=== PATIENT | female | born 1955 | race Caucasian/White ===

== ENCOUNTER 2017-04-20 06:55 | Observation (INO) | payer MEDICARE, OTHER, SELFPAY ==
[2017-04-20] VITALS (13 sets, daily range): BP systolic 121–162; BP diastolic 48–84; PULSE 67–99; RESP 14–22; TEMP 36.1–37.5; O2SAT 93–98; BMI 47.2; BMI 45.9; BMI 46.0
--- NOTE | 2017-04-20 07:13 | ED.VISSUMM ---
- ER Visit Summary Date of Service: 04/20/17 Chief Complaint: Dizzy meaning off balance History of Present Illness: The patient is a 61 F is a history of prior A. fib, DVT and PE, njb-qpntaqb-xfovifclc diabetes, hypertension and COPD. She is on Coumadin. This morning she felt off balance. She did fall 2 days ago and hit her head but denies any headache. His any room spinning. She denies any numbness, tingling or weakness to any of her extremities. She denies problems using her arms or legs. She denies any speech or acute visual changes. Physical Examination: Appearing female. Vital signs are stable and she is afebrile. Pulse ox 90% room air no signs of hypoxia. HEENT exam is unremarkable except she does have a small contusion by her right eyebrow that occurred when she fell 2 days ago. It is nontender. There is no facial droop. Normal speech. Neck nontender. Lungs clear to auscultation bilaterally. Heart regular rate and rhythm no murmur. Chest wall nontender. Abdomen is soft and nontender. No peritoneal signs. She is moving all 4 extremities. They appear to be neurovascularly intact. 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 Dorsi plantar flexion is intact. Back exam nontender. Neurologically she is awake and alert. Has normal speech. No facial droop. Fingertip to nose is within normal limits. Her NIH score lying in bed is normal and 0. Test Results: CT of her brain without contrast is read by the radiologist reviewed by me shows no acute bleed. Chronic changes and atrophy. No acute stroke. CBC normal except for platelet count of 145,000. She has had low platelet counts before. BMP normal. She is on Coumadin her INR is subtherapeutic at 1.3. Her EKG is a sinus rhythm a rate of 86. Emergency Department Course and Treatment: She is complaining of feeling off balance with a recent fall and on Coumadin. A CT of her head and labs will be obtained. Treatment Plan: On repeat exam she is doing well at 08 40. She was able to stand and able to walk but just felt off balance. She has no signs of vertigo. In the light that the patient is off balance she may have had a stroke that is not showing up on CAT scan or this may be secondary to her recent head injury. She is comfortable being admitted and I spoke to her and her family about that. I spoke to the hospitalist and she will be admitted. Disposition: Admit Impression: Acute dizziness and a sensation of being off balance of uncertain etiology Recent fall and head injury Subtherapeutic anticoagulation on Coumadin with an INR of 1.3. Prior history of A. fib, prior history of DVT and PEs and history of dmg-cgcynjc-hszbkwztr diabetes This note was generated with Qranio dictation software. It may contain incorrect words, spelling, and punctuation that were not noted in review of the chart prior to signing ED Disposition - Plan for ED Patient: Chief Complaint: Dizziness Referrals: Ruddy Corral Chi, MD [Primary Care Provider] -
--- NOTE | 2017-04-20 07:17 | ED.DCSUM_ITS ---
- ER Visit Summary Date of Service: 04/20/17 Chief Complaint: Dizzy meaning off balance History of Present Illness: The patient is a 61 F is a history of prior A. fib, DVT and PE, frh-fnpmdxq-lnaadxwik diabetes, hypertension and COPD. She is on Coumadin. This morning she felt off balance. She did fall 2 days ago and hit her head but denies any headache. His any room spinning. She denies any numbness, tingling or weakness to any of her extremities. She denies problems using her arms or legs. She denies any speech or acute visual changes. Physical Examination: Appearing female. Vital signs are stable and she is afebrile. Pulse ox 90% room air no signs of hypoxia. HEENT exam is unremarkable except she does have a small contusion by her right eyebrow that occurred when she fell 2 days ago. It is nontender. There is no facial droop. Normal speech. Neck nontender. Lungs clear to auscultation bilaterally. Heart regular rate and rhythm no murmur. Chest wall nontender. Abdomen is soft and nontender. No peritoneal signs. She is moving all 4 extremities. They appear to be neurovascularly intact. 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 Dorsi plantar flexion is intact. Back exam nontender. Neurologically she is awake and alert. Has normal speech. No facial droop. Fingertip to nose is within normal limits. Her NIH score lying in bed is normal and 0. Test Results: CT of her brain without contrast is read by the radiologist reviewed by me shows no acute bleed. Chronic changes and atrophy. No acute stroke. CBC normal except for platelet count of 145,000. She has had low platelet counts before. BMP normal. She is on Coumadin her INR is subtherapeutic at 1.3. Her EKG is a sinus rhythm a rate of 86. Emergency Department Course and Treatment: She is complaining of feeling off balance with a recent fall and on Coumadin. A CT of her head and labs will be obtained. Treatment Plan: On repeat exam she is doing well at 08 40. She was able to stand and able to walk but just felt off balance. She has no signs of vertigo. In the light that the patient is off balance she may have had a stroke that is not showing up on CAT scan or this may be secondary to her recent head injury. She is comfortable being admitted and I spoke to her and her family about that. I spoke to the hospitalist and she will be admitted. Disposition: Admit Impression: Acute dizziness and a sensation of being off balance of uncertain etiology Recent fall and head injury Subtherapeutic anticoagulation on Coumadin with an INR of 1.3. Prior history of A. fib, prior history of DVT and PEs and history of non-insulin -dependent diabetes This note was generated with Gigzolo dictation software. It may contain incorrect words, spelling, and punctuation that were not noted in review of the chart prior to signing ED Disposition - Plan for ED Patient: Chief Complaint: Dizziness Referrals: Ruddy Corral Chi, MD [Primary Care Provider] -
--- NOTE | 2017-04-20 07:17 | EKG12_ITS ---
Test Reason : DIZZINESS Blood Pressure : / mmHG Vent. Rate : 086 BPM Atrial Rate : 086 BPM P-R Int : 218 ms QRS Dur : 092 ms QT Int : 384 ms P-R-T Axes : 101 037 021 degrees QTc Int : 459 ms Sinus rhythm with 1st degree A-V block Otherwise normal ECG Confirmed by ADEEL ALBERTO ([id number]), greeting card editor UGO HENLEY ([id number]) on 04/24/2017 1:10:00 PM Referred By: JOEL Confirmed By:ADEEL ALBERTO
--- NOTE | 2017-04-20 07:17 | CT_ITS ---
STUDY: CT BRAIN WITHOUT CONTRAST REASON FOR EXAM: Female, 61 years old. Off balance. Head injury. Patient is on Coumadin. RADIATION DOSAGE (If Supplied By Facility): CTDIvol = ( 44.99 ) mGy, DLP = ( 779.24 ) mGycm TECHNIQUE: Transaxial CT imaging of the brain was performed without administration of intravenous contrast material. Individualized dose optimization techniques were used for this CT. COMPARISON: Comparison is made with prior study December 02, 2014. FINDINGS: Normal soft tissue structures. Normal calvarium. There is mild cerebral atrophy with widening of the extra-axial spaces and ventricular dilatation. Normal white matter tracts of the cerebral hemispheres. Normal basal ganglia and thalami. Normal brainstem. Normal cerebellum. There is no intracranial hemorrhage. There are no findings of an acute ischemic infarction. Minimal mucosal thickening of the ethmoid sinuses. CT/Brain/Head without Contrast IMPRESSION: Chronic involutional changes of the brain. Electronically Signed: Tariq Kapoor MD at 8:22 EST Tel [phone], Service support ,
[2017-04-20 07:40] LABS: Absolute Lymphocyte Count 1.85 X10^3/ul (0.83-4.51); Absolute Neutrophil Count 3.3 X10^3/uL (2.0-7.7); Basophil# 0.03 X10^3/uL; Basophil% 0.5 % (0-1); Eosinophil# 0.09 X10^3/uL; Eosinophils% 1.5 % (0-5); Hematocrit 38.7 % (37-47); Hemoglobin 13.1 g/dl (12.0-15.0); Lymphocyte # 1.85 X10^3/ul (4.0); Lymphocyte % 31.1 % (19-41); Mean Corp Hgb Conc 33.9 g/gl (32-36); Mean Corpuscular Hgb 33.5 pg (27.0-32.0); Mean Platelet Vol. 9.4 fl (6.2-12.0); Monocyte% 11.8 % (0-10); Neutrophil # 3.26 X10^3/uL (2.7-7.7); Neutrophil % 54.9 % (47-70); Platelet Count 145 K/mm3 (150-450); RBC Distribution Width CV 13.9 % (11.6-14.6); RBC Distribution Width SD 48.9 fl (35.1-43.9); Red Blood Count 3.91 M/mm3 (4.2-5.4); White Blood Count 5.9 K/mm3 (4.4-11.0)
[2017-04-20 07:41] LABS: POSITIVE DIFFERENTIAL NO
[2017-04-20 07:42] LABS: POSITIVE COUNT NO; POSITIVE MORPHOLOGY NO
[2017-04-20 07:44] LABS: Anion Gap 9 (5-15); BUN 15 mg/dL (7-18); Calcium,Total 8.4 mg/dL (8.5-10.1); Chloride 109 mmol/L (98-107); Creatinine, Serum 0.75 mg/dL (0.55-1.02); EST Glomerular Filtration Rate 83 mL/min (>60); Est Glom Filt Rate - Afr Amer 100 mL/min (>60); Estimated Creatinine Clearance 63.51 ml/min; Glucose 137 mg/dL (74-106); Potassium 4.5 mmol/L (3.5-5.1); Sodium Level 142 mmol/L (136-145)
[2017-04-20 08:02] LABS: International Normalized Ratio 1.3; Prothrombin Time (Protime)PT. 15.5 SECONDS (11.7-14.9)
[2017-04-20] MEDS: Ondansetron 4 MG/2 ML Vial IV (08:11)
--- NOTE | 2017-04-20 14:06 | ECHOD_ITS ---
Reason For Study: TIA/STROKE Procedure This was a 2D Doppler, Color Flow transthoracic echocardiogram. The study was technically difficult. Exam performed portable in patient room. Left Ventricle Normal size and thickness. The estimated ejection fraction is 65 %. Normal diastology for age. No regional wall motion abnormalities noted. Right Ventricle Normal size and thickness. Normal systolic function. Atria The left atrium is mildly enlarged. Normal right atrium. Normal atrial septum. Mitral Valve The mitral valve is structurally normal. No prolapse or stenosis seen. Tricuspid Valve Normal tricuspid valve. Trivial tricuspid valve insufficiency. Right ventricular systolic pressure estimated to be 24 mmHg. Aortic Valve Trisinus/trileaflet aortic valve. Mild diffuse aortic valve thickening. Mild focal aortic valve calcification. Mild aortic stenosis. Pulmonic Valve Normal pulmonic valve. Great Vessels Normal aortic root. Normal arch. Normal inferior vena cava. Inferior vena cava collapse with sniff. Pericardium/Pleural No pericardial effusion. MMode/2D Measurements & Calculations LVIDd: 4.6 cm IVSd: 0.86 cm LVOT diam: 1.9 cm LVIDs: 3.0 cm LVPWd: 1.0 cm LVOT area: 2.8 cm2 RVDd: 2.8 cm FS: 34.2 % Ao root diam: 3.0 cm LAV(MOD-bp): 58.0 ml EDV(MOD-sp4): 95.7 ml LA dimension: 3.9 cm LAV(MOD-bp) Indexed: 27.0 ml/m2 ESV(MOD-sp4): 41.0 ml LAV(MOD-sp2): 59.3 ml EF(MOD-sp4): 57.2 % LAV(MOD-sp4): 55.2 ml EDV(MOD-sp2): 108.9 ml SV(MOD-sp4): 54.7 ml SV(MOD-sp2): 58.7 ml EF(MOD-sp2): 53.9 % LA A4 area: 19.8 cm2 RA A4 area: 13.3 cm2 Doppler Measurements & Calculations MV E max saroj: 106.2 cm/sec Ao V2 max: 221.9 cm/sec LV V1 max: 127.0 cm/sec MV A max saroj: 66.9 cm/sec Ao max P.7 mmHg LV V1 max P.4 mmHg MV E/A: 1.6 Ao V2 mean: 149.9 cm/sec LV V1 mean P.2 mmHg Ao mean P.5 mmHg LV V1 mean: 80.5 cm/sec Ao V2 VTI: 45.2 cm LV V1 VTI: 29.8 cm KRISHNA(I,D): 1.8 cm2 KRISHNA(V,D): 1.6 cm2 SV(LVOT): 82.9 ml PA V2 max: 132.7 cm/sec TR max saroj: 217.5 cm/sec TR max P.9 mmHg Interpretation Summary The estimated ejection fraction is 65 %. Normal diastology for age. The left atrium is mildly enlarged. Trivial tricuspid valve insufficiency. Right ventricular systolic pressure estimated to be 24 mmHg. Mild aortic stenosis. Compared to echo report dated 03/08/2016, no appreciable changes noted. The study was technically difficult. Ordering Physician: Ubaldo Kilpatrick Referring Physician: Ruddy Croral Chi Performed By: Emily Pederson RDCS, RVT
--- NOTE | 2017-04-20 14:06 | MRI_ITS ---
MR Brain WO/W Contrast INDICATION: vertigo SINCE THIS A.M. COMPARISON: None TECHNIQUE: Multiplanar multisequence MRI examination of the brain without and with IV contrast. 10 mL of gadolinium was given intravenously. FINDINGS: There is no evidence of restricted diffusion to suggest acute infarction. The ventricular system is normal in size and symmetric. Cortical sulci and basal cisterns are well seen. The supra and infratentorial brain parenchyma demonstrates normal signal, appearance is stable compared to the prior study from November 2012. There is no evidence of parenchymal hemorrhage, mass effect, midline shift, or abnormal extra-axial collection. Cerebellopontine angles are normal and symmetric. The mastoid air cells are clear. The paranasal sinuses are clear. After contrast administration, there is no abnormal enhancement identified. MRI/Brain W/WO Contrast IMPRESSION: Unremarkable, age-appropriate MRI examination of the brain. at 2116 Reported and signed by: Corazon Holm MD Electronically Signed: Corazon Holm MD at 20:14 EST Tel , Service support ,
--- NOTE | 2017-04-20 14:06 | MRI_ITS ---
MRA Neck WO/W Contrast INDICATION: vertigo SINCE THIS A.M. COMPARISON: None TECHNIQUE: MR angiogram of the neck without and with IV contrast and 2-D yopi-aq-snvvya technique with 3-D reformatted images. FINDINGS: Study is slightly limited by motion and patient body habitus. Origin of the great vessels from the aortic arch appears within normal limits. Detailed evaluation of the origins of the common carotid arteries is not possible. There is positive flow related signal in the common carotid arteries bilaterally. There is no convincing evidence of significant luminal narrowing at the origins of the internal carotid arteries. Internal carotid arteries are normal and symmetric to the level of the skull base. Posterior circulation demonstrates positive flow related signal in the vertebral arteries, vertebral arteries appear codominant. MRI/MRA Neck WITH and W/O Contrast IMPRESSION: Slightly Limited study. No abnormality identified. at 1711 Reported and signed by: Corazon Holm MD Electronically Signed: Corazon Holm MD at 16:09 EST Tel , Service support ,
--- NOTE | 2017-04-20 14:06 | MRI_ITS ---
MRA Head W/O Contrast INDICATION: vertigo SINCE THIS A.M. COMPARISON: None TECHNIQUE: MR angiogram of the [place] of [place] and 3-D gqke-dz-uzyaxy technique with 3-D reformatted images. FINDINGS: There is symmetric flow related signal in the intracranial portions of the internal carotid arteries and symmetric supply to the anterior middle cerebral arteries. Significant motion artifact is present with doubling artifact. There is normal flow related signal in the basilar artery, the basilar artery gives rise to both posterior cerebral arteries. MRI/MRA Head ONLY without Contrast IMPRESSION: Limited study due to motion. Evaluation for small aneurysm is not possible. No evidence of large vessel occlusion. at 7054 Reported and signed by: Corazon Holm MD Electronically Signed: Corazon Holm MD at 16:13 EST Tel , Service support ,
--- NOTE | 2017-04-20 14:44 | PCM.HP.STD ---
Problem List (1) Dizziness Status: Acute (2) Atrial fibrillation Status: Chronic (3) Benign essential hypertension Status: Chronic (4) Dyslipidemia Status: Chronic (5) Morbid obesity Status: Chronic (6) Obstructive sleep apnea Status: Chronic (7) Hx of pulmonary embolus Status: Chronic History of Present Illness Date of Admission: 04/20/17 Chief Complaint: dizziness The patient is a 61 year old F awoke with dizziness. Pt attempted to ambulate in the halls and was unsteady. Symptoms improved when sitting, but worse when standing up. Never had this before. Sought attention in the ED. CT negative for any acute process. Also, complained of some transient numbness of her right cheek. [] Past Medical History Past Medical History (Chronic Problems): Chronic Problems Atrial fibrillation (Chronic) Benign essential hypertension (Chronic) Dyslipidemia (Chronic) Morbid obesity (Chronic) Status post radiofrequency ablation operation for arrhythmia (Chronic) Obstructive sleep apnea (Chronic) Hx of pulmonary embolus (Chronic) Allergies flecainide [Flecainide] Allergy (Verified 04/20/17 06:57) Rash Home Medications: Ambulatory Orders Medication Instructions Recorded Albuterol Inhaler [Ventolin Hfa 2 puff INHALATION Q4H PRN PRN 04/20/17 (SP)] Atorvastatin Calcium [Lipitor] 40 mg PO QHS 04/20/17 Budesonide/Formoterol 160/4.5 2 puff INHALATION BID 04/20/17 [Symbicort 160/4.5 Mcg Inhaler (SP)] Calcium Carbonate [Calcium] 2 tab PO DAILY 04/20/17 Celecoxib [Celebrex] 200 mg PO DAILY 04/20/17 Ergocalciferol [Vitamin D] 50,000 unit PO QMONTH 04/20/17 Metformin HCl [Glucophage] 1,000 mg PO BIDCM 04/20/17 Multivitamins,Therapeutic 1 tablet PO DAILY 04/20/17 [Multivitamin] Olmesartan/Hydrochlorothiazide 1 tab PO DAILY 04/20/17 [Benicar Hct 40-12.5 MG Tab] Pramipexole Di-HCl [Mirapex] 0.5 mg PO BID 04/20/17 Solifenacin Succinate [Vesicare] 5 mg PO DAILY 04/20/17 Vit A/Vit C/Vit E/Zinc/Copper 1 each PO DAILY 04/20/17 [Preservision Areds Softgel] Vortioxetine Hydrobromide 20 mg PO DAILY 04/20/17 [Brintellix] Warfarin Sodium [Coumadin] 11 mg PO DAILY 04/20/17 Surgical History: rotator cuff repair, - Smoking Status: Never smoker - *Family History Paternal History Items: Diabetes, Heart Disease Maternal History Items: No pertinent history Review of Systems Constitutional: Denies: Chills, Fever, Weight Change Eyes: Denies: Blurred vision, Double vision HEENT: Denies: Head Aches, Sinus Congestion, Sinus Drainage Cardiovascular: Denies: Chest Pain, Palpitations Respiratory: Denies: Cough, Shortness of breath at rest, Sputum production Gastrointestinal: Denies: Abdominal Pain, Nausea, Vomiting Genitourinary: Denies: Dysuria Musculoskeletal: Denies: Joint Pain, Joint Tenderness Skin: Denies: Rash, Wounds Neurological: Reports: Balance problems, Numbness - right cheek. Denies: Blurred vision, Double vision, Change in Speech, Slurred speech, Confusion, Focal weakness, Incoordination Psychiatric: Reports: Depression Hematologic/ Lymphatic: Reports: Hx of blood clot. Denies: Easy Bruising, Easy Bleeding VTE Information - Inpt Only VTE Present on Admission: Yes Patient Problems: Active and Suspected Problems Dizziness (Acute) - Physical Exam General: Alert, Cooperative, No apparent distress HEENT: Atraumatic, Normocephalic Neck: No Nodes, Thyroid Normal Size and Texture Lungs: Clear to auscultation, Normal air movement, No rhonchi, No wheeze Cardiovascular: Regular rate, Regular Rhythm, Normal S1, Normal S2, No murmurs Abdomen: Bowel Sounds Present, Soft, Non Tender, Non-Distended, No Hepato-splenomegaly Extremities: No edema, No Calf Tenderness Skin: No rashes, No breakdown Musculoskeletal: No Tenderness to Palpation of Joints or Extremities, No Muscle Wasting Neurological: Cranial nerves II-XII grossly intact, Neuro grossly intact, Motor Exam 5/5 strength throughout, Muscle tone normal, Sensory exam intact to light touch and pain, Coordination normal Psych/Mental Status: Normal Affect, Appropriate Vital Signs Temp Pulse Resp BP Pulse Ox 36.5 C L 86 18 139/69 H 97 04/20/17 13:50 04/20/17 13:50 04/20/17 13:50 04/20/17 13:50 04/20/17 13:50 Oxygen Delivery Method Room Air Weight: 117.7 kg Body Mass Index (BMI) 45.9 Clinical Impression(s) from Imaging Studies Brain CT 04/20/17 07:17 IMPRESSION: Chronic involutional changes of the brain. Electronically Signed: Tariq Kapoor MD at 8:22 EST Tel [phone], Service support , Laboratory Results - last 24 hr 04/20/17 04/20/17 04/20/17 07:10 07:10 07:35 WBC 5.9 RBC 3.91 L Hgb 13.1 Hct 38.7 MCV 99.0 MCH 33.5 H MCHC 33.9 RDW 13.9 RDW Differential 48.9 H Plt Count 145 L MPV 9.4 Immature Gran % (Auto) 0.200 Neut % (Auto) 54.9 Lymph % (Auto) 31.1 [place] % (Auto) 11.8 H Eos % (Auto) 1.5 Baso % (Auto) 0.5 Absolute Neuts (auto) 3.3 Absolute Lymphs (auto) 1.85 Total Counted Not Reportable PT 15.5 H INR 1.3 Sodium 142 Potassium 4.5 Chloride 109 H Carbon Dioxide 24.0 Anion Gap 9 BUN 15 Creatinine 0.75 Estim Creat Clear Calc 63.51 Est GFR (MDRD) Af Amer 100 Est GFR (MDRD) Non-Af 83 BUN/Creatinine Ratio 20.0 Glucose 137 H Calcium 8.4 L Assessment/Plan Active and Suspected Problems Dizziness (Acute) 1. dizziness suspect peripheral, though cannot rule out central process check MRI brain, MRA head and neck, 2d echo if + CVA, consult neurology 2. VTE INR subtherapuetic add lovenox 3. h/o afib on telemetry, monitor 4. DVT proph: anticoagulation Code Visit OBSV E&M: 05619 Initial observation care L3
--- NOTE | 2017-04-20 14:52 | HP.PCM_ITS ---
Problem List (1) Dizziness Status: Acute (2) Atrial fibrillation Status: Chronic (3) Benign essential hypertension Status: Chronic (4) Dyslipidemia Status: Chronic (5) Morbid obesity Status: Chronic (6) Obstructive sleep apnea Status: Chronic (7) Hx of pulmonary embolus Status: Chronic History of Present Illness Date of Admission: 04/20/17 Chief Complaint: dizziness The patient is a 61 year old F awoke with dizziness. Pt attempted to ambulate in the halls and was unsteady. Symptoms improved when sitting, but worse when standing up. Never had this before. Sought attention in the ED. CT negative for any acute process. Also, complained of some transient numbness of her right cheek. [] Past Medical History Past Medical History (Chronic Problems): Chronic Problems Atrial fibrillation (Chronic) Benign essential hypertension (Chronic) Dyslipidemia (Chronic) Morbid obesity (Chronic) Status post radiofrequency ablation operation for arrhythmia (Chronic) Obstructive sleep apnea (Chronic) Hx of pulmonary embolus (Chronic) Allergies flecainide [Flecainide] Allergy (Verified 04/20/17 06:57) Rash Home Medications: Ambulatory Orders Medication Instructions Recorded Albuterol Inhaler [Ventolin Hfa 2 puff INHALATION Q4H PRN PRN 04/20/17 (SP)] Atorvastatin Calcium [Lipitor] 40 mg PO QHS 04/20/17 Budesonide/Formoterol 160/4.5 2 puff INHALATION BID 04/20/17 [Symbicort 160/4.5 Mcg Inhaler (SP)] Calcium Carbonate [Calcium] 2 tab PO DAILY 04/20/17 Celecoxib [Celebrex] 200 mg PO DAILY 04/20/17 Ergocalciferol [Vitamin D] 50,000 unit PO QMONTH 04/20/17 Metformin HCl [Glucophage] 1,000 mg PO BIDCM 04/20/17 Multivitamins,Therapeutic 1 tablet PO DAILY 04/20/17 [Multivitamin] Olmesartan/Hydrochlorothiazide 1 tab PO DAILY 04/20/17 [Benicar Hct 40-12.5 MG Tab] Pramipexole Di-HCl [Mirapex] 0.5 mg PO BID 04/20/17 Solifenacin Succinate [Vesicare] 5 mg PO DAILY 04/20/17 Vit A/Vit C/Vit E/Zinc/Copper 1 each PO DAILY 04/20/17 [Preservision Areds Softgel] Vortioxetine Hydrobromide 20 mg PO DAILY 04/20/17 [Brintellix] Warfarin Sodium [Coumadin] 11 mg PO DAILY 04/20/17 Surgical History: rotator cuff repair, - Smoking Status: Never smoker - *Family History Paternal History Items: Diabetes, Heart Disease Maternal History Items: No pertinent history Review of Systems Constitutional: Denies: Chills, Fever, Weight Change Eyes: Denies: Blurred vision, Double vision HEENT: Denies: Head Aches, Sinus Congestion, Sinus Drainage Cardiovascular: Denies: Chest Pain, Palpitations Respiratory: Denies: Cough, Shortness of breath at rest, Sputum production Gastrointestinal: Denies: Abdominal Pain, Nausea, Vomiting Genitourinary: Denies: Dysuria Musculoskeletal: Denies: Joint Pain, Joint Tenderness Skin: Denies: Rash, Wounds Neurological: Reports: Balance problems, Numbness - right cheek. Denies: Blurred vision, Double vision, Change in Speech, Slurred speech, Confusion, Focal weakness, Incoordination Psychiatric: Reports: Depression Hematologic/ Lymphatic: Reports: Hx of blood clot. Denies: Easy Bruising, Easy Bleeding VTE Information - Inpt Only VTE Present on Admission: Yes Patient Problems: Active and Suspected Problems Dizziness (Acute) - Physical Exam General: Alert, Cooperative, No apparent distress HEENT: Atraumatic, Normocephalic Neck: No Nodes, Thyroid Normal Size and Texture Lungs: Clear to auscultation, Normal air movement, No rhonchi, No wheeze Cardiovascular: Regular rate, Regular Rhythm, Normal S1, Normal S2, No murmurs Abdomen: Bowel Sounds Present, Soft, Non Tender, Non-Distended, No Hepato- splenomegaly Extremities: No edema, No Calf Tenderness Skin: No rashes, No breakdown Musculoskeletal: No Tenderness to Palpation of Joints or Extremities, No Muscle Wasting Neurological: Cranial nerves II-XII grossly intact, Neuro grossly intact, Motor Exam 5/5 strength throughout, Muscle tone normal, Sensory exam intact to light touch and pain, Coordination normal Psych/Mental Status: Normal Affect, Appropriate Vital Signs Temp Pulse Resp BP Pulse Ox 36.5 C L 86 18 139/69 H 97 04/20/17 13:50 04/20/17 13:50 04/20/17 13:50 04/20/17 13:50 04/20/17 13:50 Oxygen Delivery Method Room Air Weight: 117.7 kg Body Mass Index (BMI) 45.9 Clinical Impression(s) from Imaging Studies Brain CT 04/20/17 07:17 IMPRESSION: Chronic involutional changes of the brain. Electronically Signed: Tariq Kapoor MD at 8:22 EST Tel [phone], Service support , Laboratory Results - last 24 hr 04/20/17 04/20/17 04/20/17 07:10 07:10 07:35 WBC 5.9 RBC 3.91 L Hgb 13.1 Hct 38.7 MCV 99.0 MCH 33.5 H MCHC 33.9 RDW 13.9 RDW Differential 48.9 H Plt Count 145 L MPV 9.4 Immature Gran % (Auto) 0.200 Neut % (Auto) 54.9 Lymph % (Auto) 31.1 [place] % (Auto) 11.8 H Eos % (Auto) 1.5 Baso % (Auto) 0.5 Absolute Neuts (auto) 3.3 Absolute Lymphs (auto) 1.85 Total Counted Not Reportable PT 15.5 H INR 1.3 Sodium 142 Potassium 4.5 Chloride 109 H Carbon Dioxide 24.0 Anion Gap 9 BUN 15 Creatinine 0.75 Estim Creat Clear Calc 63.51 Est GFR (MDRD) Af Amer 100 Est GFR (MDRD) Non-Af 83 BUN/Creatinine Ratio 20.0 Glucose 137 H Calcium 8.4 L Assessment/Plan Active and Suspected Problems Dizziness (Acute) 1. dizziness * suspect peripheral, though cannot rule out central process * check MRI brain, MRA head and neck, 2d echo * if + CVA, consult neurology 2. VTE * INR subtherapuetic * add lovenox 3. h/o afib * on telemetry, monitor 4. DVT proph: anticoagulation Code Visit OBSV E&M: 97907 Initial observation care L3
--- NOTE | 2017-04-20 16:21 | NURSING ---
REPORT GIVEN TO KOFI House RN
[2017-04-20] MEDS: metFORMIN HCl 1,000 MG Tablet 1000 MG PO (16:36)
[2017-04-20] MEDS: Enoxaparin 40 MG/0.4 ML Syringe SC (16:36)
[2017-04-20 16:41] LABS: Bedside Glucose 127 mg/dL (70-110)
[2017-04-20] MEDS: Albuterol 2.5 MG/3 ML VIAL.NEB. INHALATION (19:25)
[2017-04-20] MEDS: Budesonide Respules 0.5 MG/2 ML AMPUL.NEB. INHALATION (19:26)
[2017-04-20] MEDS: Atorvastatin Calcium 40 MG Tablet PO (21:02)
[2017-04-20 22:06] LABS: Bedside Glucose 135 mg/dL (70-110)
[2017-04-21 02:57] VITALS: PULSE 78
[2017-04-21 03:10] VITALS: BP 117/44; PULSE 73; RESP 18; TEMP 36.7; O2SAT 95
[2017-04-21 06:14] LABS: Absolute Neutrophil Count 3.3 X10^3/uL (2.0-7.7); Basophil# 0.02 X10^3/uL; Basophil% 0.3 % (0-1); Eosinophil# 0.07 X10^3/uL; Eosinophils% 1.1 % (0-5); Hematocrit 37.3 % (37-47); Hemoglobin 12.4 g/dl (12.0-15.0); Lymphocyte % 34.4 % (19-41); Mean Corp Hgb Conc 33.2 g/gl (32-36); Mean Corpuscular Hgb 32.8 pg (27.0-32.0); Mean Corpuscular Volume 98.7 fL (81-99); Mean Platelet Vol. 9.4 fl (6.2-12.0); Monocyte% 9.8 % (0-10); Neutrophil % 54.2 % (47-70); Platelet Count 153 K/mm3 (150-450); RBC Distribution Width SD 50.2 fl (35.1-43.9); Red Blood Count 3.78 M/mm3 (4.2-5.4); White Blood Count 6.1 K/mm3 (4.4-11.0)
[2017-04-21 06:15] LABS: POSITIVE COUNT NO; POSITIVE DIFFERENTIAL NO; POSITIVE MORPHOLOGY NO
[2017-04-21 06:28] LABS: International Normalized Ratio 1.7; Prothrombin Time (Protime)PT. 19.3 SECONDS (11.7-14.9)
[2017-04-21 06:56] LABS: Bedside Glucose 136 mg/dL (70-110)
[2017-04-21 07:00] VITALS: PULSE 70
[2017-04-21 07:00] LABS: Anion Gap 8 (5-15); BUN 13 mg/dL (7-18); BUN/Creat Ratio 17.9 RATIO (10-20); Calcium,Total 8.6 mg/dL (8.5-10.1); Chloride 105 mmol/L (98-107); Cholesterol 156 mg/dL (200); Creatinine, Serum 0.73 mg/dL (0.55-1.02); EST Glomerular Filtration Rate 86 mL/min (>60); Est Glom Filt Rate - Afr Amer 104 mL/min (>60); Estimated Creatinine Clearance 65.25 ml/min; Glucose 117 mg/dL (74-106); High Density Lipoprotein 52 mg/dL; Potassium 3.9 mmol/L (3.5-5.1); Sodium Level 142 mmol/L (136-145); Triglycerides 149 mg/dL; Very Low Density Lipoprotein 30 mg/dL (5-40)
[2017-04-21 07:24] VITALS: PULSE 74; RESP 16
[2017-04-21] MEDS: Budesonide Respules 0.5 MG/2 ML AMPUL.NEB. INHALATION (07:24)
[2017-04-21] MEDS: Albuterol 2.5 MG/3 ML VIAL.NEB. INHALATION (07:24)
--- NOTE | 2017-04-21 08:26 | PCM.PN.HOSP ---
Patient Problems: Active and Suspected Problems Dizziness (Acute) Subjective: no further dizziness. has been up w/o dizziness. feeling back to normal. never had this dizziness before. Vitals/I&O's: Vital Signs Temp Pulse Resp BP Pulse Ox 36.7 C 74 16 117/44 L 95 04/21/17 03:10 04/21/17 07:24 04/21/17 07:24 04/21/17 03:10 04/21/17 03:10 Oxygen Delivery Method Room Air Weight: 117.7 kg Body Mass Index (BMI) 45.9 Intake and Output for Last 24 Hours 04/19/17 04/20/17 04/21/17 23:59 23:59 23:59 Intake Total 720 / 720 240 / 240 Balance 720 / 720 240 / 240 General: Alert, Cooperative, No apparent distress HEENT: Atraumatic, Normocephalic Laboratory Results 04/20/17 16:34: POC Glucose 127 H 04/20/17 20:53: POC Glucose 135 H 04/21/17 05:40: WBC 6.1, RBC 3.78 L, Hgb 12.4, Hct 37.3, MCV 98.7, MCH 32.8 H, MCHC 33.2, RDW 14.0, RDW Differential 50.2 H, Plt Count 153, MPV 9.4, Immature Gran % (Auto) 0.200, Neut % (Auto) 54.2, Lymph % (Auto) 34.4, [place] % (Auto) 9.8, Eos % (Auto) 1.1, Baso % (Auto) 0.3, Absolute Neuts (auto) 3.3, Absolute Lymphs (auto) 2.10, Total Counted Not Reportable 04/21/17 05:40: PT 19.3 H, INR 1.7 04/21/17 05:40: Sodium 142, Potassium 3.9, Chloride 105, Carbon Dioxide 29.0, Anion Gap 8, BUN 13, Creatinine 0.73, Estim Creat Clear Calc 65.25, Est GFR (MDRD) Af Amer 104, Est GFR (MDRD) Non-Af 86, BUN/Creatinine Ratio 17.9, Glucose 117 H, Calcium 8.6, Triglycerides 149, Cholesterol 156, LDL Cholesterol 74, VLDL Cholesterol 30, HDL Cholesterol 52 04/21/17 06:50: POC Glucose 136 H Current Medications Acetaminophen (Tylenol) 650 mg PO Q6H PRN PRN PRN Reason: Mild Pain (1-3)/Temp > 100.7 F Albuterol Sulfate (Ventolin Aerosols) 2.5 mg INHALATION Q4H PRN PRN Reason: COUGH/WHEEZE Albuterol Sulfate (Ventolin Aerosols) 2.5 mg INHALATION Q6HWA.RT [facility] Last Admin: 04/21/17 07:24 Dose: 2.5 mg Aspirin (Aspirin, Baby) 81 mg PO DAILY@0800 [facility] Atorvastatin Calcium (Lipitor) 40 mg PO QHS [facility] Last Admin: 04/20/17 21:02 Dose: 40 mg Budesonide (Pulmicort Aerosol) 0.5 mg INHALATION Q12H.[facility] Last Admin: 04/21/17 07:24 Dose: 0.5 mg Calcium Carbonate (Tums) [facility] Enoxaparin Sodium (Lovenox) 40 mg SC DAILY@1000 [facility] Last Admin: 04/20/17 16:36 Dose: 40 mg Ergocalciferol (Vitamin D) 50,000 unit PO QMONTH [facility] Hydrochlorothiazide (Hydrochlorothiazide) 12.5 mg PO DAILY [facility] Last Admin: 04/20/17 16:27 Dose: Not Given Insulin Aspart (Novolog Flexpen (Bkc)) 0 units SC TIDAC [facility] PRN Reason: Protocol Last Admin: 04/21/17 07:28 Dose: Not Given Losartan Potassium (Cozaar) 100 mg PO DAILY [facility] Last Admin: 04/20/17 16:26 Dose: Not Given Magnesium Hydroxide (Milk Of Magnesia) 30 ml PO DAILY PRN PRN Reason: Constipation Metformin HCl (Glucophage) 1,000 mg [facility]ID[facility] Last Admin: 04/20/17 16:36 Dose: 1,000 mg Multivitamins (Multivitamin) 1 tablet [facility] Last Admin: 04/20/17 16:26 Dose: Not Given Ondansetron HCl (Zofran) 4 mg IV Q8H PRN PRN PRN Reason: NAUSEA Warfarin Sodium 6 mg/ Warfarin (Sodium 5 mg) 11 mg PO DAILY@1700 [facility] Last Admin: 04/20/17 16:53 Dose: 11 mg Assessment/Plan Active and Suspected Problems Dizziness (Acute) 1. dizziness suspect peripheral, though cannot rule out central process MRI/MRA negative PRN meclizine no need for vestibular rehab at this time as pt is asymptomatic and 1x occurrence. 2. VTE INR subtherapuetic add lovenox 3. h/o afib on telemetry, monitor 4. DVT proph: anticoagulation
--- NOTE | 2017-04-21 08:30 | PCM.DC ---
- Discharge Diagnoses Current Active Problems: Current Active and Chronic Problems Dizziness (Acute) You will use the following diet at home:: Calorie/Carbohydrate Controlled (specify 1200, 1400, etc) - 2000 kcal/day Your food should be the consistency of: Regular Your liquids should be the consistency of: Regular/Thin Discharge Activity: Return to Normal Activity Call your doctor if you observe: - - worsening dizziness Allergies/Adverse Reactions: Allergies flecainide [Flecainide] Allergy (Verified 04/20/17 06:57) Rash Medications to take at Discharge Albuterol Inhaler [Ventolin Hfa] 2 puff INHALATION Q4H PRN PRN 04/20/17 Atorvastatin Calcium [Lipitor] 40 mg PO QHS 04/20/17 Budesonide/Formoterol 160/4.5 [Symbicort 160/4.5 Mcg Inhaler (SP)] 2 puff INHALATION BID 04/20/17 Calcium Carbonate [Calcium] 2 tab PO DAILY 04/20/17 Celecoxib [Celebrex] 200 mg PO DAILY 04/20/17 Ergocalciferol [Vitamin D] 50,000 unit PO QMONTH 04/20/17 Metformin HCl [Glucophage] 1,000 mg PO BIDCM 04/20/17 Multivitamins,Therapeutic [Multivitamin] 1 tablet PO DAILY 04/20/17 Olmesartan/Hydrochlorothiazide [Benicar Hct 40-12.5 MG Tab] 1 tab PO DAILY 04/20/17 Pramipexole Di-HCl [Mirapex] 0.5 mg PO BID 04/20/17 Solifenacin Succinate [Vesicare] 5 mg PO DAILY 04/20/17 Vit A/Vit C/Vit E/Zinc/Copper [Preservision Areds Softgel] 1 each PO DAILY 04/20/17 Vortioxetine Hydrobromide [Trintellix] 20 mg PO DAILY 04/20/17 Warfarin Sodium [Coumadin] 11 mg PO DAILY 04/20/17 Meclizine HCl 25 mg PO TID PRN #15 tab.chew 04/21/17 The following prescriptions were given: Meclizine HCl 25 mg PO TID PRN #15 tab.chew PRN Reason: Dizziness Primary Care Physician: Ruddy Corral Chi, MD [Primary Care Provider] - Within 2 Weeks Proposed Discharge Date: 04/21/17
--- NOTE | 2017-04-21 08:33 | DCINST_ITS ---
- Discharge Diagnoses Current Active Problems: Current Active and Chronic Problems Dizziness (Acute) You will use the following diet at home:: Calorie/Carbohydrate Controlled ( specify 1200, 1400, etc) - 2000 kcal/day Your food should be the consistency of: Regular Your liquids should be the consistency of: Regular/Thin Discharge Activity: Return to Normal Activity Call your doctor if you observe: - - worsening dizziness Allergies/Adverse Reactions: Allergies flecainide [Flecainide] Allergy (Verified 04/20/17 06:57) Rash Medications to take at Discharge Albuterol Inhaler [Ventolin Hfa] 2 puff INHALATION Q4H PRN PRN 04/20/17 Atorvastatin Calcium [Lipitor] 40 mg PO QHS 04/20/17 Budesonide/Formoterol 160/4.5 [Symbicort 160/4.5 Mcg Inhaler (SP)] 2 puff INHALATION BID 04/20/17 Calcium Carbonate [Calcium] 2 tab PO DAILY 04/20/17 Celecoxib [Celebrex] 200 mg PO DAILY 04/20/17 Ergocalciferol [Vitamin D] 50,000 unit PO QMONTH 04/20/17 Metformin HCl [Glucophage] 1,000 mg PO BIDCM 04/20/17 Multivitamins,Therapeutic [Multivitamin] 1 tablet PO DAILY 04/20/17 Olmesartan/Hydrochlorothiazide [Benicar Hct 40-12.5 MG Tab] 1 tab PO DAILY 04/20 Pramipexole Di-HCl [Mirapex] 0.5 mg PO BID 04/20/17 Solifenacin Succinate [Vesicare] 5 mg PO DAILY 04/20/17 Vit A/Vit C/Vit E/Zinc/Copper [Preservision Areds Softgel] 1 each PO DAILY 04/20 Vortioxetine Hydrobromide [Trintellix] 20 mg PO DAILY 04/20/17 Warfarin Sodium [Coumadin] 11 mg PO DAILY 04/20/17 Meclizine HCl 25 mg PO TID PRN #15 tab.chew 04/21/17 The following prescriptions were given: Meclizine HCl 25 mg PO TID PRN #15 tab.chew PRN Reason: Dizziness Primary Care Physician: Ruddy Corral Chi, MD [Primary Care Provider] - Within 2 Weeks Proposed Discharge Date: 04/21/17
--- NOTE | 2017-04-21 08:33 | PCM.DC.SUM ---
Discharge Date and Diagnosis - Problem List Patient Problems: Active and Suspected Problems Dizziness (Acute) Date of Admission: 04/20/17 Date of Discharge: 04/21/17 - Primary Discharge Diagnosis Active and Suspected Problems Dizziness (Acute) - Secondary Discharge Diagnosis Chronic Problems Atrial fibrillation (Chronic) Benign essential hypertension (Chronic) Dyslipidemia (Chronic) Morbid obesity (Chronic) Status post radiofrequency ablation operation for arrhythmia (Chronic) Obstructive sleep apnea (Chronic) Hx of pulmonary embolus (Chronic) Hospital Course and Treatment Imaging Results: Clinical Impression(s) from Imaging Studies Brain CT 04/20/17 07:17 IMPRESSION: Chronic involutional changes of the brain. Electronically Signed: Tariq Kapoor MD at 8:22 EST Tel [phone], Service support , Brain MRI 04/20/17 14:06 IMPRESSION: Unremarkable, age-appropriate MRI examination of the brain. at 2116 Reported and signed by: Corazon Holm MD Electronically Signed: Corazon Holm MD at 20:14 EST Tel , Service support , Head MRA 04/20/17 14:06 IMPRESSION: Limited study due to motion. Evaluation for small aneurysm is not possible. No evidence of large vessel occlusion. at 8934 Reported and signed by: Corazon Holm MD Electronically Signed: Corazon Holm MD at 16:13 EST Tel , Service support , Neck MRA 04/20/17 14:06 IMPRESSION: Slightly Limited study. No abnormality identified. at 1201 Reported and signed by: Corazon Holm MD Electronically Signed: Corazon Holm MD at 16:09 EST Tel , Service support , Operations: None Procedures: None Summary of Care Provided: The patient is a 61 year old F presents with acute onset of dizziness upon awakening. Dizziness was positional. Patient never had events like this before. Patient was admitted and underwent a stroke workup with MRI and MRA. Those were negative. It is felt that the dizziness was peripheral such as benign paroxysmal positional vertigo. Patient will be provided his prescription for meclizine to be used as needed. Given that she has no symptoms at this time is been an isolated event that lasted less than 24 hours do not feel that vestibular rehab is necessary at this time though it could be considered at a later point if patient does have recurrent symptoms. [] Discharge Diet: 2000 Calorie Control Diet Discharge Activity: Return to Normal Activity Call your doctor if you observe: - - worsening dizziness Home Medications: Medications to take at Discharge Albuterol Inhaler [Ventolin Hfa] 2 puff INHALATION Q4H PRN PRN 04/20/17 Atorvastatin Calcium [Lipitor] 40 mg PO QHS 04/20/17 Budesonide/Formoterol 160/4.5 [Symbicort 160/4.5 Mcg Inhaler (SP)] 2 puff INHALATION BID 04/20/17 Calcium Carbonate [Calcium] 2 tab PO DAILY 04/20/17 Celecoxib [Celebrex] 200 mg PO DAILY 04/20/17 Ergocalciferol [Vitamin D] 50,000 unit PO QMONTH 04/20/17 Metformin HCl [Glucophage] 1,000 mg PO BIDCM 04/20/17 Multivitamins,Therapeutic [Multivitamin] 1 tablet PO DAILY 04/20/17 Olmesartan/Hydrochlorothiazide [Benicar Hct 40-12.5 MG Tab] 1 tab PO DAILY 04/20/17 Pramipexole Di-HCl [Mirapex] 0.5 mg PO BID 04/20/17 Solifenacin Succinate [Vesicare] 5 mg PO DAILY 04/20/17 Vit A/Vit C/Vit E/Zinc/Copper [Preservision Areds Softgel] 1 each PO DAILY 04/20/17 Vortioxetine Hydrobromide [Trintellix] 20 mg PO DAILY 04/20/17 Warfarin Sodium [Coumadin] 11 mg PO DAILY 04/20/17 Meclizine HCl 25 mg PO TID PRN #15 tab.chew 04/21/17 Following Prescrptions Were Given to Patient: Meclizine HCl 25 mg PO TID PRN #15 tab.chew PRN Reason: Dizziness Primary Care Physician: Ruddy Corral Chi, MD [Primary Care Provider] - Within 2 Weeks Disposition: Home Minutes spent on discharge:: 25 Patient Condition:: Good Meaningful Use Info Meaningful Use Diagnoses (Choose all that apply): None applicable Code Visit OBSV E&M: 90269 Observation care discharge
[2017-04-21 08:42] VITALS: BP 132/66; BP 135/68; BP 138/67; PULSE 84; PULSE 88; PULSE 93
[2017-04-21 08:51] VITALS: BP 135/68; PULSE 94; RESP 12; TEMP 36.7; O2SAT 94
[2017-04-21 08:56] VITALS: BMI 45.9
== END 2017-04-21 08:33 | disposition home or self-care (01) ==
LOC: ED 07:34 → PCU 12:19
PROVIDERS: Emergency Provider Emergency Medicine; Family Provider Family Medicine Geriatric Medicine; PCP Family Medicine Geriatric Medicine
DX: R42 Dizziness and giddiness (principal); I48.2 Chronic atrial fibrillation; J44.9 Chronic obstructive pulmonary disease, unspecified; I10 Essential (primary) hypertension; E66.01 Morbid (severe) obesity due to excess calories; E11.9 Type 2 diabetes mellitus without complications; E78.5 Hyperlipidemia, unspecified; G47.33 Obstructive sleep apnea (adult) (pediatric); Z68.42 Body mass index [BMI] 45.0-49.9, adult; Z71.3 Dietary counseling and surveillance; Z86.711 Personal history of pulmonary embolism; Z86.718 Personal history of other venous thrombosis and embolism; Z79.01 Long term (current) use of anticoagulants; Z79.899 Other long term (current) drug therapy; Z79.84 Long term (current) use of oral hypoglycemic drugs; Z79.51 Long term (current) use of inhaled steroids
CPT/HCPCS: 36415; 70450; 70544; 70549; 70553; 80048; 80061; 82962; 85025; 85610; 93005; 93306; 94640; 96372; 96374; 99218; 99285; A9585; Q9957; A4216; G0378; J2405

== ENCOUNTER → 2017-05-16 13:44 | Outpatient (CLI) | payer MEDICARE, OTHER, SELFPAY ==
--- NOTE | 2017-05-16 13:47 | RAD_ITS ---
STUDY: X-RAY - LUMBAR SPINE REASON FOR EXAM: Female, 61 years old. New onset pain after fall TECHNIQUE: 3 view(s) of the lumbar spine were obtained. COMPARISON: None FINDINGS: Normal lumbar lordosis. There is no substantial scoliosis. There is a normal alignment of the vertebrae. There is multilevel endplate spondylosis of the lumbar vertebrae. There is multi-level degenerative disc disease with multi-level disc space narrowing. There is no demonstrated fracture. The soft tissue structures are unremarkable. RAD/Lumbar Spine 2 or 3 Views IMPRESSION: Degenerative changes of the spine, as detailed above. Electronically Signed: Jesus Alberto Newton DO at 8:44 EDT Tel , Service support ,
== END ==
PROVIDERS: Family Provider Family Medicine Geriatric Medicine; PCP Family Medicine Geriatric Medicine; Visit Provider Anesthesiology Pain Medicine
DX: M47.816 Spondylosis without myelopathy or radiculopathy, lumbar region (principal)
CPT/HCPCS: 72100

== ENCOUNTER → 2017-07-11 15:36 | Outpatient (CLI) | payer MEDICARE, OTHER, SELFPAY ==
[2017-07-11 18:25] LABS: Amphetamine Urine VISTA NEGATIVE (<1000 ng/mL); Barbiturate Urine VISTA NEGATIVE (< 200 ng/mL); Benzodiazepine Urine VISTA NEGATIVE (< 200 ng/mL); Cocaine Urine VISTA NEGATIVE (< 300 ng/mL); Ecstacy Urine VISTA POSITIVE (< 500 ng/mL); Methadone Urine VISTA NEGATIVE (< 300 ng/mL); PCP Urine VISTA NEGATIVE (< 25 ng/mL); THC Urine VISTA NEGATIVE (< 50 ng/mL); Vista UDS pH Range 5
== END ==
PROVIDERS: Family Provider Family Medicine Geriatric Medicine; PCP Family Medicine Geriatric Medicine; Visit Provider Anesthesiology Pain Medicine
DX: F11.20 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, 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 (principal)
CPT/HCPCS: 80307

== ENCOUNTER → 2017-08-16 08:47 | Outpatient (CLI) | payer MEDICARE, OTHER, SELFPAY ==
--- NOTE | 2017-08-16 08:50 | RAD_ITS ---
STUDY: X-RAY - RIGHT SHOULDER REASON FOR EXAM: Female, 61 years old. Pain. Prior surgery. TECHNIQUE: 3 view(s) of the shoulder. COMPARISON: None. FINDINGS: There is a right total shoulder arthroplasty. The prosthetic components are intact. There is evidence of a posterior dislocation of the humeral component. No loosening from the underlying bone. Normal acromioclavicular joint. Normal acromion. The soft tissue structures are unremarkable. Normal visualized pulmonary apex. RAD/Shoulder min 2 Views IMPRESSION: Posterior dislocation of the right are filled Electronically Signed: Adria Louis DO at 17:07 EDT Tel [phone], Service support ,
== END ==
PROVIDERS: Family Provider Family Medicine Geriatric Medicine; PCP Family Medicine Geriatric Medicine; Visit Provider Orthopaedic Surgery
DX: M25.511 Pain in right shoulder (principal)
CPT/HCPCS: 73030

== ENCOUNTER 2017-09-09 17:03 | Emergency (ER) | payer MEDICARE, OTHER, SELFPAY ==
[2017-09-09 17:04] VITALS: BP 160/69; PULSE 85; RESP 16; TEMP 36.6; O2SAT 95; BMI 43.9
--- NOTE | 2017-09-09 17:28 | RAD_ITS ---
STUDY: X-RAY - LEFT KNEE REASON FOR EXAM: Female, 61 years old. Fall. Pain. TECHNIQUE: 3 view(s) of the knee. COMPARISON: May 25, 2016 FINDINGS: There is generalized osteopenia. There is a 3 component total knee arthroplasty in anatomic alignment without complications. The soft tissue structures are unremarkable. RAD/Knee 3 Views IMPRESSION: Osteopenia with 3 component total knee arthroplasty without complications. No acute pathology. Electronically Signed: Fox Ordaz MD at 18:18 EDT , Service support ,
--- NOTE | 2017-09-09 17:28 | RAD_ITS ---
STUDY: X-RAY - LEFT FEMUR REASON FOR STUDY: Female, 61 years old. Fall. Pain. TECHNIQUE: Radiological exam, femur, minimum 2 views COMPARISON: None. FINDINGS: There is generalized osteopenia. There is mild arthrosis of the left hip. There is a 3 component total knee arthroplasty without complications. Normal visualized soft tissue structure. RAD/Femur Min 2 Views IMPRESSION: Osteopenia with arthrosis of the left hip. Three component total knee arthroplasty without complications. No acute osseous abnormality. Electronically Signed: Fox Ordaz MD at 18:25 EDT , Service support ,
--- NOTE | 2017-09-09 17:28 | RAD_ITS ---
STUDY: X-RAY - PELVIS REASON FOR EXAM: Female, 61 years old. Fall with left femur pain radiating into knee. TECHNIQUE: One view of the pelvis was obtained. COMPARISON: None. FINDINGS: There is a non-specific bowel gas pattern. Normal visualized soft tissue structures. There is mild generalized osteopenia. There is mild arthrosis of both sacroiliac Normal visualized bilateral superior and inferior pubic rami. Normal pubic symphysis. Normal ischial tuberosities. Normal visualized right femoral head. Normal right acetabulum. Normal right hip joint. Normal visualized left femoral head. Normal left acetabulum. Normal left hip joint. RAD/Pelvis 1 or 2 Views IMPRESSION: Osteopenia with sacroiliac arthrosis bilaterally. No acute pathology. Electronically Signed: Fox Ordaz MD at 18:22 EDT , Service support ,
--- NOTE | 2017-09-09 17:34 | ED.DCSUM_ITS ---
- ER Visit Summary Date of Service: 09/09/17 Chief Complaint: Tripped and fell complaining of left hip and knee pain. History of Present Illness: The patient is a 61 F history of noncemented diabetes, hypertension, CHF, COPD. Chronically in pain management. Prior history of A. fib. Today tripped and fell over her brother's foot who was walking in front of her. She felt a hard floor and is now complaining of pain in her left hip and left knee. But is able to walk. She is on Coumadin due to blood clots but denies striking her head at all. She denies any headache. Physical Examination: Well-appearing older female. Vital signs are stable and afebrile. Pulse is 95% room air no signs of hypoxia. H EENT exam atraumatic nontender. C-spine nontender. Trachea midline. Lungs clear to auscultation bilaterally. Heart regular rhythm no murmur chest wall nontender. Abdomen soft nontender. She has mild p.o. pedal left hip and anterior lateral left knee but there is no gross bony deformities. She has full range of motion with flexion-extension of the left hip and knee. There is no shortening. No external rotation. No significant pain with range of motion. Left foot and ankle are nontender neurovascular intact with normal dorsalis pedis pulse dorsi and plantar flexion. Right lower and upper extremities are unremarkable. Back exam nontender. Neurologically she is awake alert without focal motor deficits. Test Results: Left hip and pelvis x-ray shows no acute fracture. 3 views. Left knee x-ray no acute fracture prosthesis. Both show osteopenia. Pelvis x- ray no acute fracture. All read both by myself and radiologist. Emergency Department Course and Treatment: Patient did not want anything for pain at this time. X-rays are being obtained. Treatment Plan: Repeat exam patient doing well at 1848 we will be discharged home. Ice to all sore areas. She is on chronic pain meds for chronic back pain. Disposition: Discharge Impression: Acute trip and fall Acute left hip contusion Acute left knee contusion This note was generated with [employer] dictation software. It may contain incorrect words, spelling, and punctuation that were not noted in review of the chart prior to signing ED Disposition - Plan for ED Patient: Chief Complaint: Lower Extremity Injury Referrals: Ruddy Corral Chi, MD [Primary Care Provider] -
[2017-09-09 18:49] VITALS: BP 150/70; PULSE 88; RESP 16; O2SAT 98
--- NOTE | 2017-09-09 18:50 | ED.DEP ---
ED Disposition - Plan for ED Patient: Disposition: Home or Assisted Living Chief Complaint: Lower Extremity Injury Instructions: ED Contusion Lower Ext Referrals: Ruddy Corral Chi, MD [Primary Care Provider] - 1 Week if not improving Additional Instructions: Ice to all sore areas. Tylenol and Motrin for pain. Or may use her home pain medication.
== END 2017-09-09 19:04 | disposition home or self-care (01) ==
PROVIDERS: Emergency Provider Emergency Medicine; Family Provider Family Medicine Geriatric Medicine; PCP Family Medicine Geriatric Medicine
DX: S70.02XA Contusion of left hip, initial encounter (principal); S80.02XA Contusion of left knee, initial encounter; W03.XXXA Other fall on same level due to collision with another person, initial encounter; Y93.9 Activity, unspecified; Y92.89 Other specified places as the place of occurrence of the external cause; Y99.9 Unspecified external cause status; I48.91 Unspecified atrial fibrillation; I10 Essential (primary) hypertension; J44.9 Chronic obstructive pulmonary disease, unspecified; E11.9 Type 2 diabetes mellitus without complications; Z79.01 Long term (current) use of anticoagulants; I50.9 Heart failure, unspecified; G89.29 Other chronic pain; M54.9 Dorsalgia, unspecified
CPT/HCPCS: 72170; 73552; 73562; 99282

== ENCOUNTER → 2017-09-20 11:51 | Outpatient (CLI) | payer MEDICARE, OTHER, SELFPAY ==
[2017-09-20 12:36] LABS: Absolute Lymphocyte Count 1.24 X10^3/ul (0.83-4.51); Absolute Neutrophil Count 2.8 X10^3/uL (2.0-7.7); Basophil# 0.01 X10^3/uL; Basophil% 0.2 % (0-1); Eosinophil# 0.11 X10^3/uL; Eosinophils% 2.3 % (0-5); Hematocrit 37.4 % (37-47); Hemoglobin 12.8 g/dl (12.0-15.0); Lymphocyte # 1.24 X10^3/ul (4.0); Lymphocyte % 25.8 % (19-41); Mean Corp Hgb Conc 34.2 g/gl (32-36); Mean Corpuscular Hgb 32.7 pg (27.0-32.0); Mean Corpuscular Volume 95.4 fL (81-99); Mean Platelet Vol. 10.4 fl (6.2-12.0); Monocyte# 0.62 X10^3/uL; Monocyte% 12.9 % (0-10); Neutrophil # 2.82 X10^3/uL (2.7-7.7); Neutrophil % 58.6 % (47-70); POSITIVE COUNT NO; POSITIVE DIFFERENTIAL NO; POSITIVE MORPHOLOGY NO; Platelet Count 157 K/mm3 (150-450); Red Blood Count 3.92 M/mm3 (4.2-5.4); White Blood Count 4.8 K/mm3 (4.4-11.0)
[2017-09-20 12:56] LABS: ALB/GLOB Ratio 0.9 RATIO (0.9-2.4); AST(SGOT) 23 U/L (15-37); Alanine Aminotransfer ALT/SGPT 33 U/L (13-56); Albumin, Serum 3.2 g/dL (3.2-5.0); Alkaline Phosphatase 109 U/L (45-117); Anion Gap 7 (5-15); BUN 12 mg/dL (7-18); BUN/Creat Ratio 15.1 RATIO (10-20); Calcium,Total 8.5 mg/dL (8.5-10.1); Chloride 108 mmol/L (98-107); Creatinine, Serum 0.79 mg/dL (0.55-1.02); EST Glomerular Filtration Rate 78 mL/min (>60); Est Glom Filt Rate - Afr Amer 94 mL/min (>60); Globulin 3.5 g/dL (2.2-4.2); Glucose 125 mg/dL (74-106); Potassium 3.6 mmol/L (3.5-5.1); Protein, Total 6.7 g/dL (6.4-8.2); Sodium Level 142 mmol/L (136-145); Thyroid Stim Hormone (TSH) 0.96 uIU/mL (0.358-3.74)
[2017-09-21 11:13] LABS: Hep C Antibodies 0.1 s/co ratio (0.0-0.9)
== END ==
PROVIDERS: Family Provider Family Medicine Geriatric Medicine; PCP Family Medicine Geriatric Medicine; Visit Provider Family Medicine Geriatric Medicine
DX: I10 Essential (primary) hypertension (principal); Z13.89 Encounter for screening for other disorder
CPT/HCPCS: 36415; 80053; 84443; 85025; 86803

== ENCOUNTER → 2017-10-30 09:23 | Outpatient (CLI) | payer MEDICARE, OTHER, SELFPAY | PROVIDERS: Family Provider Family Medicine Geriatric Medicine; PCP Family Medicine Geriatric Medicine; Visit Provider Orthopaedic Surgery | DX: M79.641 Pain in right hand (principal) | CPT/HCPCS: 73130 ==

== ENCOUNTER → 2017-12-29 07:45 | Outpatient (CLI) | payer MEDICARE, OTHER, SELFPAY ==
--- NOTE | 2017-12-29 07:48 | BI_ITS ---
MAMMOGRAPHY - BILATERAL SCREENING REASON FOR EXAM: Female, 62 years old. Routine annual screening examination. PERTINENT HISTORY: Non-contributory. TECHNIQUE: Digital bilateral breast elizabeth (3D mammographic acquisition) in the CC and MLO projections. 2-D mediolateral oblique (MLO) and craniocaudad (CC) views of both breasts were obtained. CAD: Full Field Digital Mammography with Computer Added Detection was performed. COMPARISON: Comparison is made with prior examination dated September 25 and September 15, 2013. FINDINGS: Breast Composition: There are scattered areas of fibroglandular density. There are no dominant masses or suspicious calcifications. Stable benign-appearing bilateral axillary lymph nodes. No other significant abnormalities are identified. There has been no significant change since the prior study. BI/SCREENING MAMM (CAD), BILAT IMPRESSION: Stable bilateral screening mammogram. Yearly follow-up mammogram recommended. (A) ASSESSMENT CATEGORY: BIRADS Category 2: Benign. A letter regarding these results will be sent to the patient by the facility within 30 days. Approximately 10% of breast cancers are not detected by mammography. A normal mammogram should not delay biopsy of a clinically suspicious abnormality. [id number] Electronically Signed: Tariq Kapoor MD at 9:34 EST Tel [phone], Service support ,
== END ==
PROVIDERS: Family Provider Family Medicine Geriatric Medicine; PCP Family Medicine Geriatric Medicine; Visit Provider Family Medicine Geriatric Medicine
DX: Z12.31 Encounter for screening mammogram for malignant neoplasm of breast (principal)
CPT/HCPCS: 77063; 77067

== ENCOUNTER → 2018-01-30 13:16 | Outpatient (CLI) | payer MEDICARE, OTHER, SELFPAY ==
--- NOTE | 2018-01-30 14:16 | NEURO ---
NCS and/or EMG Patient Report Ordering Doctor: Amanda Hammond DATE OF SERVICE: 01/30/18 Susana Gilliam is a 62-year-old female presents for electrodiagnostic testing of the right upper limb. She reports numbness in the right hand, primarily the first through fourth digits. Electrodiagnostic findings: Right median motor nerve demonstrates normal distal latency, amplitude and conduction velocity. Normal right ulnar motor response, including conduction across the elbow. Normal median and ulnar F-wave. Prolonged right median sensory latency is noted. Normal right ulnar and radial sensory responses. Needle EMG testing shows no evidence of denervation with normal motor unit action potentials. Letter diagnostic assessment: This is an abnormal study in the right upper limb 1. Electrodiagnostic findings demonstrate right-sided median mononeuropathy, consistent with a mild right carpal tunnel syndrome. 2. No electrodiagnostic evidence for ulnar neuropathy, including cubital tunnel syndrome. 3. No electrodiagnostic evidence for cervical radiculopathy. If there are any further questions, please not hesitate to contact me
== END ==
PROVIDERS: Family Provider Family Medicine Geriatric Medicine; PCP Family Medicine Geriatric Medicine; Referring Provider Physician Assistant; Visit Provider Physician Assistant
DX: G56.21 Lesion of ulnar nerve, right upper limb (principal)
CPT/HCPCS: 95886; 95909

== ENCOUNTER 2018-02-11 10:24 | Emergency (ER) | payer MEDICARE, OTHER, SELFPAY ==
[2018-02-11 10:25] VITALS: BP 183/63; PULSE 57; RESP 16; TEMP 36.9; O2SAT 98; BMI 38.7
--- NOTE | 2018-02-11 11:25 | CT_ITS ---
STUDY: CT ABDOMEN AND PELVIS WITHOUT CONTRAST REASON FOR EXAM: Female, 62 years old. Left flank pain, history of left kidney stone x 2 years. RADIATION DOSAGE (If Supplied By Facility): CTDIvol = ( 32.55 ) mGy, DLP = ( 1845.91 ) mGycm TECHNIQUE: Transaxial images were obtained from the dome of the diaphragm to the symphysis pubis without oral contrast, and without intravenous contrast. Sagittal and coronal images were reconstructed. Individualized dose optimization techniques were used for this CT. COMPARISON: CT abdomen and pelvis May 29, 2016. FINDINGS: The visualized lung bases are unremarkable. The heart size is normal. There are calcifications at the root of the aorta. Normal liver. The portal vein diameter is 16 mm. Normal gallbladder and extrahepatic biliary system. Normal spleen. Normal pancreas. Normal bilateral adrenal glands. There is bilateral nephrolithiasis. There is mild to moderate left pelvocaliectasis down to a 6.5 mm stone at the mid left ureter. There is congestive or inflammatory stranding in the left perinephric tissues. Normal visualized stomach. There is a 3.65 x 2.95 x 3.2 cm diverticulum projecting superiorly at the juncture of the third and fourth portions of the duodenum. Normal small intestine. There are multiple colonic diverticula consistent with diverticulosis. The appendix is visualized and appears normal. There is mild to moderate atherosclerotic calcification of the abdominal aorta, without a demonstrated aneurysm. Normal inferior vena cava. Normal retroperitoneum. Normal urinary bladder. Normal visualized uterus and adnexa. Normal abdominal wall. There are diffuse degenerative changes of the visualized thoracic spine and multilevel degenerative changes of the lumbar spine and there is a slight thoracolumbar S-shaped scoliosis. Degenerative arthrosis seen at the inferior aspect of the left sacroiliac joint. CT/Abdomen/Pelvis without Cont IMPRESSION: 1. Bilateral nephrolithiasis. Mild to moderate left hydroureteronephrosis due to 6.5 mm stone in the mid left ureter. 2. Mild increased size of duodenal diverticulum since May 2016. Sigmoid diverticulosis again noted without sign of acute diverticulitis. No signs of bowel obstruction. The appendix is normal. 3. Zlry-lv-vfzrrvwl abdominal atherosclerotic calcific plaquing. There is no demonstrated aneurysm, but this portends some risk for future cardiovascular event, Abdominal Aortic Calcific Deposits Are an Important Predictor of Vascular Morbidity and Mortality; Richard Grier, et al. Circulation, Apr 2000;[id number]. 4. Degenerative changes of the spine and left sacroiliac joint. Electronically Signed: Kyle Faulkner MD at 12:39 EST , Service support ,
--- NOTE | 2018-02-11 11:27 | ED.VISSUMM ---
- ER Visit Summary Date of Service: 02/11/18 Chief Complaint: Flank pain History of Present Illness: The patient is a 62 F history of prior kidney stones. States the last 2 years she is had intermittent pain from a kidney stone on the left. History of COPD. History of A. fib, DVT and PEs for which she is on Coumadin and umq-krxdcji-ccuydcmpb diabetes. Patient states that 6 AM this morning she started getting intermittent left flank pain. Associated nausea. No vomiting. No diarrhea. No dysuria. She did have mild diarrhea yesterday. No melena. She denies any fever. Physical Examination: Well-appearing older female. Vital signs are stable afebrile. She does not look septic or toxic. She is in no acute distress. H EENT exam unremarkable. Neck nontender. Lungs clear to auscultation bilaterally. Heart regular rhythm rate about 60. Abdomen morbidly obese but soft. Nontender. Nondistended. Normal bowel sounds. No peritoneal signs. No pulsatile mass. Patient moving all 4 extremities. They are neurovascular intact. Neurologically she is awake alert with no focal motor deficits. Back exam she has mild left CVA tenderness. There is no ecchymosis or bruising no redness or warmth. Test Results: CT flank study without contrast shows mid left ureteral 6.5 mm stone with hydroureter and hydronephrosis. There was bilateral nephrolithiasis seen. Reviewed by me and read by the radiologist. CBC normal. White count of 9. Hemoglobin 12. Chemistries normal. Gap 7. Normal creatinine. Patient is on Coumadin INR 2.0. UA negative. No signs of infection. Emergency Department Course and Treatment: Patient was treated with IV morphine and Zofran. On repeat exam she is doing better still having some pain will get a second dose of morphine 4 mg. She is comfortable being discharged home on Percocet. Will follow up with Dr. Weathers the urologist this week. I have him on page. Treatment Plan: Percocet for pain. Follow-up with urologist this week. Disposition: Discharge Impression: Acute left flank pain secondary to acute left ureteral 6.5 mm stone with hydronephrosis History of kidney stones Anticoagulated on Coumadin This note was generated with [employer] software. It may contain incorrect words, spelling, and punctuation that were not noted in review of the chart prior to signing ED Disposition - Plan for ED Patient: Chief Complaint: Flank Pain Referrals: Ruddy Corral Chi, MD [Primary Care Provider] -
[2018-02-11 11:36] LABS: Absolute Lymphocyte Count 1.63 X10^3/ul (0.83-4.51); Absolute Neutrophil Count 7.1 X10^3/uL (2.0-7.7); Basophil# 0.03 X10^3/uL; Basophil% 0.3 % (0-1); Eosinophil# 0.14 X10^3/uL; Eosinophils% 1.5 % (0-5); Hematocrit 39.3 % (37-47); Hemoglobin 12.9 g/dl (12.0-15.0); Lymphocyte # 1.63 X10^3/ul (4.0); Lymphocyte % 16.9 % (19-41); Mean Corp Hgb Conc 32.8 g/gl (32-36); Mean Corpuscular Hgb 32.1 pg (27.0-32.0); Mean Corpuscular Volume 97.8 fL (81-99); Mean Platelet Vol. 10.1 fl (6.2-12.0); Monocyte# 0.67 X10^3/uL; Neutrophil # 7.14 X10^3/uL (2.7-7.7); Neutrophil % 74.1 % (47-70); Platelet Count 173 K/mm3 (150-450); RBC Distribution Width CV 13.9 % (11.6-14.6); RBC Distribution Width SD 48.5 fl (35.1-43.9); Red Blood Count 4.02 M/mm3 (4.2-5.4); White Blood Count 9.6 K/mm3 (4.4-11.0)
[2018-02-11 11:37] LABS: POSITIVE COUNT NO; POSITIVE DIFFERENTIAL NO; POSITIVE MORPHOLOGY NO
[2018-02-11] MEDS: Morphine 4 MG/ML Syringe 6 MG IV (11:37)
[2018-02-11] MEDS: Ondansetron 4 MG/2 ML Vial IV (11:37)
[2018-02-11 11:43] LABS: Prothrombin Time (Protime)PT. 22.9 SECONDS (11.7-14.9)
[2018-02-11 11:45] LABS: Anion Gap 7 (5-15); BUN 16 mg/dL (7-18); BUN/Creat Ratio 18.2 RATIO (10-20); Calcium,Total 8.5 mg/dL (8.5-10.1); Chloride 108 mmol/L (98-107); Creatinine, Serum 0.88 mg/dL (0.55-1.02); EST Glomerular Filtration Rate 69 mL/min (>60); Est Glom Filt Rate - Afr Amer 83 mL/min (>60); Estimated Creatinine Clearance 60.46 ml/min; Glucose 144 mg/dL (74-106); Potassium 3.9 mmol/L (3.5-5.1); Sodium Level 142 mmol/L (136-145)
[2018-02-11 12:16] LABS: Color, Urine Yellow (Yellow); Glucose, Dipstick Normal (Normal); Ketone-Dipstick Negative (Negative); Leukocyte Esterase-Dipstick 25 /ul (Negative); Nitrite-Dipstick Negative (Negative); Occult Blood-Urine 10 /ul (Negative); Protein-Dipstick Negative (Negative); Specific Gravity, Urine 1.025 (1.002-1.030); Urine Bilirubin Dipstick Negative (Negative); Urine Clarity Sl. Cloudy (Clear); Urine Urobilinogen Normal (Normal)
[2018-02-11 12:23] LABS: Bacteria 1+ /hpf (None Seen); Mucous, Urine 1+ /hpf (<or=2+); Red Blood Cells-Urine 0-5 SEEN /hpf (0-5); Squamous Epithelial Cells - UA 0-5 SEEN /hpf (5-10); White Blood Cells 0-5 SEEN /hpf (0-5)
[2018-02-11 13:11] VITALS: BP 182/60; PULSE 90; RESP 18; O2SAT 99
--- NOTE | 2018-02-11 13:57 | ED.DEP ---
ED Disposition - Plan for ED Patient: Disposition: Home or Assisted Living Chief Complaint: Flank Pain Instructions: ED Stone Renal W Colic Prescriptions: Oxycodone HCl/Acetaminophen [Percocet 7.5-325 mg Tablet] 0 ea PO Q6H PRN PRN 4 Days #14 tab PRN Reason: Pain Referrals: Ruddy Corral Chi, MD [Primary Care Provider] - Additional Instructions: Call and follow-up with Dr. Weathers tomorrow. Percocet for pain.
[2018-02-11] MEDS: Morphine 4 MG/ML Syringe IV (14:06)
[2018-02-11 14:07] VITALS: BP 148/50; PULSE 85; RESP 16; O2SAT 99
--- OUTSIDE RECORDS SUMMARY | 2018-05-16 01:24 | XMS RPT_ITS ---
:1955 Author Organization OHIP Support Name Relationship Address Phone CAYETANO WISEMAN Unavailable [address] + [address] [place] [address] CURRAN, SHAD Unavailable Unavailable + [place] [address] D Unavailable Unavailable Unavailable CAYETANO WISEMAN Unavailable [address] + [address] [place] [address] CURRAN, SHAD Unavailable Unavailable + [place] [address] D Unavailable Unavailable Unavailable CAYETANO WISEMAN Unavailable [address] + [address] [place] [address] CURRAN, SHAD Unavailable Unavailable + [place] [address] D Unavailable Unavailable Unavailable CAYETANO WISEMAN Unavailable [address] + [address] [place] [address] CURRAN, SHAD Unavailable Unavailable + [place] [address] D Unavailable Unavailable Unavailable CAYETANO WISEMAN Unavailable [address] + [address] [place] [address] CURRAN, SHAD Unavailable Unavailable + D Unavailable Unavailable Unavailable CAYETANO WISEMAN Unavailable [address] + [address] [place] [address] CURRAN, SHAD Unavailable [address] + [address] [place] [address] D Unavailable Unavailable Unavailable CAYETANO WISEMAN Unavailable [address] + [address] [place] [address] CURRAN, SHAD Unavailable [address] + [address] [place] [address] D Unavailable Unavailable Unavailable CAYETANO WISEMAN Unavailable [address] + [address] [place] [address] CURRAN, SHAD Unavailable [address] + [address] [place] [address] D Unavailable Unavailable Unavailable CAYETANO WISEMAN Unavailable [address] + [address] [place] [address] CURRAN, SHAD Unavailable [address] + [address] [place] [address] D Unavailable Unavailable Unavailable CAYETANO WISEMAN Unavailable [address] + [address] [place] [address] CURRAN, SHAD Unavailable [address] + [address] [place] [address] D Unavailable Unavailable Unavailable CAYETANO WISEMAN Unavailable [address] + [address] [place] [address] CURRAN, SHAD Unavailable [address] + [address] [place] [address] D Unavailable Unavailable Unavailable CAYETANO WISEMAN Unavailable [address] + [address] [place] [address] CURRAN, SHAD Unavailable [address] + [address] [place] [address] D Unavailable Unavailable Unavailable CAYETANO WISEMAN Unavailable [address] + [address] [place] [address] CURRAN, SHAD Unavailable [address] + [address] [place] [address] D Unavailable Unavailable Unavailable CAYETANO WISEMAN Unavailable [address] + [address] [place] [address] CURRAN, SHAD Unavailable [address] + [address] [place] [address] D Unavailable Unavailable Unavailable CAYETANO WISEMAN Unavailable [address] + [address] [place] [address] CURRAN, SHAD Unavailable [address] + [address] [place] [address] D Unavailable Unavailable Unavailable CAYETANO WISEMAN Unavailable [address] + [address] [place] [address] LUCAS LIUE Unavailable [address] + [address] [place] [address] D Unavailable Unavailable Unavailable CAYETANO WISEMAN Unavailable [address] + [address] [place] [address] ZARINA LIUARIE Unavailable [address] + [address] [place] [address] D Unavailable Unavailable Unavailable CAYETANO WISEMAN Unavailable [address] + [address] [place] [address] ZARINA LIUARIE Unavailable [address] + [address] [place] [address] D Unavailable Unavailable Unavailable Care Team Providers Name Role Phone Ellis, Ruddy Chi Primary Care Unavailable Fabián Rodas Attending Unavailable JasielTrue Attending Unavailable Ellis, Ruddy Chi Primary Care Unavailable True Weathers Referring Unavailable Ellis, Ruddy Chi Primary Care Unavailable Jopperi, Ubaldo Admitting Unavailable Jopperi, Ubaldo Attending Unavailable Jopperi, Ubaldo Admitting Unavailable Jopperi, Ubaldo Attending Unavailable Ellis, Ruddy Chi Primary Care Unavailable Jopperi, Ubaldo Consulting Unavailable Jopperi, Ubaldo Admitting Unavailable Jopperi, Bualdo Attending Unavailable Ellis, Ruddy Chi Primary Care Unavailable Jopperi, Ubaldo Consulting Unavailable True Weathers Attending Unavailable JasielTrue Referring Unavailable Lelis, Ruddy Chi Primary Care Unavailable Montserrat Elias Attending Unavailable Ellis, Ruddy Chi Primary Care Unavailable Tulio Licea Attending Unavailable Ellis, Ruddy Chi Referring Unavailable Jopperi, Ubaldo Attending Unavailable BasaliMontserrat Attending Unavailable Basali Ayman Referring Unavailable Ellis, Ruddy Chi Primary Care Unavailable Jesse Lemus Attending Unavailable Ellis, Ruddy Chi Referring Unavailable Ellis, Ruddy Chi Primary Care Unavailable Jesse Lemus Attending Unavailable Jesse Lemus Referring Unavailable Ellis, Ruddy Chi Primary Care Unavailable Ellis, Ruddy Chi Primary Care Unavailable Fabián Rodas Attending Unavailable Ellis, Ruddy Chi Attending Unavailable Ellis, Ruddy Chi Primary Care Unavailable Amanda Hammond Attending Unavailable Ellis, Ruddy Chi Referring Unavailable Ellis, Ruddy Chi Primary Care Unavailable Amanda Hammond Attending Unavailable Amanda Hammond Referring Unavailable Ellis, Ruddy Chi Primary Care Unavailable Ellis, Ruddy Chi Attending Unavailable Ellis, Ruddy Chi Primary Care Unavailable Lucien Hazel Attending Unavailable Lucien Hazel Referring Unavailable Ellis, Ruddy Chi Primary Care Unavailable PROBLEMS PROBLEMS DATE TYPE CONDITION / CODE ATTENDING STATUS SOURCE 02/11/2018 Unknown N20.0 - Calculus of Fabián Rodas Active [facility] N20.0(ICD-10) Hospital Repository 02/06/2018 Unknown Z12.31 - Encounter Ellis, Ruddy Chi Active [place] for screening [facility] mammogram for Hospital malignant neoplasm Repository of breast / Z12.31(ICD-10) 10/30/2017 Unknown M79.641 - Pain in Manish Active [facility] right hand / [facility] M79.641(ICD-10) Hospital Repository 10/30/2017 Unknown 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, right [facility] upper limb / Hospital G56.21(ICD-10) Repository 08/16/2017 Unknown M25.511 - Pain in Jesse Lemus Active [facility] right shoulder / [facility] M25.511(ICD-10) Hospital Repository 07/11/2017 Unknown F11.20 - Opioid BasalMontserrat nunez Active [place] dependence, Community 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 / Hospital F11.20(ICD-10) Repository 05/17/2017 Unknown I48.2 - Chronic JoppUbaldo mosqueda Active [place] atrial fibrillation [facility] / I48.2(ICD-10) Hospital Repository PROCEDURES PROCEDURES No Procedure Records FoundRESULTS RESULTS BEDSIDE GLUCOSE Collected: 02/13/2018 Status: F Source: [place] 3:27 PM [facility] REPOSITORY TYPE CODE TESTS RESULT OUT OF REFERENCE UNITS RANGE LAB L501.080 70-110 mg/dL High BEDSIDE GLU 126 Result Comment: MANAGEMENT OF PATIENT CARE PER NURSING PROTOCOL Performed By: #### L501.080 #### [facility] Laboratory Point of Care [address] [place] [address] OPERATIVE REPORT Observed: 02/13/2018 Status: F Source: [place] 3:03 PM [facility] REPOSITORY [facility] Medical Records Department [address] [place] [address] Operative Report 02/13/18 1501 MR#: [id number] Acct: [id number] Name: SUSANA WISEMAN Rep #: [id number] : 1955 62 From: True Weathers MD PCP: Ruddy Corral MD, Chi Status: REG [facility] Location: [place] [address] Report of Operation Date of Procedure: 02/13/18 Pre-Operative Diagnosis: Left ureteral calculi Post-Operative Diagnosis: Same Surgery/Procedure Performed:: Cystoscopy, balloon dilation of the left ureter, left ureteroscopy laser lithotripsy of stone, Description of Surgical Findings:: 62-year-old female has obstructing stone in the mid left ureter presented today to the hospital for outpatient ureteroscopy surgery and laser lithotripsy. 62-year-old female taken back to the operating room after smooth induction of general anesthesia she was placed in dorsolithotomy position, went into the bladder with a 21 Arabic rigid cystoscopy urethroscope the pablo cystoscopy 3070 degree lens main finding was a cystocele she also has a rectocele no tumors or stones within the bladder I then identified the left ureteral orifice cannulated with a wire and advanced the balloon dilator balloon dilated the distal left ureter ureteral orifice, I then went in with a SlimLine rigid ureteroscope went up the ureter and then encountered the stone in the mid ureter I used a 200 m laser fiber laser the stone little tiny pieces once the stone was lasered on the tiny pieces that should pass on their own I worked my way down the ureter by the fragments passes working way down the ureter to leave a stent in drain the bladder patient's anesthetic was reversed and she is taken back to PACU good condition. Plan to see her back for checkup and then will plan for shockwave lithotripsy of the remaining stones in the kidneys when she is off her Coumadin. Type of Anesthesia:: General Drains: none - Admit VTE Documentation VTE Present on Admission: No VTE Mechan Device Prophylaxis: SCD's 02/13/18 1502 <Electronically signed by True Weathers MD> Date True Weathers MD CC: True Weathers MD; Ruddy Corral MD Signed DISCHARGE INSTRUCTION Observed: 02/13/2018 Status: F Source: [place] 2:59 PM [facility] REPOSITORY [facility] Medical Records Department [address] [place] [address] Instructions for Home/Discharge Instructions 02/13/18 1459 MR#: [id number] Acct: [id number] Name: SUSANA WISEMAN Rep #: [id number] : 1955 62 From: True Weathers MD PCP: Ruddy Corral MD, Chi Status: REG SDC Discharge Diet: Light diet - advance as tolerated Discharge Activity: Return to Normal Activity Call your doctor if your incision/area has: Sudden Increased Bleeding Call your doctor if you observe: Fever of 101 or Higher Allergies/Adverse Reactions: Allergies flecainide [Flecainide] Allergy (Verified 02/13/18 08:12) Rash Medications to take at Discharge Albuterol Inhaler [Ventolin Hfa] 2 puff INHALATION Q4H PRN PRN 04/20/17 Atorvastatin Calcium [Lipitor] 40 mg PO QHS 04/20/17 Budesonide/Formoterol 160/4.5 [Symbicort 160/4.5 Mcg Inhaler (SP)] 2 puff INHALATION BID 04/20/17 Calcium Carbonate [Calcium] 2 tab PO DAILY 04/20/17 Celecoxib [Celebrex] 200 mg PO DAILY 04/20/17 Metformin HCl [Glucophage] 1,000 mg PO BIDCM 04/20/17 Pramipexole Di-HCl [Mirapex] 0.5 mg PO BID 04/20/17 Vit A/Vit C/Vit E/Zinc/Copper [Preservision Areds Softgel] 1 ea PO DAILY 04/20/17 Vortioxetine Hydrobromide [Trintellix] 20 mg PO DAILY 04/20/17 warfarin 10 mg tablet 4 mg PO DAILY 05/16/17 Olmesartan/Hydrochlorothiazide [Benicar Hct 40-12.5 MG Tab] 1 tab PO DAILY 02/11/18 Solifenacin Succinate [Vesicare] 5 mg PO DAILY 02/11/18 traZODone [Desyrel] 50 mg PO QHS 02/11/18 Acetaminophen [Tylenol Extra Strength] 500 mg PO Q4H PRN PRN #20 tablet 02/13/18 Ibuprofen 600 mg PO Q6H PRN PRN #20 tablet 02/13/18 Oxycodone HCl/Acetaminophen [Percocet 7.5-325 mg Tablet] 1 each PO Q6H PRN PRN 02/13/18 The following prescriptions were given: Acetaminophen [Tylenol Extra Strength] 500 mg PO Q4H PRN PRN #20 tablet PRN Reason: Pain Ibuprofen 600 mg PO Q6H PRN PRN #20 tablet PRN Reason: Pain Primary Care Physician: Ruddy Corral Chi, MD [Primary Care Provider] - Test Results: Test results from this visit will be discussed in further detail at your follow-up appointment, if applicable. Please Follow Up With: True Weathers MD When: in 2 weeks, please call to make an appointment. 02/13/18 1459 <Electronically signed by True Weathers MD> Date True Weathers MD CC: Ruddy Corral MD BEDSIDE GLUCOSE Collected: 02/13/2018 Status: F Source: [place] 12:33 PM [facility] REPOSITORY TYPE CODE TESTS RESULT OUT OF REFERENCE UNITS RANGE LAB L501.080 70-110 mg/dL High BEDSIDE GLU 128 Result Comment: MANAGEMENT OF PATIENT CARE PER NURSING PROTOCOL Performed By: #### L501.080 #### [facility] Laboratory Point of Care [address] [address] PROTIME W/INR Collected: 02/13/2018 Status: F Source: [place] 12:03 PM [facility] REPOSITORY TYPE CODE TESTS RESULT OUT OF REFERENCE UNITS RANGE LAB L9200.1001 11.9-14.4 SEC High PROTIME ISTAT 22.9 Result Comment: Reference Range 11.9 - 14.4 LAB L9200.2000 Normal INR ISTAT 2.00 Result Comment: Critical Value > 3.5 Performed By: #### L9200.0000 #### [facility] Laboratory Point of Care [address] [place] [address] ABDOMEN SINGLE VIEW Observed: 02/12/2018 Status: F Source: [place] 12:40 PM [facility] REPOSITORY [facility] Imaging Services [address] [place] [address] Abdomen Single View MR#: [id number] Acct: [id number] Name: SUSANA WISEMAN Rep #: [id number] : 1955 F 62 From: Jesus Alberto Newton DO PCP: Ruddy Corral MD, Chi Status: REG CLI Study: Abdomen Single View Date of Exam: 02/12/18 Exam# [id number] Ordering Dr: True Weathers MD STUDY: X-RAY - ABDOMEN/PELVIS REASON FOR EXAM: Female, 62 years old. Left-sided kidney stone TECHNIQUE: Two AP supine views of the abdomen and pelvis. COMPARISON: 09/09/2017 FINDINGS: There is a moderate amount of colonic fecal material. There is no demonstrated free abdominal air. Again noted is left lower pole renal stone measuring 9.5 mm. Normal soft tissue structures. There are diffuse degenerative changes of the visualized lumbar spine. RAD/Abdomen Single View IMPRESSION: No evidence of obstruction. Stable left lower pole nephrolith Electronically Signed: Jesus Alberto Newton DO at 13:40 EST Tel , Service support , CC: True Weathers MD; Ruddy Corral MD Privacy Director: Signed DISCHARGE INSTRUCTION Observed: 02/11/2018 Status: F Source: [place] 4:29 PM [facility] REPOSITORY [facility] Medical Records Department [address] [place] [address] Discharge Instruction 02/11/18 1357 MR#: [id number] Acct: [id number] Name: SUSANA WISEMAN Rep #: [id number] : 1955 62 From: Fabián Rodas MD PCP: Ruddy Corral MD, Chi Status: DEP ER ED Disposition - Plan for ED Patient: Disposition: Home or Assisted Living Chief Complaint: Flank Pain Instructions: ED Stone Renal W Colic Prescriptions: Oxycodone HCl/Acetaminophen [Percocet 7.5-325 mg Tablet] 0 ea PO Q6H PRN PRN 4 Days #14 tab PRN Reason: Pain Referrals: Ruddy Corral Chi, MD [Primary Care Provider] - Additional Instructions: Call and follow-up with Dr. Weathers tomorrow. Percocet for pain. What to do if you have Problems For any increased pain, shortness of breath, bleeding, nausea or vomiting, chest pain, or any unexpected problems, contact your Primary Care Provider. Call [facility] ([phone]) or report to the closest Emergency Room. Call 911 if necessary. 02/11/18 1628 <Electronically signed by Fabián Rodas MD> Date Fabián Rodas MD Cosigner Signature (If Indicated): Date CC: Ruddy Corral MD EMERGENCY DEPARTMENT Observed: 02/11/2018 Status: F Source: [place] SUMMARY 4:29 PM [facility] Medical Records Department [address] [place] [address] Emergency Department Summary 02/11/18 1127 MR#: [id number] Acct: [id number] Name: SUSANA WISEMAN Rep #: [id number] : 1955 62 From: Fabián Rodas MD PCP: Ruddy Corral MD, Chi Status: DEP ER - ER Visit Summary Date of Service: 02/11/18 Chief Complaint: Flank pain History of Present Illness: The patient is a 62 F history of prior kidney stones. States the last 2 years she is had intermittent pain from a kidney stone on the left. History of COPD. History of A. fib, DVT and PEs for which she is on Coumadin and cnt-hgmsdsa-bjsfnrqzc diabetes. Patient states that 6 AM this morning she started getting intermittent left flank pain. Associated nausea. No vomiting. No diarrhea. No dysuria. She did have mild diarrhea yesterday. No melena. She denies any fever. Physical Examination: Well-appearing older female. Vital signs are stable afebrile. She does not look septic or toxic. She is in no acute distress. H EENT exam unremarkable. Neck nontender. Lungs clear to auscultation bilaterally. Heart regular rhythm rate about 60. Abdomen morbidly obese but soft. Nontender. Nondistended. Normal bowel sounds. No peritoneal signs. No pulsatile mass. Patient moving all 4 extremities. They are neurovascular intact. Neurologically she is awake alert with no focal motor deficits. Back exam she has mild left CVA tenderness. There is no ecchymosis or bruising no redness or warmth. Test Results: CT flank study without contrast shows mid left ureteral 6.5 mm stone with hydroureter and hydronephrosis. There was bilateral nephrolithiasis seen. Reviewed by me and read by the radiologist. CBC normal. White count of 9. Hemoglobin 12. Chemistries normal. Gap 7. Normal creatinine. Patient is on Coumadin INR 2.0. UA negative. No signs of infection. Emergency Department Course and Treatment: Patient was treated with IV morphine and Zofran. On repeat exam she is doing better still having some pain will get a second dose of morphine 4 mg. She is comfortable being discharged home on Percocet. Will follow up with Dr. Weathers the urologist this week. I have him on page. Treatment Plan: Percocet for pain. Follow-up with urologist this week. Disposition: Discharge Impression: Acute left flank pain secondary to acute left ureteral 6.5 mm stone with hydronephrosis History of kidney stones Anticoagulated on Coumadin This note was generated with [employer] dictation software. It may contain incorrect words, spelling, and punctuation that were not noted in review of the chart prior to signing ED Disposition - Plan for ED Patient: Chief Complaint: Flank Pain Referrals: Ruddy Corral Chi, MD [Primary Care Provider] - What to do if you have Problems For any increased pain, shortness of breath, bleeding, nausea or vomiting, chest pain, or any unexpected problems, contact your Primary Care Provider. Call [facility] ([phone]) or report to the closest Emergency Room. Call 911 if necessary. 02/11/18 4943 <Electronically signed by Fabián Rodas MD> Date Fabián Rodas MD Cosigner Signature (If Indicated): Date CC: Ruddy Corral MD URINALYSIS, COMPLETE Collected: 02/11/2018 Status: F Source: [place] 12:00 PM [facility] REPOSITORY Order Comment: How was Urine Obtained? CLEAN CATCH TYPE CODE TESTS RESULT OUT OF RANGE REFERENCE UNITS LAB L400.3000 Yellow COLOR Normal Yellow LAB L400.3050 Clear Normal CLARITY Sl. Cloudy LAB L400.3200 Normal mg/dl Normal GLUCOSE, UR Normal LAB L400.3300 Negative mg/dL Normal BILIRUBIN URINE Negative LAB L400.3400 Negative mg/dl Normal KETONE UR Negative LAB L400.3465 1.002-1.030 Normal SP.GR. DIPSTX 1.025 LAB L400.3550 5.0 - 8.0 pH UR Normal 6.0 LAB L400.3600 Negative mg/dl PROT Normal DIPSTX Negative LAB L400.3700 Normal mg/dl Normal UROBILI Normal LAB L400.3750 Negative Normal NITRITE UR Negative LAB L400.3780 Negative /ul High 10 OCCULT BLOOD-UR LAB L400.3800 Negative /ul High LEUK 25 ESTERASE LAB L400.4050 0-5 /hpf WBC Normal 0-5 SEEN LAB L400.4100 0-5 /hpf Normal RBC-UA 0-5 SEEN LAB L400.4150 5-10 /hpf SQUAM Normal EPI 0-5 SEEN LAB L400.4300 None Seen /hpf 1+ Normal BACTERIA LAB L400.4350 <or=2+ /hpf 1+ Normal MUCUS, URINE Performed By: #### L400.0001 #### [facility] [address] [place], [address] ABDOMEN/PELVIS WITHOUT Observed: 02/11/2018 Status: F Source: [place] CONT 11:27 AM [facility] REPOSITORY [facility] Imaging Services [address] [place] [address] Abdomen/Pelvis without Cont MR#: [id number] Acct: [id number] Name: SUSANA WISEMAN Rep #: [id number] : 1955 F 62 From: Kevan Faulkner MD PCP: Ellis KRUEGER,Ruddy Mclain Status: REG ER Study: Abdomen/Pelvis without Cont Date of Exam: 02/11/18 Exam# [id number] Ordering Dr: Fabián Rodas MD STUDY: CT ABDOMEN AND PELVIS WITHOUT CONTRAST REASON FOR EXAM: Female, 62 years old. Left flank pain, history of left kidney stone x 2 years. RADIATION DOSAGE (If Supplied By Facility): CTDIvol = ( 32.55 ) mGy, DLP = ( 1845.91 ) mGycm TECHNIQUE: Transaxial images were obtained from the dome of the diaphragm to the symphysis pubis without oral contrast, and without intravenous contrast. Sagittal and coronal images were reconstructed. Individualized dose optimization techniques were used for this CT. COMPARISON: CT abdomen and pelvis May 29, 2016. FINDINGS: The visualized lung bases are unremarkable. The heart size is normal. There are calcifications at the root of the aorta. Normal liver. The portal vein diameter is 16 mm. Normal gallbladder and extrahepatic biliary system. Normal spleen. Normal pancreas. Normal bilateral adrenal glands. There is bilateral nephrolithiasis. There is mild to moderate left pelvocaliectasis down to a 6.5 mm stone at the mid left ureter. There is congestive or inflammatory stranding in the left perinephric tissues. Normal visualized stomach. There is a 3.65 x 2.95 x 3.2 cm diverticulum projecting superiorly at the juncture of the third and fourth portions of the duodenum. Normal small intestine. There are multiple colonic diverticula consistent with diverticulosis. The appendix is visualized and appears normal. There is mild to moderate atherosclerotic calcification of the abdominal aorta, without a demonstrated aneurysm. Normal inferior vena cava. Normal retroperitoneum. Normal urinary bladder. Normal visualized uterus and adnexa. Normal abdominal wall. There are diffuse degenerative changes of the visualized thoracic spine and multilevel degenerative changes of the lumbar spine and there is a slight thoracolumbar S-shaped scoliosis. Degenerative arthrosis seen at the inferior aspect of the left sacroiliac joint. CT/Abdomen/Pelvis without Cont IMPRESSION: 1. Bilateral nephrolithiasis. Mild to moderate left hydroureteronephrosis due to 6.5 mm stone in the mid left ureter. 2. Mild increased size of duodenal diverticulum since May 2016. Sigmoid diverticulosis again noted without sign of acute diverticulitis. No signs of bowel obstruction. The appendix is normal. 3. Jtbb-xg-sreskxcd abdominal atherosclerotic calcific plaquing. There is no demonstrated aneurysm, but this portends some risk for future cardiovascular event, Abdominal Aortic Calcific Deposits Are an Important Predictor of Vascular Morbidity and Mortality; Richard Grier et al. Circulation, Apr 2000;103:5216-3425. 4. Degenerative changes of the spine and left sacroiliac joint. Electronically Signed: Kyle Faulkner MD at 12:39 EST , Service support , CC: Fabián Rodas MD; Ruddy Corral MD Privacy Director: Signed CBC W/DIFF, AUTOMATED Collected: 02/11/2018 Status: F Source: [place] 10:40 AM [facility] REPOSITORY TYPE CODE TESTS RESULT OUT OF RANGE REFERENCE UNITS LAB L100.1000 4.4-11.0 K/mm3 Normal WBC 9.6 LAB L100.1200 4.2-5.4 M/mm3 Low RBC 4.02 LAB L100.1300 12.0-15.0 g/dl Normal HGB 12.9 LAB L100.1400 37-47 % Normal HCT 39.3 LAB L100.1500 81-99 fL Normal MCV 97.8 LAB L100.1600 27.0-32.0 pg High MCH 32.1 LAB L100.1700 32-36 g/gl Normal MCHC 32.8 LAB L100.1810 11.6-14.6 % Normal RDW CV 13.9 LAB L100.1820 35.1-43.9 fl High RDW SD 48.5 LAB L100.1900 150-450 K/mm3 Normal PLT 173 LAB L100.2000 6.2-12.0 fl Normal MPV 10.1 LAB L100.2100 47-70 % High NEUT% 74.1 LAB L100.2200 19-41 % Low LY% 16.9 LAB L100.2300 0-10 % Normal MONO% 7.0 LAB L100.2400 0-5 % Normal EO% 1.5 LAB L100.2500 0-1 % Normal BASO% 0.3 LAB L100.2550 0.0-0.9 % Normal IM GRAN % 0.200 Result Comment: IG% - Immature Granulocytes (promyelocytes, myelocytes and metamyelocytes) > 1% indicates that a LEFT SHIFT is Present. LAB L100.2620 2.0-7.7 X10 3/uL Normal Absolute Neut 7.1 LAB L100.2720 0.83-4.51 X10 3/ul Normal Absolute Lymph 1.63 Performed By: #### L100.0100 #### [facility] [address] [place], [address] BASIC METABOLIC Collected: 02/11/2018 Status: F Source: [place] PROFILE (BMP) 10:40 AM [facility] REPOSITORY TYPE CODE TESTS RESULT OUT OF RANGE REFERENCE UNITS LAB L501.0100 74-106 mg/dL High GLU 144 Result Comment: Fasting Glucose result greater than or equal to 126 mg/dL suggests DIABETES MELLITUS per A.D.A. criteria. Please note revised GLUCOSE reference range effective 2017. LAB L501.1000 7-18 mg/dL Normal BUN 16 LAB L501.1100 0.55-1.02 mg/dL Normal CREAT,SERUM 0.88 Result Comment: The validity of the calculated GFR AND GFRAA in patients over 70 years has not been determined. Clinical correlation is essential. LAB L501.1110 >60 mL/min Normal EST GFR 69 Result Comment: Non- GFR Calc LAB L501.1115 >60 mL/min Normal EST GFR - AA 83 Result Comment: GFR Calc LAB L501.1255 ml/min Normal Estimated CRCL 60.46 LAB L501.1300 10-20 RATIO Normal BUN/CRE 18.2 LAB L501.2200 8.5-10 mg/dL Normal .1 CA 8.5 LAB L501.5300 136-14 mmol/L Normal 5 NA 142 LAB L501.5600 3.5-5. mmol/L Normal 1 K 3.9 Result Comment: Slight Hemolysis, Result may be falsely increased. LAB L501.5900 98-107 mmol/L High CL 108 LAB L501.6100 21.0-32.0 mmol/L Normal CO2 27.0 LAB L501.6200 5-15 Normal 7 GAP Performed By: #### L500.2500 #### [facility] [address] [place], [address] PROTHROMBIN TIME W/INR Collected: 02/11/2018 Status: F Source: DERRY 10:40 AM [facility] REPOSITORY TYPE CODE TESTS RESULT OUT OF RANGE REFERENCE UNITS LAB L300.4150 11.7-14.9 SECONDS High PROTIME 22.9 LAB L300.4200 Normal INR 2.0 Performed By: #### L300.3900 #### [facility] [address] [place], [address] NCS AND/OR EMG Observed: 01/30/2018 Status: F Source: DERRY PATIENT 3:18 PM [facility] REPOSITORY [facility] Pulmonary Services/Neurology [address] [place] [address] MR#: [id number] Acct: [id number] Name: SUSANA WISEMAN Rep #: [id number] : 1955 62 From: Jatin Espinoza MD Referring Dr: MERRITT Roman Status: REG CLI Ordering Dr: Date: Location: N Sex: F C NCS and/or EMG Patient Report Ordering Doctor: Amanda Hammond DATE OF SERVICE: 01/30/18 Susana Wiseman is a 62-year-old female presents for electrodiagnostic testing of the right upper limb. She reports numbness in the right hand, primarily the first through fourth digits. Electrodiagnostic findings: Right median motor nerve demonstrates normal distal latency, amplitude and conduction velocity. Normal right ulnar motor response, including conduction across the elbow. Normal median and ulnar F-wave. Prolonged right median sensory latency is noted. Normal right ulnar and radial sensory responses. Needle EMG testing shows no evidence of denervation with normal motor unit action potentials. Letter diagnostic assessment: This is an abnormal study in the right upper limb 1. Electrodiagnostic findings demonstrate right-sided median mononeuropathy, consistent with a mild right carpal tunnel syndrome. 2. No electrodiagnostic evidence for ulnar neuropathy, including cubital tunnel syndrome. 3. No electrodiagnostic evidence for cervical radiculopathy. If there are any further questions, please not hesitate to contact me 01/30/18 1518 <Electronically signed by Jatin Espinoza MD> Date Jatin Espinoza MD CC: MERRITT Hazel; Jatin Espinoza; Ruddy Corral MD Date Dictated: 01/30/181415 Date Transcribed: 01/30/181415 Privacy Director: AA Signed SCREENING MAMM (CAD), Observed: 12/29/2017 Status: F Source: [facility] 7:48 AM [facility] REPOSITORY [facility] Imaging Services [address] [place] [address] SCREENING MAMM (CAD), BILAT MR#: [id number] Acct: [id number] Name: SUSANA WISEMAN Rep #: [id number] : 1955 F 62 From: Tariq Kapoor MD PCP: Ruddy Corral MD, Chi Status: REG CLI Study: SCREENING MAMM (CAD), BILAT Date of Exam: 12/29/17 Exam# [id number] Ordering Dr: Ruddy Corral MD MAMMOGRAPHY - BILATERAL SCREENING REASON FOR EXAM: Female, 62 years old. Routine annual screening examination. PERTINENT HISTORY: Non-contributory. TECHNIQUE: Digital bilateral breast elizabeth (3D mammographic acquisition) in the CC and MLO projections. 2-D mediolateral oblique (MLO) and craniocaudad (CC) views of both breasts were obtained. CAD: Full Field Digital Mammography with Computer Added Detection was performed. COMPARISON: Comparison is made with prior examination dated September 25 and September 15, 2013. FINDINGS: Breast Composition: There are scattered areas of fibroglandular density. There are no dominant masses or suspicious calcifications. Stable benign-appearing bilateral axillary lymph nodes. No other significant abnormalities are identified. There has been no significant change since the prior study. BI/SCREENING MAMM (CAD), BILAT IMPRESSION: Stable bilateral screening mammogram. Yearly follow-up mammogram recommended. (A) ASSESSMENT CATEGORY: BIRADS Category 2: Benign. A letter regarding these results will be sent to the patient by the facility within 30 days. Approximately 10% of breast cancers are not detected by mammography. A normal mammogram should not delay biopsy of a clinically suspicious abnormality. [id number] Electronically Signed: Tariq Kapoor MD at 9:34 EST Tel [phone], Service support , CC: Ruddy Corral MD Privacy Director: Signed ORTHOPEDIC VISIT Observed: 10/30/2017 Status: F Source: RIYA REPORT 10:31 AM [facility] REPOSITORY [facility] Orthopaedics AND Sports Medicine [address] [place] [address] OFFICE VISIT Date of Service: 10/30/17 MR#: [id number] Acct: [id number] Name: WISEMANJALEN CALDERAFaye De Leon Rep #: [id number] : 1955 Provider: Amanda Hammond DO Age/Sex: 61/F Location: [facility] Status: Signed Intake Intake Visit Reasons: right hand Is patient in pain?: No Allergies flecainide [Flecainide] Allergy (Verified 10/30/17 09:10) Rash Medications Albuterol Inhaler [Ventolin Hfa] 2 puff INHALATION Q4H PRN PRN 04/20/17 [History Confirmed 09/09/17] Atorvastatin Calcium [Lipitor] 40 mg PO QHS 04/20/17 [History Confirmed 09/09/17] Budesonide/Formoterol 160/4.5 [Symbicort 160/4.5 Mcg Inhaler (SP)] 2 puff INHALATION BID 04/20/17 [History Confirmed 09/09/17] Calcium Carbonate [Calcium] 2 tab PO DAILY 04/20/17 [History Confirmed 09/09/17] Celecoxib [Celebrex] 200 mg PO DAILY 04/20/17 [History Confirmed 09/09/17] Ergocalciferol [Vitamin D] 50,000 unit PO QMONTH 04/20/17 [History Confirmed 09/09/17] Metformin HCl [Glucophage] 1,000 mg PO BIDCM 04/20/17 [History Confirmed 09/09/17] Multivitamins,Therapeutic [Multivitamin] 1 tab PO DAILY 04/20/17 [History Confirmed 09/09/17] Olmesartan/Hydrochlorothiazide [Benicar Hct 40-12.5 MG Tab] 1 tab PO DAILY 04/20/17 [History Confirmed 09/09/17] Pramipexole Di-HCl [Mirapex] 0.5 mg PO BID 04/20/17 [History Confirmed 09/09/17] Solifenacin Succinate [Vesicare] 5 mg PO DAILY 04/20/17 [History Confirmed 09/09/17] Vit A/Vit C/Vit E/Zinc/Copper [Preservision Areds Softgel] 1 ea PO DAILY 04/20/17 [History Confirmed 09/09/17] Vortioxetine Hydrobromide [Trintellix] 20 mg PO DAILY 04/20/17 [History Confirmed 09/09/17] Meclizine HCl 25 mg PO TID PRN #15 tab.chew 04/21/17 [Rx Confirmed 09/09/17] duloxetine 30 mg capsule,delayed release 30 mg PO BID 05/16/17 [History Confirmed 09/09/17] oxycodone-acetaminophen 5 mg-325 mg tablet 1 tab PO .COMPLEX PRN tab 05/16/17 [History Confirmed 09/09/17] pregabalin 75 mg capsule 75 mg PO BID 05/16/17 [History Confirmed 09/09/17] warfarin 10 mg tablet 11 mg PO .COMPLEX 05/16/17 [History Confirmed 09/09/17] [facility] Medical History Hyperlipidemia (Chronic) Atrial fibrillation (Chronic) Benign essential hypertension (Chronic) Morbid obesity (Chronic) Obstructive sleep apnea (Chronic) Hx of pulmonary embolus (Chronic) Surgical History Status post radiofrequency ablation operation for arrhythmia (Chronic) History of repair of left rotator cuff (Chronic) History of repair of right rotator cuff (Chronic) 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 She denies any pain. She notes she has had the numbness for about 6 months. Patient has numbness of her palm and all five fingers. Patient denies any weakness or dropping items. Her numbness increases while playing on her phone with her hand flexed. She also has numbness while sewing. Patient denies any injections, bracing or xrays. Patient denies an EMG. ROS Const Reports system reviewed and no additional complaints, except as docu Eyes Reports system reviewed and no additional complaints, except as docu ENT Reports system reviewed and no additional complaints, except as docu Card Reports system reviewed and no additional complaints, except as docu Resp Reports system reviewed and no additional complaints, except as docu GI Reports system reviewed and no additional complaints, except as docu Reports system reviewed and no additional complaints, except as docu Musc Reports numbness Skin/Breast Reports system reviewed and no additional complaints, except as docu Neuro Yes system reviewed and no additional complaints, except as docu, Yes numbness Psych Reports system reviewed and no additional complaints, except as docu Endo Reports system reviewed and no additional complaints, except as docu Ortho Exam Right Wrist/Hand Skin/Wound: Yes CDI Contralateral Normal: Yes A1 ray trigger: No Right Wrist: Yes ROM-Extension 0-60, ROM-Supination 0-90, ROM-Flexion 0-80 and ROM-Pronation 0-80; no Durken's Test WRIST: ulnar nerve subluxation Assessment AND Plan 1. Neuritis of right ulnar nerve G56.21 Plan X-rays were reviewed. There is no obvious fracture, dislocation, or lucency noted. Educated on the anatomy of the hand and etiology of her pain. She has symptoms of ulnar neuritis with some first dorsal interosseous atrophy her treatment options are do nothing, injections, B complex supplement or splints, instructed today to work on better ergonomics with her embroidery and crocheting. We will order an EMG today, she has good strength today however. She can try a night otc splint with a towel as well. She has a palpable small subcu movable cyst on the anterior of the left knee, instructed to monitor for size change. If it gets bigger or bothersome return to discuss aspiration. Follow up after EMG or sooner if pain, swelling, numbness or associated symptoms, or concerns develop. All questions answered. Patient in agreement of plan. Orders Orders: Plan Detail Other Orders Orders: Coding Level of Care Code Off vis,est,level 4 Diagnoses Neuritis of right ulnar nerve G56.21 10/30/17 1031 <Electronically signed by Amanda Hammond DO> Date Amanda Hammond DO Cosigner Signature: Date (if applicable) CC: HAND MIN 3 VIEWS Observed: 10/30/2017 Status: F Source: RIYA 9:25 AM [facility] REPOSITORY [facility] Imaging Services [address] [place] [address] Hand Min 3 Views MR#: [id number] Acct: [id number] Name: SUSANA WISEMAN Rep #: [id number] : 1955 F 61 From: Rafael Cameron MD PCP: Ruddy Corral MD, Chi Status: REG CLI Study: Hand Min 3 Views Date of Exam: 10/30/17 Exam# [id number] Ordering Dr: Amanda Hammond DO STUDY: X-RAY - RIGHT HAND REASON FOR EXAM: Numbness around thumb/palm, no specific injury. TECHNIQUE: 3 view(s) of the hand. COMPARISON: Radiographs 12/28/2015. FINDINGS: There is osteopenia. Normal radiocarpal articulation. Normal distal radioulnar joint. Normal visualized carpal bones. Normal carpal articulations Normal carpometacarpal articulation of the thumb. Normal second through fifth carpometacarpal joints. Normal metacarpi. Normal metacarpophalangeal joint of the thumb. Normal interphalangeal joint of the thumb. Normal proximal and distal phalanges of the thumb. Normal metacarpophalangeal joints of the second through fifth fingers. There are small marginal osteophytes and joint space narrowing of the second and fourth proximal interphalangeal joints, and second distal interphalangeal joint. Normal phalanges of the second through fifth fingers. There is vascular calcification. 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 Osteopenia. Electronically Signed: Rafael Cameron MD at 12:49 EDT Tel , Service support , CC: Amanda Hammond DO; Ruddy Corral MD Privacy Director: Signed CBC W/DIFF, AUTOMATED Collected: 09/20/2017 Status: F Source: RIYA 11:53 AM [facility] REPOSITORY TYPE CODE TESTS RESULT OUT OF RANGE REFERENCE UNITS LAB L100.1000 4.4-11.0 K/mm3 Normal WBC 4.8 LAB L100.1200 4.2-5.4 M/mm3 Low RBC 3.92 LAB L100.1300 12.0-15.0 g/dl Normal HGB 12.8 LAB L100.1400 37-47 % Normal HCT 37.4 LAB L100.1500 81-99 fL Normal MCV 95.4 LAB L100.1600 27.0-32.0 pg High MCH 32.7 LAB L100.1700 32-36 g/gl Normal MCHC 34.2 LAB L100.1810 11.6-14.6 % Normal RDW CV 14.0 LAB L100.1820 35.1-43.9 fl High RDW SD 47.0 LAB L100.1900 150-450 K/mm3 Normal PLT 157 LAB L100.2000 6.2-12.0 fl Normal MPV 10.4 LAB L100.2100 47-70 % Normal NEUT% 58.6 LAB L100.2200 19-41 % Normal LY% 25.8 LAB L100.2300 0-10 % High MONO% 12.9 LAB L100.2400 0-5 % Normal EO% 2.3 LAB L100.2500 0-1 % Normal BASO% 0.2 LAB L100.2550 0.0-0.9 % Normal IM GRAN % 0.200 Result Comment: IG% - Immature Granulocytes (promyelocytes, myelocytes and metamyelocytes) > 1% indicates that a LEFT SHIFT is Present. LAB L100.2620 2.0-7.7 X10 3/uL Normal Absolute Neut 2.8 LAB L100.2720 0.83-4.51 X10 3/ul Normal Absolute Lymph 1.24 Performed By: #### L100.0100 #### [facility] [address] [place], [address] COMPREHENSIVE METABOLIC Collected: 09/20/2017 Status: F Source: [facility] 11:53 AM [facility] REPOSITORY TYPE CODE TESTS RESULT OUT OF RANGE REFERENCE UNITS LAB L501.0100 74-106 mg/dL High GLU 125 Result Comment: Fasting Glucose result from 100 to 125 mg/dL suggests IMPAIRED HOMEOSTASIS per A.D.A. criteria. Please note revised GLUCOSE reference range effective 2017. LAB L501.1000 7-18 mg/dL Normal BUN 12 LAB L501.1100 0.55-1.02 mg/dL Normal CREAT,SERUM 0.79 Result Comment: The validity of the calculated GFR AND GFRAA in patients over 70 years has not been determined. Clinical correlation is essential. LAB L501.1110 >60 mL/min Normal EST GFR 78 Result Comment: Non- GFR Calc LAB L501.1115 >60 mL/min Normal EST GFR - AA 94 Result Comment: GFR Calc LAB L501.1300 10-20 RATIO Normal BUN/CRE 15.1 LAB L501.1500 6.4-8.2 g/dL T Normal PROT 6.7 LAB L501.1800 3.2-5.0 g/dL Normal ALB 3.2 LAB L501.1950 2.2-4.2 g/dL Normal GLOB 3.5 LAB L501.2000 0.9-2.4 RATIO Normal A/G 0.9 LAB L501.2200 8.5-10.1 mg/dL CA Normal 8.5 LAB L501.4100 15-37 U/L Normal AST 23 LAB L501.4305 45-117 U/L Normal ALK P 109 LAB L501.4405 13-56 U/L Normal ALT 33 LAB L501.4600 0.20-1.00 mg/dL T Normal BILI 0.70 LAB L501.5300 136-145 mmol/L NA Normal 142 LAB L501.5600 3.5-5.1 mmol/L K Normal 3.6 LAB L501.5900 98-107 mmol/L High CL 108 LAB L501.6100 21.0-32.0 mmol/L Normal CO2 27.0 LAB L501.6200 5-15 Normal GAP 7 Performed By: #### L500.4050, L501.9520 #### [facility] [address] [place], [place], [address] THYROID STIM HORMONE Collected: 09/20/2017 Status: F Source: DERRY (TSH) 11:53 AM [facility] REPOSITORY TYPE CODE TESTS RESULT OUT OF RANGE REFERENCE UNITS LAB L501.9520 0.358-3.74 uIU/mL Normal TSH 0.96 Performed By: #### L500.4050, L501.9520 #### [facility] [address] [place], [address] HEPATITIS C ANTIBODIES Collected: 09/20/2017 Status: F Source: DERRY 11:53 AM [facility] REPOSITORY TYPE CODE TESTS RESULT OUT OF RANGE REFERENCE UNITS LAB L3100.0650 0.0-0.9 s/co ratio Normal HEP C AB 0.1 Result Comment: Negative: < 0.8 Indeterminate: 0.8 - 0.9 Positive: > 0.9 The CDC recommends that a positive HCV antibody result be followed up with a HCV Nucleic Acid Amplification test (182520). Performed at: [facility] [address] [id number] [employer]: Darrell Pavon PhD, Phone: [phone] Performed By: #### L3100.0625 #### [facility] (refer to report for specific site) refer to report for address and phone number EMERGENCY DEPARTMENT Observed: 09/09/2017 Status: F Source: DERRY SUMMARY 11:47 PM [facility] REPOSITORY [facility] Medical Records Department [address] [place] [address] Emergency Department Summary 09/09/17 1731 MR#: [id number] Acct: [id number] Name: SUSANA WISEMAN Rep #: [id number] : 1955 61 From: Fabián Rodas MD PCP: Ruddy Corral MD, Chi Status: DEP ER - ER Visit Summary Date of Service: 09/09/17 Chief Complaint: Tripped and fell complaining of left hip and knee pain. History of Present Illness: The patient is a 61 F history of noncemented diabetes, hypertension, CHF, COPD. Chronically in pain management. Prior history of A. fib. Today tripped and fell over her brother's foot who was walking in front of her. She felt a hard floor and is now complaining of pain in her left hip and left knee. But is able to walk. She is on Coumadin due to blood clots but denies striking her head at all. She denies any headache. Physical Examination: Well-appearing older female. Vital signs are stable and afebrile. Pulse is 95% room air no signs of hypoxia. H EENT exam atraumatic nontender. C-spine nontender. Trachea midline. Lungs clear to auscultation bilaterally. Heart regular rhythm no murmur chest wall nontender. Abdomen soft nontender. She has mild p.o. pedal left hip and anterior lateral left knee but there is no gross bony deformities. She has full range of motion with flexion-extension of the left hip and knee. There is no shortening. No external rotation. No significant pain with range of motion. Left foot and ankle are nontender neurovascular intact with normal dorsalis pedis pulse dorsi and plantar flexion. Right lower and upper extremities are unremarkable. Back exam nontender. Neurologically she is awake alert without focal motor deficits. Test Results: Left hip and pelvis x-ray shows no acute fracture. 3 views. Left knee x-ray no acute fracture prosthesis. Both show osteopenia. Pelvis x-ray no acute fracture. All read both by myself and radiologist. Emergency Department Course and Treatment: Patient did not want anything for pain at this time. X-rays are being obtained. Treatment Plan: Repeat exam patient doing well at 1848 we will be discharged home. Ice to all sore areas. She is on chronic pain meds for chronic back pain. Disposition: Discharge Impression: Acute trip and fall Acute left hip contusion Acute left knee contusion This note was generated with [employer] dictation software. It may contain incorrect words, spelling, and punctuation that were not noted in review of the chart prior to signing ED Disposition - Plan for ED Patient: Chief Complaint: Lower Extremity Injury Referrals: Ruddy Corral Chi, MD [Primary Care Provider] - What to do if you have Problems For any increased pain, shortness of breath, bleeding, nausea or vomiting, chest pain, or any unexpected problems, contact your Primary Care Provider. Call [facility] ([phone]) or report to the closest Emergency Room. Call 911 if necessary. 09/09/17 3334 <Electronically signed by Fabián Rodas MD> Date Fabián Rodas MD Cosigner Signature (If Indicated): Date CC: Ruddy Corral MD DISCHARGE INSTRUCTION Observed: 09/09/2017 Status: F Source: RIYA 11:47 PM [facility] REPOSITORY [facility] Medical Records Department [address] [place] [address] Discharge Instruction 09/09/17 1850 MR#: [id number] Acct: [id number] Name: SUSANA WISEMAN Rep #: [id number] : 1955 61 From: Fabián Rodas MD PCP: Ruddy Corral MD, Chi Status: DEP ER ED Disposition - Plan for ED Patient: Disposition: Home or Assisted Living Chief Complaint: Lower Extremity Injury Instructions: ED Contusion Lower Ext Referrals: Ruddy Corral Chi, MD [Primary Care Provider] - 1 Week if not improving Additional Instructions: Ice to all sore areas. Tylenol and Motrin for pain. Or may use her home pain medication. What to do if you have Problems For any increased pain, shortness of breath, bleeding, nausea or vomiting, chest pain, or any unexpected problems, contact your Primary Care Provider. Call [facility] ([phone]) or report to the closest Emergency Room. Call 911 if necessary. 09/09/17 2347 <Electronically signed by Fabián Rodas MD> Date Fabián Rodas MD Cosigner Signature (If Indicated): Date CC: Ruddy Corral MD KNEE 3 VIEWS Observed: 09/09/2017 Status: F Source: RIYA 5:29 PM [facility] REPOSITORY [facility] Imaging Services [address] [place] [address] Knee 3 Views MR#: [id number] Acct: [id number] Name: JALEN WISEMANA Moises Rep #: [id number] : 1955 F 61 From: Fox Ordaz MD PCP: Ruddy Corral MD, Chi Status: REG ER Study: Knee 3 Views Date of Exam: 09/09/17 Exam# [id number] Ordering Dr: Fabián Rodas MD STUDY: X-RAY - LEFT KNEE REASON FOR EXAM: Female, 61 years old. Fall. Pain. TECHNIQUE: 3 view(s) of the knee. COMPARISON: May 25, 2016 FINDINGS: There is generalized osteopenia. There is a 3 component total knee arthroplasty in anatomic alignment without complications. The soft tissue structures are unremarkable. RAD/Knee 3 Views IMPRESSION: Osteopenia with 3 component total knee arthroplasty without complications. No acute pathology. Electronically Signed: Fox Ordaz MD at 18:18 EDT , Service support , CC: Fabián Rodas MD; Ruddy Corral MD Privacy Director: Signed PELVIS 1 OR 2 VIEWS Observed: 09/09/2017 Status: F Source: DERRY 5:29 PM [facility] REPOSITORY [facility] Imaging Services [address] [place] [address] Pelvis 1 or 2 Views MR#: [id number] Acct: [id number] Name: SUSANA WISEMAN Rep #: [id number] : 1955 F 61 From: Fox Ordaz MD PCP: Ruddy Corral MD, Chi Status: REG ER Study: Pelvis 1 or 2 Views Date of Exam: 09/09/17 Exam# [id number] Ordering Dr: Fabián Rodas MD STUDY: X-RAY - PELVIS REASON FOR EXAM: Female, 61 years old. Fall with left femur pain radiating into knee. TECHNIQUE: One view of the pelvis was obtained. COMPARISON: None. FINDINGS: There is a non-specific bowel gas pattern. Normal visualized soft tissue structures. There is mild generalized osteopenia. There is mild arthrosis of both sacroiliac Normal visualized bilateral superior and inferior pubic rami. Normal pubic symphysis. Normal ischial tuberosities. Normal visualized right femoral head. Normal right acetabulum. Normal right hip joint. Normal visualized left femoral head. Normal left acetabulum. Normal left hip joint. RAD/Pelvis 1 or 2 Views IMPRESSION: Osteopenia with sacroiliac arthrosis bilaterally. No acute pathology. Electronically Signed: Fox Ordaz MD at 18:22 EDT , Service support , CC: Fabián Rodas MD; Ruddy Corral MD Privacy Director: Signed FEMUR MIN 2 VIEWS Observed: 09/09/2017 Status: F Source: DERRY 5:29 PM [facility] REPOSITORY [facility] Imaging Services [address] [place] [address] Femur Min 2 Views MR#: [id number] Acct: [id number] Name: SUSANA WISEMAN Rep #: [id number] : 1955 F 61 From: Fox Ordaz MD PCP: Ruddy Corral MD, Chi Status: REG ER Study: Femur Min 2 Views Date of Exam: 09/09/17 Exam# [id number] Ordering Dr: Fabián Rodas MD STUDY: X-RAY - LEFT FEMUR REASON FOR STUDY: Female, 61 years old. Fall. Pain. TECHNIQUE: Radiological exam, femur, minimum 2 views COMPARISON: None. FINDINGS: There is generalized osteopenia. There is mild arthrosis of the left hip. There is a 3 component total knee arthroplasty without complications. Normal visualized soft tissue structure. RAD/Femur Min 2 Views IMPRESSION: Osteopenia with arthrosis of the left hip. Three component total knee arthroplasty without complications. No acute osseous abnormality. Electronically Signed: Fox Ordaz MD at 18:25 EDT , Service support , CC: Fabián Rodas MD; Ruddy Corral MD Privacy Director: Signed ORTHOPEDIC VISIT Observed: 08/23/2017 Status: F Source: [place] REPORT 9:12 AM [facility] [address] [place] [address] OFFICE VISIT Date of Service: 08/16/17 MR#: [id number] Acct: [id number] Name: SUSANA WISEMAN Rep #: [id number] : 1955 Provider: Jesse Lemus DO Age/Sex: 61/F [place] [facility] [place] [place]: Signed Intake Intake Visit Reasons: bilateral shoulder Is patient in pain?: Yes Pain scale (1-10): 1 Allergies flecainide [Flecainide] Allergy (Verified 08/16/17 10:32) Rash Medications Albuterol Inhaler [Ventolin Hfa] 2 puff INHALATION Q4H PRN PRN 04/20/17 [History Confirmed 05/16/17] Atorvastatin Calcium [Lipitor] 40 mg PO QHS 04/20/17 [History Confirmed 05/16/17] Budesonide/Formoterol 160/4.5 [Symbicort 160/4.5 Mcg Inhaler (SP)] 2 puff INHALATION BID 04/20/17 [History Confirmed 04/20/17] Calcium Carbonate [Calcium] 2 tab PO DAILY 04/20/17 [History Confirmed 05/16/17] Celecoxib [Celebrex] 200 mg PO DAILY 04/20/17 [History Confirmed 05/16/17] Ergocalciferol [Vitamin D] 50,000 unit PO QMONTH 04/20/17 [History Confirmed 05/16/17] Metformin HCl [Glucophage] 1,000 mg PO BIDCM 04/20/17 [History Confirmed 05/16/17] Multivitamins,Therapeutic [Multivitamin] 1 tab PO DAILY 04/20/17 [History Confirmed 05/16/17] Olmesartan/Hydrochlorothiazide [Benicar Hct 40-12.5 MG Tab] 1 tab PO DAILY 04/20/17 [History Confirmed 05/16/17] Pramipexole Di-HCl [Mirapex] 0.5 mg PO BID 04/20/17 [History Confirmed 05/16/17] Solifenacin Succinate [Vesicare] 5 mg PO DAILY 04/20/17 [History Confirmed 05/16/17] Vit A/Vit C/Vit E/Zinc/Copper [Preservision Areds Softgel] 1 ea PO DAILY 04/20/17 [History Confirmed 05/16/17] Vortioxetine Hydrobromide [Trintellix] 20 mg PO DAILY 04/20/17 [History Confirmed 04/20/17] Meclizine HCl 25 mg PO TID PRN #15 tab.chew 04/21/17 [Rx] duloxetine 30 mg capsule,delayed release 30 mg PO BID 05/16/17 [History Confirmed 05/16/17] oxycodone-acetaminophen 5 mg-325 mg tablet 1 tab PO .COMPLEX PRN tab 05/16/17 [History Confirmed 05/16/17] pregabalin 75 mg capsule 75 mg PO BID 05/16/17 [History Confirmed 05/16/17] warfarin 10 mg tablet 11 mg PO .COMPLEX 05/16/17 [History Confirmed 05/16/17] zolpidem ER 12.5 mg tablet,extended release,multiphase 12.5 mg PO HS PRN 05/16/17 [History Confirmed 05/16/17] PFSH Medical History Hyperlipidemia (Chronic) Atrial fibrillation (Chronic) Benign essential hypertension (Chronic) Morbid obesity (Chronic) Obstructive sleep apnea (Chronic) Hx of pulmonary embolus (Chronic) Surgical History Status post radiofrequency ablation operation for arrhythmia (Chronic) History of repair of left rotator cuff (Chronic) History of repair of right rotator cuff (Chronic) 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 Patient notes that her shoulders are improving. She has good bilateral shoulder range of motion and her strength is improving. She states that she is back to her ADLs. Patient has soreness over her anterior shoulder with palpation. Denies numbness, tingling or other associated symptoms. ROS Const Reports system reviewed and no additional complaints, except as docu Eyes Reports system reviewed and no additional complaints, except as docu ENT Reports system reviewed and no additional complaints, except as docu Card Reports system reviewed and no additional complaints, except as docu Resp Reports system reviewed and no additional complaints, except as docu GI Reports system reviewed and no additional complaints, except as docu Reports system reviewed and no additional complaints, except as docu Skin/Breast Reports system reviewed and no additional complaints, except as docu Neuro Yes system reviewed and no additional complaints, except as docu Psych Reports system reviewed and no additional complaints, except as docu Endo Reports system reviewed and no additional complaints, except as docu Ortho Exam Right Shoulder SHOULDER: Patient is alert oriented 3 in no acute distress. Appropriate eye contact affect. Otherwise intact from C5 the T2 distributions. She has +2 pulses. She has no extra adenopathy bilaterally. Right shoulder: Patient shows excellent range of motion to the right upper extremity. Incision is otherwise clean dry and intact. Patient will demonstrate for me active forward elevation about 160 270 . External rotation is to be limited by the prosthesis roughly 30 . However the patient is able to abduct external rotate to about 85 without difficulty. Internal rotation is also limited again by the prosthesis as well. X-rays: Evaluated by myself with the patient of the right shoulder.-Right reverse total shoulder arthroplasty is otherwise well-seated well-placed with no signs of any loosening. No impingement. Left shoulder: Patient is a history of left shoulder rotator cuff repair with revision. Patient currently shows excellent range of motion essentially full range of motion in all planes. She does have a very mild Bernard and Neer's maneuver. But otherwise she states that her gross motor strength is roughly 4+/5. No lag with belly press. External rotation at side and strength is 5 out of 5. Internal rotation is only limited to roughly the T12 level. Assessment AND Plan Problems 1. Nontraumatic complete tear of right rotator cuff M75.121 2. Complete tear of left rotator cuff M75.122 3. History of reverse total replacement of right shoulder joint Z98.890 Plan Assessment: Left shoulder rotator cuff tear status post revision rotator cuff repair doing well, history of irreparable right shoulder rotator cuff tear status post right reverse total shoulder arthroplasty-doing well. Plan: At this point time patient is doing very well with her reverse and her revision rotator cuff repair on the left. For now we will just continue with conservative care working on good range of motion. This was her one-year follow-up for essentially a right reverse shoulder. Very pleased thus far as she is without really with both outcomes. Patient will follow-up with my partner for any remaining orthopedic issues that she is aware that I am leaving the practice. I told the patient continue work on cuff exercises really as a part of her normal activities of daily living for the past continued outcomes to include the reverse. There is any issues patient can follow back up with my partner for evaluation of a reverse total shoulder arthroplasty however for revision was needed to be performed we will refer to the [facility] or another outside orthopedic group. Orders Orders: Coding Level of Care Code Off vis,est,level 4 Diagnoses Nontraumatic complete tear of right rotator cuff M75.121 Complete tear of left rotator cuff M75.122 Rotator cuff tear extent: complete History of reverse total replacement of right shoulder joint Z98.890 08/23/17 0912 <Electronically signed by Jesse Lemus DO> Date Jesse Lemus DO Cosigner Signature: Date (if applicable) CC: SHOULDER MIN 2 VIEWS Observed: 08/16/2017 Status: F Source: [place] 8:50 AM [facility] Imaging Services [address] [place] [address] Shoulder min 2 Views MR#: [id number] Acct: [id number] Name: SUSANA WISEMAN Rep #: [id number] : 1955 F 61 From: Adria Louis DO PCP: Ruddy Corral MD, Chi Status: REG CLI Study: Shoulder min 2 Views Date of Exam: 08/16/17 Exam# [id number] Ordering Dr: Jesse Lemus DO STUDY: X-RAY - RIGHT SHOULDER REASON FOR EXAM: Female, 61 years old. Pain. Prior surgery. TECHNIQUE: 3 view(s) of the shoulder. COMPARISON: None. FINDINGS: There is a right total shoulder arthroplasty. The prosthetic components are intact. There is evidence of a posterior dislocation of the humeral component. No loosening from the underlying bone. Normal acromioclavicular joint. Normal acromion. The soft tissue structures are unremarkable. Normal visualized pulmonary apex. RAD/Shoulder min 2 Views IMPRESSION: Posterior dislocation of the right are filled Electronically Signed: Adria Louis DO at 17:07 EDT Tel [phone], Service support , CC: Jesse Lemus DO; Ruddy Corral MD Privacy Director: Signed URINE DRUG SCREEN Collected: 07/11/2017 Status: F Source: RIYA (VISTA) 3:40 PM [facility] REPOSITORY Order Comment: Comments: [id number] URINE DRUG SCREEN RUN LOWEST TEST List of Drugs Taken or Suspected? UNK TYPE CODE TESTS RESULT OUT OF RANGE REFERENCE UNITS LAB L505.0075 TO BE Normal CONFIRMED Result Comment: CONFIRMATORY TESTING FOR ALL POSITIVE URINE DRUG SCREEN RESULTS WILL ONLY BE SENT OUT UPON PHYSICIAN ORDER. VISTA Urine Drug Screen methods provide only preliminary analytical test results. A more specific alternate chemical method must be used in order to obtain a confirmed analytical result. Gas chromatography/mass spectrometery (GC/MS) is the preferred confirmatory method. Clinical consideration and professional judgement should be applied to any drug of abuse test result, particularly when preliminary positive results are used. URINE TCA TESTING MUST BE ORDERED SEPARATELY. USE TEST MNEMONIC: [facility] LAB L505.5005 VISTA UDS PH 5 Normal LAB L505.5015 <1000 ng/mL AMPHETAMINES Normal NEGATIVE LAB L505.5025 < 200 ng/mL BARBITIURATES Normal NEGATIVE LAB L505.5035 < 200 ng/mL BENZODIAZIPINE Normal NEGATIVE LAB L505.5045 < 300 ng/mL COCAINE Normal NEGATIVE LAB L505.5055 < 500 High ng/mL ECSTACY POSITIVE LAB L505.5065 < 300 ng/mL METHADONE Normal NEGATIVE LAB L505.5075 < 300 High ng/mL OPIATES POSITIVE LAB L505.5085 < 25 ng/mL PCP Normal NEGATIVE LAB L505.5095 < 50 ng/mL THC Normal NEGATIVE Performed By: #### L505.5000 #### [facility] [address] [place], [address] MISCELLANEOUS LAB Collected: 07/11/2017 Status: F Source: RIYA PROCEDURE 3:40 PM [facility] REPOSITORY Order Comment: Comments: [id number] URINE DRUG SCREEN RUN LOWEST TEST Test(s) Ordered: [id number] URINE DRUG SCREEN RUN LOWEST TEST TYPE CODE TESTS RESULT OUT OF RANGE REFERENCE UNITS LAB L801.1541 Normal [facility] Result Comment: TEST RESULT UNITS REF INTERVAL [id number] 6+Oxycodone-Bund Amphetamines, Urine Negative ng/mL Danqnh=5755 Amphetamine test includes Amphetamine and Methamphetamine. Barbiturate Negative ng/mL Hgjkzq=071 Benzodiazepines Negative ng/mL Nhdlzl=119 Cannabinoids Negative ng/mL Cutoff=20 Cocaine (Metabolite) Negative ng/mL Wshycl=182 Opiates Positive ng/mL Olbaxn=621 Opiate test includes Codeine, Morphine, Hydromorphone, Hydrocodone. Please Note: Confirmation performed by Mass Spectrometry Codeine Negative Mourpz=418 Morphine Negative Viufjo=393 Hydromorphone Negative Ctipmw=454 Hydrocodone Positive Hydrocodone Confirm 838 ng/mL Hhqosc=376 Oxycodone/Oxymorphone, Urine Negative ng/mL Qowyqv=369 Test includes Oxycodone and Oxymorphone TESTING PERFORMED AT [facility]. ORIGINAL REPORT ON FILE IN LAB CONTAINS ADDITIONAL TEST SITE INFORMATION. Performed By: #### L801.1541 #### [facility] [address] [place], [address] LUMBAR SPINE 2 OR 3 Observed: 05/16/2017 Status: F Source: [place] VIEWS 1:47 PM [facility] Imaging Services [address] [place] [address] Lumbar Spine 2 or 3 Views MR#: [id number] Acct: [id number] Name: SUSANA WISEMAN Rep #: [id number] : 1955 F 61 From: Jesus Alberto Newton DO PCP: Ellis KRUEGER,Ruddy Chi Status: REG CLI Study: Lumbar Spine 2 or 3 Views Date of Exam: 05/16/17 Exam# [id number] Ordering Dr: Montserrat Elias MD STUDY: X-RAY - LUMBAR SPINE REASON FOR EXAM: Female, 61 years old. New onset pain after fall TECHNIQUE: 3 view(s) of the lumbar spine were obtained. COMPARISON: None FINDINGS: Normal lumbar lordosis. There is no substantial scoliosis. There is a normal alignment of the vertebrae. There is multilevel endplate spondylosis of the lumbar vertebrae. There is multi-level degenerative disc disease with multi-level disc space narrowing. There is no demonstrated fracture. The soft tissue structures are unremarkable. RAD/Lumbar Spine 2 or 3 Views IMPRESSION: Degenerative changes of the spine, as detailed above. Electronically Signed: Jesus Alberto Newton DO at 8:44 EDT Tel , Service support , CC: Montserrat Elias MD; Ruddy Corral MD Privacy Director: Signed 12 LEAD ELECTROCARDIOGRAM Observed: 04/24/2017 Status: F Source: RIYA 1:10 PM [facility] Cardiovascular Services [address] [place] [address] 12 Lead EKG 04/20/17 0712 MR#: [id number] Acct: [id number] Name: SUSANA WISEMAN Rep #: [id number] : 1955 61 From: Stuart Alberto MD Attending Dr: Ubaldo Kilpatrick DO Status: DIS TRISTON Ordering Dr: Fabián Rodas MD Date: 04/20/17 Location: [facility] Sex: F C Admitted: 04/20/17 Test Reason : DIZZINESS Blood Pressure : / mmHG Vent. Rate : 086 BPM Atrial Rate : 086 BPM P-R Int : 218 ms QRS Dur : 092 ms QT Int : 384 ms P-R-T Axes : 101 037 021 degrees QTc Int : 459 ms Sinus rhythm with 1st degree A-V block Otherwise normal ECG Confirmed by STUART ALBERTO ([id number]), scientific editor CORAZON HENLEY ([id number]) on 04/24/2017 1:10:00 PM Referred By: JOEL Confirmed By:STUART ALBERTO 04/24/17 1310 Date Stuart Alberto MD CC: Fabián Rodas MD; Ruddy Corral MD Signed ECHOCARDIOGRAM COMPLETE Observed: 04/21/2017 Status: F Source: RIYA 11:42 AM [facility] Cardiovascular Services [address] [place] [address] Echo Complete 04/21/17 0809 MR#: [id number] Acct: [id number] Name: SUSANA WISEMAN Rep #: [id number] : 1955 61 From: Stuart Alberto MD Attending Dr: Ubaldo Kilpatrick DO Status: DIS TRISTON Ordering Dr: Ubaldo Kilpatrick DO Date: 04/20/17 Location: [facility] Sex: F C Admitted: 04/20/17 Reason For Study: TIA/STROKE Procedure This was a 2D Doppler, Color Flow transthoracic echocardiogram. The study was technically difficult. Exam performed portable in patient room. Left Ventricle Normal size and thickness. The estimated ejection fraction is 65 %. Normal diastology for age. No regional wall motion abnormalities noted. Right Ventricle Normal size and thickness. Normal systolic function. Atria The left atrium is mildly enlarged. Normal right atrium. Normal atrial septum. Mitral Valve The mitral valve is structurally normal. No prolapse or stenosis seen. Tricuspid Valve Normal tricuspid valve. Trivial tricuspid valve insufficiency. Right ventricular systolic pressure estimated to be 24 mmHg. Aortic Valve Trisinus/trileaflet aortic valve. Mild diffuse aortic valve thickening. Mild focal aortic valve calcification. Mild aortic stenosis. Pulmonic Valve Normal pulmonic valve. Great Vessels Normal aortic root. Normal arch. Normal inferior vena cava. Inferior vena cava collapse with sniff. Pericardium/Pleural No pericardial effusion. MMode/2D Measurements AND Calculations LVIDd: 4.6 cm IVSd: 0.86 cm LVOT diam: 1.9 cm LVIDs: 3.0 cm LVPWd: 1.0 cm LVOT area: 2.8 cm2 RVDd: 2.8 cm FS: 34.2 % Ao root diam: 3.0 cm LAV(MOD-bp): 58.0 ml EDV(MOD-sp4): 95.7 ml LA dimension: 3.9 cm LAV(MOD-bp) Indexed: 27.0 ml/m2 ESV(MOD-sp4): 41.0 ml LAV(MOD-sp2): 59.3 ml EF(MOD-sp4): 57.2 % LAV(MOD-sp4): 55.2 ml EDV(MOD-sp2): 108.9 ml SV(MOD-sp4): 54.7 ml SV(MOD-sp2): 58.7 ml EF(MOD-sp2): 53.9 % LA A4 area: 19.8 cm2 RA A4 area: 13.3 cm2 Doppler Measurements AND Calculations MV E max saroj: 106.2 cm/sec Ao V2 max: 221.9 cm/sec LV V1 max: 127.0 cm/sec MV A max saroj: 66.9 cm/sec Ao max P.7 mmHg LV V1 max P.4 mmHg MV E/A: 1.6 Ao V2 mean: 149.9 cm/sec LV V1 mean P.2 mmHg Ao mean P.5 mmHg LV V1 mean: 80.5 cm/sec Ao V2 VTI: 45.2 cm LV V1 VTI: 29.8 cm KRISHNA(I,D): 1.8 cm2 KRISHNA(V,D): 1.6 cm2 SV(LVOT): 82.9 ml PA V2 max: 132.7 cm/sec TR max saroj: 217.5 cm/sec TR max P.9 mmHg Interpretation Summary The estimated ejection fraction is 65 %. Normal diastology for age. The left atrium is mildly enlarged. Trivial tricuspid valve insufficiency. Right ventricular systolic pressure estimated to be 24 mmHg. Mild aortic stenosis. Compared to echo report dated 03/08/2016, no appreciable changes noted. The study was technically difficult. Ordering Physician: Ubaldo Kilpatrick Referring Physician: Ruddy Corral Chi Performed By: Emily Pederson, RDCS, RVT 04/21/17 1142 Date Stuart Alberto MD CC: Ubalod Kilpatrick DO; Ruddy Corral MD Date Dictated: 04/21/17 0809 Date Transcribed: 04/21/17 114 Privacy Director: Signed DISCHARGE SUMMARY Observed: 04/21/2017 Status: F Source: [place] 8:35 AM [facility] Medical Records Department [address] [place] [address] Discharge Summary 04/21/17832 MR#: [id number] Acct: [id number] Name: SUSANA WISEMAN Rep #: [id number] : 1955 61 From: Ubaldo Kilpatrick DO PCP: Ruddy Corral MD, Chi Status: ADM TRISTON Y Location: [place] [address] Discharge Date and Diagnosis - Problem List Patient Problems: Active and Suspected Problems Dizziness (Acute) Date of Admission: 04/20/17 Date of Discharge: 04/21/17 - Primary Discharge Diagnosis Active and Suspected Problems Dizziness (Acute) - Secondary Discharge Diagnosis Chronic Problems Atrial fibrillation (Chronic) Benign essential hypertension (Chronic) Dyslipidemia (Chronic) Morbid obesity (Chronic) Status post radiofrequency ablation operation for arrhythmia (Chronic) Obstructive sleep apnea (Chronic) Hx of pulmonary embolus (Chronic) Hospital Course and Treatment Imaging Results: Clinical Impression(s) from Imaging Studies Brain CT 04/20/17 07:17 IMPRESSION: Chronic involutional changes of the brain. Electronically Signed: Tariq Kapoor MD at 8:22 EST Tel [phone], Service support , Brain MRI 04/20/17 14:06 IMPRESSION: Unremarkable, age-appropriate MRI examination of the brain. at 2116 Reported and signed by: Corazon Holm MD Electronically Signed: Corazon Holm MD at 20:14 EST Tel , Service support , Head MRA 04/20/17 14:06 IMPRESSION: Limited study due to motion. Evaluation for small aneurysm is not possible. No evidence of large vessel occlusion. at 1714 Reported and signed by: Corazon Holm MD Electronically Signed: Corazon Holm MD at 16:13 EST Tel , Service support , Neck MRA 04/20/17 14:06 IMPRESSION: Slightly Limited study. No abnormality identified. at 1711 Reported and signed by: Corazon Holm MD Electronically Signed: Corazon Holm MD at 16:09 EST Tel , Service support , Operations: None Procedures: None Summary of Care Provided: The patient is a 61 year old F presents with acute onset of dizziness upon awakening. Dizziness was positional. Patient never had events like this before. Patient was admitted and underwent a stroke workup with MRI and MRA. Those were negative. It is felt that the dizziness was peripheral such as benign paroxysmal positional vertigo. Patient will be provided his prescription for meclizine to be used as needed. Given that she has no symptoms at this time is been an isolated event that lasted less than 24 hours do not feel that vestibular rehab is necessary at this time though it could be considered at a later point if patient does have recurrent symptoms. [] Discharge Diet: 2000 Calorie Control Diet Discharge Activity: Return to Normal Activity Call your doctor if you observe: - - worsening dizziness Home Medications: Medications to take at Discharge Albuterol Inhaler [Ventolin Hfa] 2 puff INHALATION Q4H PRN PRN 04/20/17 Atorvastatin Calcium [Lipitor] 40 mg PO QHS 04/20/17 Budesonide/Formoterol 160/4.5 [Symbicort 160/4.5 Mcg Inhaler (SP)] 2 puff INHALATION BID 04/20/17 Calcium Carbonate [Calcium] 2 tab PO DAILY 04/20/17 Celecoxib [Celebrex] 200 mg PO DAILY 04/20/17 Ergocalciferol [Vitamin D] 50,000 unit PO QMONTH 04/20/17 Metformin HCl [Glucophage] 1,000 mg PO BIDCM 04/20/17 Multivitamins,Therapeutic [Multivitamin] 1 tablet PO DAILY 04/20/17 Olmesartan/Hydrochlorothiazide [Benicar Hct 40-12.5 MG Tab] 1 tab PO DAILY 04/20/17 Pramipexole Di-HCl [Mirapex] 0.5 mg PO BID 04/20/17 Solifenacin Succinate [Vesicare] 5 mg PO DAILY 04/20/17 Vit A/Vit C/Vit E/Zinc/Copper [Preservision Areds Softgel] 1 each PO DAILY 04/20/17 Vortioxetine Hydrobromide [Trintellix] 20 mg PO DAILY 04/20/17 Warfarin Sodium [Coumadin] 11 mg PO DAILY 04/20/17 Meclizine HCl 25 mg PO TID PRN #15 tab.chew 04/21/17 Following Prescrptions Were Given to Patient: Meclizine HCl 25 mg PO TID PRN #15 tab.chew PRN Reason: Dizziness Primary Care Physician: Ruddy Corral Chi, MD [Primary Care Provider] - Within 2 Weeks Disposition: Home Minutes spent on discharge:: 25 Patient Condition:: Good Meaningful Use Info Meaningful Use Diagnoses (Choose all that apply): None applicable Code Visit OBSV Bean AND M: 21641 Observation care discharge 04/21/17834 <Electronically signed by Ubaldo Kilpatrick DO> Date Ubaldo Kilpatrick DO Cosigner Signature (if applicable): Date CC: Ubaldo Kilpatrick DO; Ruddy Corral MD Signed DISCHARGE INSTRUCTION Observed: 04/21/2017 Status: F Source: [place] 8:33 AM [facility] Medical Records Department [address] [place] [address] Instructions for Home/Discharge Instructions 04/21/17829 MR#: [id number] Acct: [id number] Name: SUSANA WISEMAN Rep #: [id number] : 1955 61 From: Ubaldo Kilpatrick DO PCP: Ruddy Corral MD, Chi Status: ADM TRISTON - Discharge Diagnoses Current Active Problems: Current Active and Chronic Problems Dizziness (Acute) You will use the following diet at home:: Calorie/Carbohydrate Controlled (specify 1200, 1400, etc) - 2000 kcal/day Your food should be the consistency of: Regular Your liquids should be the consistency of: Regular/Thin Discharge Activity: Return to Normal Activity Call your doctor if you observe: - - worsening dizziness Allergies/Adverse Reactions: Allergies flecainide [Flecainide] Allergy (Verified 04/20/17 06:57) Rash Medications to take at Discharge Albuterol Inhaler [Ventolin Hfa] 2 puff INHALATION Q4H PRN PRN 04/20/17 Atorvastatin Calcium [Lipitor] 40 mg PO QHS 04/20/17 Budesonide/Formoterol 160/4.5 [Symbicort 160/4.5 Mcg Inhaler (SP)] 2 puff INHALATION BID 04/20/17 Calcium Carbonate [Calcium] 2 tab PO DAILY 04/20/17 Celecoxib [Celebrex] 200 mg PO DAILY 04/20/17 Ergocalciferol [Vitamin D] 50,000 unit PO QMONTH 04/20/17 Metformin HCl [Glucophage] 1,000 mg PO BIDCM 04/20/17 Multivitamins,Therapeutic [Multivitamin] 1 tablet PO DAILY 04/20/17 Olmesartan/Hydrochlorothiazide [Benicar Hct 40-12.5 MG Tab] 1 tab PO DAILY 04/20/17 Pramipexole Di-HCl [Mirapex] 0.5 mg PO BID 04/20/17 Solifenacin Succinate [Vesicare] 5 mg PO DAILY 04/20/17 Vit A/Vit C/Vit E/Zinc/Copper [Preservision Areds Softgel] 1 each PO DAILY 04/20/17 Vortioxetine Hydrobromide [Trintellix] 20 mg PO DAILY 04/20/17 Warfarin Sodium [Coumadin] 11 mg PO DAILY 04/20/17 Meclizine HCl 25 mg PO TID PRN #15 tab.chew 04/21/17 The following prescriptions were given: Meclizine HCl 25 mg PO TID PRN #15 tab.chew PRN Reason: Dizziness Primary Care Physician: Ruddy Corral Chi, MD [Primary Care Provider] - Within 2 Weeks Proposed Discharge Date: 04/21/17 04/21/17 0833 <Electronically signed by Ubaldo Kilpatrick DO> Date Ubaldo Kilpatrick DO CC: Ruddy Corral MD BEDSIDE GLUCOSE Collected: 04/21/2017 Status: F Source: RIYA 6:50 AM [facility] REPOSITORY TYPE CODE TESTS RESULT OUT OF REFERENCE UNITS RANGE LAB L501.080 70-110 mg/dL High BEDSIDE GLU 136 Result Comment: MANAGEMENT OF PATIENT CARE PER NURSING PROTOCOL Performed By: #### L501.080 #### [facility] Point of Care [address] [place] [address] CBC W/DIFF, AUTOMATED Collected: 04/21/2017 Status: F Source: RIYA 5:40 AM [facility] REPOSITORY TYPE CODE TESTS RESULT OUT OF RANGE REFERENCE UNITS LAB L100.1000 4.4-11.0 K/mm3 Normal WBC 6.1 LAB L100.1200 4.2-5.4 M/mm3 Low RBC 3.78 LAB L100.1300 12.0-15.0 g/dl Normal HGB 12.4 LAB L100.1400 37-47 % Normal HCT 37.3 LAB L100.1500 81-99 fL Normal MCV 98.7 LAB L100.1600 27.0-32.0 pg High MCH 32.8 LAB L100.1700 32-36 g/gl Normal MCHC 33.2 LAB L100.1810 11.6-14.6 % Normal RDW CV 14.0 LAB L100.1820 35.1-43.9 fl High RDW SD 50.2 LAB L100.1900 150-450 K/mm3 Normal PLT 153 LAB L100.2000 6.2-12.0 fl Normal MPV 9.4 LAB L100.2100 47-70 % Normal NEUT% 54.2 LAB L100.2200 19-41 % Normal LY% 34.4 LAB L100.2300 0-10 % Normal MONO% 9.8 LAB L100.2400 0-5 % Normal EO% 1.1 LAB L100.2500 0-1 % Normal BASO% 0.3 LAB L100.2550 0.0-0.9 % Normal IM GRAN % 0.200 Result Comment: IG% - Immature Granulocytes (promyelocytes, myelocytes and metamyelocytes) > 1% indicates that a LEFT SHIFT is Present. LAB L100.2620 2.0-7.7 X10 3/uL Normal Absolute Neut 3.3 LAB L100.2720 0.83-4.51 X10 3/ul Normal Absolute Lymph 2.10 Performed By: #### L100.0100 #### [facility] [place], [address] PROTHROMBIN TIME W/INR Collected: 04/21/2017 Status: F Source: DERRY 5:40 AM [facility] REPOSITORY TYPE CODE TESTS RESULT OUT OF RANGE REFERENCE UNITS LAB L300.4150 11.7-14.9 SECONDS High PROTIME 19.3 LAB L300.4200 Normal INR 1.7 Performed By: #### L300.3900 #### [facility] [address] [facility] [place], [place], [address] BASIC METABOLIC Collected: 04/21/2017 Status: F Source: DERRY PROFILE (BMP) 5:40 AM [facility] REPOSITORY TYPE CODE TESTS RESULT OUT OF RANGE REFERENCE UNITS LAB L501.0100 74-106 mg/dL High GLU 117 Result Comment: Fasting Glucose result from 100 to 125 mg/dL suggests IMPAIRED HOMEOSTASIS per A.D.A. criteria. Please note revised GLUCOSE reference range effective 2017. LAB L501.1000 7-18 mg/dL Normal BUN 13 LAB L501.1100 0.55-1.02 mg/dL Normal CREAT,SERUM 0.73 Result Comment: The validity of the calculated GFR AND GFRAA in patients over 70 years has not been determined. Clinical correlation is essential. LAB L501.1110 >60 mL/min Normal EST GFR 86 Result Comment: Non- GFR Calc LAB L501.1115 >60 mL/min Normal EST GFR - AA 104 Result Comment: GFR Calc LAB L501.1255 ml/min Normal Estimated CRCL 65.25 LAB L501.1300 10-20 RATIO Normal BUN/CRE 17.9 LAB L501.2200 8.5-10 mg/dL Normal .1 CA 8.6 LAB L501.5300 136-14 mmol/L Normal 5 NA 142 LAB L501.5600 3.5-5. mmol/L Normal 1 K 3.9 LAB L501.5900 98-107 mmol/L Normal CL 105 LAB L501.6100 21.0-3 mmol/L Normal 2.0 CO2 29.0 LAB L501.6200 5-15 Normal GAP 8 Performed By: #### L500.2500, L500.4100 #### [facility] [address] [place], [place], [address] LIPID PROFILE Collected: 04/21/2017 Status: F Source: DERRY 5:40 AM [facility] REPOSITORY TYPE CODE TESTS RESULT OUT OF RANGE REFERENCE UNITS LAB L501.4900 200 mg/dL Normal CHOL 156 Result Comment: <200 mg/dL Desirable 200-240 mg/dL Borderline >240 mg/dL High Risk LAB L501.5000 mg/dL Normal TRIG 149 Result Comment: The drugs N-Acetylcysteine and Metamizole may falsely depress this assay. Serum Triglycerides Reference Interval Normal <150 mg/dL Borderline high 150 - 199 mg/dL High 200 - 499 mg/dL Very High > or = 500 mg/dL LAB L501.6400 mg/dL Normal HDL 52 Result Comment: The drugs N-Acetylcysteine and Metamizole may falsely depress this assay. Reference Range HDL <40 mg/dL Low HDL Cholesterol HDL >or= 60 mg/dL High HDL Cholesterol LAB L501.6500 0-130 mg/dL Normal LDL 74 LAB L501.6600 5-40 mg/dL Normal VLDL 30 Performed By: #### L500.2500, L500.4100 #### [facility] [address] [facility] [place] [facility] [address] BEDSIDE GLUCOSE Collected: 04/20/2017 Status: F Source: DERRY 8:53 PM [facility] REPOSITORY TYPE CODE TESTS RESULT OUT OF REFERENCE UNITS RANGE LAB L501.080 70-110 mg/dL High BEDSIDE GLU 135 Result Comment: MANAGEMENT OF PATIENT CARE PER NURSING PROTOCOL Performed By: #### L501.080 #### [facility] Point of Care [address] [facility] [place] [address] BEDSIDE GLUCOSE Collected: 04/20/2017 Status: F Source: DERRY 4:34 PM [facility] REPOSITORY TYPE CODE TESTS RESULT OUT OF REFERENCE UNITS RANGE LAB L501.080 70-110 mg/dL High BEDSIDE GLU 127 Result Comment: MANAGEMENT OF PATIENT CARE PER NURSING PROTOCOL Performed By: #### L501.080 #### [facility] Point of Care [address] [facility] [place] [address] EMERGENCY DEPARTMENT Observed: 04/20/2017 Status: F Source: DERRY SUMMARY 4:23 PM [facility] REPOSITORY [facility] Medical Records Department [address] [facility] [place] [address] Emergency Department Summary 04/20/17 0713 MR#: [id number] Acct: [id number] Name: SUSANA WISEMAN Rep #: [id number] : 1955 61 From: Fabián Rodas MD PCP: Ellis KRUEGER,Ruddy Mclain Status: ADM [facility] - ER Visit Summary Date of Service: 04/20/17 Chief Complaint: Dizzy meaning off balance History of Present Illness: The patient is a 61 F is a history of prior A. fib, DVT and PE, hkp-yjebukf-metojtwtj diabetes, hypertension and COPD. She is on Coumadin. This morning she felt off balance. She did fall 2 days ago and hit her head but denies any headache. His any room spinning. She denies any numbness, tingling or weakness to any of her extremities. She denies problems using her arms or legs. She denies any speech or acute visual changes. Physical Examination: Appearing female. Vital signs are stable and she is afebrile. Pulse ox 90% room air no signs of hypoxia. HEENT exam is unremarkable except she does have a small contusion by her right eyebrow that occurred when she fell 2 days ago. It is nontender. There is no facial droop. Normal speech. Neck nontender. Lungs clear to auscultation bilaterally. Heart regular rate and rhythm no murmur. Chest wall nontender. Abdomen is soft and nontender. No peritoneal signs. She is moving all 4 extremities. They appear to be neurovascularly intact. She has 5 out of 5 cook helper fruit strength bilaterally. Dorsi plantar flexion is intact. Back exam nontender. Neurologically she is awake and alert. Has normal speech. No facial droop. Fingertip to nose is within normal limits. Her NIH score lying in bed is normal and 0. Test Results: CT of her brain without contrast is read by the radiologist reviewed by me shows no acute bleed. Chronic changes and atrophy. No acute stroke. CBC normal except for platelet count of 145,000. She has had low platelet counts before. BMP normal. She is on Coumadin her INR is subtherapeutic at 1.3. Her EKG is a sinus rhythm a rate of 86. Emergency Department Course and Treatment: She is complaining of feeling off balance with a recent fall and on Coumadin. A CT of her head and labs will be obtained. Treatment Plan: On repeat exam she is doing well at 08 40. She was able to stand and able to walk but just felt off balance. She has no signs of vertigo. In the light that the patient is off balance she may have had a stroke that is not showing up on CAT scan or this may be secondary to her recent head injury. She is comfortable being admitted and I spoke to her and her family about that. I spoke to the hospitalist and she will be admitted. Disposition: Admit Impression: Acute dizziness and a sensation of being off balance of uncertain etiology Recent fall and head injury Subtherapeutic anticoagulation on Coumadin with an INR of 1.3. Prior history of A. fib, prior history of DVT and PEs and history of atq-nkodocq-grjoywnxb diabetes This note was generated with [employer] software. It may contain incorrect words, spelling, and punctuation that were not noted in review of the chart prior to signing ED Disposition - Plan for ED Patient: Chief Complaint: Dizziness Referrals: Ruddy Corral Chi, MD [Primary Care Provider] - What to do if you have Problems For any increased pain, shortness of breath, bleeding, nausea or vomiting, chest pain, or any unexpected problems, contact your Primary Care Provider. Call [facility] ([phone]) or report to the closest Emergency Room. Call 911 if necessary. 04/20/17 1623 <Electronically signed by Fabián Rodas MD> Date Fabián Rodas MD Cosigner Signature (If Indicated): Date CC: Ruddy Corral MD HISTORY AND PHYSICAL Observed: 04/20/2017 Status: F Source: DERRY EXAM 2:52 PM [facility] REPOSITORY [facility] Medical Records Department [address] [place] [address] History and Physical 04/20/17 1444 MR#: [id number] Acct: [id number] Name: SUSANA WISEMAN Rep #: [id number] : 1955 61 From: Ubaldo Kilpatrick DO PCP: Ellis MD,Ruddy Chi Status: ADM [place] Y Location: [facility] [id number] Problem List (1) Dizziness Status: Acute (2) Atrial fibrillation Status: Chronic (3) Benign essential hypertension Status: Chronic (4) Dyslipidemia Status: Chronic (5) Morbid obesity Status: Chronic (6) Obstructive sleep apnea Status: Chronic (7) Hx of pulmonary embolus Status: Chronic History of Present Illness Date of Admission: 04/20/17 Chief Complaint: dizziness The patient is a 61 year old F awoke with dizziness. Pt attempted to ambulate in the halls and was unsteady. Symptoms improved when sitting, but worse when standing up. Never had this before. Sought attention in the ED. CT negative for any acute process. Also, complained of some transient numbness of her right cheek. [] Past Medical History Past Medical History (Chronic Problems): Chronic Problems Atrial fibrillation (Chronic) Benign essential hypertension (Chronic) Dyslipidemia (Chronic) Morbid obesity (Chronic) Status post radiofrequency ablation operation for arrhythmia (Chronic) Obstructive sleep apnea (Chronic) Hx of pulmonary embolus (Chronic) Allergies flecainide [Flecainide] Allergy (Verified 04/20/17 06:57) Rash Home Medications: Ambulatory Orders Medication Instructions Recorded Albuterol Inhaler [Ventolin Hfa 2 puff INHALATION Q4H PRN PRN 04/20/17 (SP)] Atorvastatin Calcium [Lipitor] 40 mg PO QHS 04/20/17 Budesonide/Formoterol 160/4.5 2 puff INHALATION BID 04/20/17 Surgical History: rotator cuff repair, - Smoking Status: Never smoker - *Family History Paternal History Items: Diabetes, Heart Disease Maternal History Items: No pertinent history Review of Systems Constitutional: Denies: Chills, Fever, Weight Change Eyes: Denies: Blurred vision, Double vision HEENT: Denies: Head Aches, Sinus Congestion, Sinus Drainage Cardiovascular: Denies: Chest Pain, Palpitations Respiratory: Denies: Cough, Shortness of breath at rest, Sputum production Gastrointestinal: Denies: Abdominal Pain, Nausea, Vomiting Genitourinary: Denies: Dysuria Musculoskeletal: Denies: Joint Pain, Joint Tenderness Skin: Denies: Rash, Wounds Neurological: Reports: Balance problems, Numbness - right cheek. Denies: Blurred vision, Double vision, Change in Speech, Slurred speech, Confusion, Focal weakness, Incoordination Psychiatric: Reports: Depression Hematologic/ Lymphatic: Reports: Hx of blood clot. Denies: Easy Bruising, Easy Bleeding VTE Information - Inpt Only VTE Present on Admission: Yes Patient Problems: Active and Suspected Problems Dizziness (Acute) - Physical Exam General: Alert, Cooperative, No apparent distress HEENT: Atraumatic, Normocephalic Neck: No Nodes, Thyroid Normal Size and Texture Lungs: Clear to auscultation, Normal air movement, No rhonchi, No wheeze Cardiovascular: Regular rate, Regular Rhythm, Normal S1, Normal S2, No murmurs Abdomen: Bowel Sounds Present, Soft, Non Tender, Non-Distended, No Hepato-splenomegaly Extremities: No edema, No Calf Tenderness Skin: No rashes, No breakdown Musculoskeletal: No Tenderness to Palpation of Joints or Extremities, No Muscle Wasting Neurological: Cranial nerves II-XII grossly intact, Neuro grossly intact, Motor Exam 5/5 strength throughout, Muscle tone normal, Sensory exam intact to light touch and pain, Coordination normal Psych/Mental Status: Normal Affect, Appropriate Vital Signs Temp Pulse Resp BP Pulse Ox 36.5 C L 86 18 139/69 H 97 04/20/17 13:50 04/20/17 13:50 04/20/17 13:50 04/20/17 13:50 04/20/17 13:50 Oxygen Delivery Method Room Air Weight: 117.7 kg Body Mass Index (BMI) 45.9 Clinical Impression(s) from Imaging Studies Brain CT 04/20/17 07:17 IMPRESSION: Chronic involutional changes of the brain. Electronically Signed: Tariq Kapoor MD at 8:22 EST Tel [phone], Service support , Laboratory Results - last 24 hr Assessment/Plan Active and Suspected Problems Dizziness (Acute) 1. dizziness * suspect peripheral, though cannot rule out central process * check MRI brain, MRA head and neck, 2d echo * if + CVA, consult neurology 2. VTE * INR subtherapuetic * add lovenox 3. h/o afib * on telemetry, monitor 4. DVT proph: anticoagulation Code Visit OBSV E AND M: [id number] Initial observation care L3 04/20/17 4312 <Electronically signed by Ubaldo Jopperi DO> Date Ubaldo Kilpatrick DO Cosigner Signature: Date (if applicable) CC: Ubaldo Kilpatrick DO; Ruddy Corral MD Signed MRA NECK WITH AND W/O Observed: 04/20/2017 Status: F Source: DERRY CONTRAST 2:07 PM [facility] REPOSITORY [facility] Imaging Services [address] [place] [address] MRA Neck WITH and W/O Contrast MR#: [id number] Acct: [id number] Name: SUSANA WISEMAN Rep #: [id number] : 1955 F 61 From: Corazon Holm MD PCP: Ellis KRUEGER,Ruddy Mclain Status: ADM [facility] Study: MRA Neck WITH and W/O Contrast Date of Exam: 04/20/17 Exam# [id number] Ordering Dr: Ubaldo Kilpatrick DO MRA Neck WO/W Contrast INDICATION: vertigo SINCE THIS A.M. COMPARISON: None TECHNIQUE: MR angiogram of the neck without and with IV contrast and 2-D vpdc-nn-vpnnip technique with 3-D reformatted images. FINDINGS: Study is slightly limited by motion and patient body habitus. Origin of the great vessels from the aortic arch appears within normal limits. Detailed evaluation of the origins of the common carotid arteries is not possible. There is positive flow related signal in the common carotid arteries bilaterally. There is no convincing evidence of significant luminal narrowing at the origins of the internal carotid arteries. Internal carotid arteries are normal and symmetric to the level of the skull base. Posterior circulation demonstrates positive flow related signal in the vertebral arteries, vertebral arteries appear codominant. MRI/MRA Neck WITH and W/O Contrast IMPRESSION: Slightly Limited study. No abnormality identified. at 1711 Reported and signed by: Corazon Holm MD Electronically Signed: Corazon Holm MD at 16:09 EST Tel , Service support , CC: Ubaldo Kilpatrick DO; Ruddy Corral MD Privacy Director: Signed MRA HEAD ONLY WITHOUT Observed: 04/20/2017 Status: F Source: DERRY CONTRAST 2:07 PM [facility] REPOSITORY [facility] Imaging Services [address] [place] [address] MRA Head ONLY without Contrast MR#: [id number] Acct: [id number] Name: SUSANA WISEMAN Rep #: [id number] : 1955 F 61 From: Corazon Holm MD PCP: Ellis KRUEGER,Ruddy Mclain Status: ADM [place] Study: MRA Head ONLY without Contrast Date of Exam: 04/20/17 Exam# [id number] Ordering Dr: Ubaldo Kilpatrick DO MRA Head W/O Contrast INDICATION: vertigo SINCE THIS A.M. COMPARISON: None TECHNIQUE: MR angiogram of the [place] and 3-D iung-zf-origql technique with 3-D reformatted images. FINDINGS: There is symmetric flow related signal in the intracranial portions of the internal carotid arteries and symmetric supply to the anterior middle cerebral arteries. Significant motion artifact is present with doubling artifact. There is normal flow related signal in the basilar artery, the basilar artery gives rise to both posterior cerebral arteries. MRI/MRA Head ONLY without Contrast IMPRESSION: Limited study due to motion. Evaluation for small aneurysm is not possible. No evidence of large vessel occlusion. at 1714 Reported and signed by: Corazon Holm MD Electronically Signed: Corazon Holm MD at 16:13 EST Tel , Service support , CC: Ubaldo Kilpatrick DO; Ruddy Corral MD Privacy Director: Signed BRAIN W/WO CONTRAST Observed: 04/20/2017 Status: F Source: RIYA 2:07 PM [facility] REPOSITORY [facility] Imaging Services [address] [place] [address] Brain W/WO Contrast MR#: [id number] Acct: [id number] Name: SUSANA WISEMAN Rep #: [id number] : 1955 F 61 From: Corazon Holm MD PCP: Ruddy Corral MD, Chi Status: ADM [place] Study: Brain W/WO Contrast Date of Exam: 04/20/17 Exam# [id number] Ordering Dr: Ubaldo Kilpatrick DO MR Brain WO/W Contrast INDICATION: vertigo SINCE THIS A.M. COMPARISON: None TECHNIQUE: Multiplanar multisequence MRI examination of the brain without and with IV contrast. 10 mL of gadolinium was given intravenously. FINDINGS: There is no evidence of restricted diffusion to suggest acute infarction. The ventricular system is normal in size and symmetric. Cortical sulci and basal cisterns are well seen. The supra and infratentorial brain parenchyma demonstrates normal signal, appearance is stable compared to the prior study from November 2012. There is no evidence of parenchymal hemorrhage, mass effect, midline shift, or abnormal extra-axial collection. Cerebellopontine angles are normal and symmetric. The mastoid air cells are clear. The paranasal sinuses are clear. After contrast administration, there is no abnormal enhancement identified. MRI/Brain W/WO Contrast IMPRESSION: Unremarkable, age-appropriate MRI examination of the brain. at 2116 Reported and signed by: Corazon Holm MD Electronically Signed: Corazon Holm MD at 20:14 EST Tel , Service support , CC: Ubaldo Kilpatrick DO; Ruddy Corral MD Privacy Director: Signed PROTHROMBIN TIME W/INR Collected: 04/20/2017 Status: F Source: RIYA 7:35 AM [facility] REPOSITORY TYPE CODE TESTS RESULT OUT OF RANGE REFERENCE UNITS LAB L300.4150 11.7-14.9 SECONDS High PROTIME 15.5 LAB L300.4200 Normal INR 1.3 Performed By: #### L300.3900 #### [facility] [address] [place], [address] BRAIN/HEAD WITHOUT Observed: 04/20/2017 Status: F Source: DERRY CONTRAST 7:21 AM [facility] REPOSITORY [facility] Imaging Services [address] [place] [address] Brain/Head without Contrast MR#: [id number] Acct: [id number] Name: SUSANA WISEMAN Rep #: [id number] : 1955 F 61 From: Tariq Kapoor MD PCP: Ellis KRUEGER,Ruddy Mclain Status: REG ER Study: Brain/Head without Contrast Date of Exam: 04/20/17 Exam# [id number] Ordering Dr: Fabián Rodas MD STUDY: CT BRAIN WITHOUT CONTRAST REASON FOR EXAM: Female, 61 years old. Off balance. Head injury. Patient is on Coumadin. RADIATION DOSAGE (If Supplied By Facility): CTDIvol = ( 44.99 ) mGy, DLP = ( 779.24 ) mGycm TECHNIQUE: Transaxial CT imaging of the brain was performed without administration of intravenous contrast material. Individualized dose optimization techniques were used for this CT. COMPARISON: Comparison is made with prior study December 02, 2014. FINDINGS: Normal soft tissue structures. Normal calvarium. There is mild cerebral atrophy with widening of the extra- axial spaces and ventricular dilatation. Normal white matter tracts of the cerebral hemispheres. Normal basal ganglia and thalami. Normal brainstem. Normal cerebellum. There is no intracranial hemorrhage. There are no findings of an acute ischemic infarction. Minimal mucosal thickening of the ethmoid sinuses. CT/Brain/Head without Contrast IMPRESSION: Chronic involutional changes of the brain. Electronically Signed: Tariq Kapoor MD at 8:22 EST Tel [phone], Service support , CC: Fabián Rodas MD; Ruddy Corral MD Privacy Director: Signed CBC W/DIFF, AUTOMATED Collected: 04/20/2017 Status: F Source: RIYA 7:10 AM [facility] REPOSITORY TYPE CODE TESTS RESULT OUT OF RANGE REFERENCE UNITS LAB L100.1000 4.4-11.0 K/mm3 Normal WBC 5.9 LAB L100.1200 4.2-5.4 M/mm3 Low RBC 3.91 LAB L100.1300 12.0-15.0 g/dl Normal HGB 13.1 LAB L100.1400 37-47 % Normal HCT 38.7 LAB L100.1500 81-99 fL Normal MCV 99.0 LAB L100.1600 27.0-32.0 pg High MCH 33.5 LAB L100.1700 32-36 g/gl Normal MCHC 33.9 LAB L100.1810 11.6-14.6 % Normal RDW CV 13.9 LAB L100.1820 35.1-43.9 fl High RDW SD 48.9 LAB L100.1900 150-450 K/mm3 Low PLT 145 LAB L100.2000 6.2-12.0 fl Normal MPV 9.4 LAB L100.2100 47-70 % Normal NEUT% 54.9 LAB L100.2200 19-41 % Normal LY% 31.1 LAB L100.2300 0-10 % High MONO% 11.8 LAB L100.2400 0-5 % Normal EO% 1.5 LAB L100.2500 0-1 % Normal BASO% 0.5 LAB L100.2550 0.0-0.9 % Normal IM GRAN % 0.200 Result Comment: IG% - Immature Granulocytes (promyelocytes, myelocytes and metamyelocytes) > 1% indicates that a LEFT SHIFT is Present. LAB L100.2620 2.0-7.7 X10 3/uL Normal Absolute Neut 3.3 LAB L100.2720 0.83-4.51 X10 3/ul Normal Absolute Lymph 1.85 Performed By: #### L100.0100 #### [facility] [address] [place], [address] BASIC METABOLIC Collected: 04/20/2017 Status: F Source: RIYA PROFILE (BMP) 7:10 AM [facility] REPOSITORY TYPE CODE TESTS RESULT OUT OF RANGE REFERENCE UNITS LAB L501.0100 74-106 mg/dL High GLU 137 Result Comment: Fasting Glucose result greater than or equal to 126 mg/dL suggests DIABETES MELLITUS per A.D.A. criteria. Please note revised GLUCOSE reference range effective 2017. LAB L501.1000 7-18 mg/dL Normal BUN 15 LAB L501.1100 0.55-1.02 mg/dL Normal CREAT,SERUM 0.75 Result Comment: The validity of the calculated GFR AND GFRAA in patients over 70 years has not been determined. Clinical correlation is essential. LAB L501.1110 >60 mL/min Normal EST GFR 83 Result Comment: Non- GFR Calc LAB L501.1115 >60 mL/min Normal EST GFR - AA 100 Result Comment: GFR Calc LAB L501.1255 ml/min Normal Estimated CRCL 63.51 LAB L501.1300 10-20 RATIO Normal BUN/CRE 20.0 LAB L501.2200 8.5-10 mg/dL Low .1 CA 8.4 LAB L501.5300 136-14 mmol/L Normal 5 NA 142 LAB L501.5600 3.5-5. mmol/L Normal 1 K 4.5 Result Comment: Moderate Hemolysis, Result may be falsely increased. LAB L501.5900 98-107 mmol/L High CL 109 LAB L501.6100 21.0-32.0 mmol/L Normal CO2 24.0 LAB L501.6200 5-15 Normal 9 GAP Performed By: #### L500.2500 #### [facility] [address] [place], [address] ALLERGIES ALLERGIES DATE TYPE / CODE NAME / CODE REACTION SEVERITY SOURCE 02/13/2018 Drug flecainide/F Rash Unknown [facility] Allergy/4160 [id number]( Hospital 27875(SNOMED NORM) Repository CT) ENCOUNTERS ENCOUNTERS ADMIT/DISCHARGE ACCOUNT ADMITTING ENCOUNTER LOCATION SOURCE NUMBER CLASS 02/13/2018/ [id number] Ambulatory [place] 8 8 [facility] Hospital ing:SDCRoom: Repository AC16 02/12/2018 [id number] Ambulatory [place] [facility] 6 [facility] Hospital ing:RAD Repository 02/11/2018/ [id number] Emergency [place] 8 5 [facility] Hospital ing:ED Repository 01/30/2018 [id number] Ambulatory [place] 5 [facility] Hospital ing:PSN Repository 12/29/2017 [id number] Ambulatory [place] 4 [facility] Hospital ing:OPBI Repository 10/30/2017 [id number] Ambulatory [place] 1 [facility] Hospital ing:HPRAD Repository 10/30/2017/ [id number] Ambulatory BMSBuilding:B [place] 8 3 [facility] Hospital Repository 09/20/2017 [id number] Ambulatory [place] 6 [facility] Hospital ing:POLAB3 Repository 09/09/2017/ [id number] Emergency [place] 8 6 [facility] Hospital ing:ED Repository 08/16/2017 [id number] Ambulatory [place] 7 [facility] Hospital ing:HPRAD Repository 08/16/2017/ [id number] Ambulatory BMSBuilding:B Riya 8 0 [facility] Repository 07/11/2017 [id number] Ambulatory [place] 3 [facility] Hospital ing:LAB Repository 05/18/2017 [id number] Ambulatory BMSBuilding:B [place] 5 [facility] Repository 05/16/2017 [id number] Ambulatory Riya Riya 7 [facility] Hospital ing:RAD Repository 04/20/2017/ [id number] Ubaldo Kilpatrick Ambulatory [place] 8 6 [facility] Hospital ing:PCURoom: Repository [id number]: 1 04/20/2017 [id number] Ubaldo Kilpatrick Ambulatory BMSBuilding:B [place] 8 [facility] Repository 04/20/2017 [id number] Jopperi, Ubaldo Ambulatory BMSBuilding:B [place] 9 [place].[facility] Repository 04/20/2017/ [id number] Ambulatory BMSBuilding:W [place] 8 1 Man [facility] Repository PAYERS PAYERS ENCOUNTER GUARANTOR PAYER SUBSCRIBER SOURCE 02/13/2018 SUSANA K Primary SUSANA K [place] [id number] NATHANIEL Insurance:MEDICARE BYRDDOB: [facility] [address] PART A [facility] [id number] [address]6638Hns: Number: Repository [id number] (HP) Date:2018-02-12 02/13/2018 Secondary SUSANA K [place] [facility] cy Number: [id number] Hospital [id number] Repository Date:5888-82-86[address], [place] [address]SN: 02/13/2018 Tertiary NOT GIVENUNK [place] Insurance:SELF PAY [facility] Number: Effective Repository Date:2018-02-12 02/12/2018 SUSANA K Primary SUSANA K [place] [id number] NATHANIEL Insurance:MEDICARE BYRDDOB: [facility] [address] [place] PART A [facility] [id number][facility] [address]Arc: Number: Repository [id number] (HP) Date:2018-02-12 02/12/2018 Secondary SUSANA K [place] Insurance[facility] BY[facility]: [facility] cy Number: [id number] Hospital [id number] Repository Date:9009-60-31[address], [place] [address]AM: 02/12/2018 Tertiary NOT GIVENUNK [place] Insurance:SELF PAY [facility] Number: Effective Repository Date:2018-02-12 02/11/2018 SUSANA K Primary SUSANA K [place] [id number] NATHANIEL Insurance:MEDICARE BYRDDOB: [facility] [address] [place], PART A [facility] [id number]-Na[facility] [address]Zoq: Number: Repository [id number] (HP) Date:2018-02-11 02/11/2018 Secondary SUSANA K [place] Insurance:[place] BYRDDOB: Community cy Number: [id number] Hospital [id number] Repository Date:3240-87-28[address]FC, [place] [address]PS: 02/11/2018 Tertiary NOT GIVENUNK [place] Insurance:SELF PAY [facility] Number: Effective Repository Date:2018-02-11 01/30/2018 SUSANA K Primary SUSANA K [place] [id number] NATHANIEL Insurance:MEDICARE BYRDDOB: Community [address] PART A [facility] [id number]-Na[facility] 87251Bcl: Number: Repository [id number] (HP) Date:2017-10-31 01/30/2018 Secondary SUSANA K [place] Insurance:[place] BYRDDOB: Community cy Number: [id number] Hospital [id number] Repository Date:4590-13-28[address], [place] [address]RD: 01/30/2018 Tertiary NOT GIVENUNK [place] Insurance:SELF PAY [facility] Number: Effective Repository Date:2017-10-31 12/29/2017 SUSANA K Primary SUSANA K [place] [id number] NATHANIEL Insurance:MEDICARE BYRDDOB: Community [address] PART A [facility] [id number]-[facility] [address]Hka: Number: Repository [id number] (HP) Date:2017-11-16 12/29/2017 Secondary SUSANA K [place] Insurance:[place] BYRDDOB: Community cy Number: [id number] Hospital [id number] Repository Date:5188-73-05[address]DQSNVP, [place] [address]CD: 12/29/2017 Tertiary NOT GIVENUNK [place] Insurance:SELF PAY [facility] Number: Effective Repository Date:2017-11-16 10/30/2017 SUSANA K Primary SUSANA K [place] [id number] NATHANIEL Insurance:MEDICARE BYRDDOB: Community [address] PART A [facility] [id number]-[facility] [address]Czw: Number: Repository [id number] (HP) Date:2017-10-30 10/30/2017 Secondary SUSANA K [place] Insurance:[place] BYRDDOB: Community cy Number: [id number] Hospital [id number] Repository Date:5749-28-32[address], [place] [address]CI: 10/30/2017 Tertiary NOT GIVENUNK Ri[place] Insurance:SELF PAY [facility] Number: Effective Repository Date:2017-10-30 10/30/2017 SUSANA K Primary SUSANA K [place] [id number] NATHANIEL Insurance:MEDICARE BYRDDOB: Community [address] PART A [facility] [id number]-Na[facility] [address]Ywx: Number: Repository [id number] (HP) Date:2017-10-15 10/30/2017 Secondary SUSANA K [place] Insurance:[place] BYRDDOB: Community cy Number: [id number] Hospital [id number] Repository Date:8932-72-07[address], [place] [address]AG: 10/30/2017 Tertiary NOT GIVENUNK [place] Insurance:SELF PAY [facility] Number: Effective Repository Date:2017-10-30 09/20/2017 SUSANA K Primary SUSANA K [place] [id number] NATHANIEL Insurance:MEDICARE BYRDDOB: Community [address] PART A [facility] [id number]-Na-O-Dith-[facility] 69913Qjq: Number: Repository [id number] (HP) Date:2017-09-20 09/20/2017 Secondary SUSANA K [place] Insurance:[place] BYRDDOB: Community cy Number: [id number] Hospital [id number] Repository Date:5359-35-63[address]Z [address], [place] [address]DJ: 09/20/2017 Tertiary NOT GIVENUNK [place] Insurance:SELF PAY [facility] Number: Effective Repository Date:2017-09-20 09/09/2017 SUSANA K Primary SUSANA K [place] [id number] NATHANIEL Insurance:MEDICARE BYRDDOB: Community [address] [facility] [id number]-Na-O-Dith-[facility] 18154Gpg: Number: Repository [id number] (HP) Date:2017-09-09 09/09/2017 Secondary SUSANA K [place] Insurance:MELISSAVAPoli BYRDDOB: Community cy Number: [id number] Hospital [id number] Repository Date:4359-44-85[address], [place] [address]RE: 09/09/2017 Tertiary NOT GIVENUNK [place] Insurance:SELF PAY [facility] Number: Effective Repository Date:2017-09-09 08/16/2017 SUSANA K Primary SUSANA K [place] [id number] NATHANIEL Insurance:MEDICARE BYRDDOB: Community [address] PART [address] [facility] [id number]-Na-O-Dith-[facility] 00585Huh: Number: Repository [id number] (HP) Date:2017-08-16 08/16/2017 Secondary SUSANA K [place] Insurance:[place] BYRDDOB: Community cy Number: [id number] Hospital [id number] Repository Date:7868-58-93[address], [place] [address]SG: 08/16/2017 Tertiary NOT GIVENUNK [place] Insurance:SELF PAY [facility] Number: Effective Repository Date:2017-08-16 08/16/2017 SUSANA K Primary SUSANA K [place] [id number] NATHANIEL Insurance:MEDICARE BYRDDOB: Community [address] PART A [facility] [id number]-Na-[facility] 688[address]Lyf: Number: Repository [id number] (HP) Date:2017-07-17 08/16/2017 Secondary SUSANA K [place] Insurance:[place] BYRDDOB: Community cy Number: [id number] Hospital [id number] Repository Date:0432-42-12[address], [place] [address]RM: 08/16/2017 Tertiary NOT GIVENUNK [place] Insurance:SELF PAY [facility] Number: Effective Repository Date:2017-08-16 07/11/2017 SUSANA K Primary SUSANA K [place] [id number] NATHANIEL Insurance:MEDICARE BYRDDOB: [facility] [id number]-Na-O-Dith-[facility] [address]Xea: Number: Repository [id number] (HP) Date:2017-07-11 07/11/2017 Secondary SUSANA K [place] Insurance:[place] BYRDDOB: Community cy Number: [id number] Hospital [id number] Repository Date:0691-82-91[address], [place] [address]KW: 07/11/2017 Tertiary NOT GIVENUNK [place] Insurance:SELF PAY [facility] Number: Effective Repository Date:2017-07-11 05/18/2017 SUSANA K Primary SUSANA K [place] [id number] NATHANIEL Insurance:[place] BYRDDOB: Community [address], cy Number: [id number]-Na-O-D[facility] [address]Oqu: [id number] Repository Date:0768-08-77[address], [place] [address]IM: 05/18/2017 Secondary SUSANA K [place] Insurance:MEDICARE BYRDDOB: Community PART A [facility] [id number] Hospital Number: Repository [id number] Date:2017-01-31 05/18/2017 Tertiary NOT GIVENUNK [place] Insurance:SELF PAY [facility]: Effective Repository Date:2017-01-31 05/16/2017 SUSANA K Primary SUSANA K [place] [id number] NATHANIEL Insurance:MEDICARE BYRDDOB: Community [address] PART A [facility] [id number]-Na-O-Dith-[facility] 51717Jrt: Number: Repository [id number] () Date:2017-05-16 05/16/2017 Secondary SUSANA K [place] Insurance:[place] BYRDDOB: Community cy Number: [id number] Hospital [id number] Repository Date:2672-57-15[address], [place] [address]PL: 05/16/2017 Tertiary NOT GIVENUNK [place] Insurance:SELF PAY [facility] Number: Effective Repository Date:2017-05-16 04/20/2017 SUSANA K Primary SUSANA K [place] [id number] NATHANIEL Insurance:MEDICARE BYRDDOB: Community [address] [facility] [id number]-Na-O-Dith-[facility] 807[address]Acl: Number: Repository [id number] (HP) Date:2017-04-20 04/20/2017 Secondary SUSANA K [place] Insurance:[place] BYRDDOB: Community cy Number: [id number] Hospital [id number] Repository Date:8479-75-65[address], [place] [address]ZL: 04/20/2017 Tertiary NOT GIVENUNK Riya Insurance:SELF PAY [facility] Number: Effective Repository Date:2017-04-20 04/20/2017 SUSANA K Primary SUSANA K [place] [id number] NATHANIEL Insurance:MEDICARE BYRDDOB: Community [address] [facility] [id number]-Na-[facility]-Dith-[facility] 82294Hvv: Number: Repository [id number] (HP) Date:2017-04-20 04/20/2017 Secondary SUSANA K [place] Insurance:[place] BYRDDOB: Community cy Number: [id number] Hospital [id number] Repository Date:3823-92-01[address]X[place]D, [place] [address]VW: 04/20/2017 Tertiary NOT GIVENUNK Riya Insurance:SELF PAY [facility] Number: Effective Repository Date:2017-04-20 04/20/2017 SUSANA K Primary SUSANA K [place] [id number] NATHANIEL Insurance:MEDICARE BYRDDOB: Community [address] [facility] [id number]-Na-[facility] 03[address]Rmo: Number: Repository [id number] (HP) Date:2017-04-20 04/20/2017 Secondary SUSANA K [place] Insurance:[place] BYRDDOB: Community cy Number: [id number] Hospital [id number] Repository Date:9175-42-81[address], [place] [address]QG: 04/20/2017 Tertiary NOT GIVENUNK [place] Insurance:SELF PAY [facility] Number: Effective Repository Date:2017-04-20 04/20/2017 SUSANA K Primary SUSANA K [place] [id number] NATHANIEL Insurance:MEDICARE BYRDDOB: Community [address] [facility] [id number]-Na-[facility]-D[facility] 92845Gck: Number: Repository [id number] (HP) Date:2017-04-20 04/20/2017 Secondary SUSANA K [place] Insurance:[place] BYRDDOB: Community cy Number: [id number] Hospital [id number] Repository Date:3615-48-47[address]H, [place] [address]TN: 04/20/2017 Tertiary NOT GIVENJENNIFER Ritter Insurance:SELF PAY [facility] Number: Effective Repository Date:2017-04-20
== END 2018-02-11 14:11 | disposition home or self-care (01) ==
PROVIDERS: Emergency Provider Emergency Medicine; Family Provider Family Medicine Geriatric Medicine; PCP Family Medicine Geriatric Medicine
DX: N13.2 Hydronephrosis with renal and ureteral calculous obstruction (principal); E11.9 Type 2 diabetes mellitus without complications; J44.9 Chronic obstructive pulmonary disease, unspecified; I48.91 Unspecified atrial fibrillation; Z86.718 Personal history of other venous thrombosis and embolism; Z79.01 Long term (current) use of anticoagulants; Z87.442 Personal history of urinary calculi; Z86.711 Personal history of pulmonary embolism
CPT/HCPCS: 74176; 80048; 81001; 85025; 85610; 96374; 96375; 96376; 99285; A4216; J2405

== ENCOUNTER → 2018-02-12 12:37 | Outpatient (CLI) | payer MEDICARE, OTHER, SELFPAY ==
[2018-02-11 10:25] VITALS: BMI 38.7
--- NOTE | 2018-02-12 12:40 | RAD_ITS ---
STUDY: X-RAY - ABDOMEN/PELVIS REASON FOR EXAM: Female, 62 years old. Left-sided kidney stone TECHNIQUE: Two AP supine views of the abdomen and pelvis. COMPARISON: 09/09/2017 FINDINGS: There is a moderate amount of colonic fecal material. There is no demonstrated free abdominal air. Again noted is left lower pole renal stone measuring 9.5 mm. Normal soft tissue structures. There are diffuse degenerative changes of the visualized lumbar spine. RAD/Abdomen Single View IMPRESSION: No evidence of obstruction. Stable left lower pole nephrolith Electronically Signed: Jesus Alberto Newton DO at 13:40 EST Tel , Service support ,
--- OUTSIDE RECORDS SUMMARY | 2018-05-16 22:43 | XMS RPT_ITS ---
:1955 Author Organization OHIP Support Name Relationship Address Phone CAYETANO WISEMAN Unavailable [address] + [address] [place] [address] CURRAN, SHAD Unavailable Unavailable + [place] [address] D Unavailable Unavailable Unavailable CAYETANO WISEMAN Unavailable [address] + [address] [place] [address] CURRAN, SHAD Unavailable Unavailable + [place] [address] D Unavailable Unavailable Unavailable CAYETANO WISEMAN Unavailable [address] + [address] [place] [address] CURRAN, SHAD Unavailable Unavailable + [place] [address] D Unavailable Unavailable Unavailable CAYETANO WISEMAN Unavailable [address] + [address] [place] [address] CURRAN, SHAD Unavailable Unavailable + [place] [address] D Unavailable Unavailable Unavailable CAYETANO WISEMAN Unavailable [address] + [address] [place] [address] CURRAN, SHAD Unavailable Unavailable + D Unavailable Unavailable Unavailable CAYETANO WISEMAN Unavailable [address] + [address] [place] [address] CURRAN, SHAD Unavailable [address] + [address] [place] [address] D Unavailable Unavailable Unavailable CAYETANO WISEMAN Unavailable [address] + [address] [place] [address] CURRAN, SHAD Unavailable [address] + [address] [place] [address] D Unavailable Unavailable Unavailable CAYETANO WISEMAN Unavailable [address] + [address] [place] [address] CURRAN, SHAD Unavailable [address] + [address] [place] [address] D Unavailable Unavailable Unavailable CAYETANO WISEMAN Unavailable [address] + [address] [place] [address] CURRAN, SHAD Unavailable [address] + [address] [place] [address] D Unavailable Unavailable Unavailable CAYETANO WISEMAN Unavailable [address] + [address] [place] [address] CURRAN, SHAD Unavailable [address] + [address] [place] [address] D Unavailable Unavailable Unavailable CAYETANO WISEMAN Unavailable [address] + [address] [place] [address] CURRAN, SHAD Unavailable [address] + [address] [place] [address] D Unavailable Unavailable Unavailable CAYETANO WISEMAN Unavailable [address] + [address] [place] [address] CURRAN, SHAD Unavailable [address] + [address] [place] [address] D Unavailable Unavailable Unavailable CAYETANO WISEMAN Unavailable [address] + [address] [place] [address] CURRAN, SHAD Unavailable [address] [place] [address] D Unavailable Unavailable Unavailable CAYETANO WISEMAN Unavailable [address] + [address] [place] [address] CURRAN, SHAD Unavailable [address] [place] [address] D Unavailable Unavailable Unavailable CAYETANO WISMEAN Unavailable [address] + [address] [place] [address] CURRAN, SHAD Unavailable [address] + [address] [place] [address] D Unavailable Unavailable Unavailable CAYETANO WISEMAN Unavailable [address] + [address] [place] [address] LUCAS LIUE Unavailable [address] + [address] [place] [address] D Unavailable Unavailable Unavailable CAYETANO WISEMAN Unavailable [address] + [address] [place] [address] LUCAS LIUE Unavailable [address] + [address] [place] [address] D Unavailable Unavailable Unavailable CAYETANO WISEMAN Unavailable [address] + [address] [place] [address] LUCAS LIUE Unavailable [address] + [address] [place] [address] D Unavailable Unavailable Unavailable Care Team Providers Name Role Phone Ellis, Ruddy Chi Primary Care Unavailable Fabián Rodas Attending Unavailable JasielTreu Attending Unavailable Ellis, Ruddy Chi Primary Care Unavailable JasielTrue Referring Unavailable JasielTrue Attending Unavailable Jasiel Homero Referring Unavailable Ellis, Ruddy Chi Primary Care Unavailable Ellis, Ruddy Chi Primary Care Unavailable Jopperi, Ubaldo Admitting Unavailable Jopperi, Ubaldo Attending Unavailable Jopperi, Ubaldo Admitting Unavailable Jopperi, Ubaldo Attending Unavailable Ellis, Ruddy Chi Primary Care Unavailable Jopperi, Ubaldo Consulting Unavailable Jopperi, Ubaldo Admitting Unavailable Jopperi, Ubaldo Attending Unavailable Ellis, Ruddy Chi Primary Care Unavailable Jopperi, Ubaldo Consulting Unavailable BasaliTienman Attending Unavailable Ellis, Ruddy Chi Primary Care Unavailable Tulio Licea Attending Unavailable Ellis, Ruddy Chi Referring Unavailable Jopperi, Ubaldo Attending Unavailable BasaliTienman Attending Unavailable Basali, Ayman Referring Unavailable Ellis, Ruddy Chi Primary [...] N20.0 - Calculus of Fabián Rodas Active [facility] N20.0(ICD-10) Hospital Repository 02/06/2018 Unknown Z12.31 - Encounter Ellis, Ruddy Chi Active [place] for screening [facility] mammogram for Hospital malignant neoplasm Repository of breast / Z12.31(ICD-10) 10/30/2017 Unknown M79.641 - Pain in Manish Active [facility] right hand / [facility] M79.641(ICD-10) Hospital Repository 10/30/2017 Unknown 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, right [facility] upper limb / Hospital G56.21(ICD-10) Repository 08/16/2017 Unknown M25.511 - Pain in Jesse Lemus Active [facility] right shoulder / [facility] M25.511(ICD-10) Hospital Repository 07/11/2017 Unknown F11.20 - Opioid BasalMontserrat nunez Active [place] dependence, Community 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 / Hospital F11.20(ICD-10) Repository 05/17/2017 Unknown I48.2 - Chronic JoppUbaldo mosqueda Active [facility] atrial fibrillation [facility] / I48.2(ICD-10) Hospital Repository PROCEDURES PROCEDURES No Procedure Records FoundRESULTS RESULTS BEDSIDE GLUCOSE Collected: 02/13/2018 Status: F Source: [place] 3:27 PM [facility] HOSPITAL REPOSITORY TYPE CODE TESTS RESULT OUT OF REFERENCE UNITS RANGE LAB L501.080 70-110 mg/dL High BEDSIDE GLU 126 Result Comment: MANAGEMENT OF PATIENT CARE PER NURSING PROTOCOL Performed By: #### L501.080 #### [facility] Point of Care [address] [place] [address] OPERATIVE REPORT Observed: 02/13/2018 Status: F Source: [place] 3:03 PM [facility] REPOSITORY [facility] Medical Records Department [address] [place] [address] Operative Report 02/13/18 1501 MR#: [id number] Acct: [id number] Name: SUSANA WISEMAN Rep #: [id number] : 1955 62 From: True Weathers MD PCP: Ruddy Corral MD, Chi Status: REG [facility] Location: [place] [address] Report of Operation Date of Procedure: 02/13/18 [...] went into the bladder with a 21 Mohawk rigid cystoscopy urethroscope the pablo cystoscopy 3070 [...] No VTE Mechan Device Prophylaxis: SCD's 02/13/18 1500 <Electronically signed by True Weathers MD> Date True Weathers MD CC: True Weathers MD; Ruddy Corral MD Signed DISCHARGE INSTRUCTION Observed: 02/13/2018 Status: F Source: [place] 2:59 PM [facility] REPOSITORY [facility] Medical Records Department [address] [place] [address] Instructions for Home/Discharge Instructions 02/13/18 1459 MR#: [id number] Acct: [id number] Name: SUSANA WISEMAN Rep #: [id number] : 1955 62 From: True Weathers MD [...] 02/13/2018 Status: F Source: [place] 12:33 PM [facility] REPOSITORY TYPE CODE TESTS RESULT OUT OF REFERENCE UNITS RANGE LAB L501.080 70-110 mg/dL High BEDSIDE GLU 128 Result Comment: MANAGEMENT OF PATIENT CARE PER NURSING PROTOCOL Performed By: #### L501.080 #### [facility] Point of Care [address] [place] [address] PROTIME W/INR Collected: 02/13/2018 Status: F Source: [place] FINGER[place]ICK 12:03 PM [facility] REPOSITORY TYPE CODE TESTS RESULT OUT OF REFERENCE UNITS RANGE LAB L9200.1001 11.9-14.4 SEC High PROTIME ISTAT 22.9 Result Comment: Reference Range 11.9 - 14.4 LAB L9200.2000 Normal INR ISTAT 2.00 Result Comment: Critical Value > 3.5 Performed By: #### L9200.0000 #### [facility] Point of Care [address] [place] [address] ABDOMEN SINGLE VIEW Observed: 02/12/2018 Status: F Source: [place] 12:40 PM [facility] HOSPITAL REPOSITORY [facility] Imaging Services [address] [place] [address] Abdomen Single View MR#: [id number] Acct: [id number] Name: SUSANA WISEMAN Rep #: [id number] : 1955 F 62 From: Jesus Alberto Newton DO PCP: Ruddy Corral MD, Chi Status: REG CLI Study: Abdomen Single View Date of Exam: 02/12/18 Exam# [id number] Ordering Dr: True Weathers MD STUDY: X-RAY [...] CC: True Weathers MD; Ruddy Corral MD Cotton Ginner: Signed DISCHARGE INSTRUCTION Observed: 02/11/2018 Status: F Source: [place] 4:29 PM [facility] HOSPITAL REPOSITORY [facility] Medical Records Department [address] [place] [address] Discharge Instruction 02/11/18 1357 MR#: [id number] Acct: [id number] Name: SUSANA WISEMAN Rep #: [id number] : 1955 62 From: Fabián Rodas MD [...] problems, contact your Primary Care Provider. Call [employer] Registry ([phone]) or report to the closest Emergency Room. Call 911 if necessary. 02/11/18 1628 <Electronically signed by Fabián Rodas MD> Date Fabián Rodas MD Cosigner Signature (If Indicated): Date CC: Ruddy Corral MD EMERGENCY DEPARTMENT Observed: 02/11/2018 Status: F Source: [place] SUMMARY 4:29 PM [facility] Medical Records Department [address] [place] [address] Emergency Department Summary 02/11/18 1127 MR#: [id number] Acct: [id number] Name: SUSANA WISEMAN Rep #: [id number] : 1955 62 From: Fabián Rodas MD [...] for which she is on Coumadin and qpo-afpfoxe-kivleremr diabetes. Patient states that 6 AM this [...] on Coumadin This note was generated with [employer] dictation software. It may contain incorrect words, [...] your Primary Care Provider. Call [facility] ([phone]) or report to the closest Emergency Room. Call 911 if necessary. 02/11/18 3624 <Electronically signed by Fabián Rodas MD> Date Fabián Rodas MD Cosigner Signature (If Indicated): Date CC: Ruddy Corral MD URINALYSIS, COMPLETE Collected: 02/11/2018 Status: F Source: [place] 12:00 PM [facility] REPOSITORY Order Comment: How was Urine Obtained? [...] MUCUS, URINE Performed By: #### L400.0001 #### [facility] [address] [place], [address] ABDOMEN/PELVIS WITHOUT Observed: 02/11/2018 Status: F Source: [place] CONT 11:27 AM [facility] REPOSITORY [facility] Imaging Services [address] [place] [address] Abdomen/Pelvis without Cont MR#: [id number] Acct: [id number] Name: SUSANA WISEMAN Rep #: [id number] : 1955 F 62 From: Kevan Faulkner MD PCP: Ellis KRUEGER,Ruddy Mclain Status: REG ER Study: Abdomen/Pelvis without Cont Date of Exam: 02/11/18 Exam# [id number] Ordering Dr: Fabián Rodas MD STUDY: CT [...] bowel obstruction. The appendix is normal. 3. Tvks-bh-ngeupbuj abdominal atherosclerotic calcific plaquing. There is no demonstrated aneurysm, but this portends some risk for future cardiovascular event, Abdominal Aortic Calcific Deposits Are an Important Predictor of Vascular Morbidity and Mortality; Richard Grier et al. Circulation, Apr 2000;103:4715-1410. 4. Degenerative changes of the spine and left sacroiliac joint. Electronically Signed: Kyle Faulkner MD at 12:39 EST , Service support , CC: Fabián Rodas MD; Ruddy Corral MD Cotton Ginner: Signed CBC W/DIFF, AUTOMATED Collected: 02/11/2018 Status: F Source: [place] 10:40 AM [facility] REPOSITORY TYPE CODE TESTS RESULT OUT [...] Lymph 1.63 Performed By: #### L100.0100 #### [facility] [address] [place], [address] BASIC METABOLIC Collected: 02/11/2018 Status: F Source: [place] PROFILE (BMP) 10:40 AM [facility] REPOSITORY TYPE CODE TESTS RESULT OUT [...] 7 GAP Performed By: #### L500.2500 #### [facility] [address] [place], [address] PROTHROMBIN TIME W/INR Collected: 02/11/2018 Status: F Source: [place] 10:40 AM [facility] REPOSITORY TYPE CODE TESTS RESULT OUT OF RANGE REFERENCE UNITS LAB L300.4150 11.7-14.9 SECONDS High PROTIME 22.9 LAB L300.4200 Normal INR 2.0 Performed By: #### L300.3900 #### [facility] [address] [place], [address] NCS AND/OR EMG Observed: 01/30/2018 Status: F Source: [place] PATIENT 3:18 PM [facility] REPOSITORY [facility] Pulmonary Services/Neurology [address] [place] [address] MR#: [id number] Acct: [id number] Name: SUSANA WISEMAN Rep #: [id number] : 1955 62 From: Jatin Espinoza MD [...] MD Date Dictated: 01/30/181415 Date Transcribed: 01/30/181415 Cotton Ginner: AA Signed SCREENING MAMM (CAD), Observed: 12/29/2017 Status: F Source: [facility] 7:48 AM [facility] REPOSITORY [facility] Imaging Services [address] [place] [address] SCREENING MAMM (CAD), BILAT MR#: [id number] Acct: [id number] Name: SUSANA WISEMAN Rep #: [id number] : 1955 F 62 From: Tariq Kapoor MD PCP: Ruddy Corral MD, Chi Status: REG CLI Study: SCREENING MAMM (CAD), BILAT Date of Exam: 12/29/17 Exam# [id number] Ordering Dr: Ruddy Corral MD MAMMOGRAPHY - [...] delay biopsy of a clinically suspicious abnormality. [id number] Electronically Signed: Tariq Kapoor MD at 9:34 EST Tel [phone], Service support , CC: Ruddy Corral MD Cotton Ginner: Signed ORTHOPEDIC VISIT Observed: 10/30/2017 Status: F Source: [place] REPORT 10:31 AM [facility] REPOSITORY [facility] Orthopa[facility]ics [facility] Sports Medicine [address] [place] [address] OFFICE VISIT Date of Service: 10/30/17 MR#: [id number] Acct: [id number] Name: WISEMANJALEN CALDERAFaye De Leon Rep #: [id number] : 1955 Provider: Amanda Hammond DO Age/Sex: 61/F Location: [facility] Status: Signed Intake Intake Visit Reasons: right [...] mg PO .COMPLEX 05/16/17 [History Confirmed 09/09/17] [facility] Medical History Hyperlipidemia (Chronic) Atrial fibrillation (Chronic) [...] 10/30/2017 Status: F Source: [place] 9:25 AM [facility] REPOSITORY [facility] Imaging Services [address] [place] [address] Hand Min 3 Views MR#: [id number] Acct: [id number] Name: SUSANA WISEMAN Rep #: [id number] : 1955 F 61 From: Rafael Camerno MD PCP: Ruddy Corral MD, Chi Status: REG CLI Study: Hand Min 3 Views Date of Exam: 10/30/17 Exam# [id number] Ordering Dr: Amanda Hammond DO STUDY: X-RAY [...] CC: Amanda Hammond DO; Ruddy Corral MD Cotton Ginner: Signed CBC W/DIFF, AUTOMATED Collected: 09/20/2017 Status: F Source: [place] 11:53 AM [facility] REPOSITORY TYPE CODE TESTS RESULT OUT [...] Lymph 1.24 Performed By: #### L100.0100 #### [facility] [address] [place], [address] COMPREHENSIVE METABOLIC Collected: 09/20/2017 Status: F Source: [facility] 11:53 AM [facility] REPOSITORY TYPE CODE TESTS RESULT OUT [...] 7 Performed By: #### L500.4050, L501.9520 #### [facility] [address] [place], [place], [address] THYROID STIM HORMONE Collected: 09/20/2017 Status: F Source: [place] (T[facility]) 11:53 AM [facility] REPOSITORY TYPE CODE TESTS RESULT OUT OF RANGE REFERENCE UNITS LAB L501.9520 0.358-3.74 uIU/mL Normal TSH 0.96 Performed By: #### L500.4050, L501.9520 #### [facility] [address] [place], [address] HEPATITIS C ANTIBODIES Collected: 09/20/2017 Status: F Source: [place] 11:53 AM [facility] REPOSITORY TYPE CODE TESTS RESULT OUT OF RANGE REFERENCE UNITS LAB L3100.0650 0.0-0.9 s/co ratio Normal HEP C AB 0.1 Result Comment: Negative: < 0.8 Indeterminate: 0.8 - 0.9 Positive: > 0.9 The CDC recommends that a positive HCV antibody result be followed up with a HCV Nucleic Acid Amplification test (409675). Performed at: [facility] [address] [id number] Sheet Tailer: Darrell Pavon PhD, Phone: [phone] Performed By: #### L3100.0625 #### [facility] (refer to report for specific site) refer to report for address and phone number EMERGENCY DEPARTMENT Observed: 09/09/2017 Status: F Source: [place] SUMMARY 11:47 PM [facility] REPOSITORY [facility] Medical Records Department [address] [place] [address] Emergency Department Summary 09/09/17 1731 MR#: [id number] Acct: [id number] Name: SUSANA WISEMAN Rep #: [id number] : 1955 61 From: Fabián Rodas MD [...] knee contusion This note was generated with [employer] dictation software. It may contain incorrect words, [...] problems, contact your Primary Care Provider. Call [employer] Registry ([phone]) or report to the closest Emergency Room. Call 911 if necessary. 09/09/17 5162 <Electronically signed by Fabián Rodas MD> Date Fabián Rodas MD Cosigner Signature (If Indicated): Date CC: Ruddy Corral MD DISCHARGE INSTRUCTION Observed: 09/09/2017 Status: F Source: [place] 11:47 PM [facility] REPOSITORY [facility] Medical Records Department [address] [place] [address] Discharge Instruction 09/09/17 1850 MR#: [id number] Acct: [id number] Name: SUSANA WISEMAN Rep #: [id number] : 1955 61 From: Fabián Rodas MD [...] problems, contact your Primary Care Provider. Call [employer] Registry ([phone]) or report to the closest Emergency Room. Call 911 if necessary. 09/09/17 2347 <Electronically signed by Fabián Rodas MD> Date Fabián Rodas MD Cosigner Signature (If Indicated): Date CC: Ruddy Corral MD KNEE 3 VIEWS Observed: 09/09/2017 Status: F Source: [place] 5:29 PM [facility] REPOSITORY [facility] Imaging Services [address] [place] [address] Knee 3 Views MR#: [id number] Acct: [id number] Name: JALEN WISEMANA Moises Rep #: [id number] : 1955 F 61 From: Fox Ordaz MD PCP: Ruddy Corral MD, Chi Status: REG ER Study: Knee 3 Views Date of Exam: 09/09/17 Exam# [id number] Ordering Dr: Fabián Rodas MD STUDY: X-RAY [...] CC: Fabián Rodas MD; Ruddy Corral MD Cotton Ginner: Signed PELVIS 1 OR 2 VIEWS Observed: 09/09/2017 Status: F Source: [place] 5:29 PM [facility] REPOSITORY [facility] Imaging Services [address] [place] [address] Pelvis 1 or 2 Views MR#: [id number] Acct: [id number] Name: SUSANA WISEMAN Rep #: [id number] : 1955 F 61 From: Fox Ordaz MD PCP: Ruddy Corral MD, Chi Status: REG ER Study: Pelvis 1 or 2 Views Date of Exam: 09/09/17 Exam# [id number] Ordering Dr: Fabián Rodas MD STUDY: X-RAY [...] CC: Fabián Rodas MD; Ruddy Corral MD Cotton Ginner: Signed FEMUR MIN 2 VIEWS Observed: 09/09/2017 Status: F Source: [place] 5:29 PM [facility] REPOSITORY [facility] Imaging Services [address] [place] [address] Femur Min 2 Views MR#: [id number] Acct: [id number] Name: SUSANA WISEMNA Rep #: [id number] : 1955 F 61 From: Fox Ordaz MD PCP: Ruddy Corral MD, Chi Status: REG ER Study: Femur Min 2 Views Date of Exam: 09/09/17 Exam# [id number] Ordering Dr: Fabián Rodas MD STUDY: X-RAY [...] CC: Fabián Rodas MD; Ruddy Corral MD Cotton Ginner: Signed ORTHOPEDIC VISIT Observed: 08/23/2017 Status: F Source: [place] REPORT 9:12 AM [facility] Orthopa[facility]ics [facility] Medicine [address] [place] [address] OFFICE VISIT Date of Service: 08/16/17 MR#: [id number] Acct: [id number] Name: SUSANA WISEMAN Rep #: [id number] : 1955 Provider: Jesse Lemus DO Age/Sex: 61/F Location[place] [facility] Status: Signed Intake Intake Visit Reasons: bilateral [...] Never smoker HPI bilateral shoulder: Details: SUSANA IWSEMAN is a 61 year old F here [...] be performed we will refer to the [facility] or another outside orthopedic group. [...] 08/16/2017 Status: F Source: [place] 8:50 AM [facility] REPOSITORY [facility] Imaging Services [address] [place] [address] Shoulder min 2 Views MR#: [id number] Acct: [id number] Name: SUSANA WISEMAN Rep #: [id number] : 1955 F 61 From: Adria Louis DO PCP: Ruddy Corral MD, Chi Status: REG CLI Study: Shoulder min 2 Views Date of Exam: 08/16/17 Exam# [id number] Ordering Dr: Jesse Lemus DO STUDY: X-RAY [...] Adria Louis DO at 17:07 EDT Tel [phone], Service support , CC: Jesse Lemus DO; Ruddy Corral MD Cotton Ginner: Signed URINE DRUG SCREEN Collected: 07/11/2017 Status: F Source: [place] (VISTA) 3:40 PM [facility] REPOSITORY Order Comment: Comments: [id number] URINE DRUG SCREEN RUN LOWEST TEST List [...] Normal NEGATIVE Performed By: #### L505.5000 #### [facility] [address] [place], [address] MISCELLANEOUS LAB Collected: 07/11/2017 Status: F Source: [place] PROCEDURE 3:40 PM [facility] REPOSITORY Order Comment: Comments: [id number] URINE DRUG SCREEN RUN LOWEST TEST Test(s) Ordered: [id number] URINE DRUG SCREEN RUN LOWEST TEST TYPE CODE TESTS RESULT OUT OF RANGE REFERENCE UNITS LAB L801.1541 Normal [facility] [place] Result Comment: TEST RESULT UNITS REF INTERVAL [id number] 6+Oxycodone-Bund Amphetamines, Urine Negative ng/mL Uvsnzl=6888 Amphetamine test includes Amphetamine and Methamphetamine. Barbiturate Negative ng/mL Abafui=912 Benzodiazepines Negative ng/mL Qskfqu=380 Cannabinoids Negative ng/mL Cutoff=20 Cocaine (Metabolite) Negative ng/mL Truhqi=422 Opiates Positive ng/mL Aokhiq=873 Opiate test includes Codeine, Morphine, Hydromorphone, Hydrocodone. Please Note: Confirmation performed by Mass Spectrometry Codeine Negative Pxolzd=306 Morphine Negative Aqfdgb=541 Hydromorphone Negative Crzlgr=978 Hydrocodone Positive Hydrocodone Confirm 838 ng/mL Hycfoy=831 Oxycodone/Oxymorphone, Urine Negative ng/mL Edtvul=212 Test includes Oxycodone and Oxymorphone TESTING PERFORMED AT [facility]. ORIGINAL REPORT ON FILE IN LAB CONTAINS ADDITIONAL TEST SITE INFORMATION. Performed By: #### L801.1541 #### [facility] [address] [place], [address] LUMBAR SPINE 2 OR 3 Observed: 05/16/2017 Status: F Source: [place] VIEWS 1:47 PM [facility] REPOSITORY [facility] Imaging Services [address] [place] [address] Lumbar Spine 2 or 3 Views MR#: [id number] Acct: [id number] Name: SUSANA WISEMAN Rep #: [id number] : 1955 F 61 From: Jesus Alberto Newton DO PCP: Ellis KRUEGER,Ruddy Chi Status: REG CLI Study: Lumbar Spine 2 or 3 Views Date of Exam: 05/16/17 Exam# [id number] Ordering Dr: Montserrat Elias MD STUDY: X-RAY [...] CC: Montserrat Elias MD; Ruddy Corral MD Cotton Ginner: Signed 12 LEAD ELECTROCARDIOGRAM Observed: 04/24/2017 Status: F Source: [place] 1:10 PM [facility] REPOSITORY [facility] Cardiovascular Services [address] [place] [address] 12 Lead EKG 04/20/17 0712 MR#: [id number] Acct: [id number] Name: SUSNAA WISEMAN Rep #: [id number] : 1955 61 From: Stuart Alberto MD Attending Dr: Ubaldo Kilpatrick DO Status: DIS TRISTON Ordering Dr: Fabián Rodas MD Date: 04/20/17 Location: [facility] Sex: F C Admitted: 04/20/17 Test Reason [...] normal ECG Confirmed by STUART ALBERTO ([id number]), slot editor CORAZON HENLEY ([id number]) on 04/24/2017 1:10:00 PM Referred By: JOEL Confirmed By:STUART ALBERTO 04/24/17 1310 Date Stuart Alberto MD CC: Fabián Rodas MD; Ruddy Corral MD Signed ECHOCARDIOGRAM COMPLETE Observed: 04/21/2017 Status: F Source: [place] 11:42 AM [facility] REPOSITORY [facility] Cardiovascular Services [address] [place] [address] Echo Complete 04/21/17 0809 MR#: [id number] Acct: [id number] Name: SUSANA WISEMAN Rep #: [id number] : 1955 61 From: Stuart Alberto MD Attending Dr: Ubaldo Kilpatrick DO Status: DIS TRISTON Ordering Dr: Ubaldo Kilpatrick DO Date: 04/20/17 Location: [facility] Sex: F C Admitted: 04/20/17 Reason For [...] 04/21/17 1142 Date Stuart Alberto MD CC: Ubaldo Kilpatrick DO; Ruddy Corral MD Date Dictated: 04/21/17 0809 Date Transcribed: 04/21/17 114 Cotton Ginner: Signed DISCHARGE SUMMARY Observed: 04/21/2017 Status: F Source: PENUELAS 8:35 AM [facility] REPOSITORY [facility] Medical Records Department [address] [place] [address] Discharge Summary 04/21/17832 MR#: [id number] Acct: [id number] Name: SUSANA WISEMAN Rep #: [id number] : 1955 61 From: Ubaldo Kilpatrick DO PCP: Ruddy Corral MD, Chi Status: ADM TRISTON Y Location: [place] [address] Discharge Date and Diagnosis - Problem List [...] Tariq Kapoor MD at 8:22 EST Tel [phone], Service support , Brain MRI 04/20/17 14:06 [...] applicable Code Visit OBSV Bean AND M: 20943 Observation care discharge 04/21/17834 <Electronically signed by Ubaldo Kilpatrick DO> Date Ubaldo Kilpatrick DO Cosigner Signature (if applicable): Date CC: Ubaldo Kilpatrick DO; Ruddy Corral MD Signed DISCHARGE INSTRUCTION Observed: 04/21/2017 Status: F Source: PENUELAS 8:33 AM [facility] REPOSITORY [facility] Medical Records Department [address] [place] [address] Instructions for Home/Discharge Instructions 04/21/17829 MR#: [id number] Acct: [id number] Name: SUSANA WISEMAN Rep #: [id number] : 1955 61 From: Ubaldo Kilpatrick DO [...] 04/21/2017 Status: F Source: RIYA 6:50 AM [facility] REPOSITORY TYPE CODE TESTS RESULT OUT OF REFERENCE UNITS RANGE LAB L501.080 70-110 mg/dL High BEDSIDE GLU 136 Result Comment: MANAGEMENT OF PATIENT CARE PER NURSING PROTOCOL Performed By: #### L501.080 #### [facility] Point of Care [address] [place] [address] CBC W/DIFF, AUTOMATED Collected: 04/21/2017 Status: F Source: RIYA 5:40 AM [facility] REPOSITORY TYPE CODE TESTS RESULT OUT [...] Lymph 2.10 Performed By: #### L100.0100 #### [facility] [place], [address] PROTHROMBIN TIME W/INR Collected: 04/21/2017 Status: F Source: PENUELAS 5:40 AM [facility] REPOSITORY TYPE CODE TESTS RESULT OUT OF RANGE REFERENCE UNITS LAB L300.4150 11.7-14.9 SECONDS High PROTIME 19.3 LAB L300.4200 Normal INR 1.7 Performed By: #### L300.3900 #### [facility] [address] [facility] [place], [place], [address] BASIC METABOLIC Collected: 04/21/2017 Status: F Source: PENUELAS PROFILE (BMP) 5:40 AM [facility] REPOSITORY TYPE CODE TESTS RESULT OUT [...] 8 Performed By: #### L500.2500, L500.4100 #### [facility] [address] [place], [place], [address] LIPID PROFILE Collected: 04/21/2017 Status: F Source: PENUELAS 5:40 AM [facility] REPOSITORY TYPE CODE TESTS RESULT OUT [...] 30 Performed By: #### L500.2500, L500.4100 #### [facility] [address] [facility] [place] [address] BEDSIDE GLUCOSE Collected: 04/20/2017 Status: F Source: PENUELAS 8:53 PM [facility] REPOSITORY TYPE CODE TESTS RESULT OUT OF REFERENCE UNITS RANGE LAB L501.080 70-110 mg/dL High BEDSIDE GLU 135 Result Comment: MANAGEMENT OF PATIENT CARE PER NURSING PROTOCOL Performed By: #### L501.080 #### [facility] Point of Care [address] [facility] [place] [address] BEDSIDE GLUCOSE Collected: 04/20/2017 Status: F Source: PENUELAS 4:34 PM [facility] REPOSITORY TYPE CODE TESTS RESULT OUT OF REFERENCE UNITS RANGE LAB L501.080 70-110 mg/dL High BEDSIDE GLU 127 Result Comment: MANAGEMENT OF PATIENT CARE PER NURSING PROTOCOL Performed By: #### L501.080 #### [facility] Point of Care [address] [facility] [place] [address] EMERGENCY DEPARTMENT Observed: 04/20/2017 Status: F Source: PENUELAS SUMMARY 4:23 PM [facility] REPOSITORY [facility] Medical Records Department [address] [facility] [place] [address] Emergency Department Summary 04/20/17 0713 MR#: [id number] Acct: [id number] Name: SUSANA WISEMAN Rep #: [id number] : 1955 61 From: Fabián Rodas MD PCP: Ellis KRUEGER,Ruddy Mclain Status: ADM TRISTON - ER Visit Summary Date of Service: 04/20/17 Chief Complaint: Dizzy meaning off balance History of Present Illness: The patient is a 61 F is a history of prior A. fib, DVT and PE, gyn-bqbzfdj-uajqhntit diabetes, hypertension and COPD. She is on [...] intact. 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 Dorsi plantar flexion is intact. [...] of DVT and PEs and history of cwv-snjjlub-wwzxugpdi diabetes This note was generated with [employer] software. It may contain incorrect words, spelling, [...] problems, contact your Primary Care Provider. Call [employer] Registry ([phone]) or report to the closest Emergency Room. Call 911 if necessary. 04/20/17 1623 <Electronically signed by Fabián Rodas MD> Date Fabián Rodas MD Cosigner Signature (If Indicated): Date CC: Ruddy Corral MD HISTORY AND PHYSICAL Observed: 04/20/2017 Status: F Source: PENUELAS EXAM 2:52 PM [facility] REPOSITORY [facility] Medical Records Department [address] [place] [address] History and Physical 04/20/17 1444 MR#: [id number] Acct: [id number] Name: SUSANA WISEMAN Rep #: [id number] : 1955 61 From: Ubaldo Kilpatrick DO PCP: Ellis MD,Ruddy Chi Status: ADM TRISTON Y Location: [facility] [id number] Problem List (1) Dizziness Status: Acute (2) [...] Tariq Kapoor MD at 8:22 EST Tel [phone], Service support , Laboratory Results - last [...] anticoagulation Code Visit OBSV E AND M: 59511 Initial observation care L3 04/20/17 1322 <Electronically signed by Ubaldo Jopperi DO> Date Ubaldo Kilpatrick DO Cosigner Signature: Date (if applicable) CC: Ubaldo Kilpatrick DO; Ruddy Corral MD Signed MRA NECK WITH AND W/O Observed: 04/20/2017 Status: F Source: PENUELAS CONTRAST 2:07 PM [facility] REPOSITORY [facility] Imaging Services [address] [place] [address] MRA Neck WITH and W/O Contrast MR#: [id number] Acct: [id number] Name: SUSANA WISEMAN Rep #: [id number] : 1955 F 61 From: Croazon Holm MD PCP: Ellis KRUEGER,Ruddy Mclain Status: ADM TRISTON Study: MRA Neck WITH and W/O Contrast Date of Exam: 04/20/17 Exam# [id number] Ordering Dr: Ubaldo Kilpatrick DO MRA Neck WO/W Contrast INDICATION: vertigo SINCE THIS A.M. COMPARISON: None TECHNIQUE: MR angiogram of the neck without and with IV contrast and 2-D hyyg-qx-tsckaf technique with 3-D reformatted images. FINDINGS: Study [...] CC: Ubaldo Kilpatrick DO; Ruddy Corral MD Cotton Ginner: Signed MRA HEAD ONLY WITHOUT Observed: 04/20/2017 Status: F Source: PENUELAS CONTRAST 2:07 PM [facility] REPOSITORY [facility] Imaging Services [address] [place] [address] MRA Head ONLY without Contrast MR#: [id number] Acct: [id number] Name: SUSANA WISEMAN Rep #: [id number] : 1955 F 61 From: Corazon Holm MD PCP: Ellis KRUEGER,Ruddy Mclain Status: ADM TRISTON Study: MRA Head ONLY without Contrast Date of Exam: 04/20/17 Exam# [id number] Ordering Dr: Ubaldo Kilpatrick DO MRA Head W/O Contrast INDICATION: vertigo SINCE THIS A.M. COMPARISON: None TECHNIQUE: MR angiogram of the three affiliated of Green and 3-D jvrh-ic-wrjuel technique with 3-D reformatted images. FINDINGS: There [...] CC: Ubaldo Kilpatrick DO; Ruddy Corral MD Cotton Ginner: Signed BRAIN W/WO CONTRAST Observed: 04/20/2017 Status: F Source: RIYA 2:07 PM [facility] REPOSITORY [facility] Imaging Services [address] [place] [address] Brain W/WO Contrast MR#: [id number] Acct: [id number] Name: SUSANA WISEMAN Rep #: [id number] : 1955 F 61 From: Corazon Holm MD PCP: Ruddy Corral MD, Chi Status: ADM TRISTON Study: Brain W/WO Contrast Date of Exam: 04/20/17 Exam# [id number] Ordering Dr: Ubaldo Kilpatrick DO MR Brain [...] CC: Ubaldo Kilpatrick DO; Ruddy Corral MD Cotton Ginner: Signed PROTHROMBIN TIME W/INR Collected: 04/20/2017 Status: F Source: RIYA 7:35 AM [facility] REPOSITORY TYPE CODE TESTS RESULT OUT OF RANGE REFERENCE UNITS LAB L300.4150 11.7-14.9 SECONDS High PROTIME 15.5 LAB L300.4200 Normal INR 1.3 Performed By: #### L300.3900 #### [facility] [address] [place], [address] BRAIN/HEAD WITHOUT Observed: 04/20/2017 Status: F Source: PENUELAS CONTRAST 7:21 AM [facility] REPOSITORY [facility] Imaging Services [address] [place] [address] Brain/Head without Contrast MR#: [id number] Acct: [id number] Name: SUSANA WISEMAN Rep #: [id number] : 1955 F 61 From: Tariq Kapoor MD PCP: Ellis KRUEGER,Ruddy Mclain Status: REG ER Study: Brain/Head without Contrast Date of Exam: 04/20/17 Exam# [id number] Ordering Dr: Fabián Rodas MD STUDY: CT [...] Tariq Kapoor MD at 8:22 EST Tel [phone], Service support , CC: Fabián Rodas MD; Ruddy Corral MD Cotton Ginner: Signed CBC W/DIFF, AUTOMATED Collected: 04/20/2017 Status: F Source: RIYA 7:10 AM [facility] REPOSITORY TYPE CODE TESTS RESULT OUT [...] Lymph 1.85 Performed By: #### L100.0100 #### [facility] [address] [place], [address] BASIC METABOLIC Collected: 04/20/2017 Status: F Source: RIYA PROFILE (BMP) 7:10 AM [facility] REPOSITORY TYPE CODE TESTS RESULT OUT [...] 9 GAP Performed By: #### L500.2500 #### [facility] [address] [place], [address] ALLERGIES ALLERGIES DATE TYPE / CODE NAME / CODE REACTION SEVERITY SOURCE 02/13/2018 Drug flecainide/F Rash Unknown [facility] Allergy/4160 [id number]( Hospital 53491(SNOMED NORM) Repository CT) ENCOUNTERS ENCOUNTERS ADMIT/DISCHARGE ACCOUNT ADMITTING ENCOUNTER LOCATION SOURCE NUMBER CLASS 02/13/2018/ [id number] Ambulatory [place] [facility] 8 [facility] Hospital ing:SDCRoom: Repository AC16 02/12/2018 [id number] Ambulatory [place] [facility] 6 [facility] Hospital ing:RAD Repository 02/11/2018/ [id number] Emergency [place] [facility] 5 [facility] Hospital ing:ED Repository 01/30/2018 [id number] Ambulatory [place] [facility] Hospital ing:PSN Repository 12/29/2017 [id number] Ambulatory [place] [facility] Hospital ing:OPBI Repository 10/30/2017 [id number] Ambulatory [place] 1 [facility] Hospital ing:HPRAD Repository 10/30/2017/ [id number] Ambulatory BMSBuilding:B [place] [facility] 3 [facility] Hospital Repository 09/20/2017 [id number] Ambulatory [place] [facility] Hospital ing:POLAB3 Repository 09/09/2017/ [id number] Emergency [place] [facility] 6 [facility] Hospital ing:ED Repository 08/16/2017 [id number] Ambulatory [place] [facility] Hospital ing:HPRAD Repository 08/16/2017/ [id number] Ambulatory BMSBuilding:B [facility] [facility] 0 [facility] Repository 07/11/2017 [id number] Ambulatory [place] [facility] Hospital ing:LAB Repository 05/18/2017 [id number] Ambulatory BMSBuilding:B [place] [facility] Repository 05/16/2017 [id number] Ambulatory [place] [facility] 7 [facility] Hospital ing:RAD Repository 04/20/2017/ [id number] Ubaldo Kilpatrick Ambulatory [place] [facility] 6 [facility] Hospital ing:PCURoom: Repository [id number]: 1 04/20/2017 [id number] Ubaldo Kilpatrick Ambulatory BMSBuilding:B [facility] 8 [facility] Repository 04/20/2017 [id number] Jopperi, Ubaldo Ambulatory BMSBuilding:B [place] [facility] Repository 04/20/2017/ [id number] Ambulatory BMSBuilding:W [facility] [address] [facility] Repository PAYERS PAYERS ENCOUNTER GUARANTOR PAYER SUBSCRIBER SOURCE 02/13/2018 SUSANA K Primary SUSANA K [place] [id number] [place] Insurance:MEDICARE BYRDDOB: [facility] [address] [facility] [id number] [address]Dai: Number: Repository [id number] (HP) Date:2018-02-12 02/13/2018 Secondary SUSANA K [place] [facility] BYRDDOB: [facility] cy Number: [id number] Hospital [id number] Repository Date:5244-52-74[address], [place] [address]VD: 02/13/2018 Tertiary NOT GIVENUNK [place] Insurance:SELF PAY [facility] Number: Effective Repository Date:2018-02-12 02/12/2018 SUSANA K Primary SUSANA K [place] [id number] [place] Insurance:MEDICARE BYRDDOB: [facility] [address] [place] PART A [facility] [id number] General Hospital [address]Cbw: Number: Repository [id number] (HP) Date:2018-02-12 02/12/2018 Secondary SUSANA K [place] [facility] BYRDDOB: [facility] cy Number: [id number] Hospital [id number] Repository Date:8679-79-15[address], [place] [address]OU: 02/12/2018 Tertiary NOT GIVENUNK [place] Insurance:SELF PAY [facility] Number: Effective Repository Date:2018-02-12 02/11/2018 SUSANA K Primary SUSANA K [place] [id number] NATHANIEL Insurance:MEDICARE BYRDDOB: [facility] [address] [place], PART A [facility] [id number] General Hospital [address]Kql: Number: Repository [id number] (HP) Date:2018-02-11 02/11/2018 Secondary SUSANA K [place] Insurance:CHAMPVAPoli BYRDDOB: Community cy Number: [id number] Hospital [id number] Repository Date:5832-01-42[address], [place] [address]NP: 02/11/2018 Tertiary NOT GIVENUNK [place] Insurance:SELF PAY [facility] Number: Effective Repository Date:2018-02-11 01/30/2018 SUSANA K Primary SUSANA K [place] [id number] NATHANIEL Insurance:MEDICARE BYRDDOB: Community [address] A [facility] [id number] General Hospital [address]Nmn: Number: Repository [id number] (HP) Date:2017-10-31 01/30/2018 Secondary SUSANA K [place] Insurance:CHAMPVAPoli BYRDDOB: Community cy Number: [id number] Hospital [id number] Repository Date:6128-12-48SF [address], [place] [address]TW: 01/30/2018 Tertiary NOT GIVENUNK [place] Insurance:SELF PAY [facility] Number: Effective Repository Date:2017-10-31 12/29/2017 SUSANA K Primary SUSANA K [place] [id number] NATHANIEL Insurance:MEDICARE BYRDDOB: Community [address] A [facility] [id number] General Hospital [address]Whi: Number: Repository [id number] (HP) Date:2017-11-16 12/29/2017 Secondary SUSANA K [place] Insurance:CHAMPVAPoli BYRDDOB: Community cy Number: [id number] Hospital [id number] Repository Date:7796-65-77QU [address], [place] [address]MT: 12/29/2017 Tertiary NOT GIVENUNK [place] Insurance:SELF PAY [facility] Number: Effective Repository Date:2017-11-16 10/30/2017 SUSANA K Primary SUSANA K [place] [id number] NATHANIEL Insurance:MEDICARE BYRDDOB: Community [address] A [facility] [id number] General Hospital [address]Bre: Number: Repository [id number] (HP) Date:2017-10-30 10/30/2017 Secondary SUSANA K [place] Insurance:CHAMPVAPoli BYRDDOB: Community cy Number: [id number] Hospital [id number] Repository Date:2941-41-09GF [address], [place] [address]IS: 10/30/2017 Tertiary NOT GIVENUNK [place] Insurance:SELF PAY [facility] Number: Effective Repository Date:2017-10-30 10/30/2017 SUSANA K Primary SUSANA K [place] [id number] NATHANIEL Insurance:MEDICARE BYRDDOB: Community [address] [facility] [id number] General Hospital [address]Otc: Number: Repository [id number] (HP) Date:2017-10-15 10/30/2017 Secondary SUSANA K [place] Insurance:CHAMPVAPoli BYRDDOB: Community cy Number: [id number] Hospital [id number] Repository Date:3706-41-28CB [address]WTA[place], [place] [address]PE: 10/30/2017 Tertiary NOT GIVENUNK [place] Insurance:SELF PAY [facility] Number: Effective Repository Date:2017-10-30 09/20/2017 SUSANA K Primary SUSANA K [place] [id number] NATHANIEL Insurance:MEDICARE BYRDDOB: Community [address] A [facility] [id number] General Hospital [address]Uvb: Number: Repository [id number] (HP) Date:2017-09-20 09/20/2017 Secondary SUSANA K [place] Insurance:CHAMPVAPoli BYRDDOB: Community cy Number: [id number] Hospital [id number] Repository Date:2792-61-78NS [address], [place] [address]SC: 09/20/2017 Tertiary NOT GIVENUNK [place] Insurance:SELF PAY [facility] Number: Effective Repository Date:2017-09-20 09/09/2017 SUSANA K Primary SUSANA K [place] [id number] NATHANIEL Insurance:MEDICARE BYRDDOB: Community [address] [facility] [id number] General Hospital [address]Kbe: Number: Repository [id number] (HP) Date:2017-09-09 09/09/2017 Secondary SUSANA K [place] Insurance:MELISSAVAPoli BYRDDOB: Community cy Number: [id number] Hospital [id number] Repository Date:4169-06-39HF [address]WF, [place] [address]HM: 09/09/2017 Tertiary NOT GIVENUNK [place] Insurance:SELF PAY [facility] Number: Effective Repository Date:2017-09-09 08/16/2017 SUSANA K Primary SUSANA K [place] [id number] NATHANIEL Insurance:MEDICARE BYRDDOB: Community [address] A [facility] [id number] General Hospital [address]Srf: Number: Repository [id number] (HP) Date:2017-08-16 08/16/2017 Secondary SUSANA K [place] Insurance:CHAMPVAPoli BYRDDOB: Community cy Number: [id number] Hospital [id number] Repository Date:4975-18-39[address], [place] [address]PK: 08/16/2017 Tertiary NOT GIVENUNK [place] Insurance:SELF PAY [facility] Number: Effective Repository Date:2017-08-16 08/16/2017 SUSANA K Primary SUSANA K [place] [id number] NATHANIEL Insurance:MEDICARE BYRDDOB: Community [address] A [facility] [id number] General Hospital [address]Owi: Number: Repository [id number] (HP) Date:2017-07-17 08/16/2017 Secondary SUSANA K [place] Insurance:CHAMPVAPoli BYRDDOB: Community cy Number: [id number] Hospital [id number] Repository Date:9443-01-87DM [address], [place] [address]TH: 08/16/2017 Tertiary NOT GIVENUNK [place] Insurance:SELF PAY [facility] Number: Effective Repository Date:2017-08-16 07/11/2017 SUSANA K Primary SUSANA K [place] [id number] NATHANIEL Insurance:MEDICARE BYRDDOB: [facility] [id number] General Hospital [address]Gsa: Number: Repository [id number] (HP) Date:2017-07-11 07/11/2017 Secondary SUSANA K [place] Insurance:CHAMPVAPoli BYRDDOB: Community cy Number: [id number] Hospital [id number] Repository Date:6665-66-00HR [address], [place] [address]GW: 07/11/2017 Tertiary NOT GIVENUNK [place] Insurance:SELF PAY [facility] Number: Effective Repository Date:2017-07-11 05/18/2017 SUSANA K Primary SUSANA K [place] [id number] NATHANIEL Insurance:CHAMPVAPoli BYRDDOB: Community [address] [place] cy Number: [id number] General Hospital [address]Cty: [id number] Repository Date:8315-78-97GK [address]) [address], [place] [address]ON: 05/18/2017 Secondary SUSANA K [place] Insurance:MEDICARE BYRDDOB: Community PART A [facility] [id number] Hospital Number: Repository [id number] Date:2017-01-31 05/18/2017 Tertiary NOT GIVENUNK [place] Insurance:SELF PAY [facility] Number: Effective Repository Date:2017-01-31 05/16/2017 SUSANA K Primary SUSANA K [place] [id number] NATHANIEL Insurance:MEDICARE BYRDDOB: Community [address] [facility] [id number] General Hospital [address]Ycv: Number: Repository [id number] () Date:2017-05-16 05/16/2017 Secondary SUSANA K [place] Insurance:CHAMPVAPoli BYRDDOB: Community cy Number: [id number] Hospital [id number] Repository Date:9470-40-12[address], [place] [address]ZM: 05/16/2017 Tertiary NOT GIVENUNK [place] Insurance:SELF PAY [facility] Number: Effective Repository Date:2017-05-16 04/20/2017 SUSANA K Primary SUSANA K [place] [id number] NATHANIEL Insurance:MEDICARE BYRDDOB: Community [address] [facility] [id number] General Hospital [address]Wpo: Number: Repository [id number] (HP) Date:2017-04-20 04/20/2017 Secondary SUSANA K [place] Insurance:CHAMPVAPoli BYRDDOB: Community cy Number: [id number] Hospital [id number] Repository Date:9569-60-83[address], [place] [address]RD: 04/20/2017 Tertiary NOT GIVENUNK [place] Insurance:SELF PAY [facility] Number: Effective Repository Date:2017-04-20 04/20/2017 SUSANA K Primary SUSANA K [place] [id number] NATHANIEL Insurance:MEDICARE BYRDDOB: Community [address] [facility] [id number] General Hospital [address]Eff: Number: Repository [id number] (HP) Date:2017-04-20 04/20/2017 Secondary SUSANA K [place] Insurance:CHAMPVAPoli BYRDDOB: Community cy Number: [id number] Hospital [id number] Repository Date:8203-09-43[address], [place] [address]SZ: 04/20/2017 Tertiary NOT GIVENUNK [place] Insurance:SELF PAY [facility] Number: Effective Repository Date:2017-04-20 04/20/2017 SUSANA K Primary SUSANA K [place] [id number] NATHANIEL Insurance:MEDICARE BYRDDOB: Community [address] A [facility] [id number] General Hospital [address]Bvc: Number: Repository [id number] (HP) Date:2017-04-20 04/20/2017 Secondary SUSANA K [place] Insurance:CHAMPVAPoli BYRDDOB: Community cy Number: [id number] Hospital [id number] Repository Date:0175-84-45[address], [place] [address]JE: 04/20/2017 Tertiary NOT GIVENUNK [place] Insurance:SELF PAY [facility] Number: Effective Repository Date:2017-04-20 04/20/2017 SUSANA K Primary SUSANA K [place] [id number] NATHANIEL Insurance:MEDICARE BYRDDOB: Community [address] [facility] [id number] General Hospital [address]Tys: Number: Repository [id number] (HP) Date:2017-04-20 04/20/2017 Secondary SUSANA K [place] Insurance:CHAMPVAPoli BYRDDOB: Community cy Number: [id number] Hospital [id number] Repository Date:1466-34-93[address], [place] [address]GV: 04/20/2017 Tertiary NOT GIVENJENNIFER Ritter Insurance:SELF PAY [facility]: Effective Repository Date:2017-04-20
== END ==
PROVIDERS: Family Provider Family Medicine Geriatric Medicine; PCP Family Medicine Geriatric Medicine; Referring Provider Urology; Visit Provider Urology
DX: N20.0 Calculus of kidney (principal)
CPT/HCPCS: 74018

== ENCOUNTER 2018-02-13 11:41 | Day surgery (SDC) | payer MEDICARE, OTHER, SELFPAY ==
[2018-02-13 12:15] LABS: Prothrombin Time Fingerstick 22.9 SEC (11.9-14.4)
[2018-02-13 12:21] VITALS: BP 123/63; PULSE 72; RESP 16; TEMP 36.8; O2SAT 93; BMI 40.7
[2018-02-13 12:50] LABS: Bedside Glucose 128 mg/dL (70-110)
[2018-02-13] MEDS: Cefazolin 2 GM in 0.9% Normal Saline 100 ML IV (14:24)
--- NOTE | 2018-02-13 14:59 | DCINST_ITS ---
Discharge Diet: Light diet - advance as tolerated Discharge Activity: Return to Normal Activity Call your doctor if your incision/area has: Sudden Increased Bleeding Call your doctor if you observe: Fever of 101 or Higher Allergies/Adverse Reactions: Allergies flecainide [Flecainide] Allergy (Verified 02/13/18 08:12) Rash Medications to take at Discharge Albuterol Inhaler [Ventolin Hfa] 2 puff INHALATION Q4H PRN PRN 04/20/17 Atorvastatin Calcium [Lipitor] 40 mg PO QHS 04/20/17 Budesonide/Formoterol 160/4.5 [Symbicort 160/4.5 Mcg Inhaler (SP)] 2 puff INHALATION BID 04/20/17 Calcium Carbonate [Calcium] 2 tab PO DAILY 04/20/17 Celecoxib [Celebrex] 200 mg PO DAILY 04/20/17 Metformin HCl [Glucophage] 1,000 mg PO BIDCM 04/20/17 Pramipexole Di-HCl [Mirapex] 0.5 mg PO BID 04/20/17 Vit A/Vit C/Vit E/Zinc/Copper [Preservision Areds Softgel] 1 ea PO DAILY 04/20/17 Vortioxetine Hydrobromide [Trintellix] 20 mg PO DAILY 04/20/17 warfarin 10 mg tablet 4 mg PO DAILY 05/16/17 Olmesartan/Hydrochlorothiazide [Benicar Hct 40-12.5 MG Tab] 1 tab PO DAILY 02/11/18 Solifenacin Succinate [Vesicare] 5 mg PO DAILY 02/11/18 traZODone [Desyrel] 50 mg PO QHS 02/11/18 Acetaminophen [Tylenol Extra Strength] 500 mg PO Q4H PRN PRN #20 tablet 02/13/18 Ibuprofen 600 mg PO Q6H PRN PRN #20 tablet 02/13/18 Oxycodone HCl/Acetaminophen [Percocet 7.5-325 mg Tablet] 1 each PO Q6H PRN PRN 02/13/18 The following prescriptions were given: Acetaminophen [Tylenol Extra Strength] 500 mg PO Q4H PRN PRN #20 tablet PRN Reason: Pain Ibuprofen 600 mg PO Q6H PRN PRN #20 tablet PRN Reason: Pain Primary Care Physician: Ruddy Corral Chi, MD [Primary Care Provider] - Test Results: Test results from this visit will be discussed in further detail at your follow- up appointment, if applicable. Please Follow Up With: True Weathers MD When: in 2 weeks, please call to make an appointment.
--- NOTE | 2018-02-13 15:01 | PCM.OPRPT ---
Report of Operation Date of Procedure: 02/13/18 Pre-Operative Diagnosis: Left ureteral calculi Post-Operative Diagnosis: Same Surgery/Procedure Performed:: Cystoscopy, balloon dilation of the left ureter, left ureteroscopy laser lithotripsy of stone, Description of Surgical Findings:: 62-year-old female has obstructing stone in the mid left ureter presented today to the hospital for outpatient ureteroscopy surgery and laser lithotripsy. 62-year-old female taken back to the operating room after smooth induction of general anesthesia she was placed in dorsolithotomy position, went into the bladder with a 21 [place] rigid cystoscopy urethroscope the pablo cystoscopy 3070 degree lens main finding was a cystocele she also has a rectocele no tumors or stones within the bladder I then identified the left ureteral orifice cannulated with a wire and advanced the balloon dilator balloon dilated the distal left ureter ureteral orifice, I then went in with a SlimLine rigid ureteroscope went up the ureter and then encountered the stone in the mid ureter I used a 200 ?m laser fiber laser the stone little tiny pieces once the stone was lasered on the tiny pieces that should pass on their own I worked my way down the ureter by the fragments passes working way down the ureter to leave a stent in drain the bladder patient's anesthetic was reversed and she is taken back to PACU good condition. Plan to see her back for checkup and then will plan for shockwave lithotripsy of the remaining stones in the kidneys when she is off her Coumadin. Type of Anesthesia:: General Drains: none - Admit VTE Documentation VTE Present on Admission: No VTE Mechan Device Prophylaxis: SCD's
[2018-02-13 15:10] VITALS: BP 123/63; BP 168/77; PULSE 79; RESP 14; TEMP 36.4; O2SAT 100
[2018-02-13 15:15] VITALS: BP 123/63; BP 149/82; PULSE 77; RESP 16; O2SAT 100
[2018-02-13] MEDS: Ketorolac 15 MG/ML Vial IV (15:15)
[2018-02-13 15:30] VITALS: BP 123/63; BP 143/50; PULSE 85; RESP 16; TEMP 36.4; O2SAT 97
[2018-02-13 15:31] LABS: Bedside Glucose 126 mg/dL (70-110)
[2018-02-13 16:06] VITALS: BP 123/63
--- OUTSIDE RECORDS SUMMARY | 2018-05-17 15:52 | XMS RPT_ITS ---
:1955 Author Organization OHIP Support Name Relationship Address Phone CAYETANO WISEMAN Unavailable [address] + [address] [place] [address] CURRAN, SHAD Unavailable Unavailable + [place] [address] D Unavailable Unavailable Unavailable CAYETANO WISEMAN Unavailable [address] + [address] [place] [address] CURRAN, SHAD Unavailable Unavailable + [place] [address] D Unavailable Unavailable Unavailable CAYETANO WISEMAN Unavailable [address] + [address] [place] [address] CURRAN, SHAD Unavailable Unavailable + [place] [address] D Unavailable Unavailable Unavailable CAYETANO WISEMAN Unavailable [address] + [address] [place] [address] CURRAN, SHAD Unavailable Unavailable + [place] [address] D Unavailable Unavailable Unavailable CAYETANO WISEMAN Unavailable [address] + [address] [place] [address] CURRAN, SHAD Unavailable Unavailable + [place] [address] D Unavailable Unavailable Unavailable CAYETANO WISEMAN Unavailable [address] + [address] [place] [address] CURRAN, SHAD Unavailable Unavailable + D Unavailable Unavailable Unavailable CAYETANO WISEMAN Unavailable [address] + [address] [place] [address] CURRAN, SHAD Unavailable [address] + [address] [place] [address] D Unavailable Unavailable Unavailable CAYETANO WISEMAN Unavailable [address] + [address] [place] [address] CURRAN, SHAD Unavailable [address] + [address] [place] [address] D Unavailable Unavailable Unavailable CAYETANO WISEMAN Unavailable [address] + [address] [place] [address] CURRAN, SHAD Unavailable [address] + [address] [place] [address] D Unavailable Unavailable Unavailable CAYETANO WISEMAN Unavailable [address] + [address] [place] [address] CURRAN, SHAD Unavailable [address] + [address] [place] [address] D Unavailable Unavailable Unavailable CAYETANO WISEMAN Unavailable [address] + [address] [place] [address] CURRAN, SHAD Unavailable [address] + [address] [place] [address] D Unavailable Unavailable Unavailable CAYETANO WISEMAN Unavailable [address] + [address] [place] [address] CURRAN, SHAD Unavailable [address] + [address] [place] [address] D Unavailable Unavailable Unavailable CAYETANO WISEMAN Unavailable [address] + [address] [place] [address] CURRAN, SHAD Unavailable [address] + [address] [place] [address] D Unavailable Unavailable Unavailable CAYETANO WISEMAN Unavailable [address] + [address] [place] [address] CURRAN, SHAD Unavailable [address] + [address] [place] [address] D Unavailable Unavailable Unavailable CAYETANO WISEMAN Unavailable [address] + [address] [place] [address] CURRAN, SHAD Unavailable [address] + [address] [place] [address] D Unavailable Unavailable Unavailable CAYETANO WISEMAN Unavailable [address] + [address] [place] [address] CURRJOANN SHAD Unavailable [address] + [address] [place] [address] D Unavailable Unavailable Unavailable CAYETANO WISEMAN Unavailable [address] + [address] [place] [address] ZARINA LIUARIE Unavailable [address] + [address] [place] [address] D Unavailable Unavailable Unavailable CAYETANO WISEMAN Unavailable [address] + [address] [place] [address] ZARINA LIUARIE Unavailable [address] + [address] [place] [address] D Unavailable Unavailable Unavailable CAYETANO WISEMAN Unavailable [address] + [address] [place] [address] CURRZARINA DAVIDARIE Unavailable [address] + [address] [place] [address] D Unavailable Unavailable Unavailable Care Team Providers Name Role Phone Ellis, Ruddy Chi Primary Care Unavailable Fabián Rodas Attending Unavailable JasielTrue Attending Unavailable Ellis, Ruddy Chi Primary Care Unavailable JasielMonseHomero Referring Unavailable JasielTrue Attending Unavailable JasielTrue Referring Unavailable Ellis, Ruddy Chi Primary Care Unavailable JasielTrue Attending Unavailable Jasiel, Homero Referring Unavailable Ellis, Ruddy Chi Primary Care Unavailable Ellis, Ruddy Chi Primary Care Unavailable Jopperi, Ubaldo Admitting Unavailable Jopperi, Ubaldo Attending Unavailable Jopperi, Ubaldo Admitting Unavailable Jopperi, Ubaldo Attending Unavailable Ellis, Ruddy Chi Primary Care Unavailable Jopperi, Ubaldo Consulting Unavailable Jopperi, Ubaldo Admitting Unavailable Jopperi, Ubaldo Attending Unavailable Ellis, Ruddy Chi Primary Care Unavailable Jopperi, Ubaldo Consulting Unavailable ErikaiMontserrat Attending Unavailable Ellis, Ruddy Chi Primary Care Unavailable Tulio Licea Attending Unavailable Ellis, Ruddy Chi Referring Unavailable Jayjayeri, Ubaldo Attending Unavailable Montserrat Elias Attending Unavailable Montserrat Elias Referring Unavailable Ellis, Ruddy Chi Primary Care Unavailable Jesse Lemus Attending Unavailable Ellis, Ruddy Chi Referring Unavailable Ellis, Ruddy Chi Primary Care Unavailable Jesse Lemus Attending Unavailable Jesse Lemus Referring Unavailable Ellis, Ruddy Chi Primary Care Unavailable Ellis, Ruddy Chi Primary Care Unavailable Fabián Rodas Attending Unavailable Ellis, Ruddy Chi Attending Unavailable Ellis, Ruddy Chi Primary Care Unavailable ChicorelAmanda salazar Attending Unavailable Ellis, Ruddy Chi Referring Unavailable Ellis, Ruddy Chi Primary Care Unavailable Chicorelli, Amanda Attending Unavailable Chicorelli, Amanda Referring Unavailable Ellis, Ruddy Chi Primary Care Unavailable Ellis, Ruddy Chi Attending Unavailable Ellis, Ruddy Chi Primary Care Unavailable Lucien Hazel Attending Unavailable Wayt, Lucien Referring Unavailable Ellis, Ruddy Chi Primary Care Unavailable PROBLEMS PROBLEMS DATE TYPE CONDITION / CODE ATTENDING STATUS SOURCE 02/11/2018 Unknown N20.0 - Calculus of Jaime Rodasrey Active [place] [facility] / [facility] N20.0(ICD-10) Hospital Repository 02/06/2018 Unknown Z12.31 - Encounter Ellis, Ruddy Chi Active [place] for screening [facility] mammogram for Hospital malignant neoplasm Repository of breast / Z12.31(ICD-10) 10/30/2017 Unknown M79.641 - Pain in Manish, Active [place] right hand / [facility] M79.641(ICD-10) Hospital Repository 10/30/2017 Unknown 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, 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, right [facility] upper limb / Hospital G56.21(ICD-10) Repository 08/16/2017 Unknown M25.511 - Pain in Jesse Lemus Active [place] right shoulder / [facility] M25.511(ICD-10) Hospital Repository 07/11/2017 Unknown F11.20 - Opioid BasalMontserrat nunez Active [place] dependence, Community 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 / Hospital F11.20(ICD-10) Repository 05/17/2017 Unknown I48.2 - Chronic JoppUbaldo mosqueda Active [place] atrial fibrillation Community / I48.2(ICD-10) Hospital Repository PROCEDURES PROCEDURES No Procedure Records FoundRESULTS RESULTS BEDSIDE GLUCOSE Collected: 03/22/2018 Status: F Source: [place] 4:02 PM [facility] REPOSITORY TYPE CODE TESTS RESULT OUT OF RANGE REFERENCE UNITS LAB L501.080 70-110 mg/dL Normal BEDSIDE GLU 107 Result Comment: MANAGEMENT OF PATIENT CARE PER NURSING PROTOCOL Performed By: #### L501.080 #### [facility] Laboratory Point of Care [address] [place] [address] OPERATIVE REPORT Observed: 03/22/2018 Status: F Source: [place] 3:35 PM [facility] REPOSITORY [facility] Medical Records Department [address] [place] [address] Operative Report 03/22/18 1533 MR#: [id number] Acct: [id number] Name: SUSANA WISEMAN Rep #: [id number] : 1955 62 From: True Weathers MD PCP: Ellis KRUEGER,Ruddy Mlcain Status: REG SDC Y Location: [place] [address] Report of Operation Date of Procedure: 03/22/18 Pre-Operative Diagnosis: Left kidney stone Post-Operative Diagnosis: Same Surgery/Procedure Performed:: Left extracorporeal shockwave lithotripsy Description of Surgical Findings:: 62-year-old female who has a stone about 8 mm in size in the lower pole the left kidney today she presents to the hospital for shockwave lithotripsy to treat and break the stone. She understands that we will not place a stent and hopefully the stone will break up successfully enough that she can passing fragments. 62-year-old female taken back to the operating room at the smooth induction of general anesthesia she was placed supine on the table we then localize the stone in the F2 focal point of the lithotripter machine and then we started commencing treatment with the shockwave machine at a rate of 90 went from kilovolts of 5-7 and we delivered a total of 3000 shockwaves to the stone which broke up successfully into the small little pieces at the end of the treatment cycle under fluoroscopy we could not see any more significant stones in the left kidney patient's anesthetic was reversed she is taken back to the PACU in good condition and she will follow-up in a few weeks with a KUB Type of Anesthesia:: General Drains: none - Admit VTE Documentation VTE Present on Admission: No VTE Mechan Device Prophylaxis: SCD's 03/22/18 1535 <Electronically signed by True Weathers MD> Date True Weathers MD CC: True Weathers MD; Ruddy Corral MD Signed DISCHARGE INSTRUCTION Observed: 03/22/2018 Status: F Source: [place] 3:31 PM [facility] REPOSITORY [facility] Medical Records Department [address] [place] [address] Instructions for Home/Discharge Instructions 03/22/18 1530 MR#: [id number] Acct: [id number] Name: SUSANA WISEMAN Rep #: [id number] : 1955 62 From: True Weathers MD PCP: Ellis KRUEGER,Ruddy Mclain Status: REG SDC Discharge Diet: Light diet - advance as tolerated Discharge Activity: Return to Normal Activity Instructions: Shock Wave Lithotripsy Allergies/Adverse Reactions: Allergies flecainide [Flecainide] Allergy (Verified 03/06/18 10:36) Rash Medications to take at Discharge Albuterol Inhaler [Ventolin Hfa] 2 puff INHALATION Q4H PRN PRN 04/20/17 Budesonide/Formoterol 160/4.5 [Symbicort 160/4.5 Mcg Inhaler [...] PO DAILY 04/20/17 warfarin 10 mg tablet 8 mg PO DAILY 05/16/17 Olmesartan/Hydrochlorothiazide [Benicar Hct 40-12.5 MG Tab] 1 tab PO DAILY 02/11/18 Solifenacin Succinate [Vesicare] 5 mg PO DAILY 02/11/18 traZODone [Desyrel] 50 mg PO QHS 02/11/18 Acetaminophen [Tylenol Extra Strength] 500 mg PO Q4H PRN PRN #20 tablet 02/13/18 Ibuprofen 600 mg PO Q6H PRN PRN #20 tablet 02/13/18 Atorvastatin Calcium [Lipitor] 40 mg PO QHS 03/06/18 Acetaminophen [Tylenol Extra Strength] 500 mg PO Q4H PRN PRN 5 Days #20 tablet 03/22/18 Ibuprofen 600 mg PO Q6H PRN PRN #20 tablet 03/22/18 The following prescriptions were given: Acetaminophen [Tylenol Extra Strength] 500 mg PO Q4H PRN PRN 5 Days #20 tablet PRN Reason: Pain Ibuprofen 600 [...] weeks, please call to make an appointment. 03/22/18 1531 <Electronically signed by True Weathers MD> Date True Weathers MD CC: Ruddy Corral MD Signed BEDSIDE GLUCOSE Collected: 03/22/2018 Status: F Source: [place] 1:04 PM [facility] REPOSITORY TYPE CODE TESTS RESULT OUT OF REFERENCE UNITS RANGE LAB L501.080 70-110 mg/dL High BEDSIDE GLU 124 Result Comment: MANAGEMENT OF PATIENT CARE PER NURSING PROTOCOL Performed By: #### L501.080 #### [facility] Laboratory Point of Care [address] [place] [address] PROTIME W/INR Collected: 03/22/2018 Status: F Source: [place] 1:01 PM [facility] REPOSITORY TYPE CODE TESTS RESULT OUT OF REFERENCE UNITS RANGE LAB L9200.1001 11.9-14.4 SEC High PROTIME ISTAT 14.6 Result Comment: Reference Range 11.9 - 14.4 LAB L9200.2000 Normal INR ISTAT 1.20 Result Comment: Critical Value > 3.5 Performed By: #### L9200.0000 #### [facility] [address] [place] [address] ABDOMEN SINGLE VIEW Observed: 03/22/2018 Status: F Source: [place] 12:00 AM [facility] REPOSITORY [facility] Imaging Services [address] [address] Abdomen Single View MR#: [id number] Acct: [id number] Name: SUSANA WISEMAN Rep #: [id number] : 1955 F 62 From: Kevan Friend MD PCP: Ruddy Corral MD, Chi Status: [place] [facility] [place]: Abdomen Single View Date of Exam: 03/22/18 Exam# [id number] Ordering Dr: True Weathers MD STUDY: X-RAY - ABDOMEN/PELVIS REASON FOR EXAM: Female, 62 years old. Preop for kidney stones TECHNIQUE: 3 AP views COMPARISON: 02/12/2018 FINDINGS: There is a 0.8 cm calcification overlying the lower pole of the right kidney and punctate calcifications overlying the lower pole the right kidney There is an unremarkable bowel gas pattern. There is no demonstrated free abdominal air. The visualized liver, spleen and kidneys are grossly normal in size and morphology. Normal soft tissue structures. There are diffuse degenerative changes of the visualized lumbar spine. RAD/Abdomen Single View IMPRESSION: Stable bilateral nephrolithiasis No acute findings Degenerative bony changes Electronically Signed: Kyle Friend MD at 12:49 EST , Service support , CC: True Weathers MD; Ruddy Corral MD Project Admin: Signed BEDSIDE GLUCOSE Collected: 02/13/2018 Status: F Source: [place] 3:27 PM [facility] REPOSITORY TYPE CODE TESTS RESULT OUT OF REFERENCE UNITS RANGE LAB L501.080 70-110 mg/dL High BEDSIDE GLU 126 Result Comment: MANAGEMENT OF PATIENT CARE PER NURSING PROTOCOL Performed By: #### L501.080 #### [facility] Laboratory Point of Care [address] [place] [address] OPERATIVE REPORT Observed: 02/13/2018 Status: F Source: [place] 3:03 PM [facility] REPOSITORY [facility] Medical Records Department [address] [place] [address] Operative Report 02/13/18 1501 MR#: [id number] Acct: [id number] Name: SUSANA WISEMAN Rep #: [id number] : 1955 62 From: True Weathers MD PCP: Ellis KRUEGER,Ruddy Mclain Status: REG SD Y Location: [place] [address] Report of Operation Date of Procedure: 02/13/18 [...] went into the bladder with a 21 Tongan rigid cystoscopy urethroscope the pablo cystoscopy 3070 [...] No VTE Mechan Device Prophylaxis: SCD's 02/13/18 1503 <Electronically signed by True Weathers MD> Date True Weathers MD CC: True Weathers MD; Ruddy Corral MD Signed DISCHARGE INSTRUCTION Observed: 02/13/2018 Status: F Source: [place] 2:59 PM [facility] REPOSITORY [facility] Medical Records Department [address] [place] [address] Instructions for Home/Discharge Instructions 02/13/18 1459 MR#: [id number] Acct: [id number] Name: SUSANA WISEMAN Rep #: [id number] : 1955 62 From: True Weathers MD [...] please call to make an appointment. 02/13/18 7646 <Electronically signed by True Weathers MD> Date True Weathers MD CC: Ruddy Corral MD BEDSIDE GLUCOSE Collected: 02/13/2018 Status: F Source: [place] 12:33 PM [facility] REPOSITORY TYPE CODE TESTS RESULT OUT OF REFERENCE UNITS RANGE LAB L501.080 70-110 mg/dL High BEDSIDE GLU 128 Result Comment: MANAGEMENT OF PATIENT CARE PER NURSING PROTOCOL Performed By: #### L501.080 #### [facility] Laboratory Point of Care [address] [place] [address] PROTIME W/INR Collected: 02/13/2018 Status: F Source: [place] 12:03 PM [facility] REPOSITORY TYPE CODE TESTS RESULT OUT OF REFERENCE UNITS RANGE LAB L9200.1001 11.9-14.4 SEC High PROTIME ISTAT 22.9 Result Comment: Reference Range 11.9 - 14.4 LAB L9200.2000 Normal INR ISTAT 2.00 Result Comment: Critical Value > 3.5 Performed By: #### L9200.0000 #### [facility] Laboratory Point of Care [address] [place] [address] ABDOMEN SINGLE VIEW Observed: 02/12/2018 Status: F Source: [place] 12:40 PM [facility] REPOSITORY [facility] Imaging Services [address] [place] [address] Abdomen Single View MR#: [id number] Acct: [id number] Name: SUSANA WISEMAN Rep #: [id number] : 1955 F 62 From: Jesus Alberto Newton DO PCP: Ellis KRUEGER,Ruddy Mclain Status: REG CLI Study: Abdomen Single View Date of Exam: 02/12/18 Exam# [id number] Ordering Dr: True Weathers MD STUDY: X-RAY [...] CC: True Weathers MD; Ruddy Corral MD Project Admin: Signed DISCHARGE INSTRUCTION Observed: 02/11/2018 Status: F Source: [place] 4:29 PM [facility] REPOSITORY [facility] Medical Records Department [address] [place] [address] Discharge Instruction 02/11/18 1357 MR#: [id number] Acct: [id number] Name: SUSANA WISEMAN Rep #: [id number] : 1955 62 From: Fabián Rodas MD [...] your Primary Care Provider. Call [facility] ([phone]) or report to the closest Emergency Room. Call 911 if necessary. 02/11/18 1628 <Electronically signed by Fabián Rodas MD> Date Fabián Rodas MD Cosigner Signature (If Indicated): Date CC: Ruddy Corral MD EMERGENCY DEPARTMENT Observed: 02/11/2018 Status: F Source: [place] SUMMARY 4:29 PM [facility] REPOSITORY [facility] Medical Records Department [address] [place] [address] Emergency Department Summary 02/11/18 1127 MR#: [id number] Acct: [id number] Name: SUSANA WISEMAN Rep #: [id number] : 1955 62 From: Fabián Rodas MD PCP: Ellis KRUEGER,Ruddy Mclain Status: DEP ER - ER Visit Summary [...] for which she is on Coumadin and qeq-zfkzwcy-fnfifkhxe diabetes. Patient states that 6 AM this [...] on Coumadin This note was generated with Dragon dictation software. It may contain incorrect words, [...] your Primary Care Provider. Call [facility] ([phone]) or report to the closest Emergency Room. Call 911 if necessary. 02/11/18 1629 <Electronically signed by Fabián Rodas MD> Date Fabián Rodas MD Cosigner Signature (If Indicated): Date CC: Ruddy Corral MD URINALYSIS, COMPLETE Collected: 02/11/2018 Status: F Source: [place] 12:00 PM [facility] [...] MUCUS, URINE Performed By: #### L400.0001 #### [facility] [address] [place], [address] ABDOMEN/PELVIS WITHOUT Observed: 02/11/2018 Status: F Source: [place] CONT 11:27 AM [facility] REPOSITORY [facility] Imaging Services [address] [place] [address] Abdomen/Pelvis without Cont MR#: [id number] Acct: [id number] Name: SUSANA WISEMAN Rep #: [id number] : 1955 F 62 From: Kevan Faulkner MD PCP: Ellis KRUEGER,Ruddy Mclain Status: REG ER Study: Abdomen/Pelvis without Cont Date of Exam: 02/11/18 Exam# [id number] Ordering Dr: Fabián Rodas MD STUDY: CT [...] bowel obstruction. The appendix is normal. 3. Zake-dm-fnqrfoyf abdominal atherosclerotic calcific plaquing. There is no demonstrated aneurysm, but this portends some risk for future cardiovascular event, Abdominal Aortic Calcific Deposits Are an Important Predictor of Vascular Morbidity and Mortality; Richard Grier, et al. Circulation, Apr 2000;103:2123-6570. 4. Degenerative changes of the spine and left sacroiliac joint. Electronically Signed: Kyle Faulkner MD at 12:39 EST , Service support , CC: Fabián Rodas MD; Ruddy Corral MD Project Admin: Signed CBC W/DIFF, AUTOMATED Collected: 02/11/2018 Status: [...] Lymph 1.63 Performed By: #### L100.0100 #### [facility] [address] [place], [address] BASIC METABOLIC Collected: 02/11/2018 Status: F Source: [place] PROFILE ([facility]) 10:40 AM [facility] [...] 7 GAP Performed By: #### L500.2500 #### [facility] [address] [place], [address] PROTHROMBIN TIME W/INR Collected: 02/11/2018 Status: F Source: [place] 10:40 AM [facility] REPOSITORY TYPE CODE TESTS RESULT OUT OF RANGE REFERENCE UNITS LAB L300.4150 11.7-14.9 SECONDS High PROTIME 22.9 LAB L300.4200 Normal INR 2.0 Performed By: #### L300.3900 #### [facility] [address] [place], [address] NCS AND/OR EMG Observed: 01/30/2018 Status: F Source: [place] PATIENT 3:18 PM [facility] REPOSITORY [facility] Pulmonary Services/Neurology [address] [place] [address] MR#: [id number] Acct: [id number] Name: SUSANA WISEMAN Rep #: [id number] : 1955 62 From: Jatin Espinoza MD Referring Dr: MERRITT Roman Status: REG CLI Ordering Dr: Date: Location: [facility] Sex: F C NCS and/or EMG Patient [...] please not hesitate to contact me 01/30/18 1338 <Electronically signed by Jatin Espinoza MD> Date Jatin Espinoza MD CC: MERRITT Hazel; Jatin Espinoza; Ruddy Corral MD Date Dictated: 01/30/18 141 Date Transcribed: 01/30/181415 Project Admin: MALLORY Signed SCREENING MAMM (CAD), Observed: 12/29/2017 Status: F Source: [place] BILAT 7:48 AM [facility] REPOSITORY [facility] Imaging Services [address] [place] [address] SCREENING MAMM (CAD), BILAT MR#: [id number] Acct: [id number] Name: SUSANA WISEMAN Rep #: [id number] : 1955 F 62 From: Tariq Kapoor MD PCP: Ellis KRUEGER,Ruddy Mclain Status: REG CLI Study: SCREENING MAMM (CAD), BILAT Date of Exam: 12/29/17 Exam# [id number] Ordering Dr: Ruddy Corral MD MAMMOGRAPHY - [...] delay biopsy of a clinically suspicious abnormality. [id number] Electronically Signed: Tariq Kapoor MD at 9:34 EST Tel [phone], Service support , CC: Ruddy Corral MD Project Admin: Signed ORTHOPEDIC VISIT Observed: 10/30/2017 Status: F Source: [place] REPORT 10:31 AM [facility] REPOSITORY [facility] Orthopaedics AND Sports Medicine [address] [place] [address] OFFICE VISIT Date of Service: 10/30/17 MR#: [id number] Acct: [id number] Name: SUSANA WISEMAN Rep #: [id number] : 1955 Provider: Amanda Hammond DO Age/Sex: 61/F Location: [facility] Status: Signed Intake Intake Visit Reasons: right [...] mg PO .COMPLEX 05/16/17 [History Confirmed 09/09/17] PFSH Medical History Hyperlipidemia (Chronic) Atrial fibrillation [...] AM [facility] REPOSITORY [facility] Imaging Services [address] [place] [address] Hand Min 3 Views MR#: [id number] Acct: [id number] Name: SUSANA WISEMAN Rep #: [id number] : 1955 F 61 From: Rafael Cameron MD PCP: Ellis KRUEGER,Ruddy [facility] Status: REG CLI Study: Hand Min 3 Views Date of Exam: 10/30/17 Exam# [id number] Ordering Dr: Amanda Hammond DO STUDY: X-RAY [...] CC: Amanda Hammond DO; Ruddy Corral MD Project Admin: Signed CBC W/DIFF, AUTOMATED Collected: 09/20/2017 Status: [...] Lymph 1.24 Performed By: #### L100.0100 #### [facility] [place], [address] COMPREHENSIVE METABOLIC Collected: 09/20/2017 Status: F Source: [place] 11:53 AM [facility] [...] 7 Performed By: #### L500.4050, L501.9520 #### [place] [facility] [address] [place], [address] THYROID STIM HORMONE Collected: 09/20/2017 Status: F Source: [place] (TSH) 11:53 AM [facility] REPOSITORY TYPE CODE TESTS RESULT OUT OF RANGE REFERENCE UNITS LAB L501.9520 0.358-3.74 uIU/mL Normal TSH 0.96 Performed By: #### L500.4050, L501.9520 #### [facility] [address] [place], [place], [address] HEPATITIS C ANTIBODIES Collected: 09/20/2017 Status: F Source: [place] 11:53 AM [facility] REPOSITORY TYPE CODE TESTS RESULT OUT OF RANGE REFERENCE UNITS LAB L3100.0650 0.0-0.9 s/co ratio Normal HEP C AB 0.1 Result Comment: Negative: < 0.8 Indeterminate: 0.8 - 0.9 Positive: > 0.9 The CDC recommends that a positive HCV antibody result be followed up with a HCV Nucleic Acid Amplification test (014403). Performed at: [facility] [id number] [place] Encaser: Darrell Pavon PhD, Phone: [phone] Performed By: #### L3100.0625 #### [facility] (refer to report for specific site) refer to report for address and phone number EMERGENCY DEPARTMENT Observed: 09/09/2017 Status: F Source: [place] SUMMARY 11:47 PM [facility] REPOSITORY [facility] Medical Records Department [address] [place] [address] Emergency Department Summary 09/09/17 1731 MR#: [id number] Acct: [id number] Name: SUSANA WISEMAN Rep #: [id number] : 1955 61 From: Fabián Rodas MD PCP: Ellis KRUEGER,Ruddy Mclain Status: DEP ER - ER Visit Summary [...] knee contusion This note was generated with DevHD dictation software. It may contain incorrect words, [...] problems, contact your Primary Care Provider. Call [facility] ([phone]) or report to the closest Emergency Room. Call 911 if necessary. 09/09/17 9844 <Electronically signed by Fabián Rodas MD> Date Fabián Jordan Signature (If Indicated): Date CC: Ruddy Corral MD DISCHARGE INSTRUCTION Observed: 09/09/2017 Status: F Source: [place] 11:47 PM [facility] REPOSITORY [facility] Medical Records Department [address] [place] [address] Discharge Instruction 09/09/17 1850 MR#: [id number] Acct: [id number] Name: SUSANA WISEMAN Rep #: [id number] : 1955 61 From: Fabián Rodas MD [...] your Primary Care Provider. Call [facility] ([phone]) or report to the closest Emergency Room. Call 911 if necessary. 09/09/17 4367 <Electronically signed by Fabián Rodas MD> Date Fabián Jordan Signature (If Indicated): Date CC: Ruddy Corral MD KNEE 3 VIEWS Observed: 09/09/2017 Status: F Source: RIYA 5:29 PM [facility] REPOSITORY [facility] Imaging Services [address] [place] [address] Knee 3 Views MR#: [id number] Acct: [id number] Name: SUSANA WISEMAN Rep #: [id number] : 1955 F 61 From: Fox Ordaz MD PCP: Ruddy Corral MD, Chi Status: REG ER Study: Knee 3 Views Date of Exam: 09/09/17 Exam# [id number] Ordering Dr: Fabián Rodas MD STUDY: X-RAY [...] CC: Fabián Rodas MD; Ruddy Corral MD Project Admin: Signed PELVIS 1 OR 2 VIEWS Observed: 09/09/2017 Status: F Source: RIYA 5:29 PM [facility] REPOSITORY [facility] Imaging Services [address] [place] [address] Pelvis 1 or 2 Views MR#: [id number] Acct: [id number] Name: SUSANA WISEMAN Rep #: [id number] : 1955 F 61 From: Fox Ordaz MD PCP: Ruddy Corral MD, Chi Status: REG ER Study: Pelvis 1 or 2 Views Date of Exam: 09/09/17 Exam# [id number] Ordering Dr: Fabián Rodas MD STUDY: X-RAY [...] CC: Fabián Rodas MD; Ruddy Corral MD Project Admin: Signed FEMUR MIN 2 VIEWS Observed: 09/09/2017 Status: F Source: [place] 5:29 PM [facility] REPOSITORY [facility] Imaging Services [address] [place] [address] Femur Min 2 Views MR#: [id number] Acct: [id number] Name: SUSANA WISEMAN Rep #: [id number] : 1955 F 61 From: Fox Ordaz MD PCP: Ellis KRUEGER,Ruddy Mclain Status: REG ER Study: Femur Min 2 Views Date of Exam: 09/09/17 Exam# [id number] Ordering Dr: Fabián Rodas MD STUDY: X-RAY [...] CC: Fabián Rodas MD; Ruddy Corral MD Project Admin: Signed ORTHOPEDIC VISIT Observed: 08/23/2017 Status: F Source: [place] REPORT 9:12 AM [facility] Orthopa[facility]ics AND Sports Medicine [address] [place] [address] OFFICE VISIT Date of Service: 08/16/17 MR#: [id number] Acct: [id number] Name: SUSANA WISEMAN Rep #: [id number] : 1955 Provider: Jesse Lemus DO Age/Sex: 61/F Location: [facility] Status: Signed Intake Intake Visit Reasons: bilateral [...] be performed we will refer to the [place] [facility] or another outside orthopedic group. [...] AM [facility] REPOSITORY [facility] Imaging Services [address] [place] [address] Shoulder min 2 Views MR#: [id number] Acct: [id number] Name: SUSANA WISEMAN Rep #: [id number] : 1955 F 61 From: Adria Louis DO PCP: Ruddy Corral MD, Chi Status: REG CLI Study: Shoulder min 2 Views Date of Exam: 08/16/17 Exam# [id number] Ordering Dr: Jesse Lemus DO STUDY: X-RAY [...] Adria Louis DO at 17:07 EDT Tel [phone], Service support , CC: Jesse Lemus DO; Ruddy Corral MD Project Admin: Signed URINE DRUG SCREEN Collected: 07/11/2017 Status: F Source: RIYA (VISTA) 3:40 PM [facility] REPOSITORY Order Comment: Comments: [id number] URINE DRUG SCREEN RUN LOWEST TEST List [...] Normal NEGATIVE Performed By: #### L505.5000 #### [facility] [address] [place], [address] MISCELLANEOUS LAB Collected: 07/11/2017 Status: F Source: [place] PROCEDURE 3:40 PM [facility] REPOSITORY Order Comment: Comments: [id number] URINE DRUG SCREEN RUN LOWEST TEST Test(s) Ordered: [id number] URINE DRUG SCREEN RUN LOWEST TEST TYPE CODE TESTS RESULT OUT OF RANGE REFERENCE UNITS LAB L801.1541 Normal [facility] TEST Result Comment: TEST RESULT UNITS REF INTERVAL [id number] 6+Oxycodone-Bund Amphetamines, Urine Negative ng/mL Mefjjc=3200 Amphetamine test includes Amphetamine and Methamphetamine. Barbiturate Negative ng/mL Aazrou=163 Benzodiazepines Negative ng/mL Bedtdq=205 Cannabinoids Negative ng/mL Cutoff=20 Cocaine (Metabolite) Negative ng/mL Fyfnmv=947 Opiates Positive ng/mL Tbhxaz=167 Opiate test includes Codeine, Morphine, Hydromorphone, Hydrocodone. Please Note: Confirmation performed by Mass Spectrometry Codeine Negative Ewnuyk=174 Morphine Negative Lvvsbn=798 Hydromorphone Negative Thhmnf=296 Hydrocodone Positive Hydrocodone Confirm 838 ng/mL Aoyvso=780 Oxycodone/Oxymorphone, Urine Negative ng/mL Ntxbaf=594 Test includes Oxycodone and Oxymorphone TESTING PERFORMED AT [facility]. ORIGINAL REPORT ON FILE IN LAB CONTAINS ADDITIONAL TEST SITE INFORMATION. Performed By: #### L801.1541 #### [facility] [address] [place], [address] LUMBAR SPINE 2 OR 3 Observed: 05/16/2017 Status: F Source: [place] VIEWS 1:47 PM [facility] REPOSITORY [facility] Imaging Services [address] [place] [address] Lumbar Spine 2 or 3 Views MR#: [id number] Acct: [id number] Name: SUSANA WISEMAN Rep #: [id number] : 1955 F 61 From: Jesus Alberto Newton DO PCP: Ellis KRUEGER,Control4 Status: REG CLI Study: Lumbar Spine 2 or 3 Views Date of Exam: 05/16/17 Exam# [id number] Ordering Dr: Montserrat Elias MD STUDY: X-RAY [...] CC: Montserrat Elias MD; Ruddy Corral MD Project Admin: Signed 12 LEAD ELECTROCARDIOGRAM Observed: 04/24/2017 Status: F Source: [place] 1:10 PM [facility] REPOSITORY [facility] Cardiovascular Services [address] [place] [address] 12 Lead EKG 04/20/17711 MR#: [id number] Acct: [id number] Name: SUSANA WISEMAN Rep #: [id number] : 1955 61 From: Stuart Alberto MD Attending Dr: Ubaldo Kilpatrick DO Status: DIS TRISTON Ordering Dr: Fabián Rodas MD Date: 04/20/17 Location: [facility] Sex: F C Admitted: 04/20/17 Test Reason [...] normal ECG Confirmed by STUART ALBERTO ([id number]), telegraph editor CORAZON HENLEY ([id number]) on 04/24/2017 1:10:00 PM Referred By: JOEL Confirmed By:STUART ALBERTO 04/24/17 1310 Date Stuart Alberto MD CC: Fabián Rodas MD; Ruddy Corral MD Signed ECHOCARDIOGRAM COMPLETE Observed: 04/21/2017 Status: F Source: [place] 11:42 AM [facility] REPOSITORY [facility] Cardiovascular Services [address] [place] [address] Echo Complete 04/21/1709 MR#: [id number] Acct: [id number] Name: SUSANA WISEMAN Rep #: [id number] : 1955 61 From: Stuart Alberto MD Attending Dr: Ubaldo Kilpatrick DO Status: DIS TRISTON Ordering Dr: Ubaldo Kilpatrick DO Date: 04/20/17 Location: [facility] Sex: F C Admitted: 04/20/17 Reason For [...] Ruddy Corral Chi Performed By: Emily Pederson, CARLOS, RVT 04/21/17 1142 Date Stuart Alberto MD CC: Ubaldo Kilpatrick DO; Ruddy Corral MD Date Dictated: 04/21/17 0809 Date Transcribed: 04/21/17 114 Project Admin: Signed DISCHARGE SUMMARY Observed: 04/21/2017 Status: F Source: [place] 8:35 AM [facility] REPOSITORY [facility] Medical Records Department [address] [facility] [place] [address] Discharge Summary 04/21/17 0833 MR#: [id number] Acct: [id number] Name: SUSANA WISEMAN Rep #: [id number] : 1955 61 From: Ubaldo Kilpatrick DO PCP: Ruddy Corral MD, Chi Status: ADM TRISTON Y Location: [place] [address] Discharge Date and Diagnosis - Problem List [...] Tariq Kapoor MD at 8:22 EST Tel [phone], Service support , Brain MRI 04/20/17 14:06 [...] does have recurrent symptoms. [] Discharge Diet: 1999 Calorie Control Diet Discharge Activity: Return to [...] that apply): None applicable Code Visit OBSV E AND M: 44646 Observation care discharge 04/21/17 0835 <Electronically signed by Ubaldo Kilpatrick DO> Date Ubaldo Kilpatrick DO Cosigner Signature (if applicable): Date CC: Ubaldo Kilpatrick DO; Ruddy Corral MD Signed DISCHARGE INSTRUCTION Observed: 04/21/2017 Status: F Source: [place] 8:33 AM [facility] REPOSITORY [facility] Medical Records Department [address] [place] [address] Instructions for Home/Discharge Instructions 04/21/17 0830 MR#: [id number] Acct: [id number] Name: SUSANA WISEMAN Rep #: [id number] : 1955 61 From: Ubaldo Kilpatrick DO [...] PROTOCOL Performed By: #### L501.080 #### [place] [facility] Laboratory Point of Care [address] [place] [address] CBC W/DIFF, AUTOMATED Collected: 04/21/2017 Status: F [...] Lymph 2.10 Performed By: #### L100.0100 #### [facility] [address] [place], [place], [address] PROTHROMBIN TIME W/INR Collected: 04/21/2017 Status: F Source: [place] 5:40 AM [facility] REPOSITORY TYPE CODE TESTS RESULT OUT OF RANGE REFERENCE UNITS LAB L300.4150 11.7-14.9 SECONDS High PROTIME 19.3 LAB L300.4200 Normal INR 1.7 Performed By: #### L300.3900 #### [facility] [address] [place], [address] BASIC METABOLIC Collected: 04/21/2017 Status: F Source: [place] PROFILE (BMP) 5:40 AM [facility] [...] 8 Performed By: #### L500.2500, L500.4100 #### [facility] [address] [place], [place], [address] LIPID PROFILE Collected: 04/21/2017 Status: F Source: [place] 5:40 [...] 30 Performed By: #### L500.2500, L500.4100 #### [facility] [address] [place], [address] BEDSIDE GLUCOSE Collected: 04/20/2017 Status: F Source: [place] 8:53 PM [facility] REPOSITORY TYPE CODE TESTS RESULT OUT OF REFERENCE UNITS RANGE LAB L501.080 70-110 mg/dL High BEDSIDE GLU 135 Result Comment: MANAGEMENT OF PATIENT CARE PER NURSING PROTOCOL Performed By: #### L501.080 #### [facility] Point of Care [address] [place], [place] [address] BEDSIDE GLUCOSE Collected: 04/20/2017 Status: F Source: [place] 4:34 PM [facility] REPOSITORY TYPE CODE TESTS RESULT OUT OF REFERENCE UNITS RANGE LAB L501.080 70-110 mg/dL High BEDSIDE GLU 127 Result Comment: MANAGEMENT OF PATIENT CARE PER NURSING PROTOCOL Performed By: #### L501.080 #### [facility] Point of Care [address] [place] [address] EMERGENCY DEPARTMENT Observed: 04/20/2017 Status: F Source: [place] SUMMARY 4:23 PM [facility] REPOSITORY [facility] Medical Records Department [address] [place] [address] Emergency Department Summary 04/20/17 0713 MR#: [id number] Acct: [id number] Name: SUSANA WISEMAN Rep #: [id number] : 1955 61 From: Fabián Rodas MD PCP: Ruddy Corral MD, Chi Status: ADM TRISTON - ER Visit Summary Date of Service: 04/20/17 Chief Complaint: Dizzy meaning off balance History of Present Illness: The patient is a 61 F is a history of prior A. fib, DVT and PE, zjf-ccfahga-jwiprpajy diabetes, hypertension and COPD. She is on [...] intact. She has 5 out of 5 tanner rotary drum continuous process strength bilaterally. Dorsi plantar flexion is intact. [...] of DVT and PEs and history of ddc-vkngnge-jvikmtrxv diabetes This note was generated with DevHD dictation software. It may contain incorrect words, [...] your Primary Care Provider. Call [facility] ([phone]) or report to the closest Emergency Room. Call 911 if necessary. 04/20/17 3943 <Electronically signed by Fabián Rodas MD> Date Fabián Rodas MD Cosigner Signature (If Indicated): Date CC: Ruddy Corral MD HISTORY AND PHYSICAL Observed: 04/20/2017 Status: F Source: [place] EXAM 2:52 PM [facility] REPOSITORY [facility] Medical Records Department [address] [place] [address] History and Physical 04/20/17 1444 MR#: [id number] Acct: [id number] Name: SUSANA WISEMAN Rep #: [id number] : 1955 61 From: Ubaldo Kilpatrick DO PCP: Ellis KRUEGER,Ruddy Mclain Status: ADM TRISTON Y Location: [place] [address] Problem List (1) Dizziness Status: Acute (2) [...] Tariq Kapoor MD at 8:22 EST Tel [phone], Service support , Laboratory Results - last [...] anticoagulation Code Visit OBSV E AND M: 61110 Initial observation care L3 04/20/17 1452 <Electronically signed by Ubaldo Kilpatrick DO> Date Ubaldo Kilpatrick DO Cosigner Signature: Date (if applicable) CC: Ubaldo Kilpatrick DO; Ruddy Corral MD Signed MRA NECK WITH AND W/O Observed: 04/20/2017 Status: F Source: [place] CONTRAST 2:07 PM [facility] REPOSITORY [facility] Imaging Services [address] [place] [address] MRA Neck WITH and W/O Contrast MR#: [id number] Acct: [id number] Name: SUSANA WISEMAN Rep #: [id number] : 1955 F 61 From: Corazon Holm MD PCP: Ruddy Corral MD, Chi Status: ADM TRISTON Study: MRA Neck WITH and W/O Contrast Date of Exam: 04/20/17 Exam# [id number] Ordering Dr: Ubaldo Kilpatrick DO MRA Neck WO/W Contrast INDICATION: vertigo SINCE THIS A.M. COMPARISON: None TECHNIQUE: MR angiogram of the neck without and with IV contrast and 2-D ljfy-bz-jvhaoz technique with 3-D reformatted images. FINDINGS: Study [...] CC: Ubaldo Kilpatrick DO; Ruddy Corral MD Project Admin: Signed MRA HEAD ONLY WITHOUT Observed: 04/20/2017 Status: F Source: [place] CONTRAST 2:07 PM [facility] REPOSITORY [facility] Imaging Services [address] [place] [address] MRA Head ONLY without Contrast MR#: [id number] Acct: [id number] Name: SUSANA WISEMAN Rep #: [id number] : 1955 F 61 From: Corazon Holm MD PCP: Ruddy Corral MD, Chi Status: ADM TRISTON Study: MRA Head ONLY without Contrast Date of Exam: 04/20/17 Exam# [id number] Ordering Dr: Ubaldo Kilpatrick DO MRA Head W/O Contrast INDICATION: vertigo SINCE THIS A.M. COMPARISON: None TECHNIQUE: MR angiogram of the [place] and 3-D piun-ku-kwmxej technique with 3-D reformatted images. FINDINGS: There [...] signed by: Corazon Holm MD Electronically Signed: oCrazon Holm MD at 16:13 EST Tel , Service support , CC: Ubaldo Kilpatrick DO; Ruddy Corral MD Project Admin: Signed BRAIN W/WO CONTRAST Observed: 04/20/2017 Status: F Source: [place] 2:07 PM [facility] REPOSITORY [facility] Imaging Services [address] [place] [address] Brain W/WO Contrast MR#: [id number] Acct: [id number] Name: SUSANA WISEMAN Rep #: [id number] : 1955 F 61 From: Corazon Holm MD PCP: Ellis KRUEGER,Ruddy Mclain Status: ADM TRISTON Study: Brain W/WO Contrast Date of Exam: 04/20/17 Exam# [id number] Ordering Dr: Ubaldo Kilpatrick DO MR Brain [...] age-appropriate MRI examination of the brain. at 5256 Reported and signed by: Corazon Holm MD Electronically Signed: Corazon Holm MD at 20:14 EST Tel , Service support , CC: Ubaldo Kilpatrick DO; Ruddy Corral MD Project Admin: Signed PROTHROMBIN TIME W/INR Collected: 04/20/2017 Status: F Source: [place] 7:35 AM [facility] REPOSITORY TYPE CODE TESTS RESULT OUT OF RANGE REFERENCE UNITS LAB L300.4150 11.7-14.9 SECONDS High PROTIME 15.5 LAB L300.4200 Normal INR 1.3 Performed By: #### L300.3900 #### [facility] [address] [place], [address] BRAIN/HEAD WITHOUT Observed: 04/20/2017 Status: F Source: [place] CONTRAST 7:21 AM [facility] REPOSITORY [facility] Imaging Services [address] [place] [address] Brain/Head without Contrast MR#: [id number] Acct: [id number] Name: SUSANA WISEMAN Rep #: [id number] : 1955 F 61 From: Tariq Kapoor MD PCP: Ruddy Corral MD, Chi Status: REG ER Study: Brain/Head without Contrast Date of Exam: 04/20/17 Exam# [id number] Ordering Dr: Fabián Rodas MD STUDY: CT [...] Tariq Kapoor MD at 8:22 EST Tel [phone], Service support , CC: Fabián Rodas MD; Ruddy Corral MD Project Admin: Signed CBC W/DIFF, AUTOMATED Collected: 04/20/2017 Status: [...] Lymph 1.85 Performed By: #### L100.0100 #### [facility] [address] [facility] [place], [address] BASIC METABOLIC Collected: 04/20/2017 Status: F Source: [place] PROFILE (BMP) 7:10 AM [facility] [...] 9 GAP Performed By: #### L500.2500 #### [facility] [address] [facility] [address] [place], [address] ALLERGIES ALLERGIES DATE TYPE / CODE NAME / CODE REACTION SEVERITY SOURCE 03/06/2018 Drug flecainide/F Rash Unknown [place] [facility] Allergy/4160 [id number]( Hospital [address]63(SNOMED NORM) Repository CT) ENCOUNTERS ENCOUNTERS ADMIT/DISCHARGE ACCOUNT ADMITTING ENCOUNTER LOCATION SOURCE NUMBER CLASS 03/22/2018/ [id number] Ambulatory [place] 9 0 [facility] ing:SDCRoom: Repository AC04 02/13/2018/ [id number] Ambulatory [place] 8 8 [facility] ing:SDCRoom: Repository AC16 02/12/2018 [id number] Ambulatory [place] 6 [facility] ing:RAD Repository 02/11/2018/ [id number] Emergency [place] 8 5 [facility] ing:ED Repository 01/30/2018 [id number] Ambulatory Riya [place] 5 [facility] ing:PSN Repository 12/29/2017 [id number] Ambulatory [place]ya [place] 4 [facility] ing:OPBI Repository 10/30/2017 [id number] Ambulatory [place] 1 [facility] ing:HPRAD Repository 10/30/2017/ [id number] Ambulatory BMSBuilding:B [place] 8 3 [place] Repository 09/20/2017 [id number] Ambulatory [place] 6 [facility] ing:POLAB3 Repository 09/09/2017/ [id number] Emergency Riya [place] 8 6 [facility] ing:ED Repository 08/16/2017 [id number] Ambulatory [place] 7 [facility] ing:HPRAD Repository 08/16/2017/ [id number] Ambulatory BMSBuilding:B [place] 8 0 [place] Repository 07/11/2017 [id number] Ambulatory [place] 3 [facility] ing:LAB Repository 05/18/2017 [id number] Ambulatory BMSBuilding:B [place] 5 [facility] Repository 05/16/2017 [id number] Ambulatory [place] 7 [facility] ing:RAD Repository 04/20/2017/ [id number] Ubaldo Kilpatrick Ambulatory Riya [place] 8 6 [facility] ing:PCURoom: Repository [id number]: 1 04/20/2017 [id number] Joppjaylin, Ubaldo Ambulatory BMSBuilding:B [place] 8 [place] Repository 04/20/2017 [id number] Jocedric Ubaldo Ambulatory BMSBuilding:B [place] 9 [place] Repository 04/20/2017/ [id number] Ambulatory BMSBuilding:W [place] 8 1 [facility] Repository PAYERS PAYERS ENCOUNTER GUARANTOR PAYER SUBSCRIBER SOURCE 03/22/2018 SUSANA K Primary SUSANA K [place] [id number] [place] Insurance:MEDICARE BYRDDOB: [facility] [id number] Cross [facility] [address]Vkh: Number: Repository [id number] (HP) Date:2018-02-14 03/22/2018 Secondary SUSANA K [place] [facility] BYRDDOB: [facility] Number: [id number] Hospital [id number] Repository Date:5869-03-42[address], [place] [address]BE: 03/22/2018 Tertiary NOT GIVENUNK [place] Insurance:SELF PAY [facility] Number: Effective Repository Date:2018-02-14 02/13/2018 SUSANA K Primary SUSANA K [place] [id number] NATHANIEL Insurance:MEDICARE BYRDDOB: [place] [address] [place] [facility] [id number] Cross Hospital [address]Wlc: Number: Repository [id number] (HP) Date:2018-02-12 02/13/2018 Secondary SUSANA K [place] [facility] BYRDDOB: Community cy Number: [id number] Hospital [id number] Repository Date:9454-25-52[address], [place] [address]VS: 02/13/2018 Tertiary NOT GIVENUNK [place] Insurance:SELF PAY [facility] Number: Effective Repository Date:2018-02-12 02/12/2018 SUSANA K Primary SUSANA K [place] [id number] NATHANIEL Insurance:MEDICARE BYRDDOB: Community [facility]PT [facility] [id number] Cross Hospital [address]Ovu: Number: Repository [id number] (HP) Date:2018-02-12 02/12/2018 Secondary SUSANA K [place] Insurance:CHAMPVAPoli BYRDDOB: Community cy Number: [id number] Hospital [id number] Repository Date:7184-94-31GY [address], [place] [address]BJ: 02/12/2018 Tertiary NOT GIVENUNK [place] Insurance:SELF PAY [facility] Number: Effective Repository Date:2018-02-12 02/11/2018 SUSANA K Primary SUSANA K [place] [id number] NATHANIEL Insurance:MEDICARE BYRDDOB: Community [facility]PT [facility] [id number] Cross Hospital [address]Dah: Number: Repository [id number] (HP) Date:2018-02-11 02/11/2018 Secondary SUSANA K [place] Insurance:CHAMPVAPoli BYRDDOB: Community cy Number: [id number] Hospital [id number] Repository Date:8829-38-77[address], [place] [address]SX: 02/11/2018 Tertiary NOT GIVENUNK [place] Insurance:SELF PAY [facility] Number: Effective Repository Date:2018-02-11 01/30/2018 SUSANA K Primary SUSANA K [place] [id number] NATHANIEL Insurance:MEDICARE BYRDDOB: Community [place] [address] [place] [facility] [id number] Cross Hospital [address]Bkc: Number: Repository [id number] (HP) Date:2017-10-31 01/30/2018 Secondary SUSANA K [place] Insurance:CHAMPVAPoli BYRDDOB: Community cy Number: [id number] Hospital [id number] Repository Date:1778-63-46[address], [place] [address]JC: 01/30/2018 Tertiary NOT GIVENUNK [place] Insurance:SELF PAY [facility] Number: Effective Repository Date:2017-10-31 12/29/2017 SUSANA K Primary SUSANA K [place] [id number] NATHANIEL Insurance:MEDICARE BYRDDOB: [address] [id number] Cross Hospital [address]Qcr: Number: Repository [id number] (HP) Date:2017-11-16 12/29/2017 Secondary SUSANA K [place] Insurance:[facility] BYRDDOB: Community cy Number: [id number] Hospital [id number] Repository Date:1462-85-62[address], [place] [address]UK: 12/29/2017 Tertiary NOT GIVENUNK [place] Insurance:SELF PAY [facility] Number: Effective Repository Date:2017-11-16 10/30/2017 SUSANA K Primary SUSANA K [place] [id number] NATHANIEL Insurance:MEDICARE BYRDDOB: Community LNA [address] [facility] [id number] Cross Hospital [address]Bww: Number: Repository [id number] (HP) Date:2017-10-30 10/30/2017 Secondary SUSANA K [place] Insurance:[facility] BYRDDOB: Community cy Number: [id number] Hospital [id number] Repository Date:7234-47-97ZF [address]LFQGKD, [place] [address]ZF: 10/30/2017 Tertiary NOT GIVENUNK [place] Insurance:SELF PAY [facility] Number: Effective Repository Date:2017-10-30 10/30/2017 SUSANA K Primary SUSANA K [place] [id number] NATHANIEL Insurance:MEDICARE BYRDDOB: Community LNAPT [address] olicy [id number] Cross Hospital [address]Ijy: Number: Repository [id number] (HP) Date:2017-10-15 10/30/2017 Secondary SUSANA K [place] Insurance:CHAMPVAPoli BYRDDOB: Community cy Number: [id number] Hospital [id number] Repository Date:[id number] [address], [place] [address]IS: 10/30/2017 Tertiary NOT GIVENUNK Riya Insurance:SELF PAY [facility] Effective Rep[facility] Date:2017-10-30 09/20/2017 SUSANA K Primary SUSANA K Riya [id number] NATHANIEL Insurance:MEDICARE BYRDDOB: Community [address] olicy [id number] Cross Hospital [address]Mgy: Number: Repository [id number] (HP) Date:2017-09-20 09/20/2017 Secondary SUSANA K [place] Insurance:CHAMPVAPoli BYRDDOB: Community cy Number: [id number] Hospital [id number] Repository Date:8127-54-02GF [address], [place] [address]QG: 09/20/2017 Tertiary NOT GIVENUNK [place] Insurance:SELF PAY [facility] Number: Effective Repository Date:2017-09-20 09/09/2017 SUSANA K Primary SUSANA K [place] [id number] NATHANIEL Insurance:MEDICARE BYRDDOB: Community [address] PART A [facility] [id number] Cross Hospital [address]Pzf: Number: Repository [id number] (HP) Date:2017-09-09 09/09/2017 Secondary SUSANA K [place] Insurance:CHAMPVAPoli BYRDDOB: Community cy Number: [id number] Hospital [id number] Repository Date:4725-56-23YD [address], [place] [address]DF: 09/09/2017 Tertiary NOT GIVENUNK Riya Insurance:SELF PAY [facility] Number: Effective Repository Date:2017-09-09 08/16/2017 SUSANA K Primary SUSANA K [place] [id number] NATHANIEL Insurance:MEDICARE BYRDDOB: Community L[place] PART A [facility] [id number] Cross Hospital [address]Wcy: Number: Repository [id number] (HP) Date:2017-08-16 08/16/2017 Secondary SUSANA K [place] Insurance:CHAMPVAPoli BYRDDOB: Community cy Number: [id number] Hospital [id number] Repository Date:2595-80-99TZ [address], [place] [address]UL: 08/16/2017 Tertiary NOT GIVENUNK [place] Insurance:SELF PAY [facility] Number: Effective Repository Date:2017-08-16 08/16/2017 SUSANA K Primary SUSANA K [place] [id number] NATHANIEL Insurance:MEDICARE BYRDDOB: [facility] [id number] Cross Hospital [address]Cfl: Number: Repository [id number] (HP) Date:2017-07-17 08/16/2017 Secondary SUSANA K [place] Insurance:CHAMPVAPoli BYRDDOB: Community cy Number: [id number] Hospital [id number] Repository Date:2366-74-41CL [address], [place] [address]CS: 08/16/2017 Tertiary NOT GIVENUNK [place] Insurance:SELF PAY [facility]: Effective Repository Date:2017-08-16 07/11/2017 SUSANA K Primary SUSANA K [place] [id number] NATHANILE Insurance:MEDICARE BYRDDOB: Community [address] PART A [facility] [id number] Cross Hospital [address]Wqb: Number: Repository [id number] () Date:2017-07-11 07/11/2017 Secondary SUSANA K [place] Insurance:CHAMPVAPoli BYRDDOB: Community cy Number: [id number] Hospital [id number] Repository Date:8661-77-02LS [address], [place] [address]GK: 07/11/2017 Tertiary NOT GIVENUNK [place] Insurance:SELF PAY [facility] Number: Effective Repository Date:2017-07-11 05/18/2017 SUSANA K Primary SUSANA K [place] [id number] NATHANIEL Insurance:CHAMPVAPoli BYRDDOB: Community L[place] [place], [place] Number: [id number] Cross Hospital [address]Uba: [id number] Repository Date:8778-44-02AP [address]) [address], [place] [address]OS: 05/18/2017 Secondary SUSANA K [place] Insurance:MEDICARE BYRDDOB: Community PART A [facility] [id number] Hospital Number: Repository [id number] Date:2017-01-31 05/18/2017 Tertiary NOT GIVENUNK [place] Insurance:SELF PAY [facility] Number: Effective Repository Date:2017-01-31 05/16/2017 SUSANA K Primary SUSANA K [place] [id number] NATHANIEL Insurance:MEDICARE BYRDDOB: Community [address] [facility] [id number] Cross Hospital [address]Lee: Number: Repository [id number] (HP) Date:2017-05-16 05/16/2017 Secondary SUSANA K [place] Insurance:CHAMPVAPoli BYRDDOB: Community cy Number: [id number] Hospital [id number] Repository Date:3184-10-13JA [address], [place] [address]CN: 05/16/2017 Tertiary NOT GIVENUNK [place] Insurance:SELF PAY [facility] Number: Effective Repository Date:2017-05-16 04/20/2017 SUSANA K Primary SUSANA K [place] [id number] [place]ANI[place] Insurance:MEDICARE BYRDDOB: Community [address] [facility] [id number] Cross Hospital [address]Evw: Number: Repository [id number] () Date:2017-04-20 04/20/2017 Secondary SUSANA K [place] Insurance:MELISSAVAPoli BYRDDOB: Community cy Number: [id number] Hospital [id number] Repository Date:0395-47-01CW [address], [place] [address]XP: 04/20/2017 Tertiary NOT GIVENUNK [place] Insurance:SELF PAY [facility] Number: Effective Repository Date:2017-04-20 04/20/2017 SUSANA K Primary SUSANA K [place] [id number] NATHANIEL Insurance:MEDICARE BYRDDOB: Community [address] PART A [facility] [id number] Cross Hospital [address]Ufh: Number: Repository [id number] (HP) Date:2017-04-20 04/20/2017 Secondary SUSANA K [place] [facility] Community cy Number: [id number] Hospital [id number] Repository Date:5783-96-56XQ [address], [place] [address]SR: 04/20/2017 Tertiary NOT GIVENUNK [place] Insurance:SELF PAY [facility] Number: Effective Repository Date:2017-04-20 04/20/2017 SUSANA K Primary SUSANA K [place] [id number] NATHANIEL Insurance:MEDICARE BYRDDOB: [facility] [id number] Cross Hospital [address]Uhd: Number: Repository [id number] (HP) Date:2017-04-20 04/20/2017 Secondary SUSANA K [place] Insurance:CHAMPVAPoli BYRDDOB: Community cy Number: [id number] Hospital [id number] Repository Date:4288-61-15RU [address], [place] [address]EJ: 04/20/2017 Tertiary NOT GIVENUNK [place] Insurance:SELF PAY [facility] Number: Effective Repository Date:2017-04-20 04/20/2017 SUSANA K Primary SUSANA K [place] [id number] [place] Insurance:MEDICARE BYRDDOB: [address], PART [address] [facility] [id number] Cross Hospital [address]Kef: Number: Repository [id number] (HP) Date:2017-04-20 04/20/2017 Secondary SUSANA K [place] Insurance:CHAMPVAP[place] BYRDDOB: Community cy Number: [id number] Hospital [id number] Repository Date:8962-01-34CY [address], [place] [address]XY: 04/20/2017 Tertiary NOT GIVENUNK [place] Insurance:SELF PAY [facility] Number: Effective Repository Date:2017-04-20
== END 2018-02-13 16:08 | disposition home or self-care (01) ==
LOC: SDC 11:42 → AC 11:43
PROVIDERS: Family Provider Family Medicine Geriatric Medicine; PCP Family Medicine Geriatric Medicine; Referring Provider Urology; Visit Provider Urology
PROC: 0TJ98ZZ Inspection of Ureter, Via Natural or Artificial Opening Endoscopic (ICD-10-PCS; CPT 52352; principal; 2018-02-13 14:35)
DX: N20.1 Calculus of ureter (principal); E66.9 Obesity, unspecified; N81.10 Cystocele, unspecified; N81.6 Rectocele; I10 Essential (primary) hypertension; E11.9 Type 2 diabetes mellitus without complications; Z87.442 Personal history of urinary calculi; G25.81 Restless legs syndrome; Z79.01 Long term (current) use of anticoagulants; E78.00 Pure hypercholesterolemia, unspecified; Z86.718 Personal history of other venous thrombosis and embolism; F32.9 Major depressive disorder, single episode, unspecified; I48.91 Unspecified atrial fibrillation; G47.30 Sleep apnea, unspecified; Z68.41 Body mass index [BMI] 40.0-44.9, adult
CPT/HCPCS: 52356; 36416; 82962; 85610; J7120; C1769; J2405

== ENCOUNTER 2018-03-22 12:24 | Day surgery (SDC) | payer MEDICARE, OTHER, SELFPAY ==
--- NOTE | 2018-03-22 12:30 | RAD_ITS ---
STUDY: X-RAY - ABDOMEN/PELVIS REASON FOR EXAM: Female, 62 years old. Preop for kidney stones TECHNIQUE: 3 AP views COMPARISON: 02/12/2018 FINDINGS: There is a 0.8 cm calcification overlying the lower pole of the right kidney and punctate calcifications overlying the lower pole the right kidney There is an unremarkable bowel gas pattern. There is no demonstrated free abdominal air. The visualized liver, spleen and kidneys are grossly normal in size and morphology. Normal soft tissue structures. There are diffuse degenerative changes of the visualized lumbar spine. RAD/Abdomen Single View IMPRESSION: Stable bilateral nephrolithiasis No acute findings Degenerative bony changes Electronically Signed: Kyle Friend MD at 12:49 EST , Service support ,
[2018-03-22 13:00] VITALS: BP 131/62; PULSE 76; RESP 18; TEMP 36.6; O2SAT 97; BMI 39.8
[2018-03-22 13:10] LABS: Prothrombin Time Fingerstick 14.6 SEC (11.9-14.4)
[2018-03-22 13:31] LABS: Bedside Glucose 124 mg/dL (70-110)
[2018-03-22] MEDS: Cefazolin 2 GM in 0.9% Normal Saline 100 ML IV (14:40)
[2018-03-22] MEDS: Ketorolac 15 MG/ML Vial IV (15:31)
--- NOTE | 2018-03-22 15:31 | DCINST_ITS ---
Discharge Diet: Light diet - advance as tolerated Discharge Activity: Return to Normal Activity Instructions: Shock Wave Lithotripsy Allergies/Adverse Reactions: Allergies flecainide [Flecainide] Allergy (Verified 03/06/18 10:36) Rash Medications to take at Discharge Albuterol Inhaler [Ventolin Hfa] 2 puff INHALATION Q4H PRN PRN 04/20/17 Budesonide/Formoterol 160/4.5 [Symbicort 160/4.5 Mcg Inhaler (SP)] 2 puff INHALATION BID 04/20/17 Calcium Carbonate [Calcium] 2 tab PO DAILY 04/20/17 Celecoxib [Celebrex] 200 mg PO DAILY 04/20/17 Metformin HCl [Glucophage] 1,000 mg PO BIDCM 04/20/17 Pramipexole Di-HCl [Mirapex] 0.5 mg PO BID 04/20/17 Vit A/Vit C/Vit E/Zinc/Copper [Preservision Areds Softgel] 1 ea PO DAILY 04/20/17 Vortioxetine Hydrobromide [Trintellix] 20 mg PO DAILY 04/20/17 warfarin 10 mg tablet 8 mg PO DAILY 05/16/17 Olmesartan/Hydrochlorothiazide [Benicar Hct 40-12.5 MG Tab] 1 tab PO DAILY 02/11/18 Solifenacin Succinate [Vesicare] 5 mg PO DAILY 02/11/18 traZODone [Desyrel] 50 mg PO QHS 02/11/18 Acetaminophen [Tylenol Extra Strength] 500 mg PO Q4H PRN PRN #20 tablet 02/13/18 Ibuprofen 600 mg PO Q6H PRN PRN #20 tablet 02/13/18 Atorvastatin Calcium [Lipitor] 40 mg PO QHS 03/06/18 Acetaminophen [Tylenol Extra Strength] 500 mg PO Q4H PRN PRN 5 Days #20 tablet 03/22/18 Ibuprofen 600 mg PO Q6H PRN PRN #20 tablet 03/22/18 The following prescriptions were given: Acetaminophen [Tylenol Extra Strength] 500 mg PO Q4H PRN PRN 5 Days #20 tablet PRN Reason: Pain Ibuprofen 600 mg PO Q6H PRN PRN #20 tablet PRN Reason: Pain Primary Care Physician: Ruddy Corral Chi, MD [Primary Care Provider] - Test Results: Test results from this visit will be discussed in further detail at your follow- up appointment, if applicable. Please Follow Up With: True Weathers MD When: in 2 weeks, please call to make an appointment.
--- NOTE | 2018-03-22 15:33 | PCM.OPRPT ---
Report of Operation Date of Procedure: 03/22/18 Pre-Operative Diagnosis: Left kidney stone Post-Operative Diagnosis: Same Surgery/Procedure Performed:: Left extracorporeal shockwave lithotripsy Description of Surgical Findings:: 62-year-old female who has a stone about 8 mm in size in the lower pole the left kidney today she presents to the hospital for shockwave lithotripsy to treat and break the stone. She understands that we will not place a stent and hopefully the stone will break up successfully enough that she can passing fragments. 62-year-old female taken back to the operating room at the smooth induction of general anesthesia she was placed supine on the table we then localize the stone in the F2 focal point of the lithotripter machine and then we started commencing treatment with the shockwave machine at a rate of 90 went from kilovolts of 5-7 and we delivered a total of 3000 shockwaves to the stone which broke up successfully into the small little pieces at the end of the treatment cycle under fluoroscopy we could not see any more significant stones in the left kidney patient's anesthetic was reversed she is taken back to the PACU in good condition and she will follow-up in a few weeks with a KUB Type of Anesthesia:: General Drains: none - Admit VTE Documentation VTE Present on Admission: No VTE Mechan Device Prophylaxis: SCD's
[2018-03-22 15:34] VITALS: BP 131/62; BP 149/73; PULSE 67; RESP 16; TEMP 36.8; O2SAT 92
[2018-03-22 15:45] VITALS: BP 131/62; BP 150/74; PULSE 60; RESP 16; O2SAT 98
[2018-03-22 16:00] VITALS: BP 131/62; BP 163/75; PULSE 56; RESP 16; TEMP 37; O2SAT 97
[2018-03-22 16:15] LABS: Bedside Glucose 107 mg/dL (70-110)
[2018-03-22 16:29] VITALS: BP 128/78; BP 131/62; PULSE 78; RESP 18; TEMP 37.1; O2SAT 99
[2018-03-22 16:49] VITALS: BP 131/62; BP 152/54; PULSE 61; RESP 17; TEMP 36.2; O2SAT 99
--- NOTE | 2018-04-02 07:33 | PCM.HP.STD ---
History of Present Illness Date of Admission: 03/22/18 Chief Complaint: Left kidney stone The patient is a 62 year old female who presents to the hospital today for elective left extracorporeal shockwave let us lithotripsy this is a makeup H&P for surgery. Past Medical History Past Medical History (Chronic Problems): Chronic Problems (Last Reviewed 04/02/18 @ 07:33 by True Weathers MD) Hyperlipidemia (Chronic) Atrial fibrillation (Chronic) Benign essential hypertension (Chronic) Morbid obesity (Chronic) Status post radiofrequency ablation operation for arrhythmia (Chronic) May 2010 EPS with RFA, PVI for symptomatic atrial fib per Dr. Vanessa [facility] Obstructive sleep apnea (Chronic) Hx of pulmonary embolus (Chronic) Medical History: Medical History (Last Reviewed 04/02/18 @ 07:33 by True Weathers MD) Hyperlipidemia (Chronic) E78.5 Atrial fibrillation (Chronic) I48.91 Benign essential hypertension (Chronic) I10 Morbid obesity (Chronic) E66.01 Obstructive sleep apnea (Chronic) G47.33 Hx of pulmonary embolus (Chronic) Z86.711 Allergies flecainide [Flecainide] Allergy (Verified 03/06/18 10:36) Rash Home Medications: Ambulatory Orders Medication Instructions Recorded Albuterol Inhaler [Ventolin Hfa] 2 puff INHALATION Q4H PRN PRN 04/20/17 Budesonide/Formoterol 160/4.5 2 puff INHALATION BID 04/20/17 [Symbicort 160/4.5 Mcg Inhaler (SP)] Calcium Carbonate [Calcium] 2 tab PO DAILY 04/20/17 Celecoxib [Celebrex] 200 mg PO DAILY 04/20/17 Metformin HCl [Glucophage] 1,000 mg PO BIDCM 04/20/17 Pramipexole Di-HCl [Mirapex] 0.5 mg PO BID 04/20/17 Vit A/Vit C/Vit E/Zinc/Copper 1 ea PO DAILY 04/20/17 [Preservision Areds Softgel] Vortioxetine Hydrobromide 20 mg PO DAILY 04/20/17 [Trintellix] warfarin 10 mg tablet 8 mg PO DAILY 05/16/17 Olmesartan/Hydrochlorothiazide 1 tab PO DAILY 02/11/18 [Benicar Hct 40-12.5 MG Tab] Solifenacin Succinate [Vesicare] 5 mg PO DAILY 02/11/18 traZODone [Desyrel] 50 mg PO QHS 02/11/18 Acetaminophen [Tylenol Extra 500 mg PO Q4H PRN PRN #20 tablet 02/13/18 Strength] Ibuprofen 600 mg PO Q6H PRN PRN #20 tablet 02/13/18 Atorvastatin Calcium [Lipitor] 40 mg PO QHS 03/06/18 Ibuprofen 600 mg PO Q6H PRN PRN #20 tablet 03/22/18 Surgical History: Surgical History (Last Reviewed 04/02/18 @ 07:33 by True Weathers MD) Status post radiofrequency ablation operation for arrhythmia (Chronic) Z98.890, Z86.May EPS with RFA, PVI for symptomatic atrial fib per Dr. Vanessa 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/31/2015 History of tonsillectomy Z90.89 History of tubal ligation Z98.51 History of tonsillectomy Z98.890, Z90.89 S/P left rotator cuff repair Z98.890 03/28/16 S/P rotator cuff repair Z98.890 05/11/15 Status post total left knee replacement Z96.652 left 01/20/14 Surgical History: rotator cuff repair, - Smoking Status: Never smoker - *Family History Paternal Family History: Family History (Last Reviewed 04/02/18 @ 07:33 by True Weathers MD) Father CAD (coronary artery disease) Myocardial infarction Other Diabetes History Items: Diabetes, Heart Disease Maternal Family History: Family History (Last Reviewed 04/02/18 @ 07:33 by True Weathers MD) Father CAD (coronary artery disease) Myocardial infarction Other Diabetes History Items: No pertinent history Review of Systems Constitutional: Denies: Chills, Fever, Weight Change HEENT: Denies: Head Aches, Sinus Congestion, Sinus Drainage Cardiovascular: Denies: Chest Pain, Palpitations Respiratory: Denies: Cough, Shortness of breath at rest, Sputum production Gastrointestinal: Denies: Abdominal Pain, Nausea, Vomiting Genitourinary: Denies: Dysuria Musculoskeletal: Denies: Joint Pain, Joint Tenderness Skin: Denies: Rash, Wounds Neurological: Denies: Numbness, Tingling, Focal weakness Psychiatric: Denies: Anxiety, Depression, Homicidal Ideations, Suicidal Ideations Hematologic/ Lymphatic: Denies: Easy Bruising, Easy Bleeding VTE Information - Inpt Only VTE Present on Admission: No - Physical Exam General: Alert, Oriented x3, Cooperative HEENT: Atraumatic, PERRLA, EOMI, Normocephalic Neck: Supple, No JVD, Negative Carotid Bruits Lungs: Clear to auscultation, Normal air movement Cardiovascular: Regular rate, No murmurs Abdomen: Bowel Sounds Present, Soft, Non Tender Extremities: No edema, Capillary Refill Less than 3 Seconds Skin: No rashes, No breakdown Musculoskeletal: No Tenderness to Palpation of Joints or Extremities Neurological: Cranial nerves II-XII grossly intact Psych/Mental Status: Normal Affect, Appropriate Vital Signs Temp Pulse Resp BP Pulse Ox 97.1 F L 61 17 152/54 H 99 03/22/18 16:49 03/22/18 16:49 03/22/18 16:49 03/22/18 16:49 03/22/18 16:49 Oxygen Delivery Method Room Air Weight: 108.5 kg Body Mass Index (BMI) 39.8 Finger Stick Blood Glucose 107 Assessment/Plan 62-year-old female with left kidney stone plan to proceed with left extracorporeal shockwave lithotripsy. This is a makeup H&P for surgery.
== END 2018-03-22 16:50 | disposition home or self-care (01) ==
LOC: SDC 12:25 → AC 12:29
PROVIDERS: Family Provider Family Medicine Geriatric Medicine; PCP Family Medicine Geriatric Medicine; Referring Provider Urology; Visit Provider Urology
PROC: (CPT 50590; principal; 2018-03-22 15:40)
DX: N20.0 Calculus of kidney (principal); G25.81 Restless legs syndrome; I48.91 Unspecified atrial fibrillation; I10 Essential (primary) hypertension; J44.9 Chronic obstructive pulmonary disease, unspecified; I35.0 Nonrheumatic aortic (valve) stenosis; E78.5 Hyperlipidemia, unspecified; G47.33 Obstructive sleep apnea (adult) (pediatric); E66.01 Morbid (severe) obesity due to excess calories; Z86.718 Personal history of other venous thrombosis and embolism; Z86.711 Personal history of pulmonary embolism; Z68.39 Body mass index [BMI] 39.0-39.9, adult
CPT/HCPCS: 00873; 50590; 36416; 74018; 82962; 85610; J7120; J2405

== ENCOUNTER → 2018-03-26 13:45 | Outpatient (CLI) | payer MEDICARE, OTHER, SELFPAY ==
[2018-03-22 13:00] VITALS: BMI 39.8
[2018-03-26 14:37] LABS: Absolute Lymphocyte Count 1.63 X10^3/ul (0.83-4.51); Absolute Neutrophil Count 3.5 X10^3/uL (2.0-7.7); Basophil# 0.02 X10^3/uL; Basophil% 0.4 % (0-1); Eosinophil# 0.15 X10^3/uL; Eosinophils% 2.6 % (0-5); Hematocrit 40.1 % (37-47); Lymphocyte # 1.63 X10^3/ul (4.0); Lymphocyte % 28.6 % (19-41); Mean Corp Hgb Conc 32.4 g/gl (32-36); Mean Corpuscular Hgb 31.9 pg (27.0-32.0); Mean Corpuscular Volume 98.5 fL (81-99); Mean Platelet Vol. 10.3 fl (6.2-12.0); Monocyte# 0.41 X10^3/uL; Monocyte% 7.2 % (0-10); Neutrophil # 3.47 X10^3/uL (2.7-7.7); Platelet Count 169 K/mm3 (150-450); RBC Distribution Width CV 13.9 % (11.6-14.6); RBC Distribution Width SD 49.7 fl (35.1-43.9); Red Blood Count 4.07 M/mm3 (4.2-5.4); White Blood Count 5.7 K/mm3 (4.4-11.0)
[2018-03-26 14:38] LABS: POSITIVE COUNT NO; POSITIVE DIFFERENTIAL NO; POSITIVE MORPHOLOGY NO
[2018-03-26 14:57] LABS: Vitamin D,25 Hydroxy 33.4 ng/mL (29.95-100.01)
[2018-03-26 14:59] LABS: AST(SGOT) 20 U/L (15-37); Alanine Aminotransfer ALT/SGPT 28 U/L (13-56); Albumin, Serum 3.7 g/dL (3.2-5.0); Alkaline Phosphatase 123 U/L (45-117); Anion Gap 8 (5-15); BUN 14 mg/dL (7-18); BUN/Creat Ratio 17.2 RATIO (10-20); Calcium,Total 8.8 mg/dL (8.5-10.1); Chloride 103 mmol/L (98-107); Creatinine, Serum 0.81 mg/dL (0.55-1.02); EST Glomerular Filtration Rate 75 mL/min (>60); Est Glom Filt Rate - Afr Amer 91 mL/min (>60); Globulin 3.6 g/dL (2.2-4.2); Glucose 133 mg/dL (74-106); Potassium 3.9 mmol/L (3.5-5.1); Protein, Total 7.3 g/dL (6.4-8.2); Sodium Level 140 mmol/L (136-145); Thyroid Stim Hormone (TSH) 0.98 uIU/mL (0.358-3.74)
== END ==
PROVIDERS: Family Provider Family Medicine Geriatric Medicine; PCP Family Medicine Geriatric Medicine; Visit Provider Family Medicine Geriatric Medicine
DX: E11.9 Type 2 diabetes mellitus without complications (principal); I10 Essential (primary) hypertension; E55.9 Vitamin D deficiency, unspecified
CPT/HCPCS: 36415; 80053; 82306; 84443; 85025

== ENCOUNTER → 2018-04-09 09:49 | Outpatient (CLI) | payer MEDICARE, OTHER, SELFPAY ==
[2018-03-22 13:00] VITALS: BMI 39.8
--- NOTE | 2018-04-09 09:53 | RAD_ITS ---
STUDY: X-RAY - ABDOMEN/PELVIS REASON FOR EXAM: Female, 62 years old. Follow-up kidney stones. TECHNIQUE: Two AP supine views of the abdomen and pelvis. COMPARISON: March 22, 2018. FINDINGS: Normal visualized lung bases. Air and feces is seen throughout the colon. There is no demonstrated free abdominal air. The visualized liver, spleen and kidneys are grossly normal in size and morphology. The right renal calcifications are poorly visualized due to overlying colon. There is visualization of a 4 mm nodule projecting calculus lower pole which was previously noted. The calcification in the lower pole of the left kidney is not clearly visualized again secondary to overlying colon. Normal soft tissue structures. There are diffuse degenerative changes of the visualized lumbar spine. RAD/Abdomen Single View IMPRESSION: Large amount of feces throughout the colon. This obscures visualization of the kidneys. A small calcification lower pole of the right kidney is again noted. Electronically Signed: Adria Louis DO at 23:39 EST Tel [phone], Service support ,
== END ==
PROVIDERS: Family Provider Family Medicine Geriatric Medicine; PCP Family Medicine Geriatric Medicine; Referring Provider Nurse Practitioner Adult Health; Visit Provider Nurse Practitioner Adult Health
DX: N20.0 Calculus of kidney (principal)
CPT/HCPCS: 74018

== ENCOUNTER → 2018-04-16 10:22 | Outpatient (CLI) | payer MEDICARE, OTHER, SELFPAY ==
[2018-03-22 13:00] VITALS: BMI 39.8
[2018-04-16 11:30] LABS: Amphetamine Urine VISTA NEGATIVE (<1000 ng/mL); Barbiturate Urine VISTA NEGATIVE (< 200 ng/mL); Benzodiazepine Urine VISTA NEGATIVE (< 200 ng/mL); Cocaine Urine VISTA NEGATIVE (< 300 ng/mL); Ecstacy Urine VISTA NEGATIVE (< 500 ng/mL); Methadone Urine VISTA NEGATIVE (< 300 ng/mL); PCP Urine VISTA NEGATIVE (< 25 ng/mL); THC Urine VISTA NEGATIVE (< 50 ng/mL); Vista UDS pH Range 5
== END ==
PROVIDERS: Family Provider Family Medicine Geriatric Medicine; PCP Family Medicine Geriatric Medicine; Referring Provider Anesthesiology Pain Medicine; Visit Provider Anesthesiology Pain Medicine
DX: F11.20 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, 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 (principal)
CPT/HCPCS: 80307

== ENCOUNTER 2018-06-26 21:50 | Emergency (ER) | payer MEDICARE, OTHER, SELFPAY ==
[2018-06-26 21:51] VITALS: BP 159/57; PULSE 73; RESP 19; TEMP 36.9; O2SAT 97; BMI 41.5
--- NOTE | 2018-06-26 22:02 | RAD_ITS ---
STUDY: X-RAY CHEST REASON FOR EXAM: Female, 62 years old. Chest pain TECHNIQUE: Single frontal view COMPARISON: July 19, 2016 FINDINGS: The lungs are clear and expanded. There is no demonstrated pleural abnormality. Normal size heart. Normal mediastinum and chan. Normal visualized pulmonary arteries. Normal visualized aortic arch and descending thoracic aorta. Mild degenerative changes of the thoracic spine. Right shoulder prosthesis is again noted. There is no demonstrated abnormality of the visualized soft tissue structures of the upper abdomen. RAD/Chest 1 View (Portable) IMPRESSION: Normal x-ray examination of the chest. Electronically Signed: Shaq Oakley DO at 22:55 EDT Tel [phone], Service support ,
--- NOTE | 2018-06-26 22:02 | EKG12_ITS ---
Test Reason : CP Blood Pressure : / mmHG Vent. Rate : 071 BPM Atrial Rate : 071 BPM P-R Int : 174 ms QRS Dur : 092 ms QT Int : 400 ms P-R-T Axes : 052 034 023 degrees QTc Int : 434 ms Normal sinus rhythm Normal ECG Confirmed by ELIZABETH LOPEZ ([id number]), editor at large UGO HENLEY ([id number]) on 07/01/2018 2:06:37 PM Referred By: MARGE Confirmed By:ROMANA LOPEZ
[2018-06-26 22:08] VITALS: O2SAT 95
[2018-06-26 22:22] LABS: Absolute Lymphocyte Count 1.68 X10^3/ul (0.83-4.51); Absolute Neutrophil Count 4.3 X10^3/uL (2.0-7.7); Basophil# 0.02 X10^3/uL; Basophil% 0.3 % (0-1); Eosinophil# 0.07 X10^3/uL; Eosinophils% 1.1 % (0-5); Hematocrit 36.1 % (37-47); Hemoglobin 12.4 g/dl (12.0-15.0); Lymphocyte # 1.68 X10^3/ul (4.0); Lymphocyte % 25.8 % (19-41); Mean Corp Hgb Conc 34.3 g/gl (32-36); Mean Corpuscular Hgb 31.9 pg (27.0-32.0); Mean Corpuscular Volume 92.8 fL (81-99); Mean Platelet Vol. 9.4 fl (6.2-12.0); Monocyte# 0.43 X10^3/uL; Monocyte% 6.6 % (0-10); Neutrophil # 4.31 X10^3/uL (2.7-7.7); POSITIVE COUNT NO; POSITIVE DIFFERENTIAL NO; POSITIVE MORPHOLOGY NO; Platelet Count 156 K/mm3 (150-450); RBC Distribution Width CV 13.9 % (11.6-14.6); RBC Distribution Width SD 46.7 fl (35.1-43.9); Red Blood Count 3.89 M/mm3 (4.2-5.4); White Blood Count 6.5 K/mm3 (4.4-11.0)
[2018-06-26 22:26] LABS: International Normalized Ratio 2.2; Prothrombin Time (Protime)PT. 24.1 SECONDS (11.7-14.9)
[2018-06-26 22:32] VITALS: BP 140/67; PULSE 70; RESP 14; O2SAT 95
[2018-06-26 22:38] LABS: Anion Gap 7 (5-15); BUN 13 mg/dL (7-18); BUN/Creat Ratio 16.9 RATIO (10-20); Calcium,Total 8.4 mg/dL (8.5-10.1); Chloride 109 mmol/L (98-107); Creatinine, Serum 0.77 mg/dL (0.55-1.02); EST Glomerular Filtration Rate 80 mL/min (>60); Est Glom Filt Rate - Afr Amer 97 mL/min (>60); Estimated Creatinine Clearance 66.42 ml/min; Glucose 115 mg/dL (74-106); Potassium 3.4 mmol/L (3.5-5.1); Sodium Level 143 mmol/L (136-145)
--- NOTE | 2018-06-26 23:30 | ED.DCSUM_ITS ---
- ER Visit Summary Date of Service: 06/26/18 Chief Complaint: Chest pain History of Present Illness: The patient is a 62 F who presents with chief complaint of chest pain. Patient states around 5 PM she developed chest heaviness. She denies shortness of breath or diaphoresis. Symptoms lasted approximately 3 hours and then resolved. Patient thinks it was stress related from an interaction with her [id number]-kg-ocf earlier in the day. Past history is significant for CHF, hypertension, A. fib, PE, sleep apnea, prior cardiac ablation. She is on Coumadin. Patient is unsure of her last stress test or heart cath. Physical Examination: Vital signs unremarkable. Patient sitting upright in bed no acute distress. Head and neck examination unremarkable. Heart is regular rate and rhythm. Lung sounds are clear. Abdomen is soft and nontender. Lower external examination was no calf tenderness or edema. Test Results: EKG is sinus at 71 with no sign of acute ischemia. Portable chest x-ray unremarkable. CBC is normal. Chemistry studies significant only for potassium 3.4. INR is therapeutic at 2.2. Troponin is less than 0.015. Emergency Department Course and Treatment: At the time of my examination patient denied chest pain. Labs were obtained via nursing protocol and were discussed with her at the time of my initial exam. Labs were drawn less than 6 hours after onset of symptoms. I suggested delta troponin and EKG to rule out cardiac etiology. Patient declines this stating that she really believes it is stress related and return if her symptoms worsen. Treatment Plan: [] Disposition: Discharge Impression: Chest pain, resolved This note was generated with Advise Only dictation software. It may contain incorrect words, spelling, and punctuation that were not noted in review of the chart prior to signing ED Disposition - Plan for ED Patient: Disposition: Home or Assisted Living Instructions: ED Chest Pain Atypical Unkn Cause Referrals: Ruddy Corral Chi, MD [Primary Care Provider] - 1 Week
[2018-06-26 23:44] VITALS: BP 145/63; PULSE 70; RESP 13; O2SAT 95
== END 2018-06-26 23:44 | disposition home or self-care (01) ==
PROVIDERS: Emergency Provider Emergency Medicine; Family Provider Family Medicine Geriatric Medicine; PCP Family Medicine Geriatric Medicine
DX: R07.9 Chest pain, unspecified (principal); I10 Essential (primary) hypertension; I48.91 Unspecified atrial fibrillation; G47.33 Obstructive sleep apnea (adult) (pediatric); Z79.01 Long term (current) use of anticoagulants; Z86.711 Personal history of pulmonary embolism
CPT/HCPCS: 71045; 80048; 84484; 85025; 85610; 93005; 99285; J7030

== ENCOUNTER → 2018-07-23 09:17 | Outpatient (CLI) | payer MEDICARE, OTHER, SELFPAY ==
[2018-07-23 09:12] VITALS: BMI 41.5
--- NOTE | 2018-07-23 09:21 | RAD_ITS ---
STUDY: X-RAY - LEFT HAND, ATTENTION FIRST FINGER REASON FOR EXAM: Female, 62 years old. Pain at base of thumb. Repetitive motion from knitting. TECHNIQUE: 3 view(s) of the finger were obtained. COMPARISON: None. FINDINGS: There is moderate arthrosis of the first carpometacarpal joint. There is mild arthrosis of the MCP and IP joints. The soft tissues are unremarkable. RAD/Finger(s) Min 2 Views IMPRESSION: Osteoarthritic changes, most marked at the first CMC joint. Electronically Signed: Fox Ordaz MD at 10:49 EDT , Service support ,
== END ==
PROVIDERS: Family Provider Family Medicine Geriatric Medicine; PCP Family Medicine Geriatric Medicine; Referring Provider Orthopaedic Surgery; Visit Provider Orthopaedic Surgery
DX: M79.645 Pain in left finger(s) (principal)
CPT/HCPCS: 73140

== ENCOUNTER → 2018-07-29 | Outpatient (CLI) | payer MEDICARE, OTHER, SELFPAY ==
[2018-07-23 09:12] VITALS: BMI 41.5
--- NOTE | 2018-07-29 07:09 | US_ITS ---
STUDY: SUPERFICIAL ULTRASOUND - LEFT HAND/THUMB REASON FOR EXAM: Female, 62 years old. Pain TECHNIQUE: A superficial ultrasound was performed with real-time and static rosales-scale imaging. COMPARISON: None. FINDINGS: Multiple ultrasound images of the hand and base of thumb regions were obtained at area of clinical interest and pain. No masses, cysts or fluid collections are identified in the region of interest. US/Ext Non Vasc Limited/Soft Tiss IMPRESSION: No masses, cysts or fluid collections are identified by ultrasound in the region of interest. Electronically Signed: Juan Leonardo MD at 8:42 EDT Tel , Service support ,
== END | disposition home or self-care (01) ==
LOC: US 07:08
PROVIDERS: Family Provider Family Medicine Geriatric Medicine; PCP Family Medicine Geriatric Medicine; Referring Provider Orthopaedic Surgery; Visit Provider Orthopaedic Surgery
DX: M67.40 Ganglion, unspecified site (principal)
CPT/HCPCS: 76882

== ENCOUNTER → 2018-08-19 06:24 | Outpatient (CLI) | payer MEDICARE, OTHER, SELFPAY ==
[2018-08-01 12:25] VITALS: BMI 41.5
--- NOTE | 2018-08-19 06:26 | MRI_ITS ---
STUDY: MRI LEFT HAND (ATTENTION THUMB) REASON FOR EXAM: Pain at first metacarpal, no specific injury, question lump. TECHNIQUE: Standardized fat and water weighted pulse sequences were obtained in all 3 orthogonal planes. COMPARISON: Radiographs 07/15/2018 and ultrasound images 07/29/2018. FINDINGS: There is no bone edema of the first metacarpal or first proximal and distal phalanges. Normal flexor pollicis longus and extensor pollicis longus tendons. There is arthrosis of the first carpometacarpal joint with chondral thinning (T2 sagittal image 13), mild bone edema of the trapezium and mild subchondral cystic change. There is mild arthrosis of the first metacarpophalangeal joint with mild chondral thinning (T2 sagittal image 13) and small subchondral cyst of the first metacarpal head. Normal radial and ulnar collateral ligaments of the first metacarpophalangeal joint. Normal interphalangeal joint of the first digit. Normal thenar musculature. There are no demonstrated solid, cystic or lipomatous masses. MRI/Upper Ext/No Jt/ wo IMPRESSION: Arthrosis of the first carpometacarpal joint. Mild arthrosis of the first metacarpophalangeal joint. No demonstrated soft tissue mass. Electronically Signed: Rafael Cameron MD at 8:21 EDT Tel , Service support ,
== END ==
PROVIDERS: Family Provider Family Medicine Geriatric Medicine; PCP Family Medicine Geriatric Medicine; Referring Provider Orthopaedic Surgery; Visit Provider Orthopaedic Surgery
DX: R22.32 Localized swelling, mass and lump, left upper limb (principal)
CPT/HCPCS: 73218

== ENCOUNTER 2018-08-20 10:30 | Outpatient (RCR) | payer MEDICARE, OTHER, SELFPAY ==
--- NOTE | 2018-07-17 10:47 | HP.PTEVAL ---
Patient's Visit Information IVON WISEMAN is a 62 year old F referred to Physical Therapy by Montserrat Elias MD with a diagnosis of LBP/neck pain. Date of Evaluation: 07/17/18 Physical Therapist: Ubaldo Mujica, ISABELLA, OCS, CSCS - Visit Plan Frequency: 2x /Week Duration: 4-6 Weeks Plan: 2x/week for 4 weeks in the pool for aquatic therapy focussing on stretching hip flexores, LB ROM and NS strengthening of core and increase activty level. Progress to I in pool of her choice or 2-4 more weeks of land therapy as exit strategy. - Subjective Findings: Neck not bad. LBP for years and has DDD adn fibromyalgia. Insidious worsening. 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 Walking too much can bother her and she uses cane due to fear of falling. Used it for years. R foot can feel tingly if she stands too long trasniently but has DM also. Comfortable mostly sitting. Sitting too long makes her painful and needs to get back. Sleeps OK. Disability SSI form FM and pain since 2007. Activities include walking dog 4x/day 15 minutes in yard and sometimes worse. Pain pills help. Does dishes and housework and needs to limit time doing these. Carrying clothes from dryer hurts. Dressing and cooking not a problem. Hobbies include angelika and embroidery and not a problem with LB. - Pain LBP Pain Intensity (Out of 10): 3 Pain Intensity Range: 0, 8 Comment: walking at [place] was 8/10 - Objective R foot collapsed into pronation, pt will have foot doctor check this out as it effects frontal plane with R side lower. Knees degenerated adn slightly valgus. LB AROM extension max limited and painful, flexion mod limited adn without pain, B SB mod limtied and painful. reflexes patella and achilles 2/3 bi tri 2/3. LE AROM WFL except R ankle inversion to neutral only. UE aROM elevation to 100 only activelya dn stiff. Neck aROM 50 ext adn 55 rotation without pain today. LE strength 4-/5 except R ankle inversion 3-. Also hip ext adn abduction 3+. UE strength 3+/5 without myotomal abnormalities. Hard for patient to find neutral spine needing multiple VC and very little pelvic movement and weak in abdominals. Lying flat on back hurts LB and better with knees bent. Sensation UE and LE WNL to gross light touch. Tender to palpation through LB paraspinals and into thoracic spine and into neck musculature. Walks safely and I with cane R UE, and fair balance without cane but shorter steps. - Goals Goal 1:: Pt feel pain 0-2/10 at most in LB and manageable Goal Time Frame: 4-6 Weeks Goal 2:: Pt feel pain 75% improved in LB and tolerate walkign dog without increased pain regualrly. Goal Time Frame: 4-6 Weeks Goal 3:: I appropr HEP to manage LBP Goal Time Frame: 4-6 Weeks - Rehabilitation Potential Physical Therapy Diagnosis: LBP degenerative in nature. Rehabilitation Potential: Fair - Anticipated Interventions Patient/Client Instruction: Educate patient on: Condition, Plan of Care For the Purpose of:: To decrease pain, To improve muscle performance and motor function, To improve performance and independence with ADL's Therapeutic Exercise to Include: Strength training, Flexibilty training, In an aquatic setting, Passive ROM, Active ROM, Dynamic Lumbar Stabilization For the Purpose of:: To decrease pain, To improve nutrient delivery to tissue, To improve muscle performance and motor function, To improve performance and independence with ADL's, To improve ability of physical actions for home/community/work/leisure Thank you for the opportunity to evaluate your patient. For Medicare and Medicare HMO plans, please review the plan of care and approve it. It will need to be FAXED BACK to us at [phone] for Medicare purposes. For Medicare only, by signing this I certify the plan of care. Please let me know if there are questions or concerns regarding this plan of care. Physician Signature: Date:
--- NOTE | 2018-08-20 10:47 | HP.PTDCSUM ---
HP - PT D/C Summary It has been my pleasure to treat IVON WISEMAN under orders from Montserrat Welsh MD, for the diagnosis of LBP/neck pain for a total of 4 visit(s). Discharge Date: 08/20/18 Please see the following information for a summary of their discharge status. - Subjective Subjective: Walks a lot at camp. Will get golf cart this week. Been doing OK. Pool helped while she was in it. Been busy camping and not feeling good overall. Sharp pain in L LB and may be kidney infection, will have that checked out. Feels better 10%, able to stand more at home to do stuff. Will see Jada on 09/02. Will be out of town at [place] for the next 2 weeks. Doing HEP 1x/day. They tire her out. Using cane to ambulate. Will see foot doctor for R arch on the also. - Pain LBP Pain Intensity (Out of 10): 8 - Overall Improvement % Improvement: 10 - Objective Objective/Function: Strength LE 4-/5. ROM L/S mod to max deficits LB with L LB Pain. SB and min limties, flexion is min limits and no pain. Walks with cane I. R foot has collapsed adn will appropriately see foot doctor in August as this may be throwing off her frontal plane and contributing to LBP. OVERALL, VERY FEW CHANGES PATIENT WAS NOT CONSISTENT WITH THERAPY ONLY HAVING 2 IN WATER VISITS. SHE IS OUT OF TOWN FOR A COUPLE WEEKS AND THEN WISHES TO SEE DR. WELSH INSTEAD OF TRYING MORE THERAPY. - Goals Goal 1:: Pt feel pain 0-2/10 at most in LB and manageable Goal Progress: Not Progressing Goal 2:: Pt feel pain 75% improved in LB and tolerate walkign dog without increased pain regualrly. Goal Progress: Progressing Goal 3:: I appropr HEP to manage LBP Goal Progress: PT, HERNANDEZ Mcfarlane - Plan Plan: d/c AT PT REQUEST. - D/C Information Discharge Comments: Pt not doing much better but really did not give the therapy much of a chance. She wishes to f/u with doctor in two weeks as she will be out of town for the next couple weeks rather than schedule more therapy. If there are questions or concerns regarding this patient's physical therapy, please feel free to call me at [phone]. Thank you for the referral of this patient. Sincerely, Ubaldo Mujica, DPT, OCS, CSCS
== END 2018-08-20 19:00 | disposition home or self-care (01) ==
LOC: PT 10:30
PROVIDERS: Family Provider Family Medicine Geriatric Medicine; PCP Family Medicine Geriatric Medicine; Referring Provider Anesthesiology Pain Medicine; Visit Provider Anesthesiology Pain Medicine
DX: M54.9 Dorsalgia, unspecified (principal); M54.2 Cervicalgia
CPT/HCPCS: 97113; 97162; 97530

== ENCOUNTER → 2018-09-23 11:06 | Outpatient (CLI) | payer MEDICARE, OTHER, SELFPAY ==
[2018-09-12 09:14] VITALS: BMI 41.5
[2018-09-23 11:52] LABS: Absolute Lymphocyte Count 1.93 X10^3/uL (0.83-4.51); Basophil# 0.04 X10^3/uL; Basophil% 0.5 % (0-1); Eosinophil# 0.08 X10^3/uL; Eosinophils% 1.1 % (0-5); Hematocrit 40.7 % (37-47); Hemoglobin 13.6 g/dL (12.0-15.0); Lymphocyte # 1.93 X10^3/ul (4.0); Lymphocyte % 25.5 % (19-41); Mean Corp Hgb Conc 33.4 g/dL (32-36); Mean Corpuscular Hgb 31.6 pg (27.0-32.0); Mean Corpuscular Volume 94.7 fL (81-99); Mean Platelet Vol. 9.9 fl (6.2-12.0); Monocyte# 0.54 X10^3/uL; Monocyte% 7.1 % (0-10); NRBC Flagged by Analyzer 0 % (0-5); Neutrophil # 4.96 X10^3/uL (2.7-7.7); Neutrophil % 65.7 % (47-70); Platelet Count 194 K/mm3 (150-450); RBC Distribution Width CV 13.3 % (11.6-14.6); RBC Distribution Width SD 45.9 fl (35.1-43.9); White Blood Count 7.6 K/mm3 (4.4-11.0)
[2018-09-23 12:14] LABS: AST(SGOT) 15 U/L (15-37); Alanine Aminotransfer ALT/SGPT 24 U/L (13-56); Albumin, Serum 3.5 g/dL (3.2-5.0); Alkaline Phosphatase 128 U/L (45-117); Anion Gap 5 (5-15); BUN 16 mg/dL (7-18); BUN/Creat Ratio 18.3 RATIO (10-20); Chloride 108 mmol/L (98-107); Creatinine, Serum 0.87 mg/dL (0.55-1.02); EST Glomerular Filtration Rate 69 mL/min (>60); Est Glom Filt Rate - Afr Amer 84 mL/min (>60); Globulin 3.5 g/dL (2.2-4.2); Glucose 132 mg/dL (74-106); Potassium 3.7 mmol/L (3.5-5.1); Sodium Level 140 mmol/L (136-145); Thyroid Stim Hormone (TSH) 0.78 uIU/mL (0.358-3.74)
== END ==
PROVIDERS: Family Provider Family Medicine Geriatric Medicine; PCP Family Medicine Geriatric Medicine; Visit Provider Family Medicine Geriatric Medicine
DX: E11.9 Type 2 diabetes mellitus without complications (principal); I10 Essential (primary) hypertension
CPT/HCPCS: 36415; 80053; 84443; 85025

== ENCOUNTER → 2018-10-21 08:14 | Outpatient (CLI) | payer MEDICARE, OTHER, SELFPAY ==
[2018-10-16 12:43] VITALS: BMI 38.1
== END ==
PROVIDERS: Family Provider Family Medicine Geriatric Medicine; PCP Family Medicine Geriatric Medicine; Referring Provider Internal Medicine Cardiovascular Disease; Visit Provider Internal Medicine Cardiovascular Disease
DX: I48.0 Paroxysmal atrial fibrillation (principal)
CPT/HCPCS: 93225; 93226

== ENCOUNTER → 2019-01-04 07:23 | Outpatient (CLI) | payer MEDICARE, OTHER, SELFPAY ==
[2018-10-16 12:43] VITALS: BMI 38.1
--- NOTE | 2019-01-04 07:26 | BI_ITS ---
MAMMOGRAPHY - BILATERAL SCREENING REASON FOR EXAM: Female, 63 years old. Routine annual screening examination. PERTINENT HISTORY: Non-contributory. TECHNIQUE: Digital bilateral breast valeri (3D mammographic acquisition) in the CC and MLO projections. 2-D mediolateral oblique (MLO) and craniocaudad (CC) views of both breasts were obtained. CAD: Full Field Digital Mammography with Computer Added Detection was performed. COMPARISON: Comparison is made with prior study dated December 29, 2017 and September 25, 2014. FINDINGS: Breast Composition: There are scattered areas of fibroglandular density. There are no dominant masses or suspicious calcifications. Stable small benign-appearing bilateral axillary lymph nodes. No other significant abnormalities are identified. There has been no significant change since the prior study. BI/SCREEN MAMM (CAD) W/VALERI BILAT IMPRESSION: Stable bilateral screening mammogram. Yearly follow-up mammogram recommended. (A) ASSESSMENT CATEGORY: BIRADS Category 2: Benign. A letter regarding these results will be sent to the patient by the facility within 30 days. Approximately 10% of breast cancers are not detected by mammography. A normal mammogram should not delay biopsy of a clinically suspicious abnormality. [id number] Electronically Signed: Tariq Kapoor, at 8:31 EST , Service support ,
== END ==
PROVIDERS: Family Provider Family Medicine Geriatric Medicine; PCP Family Medicine Geriatric Medicine; Referring Provider Family Medicine Geriatric Medicine; Visit Provider Family Medicine Geriatric Medicine
DX: Z12.31 Encounter for screening mammogram for malignant neoplasm of breast (principal); Z78.0 Asymptomatic menopausal state
CPT/HCPCS: 77063; 77067

== ENCOUNTER → 2019-02-20 16:33 | Outpatient (CLI) | payer MEDICARE, OTHER, SELFPAY ==
[2019-01-28 13:42] VITALS: BMI 38.1
--- NOTE | 2019-02-20 16:40 | RAD_ITS ---
STUDY: X-RAY - RIGHT KNEE REASON FOR EXAM: Female, 63 years old. RIGHT KNEE PAIN AFTER FALLING ON THE Jan TECHNIQUE: 3 view(s) of the knee. COMPARISON: May 25, 2016 FINDINGS: Normal visualized distal femur. Normal visualized proximal tibia and fibula. Normal proximal tibiofibular articulation. There is moderate degenerative arthrosis of the medial femorotibial compartment with moderate joint space narrowing. There is severe degenerative arthrosis of the lateral femorotibial compartment with severe joint space narrowing. There is moderate degenerative arthrosis of the patellofemoral articulation. There are atherosclerotic calcifications. RAD/Knee 3 Views IMPRESSION: Degenerative arthrosis. Atherosclerosis. Electronically Signed: Juliet Yee MD at 21:34 EST Tel , Service support ,
== END ==
PROVIDERS: Family Provider Family Medicine Geriatric Medicine; PCP Family Medicine Geriatric Medicine; Referring Provider Family Medicine Geriatric Medicine; Visit Provider Family Medicine Geriatric Medicine
DX: M25.569 Pain in unspecified knee (principal)
CPT/HCPCS: 73562

== ENCOUNTER 2019-03-01 09:27 | Inpatient (IN) | payer MEDICARE, OTHER, SELFPAY ==
[2019-02-27 10:07] VITALS: BMI 38.1
[2019-03-01] VITALS (11 sets, daily range): BP systolic 131–157; BP diastolic 63–89; PULSE 71–126; RESP 15–26; TEMP 37.1–39.3; O2SAT 93–99; BMI 40.8; BMI 39.6
--- NOTE | 2019-03-01 09:40 | EKG12_ITS ---
Test Reason : GEN ILLNESS Blood Pressure : / mmHG Vent. Rate : 120 BPM Atrial Rate : 104 BPM P-R Int : 000 ms QRS Dur : 088 ms QT Int : 318 ms P-R-T Axes : 000 055 082 degrees QTc Int : 449 ms Atrial fibrillation with rapid ventricular response with premature ventricular or aberrantly conducte d complexes Nonspecific ST and T wave abnormality Abnormal ECG Confirmed by DHARMESH KRUEGER, DEX ([id number]), makeup editor PALOMO SEAMAN ([id number]) on 03/03/2019 12:50:05 PM Referred By: BETO Confirmed By:DEX BARROSO MD
--- NOTE | 2019-03-01 09:40 | RAD_ITS ---
STUDY: X-RAY CHEST REASON FOR EXAM: Female, 63 years old. Cough, congestion x several days TECHNIQUE: Single AP portable view of the chest. COMPARISON: None. FINDINGS: There is mild right lower lung increased opacity. There is no demonstrated pleural abnormality. Normal size heart. Normal mediastinum and chan. Normal visualized pulmonary arteries. Normal visualized aortic arch and descending thoracic aorta. There is a levoscoliosis of the thoracic spine. There are degenerative changes of the spine. There is right shoulder replacement. There is no demonstrated abnormality of the visualized soft tissue structures of the upper abdomen. RAD/Chest 1 View (Portable) IMPRESSION: Right lower lung infiltrate. Electronically Signed: Imer Treadwell MD at 9:59 EST , Service support ,
[2019-03-01] MEDS: 0.9% Normal Saline 1,000 ML 150 ML IV ×3 (09:54→22:46)
[2019-03-01] MEDS: Acetaminophen 325 MG Tablet 650 MG PO ×2 (09:54→22:36)
[2019-03-01 09:56] LABS: Absolute Lymphocyte Count 1.17 X10^3/uL (0.83-4.51); Absolute Neutrophil Count 5.2 X10^3/uL (2.0-7.7); Basophil# 0.02 X10^3/uL; Basophil% 0.3 % (0-1); Eosinophil# 0.01 X10^3/uL; Eosinophils% 0.1 % (0-5); Hematocrit 41.6 % (37-47); Hemoglobin 13.7 g/dL (12.0-15.0); Lymphocyte # 1.17 X10^3/ul (4.0); Lymphocyte % 16.8 % (19-41); Mean Corp Hgb Conc 32.9 g/dL (32-36); Mean Corpuscular Hgb 31.9 pg (27.0-32.0); Mean Corpuscular Volume 96.7 fL (81-99); Mean Platelet Vol. 10.1 fl (6.2-12.0); Monocyte# 0.56 X10^3/uL; NRBC Flagged by Analyzer 0 % (0-5); Neutrophil # 5.18 X10^3/uL (2.7-7.7); Neutrophil % 74.4 % (47-70); Platelet Count 157 K/mm3 (150-450); RBC Distribution Width CV 13.6 % (11.6-14.6); RBC Distribution Width SD 48.6 fl (35.1-43.9)
[2019-03-01 10:02] LABS: International Normalized Ratio 1.9; Prothrombin Time (Protime)PT. 21.6 SECONDS (11.7-14.9)
[2019-03-01 10:03] LABS: Partial Thromboplast Time 34.2 Seconds (24.1-36.2)
[2019-03-01 10:13] LABS: ALB/GLOB Ratio 0.9 RATIO (0.9-2.4); AST(SGOT) 32 U/L (15-37); Alanine Aminotransfer ALT/SGPT 51 U/L (13-56); Albumin, Serum 3.6 g/dL (3.2-5.0); Alkaline Phosphatase 138 U/L (45-117); Anion Gap 5 (5-15); BUN 11 mg/dL (7-18); BUN/Creat Ratio 12.3 RATIO (10-20); Calcium,Total 8.6 mg/dL (8.5-10.1); Chloride 104 mmol/L (98-107); EST Glomerular Filtration Rate 67 mL/min (>60); Est Glom Filt Rate - Afr Amer 81 mL/min (>60); Estimated Creatinine Clearance 56.08 ml/min; Globulin 3.8 g/dL (2.2-4.2); Glucose 125 mg/dL (74-106); Potassium 3.9 mmol/L (3.5-5.1); Protein, Total 7.4 g/dL (6.4-8.2); Sodium Level 138 mmol/L (136-145)
--- NOTE | 2019-03-01 10:43 | ED.RN ---
call from lab. RSV positive. Dr. Arthur aware
[2019-03-01 10:52] LABS: Bacteria 0 SEEN /hpf (None Seen); Mucous, Urine 0 SEEN /hpf (<or=2+); White Blood Cells 0 SEEN /hpf (0-5)
[2019-03-01 10:58] LABS: Color, Urine Yellow (Yellow); Glucose, Dipstick Normal (Normal); Ketone-Dipstick Negative (Negative); Leukocyte Esterase-Dipstick 25 /ul (Negative); Nitrite-Dipstick Negative (Negative); Occult Blood-Urine 50 /ul (Negative); Protein-Dipstick Negative (Negative); Urine Bilirubin Dipstick Negative (Negative); Urine Clarity Clear (Clear); Urine Urobilinogen Normal (Normal)
[2019-03-01 10:59] LABS: Lactic Acid 2.5 mmol/L (0.4-1.9)
[2019-03-01 11:05] LABS: Red Blood Cells-Urine 0-5 SEEN /hpf (0-5)
[2019-03-01 11:06] LABS: Squamous Epithelial Cells - UA 0-5 SEEN /hpf (5-10)
[2019-03-01] MEDS: levoFLOXacin IV 750 MG/150 ML BAG 100 MG IV (11:33)
[2019-03-01] MEDS: 0.9% Normal Saline 1,000 ML 999 ML IV (11:34)
--- NOTE | 2019-03-01 11:37 | ED.DCSUM_ITS ---
- ER Visit Summary Date of Service: 03/01/19 Chief Complaint: Cough, shortness of breath History of Present Illness: The patient is a 63 F who is had cough and shortness of breath for 5 days. She admits to nasal congestion as well as a nonproductive cough. She does feel short of breath at times. She has had fevers at home. No dysuria. She is not a smoker. She does have a history of COPD. [id number] medications such as Mucinex are not working. Physical Examination: Vital signs reviewed. Temp is 102.4. Heart rate 120. Well-developed female in no distress. HEENT exam is unremarkable. Heart is tachycardic and regular with no murmurs. Lungs have mild inspiratory r honchorous breath sounds, worse on the right lower. Abdomen soft nontender. Extremities have no edema. Skin exam reveals no rashes. Her neurologic exam is normal. Test Results: Chest x-ray is a right lower lobe infiltrate. EKG was A. fib with a rate of 120. White count normal. Glucose 125. INR 1.9. Her lactate is 2.5. RSV is positive. Influenza negative. Emergency Department Course and Treatment: The patient was given IV fluids. Her blood pressure was normal. I did start her on Levaquin due to the infiltrate. It could be due to the viral RSV but I will still cover her for any bacterial causes. I discussed with hospitalist and we will admit the patient to the hospital. Treatment Plan: [] Disposition: Admit Impression: Severe sepsis, community-acquired pneumonia This note was generated with [employer] dictation software. It may contain incorrect words, spelling, and punctuation that were not noted in review of the chart prior to signing ED Disposition - Plan for ED Patient: Referrals: Ruddy Corral Chi, MD [Primary Care Provider] -
--- NOTE | 2019-03-01 11:41 | HP.PCM_ITS ---
Problem List (1) History of pulmonary embolism Status: Chronic (2) Deep vein thrombosis, lower left extremity Status: Chronic (3) Essential (primary) hypertension Status: Chronic (4) Paroxysmal atrial fibrillation Status: Chronic (5) Hyperlipidemia Status: Chronic (6) Severe sepsis Status: Acute (7) Pneumonia Status: Acute History of Present Illness Date of Admission: 03/01/19 Chief Complaint: Shortness of breath The patient is a 63 year old F multiple comorbidities including diabetes mellitus type 2, COPD who presented with shortness of breath. Patient symptoms started 4 days prior to her admission. Patient reports shortness of breath which is worsened with activity. Patient in addition did experience cough productive of yellowish sputum. She also did experience episodic fever and chills. In view of worsening symptoms patient presented to the emergency department. Imaging studies obtained demonstrated right lower lung infiltrate consistent with pneumonia patient lactic acid level was also elevated. An assessment of severe sepsis secondary to community-acquired pneumonia made patient admitted to nursing floor for further management. Past Medical History Past Medical History (Chronic Problems): Chronic Problems (Last Reviewed 10/16/18 @ 15:24 by Tulio Licea MD) History of pulmonary embolism (Chronic) Deep vein thrombosis, lower left extremity (Chronic) Essential (primary) hypertension (Chronic) Paroxysmal atrial fibrillation (Chronic) Hyperlipidemia (Chronic) Medical History: Medical History (Last Reviewed 03/01/19 @ 12:38 by Stanley Cooper MD) History of pulmonary embolism (Chronic) Z86.711 Deep vein thrombosis, lower left extremity (Chronic) I82.402 Essential (primary) hypertension (Chronic) I10 Paroxysmal atrial fibrillation (Chronic) I48.0 Hyperlipidemia (Chronic) E78.5 Kidney stones N20.0 Morbid obesity E66.01 Obstructive sleep apnea G47.33 Type 2 diabetes mellitus E11.9 TIA (transient ischemic attack) G45.9 Allergies flecainide [Flecainide] Allergy (Verified 03/01/19 09:28) Rash Home Medications: Ambulatory Orders Medication Instructions Recorded Albuterol Inhaler [Ventolin Hfa] 2 puff INHALATION Q4H PRN PRN 04/20/17 Budesonide/Formoterol 160/4.5 2 puff INHALATION BID 04/20/17 [Symbicort 160/4.5 Mcg Inhaler (SP)] Calcium Carbonate [Calcium] 2 tab PO DAILY 04/20/17 Celecoxib [Celebrex] 200 mg PO DAILY 04/20/17 Pramipexole Di-HCl [Mirapex] 0.5 mg PO BID 04/20/17 Vit A/Vit C/Vit E/Zinc/Copper 1 ea PO DAILY 04/20/17 [Preservision Areds Softgel] Vortioxetine Hydrobromide 20 mg PO DAILY 04/20/17 [Trintellix] warfarin 10 mg tablet 9 mg PO MOWETHSA 05/16/17 Olmesartan/Hydrochlorothiazide 1 tab PO DAILY 02/11/18 [Benicar Hct 40-12.5 MG Tab] Solifenacin Succinate [Vesicare] 5 mg PO DAILY 02/11/18 traZODone [Desyrel] 50 mg PO QHS 02/11/18 Acetaminophen [Tylenol Extra 500 mg PO Q4H PRN PRN #20 tab 02/13/18 Strength] atorvastatin 40 mg tablet 40 mg PO QHS tab 10/16/18 metformin 500 mg tablet 500 mg PO BID 10/16/18 metoprolol tartrate 25 mg tablet 25 mg PO BID #60 tab 10/29/18 Warfarin Sodium [Coumadin] 8.5 mg PO SUTUTHSA 03/01/19 Surgical History: Surgical History (Last Reviewed 03/01/19 @ 12:38 by Stanley Cooper MD) History of cardioversion Onset Date: 02/2010 Z98.890 History of lithotripsy Z98.890 History of radiofrequency ablation procedure for cardiac arrhythmia Onset Date: 05/2010 Z98.890 RFA, PVI for symptomatic atrial fib per Dr. Van[facility] History of repair of left rotator cuff Z98.890 03/28/16 History of repair of right rotator cuff Z98.890 History of reverse total replacement of right shoulder joint Z98.890 08/31/2015 History of tonsillectomy Z90.89 History of total left knee replacement Z96.652 History of tubal ligation Z98.51 Surgical History: rotator cuff repair, - Smoking Status: Never smoker Tobacco Use: Non-smoker - *Family History Paternal Family History: Family History (Last Reviewed 03/01/19 @ 12:38 by Stanley Cooper MD) Father CAD (coronary artery disease) Myocardial infarction Other Diabetes History Items: Diabetes, Heart Disease Maternal Family History: Family History (Last Reviewed 03/01/19 @ 12:38 by Stanley Cooper MD) Father CAD (coronary artery disease) Myocardial infarction Other Diabetes History Items: No pertinent history Review of Systems Constitutional: Reports: Chills, Fever, Night Sweats, Weakness. Denies: Anorex ia, Malaise HEENT: Denies: Head Aches, Sinus Congestion, Sinus Drainage Cardiovascular: Denies: Chest Pain, Orthopnea, Palpitations, Paroxysmal Noc. D yspnea Respiratory: Reports: Cough, Shortness of breath at rest, Sputum production Gastrointestinal: Denies: Abdominal Pain, Hematemesis, Hematochezia, Nausea, Melena Genitourinary: Denies: Dysuria, Frequency, Hematuria, Urgency Musculoskeletal: Denies: Joint Pain, Joint Tenderness Skin: Denies: Rash Neurological: Denies: Focal weakness, Numbness, Tingling Psychiatric: Denies: Homicidal Ideations, Suicidal Ideations Hematologic/ Lymphatic: Denies: Easy Bruising, Easy Bleeding VTE Information - Inpt Only VTE Present on Admission: No VTE Mechan Device Prophylaxis: None VTE Pharm Prophylaxis ordered?: Yes Patient Problems: Active and Suspected Problems (Last Reviewed 10/16/18 @ 15:24 by Tulio Licea MD) Severe sepsis (Acute) Pneumonia (Acute) Objective: GENERAL: cooperative but appears ill looking HEENT: Atraumatic; EYES; Anicteric, Normal Conjunctiva NECK; supple, normal thyroid, RESPIRATORY: Diminished to auscultation CARDIOVASCULAR: Regular S1 S2, GI: soft, normoactive bowel sounds, : No Renal angle tenderness; EXTREMITIES: No edema, no clubbing, MUSCULOSKELETAL: no muscle waisting NEURO: Awake; no lateralizing signs. SKIN: No Rash PSYCH; Flat affect - Physical Exam Vitals/I&O's: Vital Signs Temp Pulse Resp BP Pulse Ox 98.8 F 106 H 24 H 149/77 H 99 03/01/19 11:12 03/01/19 11:11 03/01/19 11:11 03/01/19 11:11 03/01/19 11:11 Oxygen Flow Rate (L/min) 2 Oxygen Delivery Method Nasal Cannula Weight: 111.4 kg Body Mass Index (BMI) 40.8 Finger Stick Blood Glucose 107 Intake and Output for Last 24 Hours 02/27/19 02/28/19 03/01/19 23:59 23:59 23:59 Intake Total 247.5 / 247.5 Balance 247.5 / 247.5 Microbiology Past 72 Hours 03/01/19 09:55 Mucosa - Nose Rapid RSV (DFA) - Final RSV Antigen 03/01/19 09:55 Mucosa - Nose Influenza Types A,B Direct FA (UHY) - Final Laboratory Results 03/01/19 09:40: WBC 7.0, RBC 4.30, Hgb 13.7, Hct 41.6, MCV 96.7, MCH 31.9, MCHC 32.9, RDW Std Deviation 48.6 H, RDW Coeff of Cara 13.6, Plt Count 157, MPV 10.1, Immature Gran % (Auto) 0.400, Neut % (Auto) 74.4 H, Lymph % (Auto) 16.8 L, [place] % (Auto) 8.0, Eos % (Auto) 0.1, Baso % (Auto) 0.3, Absolute Neuts (auto) 5.2, Absolute Lymphs (auto) 1.17, Nucleated RBC % 0 03/01/19 09:40: PT 21.6 H, INR 1.9, APTT 34.2 03/01/19 09:40: Sodium 138, Potassium 3.9, Chloride 104, Carbon Dioxide 29.0, Anion Gap 5, BUN 11, Creatinine 0.90, Estim Creat Clear Calc 56.08, Est GFR (MDRD) Af Amer 81, Est GFR (MDRD) Non-Af 67, BUN/Creatinine Ratio 12.3, Glucose 125 H, Calcium 8.6, Total Bilirubin 1.30 H, AST 32, ALT 51, Alkaline Phosphatase 138 H, Total Protein 7.4, Albumin 3.6, Globulin 3.8, Albumin/Globulin Ratio 0.9 03/01/19 09:40: Lactic Acid 2.5 H* 03/01/19 10:40: Urine Color Yellow, Urine Clarity Clear, Urine pH 7.0, Ur Specific [place] 1.010, Urine Protein Negative, Urine Glucose (UA) Normal, Urine Ketones Negative, Urine Occult Blood 50 H, Urine Nitrite Negative, Urine Bilirubin Negative, Urine Urobilinogen Normal, Ur Leukocyte Esterase 25 H, Urine RBC 0-5 SEEN, Urine WBC 0 SEEN, Ur Squamous Epith Cells 0-5 SEEN, Urine Bacteria 0 SEEN, Urine Mucus 0 SEEN Current Medications Atorvastatin Calcium (Lipitor) 40 mg PO QHS [facility] Celecoxib (Celebrex) 200 mg PO DAILY MATT Sodium Chloride () 1,000 mls @ 150 mls/hr IV .Q6H40M [facility] Last Infusion: 03/01/19 11:33 Dose: Infused Documented by: Sodium Chloride () 1,000 mls @ 999 mls/hr IV .Q1H1M ONE Stop: 03/01/19 11:52 Last Admin: 03/01/19 11:34 Dose: 999 mls/hr Documented by: Levofloxacin (Levaquin Iv) 750 mg in 150 mls @ 100 mls/hr IV X1 ONE Stop: 03/01/19 12:38 Last Admin: 03/01/19 11:33 Dose: 100 mls/hr Documented by: Metoprolol Tartrate (Lopressor (Beta Julio Cesar)) 25 mg PO BID [facility] Non-Formulary Medication (Vit A/Vit C/Vit E/Zinc/Copper) 1 ea PO DAILY [facility] Non-Formulary Medication (Calcium Carbonate [Calcium]) 2 tab PO DAILY [facility] Non-Formulary Medication (Olmesartan/Hydrochlorothiazide [Benicar Hct 40-12.5 Mg Tab]) 1 tab PO DAILY [facility] Non-Formulary Medication (Vortioxetine Hydrobromide [Trintellix]) 20 mg PO DAILY [facility] Non-Formulary Medication (Warfarin Sodium [Coumadin]) 8.5 mg PO SUTUTHSA [facility] Non-Formulary Medication (Warfarin Sodium [Coumadin]) 9 mg PO MOWETHSA [facility] Non-Formulary Medication (Budesonide/Formoterol 160/4.5) 2 puff inhalation BID [facility] Pramipexole Dihydrochloride (Mirapex) 0.5 mg PO BID [facility] Trazodone HCl (Desyrel) 50 mg PO QHS [facility] Assessment/Plan All Active Problems (Last Reviewed 10/16/18 @ 15:24 by Tulio Licea MD) Severe sepsis (Acute) Pneumonia (Acute) 1. Severe sepsis ?Secondary to community-acquired pneumonia. Chest x-ray demonstrated right lower lobe pneumonia admitted to regular nursing floor where patient is currently being managed with a sepsis protocol consisting of cultures obtained prior to initiation of antibiotics, IV fluid resuscitation, broad-spectrum antibiotic therapy and serial monitoring of response via lactic acid levels 2. Pneumonia ~ Suspected to be secondary to streptococci pneumonia, Blood and sputum cultures sent. Patient placed on Rocephin and Levaquin (to cover for both possible strep as well as atypical) and placed on oxygen titrated to keep also is greater than 90 3. Chronic A. fib atrial fibrillation ?EKG obtained on admission demonstrated patient to be in A. fib rate is however controlled and is on systemic anticoagulation with INR of 1.9 4. Diabetes mellitus type II ~Controlled, patient's oral hypoglycemics held. Placed on long acting insulin, Accu-Cheks a.c. and at bedtime and covered with sliding scale insulin 5. Obstructive sleep apnea ~patient is on CPAP at night 6. Hypertension-blood ~pressure controlled, home medications continued with dose adjustment as needed 7. History of pulmonary embolism currently on Coumadin 8. Dyslipidemia ~patient is on statin therapy, continued at home dose 9. Obesity with BMI of 44.9 ?Weight loss advised 10. DVT prophylaxis ?On Coumadin no need for additional measures Code Visit Inpatient E&M: 48064 Init Hosp L3
[2019-03-01 13:47] LABS: Reflex Lactate? Y
[2019-03-01 14:27] LABS: Lactic Acid 1.3 mmol/L (0.4-1.9)
[2019-03-01 15:42] LABS: Lactic Acid 1.1 mmol/L (0.4-1.9)
[2019-03-01] MEDS: Budesonide Respules 0.5 MG/2 ML AMPUL.NEB. INHALATION (15:45)
[2019-03-01] MEDS: Albuterol 2.5 MG/3 ML VIAL.NEB. INHALATION (15:45)
[2019-03-01] MEDS: Ceftriaxone 2 GM in 0.9% NS 50 ML Minibag x1 IV (16:48)
[2019-03-01 17:00] LABS: Bedside Glucose 83 mg/dL (70-110)
--- NOTE | 2019-03-01 17:25 | NURSING ---
pt has cpap at home- states she does not have here but does not want one. States that due to sickness has been unable to wear anyway. oxygen placed at side of bed and pt notified that can be used qhs.
[2019-03-01] MEDS: Glucerna Shake 120 ML LIQUID PO (18:52)
[2019-03-01] MEDS: Atorvastatin Calcium 40 MG Tablet PO (22:32)
[2019-03-01] MEDS: Metoprolol Tartrate 25 MG Tablet PO (22:32)
[2019-03-01] MEDS: Pramipexole Di-HCl 0.5 MG Tablet PO (22:32)
[2019-03-01] MEDS: traZODone 50 MG Tablet PO (22:32)
[2019-03-01 23:50] LABS: Bedside Glucose 116 mg/dL (70-110)
[2019-03-02] VITALS (13 sets, daily range): BP systolic 111–129; BP diastolic 58–78; PULSE 58–90; RESP 16–21; TEMP 36.3–37.8; O2SAT 95–99
[2019-03-02 05:00] LABS: Absolute Lymphocyte Count 1.47 X10^3/uL (0.83-4.51); Absolute Neutrophil Count 4.2 X10^3/uL (2.0-7.7); Basophil# 0.02 X10^3/uL; Basophil% 0.3 % (0-1); Eosinophil# 0.02 X10^3/uL; Eosinophils% 0.3 % (0-5); Hematocrit 36.9 % (37-47); Hemoglobin 11.9 g/dL (12.0-15.0); Lymphocyte # 1.47 X10^3/ul (4.0); Lymphocyte % 23.3 % (19-41); Mean Corp Hgb Conc 32.2 g/dL (32-36); Mean Corpuscular Hgb 31.5 pg (27.0-32.0); Mean Corpuscular Volume 97.6 fL (81-99); Mean Platelet Vol. 10.1 fl (6.2-12.0); Monocyte% 9.5 % (0-10); NRBC Flagged by Analyzer 0 % (0-5); Neutrophil # 4.18 X10^3/uL (2.7-7.7); Neutrophil % 66.3 % (47-70); Platelet Count 119 K/mm3 (150-450); RBC Distribution Width CV 14.1 % (11.6-14.6); RBC Distribution Width SD 50.4 fl (35.1-43.9); Red Blood Count 3.78 M/mm3 (4.2-5.4); White Blood Count 6.3 K/mm3 (4.4-11.0)
[2019-03-02 05:03] LABS: International Normalized Ratio 1.8; Prothrombin Time (Protime)PT. 20.5 SECONDS (11.7-14.9)
[2019-03-02 05:17] LABS: Anion Gap 5 (5-15); BUN 10 mg/dL (7-18); BUN/Creat Ratio 15.1 RATIO (10-20); Calcium,Total 7.7 mg/dL (8.5-10.1); Chloride 109 mmol/L (98-107); Creatinine, Serum 0.66 mg/dL (0.55-1.02); EST Glomerular Filtration Rate 95 mL/min (>60); Est Glom Filt Rate - Afr Amer 115 mL/min (>60); Estimated Creatinine Clearance 76.47 ml/min; Glucose 106 mg/dL (74-106); Magnesium 1.8 mg/dL (1.6-2.6); Potassium 4.1 mmol/L (3.5-5.1); Sodium Level 141 mmol/L (136-145)
[2019-03-02] MEDS: 0.9% Normal Saline 1,000 ML 150 ML IV ×3 (05:41→21:41)
[2019-03-02 06:25] LABS: Bedside Glucose 93 mg/dL (70-110)
[2019-03-02] MEDS: Albuterol 2.5 MG/3 ML VIAL.NEB. INHALATION ×3 (07:07→19:03)
[2019-03-02] MEDS: Budesonide Respules 0.5 MG/2 ML AMPUL.NEB. INHALATION ×2 (07:07→19:03)
--- NOTE | 2019-03-02 07:13 | PN_ITS ---
Patient Problems: Active and Suspected Problems (Last Reviewed 03/01/19 @ 12:38 by Stanley Cooper MD) Severe sepsis (Acute) Pneumonia (Acute) Reason for Visit: Follow-up sepsis secondary to pneumonia Subjective: Patient is a 63-year-old lady admitted with progressive shortness of breath with associated fever and chills x-ray demonstrated right lower lobe pneumonia. Patient was also found to have severe sepsis on admission admitted to regular nursing floor where she is currently being managed. Subsequent respiratory assay came back positive for RSV patient was placed in droplet precautions. She also did develop diarrhea experiencing to loose bowel movement placed on enteric precautions stool for C. difficile sent. Objective: GENERAL: cooperative but appears ill looking HEENT: Atraumatic; EYES; Anicteric, Normal Conjunctiva NECK; supple, normal thyroid, RESPIRATORY: Diminished to auscultation CARDIOVASCULAR: Regular S1 S2, GI: soft, normoactive bowel sounds, : No Renal angle tenderness; EXTREMITIES: No edema, no clubbing, MUSCULOSKELETAL: no muscle waisting NEURO: Awake; no lateralizing signs. SKIN: No Rash PSYCH; Flat affect Vitals/I&O's: Vital Signs Temp Pulse Resp BP Pulse Ox 98.7 F 62 16 129/67 H 98 03/02/19 04:08 03/02/19 04:08 03/02/19 04:15 03/02/19 04:08 03/02/19 04:15 Oxygen Flow Rate (L/min) 2 Oxygen Delivery Method Nasal Cannula Weight: 108 kg Body Mass Index (BMI) 39.6 Finger Stick Blood Glucose 107 Intake and Output for Last 24 Hours 02/28/19 03/01/19 03/02/19 23:59 23:59 23:59 Intake Total 2987.5 / 3187.5 1300 / 1300 Output Total 350 / 450 900 / 900 Balance 2637.5 / 2737.5 400 / 400 Microbiology Past 72 Hours 03/01/19 10:40 Urine, Clean Catch Streptococcus pneumoniae Antigen (M - Final 03/01/19 10:40 Urine, Clean Catch Legionella Antigen - Final 03/01/19 09:55 Mucosa - Nose Rapid RSV (DFA) - Final RSV Antigen 03/01/19 09:55 Mucosa - Nose Influenza Types A,B Direct FA (HUY) - Final Laboratory Results 03/01/19 09:40: WBC 7.0, RBC 4.30, Hgb 13.7, Hct 41.6, MCV 96.7, MCH 31.9, MCHC 32.9, RDW Std Deviation 48.6 H, RDW Coeff of Cara 13.6, Plt Count 157, MPV 10.1, Immature Gran % (Auto) 0.400, Neut % (Auto) 74.4 H, Lymph % (Auto) 16.8 L, [place] % (Auto) 8.0, Eos % (Auto) 0.1, Baso % (Auto) 0.3, Absolute Neuts (auto) 5.2, Absolute Lymphs (auto) 1.17, Nucleated RBC % 0 03/01/19 09:40: PT 21.6 H, INR 1.9, APTT 34.2 03/01/19 09:40: Sodium 138, Potassium 3.9, Chloride 104, Carbon Dioxide 29.0, Anion Gap 5, BUN 11, Creatinine 0.90, Estim Creat Clear Calc 56.08, Est GFR ( RD) Af Amer 81, Est GFR (MDRD) Non-Af 67, BUN/Creatinine Ratio 12.3, Glucose 125 H, Calcium 8.6, Total Bilirubin 1.30 H, AST 32, ALT 51, Alkaline Phosphatase 138 H, Total Protein 7.4, Albumin 3.6, Globulin 3.8, Albumin/Globulin Ratio 0.9 03/01/19 09:40: Lactic Acid 2.5 H* 03/01/19 10:40: Urine Color Yellow, Urine Clarity Clear, Urine pH 7.0, Ur Specific [place] 1.010, Urine Protein Negative, Urine Glucose (UA) Normal, Urine Ketones Negative, Urine Occult Blood 50 H, Urine Nitrite Negative, Urine Bilirubin Negative, Urine Urobilinogen Normal, Ur Leukocyte Esterase 25 H, Urine RBC 0-5 SEEN, Urine WBC 0 SEEN, Ur Squamous Epith Cells 0-5 SEEN, Urine Bacteria 0 SEEN, Urine Mucus 0 SEEN 03/01/19 13:50: Lactic Acid 1.3 03/01/19 15:04: Lactic Acid 1.1 03/01/19 16:52: POC Glucose 83 03/01/19 22:38: POC Glucose 116 H 03/02/19 04:35: WBC 6.3, RBC 3.78 L, Hgb 11.9 L, Hct 36.9 L, MCV 97.6, MCH 31.5, MCHC 32.2, RDW Std Deviation 50.4 H, RDW Coeff of Cara 14.1, Plt Count 119 L, MPV 10.1, Immature Gran % (Auto) 0.300, Neut % (Auto) 66.3, Lymph % (Auto) 23.3, [place] % (Auto) 9.5, Eos % (Auto) 0.3, Baso % (Auto) 0.3, Absolute Neuts (auto) 4.2, Absolute Lymphs (auto) 1.47, Nucleated RBC % 0 03/02/19 04:35: PT 20.5 H, INR 1.8 03/02/19 04:35: Sodium 141, Potassium 4.1, Chloride 109 H, Carbon Dioxide 27.0, Anion Gap 5, BUN 10, Creatinine 0.66, Estim Creat Clear Calc 76.47, Est GFR (MDRD) Af Amer 115, Est GFR (MDRD) Non-Af 95, BUN/Creatinine Ratio 15.1, Glucose 106, Calcium 7.7 L, Magnesium 1.8 03/02/19 06:22: POC Glucose 93 Current Medications Acetaminophen (Tylenol) 650 mg PO Q6H PRN PRN PRN Reason: Pain Score 1-3/Temp > 100.7 F Last Admin: 03/01/19 22:36 Dose: 650 mg Documented by: Al Hydroxide/Mg Hydroxide (Mylanta Ii) 30 ml PO Q6H PRN PRN PRN Reason: Gastric Burning Albuterol Sulfate (Ventolin Aerosols) 2.5 mg INHALATION Q6HWA.RT COUNT INCLUDES [facility] Last Admin: 03/02/19 07:07 Dose: 2.5 mg Documented by: Albuterol Sulfate (Ventolin Aerosols) 2.5 mg INHALATION Q2H PRN PRN PRN Reason: Shortness of Breath/Wheezing Atorvastatin Calcium (Lipitor) 40 mg PO QHS [facility]CLUD[facility] Last Admin: 03/01/19 22:32 Dose: 40 mg Documented by: Budesonide (Pulmicort Aerosol) 0.5 mg INHALATION Q12H.RT COUNT INCLUDES THE [facility] Last Admin: 03/02/19 07:07 Dose: 0.5 mg Documented by: Calcium Carbonate (Tums) 1,000 mg PO DAILYCM MATT Celecoxib (Celebrex) 200 mg PO DAILY [facility] Glucagon () 1 mg IM .X1 PRN PRN Reason: Hypoglycemia Guaifenesin (Robitussin) 20 ml PO Q4H PRN PRN PRN Reason: COUGH Hydrochlorothiazide () 12.5 mg PO DAILY COUNT [facility]CLUDES [facility] Sodium Chloride () 1,000 mls @ 150 mls/hr IV .Q6H40M [facility]CLUD[facility] Last Admin: 03/02/19 05:41 Dose: 150 mls/hr Documented by: Ceftriaxone Sodium 2 gm/ (Sodium Chloride) 50 mls @ 100 mls/hr IV Q24 COUNT [facility]CLUD[facility] Stop: 03/08/19 10:01 Levofloxacin (Levaquin Iv) 750 mg in 150 mls @ 100 mls/hr IV Q24 COUNT [facility]CLUD[facility] Stop: 03/09/19 10:01 Dextrose (Dextrose 10%-Water) 250 mls @ 999 mls/hr IV .Q16M PRN; Protocol PRN Reason: HYPOGLYCEMIA Sodium Chloride () 250 mls @ 15 mls/hr IV .[id number] PRN PRN Reason: Saline Flush Insulin Human Lispro (Humalog Kwikpen (Bkc)) 0 unit SC ACHS COUNT INCLUDES THE [facility]; Protocol Last Admin: 03/02/19 06:24 Dose: Not Given Documented by: Losartan Potassium (Cozaar) 100 mg PO DAILY COUNT [facility]CLUD[facility] Magnesium Hydroxide (Milk Of Magnesia) 30 ml PO DAILY PRN PRN PRN Reason: Constipation Melatonin (Melatonin) 3 mg PO QHS PRN PRN PRN Reason: INSOMNIA Metoprolol Tartrate (Lopressor (Beta Julio Cesar)) 25 mg PO BID [facility] Last Admin: 03/01/19 22:32 Dose: 25 mg Documented by: Nitroglycerin (Nitrostat) 0.4 mg SUBLINGUAL Q5M PRN PRN Reason: CARDIAC/CHEST PAIN Non-Formulary Medication (Vortioxetine Hydrobromide [Trintellix]) 20 mg PO DAILY [facility] Non-Formulary Medication (Warfarin Sodium [Coumadin]) 8.5 mg PO SUTUTHSA COUNT [facility]CLUDES [facility] Nutritional Formula (Lactose Free) (Glucerna Shake) 120 ml PO TIDCM COUNT INCLUDES [facility] Last Admin: 03/01/19 18:52 Dose: 120 ml Documented by: Nystatin (Mycostatin Powder) 1 applic TOPICAL BID COUNT INCLUDES [facility]; Protocol Ondansetron HCl (Zofran) 4 mg IV Q8H PRN PRN PRN Reason: NAUSEA/VOMITING Oxycodone HCl (Oxyir) 5 mg PO Q4H PRN PRN PRN Reason: Pain Score 4-5/10 Oxycodone HCl (Oxyir) 10 mg PO Q4H PRN PRN PRN Reason: Pain Score 6-10/10 Pramipexole Dihydrochloride (Mirapex) 0.5 mg PO BID [facility]CLUD[facility] Last Admin: 03/01/19 22:32 Dose: 0.5 mg Documented by: Promethazine HCl (Phenergan) 25 mg IM Q6H PRN PRN PRN Reason: Breakthrough nausea/vomiting Sodium Chloride () 10 - 40 ml IV UD PRN PRN Reason: SALINE FLUSH Trazodone HCl (Desyrel) 50 mg PO QHS [facility]CLUD[facility] Last Admin: 03/01/19 22:32 Dose: 50 mg Documented by: Warfarin Sodium (Coumadin (Pbkc)) 9 mg PO [id number] COUNT INCLUDES THE [facility] STROKE Vital Signs/Narrative: Vital Signs Temp Pulse Resp BP Pulse Ox 03/02/19 04:15 16 98 03/02/19 04:08 98.7 F 62 16 129/67 H 98 Medical Necessity - Tobacco Use Smoking Status: Never smoker Tobacco Use: Secondhand Assessment/Plan All Active Problems (Last Reviewed 03/01/19 @ 12:38 by Stanley Cooper MD) Severe sepsis (Acute) Pneumonia (Acute) Patient is a 63-year-old lady admitted with progressive shortness of breath with associated fever and chills x-ray demonstrated right lower lobe pneumonia. Patient was also found to have severe sepsis on admission admitted to regular nursing floor where she is currently being managed. 1. Severe sepsis ?Secondary to community-acquired pneumonia. Chest x-ray demonstrated right lower lobe pneumonia admitted to regular nursing floor where patient is currently being managed with a sepsis protocol consisting of cultures obtained prior to initiation of antibiotics, IV fluid resuscitation, broad-spectrum antibiotic therapy and serial monitoring of response via lactic acid levels 2. Pneumonia secondary to RSV pneumonia with superimposed bacterial pneumonia thought to be from streptococcal pneumonia ~ Blood and sputum cultures sent. Patient placed on Rocephin and Levaquin (to cover for both possible strep as well as atypical) and placed on oxygen titrated to keep also is greater than 90 ?03/02/2019: Patient was placed under droplet isolation while she tested positive for RSV. 3. Chronic A. fib atrial fibrillation ?EKG obtained on admission demonstrated patient to be in A. fib rate is however controlled and is on systemic anticoagulation with INR of 1.9 4. Diabetes mellitus type II ~Controlled, patient's oral hypoglycemics held. Placed on long acting insulin, Accu-Cheks a.c. and at bedtime and covered with sliding scale insulin 5. Obstructive sleep apnea ~patient is on CPAP at night 6. Hypertension-blood ~pressure controlled, home medications continued with dose adjustment as needed 7. History of pulmonary embolism currently on Coumadin 8. Dyslipidemia ~patient is on statin therapy, continued at home dose 9. Obesity with BMI of 44.9 ?Weight loss advised 10. DVT prophylaxis ?On Coumadin no need for additional measures 11. Diarrhea Do suspect antibiotic induced diarrhea patient was placed on enteric precautions as well as ruling out C. difficile colitis Code Visit Inpatient E&M: 95611 Subs Hosp L3
[2019-03-02] MEDS: Celecoxib 200 MG Capsule PO (09:11)
[2019-03-02] MEDS: hydroCHLOROthiazide 12.5mg 12.5 MG PO (09:11)
[2019-03-02] MEDS: Nystatin Powder 15gm Bottle 1 APPLIC TOPICAL ×2 (09:11→21:53)
[2019-03-02] MEDS: Metoprolol Tartrate 25 MG Tablet PO (09:11)
[2019-03-02] MEDS: Pramipexole Di-HCl 0.5 MG Tablet PO ×2 (09:11→21:51)
[2019-03-02] MEDS: Losartan Potassium 100 MG Tablet PO (09:11)
[2019-03-02] MEDS: Glucerna Shake 120 ML LIQUID PO ×3 (09:18→17:33)
[2019-03-02] MEDS: levoFLOXacin IV 750 MG/150 ML BAG 100 MG IV (10:02)
[2019-03-02] MEDS: Insulin Lispro 100 UNIT/ML INSULN.PEN SC (11:38)
[2019-03-02 11:46] LABS: Bedside Glucose 153 mg/dL (70-110)
[2019-03-02] MEDS: 0.9% Saline Lock 10 ML Syringe IV (15:05)
[2019-03-02 17:40] LABS: Bedside Glucose 104 mg/dL (70-110)
[2019-03-02] MEDS: Atorvastatin Calcium 40 MG Tablet PO (21:51)
[2019-03-02] MEDS: traZODone 50 MG Tablet PO (21:52)
[2019-03-02 22:05] LABS: Bedside Glucose 118 mg/dL (70-110)
[2019-03-03 02:56] VITALS: BP 132/60; PULSE 70; RESP 18; TEMP 36; O2SAT 97
[2019-03-03] MEDS: 0.9% Normal Saline 1,000 ML 150 ML IV (04:24)
[2019-03-03 05:34] LABS: Absolute Lymphocyte Count 1.55 X10^3/uL (0.83-4.51); Absolute Neutrophil Count 2.8 X10^3/uL (2.0-7.7); Basophil# 0.01 X10^3/uL; Basophil% 0.2 % (0-1); Eosinophil# 0.13 X10^3/uL; Eosinophils% 2.6 % (0-5); Hematocrit 36.4 % (37-47); Hemoglobin 11.8 g/dL (12.0-15.0); Lymphocyte # 1.55 X10^3/ul (4.0); Lymphocyte % 31.1 % (19-41); Mean Corp Hgb Conc 32.4 g/dL (32-36); Mean Corpuscular Hgb 31.4 pg (27.0-32.0); Mean Corpuscular Volume 96.8 fL (81-99); Mean Platelet Vol. 9.9 fl (6.2-12.0); Monocyte# 0.49 X10^3/uL; Monocyte% 9.8 % (0-10); NRBC Flagged by Analyzer 0 % (0-5); Neutrophil # 2.79 X10^3/uL (2.7-7.7); Neutrophil % 56.1 % (47-70); Platelet Count 121 K/mm3 (150-450); RBC Distribution Width CV 13.9 % (11.6-14.6); RBC Distribution Width SD 49.7 fl (35.1-43.9); Red Blood Count 3.76 M/mm3 (4.2-5.4)
[2019-03-03 05:38] LABS: International Normalized Ratio 1.5; Prothrombin Time (Protime)PT. 18.2 SECONDS (11.7-14.9)
[2019-03-03 05:41] LABS: Anion Gap 3 (5-15); BUN 13 mg/dL (7-18); BUN/Creat Ratio 21.7 RATIO (10-20); Calcium,Total 7.8 mg/dL (8.5-10.1); Chloride 112 mmol/L (98-107); EST Glomerular Filtration Rate 107 mL/min (>60); Est Glom Filt Rate - Afr Amer 129 mL/min (>60); Estimated Creatinine Clearance 84.11 ml/min; Glucose 106 mg/dL (74-106); Potassium 4.1 mmol/L (3.5-5.1); Sodium Level 143 mmol/L (136-145)
[2019-03-03 06:45] LABS: Bedside Glucose 106 mg/dL (70-110)
[2019-03-03 07:26] VITALS: PULSE 59; RESP 16; O2SAT 95
[2019-03-03] MEDS: Budesonide Respules 0.5 MG/2 ML AMPUL.NEB. INHALATION (07:26)
[2019-03-03] MEDS: Albuterol 2.5 MG/3 ML VIAL.NEB. INHALATION ×2 (07:26→14:03)
[2019-03-03 08:35] VITALS: BP 150/66; PULSE 51; RESP 18; TEMP 36.6; O2SAT 95
[2019-03-03 10:47] VITALS: BP 150/66; PULSE 51
[2019-03-03] MEDS: Metoprolol Tartrate 25 MG Tablet PO (10:47)
[2019-03-03] MEDS: Glucerna Shake 120 ML LIQUID PO (10:47)
[2019-03-03] MEDS: Calcium Carbonate 500 MG Tablet 1000 MG PO (10:47)
[2019-03-03] MEDS: hydroCHLOROthiazide 12.5mg 12.5 MG PO (10:48)
[2019-03-03] MEDS: Celecoxib 200 MG Capsule PO (10:48)
[2019-03-03] MEDS: Pramipexole Di-HCl 0.5 MG Tablet PO (10:48)
[2019-03-03] MEDS: Losartan Potassium 100 MG Tablet PO (10:48)
[2019-03-03] MEDS: Nystatin Powder 15gm Bottle 1 APPLIC TOPICAL (10:49)
--- NOTE | 2019-03-03 11:15 | DCINST_ITS ---
- Discharge Diagnoses Current Active Problems: Current Active and Chronic Problems (Last Reviewed 03/01/19 @ 12:38 by Stanley Cooper MD) Severe sepsis (Acute) Pneumonia (Acute) You will use the following diet at home:: Cardiac Your food should be the consistency of: Regular Your liquids should be the consistency of: Regular/Thin Discharge Activity: Return to Normal Activity Call your doctor if you observe: Fever of 101 or Higher, Shortness of breath, Chest pain Instructions: What Is Pneumonia?, Treating Pneumonia, RSV (Respiratory Syncytial Virus), Preventing Common Respiratory Infections Allergies/Adverse Reactions: Allergies flecainide [Flecainide] Allergy (Verified 03/01/19 09:28) Rash Medications to take at Discharge Albuterol Inhaler [Ventolin Hfa] 2 puff INHALATION Q4H PRN PRN 04/20/17 Budesonide/Formoterol 160/4.5 [Symbicort 160/4.5 Mcg Inhaler (SP)] 2 puff INHALATION BID 04/20/17 Celecoxib [Celebrex] 200 mg PO DAILY 04/20/17 Pramipexole Di-HCl [Mirapex] 0.5 mg PO BID 04/20/17 Vit A/Vit C/Vit E/Zinc/Copper [Preservision Areds Softgel] 1 ea PO DAILY 04/20/17 Vortioxetine Hydrobromide [Trintellix] 20 mg PO DAILY 04/20/17 Olmesartan/Hydrochlorothiazide [Benicar Hct 40-12.5 MG Tab] 1 tab PO DAILY 02/11/18 Solifenacin Succinate [Vesicare] 5 mg PO DAILY 02/11/18 traZODone [Desyrel] 50 mg PO QHS 02/11/18 atorvastatin 40 mg tablet 40 mg PO QHS tab 10/16/18 metformin 500 mg tablet 500 mg PO BID 10/16/18 metoprolol tartrate 25 mg tablet 25 mg PO BID #60 tab 10/29/18 Calcium Carbonate [Tums] 200 mg PO Q4H PRN PRN 03/01/19 Calcium Citrate/Vitamin D3 [Calcium Citrate-Vit D3 Caplet] 1 ea PO BID 03/01/19 Hydrocodone/Acetaminophen [[place] 5-325 Tablet] 1 ea PO BID 03/01/19 Warfarin Sodium [Coumadin] 4 mg PO MOWEFR 03/01/19 Warfarin [Coumadin] 1 mg PO SUTUTHSA 03/01/19 Warfarin [Coumadin] 5 mg PO MOWEFR 03/01/19 Warfarin [Coumadin] 7.5 mg PO SUTUTHSA 03/01/19 Levofloxacin 750 mg PO DAILY #5 tab 03/03/19 The following prescriptions were given: Levofloxacin 750 mg PO DAILY #5 tab Transmission Status: Pending to [facility] Primary Care Physician: Ruddy Corral Chi, MD [Primary Care Provider] - Please follow up with your Primary Care Physician in: one week Test Results: Test results from this visit will be discussed in further detail at your follow- up appointment, if applicable. Proposed Discharge Date: 03/03/19
--- NOTE | 2019-03-03 11:18 | PCM.DC.SUM ---
Discharge Date and Diagnosis Date of Admission: 03/01/19 Date of Discharge: 03/03/19 - Primary Discharge Diagnosis Active and Suspected Problems (Last Reviewed 03/01/19 @ 12:38 by Stanley Cooper MD) Severe sepsis (Acute) Pneumonia (Acute) - Secondary Discharge Diagnosis Chronic Problems (Last Reviewed 03/01/19 @ 12:38 by Stanley Cooper MD) History of pulmonary embolism (Chronic) Deep vein thrombosis, lower left extremity (Chronic) Essential (primary) hypertension (Chronic) Paroxysmal atrial fibrillation (Chronic) Hyperlipidemia (Chronic) Hospital Course and Treatment Imaging Results: Diagnostic Data Chest X-Ray 03/01/19 09:40 IMPRESSION: Right lower lung infiltrate. Electronically Signed: Imer Treadwell MD at 9:59 EST , Service support , Operations: None Procedures: None Summary of Care Provided: The patient is a 63 year old F with an extensive past medical history as listed which includes a history of PE, DVT and hypertension as well as A. fib and hyperlipidemia. She was admitted through the ED on 03/01/2019 with a complaint of shortness of breath which started 4 days prior to admission. She had assisted cough productive of yellowish sputum and also had episodic fever and chills. In the ED, chest x-ray done showed right lower lung infiltrate consistent with pneumonia and he also had elevated lactic acid. She was admitted and managed for sepsis due to community-acquired pneumonia. Blood cultures were obtained and she was resuscitated with IV fluids. She was started on IV antibiotics and started on IV ceftriaxone and Levaquin. She was also put on oxygen to maintain saturation above 90%. Respiratory panel done was positive for RSV. Patient also started having diarrhea was subsequently improved. C. difficile done was negative. Patient shortness of breath resolved and she felt much better. Patient expressed interest in going home on 03/03/2019. Patient remained stable and was discharged on 03/03/2019 with a prescription for p.o. Levaquin 750 mg daily for 5 days. She is to follow-up with her primary care doctor within 1 week. Patient seen and examined prior to discharge. She had no complaints and felt well. Diarrhea had improved. Review of systems otherwise negative. Labs and vitals reviewed. Home medication reviewed and reconciled. o/e: Vital Signs Height 5 ft 5 in Weight: 238 lb 1.588 oz Weight in Pounds 238.1 lbs Pulse Ox 97 Temperature 98.3 F Pulse Rate 51 Respiratory Rate 18 Blood Pressure 127/88 Blood Pressure Position Sitting [] - Physical Exam Vitals/I&O's: Vital Signs Temp Pulse Resp BP Pulse Ox 97.9 F 51 L 18 150/66 H 95 03/03/19 08:35 03/03/19 08:35 03/03/19 08:35 03/03/19 08:35 03/03/19 08:35 Oxygen Flow Rate (L/min) 2 Oxygen Delivery Method Room Air Weight: 238 lb 1.588 oz Body Mass Index (BMI) 39.6 Finger Stick Blood Glucose 107 Intake and Output for Last 24 Hours 03/01/19 03/02/19 03/03/19 23:59 23:59 23:59 Intake Total 2987.5 / 3187.5 4200.0 / 4200.0 1200 / 1200 Output Total 350 / 450 1100 / 1100 Balance 2637.5 / 2737.5 3100.0 / 3100.0 1200 / 1200 General: Alert, Oriented x3, Cooperative, No apparent distress HEENT: Atraumatic, PERRLA, EOMI, Normocephalic Oral: Moist Mucosa Neck: Supple, No JVD, Negative Carotid Bruits Lungs: Clear to auscultation, Normal air movement, No rhonchi, No wheeze, No rales Cardiovascular: Regular rate, Regular Rhythm, Normal S1, Normal S2, No murmurs Abdomen: Bowel Sounds Present, Soft, Non Tender, Non-Distended, No Hepato-splenomegaly Extremities: No clubbing, No cyanosis, No edema, Capillary Refill Less than 3 Seconds Skin: No rashes, No breakdown Musculoskeletal: No Tenderness to Palpation of Joints or Extremities Lymphatic: No Cervical, Supraclavicular, or Inguinal Adenopathy Neurological: Cranial nerves II-XII grossly intact, Neuro grossly intact, Motor Exam 5/5 strength throughout Psych/Mental Status: Normal Affect, Appropriate, Alert and oriented to time, place, person, mood and affect Microbiology Past 72 Hours 03/03/19 08:30 Stool C. difficile DNA Amplification - Final 03/01/19 10:40 Urine, Clean Catch Urine Culture - Final Culture exhibits no growth. 03/01/19 10:40 Urine, Clean Catch Streptococcus pneumoniae Antigen (M - Final 03/01/19 10:40 Urine, Clean Catch Legionella Antigen - Final 03/01/19 09:55 Mucosa - Nose Rapid RSV (DFA) - Final RSV Antigen 03/01/19 09:55 Mucosa - Nose Influenza Types A,B Direct FA (HUY) - Final Laboratory Results 03/02/19 11:35: POC Glucose 153 H 03/02/19 17:31: POC Glucose 104 03/02/19 21:48: POC Glucose 118 H 03/03/19 05:10: WBC 5.0, RBC 3.76 L, Hgb 11.8 L, Hct 36.4 L, MCV 96.8, MCH 31.4, MCHC 32.4, RDW Std Deviation 49.7 H, RDW Coeff of Cara 13.9, Plt Count 121 L, MPV 9.9, Immature Gran % (Auto) 0.200, Neut % (Auto) 56.1, Lymph % (Auto) 31.1, [place] % (Auto) 9.8, Eos % (Auto) 2.6, Baso % (Auto) 0.2, Absolute Neuts (auto) 2.8, Absolute Lymphs (auto) 1.55, Nucleated RBC % 0 03/03/19 05:10: PT 18.2 H, INR 1.5 03/03/19 05:10: Sodium 143, Potassium 4.1, Chloride 112 H, Carbon Dioxide 28.0, Anion Gap 3 L, BUN 13, Creatinine 0.60, Estim Creat Clear Calc 84.11, Est GFR (MDRD) Af Amer 129, Est GFR (MDRD) Non-Af 107, BUN/Creatinine Ratio 21.7 H, Glucose 106, Calcium 7.8 L 03/03/19 06:35: POC Glucose 106 Current Medications Acetaminophen (Tylenol) 650 mg PO Q6H PRN PRN PRN Reason: Pain Score 1-3/Temp > 100.7 F Last Admin: 03/01/19 22:36 Dose: 650 mg Documented by: Al Hydroxide/Mg Hydroxide (Mylanta Ii) 30 ml PO Q6H PRN PRN PRN Reason: Gastric Burning Albuterol Sulfate (Ventolin Aerosols) 2.5 mg INHALATION Q6HWA.RT MATT Last Admin: 03/03/19 07:26 Dose: 2.5 mg Documented by: Albuterol Sulfate (Ventolin Aerosols) 2.5 mg INHALATION Q2H PRN PRN PRN Reason: Shortness of Breath/Wheezing Atorvastatin Calcium (Lipitor) 40 mg PO QHS [facility] Last Admin: 03/02/19 21:51 Dose: 40 mg Documented by: Budesonide (Pulmicort Aerosol) 0.5 mg INHALATION Q12H.RT [facility] Last Admin: 03/03/19 07:26 Dose: 0.5 mg Documented by: Calcium Carbonate (Tums) 1,000 mg PO DAILYCM [facility] Last Admin: 03/03/19 10:47 Dose: 1,000 mg Documented by: Celecoxib (Celebrex) 200 mg PO DAILY [facility] Last Admin: 03/03/19 10:48 Dose: 200 mg Documented by: Glucagon () 1 mg IM .X1 PRN PRN Reason: Hypoglycemia Guaifenesin (Robitussin) 20 ml PO Q4H PRN PRN PRN Reason: COUGH Hydrochlorothiazide () 12.5 mg PO DAILY [facility] Last Admin: 03/03/19 10:48 Dose: 12.5 mg Documented by: Sodium Chloride () 1,000 mls @ 150 mls/hr IV .Q6H40M [facility] Last Admin: 03/03/19 04:24 Dose: 150 mls/hr Documented by: Ceftriaxone Sodium 2 gm/ (Sodium Chloride) 50 mls @ 100 mls/hr IV Q24 [facility] Stop: 03/08/19 10:01 Last Admin: 03/03/19 10:45 Dose: 100 mls/hr Documented by: Levofloxacin (Levaquin Iv) 750 mg in 150 mls @ 100 mls/hr IV Q24 [facility] Stop: 03/09/19 10:01 Last Infusion: 03/02/19 11:36 Dose: Infused Documented by: Dextrose (Dextrose 10%-Water) 250 mls @ 999 mls/hr IV .Q16M PRN; Protocol PRN Reason: HYPOGLYCEMIA Sodium Chloride () 250 mls @ 15 mls/hr IV .[id number] PRN PRN Reason: Saline Flush Insulin Human Lispro (Humalog Kwikpen (Bkc)) 0 unit SC ACHS [facility]; Protocol Last Admin: 03/03/19 06:38 Dose: Not Given Documented by: Losartan Potassium (Cozaar) 100 mg PO DAILY [facility] Last Admin: 03/03/19 10:48 Dose: 100 mg Documented by: Magnesium Hydroxide (Milk Of Magnesia) 30 ml PO DAILY PRN PRN PRN Reason: Constipation Melatonin (Melatonin) 3 mg PO QHS PRN PRN PRN Reason: INSOMNIA Metoprolol Tartrate (Lopressor (Beta Julio Cesar)) 25 mg PO BID [facility] Last Admin: 03/02/19 21:52 Dose: Not Given Documented by: Nitroglycerin (Nitrostat) 0.4 mg SUBLINGUAL Q5M PRN PRN Reason: CARDIAC/CHEST PAIN Nutritional Formula (Lactose Free) (Glucerna Shake) 120 ml PO TIDCM [facility] Last Admin: 03/03/19 10:47 Dose: 120 ml Documented by: Nystatin (Mycostatin Powder) 1 applic TOPICAL BID [facility]; Protocol Last Admin: 03/03/19 10:49 Dose: 1 applicatio Documented by: Ondansetron HCl (Zofran) 4 mg IV Q8H PRN PRN PRN Reason: NAUSEA/VOMITING Oxycodone HCl (Oxyir) 5 mg PO Q4H PRN PRN PRN Reason: Pain Score 4-5/10 Oxycodone HCl (Oxyir) 10 mg PO Q4H PRN PRN PRN Reason: Pain Score 6-10/10 Pramipexole Dihydrochloride (Mirapex) 0.5 mg PO BID [facility] Last Admin: 03/03/19 10:48 Dose: 0.5 mg Documented by: Promethazine HCl (Phenergan) 25 mg IM Q6H PRN PRN PRN Reason: Breakthrough nausea/vomiting Sodium Chloride () 10 - 40 ml IV UD PRN PRN Reason: SALINE FLUSH Last Admin: 03/02/19 15:05 Dose: 10 ml Documented by: Trazodone HCl (Desyrel) 50 mg PO QHS [facility] Last Admin: 03/02/19 21:52 Dose: 50 mg Documented by: Warfarin Sodium (Coumadin (Pbkc)) 7.5 mg PO SuTuThSa@1700 [facility] Last Admin: 03/02/19 17:33 Dose: 7.5 mg Documented by: Warfarin Sodium (Coumadin (Pbkc)) 1 mg PO SuTuThSa@1700 [facility] Last Admin: 03/02/19 17:33 Dose: 1 mg Documented by: Warfarin Sodium (Coumadin (Pbkc)) 9 mg PO MoWeFr@1700 [facility] Discharge Diet: Low fat/ Low Cholesterol Discharge Activity: Return to Normal Activity Weight Bearing Status: Weight bearing as tolerated Call your doctor if you observe: Fever of 101 or Higher, Shortness of breath, Chest pain Home Medications: Medications to take at Discharge RX: Albuterol Inhaler [Ventolin Hfa] 2 puff INHALATION Q4H PRN PRN 04/20/17 RX: Budesonide/Formoterol 160/4.5 [Symbicort 160/4.5 Mcg Inhaler (SP)] 2 puff INHALATION BID 04/20/17 RX: Celecoxib [Celebrex] 200 mg PO DAILY 04/20/17 RX: Pramipexole Di-HCl [Mirapex] 0.5 mg PO BID 04/20/17 RX: Vit A/Vit C/Vit E/Zinc/Copper [Preservision Areds Softgel] 1 ea PO DAILY 04/20/17 RX: Vortioxetine Hydrobromide [Trintellix] 20 mg PO DAILY 04/20/17 Olmesartan/Hydrochlorothiazide [Benicar Hct 40-12.5 MG Tab] 1 tab PO DAILY 02/11/18 RX: traZODone [Desyrel] 50 mg PO QHS 02/11/18 Solifenacin Succinate [Vesicare] 5 mg PO DAILY 02/11/18 atorvastatin 40 mg tablet 40 mg PO QHS tab 10/16/18 metformin 500 mg tablet 500 mg PO BID 10/16/18 metoprolol tartrate 25 mg tablet 25 mg PO BID #60 tab 10/29/18 RX: Calcium Carbonate [Tums] 200 mg PO Q4H PRN PRN 03/01/19 RX: Calcium Citrate/Vitamin D3 [Calcium Citrate-Vit D3 Caplet] 1 ea PO BID 03/01/19 RX: Hydrocodone/Acetaminophen [[place] 5-325 Tablet] 1 ea PO BID 03/01/19 RX: Warfarin Sodium [Coumadin] 4 mg PO MOWEFR 03/01/19 RX: Warfarin [Coumadin] 1 mg PO SUTUTHSA 03/01/19 RX: Warfarin [Coumadin] 5 mg PO MOWEFR 03/01/19 RX: Warfarin [Coumadin] 7.5 mg PO SUTUTHSA 03/01/19 RX: levoFLOXacin tablet [Levaquin tablet] 750 mg PO DAILY #5 tab 03/03/19 Following Prescrptions Were Given to Patient: RX: levoFLOXacin tablet [Levaquin tablet] 750 mg PO DAILY #5 tab Transmission Status: Pending to [facility] Primary Care Physician: Ruddy Corral Chi, MD [Primary Care Provider] - Please follow up with your Primary Care Physician in: one week Patient Instructions: What Is Pneumonia?, Treating Pneumonia, RSV (Respiratory Syncytial Virus), Preventing Common Respiratory Infections Disposition: Home Minutes spent on discharge:: 40 Patient Condition:: Stable Medical Necessity - Tobacco Use Smoking Status: Never smoker Tobacco Use: Secondhand Meaningful Use Info Meaningful Use Diagnoses (Choose all that apply): None applicable Code Visit Inpatient E&M: 25914 Disch Hosp
[2019-03-03] MEDS: levoFLOXacin IV 750 MG/150 ML BAG 100 MG IV (11:21)
--- NOTE | 2019-03-03 11:47 | CASEMGMT ---
RN CM Assessment Presentation: pneumonia, sepsis Intro role of CM and purpose of RN CM assessment to patient. Pt is awake, alert and able to particiapte in assessment. Demographics, PCP and Pharmacy verified. Pt discharged today and denies any needs on dc. PCP: Dr. Corral Specialists: Dr. Licea Preferred Pharmacy: pt would like medications sent to mail order pharmacy. Insurance: [facility] Prescription Benefit: none LNOK: Jeff Gilliam, son Living Arrangements: pt lives independently, denies any care needs. Transportation: drives, denies any needs DME: cpap, cane HHC/SNF: none SW Referral: none Patient DC goals: Home DC PLAN: Home, no needs identified. Deborah GÓMEZN RN ACM
[2019-03-03 12:06] LABS: Bedside Glucose 119 mg/dL (70-110)
[2019-03-03 14:03] VITALS: PULSE 70; RESP 16; O2SAT 96
[2019-03-03 15:43] VITALS: BP 127/88; PULSE 51; RESP 18; TEMP 36.8; O2SAT 97
--- NOTE | 2019-03-04 16:35 | CASEMGMT ---
Case Management DC F/u Call: DC Date: 03/03/2019 DC Diagnosis: Severe sepsis (Acute), Pneumonia (Acute) DC Disposition: Home Lace/Strata: 11/28 Called patient cell phone on listed demographic, patient answered, this adjusto writer operator introduced self and role. Patient states that she is doing better. States did not get her antibiotic Levaquin filled because she thought it was going to be around $10 and it is $35 with Riya Moscoso. Patient gives this adjusto writer operator permission to contact [facility] and try to provide medication coupon card to lower cost and return call to her. Called Riya Moscoso- s/w [facility] and provided a Good Rx Coupon Card over the phone. Per [facility] Med benefits with medication copay for Levaquin is $33.10. With Good Rx coupon lowered to $19.56. Return call to patient and made aware, patient states has about $13 on her- this adjusto writer operator inquired if other family or friends can assist with remainder of cost and stressed importance of taking medication. Patient states sthat she will have to see and that her son gets paid once/month.Patient states gets other medications through the [facility] through the mail for free. This adjusto writer operator states alternative to call [facility] pharmacy and inquire if they will fill medication for her immediately at no cost and [facility] for a transfer in prescription. Alternatively, if either of the two suggestions do not work, advised her to call her PCP Dr Corral and ask for a cheaper alternative antibiotic. F/u with Dr Corral on 03/10/2019 at 0900. Denies any further issues, concerns, or questions with [facility]CI, medications, or f/u. Thanked patient for choosing care with [facility] and ended conversation. Robbin Diaz, RNCM
--- NOTE | 2019-03-05 13:43 | CASEMGMT ---
Phone call placed to patient in follow-up to pt's inabilty to afford antibiotic prescription. Pt states her children were able to contribute to the cost and she was able to corn picker the prescription last night. Pt states she took a dose last evening and will continue to finish taking the medication as prescribed. Donovan Gu RN
== END 2019-03-03 16:15 | disposition home or self-care (01) | DRG 871 ==
LOC: ED 10:24 → MS3 13:08
PROVIDERS: Admitting Provider Internal Medicine; Emergency Provider Emergency Medicine; Family Provider Family Medicine Geriatric Medicine; PCP Family Medicine Geriatric Medicine; Visit Provider Student in an Organized Health Care Education/Training Program
DX: A41.9 Sepsis, unspecified organism (principal); J12.1 Respiratory syncytial virus pneumonia; J44.0 Chronic obstructive pulmonary disease with (acute) lower respiratory infection; Z68.41 Body mass index [BMI] 40.0-44.9, adult; I48.20 Chronic atrial fibrillation, unspecified; R65.20 Severe sepsis without septic shock; B97.4 Respiratory syncytial virus as the cause of diseases classified elsewhere; R19.7 Diarrhea, unspecified; E11.9 Type 2 diabetes mellitus without complications; I10 Essential (primary) hypertension; E78.5 Hyperlipidemia, unspecified; E66.01 Morbid (severe) obesity due to excess calories; G47.33 Obstructive sleep apnea (adult) (pediatric); Z79.1 Long term (current) use of non-steroidal anti-inflammatories (NSAID); Z86.73 Personal history of transient ischemic attack (TIA), and cerebral infarction without residual deficits; Z86.711 Personal history of pulmonary embolism; Z79.01 Long term (current) use of anticoagulants; Z79.51 Long term (current) use of inhaled steroids; Z82.49 Family history of ischemic heart disease and other diseases of the circulatory system; Z87.442 Personal history of urinary calculi; Z96.652 Presence of left artificial knee joint; Z83.3 Family history of diabetes mellitus; Z98.51 Tubal ligation status; Z86.718 Personal history of other venous thrombosis and embolism
CPT/HCPCS: 36415; 71045; 80048; 80053; 81001; 82962; 83605; 83735; 85025; 85610; 85730; 87040; 87077; 87086; 87088; 87449; 87493; 87633; 87804; 87807; 93005; 94640; 97802; 99251; 99285; J7030; J7040; A4216; G0463; J0696

== ENCOUNTER → 2019-03-24 09:49 | Outpatient (CLI) | payer MEDICARE, OTHER, SELFPAY ==
[2019-03-01 14:28] VITALS: BMI 39.6
[2019-03-24 12:15] LABS: Absolute Lymphocyte Count 1.97 X10^3/uL (0.83-4.51); Absolute Neutrophil Count 3.8 X10^3/uL (2.0-7.7); Basophil# 0.02 X10^3/uL; Basophil% 0.3 % (0-1); Eosinophil# 0.07 X10^3/uL; Eosinophils% 1.1 % (0-5); Hematocrit 42.4 % (37-47); Hemoglobin 14.3 g/dL (12.0-15.0); Lymphocyte # 1.97 X10^3/ul (4.0); Lymphocyte % 30.6 % (19-41); Mean Corp Hgb Conc 33.7 g/dL (32-36); Mean Corpuscular Hgb 31.7 pg (27.0-32.0); Mean Platelet Vol. 10.4 fl (6.2-12.0); Monocyte# 0.53 X10^3/uL; Monocyte% 8.2 % (0-10); NRBC Flagged by Analyzer 0 % (0-5); Neutrophil # 3.84 X10^3/uL (2.7-7.7); Neutrophil % 59.6 % (47-70); Platelet Count 168 K/mm3 (150-450); RBC Distribution Width CV 13.2 % (11.6-14.6); RBC Distribution Width SD 45.4 fl (35.1-43.9); Red Blood Count 4.51 M/mm3 (4.2-5.4); White Blood Count 6.4 K/mm3 (4.4-11.0)
[2019-03-24 12:54] LABS: Vitamin D,25 Hydroxy 38.6 ng/mL (29.95-100.01)
[2019-03-24 13:11] LABS: ALB/GLOB Ratio 1.1 RATIO (0.9-2.4); AST(SGOT) 14 U/L (15-37); Alanine Aminotransfer ALT/SGPT 29 U/L (13-56); Albumin, Serum 3.7 g/dL (3.2-5.0); Alkaline Phosphatase 95 U/L (45-117); Anion Gap 7 (5-15); BUN 23 mg/dL (7-18); BUN/Creat Ratio 28.8 RATIO (10-20); Calcium,Total 9.5 mg/dL (8.5-10.1); Chloride 106 mmol/L (98-107); EST Glomerular Filtration Rate 77 mL/min (>60); Est Glom Filt Rate - Afr Amer 93 mL/min (>60); Globulin 3.4 g/dL (2.2-4.2); Glucose 104 mg/dL (74-106); Protein, Total 7.1 g/dL (6.4-8.2); Sodium Level 139 mmol/L (136-145)
== END ==
LOC: POLAB3 09:50
PROVIDERS: PCP Family Medicine Geriatric Medicine; Visit Provider Family Medicine Geriatric Medicine
DX: E11.9 Type 2 diabetes mellitus without complications (principal); I10 Essential (primary) hypertension; E55.9 Vitamin D deficiency, unspecified
CPT/HCPCS: 36415; 80053; 82306; 84443; 85025

== ENCOUNTER 2019-07-22 14:11 | Outpatient (RCR) | payer MEDICARE, OTHER, SELFPAY ==
[2019-04-23 08:21] VITALS: BMI 38.6
[2019-07-14 14:44] LABS: International Normalized Ratio 2.1; Prothrombin Time (Protime)PT. 23.3 SECONDS (11.7-14.9)
[2019-07-22 15:18] LABS: International Normalized Ratio 1.8; Prothrombin Time (Protime)PT. 20.5 SECONDS (11.7-14.9)
== END 2019-07-22 18:00 | disposition home or self-care (01) ==
LOC: LAB 14:11
PROVIDERS: PCP Family Medicine Geriatric Medicine; Referring Provider Physician Assistant Medical; Visit Provider Physician Assistant Medical
DX: I48.20 Chronic atrial fibrillation, unspecified (principal)
CPT/HCPCS: 36415; 85610

== ENCOUNTER 2019-08-19 08:23 | Outpatient (RCR) | payer MEDICARE, OTHER, SELFPAY ==
[2019-04-23 08:21] VITALS: BMI 38.6
[2019-07-29 16:55] LABS: International Normalized Ratio 2.2; Prothrombin Time (Protime)PT. 23.9 SECONDS (11.7-14.9)
[2019-08-05 10:37] LABS: International Normalized Ratio 2.1; Prothrombin Time (Protime)PT. 22.9 SECONDS (11.7-14.9)
[2019-08-12 11:28] LABS: International Normalized Ratio 2.4; Prothrombin Time (Protime)PT. 25.9 SECONDS (11.7-14.9)
[2019-08-19 08:57] LABS: Anion Gap 8 (5-15); BUN 13 mg/dL (7-18); BUN/Creat Ratio 15.7 RATIO (10-20); Calcium,Total 8.8 mg/dL (8.5-10.1); Chloride 109 mmol/L (98-107); Creatinine, Serum 0.83 mg/dL (0.55-1.02); EST Glomerular Filtration Rate 74 mL/min (>60); Est Glom Filt Rate - Afr Amer 89 mL/min (>60); Glucose 121 mg/dL (74-106); Potassium 3.8 mmol/L (3.5-5.1); Sodium Level 143 mmol/L (136-145)
[2019-08-19 09:00] LABS: International Normalized Ratio 2.3; Prothrombin Time (Protime)PT. 24.8 SECONDS (11.7-14.9)
== END 2019-08-19 18:00 | disposition home or self-care (01) ==
LOC: LAB 08:23
PROVIDERS: Internal Medicine Cardiovascular Disease; PCP Family Medicine Geriatric Medicine; Referring Provider Physician Assistant Medical; Visit Provider Physician Assistant Medical
DX: I48.20 Chronic atrial fibrillation, unspecified (principal)
CPT/HCPCS: 36415; 80048; 85610

== ENCOUNTER → 2019-09-25 10:27 | Outpatient (CLI) | payer MEDICARE, OTHER, SELFPAY ==
[2019-08-19 09:08] VITALS: BMI 39.9
[2019-09-25 12:41] LABS: Absolute Lymphocyte Count 1.65 X10^3/uL (0.83-4.51); Absolute Neutrophil Count 3.5 X10^3/uL (2.0-7.7); Basophil# 0.02 X10^3/uL; Basophil% 0.3 % (0-1); Eosinophil# 0.11 X10^3/uL; Eosinophils% 1.9 % (0-5); Hematocrit 42.5 % (37-47); Lymphocyte # 1.65 X10^3/ul (4.0); Lymphocyte % 28.7 % (19-41); Mean Corp Hgb Conc 32.9 g/dL (32-36); Mean Corpuscular Hgb 31.9 pg (27.0-32.0); Mean Corpuscular Volume 96.8 fL (81-99); Mean Platelet Vol. 10.5 fl (6.2-12.0); Monocyte# 0.45 X10^3/uL; Monocyte% 7.8 % (0-10); NRBC Flagged by Analyzer 0 % (0-5); Neutrophil % 61.1 % (47-70); Platelet Count 162 K/mm3 (150-450); RBC Distribution Width CV 12.9 % (11.6-14.6); RBC Distribution Width SD 45.9 fl (35.1-43.9); Red Blood Count 4.39 M/mm3 (4.2-5.4); White Blood Count 5.7 K/mm3 (4.4-11.0)
[2019-09-25 13:05] LABS: ALB/GLOB Ratio 1.1 RATIO (0.9-2.4); AST(SGOT) 14 U/L (15-37); Alanine Aminotransfer ALT/SGPT 26 U/L (13-56); Albumin, Serum 3.5 g/dL (3.2-5.0); Alkaline Phosphatase 104 U/L (45-117); Anion Gap 4 (5-15); BUN 14 mg/dL (7-18); BUN/Creat Ratio 16.6 RATIO (10-20); Calcium,Total 8.7 mg/dL (8.5-10.1); Chloride 110 mmol/L (98-107); Creatinine, Serum 0.84 mg/dL (0.55-1.02); EST Glomerular Filtration Rate 72 mL/min (>60); Est Glom Filt Rate - Afr Amer 87 mL/min (>60); Globulin 3.3 g/dL (2.2-4.2); Glucose 142 mg/dL (74-106); Potassium 3.9 mmol/L (3.5-5.1); Protein, Total 6.8 g/dL (6.4-8.2); Sodium Level 141 mmol/L (136-145); Thyroid Stim Hormone (TSH) 0.93 uIU/mL (0.358-3.74)
[2019-09-25 13:08] LABS: Vitamin D,25 Hydroxy 37.7 ng/mL
== END ==
PROVIDERS: PCP Family Medicine Geriatric Medicine; Visit Provider Family Medicine Geriatric Medicine
DX: I10 Essential (primary) hypertension (principal); E55.9 Vitamin D deficiency, unspecified
CPT/HCPCS: 36415; 80053; 82306; 84443; 85025

== ENCOUNTER → 2020-01-02 10:36 | Outpatient (CLI) | payer MEDICARE, OTHER, SELFPAY ==
[2019-08-19 09:08] VITALS: BMI 39.9
--- NOTE | 2020-01-02 10:39 | RAD_ITS ---
STUDY: X-RAY CHEST REASON FOR EXAM: Female, 64 years old. SHORT OF BREATH, TIGHTNESS IN CHEST TECHNIQUE: Frontal and lateral views of the chest COMPARISON: 01 March 2019 FINDINGS: The lungs are clear and expanded. There is no demonstrated pleural abnormality. Normal size heart. Normal mediastinum and chan. Normal visualized pulmonary arteries. Normal visualized aortic arch and descending thoracic aorta. Right shoulder is surgically replaced. Otherwise osseous structures are intact. There is no demonstrated abnormality of the visualized soft tissue structures of the upper abdomen. Body habitus is severely elevated. RAD/Chest PA and Lateral IMPRESSION: Normal x-ray examination of the chest. Electronically Signed: Jerrod Jane, at 19:51 EST Tel , Service support ,
== END ==
PROVIDERS: PCP Family Medicine Geriatric Medicine; Referring Provider Family Medicine Geriatric Medicine; Visit Provider Family Medicine Geriatric Medicine
DX: R06.02 Shortness of breath (principal)
CPT/HCPCS: 71046

== ENCOUNTER → 2020-01-06 10:30 | Outpatient (CLI) | payer MEDICARE, OTHER, SELFPAY ==
[2019-08-19 09:08] VITALS: BMI 39.9
--- NOTE | 2020-01-06 10:31 | BI_ITS ---
MAMMOGRAPHY - BILATERAL SCREENING REASON FOR EXAM: Female, 64 years old. Routine annual screening examination. PERTINENT HISTORY: Non-contributory. TECHNIQUE: Digital bilateral breast valeri (3D mammographic acquisition) in the CC and MLO projections. 2-D mediolateral oblique (MLO) and craniocaudad (CC) views of both breasts were obtained. CAD: Full Field Digital Mammography with Computer Added Detection was performed. COMPARISON: Comparison is made with prior study dated 01/04/2019 and 12/29/2017. FINDINGS: Breast Composition: There are scattered areas of fibroglandular density. There are no dominant masses or suspicious calcifications. Stable small benign-appearing bilateral axillary lymph nodes. No other significant abnormalities are identified. There has been no significant change since the prior study. BI/SCREEN MAMM (CAD) W/VALERI BILAT IMPRESSION: Stable bilateral screening mammogram. Yearly follow-up mammogram recommended. (A) ASSESSMENT CATEGORY: BIRADS Category 2: Benign. A letter regarding these results will be sent to the patient by the facility within 30 days. Approximately 10% of breast cancers are not detected by mammography. A normal mammogram should not delay biopsy of a clinically suspicious abnormality. [id number] Electronically Signed: Tariq Kapoor, at 12:05 EST , Service support ,
== END ==
PROVIDERS: PCP Family Medicine Geriatric Medicine; Referring Provider Family Medicine Geriatric Medicine; Visit Provider Family Medicine Geriatric Medicine
DX: Z12.31 Encounter for screening mammogram for malignant neoplasm of breast (principal)
CPT/HCPCS: 77063; 77067

== ENCOUNTER → 2020-01-15 07:35 | Outpatient (CLI) | payer MEDICARE, OTHER, SELFPAY ==
[2019-08-19 09:08] VITALS: BMI 39.9
--- NOTE | 2020-01-15 07:37 | ECHOCS_ITS ---
Reason For Study: SOB Procedure This was a 2D Doppler, Color Flow transthoracic echocardiogram. The study was technically difficult. Contrast injection was performed. Exam performed in department. Left Ventricle Normal LV size. The estimated ejection fraction is 65 %. No evidence for diastolic dysfunction. No regional wall motion abnormalities noted. Right Ventricle Normal RV size. Normal systolic function. Atria Normal left atrium. Normal right atrium. No doppler evidence for ASD. Mitral Valve There is no mitral valve stenosis. No mitral valve insufficiency. Tricuspid Valve There is no tricuspid stenosis. No tricuspid valve insufficiency. Unable to estimate RV systolic pressure due to inadequate jet, pulmonary artery pressure probably normal. Aortic Valve Trisinus/trileaflet aortic valve. Aortic sclerosis, no stenosis. There is no aortic stenosis. Trivial aortic valve insufficiency. Pulmonic Valve There is no pulmonic valvular stenosis. No pulmonic valve insufficiency. Great Vessels Normal aortic root. Pericardium/Pleural No pericardial effusion. Medication 22 gauge I.V. with prn adaptor inserted into right arm. Diluted definity 3.5ml given slow IV push to enhance endocardial definition. MMode/2D Measurements & Calculations LVIDd: 4.8 cm IVSd: 0.82 cm LVOT diam: 2.0 cm LVIDs: 3.0 cm LVPWd: 0.88 cm RVDd: 3.6 cm FS: 37.0 % LVOT area: 3.1 cm2 Ao root diam: 2.6 cm LAV(MOD-bp): 73.1 ml LVAd ap4: 33.3 cm2 LAV(MOD-bp) Indexed: 35.0 ml/m2 EDV(MOD-sp4): 109.3 ml LAV(MOD-sp2): 62.4 ml EDV(sp4-el): 113.6 ml LAV(MOD-sp4): 73.8 ml LVAs ap4: 20.4 cm2 ESV(MOD-sp4): 50.8 ml ESV(sp4-el): 49.2 ml EF(MOD-sp4): 53.5 % EF(sp4-el): 56.7 % SV(MOD-sp4): 58.5 ml SV(sp4-el): 64.4 ml LA A4 area: 23.5 cm2 LA dimension(2D): 4.3 cm RA A4 area: 17.7 cm2 Time Measurements MV dec time: 0.23 sec Doppler Measurements & Calculations MV E max saroj: 94.1 cm/sec Ao V2 max: 184.0 cm/sec AI max saroj: 297.9 cm/sec Ao max P.5 mmHg AI max P.5 mmHg KRISHNA(V,D): 1.5 cm2 AI dec slope: 106.9 cm/sec2 AI P1/2t: 816.5 msec LV V1 max: 86.1 cm/sec PA V2 max: 108.6 cm/sec TR max saroj: 251.5 cm/sec LV V1 max P.0 mmHg TR max P.3 mmHg Interpretation Summary The estimated ejection fraction is 65 %. No evidence for diastolic dysfunction. Trivial aortic valve insufficiency. Ordering Physician: Ruddy Corral Referring Physician: Ruddy Corral Chi Performed By: Emily Pederson, CARLOS, RVT
--- NOTE | 2020-01-15 07:37 | CDU_ITS ---
Reason For Study: bruit Rt. Velocities/BP Lt. Velocities/BP Prox CCA 112.0/17.0 cm/sec. Prox CCA 90.0/17.6 cm/sec. Mid CCA 93.7/18.8 cm/sec. Mid CCA 96.1/20.0 cm/sec. Dist CCA 63.0/21.2 cm/sec. Dist CCA 66.7/20.0 cm/sec. Prox ICA 85.1/20.0 cm/sec. Prox ICA 49.5/20.0 cm/sec. Mid ICA 83.9/18.8 cm/sec. Mid ICA 96.1/20.0 cm/sec. Dist ICA 82.7/17.6 cm/sec. Dist ICA 92.5/23.7 cm/sec. Rt. ICA/CCA = .9. Lt. ICA/CCA = 1.0. Prox ECA 106.0/10.2 cm/sec. Prox ECA 87.5/16.3 cm/sec. Rt. Vert. 48.3/13.9 cm/sec. Lt. Vert. 33.5/11.4 cm/sec. Right Extracranial There is intimal thickening but no significant atherosclerotic plaque noted in the right common carotid artery. There is heterogeneous, irregular atherosclerotic plaque noted in the right internal carotid artery. There is heterogeneous, irregular atherosclerotic plaque noted in the right external carotid artery. Antegrade flow is noted in the right vertebral artery. Left Extracranial There is intimal thickening but no significant atherosclerotic plaque noted in the left common carotid artery. There is heterogeneous, irregular atherosclerotic plaque noted in the left internal carotid artery. There is intimal thickening but no significant atherosclerotic plaque noted in the left external carotid artery. Antegrade flow is noted in the left vertebral artery. Procedure Carotid Duplex [id number]. This is a Carotid Duplex examination using B-mode, color flow and specral Doppler. The exam was diagnostic. Exam performed in department. Interpretation Summary Irregular calcific plague at the proximal right internal carotid with <50% stenosis <50% stenosis right external carotid Irregular calcific plague proximal left internal carotid with <50% stenosis. <50% stenosis left external carotid Patent, antegrade vertebrals bilaterally Ordering Physician: Ruddy Corral Performed By: Justin Castellon RVT
== END ==
PROVIDERS: PCP Family Medicine Geriatric Medicine; Referring Provider Family Medicine Geriatric Medicine; Visit Provider Family Medicine Geriatric Medicine
DX: R09.89 Other specified symptoms and signs involving the circulatory and respiratory systems (principal); R06.02 Shortness of breath
CPT/HCPCS: 93306; 93880; Q9957; A4216; C8929

== ENCOUNTER 2020-02-09 10:15 | Outpatient (RCR) | payer MEDICARE, OTHER, SELFPAY ==
[2019-08-19 09:08] VITALS: BMI 39.9
--- NOTE | 2020-02-09 11:19 | HP.PTEVAL_ITS ---
Patient's Visit Information IVON WISEMAN is a 64 year old F referred to Physical Therapy by Dr. Montserrat Elias MD with a diagnosis of BACK AND LEG PAIN. Date of Evaluation: 02/09/20 Physical Therapist: Betsy Harper PT, Cert MDT - Visit Plan Frequency: 2-3x /Week Duration: 4-6 Weeks Plan: AQUATIC THERAPY FOR PAIN RELIEF, POSTURE CORRECTION/STRENGTHENING, INSTRUCTION IN APPROPRIATE BODY MECHANICS AND ACTIVITY MODIFICATIONS. DLS STARTING WITH A NEUTRAL SPINE PROGRESSING ROM TOLERATED. JULISSA LE ROM, STRETCHING AND STRENGTHENING. HEP INSTRUCTION. - Subjective Work/Leisure: RETIRED. Disability: ON DISABILITY SINCE 2007 FOR FIBROMYALGIA, DDD, COPD, ARTHRITIS AND CHF. Present symptoms: PATIENT REPORTS SHE IS HERE FOR LOW BACK PAIN. PATIENT DENIES JULISSA LE RADIATING SX'S. Present since: YEARS. Pain Scale: WORST 9/10, LEAST 1/10. Currently: 05/05. Commenced as a result of: DDD. Symptoms at onset: LOW BACK. Worse: STANDING, LOADING AND UNLOADING THE [employer] RANGER, WALKING. Better: SITTING, LYING DOWN, PILLS. Disturbed sleep: YES. Previous history/Previous treatment: NO BACK SURGERY. NO BACK PT. NO CHIROPRACTOR. HAS HAD AT LEAST 4 STEVEN'S WITH THE MOST RECENT BEING ABOUT 3 MONTHS AGO. REPORTS THE INJECTIONS DO HELP FOR AWHILE. NORCO. Coughing/sneezing/straining: NEGATIVE. Gait: USES A CANE. I AM UNSTABLE AND I TEND TO WOBBLE. DISTANCE AND TIME LIMITED DUE TO BACK PAIN. Difficulty initiating urinatin: NO. Accidents: NO. Unexplained weight loss: NO. Imaging: NONE RECENT. PMH: CHF, DOPD, DDD, ARTHRITIS, FIBROMYALGIA, HTN, HIGH CHOLESTEROL, B TKR'S. - Objective Sitting/Standing Posture: POOR. INCREASED KYPHOSIS. INCREASED TRUNK FLEXION. Lordosis: REDUCED. Lateral shift: NO. Relevant shift: N/A. Active Correction of posture: WORSE. Other Observations: INDEP SLOW ANTALGIC GAIT INTO PT USING A STRAIGHT CANE AND NO LOB. RIGHT LE TOEING OUT. PATIENT IS UNABLE TO TRANSFER FROM SIT TO STAND WITHOUT UE ASSIST. Motor deficit: JULISSA LE'S GROSSLY 4-5/5 WITH MMT'ING. Sensory deficit: JULISSA LE LIGHT TOUCH SENSATION APPEARS INTACT AND SYMMTRICAL - FEET NT. ROM deficit: TIGHT JULISSA LE HIP FLEXORS, HS'S AND GASTROC SOLEUS COMPLEX'S. Reflexes: NT. Dural Signs: NEGATIVE. Lumbar mvmt loss: flex - MOD. ext - STEVEN. R SG - STEVEN. L SG - STEVEN. PATIENT C/O INCREASED LBP WITH LUMBAR ROM TESTING ALL PLANES. Core strength: POOR. Palpation: TENDERNESS WITH LIGHT PALPATION OF JULISSA LUMBAR REGIONS. TREATMENT: NEUROMUSCULAR REEDUCATION - RETRAINING OF MVMT AND POSTURE FOR SITTING, LYING AND STANDING ACTIVITIES. - Goals Goal 1:: DECREASE C/O BACK AND LEG PAIN Goal Time Frame: 4-6 Weeks Goal 2:: IMPROVE PERSONAL CARE, LIFTING, WALKING, SITTING, STANDING, SLEEP, SOCIAL LIFE, TRAVEL AND HOMEMAKING FUNCTION Goal Time Frame: 4-6 Weeks Goal 3:: INSTRUCT IN PROPHYLAXIS Goal Time Frame: 4-6 Weeks - Anticipated Interventions Patient/Client Instruction: Educate patient on: Condition, Plan of Care, Risk Factors, Benefits of Fitness Program For the Purpose of:: To improve self management Therapeutic Exercise to Include: Strength training, Body mechanics, Postural training, Flexibilty training, Gait and locomotor training, Neuromotor development, In an aquatic setting, Dynamic Lumbar Stabilization For the Purpose of:: To decrease pain, To increase ROM, To improve muscle perfo rmance and motor function, To increase tolerance to activity/condition/position, To improve ability of physical actions for home/community/work/leisure, To improve gait and locomotor functions Thank you for the opportunity to evaluate your patient. For Medicare and Medicare HMO plans, please review the plan of care and approve it. It will need to be FAXED BACK to us at [phone] for Medicare purposes. For Medicare only, by signing this I certify the plan of care. Please let me know if there are questions or concerns regarding this plan of care. Physician Sig nature: Date:
--- NOTE | 2020-04-19 14:56 | HP.PT.NRP ---
IVON WISEMAN was seen in my office for initial evaluation on 02/09/20. The following Plan of Care was established for this patient: Initial Frequency: 2-3x /Week Initial Duration: 4-6 Weeks Patient/Client Instruction: Educate patient on: Condition, Plan of Care, Risk Factors, Benefits of Fitness Program For the Purpose of:: To improve self management Therapeutic Exercise to Include: Strength training, Body mechanics, Postural training, Flexibilty training, Gait and locomotor training, Neuromotor development, In an aquatic setting, Dynamic Lumbar Stabilization For the Purpose of:: To decrease pain, To increase ROM, To improve muscle performance and motor function, To increase tolerance to activity/condition/position, To improve ability of physical actions for home/community/work/leisure, To improve gait and locomotor functions This patient was last seen in our office 02/09/20. Pertinent comments regarding their Physical therapy will appear below: This patient has not returned to Physical Therapy and is appropriate to return to MD for further follow-up as needed. At this point I will be discontinuing this patient from physical therapy. I would be happy to see this patient again in the future if found appropriate by the physician. Thank you! Betsy Harper, PT, Cert MDT
== END 2020-02-09 19:00 | disposition home or self-care (01) ==
LOC: PT 10:15
PROVIDERS: PCP Family Medicine Geriatric Medicine; Referring Provider Anesthesiology Pain Medicine; Visit Provider Anesthesiology Pain Medicine
DX: M54.9 Dorsalgia, unspecified (principal); M79.609 Pain in unspecified limb
CPT/HCPCS: 97112; 97162

== ENCOUNTER → 2020-02-18 10:10 | Outpatient (CLI) | payer MEDICARE, OTHER, SELFPAY ==
[2019-08-19 09:08] VITALS: BMI 39.9
[2020-02-18 11:40] LABS: Amphetamine Urine VISTA NEGATIVE (<1000 ng/mL); Barbiturate Urine VISTA NEGATIVE (< 200 ng/mL); Benzodiazepine Urine VISTA NEGATIVE (< 200 ng/mL); Cocaine Urine VISTA NEGATIVE (< 300 ng/mL); Ecstacy Urine VISTA POSITIVE (< 500 ng/mL); Methadone Urine VISTA NEGATIVE (< 300 ng/mL); PCP Urine VISTA NEGATIVE (< 25 ng/mL); THC Urine VISTA NEGATIVE (< 50 ng/mL); Vista UDS pH Range 5
== END ==
PROVIDERS: PCP Family Medicine Geriatric Medicine; Referring Provider Anesthesiology Pain Medicine; Visit Provider Anesthesiology Pain Medicine
DX: F11.20 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, 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 (principal)
CPT/HCPCS: 80307

== ENCOUNTER → 2020-03-25 11:18 | Outpatient (CLI) | payer MEDICARE, OTHER, SELFPAY ==
--- NOTE | 2020-03-25 11:21 | RAD_ITS ---
STUDY: X-RAY - LEFT HAND, ATTENTION THUMB. REASON FOR EXAM: Female, 64 years old. STOVED THUMB 5 DAYS AGO -- ATTN MCP JOINT TECHNIQUE: 3 view(s) of the finger were obtained. COMPARISON: None. FINDINGS: Normal metacarpal head. Normal metacarpophalangeal joint. Normal proximal phalanx. Normal middle phalanx. Normal distal phalanx. Normal proximal interphalangeal joint. Normal distal interphalangeal joint. RAD/Finger(s) Min 2 Views IMPRESSION: Normal x-ray examination of the finger. Electronically Signed: Tariq Kapoor MD at 15:04 EST , Service support ,
[2020-03-25 12:31] LABS: Absolute Lymphocyte Count 1.49 X10^3/uL (0.83-4.51); Absolute Neutrophil Count 4.1 X10^3/uL (2.0-7.7); Basophil# 0.03 X10^3/uL; Basophil% 0.5 % (0-1); Eosinophil# 0.07 X10^3/uL; Eosinophils% 1.1 % (0-5); Hematocrit 39.7 % (37-47); Hemoglobin 13.2 g/dL (12.0-15.0); Lymphocyte # 1.49 X10^3/ul (4.0); Lymphocyte % 23.6 % (19-41); Mean Corp Hgb Conc 33.2 g/dL (32-36); Mean Corpuscular Volume 96.4 fL (81-99); Mean Platelet Vol. 10.5 fl (6.2-12.0); Monocyte# 0.56 X10^3/uL; Monocyte% 8.9 % (0-10); NRBC Flagged by Analyzer 0 % (0-5); Neutrophil # 4.13 X10^3/uL (2.7-7.7); Neutrophil % 65.4 % (47-70); Platelet Count 181 K/mm3 (150-450); RBC Distribution Width CV 13.2 % (11.6-14.6); RBC Distribution Width SD 46.5 fl (35.1-43.9); Red Blood Count 4.12 M/mm3 (4.2-5.4); White Blood Count 6.3 K/mm3 (4.4-11.0)
[2020-03-25 13:16] LABS: Vitamin D,25 Hydroxy 32.5 ng/mL
[2020-03-25 13:25] LABS: ALB/GLOB Ratio 1.1 RATIO (0.9-2.4); AST(SGOT) 14 U/L (15-37); Alanine Aminotransfer ALT/SGPT 29 U/L (13-56); Albumin, Serum 3.5 g/dL (3.2-5.0); Alkaline Phosphatase 96 U/L (45-117); Anion Gap 6 (5-15); BUN 22 mg/dL (7-18); BUN/Creat Ratio 24.1 RATIO (10-20); Calcium,Total 8.7 mg/dL (8.5-10.1); Chloride 107 mmol/L (98-107); Creatinine, Serum 0.91 mg/dL (0.55-1.02); EST Glomerular Filtration Rate 66 mL/min (>60); Est Glom Filt Rate - Afr Amer 79 mL/min (>60); Globulin 3.3 g/dL (2.2-4.2); Glucose 125 mg/dL (74-106); Potassium 4.4 mmol/L (3.5-5.1); Protein, Total 6.8 g/dL (6.4-8.2); Sodium Level 140 mmol/L (136-145); Thyroid Stim Hormone (TSH) 0.84 uIU/mL (0.358-3.74)
== END ==
PROVIDERS: PCP Family Medicine Geriatric Medicine; Referring Provider Family Medicine Geriatric Medicine; Visit Provider Family Medicine Geriatric Medicine
DX: M79.609 Pain in unspecified limb (principal); E55.9 Vitamin D deficiency, unspecified; I10 Essential (primary) hypertension
CPT/HCPCS: 36415; 73140; 80053; 82306; 84443; 85025

== ENCOUNTER → 2020-06-24 09:46 | Outpatient (CLI) | payer MEDICARE, OTHER, SELFPAY ==
[2020-05-20 09:59] VITALS: BMI 42.7
[2020-06-24 12:32] LABS: Absolute Lymphocyte Count 1.81 X10^3/uL (0.83-4.51); Absolute Neutrophil Count 4.1 X10^3/uL (2.0-7.7); Basophil# 0.03 X10^3/uL; Basophil% 0.5 % (0-1); Eosinophil# 0.09 X10^3/uL; Eosinophils% 1.4 % (0-5); Hematocrit 41.8 % (37-47); Hemoglobin 13.2 g/dL (12.0-15.0); Lymphocyte # 1.81 X10^3/ul (0.83-4.51); Lymphocyte % 27.3 % (19-41); Mean Corp Hgb Conc 31.6 g/dL (32-36); Mean Corpuscular Hgb 31.3 pg (27.0-32.0); Mean Corpuscular Volume 99.1 fL (81-99); Mean Platelet Vol. 10.5 fl (6.2-12.0); Monocyte# 0.56 X10^3/uL; Monocyte% 8.5 % (0-10); NRBC Flagged by Analyzer 0 % (0-5); Neutrophil # 4.12 X10^3/uL (2.7-7.7); Neutrophil % 62.1 % (47-70); Platelet Count 184 K/mm3 (150-450); RBC Distribution Width CV 13.5 % (11.6-14.6); Red Blood Count 4.22 M/mm3 (4.2-5.4); White Blood Count 6.6 K/mm3 (4.4-11.0)
[2020-06-24 12:58] LABS: ALB/GLOB Ratio 1.1 RATIO (0.9-2.4); AST(SGOT) 15 U/L (15-37); Alanine Aminotransfer ALT/SGPT 31 U/L (13-56); Albumin, Serum 3.5 g/dL (3.2-5.0); Alkaline Phosphatase 93 U/L (45-117); Anion Gap 5 (5-15); BUN 19 mg/dL (7-18); BUN/Creat Ratio 20.7 RATIO (10-20); Chloride 109 mmol/L (98-107); Creatinine, Serum 0.92 mg/dL (0.55-1.02); EST Glomerular Filtration Rate 65 mL/min (>60); Est Glom Filt Rate - Afr Amer 79 mL/min (>60); Globulin 3.3 g/dL (2.2-4.2); Glucose 113 mg/dL (74-106); Protein, Total 6.8 g/dL (6.4-8.2); Sodium Level 141 mmol/L (136-145); Thyroid Stim Hormone (TSH) 1.16 uIU/mL (0.358-3.74)
[2020-06-24 13:02] LABS: BNP,B-Type NATRIURETIC PEPTIDE 104.8 pg/mL (0-100)
== END ==
PROVIDERS: PCP Family Medicine Geriatric Medicine; Visit Provider Family Medicine Geriatric Medicine
DX: R06.02 Shortness of breath (principal); R06.89 Other abnormalities of breathing; R53.83 Other fatigue
CPT/HCPCS: 36415; 80053; 83880; 84443; 85025; 86769; 87077; 87086; 87088; 87186

== ENCOUNTER → 2020-07-07 13:46 | Outpatient (CLI) | payer MEDICARE, OTHER, SELFPAY ==
[2020-05-20 09:59] VITALS: BMI 42.7
[2020-07-07 15:02] LABS: Amphetamine Urine VISTA NEGATIVE (<1000 ng/mL); Barbiturate Urine VISTA NEGATIVE (< 200 ng/mL); Benzodiazepine Urine VISTA NEGATIVE (< 200 ng/mL); Cocaine Urine VISTA NEGATIVE (< 300 ng/mL); Ecstacy Urine VISTA NEGATIVE (< 500 ng/mL); Methadone Urine VISTA NEGATIVE (< 300 ng/mL); PCP Urine VISTA NEGATIVE (< 25 ng/mL); THC Urine VISTA NEGATIVE (< 50 ng/mL); Vista UDS pH Range 5
== END ==
PROVIDERS: PCP Family Medicine Geriatric Medicine; Referring Provider Anesthesiology Pain Medicine; Visit Provider Anesthesiology Pain Medicine
DX: F11.20 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, 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 (principal)
CPT/HCPCS: 80307

== ENCOUNTER → 2020-07-29 14:56 | Outpatient (CLI) | payer MEDICARE, OTHER, SELFPAY ==
[2020-05-20 09:59] VITALS: BMI 42.7
[2020-07-29 20:15] LABS: M R Staph aureus DNA By PCR Negative (Negative); Probe Check PASS; Specimen Processing Control PASS; Staph aureus DNA By PCR NEGATIVE (Negative)
== END ==
PROVIDERS: PCP Family Medicine Geriatric Medicine; Visit Provider Family Medicine Geriatric Medicine
DX: T07.XXXA Unspecified multiple injuries, initial encounter (principal); B95.62 Methicillin resistant Staphylococcus aureus infection as the cause of diseases classified elsewhere
CPT/HCPCS: 36415; 87070; 87086; 87205; 87640

== ENCOUNTER → 2020-09-27 10:23 | Outpatient (CLI) | payer MEDICARE, OTHER, SELFPAY ==
[2020-05-20 09:59] VITALS: BMI 42.7
[2020-09-27 11:05] LABS: Absolute Lymphocyte Count 1.58 X10^3/uL (0.83-4.51); Absolute Neutrophil Count 4.1 X10^3/uL (2.0-7.7); Basophil# 0.03 X10^3/uL; Basophil% 0.5 % (0-1); Eosinophil# 0.19 X10^3/uL; Eosinophils% 2.9 % (0-5); Hematocrit 40.4 % (37-47); Hemoglobin 13.1 g/dL (12.0-15.0); Lymphocyte # 1.58 X10^3/ul (0.83-4.51); Lymphocyte % 24.3 % (19-41); Mean Corp Hgb Conc 32.4 g/dL (32-36); Mean Corpuscular Hgb 30.8 pg (27.0-32.0); Mean Corpuscular Volume 95.1 fL (81-99); Mean Platelet Vol. 10.5 fl (6.2-12.0); Monocyte# 0.57 X10^3/uL; Monocyte% 8.8 % (0-10); NRBC Flagged by Analyzer 0 % (0-5); Neutrophil # 4.12 X10^3/uL (2.7-7.7); Neutrophil % 63.3 % (47-70); Platelet Count 169 K/mm3 (150-450); RBC Distribution Width CV 13.2 % (11.6-14.6); RBC Distribution Width SD 46.2 fl (35.1-43.9); Red Blood Count 4.25 M/mm3 (4.2-5.4); White Blood Count 6.5 K/mm3 (4.4-11.0)
[2020-09-27 11:44] LABS: AST(SGOT) 20 U/L (15-37); Alanine Aminotransfer ALT/SGPT 26 U/L (13-56); Albumin, Serum 3.6 g/dL (3.2-5.0); Alkaline Phosphatase 118 U/L (45-117); Anion Gap 5 (5-15); BUN 13 mg/dL (7-18); BUN/Creat Ratio 16.1 RATIO (10-20); Calcium,Total 9.1 mg/dL (8.5-10.1); Chloride 108 mmol/L (98-107); Creatinine, Serum 0.81 mg/dL (0.55-1.02); EST Glomerular Filtration Rate 75 mL/min (>60); Est Glom Filt Rate - Afr Amer 91 mL/min (>60); Globulin 3.5 g/dL (2.2-4.2); Glucose 123 mg/dL (74-106); Potassium 4.1 mmol/L (3.5-5.1); Protein, Total 7.1 g/dL (6.4-8.2); Sodium Level 139 mmol/L (136-145); Thyroid Stim Hormone (TSH) 1.13 uIU/mL (0.358-3.74)
== END ==
PROVIDERS: PCP Family Medicine Geriatric Medicine; Visit Provider Family Medicine Geriatric Medicine
DX: E55.9 Vitamin D deficiency, unspecified (principal); I10 Essential (primary) hypertension
CPT/HCPCS: 36415; 80053; 82306; 84443; 85025

== ENCOUNTER → 2020-12-20 10:21 | Outpatient (CLI) | payer MEDICARE, OTHER, SELFPAY ==
[2020-05-20 09:59] VITALS: BMI 42.7
== END ==
PROVIDERS: PCP Family Medicine Geriatric Medicine; Referring Provider Family Medicine Geriatric Medicine; Visit Provider Family Medicine Geriatric Medicine
DX: R06.02 Shortness of breath (principal); R68.83 Chills (without fever)
CPT/HCPCS: 87635; 87804; 87807; C9803; U0005; U0003

== ENCOUNTER 2021-03-28 09:32 | Outpatient (CLI) | payer MEDICARE, OTHER, SELFPAY ==
[2021-03-28 10:20] LABS: Absolute Lymphocyte Count 1.97 X10^3/uL (0.83-4.51); Absolute Neutrophil Count 2.7 X10^3/uL (2.0-7.7); Basophil# 0.04 X10^3/uL; Basophil% 0.7 % (0-1); Eosinophil# 0.12 X10^3/uL; Eosinophils% 2.2 % (0-5); Hematocrit 38.6 % (37-47); Hemoglobin 12.9 g/dL (12.0-15.0); Lymphocyte # 1.97 X10^3/ul (0.83-4.51); Lymphocyte % 36.4 % (19-41); Mean Corp Hgb Conc 33.4 g/dL (32-36); Mean Corpuscular Hgb 32.3 pg (27.0-32.0); Mean Corpuscular Volume 96.7 fL (81-99); Mean Platelet Vol. 9.9 fl (6.2-12.0); Monocyte# 0.51 X10^3/uL; Monocyte% 9.4 % (0-10); NRBC Flagged by Analyzer 0 % (0-5); Neutrophil # 2.74 X10^3/uL (2.7-7.7); Neutrophil % 50.7 % (47-70); Platelet Count 201 K/mm3 (150-450); RBC Distribution Width CV 12.9 % (11.6-14.6); Red Blood Count 3.99 M/mm3 (4.2-5.4); White Blood Count 5.4 K/mm3 (4.4-11.0)
[2021-03-28 10:58] LABS: ALB/GLOB Ratio 0.9 RATIO (0.9-2.4); AST(SGOT) 18 U/L (15-37); Alanine Aminotransfer ALT/SGPT 27 U/L (13-56); Albumin, Serum 3.3 g/dL (3.2-5.0); Alkaline Phosphatase 95 U/L (45-117); Anion Gap 6 (5-15); BUN 21 mg/dL (7-18); BUN/Creat Ratio 21.4 RATIO (10-20); Calcium,Total 8.6 mg/dL (8.5-10.1); Chloride 111 mmol/L (98-107); Creatinine, Serum 0.98 mg/dL (0.55-1.02); EST Glomerular Filtration Rate 60 mL/min (>60); Est Glom Filt Rate - Afr Amer 73 mL/min (>60); Globulin 3.6 g/dL (2.2-4.2); Glucose 124 mg/dL (74-106); Protein, Total 6.9 g/dL (6.4-8.2); Sodium Level 141 mmol/L (136-145); Thyroid Stim Hormone (TSH) 1.07 uIU/mL (0.358-3.74)
== END 2021-03-28 23:59 | disposition short-term general hospital (02) ==
LOC: POLAB3 09:39
PROVIDERS: PCP Family Medicine Geriatric Medicine; Visit Provider Family Medicine Geriatric Medicine
DX: E11.9 Type 2 diabetes mellitus without complications (principal); I10 Essential (primary) hypertension
CPT/HCPCS: 36415; 80053; 84443; 85025

== ENCOUNTER 2021-05-02 11:00 | Outpatient (RCR) | payer MEDICARE, OTHER, SELFPAY ==
--- NOTE | 2021-03-09 16:39 | HP.OTEVAL_ITS ---
Patient's Visit Information IVON WISEMAN is a 65 year old F, referred to Occupational Therapy by JULIAN PRITCHARD, with a diagnosis of left unilateral primary osteoarthritis of 1st cmc. Date of Evaluation: 03/09/21 Occupational Therapist: Magui Solorzano, OTR/Chang, CHT - Subjective This 65 year old female was seen for OT eval with dx of left unilateral primary osteoarthritis of 1st carpometacarpal joint. Pt states she struggled with pain since -oct 2020- pain continued to get worse. Pt had left carpometacarpal ligament reconstruction tendon interposition - DeQuervain's tenosynovectomy- thumb adductor release on 02/17/21. pt 2 weeks and 6 days s/p. pt is having increase difficulty with ADls due to restrictions from sx. pt would like to recover and return to her PLOF. - ROM Wrist: right 65/60 left 40/20 CMC: right 20 left MP: right 45 IP: right 45 Radial Abduction: right 30 - Strength Corporate Operations Compliance Manager: right 40# left NT Lateral Pinch: right 8# left NT Tripod Pinch: right 4# left NT - Goals Goal:100% adherence to protocol: Yes Comment: Dr. Ramos's CMC arthroplasty Protocol Goal:Daily scar massage when approriate: Yes Goal:ROM equal to unaffected hand: Yes Goal:Corporate Operations Compliance Manager/Pinch strength at least 75% of unaffected hand: Yes Goal:No pain with affected hand use: Yes Goal:Full use of affected hand in daily activities including: Yes Comment: use of orthosis Other Goal: Pt will demo understanding of using orthosis at all times for 6 weeks- and transition to comfort cool thumb brace following and use orthosis at night- by end of 2nd session. - Rehabilitation General Assessment: Pt arrives 2 weeks and 6 days s/p from a left car pometacarpal ligament reconstruction tendon interposition - DeQuervain's tenosynovectomy- thumb adductor release on 02/17/21. pt limited with use of left hand/UE with ADLs and IADls. pt demo need for skilled OT services 1x week for 6 weeks to recover pt to PLOF. Today therapist adj. orthosis to increase comfort- ed. pt on Dr. Ramos's CMC arthroplasty protocol. ed, pt to initiate scar mtg. and continue with tendon glides for fingers and IP flexion while in orthosis- pt demo understanding and agree to POC. Rehabilitation Potential: Excellent - Anticipated Interventions A/AAROM/PROM, Strengthening, Scar Care, Triggerpoint Release, Desensitization, Modalities, Orthoses, Joint Protection/Energy Conservation, Ergonomic Education, Fine Motor Coord/Yan, Education re assistive Equipment, Education re Diagnosis, Home Program - Visit Plan Frequency: 1-2x /Week Duration: 6 Weeks General Plan: Dr. Ramos CMC arthroplasty. Week 2: exercise- AROM performed for digits and thumb IP joint only- initiate scar mtg. Week 4: Begin AROM exercises for wrist thumb CMC- joint- cont. scar mtg/edema control (modalities as indicated for pain and edema. Week 6: splint D/C and issue comfort cool fitted splint if needed- discontinue splint by 8 weeks post-operative except may wear during heavy activates pm. Exercise: start gentle strengthening(thera- putty), progress as tolerated. Progress to wrist strengthening and heavier prehension tasks at 8 weeks post-operative. Avoid forceful extension of thumb. Expectations: Most patients are treated with a Home Program and checked after each MD visit for program progression 2x weekly for 4-6 weeks for symptomatic patients or those returning to heavier work demands. 2 months to resume normal activities, 3 months for strenuous. 3-6 months to reach optimum results. slight decrease in pinch and test preparer strength. generally, gain 70% of strength and motion of unoperated hand. TEXT: Thank you for the opportunity to evaluate your patient. For Medicare and Medicare HMO plans, please review the plan of care and approve it. It will need to be FAXED BACK to us at [phone] for Medicare purposes. Please let me know if there are questions or concerns regarding this plan of care. Physician Signature: Date:
--- NOTE | 2021-03-09 16:41 | HP.OTEVAL ---
Patient's Visit Information IVON WISEMAN is a 65 year old F, referred to Occupational Therapy by JULIAN PRITCHARD, with a diagnosis of left unilateral primary osteoarthritis of 1st cmc. Date of Evaluation: 03/09/21 Occupational Therapist: Magui Solorzano, YONYR/Chang, CHT - Subjective This 65 year old female was seen for OT eval with dx of left unilateral primary osteoarthritis of 1st carpometacarpal joint. Pt states she struggled with pain since -oct 2020- pain continued to get worse. Pt had left carpometacarpal ligament reconstruction tendon interposition - DeQuervain's tenosynovectomy- thumb adductor release on 02/17/21. pt 2 weeks and 6 days s/p. pt is having increase difficulty with ADls due to restrictions from sx. pt would like to recover and return to her PLOF. - ROM Wrist: right 65/60 left 40/20 CMC: right 20 left MP: right 45 IP: right 45 Radial Abduction: right 30 - Strength Project Reservoir Engineer: right 40# left NT Lateral Pinch: right 8# left NT Tripod Pinch: right 4# left NT - Quick DASH-Disab of Arm,Shoulder& Hand Quick DASH Score: 59.0900 - Goals Goal:100% adherence to protocol: Yes Comment: Dr. Ramos's CMC arthroplasty Protocol Goal:Daily scar massage when approriate: Yes Goal:ROM equal to unaffected hand: Yes Goal:Project Reservoir Engineer/Pinch strength at least 75% of unaffected hand: Yes Goal:No pain with affected hand use: Yes Goal:Full use of affected hand in daily activities including: Yes Comment: use of orthosis Other Goal: Pt will demo understanding of using orthosis at all times for 6 weeks- and transition to comfort cool thumb brace following and use orthosis at night- by end of 2nd session. - Rehabilitation General Assessment: Pt arrives 2 weeks and 6 days s/p from a left carpometacarpal ligament reconstruction tendon interposition - DeQuervain's tenosynovectomy- thumb adductor release on 02/17/21. pt limited with use of left hand/UE with ADLs and IADls. pt demo need for skilled OT services 1x week for 6 weeks to recover pt to PLOF. Today therapist adj. orthosis to increase comfort- ed. pt on Dr. Ramos's CMC arthroplasty protocol. ed, pt to initiate scar mtg. and continue with tendon glides for fingers and IP flexion while in orthosis- pt demo understanding and agree to POC. Rehabilitation Potential: Excellent - Anticipated Interventions A/AAROM/PROM, Strengthening, Scar Care, Triggerpoint Release, Desensitization, Modalities, Orthoses, Joint Protection/Energy Conservation, Ergonomic Education, Fine Motor Coord/Yan, Education re assistive Equipment, Education re Diagnosis, Home Program - Visit Plan Frequency: 1-2x /Week Duration: 6 Weeks General Plan: Dr. Ramos CMC arthroplasty. Week 2: exercise- AROM performed for digits and thumb IP joint only- initiate scar mtg. Week 4: Begin AROM exercises for wrist thumb CMC- joint- cont. scar mtg/edema control (modalities as indicated for pain and edema. Week 6: splint D/C and issue comfort cool fitted splint if needed- discontinue splint by 8 weeks post-operative except may wear during heavy activates pm. Exercise: start gentle strengthening(thera-putty), progress as tolerated. Progress to wrist strengthening and heavier prehension tasks at 8 weeks post-operative. Avoid forceful extension of thumb. Expectations: Most patients are treated with a Home Program and checked after each MD visit for program progression 2x weekly for 4-6 weeks for symptomatic patients or those returning to heavier work demands. 2 months to resume normal activities, 3 months for strenuous. 3-6 months to reach optimum results. slight decrease in pinch and surgical assist strength. generally, gain 70% of strength and motion of unoperated hand. TEXT: Thank you for the opportunity to evaluate your patient. For Medicare and Medicare HMO plans, please review the plan of care and approve it. It will need to be FAXED BACK to us at [phone] for Medicare purposes. Please let me know if there are questions or concerns regarding this plan of care. Physician Signature: Date:
--- NOTE | 2021-05-02 12:07 | HP.OTDCSUM_ITS ---
It has been my pleasure to treat IVON WISEMAN under orders from JULIAN PRITCHARD, for the diagnosis of left unilateral primary osteoarthritis of 1st cmc for a total of 4 visit(s). Please see the following information for a summary of their discharge status. % Improvement: 80 Objective/Function: left wrist 55/50 increase from 40/20. left CMC 20. left MP 30. Left IP 55. left director multiple [facility] strength 35# left is 40#. left lateral pinch 3# right is 8#. left tripod pinch 2# right is 4#. pt state she will continues with her HEP to improve strength and gain thumb stability- pt agrees to D/C Patient Goals: Use Hand/Wrist/Arm Normally Again Goal:100% adherence to protocol: Yes Goal:Daily scar massage when approriate: Yes Goal:ROM equal to unaffected hand: Yes Goal:Weed Science Research Technician/Pinch strength at least 75% of unaffected hand: Yes Goal:No pain with affected hand use: Yes Goal:Full use of affected hand in daily activities including: Yes Other Goal: Pt will demo understanding of using orthosis at all times for 6 weeks- and transition to comfort cool thumb brace following and use orthosis at night- by end of 2nd session. Plan: cont BTE add more tools and resistance Discharge Comments: pt was seen for 4 OT visits due to 6 cancellations- pt has made great gains in her ROM and has returned to using her left non dominant hand for ADLs and IADLS - pt will cont. with her HEP for thumb stabilization and pinch strength If there are questions or concerns regarding this patient's occupational therap y, please fell free to call me at [phone]. Thank you for the referral of this patient. Sincerely, Magui Solorzano, OTR/L, CHT
== END 2021-05-02 19:00 | disposition home or self-care (01) ==
LOC: OT 11:00
PROVIDERS: PCP Family Medicine Geriatric Medicine
DX: M18.12 Unilateral primary osteoarthritis of first carpometacarpal joint, left hand (principal)
CPT/HCPCS: 97110; 97165; 97166; 97530

== ENCOUNTER → 2021-07-12 | Outpatient (CLI) | payer MEDICARE, OTHER, SELFPAY ==
[2021-07-12 13:19] LABS: Amphetamine Urine VISTA NEGATIVE (<1000 ng/mL); Barbiturate Urine VISTA NEGATIVE (< 200 ng/mL); Benzodiazepine Urine VISTA NEGATIVE (< 200 ng/mL); Cocaine Urine VISTA NEGATIVE (< 300 ng/mL); Ecstacy Urine VISTA POSITIVE (< 500 ng/mL); Methadone Urine VISTA NEGATIVE (< 300 ng/mL); PCP Urine VISTA NEGATIVE (< 25 ng/mL); THC Urine VISTA NEGATIVE (< 50 ng/mL); Vista UDS pH Range 5
== END | disposition home or self-care (01) ==
LOC: LAB 11:33
PROVIDERS: PCP Family Medicine Geriatric Medicine; Visit Provider Anesthesiology Pain Medicine
DX: F11.20 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, 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 (principal)
CPT/HCPCS: 80307

== ENCOUNTER → 2021-11-02 | Outpatient (CLI) | payer MEDICARE, OTHER, SELFPAY ==
--- NOTE | 2021-11-02 08:42 | BI_ITS ---
MAMMOGRAPHY - BILATERAL SCREENING REASON FOR EXAM: Female, 65 years old. Routine annual screening examination. PERTINENT HISTORY: Non-contributory. Resolving ecchymosis along the lateral aspect of the right breast. TECHNIQUE: Digital bilateral breast valeri (3D mammographic acquisition) in the CC and MLO projections. 2-D mediolateral oblique (MLO) and craniocaudad (CC) views of both breasts were obtained. CAD: Full Field Digital Mammography with Computer Added Detection was performed. COMPARISON: Comparison is made with prior study dated 01/06/2020 and 01/04/2019. FINDINGS: Breast Composition: There are scattered areas of fibroglandular density. There are no dominant masses or suspicious calcifications. Stable small benign appearing bilateral axillary lymph nodes. No other significant abnormalities are identified. There has been no significant change since the prior study. BI/SCRN MAMM (CAD)W/VALERI BILAT IMPRESSION: Stable bilateral screening mammogram. Yearly follow-up mammogram recommended. (A) ASSESSMENT CATEGORY: BIRADS Category 2: Benign. A letter regarding these results will be sent to the patient by the facility within 30 days. Approximately 10% of breast cancers are not detected by mammography. A normal mammogram should not delay biopsy of a clinically suspicious abnormality. [id number] Electronically Signed: Tariq Kapoor MD at 10:13 EDT ,
== END | disposition home or self-care (01) ==
LOC: OPBI 08:40
PROVIDERS: PCP Family Medicine Geriatric Medicine; Visit Provider Family Medicine Geriatric Medicine
DX: Z12.31 Encounter for screening mammogram for malignant neoplasm of breast (principal)
CPT/HCPCS: 77063; 77067

== ENCOUNTER → 2022-01-21 | Outpatient (CLI) | payer MEDICARE, OTHER, SELFPAY ==
[2022-01-21 10:28] LABS: International Normalized Ratio 1.3; Prothrombin Time (Protime)PT. 15.8 SECONDS (11.7-14.9)
== END | disposition home or self-care (01) ==
LOC: LAB 09:48
PROVIDERS: PCP Family Medicine Geriatric Medicine; Visit Provider Family Medicine Geriatric Medicine
DX: I26.99 Other pulmonary embolism without acute cor pulmonale (principal)
CPT/HCPCS: 36415; 85610

== ENCOUNTER → 2022-03-22 | Outpatient (CLI) | payer MEDICARE, OTHER, SELFPAY ==
[2022-03-22 15:14] LABS: Amphetamine Urine VISTA NEGATIVE (<1000 ng/mL); Barbiturate Urine VISTA NEGATIVE (< 200 ng/mL); Benzodiazepine Urine VISTA NEGATIVE (< 200 ng/mL); Cocaine Urine VISTA NEGATIVE (< 300 ng/mL); Ecstacy Urine VISTA POSITIVE (< 500 ng/mL); Methadone Urine VISTA NEGATIVE (< 300 ng/mL); PCP Urine VISTA NEGATIVE (< 25 ng/mL); THC Urine VISTA NEGATIVE (< 50 ng/mL); Vista UDS pH Range 5
== END | disposition home or self-care (01) ==
LOC: LAB 13:29
PROVIDERS: PCP Family Medicine Geriatric Medicine; Referring Provider Anesthesiology Pain Medicine; Visit Provider Anesthesiology Pain Medicine
DX: F11.20 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, 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 (principal)
CPT/HCPCS: 80307

== ENCOUNTER → 2022-04-05 | Outpatient (CLI) | payer MEDICARE, OTHER, SELFPAY ==
[2022-04-05 12:24] LABS: Absolute Lymphocyte Count 1.89 X10^3/uL (0.83-4.51); Absolute Neutrophil Count 4.1 X10^3/uL (2.0-7.7); Basophil# 0.04 X10^3/uL; Basophil% 0.6 % (0-1); Eosinophil# 0.15 X10^3/uL; Eosinophils% 2.2 % (0-5); Hematocrit 39.3 % (37-47); Hemoglobin 12.9 g/dL (12.0-15.0); Lymphocyte # 1.89 X10^3/ul (0.83-4.51); Mean Corp Hgb Conc 32.8 g/dL (32-36); Mean Corpuscular Hgb 31.2 pg (27.0-32.0); Mean Corpuscular Volume 95.2 fL (81-99); Monocyte# 0.51 X10^3/uL; Monocyte% 7.6 % (0-10); NRBC Flagged by Analyzer 0 % (0-5); Neutrophil # 4.14 X10^3/uL (2.7-7.7); Neutrophil % 61.3 % (47-70); Platelet Count 187 K/mm3 (150-450); RBC Distribution Width CV 14.1 % (11.6-14.6); RBC Distribution Width SD 49.5 fl (35.1-43.9); Red Blood Count 4.13 M/mm3 (4.2-5.4); White Blood Count 6.8 K/mm3 (4.4-11.0)
[2022-04-05 12:48] LABS: Vitamin D,25 Hydroxy 33.2 ng/mL
[2022-04-05 13:09] LABS: ALB/GLOB Ratio 0.9 RATIO (0.9-2.4); AST(SGOT) 16 U/L (15-37); Alanine Aminotransfer ALT/SGPT 18 U/L (13-56); Albumin, Serum 3.4 g/dL (3.2-5.0); Alkaline Phosphatase 85 U/L (45-117); Anion Gap 6 (5-15); BUN 26 mg/dL (7-18); BUN/Creat Ratio 30.9 RATIO (10-20); Calcium,Total 8.8 mg/dL (8.5-10.1); Chloride 109 mmol/L (98-107); Cholesterol 151 mg/dL (200); Creatinine, Serum 0.84 mg/dL (0.55-1.02); EST Glomerular Filtration Rate 71 mL/min (>60); Est Glom Filt Rate - Afr Amer 86 mL/min (>60); Globulin 3.8 g/dL (2.2-4.2); Glucose 133 mg/dL (74-106); High Density Lipoprotein 66 mg/dL; Protein, Total 7.2 g/dL (6.4-8.2); Sodium Level 140 mmol/L (136-145); Thyroid Stim Hormone (TSH) 0.97 uIU/mL (0.358-3.74); Triglycerides 174 mg/dL; Very Low Density Lipoprotein 35 mg/dL (5-40)
== END | disposition home or self-care (01) ==
LOC: POLAB3 10:03
PROVIDERS: PCP Family Medicine Geriatric Medicine; Visit Provider Family Medicine Geriatric Medicine
DX: I10 Essential (primary) hypertension (principal); E55.9 Vitamin D deficiency, unspecified
CPT/HCPCS: 36415; 80053; 80061; 82306; 84443; 85025

== ENCOUNTER → 2022-10-11 | Outpatient (CLI) | payer MEDICARE, OTHER, SELFPAY ==
[2022-10-11 11:18] LABS: Absolute Lymphocyte Count 0.85 X10^3/uL (0.83-4.51); Absolute Neutrophil Count 7.3 X10^3/uL (2.0-7.7); Basophil# 0.02 X10^3/uL; Basophil% 0.2 % (0-1); Hematocrit 39.4 % (37-47); Hemoglobin 13.3 g/dL (12.0-15.0); Lymphocyte # 0.85 X10^3/ul (0.83-4.51); Lymphocyte % 9.9 % (19-41); Mean Corp Hgb Conc 33.8 g/dL (32-36); Mean Corpuscular Volume 94.9 fL (81-99); Mean Platelet Vol. 10.1 fl (6.2-12.0); Monocyte# 0.44 X10^3/uL; Monocyte% 5.1 % (0-10); NRBC Flagged by Analyzer 0 % (0-5); Neutrophil # 7.25 X10^3/uL (2.7-7.7); Neutrophil % 84.5 % (47-70); Platelet Count 182 K/mm3 (150-450); RBC Distribution Width CV 13.2 % (11.6-14.6); RBC Distribution Width SD 45.6 fl (35.1-43.9); Red Blood Count 4.15 M/mm3 (4.2-5.4); White Blood Count 8.6 K/mm3 (4.4-11.0)
[2022-10-11 11:34] LABS: Vitamin D,25 Hydroxy 43.2 ng/mL
[2022-10-11 11:43] LABS: ALB/GLOB Ratio 0.9 RATIO (0.9-2.4); AST(SGOT) 15 U/L (15-37); Alanine Aminotransfer ALT/SGPT 21 U/L (13-56); Albumin, Serum 3.4 g/dL (3.2-5.0); Alkaline Phosphatase 104 U/L (45-117); Anion Gap 5 (5-15); BUN 15 mg/dL (7-18); Calcium,Total 9.5 mg/dL (8.5-10.1); Chloride 110 mmol/L (98-107); Cholesterol 136 mg/dL (200); EST Glomerular Filtration Rate 59 mL/min (>60); Est Glom Filt Rate - Afr Amer 71 mL/min (>60); Globulin 3.6 g/dL (2.2-4.2); Glucose 161 mg/dL (74-106); High Density Lipoprotein 59 mg/dL; Potassium 3.9 mmol/L (3.5-5.1); Sodium Level 143 mmol/L (136-145); Thyroid Stim Hormone (TSH) 0.99 uIU/mL (0.358-3.74); Triglycerides 132 mg/dL; Very Low Density Lipoprotein 26 mg/dL (5-40)
== END | disposition home or self-care (01) ==
LOC: POLAB3 08:59
PROVIDERS: PCP Family Medicine Geriatric Medicine; Visit Provider Family Medicine Geriatric Medicine
DX: I10 Essential (primary) hypertension (principal); E55.9 Vitamin D deficiency, unspecified
CPT/HCPCS: 36415; 80053; 80061; 82306; 84443; 85025

== ENCOUNTER → 2022-11-21 | Outpatient (CLI) | payer MEDICARE, OTHER, SELFPAY ==
--- NOTE | 2022-11-21 09:25 | BD_ITS ---
STUDY: DUAL ENERGY X-RAY ABSORPTIOMETRY / DXA REASON FOR EXAM: Female, 67 years old. Z78.0 TECHNIQUE: Bone Mineral Density (BMD) measurements of lumbar spine and bilateral hips were obtained. COMPARISON: None. FINDINGS: Lumbar Spine (L1-L4): g/cm2 (0.981) / T-score (-0.5) / Z-score (1.5) Findings are suggestive of normal bone density with a low fracture risk. Left Femur Total: g/cm2 (0.714) / T-score (-1.9) / Z-score (-0.4) Left Femoral Neck: g/cm2 (0.561) / T-score (-2.6) / Z-score (-0.9) Right Femur Total: g/cm2 (0.723) / T-score (-1.8) / Z-score (-0.3) Right Femoral Neck: g/cm2 (0.560) / T-score (-2.6) / Z-score (-0.9) BD/Dexa Bone Density Study IMPRESSION: The patient is considered osteoporotic as outlined below according to World Dev Organization (WHO) criteria with a high fracture risk. Reference Information: The T-score is the number of standard deviations above or below the standard which is normal for young adults at their peak bone mineral density. The World Health Organization (WHO) interprets the T-scores as follows: Above -1 Normal bone density Between -1 and -2.5 Osteopenia Equal to / or below -2.5 Osteoporosis As a practical clinical guideline, osteopenia may be graded as follows: Mild -1 through -1.5 Moderate -1.6 through -2.0 Severe -2.1 through -2.4 The Z-score is the number of standard deviations above or below age-matched controls. A Z-score of less than -1.5 would be considered abnormal. References: 1. NIH Osteoporosis and Related Bone Diseases www osteo.org 2. International Society for Clinical Densitometry www iscd.org 3. National Osteoporosis Foundation www nof.org Electronically Signed: Tariq Kapoor MD at 14:07 EDT ,
--- NOTE | 2022-11-21 09:41 | BI_ITS ---
MAMMOGRAPHY - BILATERAL SCREENING REASON FOR EXAM: Female, 67 years old. Routine annual screening examination. PERTINENT HISTORY: Non-contributory. TECHNIQUE: Digital bilateral breast valeri (3D mammographic acquisition) in the CC and MLO projections. 2-D mediolateral oblique (MLO) and craniocaudad (CC) views of both breasts were obtained. CAD: Full Field Digital Mammography with Computer Added Detection was performed. COMPARISON: Comparison is made with prior study November 02, 2021 and January 06, 2020. FINDINGS: Breast Composition: There are scattered areas of fibroglandular density. There are no dominant masses or suspicious calcifications. Stable benign appearing bilateral axillary nodes. No other significant abnormalities are identified. There has been no significant change since the prior study. BI/SCRN MAMM (CAD)W/VALERI BILAT IMPRESSION: Stable bilateral screening mammogram. Yearly follow-up mammogram recommended. (A) ASSESSMENT CATEGORY: BIRADS Category 2: Benign. A letter regarding these results will be sent to the patient by the facility within 30 days. Approximately 10% of breast cancers are not detected by mammography. A normal mammogram should not delay biopsy of a clinically suspicious abnormality. [id number] Electronically Signed: Tariq Kapoor MD at 10:47 EDT ,
== END | disposition home or self-care (01) ==
LOC: OPBD 09:18
PROVIDERS: PCP Family Medicine Geriatric Medicine; Referring Provider Family Medicine Geriatric Medicine; Visit Provider Family Medicine Geriatric Medicine
DX: Z12.31 Encounter for screening mammogram for malignant neoplasm of breast (principal); Z78.0 Asymptomatic menopausal state
CPT/HCPCS: 77063; 77067; 77080

== ENCOUNTER → 2022-12-08 | Outpatient (CLI) | payer MEDICARE, OTHER, SELFPAY ==
--- NOTE | 2022-12-08 10:15 | RAD_ITS ---
INDICATION: Primary osteoarthritis, left shoulder EXAMINATION/TECHNIQUE: X-RAY - LEFT XR Shoulder Min 2 Views 4 VIEWS COMPARISON: No relevant prior comparison study available FINDINGS: SOFT TISSUES: No soft tissue swelling or gas. No radiopaque foreign body. BONES/JOINTS: No acute fracture or subluxation.. Normal alignment. Preservation of the joint space.. Mild sclerosis and subchondral cystic changes of the greater tuberosity. RAD/Shoulder min 2 Views IMPRESSION: Degenerative changes. Electronically Signed: Mathew Amaya MD at 11:27 EDT ,
== END | disposition home or self-care (01) ==
LOC: RAD 10:09
PROVIDERS: PCP Family Medicine Geriatric Medicine; Referring Provider Family Medicine Geriatric Medicine; Visit Provider Family Medicine Geriatric Medicine
DX: M19.012 Primary osteoarthritis, left shoulder (principal)
CPT/HCPCS: 73030

== ENCOUNTER → 2023-04-12 | Outpatient (CLI) | payer MEDICARE, OTHER, SELFPAY ==
[2023-04-12 10:47] LABS: Absolute Lymphocyte Count 1.46 X10^3/uL (0.83-4.51); Basophil# 0.03 X10^3/uL; Basophil% 0.6 % (0-1); Eosinophil# 0.08 X10^3/uL; Eosinophils% 1.6 % (0-5); Hematocrit 40.1 % (37-47); Hemoglobin 13.3 g/dL (12.0-15.0); Lymphocyte # 1.46 X10^3/ul (0.83-4.51); Lymphocyte % 29.4 % (19-41); Mean Corp Hgb Conc 33.2 g/dL (32-36); Mean Corpuscular Volume 96.4 fL (81-99); Mean Platelet Vol. 10.2 fl (6.2-12.0); Monocyte# 0.43 X10^3/uL; Monocyte% 8.7 % (0-10); NRBC Flagged by Analyzer 0 % (0-5); Neutrophil # 2.95 X10^3/uL (2.7-7.7); Neutrophil % 59.3 % (47-70); Platelet Count 184 K/mm3 (150-450); RBC Distribution Width CV 13.5 % (11.6-14.6); RBC Distribution Width SD 47.9 fl (35.1-43.9); Red Blood Count 4.16 M/mm3 (4.2-5.4)
[2023-04-12 11:14] LABS: AST(SGOT) 15 U/L (15-37); Alanine Aminotransfer ALT/SGPT 18 U/L (13-56); Albumin, Serum 3.4 g/dL (3.2-5.0); Alkaline Phosphatase 89 U/L (45-117); Anion Gap 7 (5-15); BUN 18 mg/dL (7-18); BUN/Creat Ratio 19.7 RATIO (10-20); Calcium,Total 9.1 mg/dL (8.5-10.1); Chloride 110 mmol/L (98-107); Creatinine, Serum 0.92 mg/dL (0.55-1.02); EST Glomerular Filtration Rate 65 mL/min (>60); Est Glom Filt Rate - Afr Amer 78 mL/min (>60); Globulin 3.5 g/dL (2.2-4.2); Glucose 147 mg/dL (74-106); Protein, Total 6.9 g/dL (6.4-8.2); Sodium Level 143 mmol/L (136-145); Thyroid Stim Hormone (TSH) 0.63 uIU/mL (0.358-3.74)
[2023-04-12 11:48] LABS: Vitamin D,25 Hydroxy 55.5 ng/mL
== END | disposition home or self-care (01) ==
LOC: POLAB3 09:31
PROVIDERS: PCP Family Medicine Geriatric Medicine; Visit Provider Family Medicine Geriatric Medicine
DX: I10 Essential (primary) hypertension (principal); E55.9 Vitamin D deficiency, unspecified
CPT/HCPCS: 36415; 80053; 82306; 84443; 85025

== ENCOUNTER → 2023-05-17 | Outpatient (CLI) | payer MEDICARE, OTHER, SELFPAY | END | disposition home or self-care (01) | LOC: PSN 10:32 | PROVIDERS: PCP Family Medicine Geriatric Medicine; Referring Provider Family Medicine Geriatric Medicine; Visit Provider Family Medicine Geriatric Medicine | DX: R68.83 Chills (without fever) (principal) | CPT/HCPCS: 87631 ==

== ENCOUNTER → 2023-06-13 | Outpatient (CLI) | payer MEDICARE, OTHER, SELFPAY ==
[2023-06-13 14:10] LABS: Absolute Lymphocyte Count 1.52 X10^3/uL (0.83-4.51); Basophil# 0.04 X10^3/uL; Basophil% 0.5 % (0-1); Eosinophil# 0.05 X10^3/uL; Eosinophils% 0.6 % (0-5); Hematocrit 41.5 % (37-47); Hemoglobin 13.9 g/dL (12.0-15.0); Lymphocyte # 1.52 X10^3/ul (0.83-4.51); Lymphocyte % 18.5 % (19-41); Mean Corp Hgb Conc 33.5 g/dL (32-36); Mean Corpuscular Hgb 32.1 pg (27.0-32.0); Mean Corpuscular Volume 95.8 fL (81-99); Monocyte# 0.62 X10^3/uL; Monocyte% 7.5 % (0-10); NRBC Flagged by Analyzer 0 % (0-5); Neutrophil # 5.96 X10^3/uL (2.7-7.7); Neutrophil % 72.5 % (47-70); Platelet Count 185 K/mm3 (150-450); RBC Distribution Width CV 13.2 % (11.6-14.6); RBC Distribution Width SD 46.8 fl (35.1-43.9); Red Blood Count 4.33 M/mm3 (4.2-5.4); White Blood Count 8.2 K/mm3 (4.4-11.0)
[2023-06-13 15:34] LABS: ALB/GLOB Ratio 1.1 RATIO (0.9-2.4); AST(SGOT) 14 U/L (15-37); Alanine Aminotransfer ALT/SGPT 29 U/L (13-56); Albumin, Serum 3.7 g/dL (3.2-5.0); Alkaline Phosphatase 90 U/L (45-117); Anion Gap 5 (5-15); BUN 22 mg/dL (7-18); Calcium,Total 9.3 mg/dL (8.5-10.1); Chloride 108 mmol/L (98-107); EST Glomerular Filtration Rate 52 mL/min (>60); Est Glom Filt Rate - Afr Amer 63 mL/min (>60); Globulin 3.4 g/dL (2.2-4.2); Glucose 134 mg/dL (74-106); Potassium 4.1 mmol/L (3.5-5.1); Protein, Total 7.1 g/dL (6.4-8.2); Sodium Level 139 mmol/L (136-145); Thyroid Stim Hormone (TSH) 0.41 uIU/mL (0.358-3.74)
== END | disposition home or self-care (01) ==
LOC: POLAB3 13:49
PROVIDERS: PCP Family Medicine Geriatric Medicine; Visit Provider Family Medicine Geriatric Medicine
DX: N39.0 Urinary tract infection, site not specified (principal); I10 Essential (primary) hypertension; R42 Dizziness and giddiness
CPT/HCPCS: 36415; 80053; 84443; 85025; 87086; 87088

== ENCOUNTER → 2023-06-26 | Outpatient (CLI) | payer MEDICARE, OTHER, SELFPAY ==
--- NOTE | 2023-06-26 13:13 | MRI_ITS ---
HISTORY: DIZZINESS. TECHNIQUE: Multiplanar and multisequence MR images of the brain were obtained without contrast. 282 images. COMPARISON: None. FINDINGS: BRAIN PARENCHYMA: Very mild foci of increased T2 FLAIR signal in the bilateral white matter. No abnormal focus of restricted diffusion. No acute intracranial hemorrhage identified. CSF SPACES: Mild volume loss with a partially empty sella configuration. No significant midline shift or other mass effect.No extra-axial fluid collection. VASCULAR SYSTEM: Major intracranial flow voids are maintained. PARANASAL SINUSES AND MASTOID AIR CELLS: No significant air fluid levels. ORBITS: Bilateral lens resections. MRI/Brain without Contrast IMPRESSION: No evidence for acute infarct. Mild chronic involutional and white matter changes. Electronically Signed: Radha Guido MD at 14:32 EDT ,
== END | disposition home or self-care (01) ==
PROVIDERS: PCP Family Medicine Geriatric Medicine; Referring Provider Family Medicine Geriatric Medicine; Visit Provider Family Medicine Geriatric Medicine
DX: R42 Dizziness and giddiness (principal)
CPT/HCPCS: 70551

== ENCOUNTER 2023-07-03 14:33 | Emergency (ER) | payer MEDICARE, OTHER, SELFPAY ==
[2023-07-03 14:36] VITALS: BP 169/67; PULSE 64; RESP 18; TEMP 35.5; O2SAT 96; O2SAT 99; BMI 38.4
--- NOTE | 2023-07-03 15:12 | EX.ED.DYSGE1 ---
HPI History of Present Illness Chief Complaint: Hypertension [facility] Medical History (HFpEF) heart failure with preserved ejection fraction (09/16/21) Arthrosis of first carpometacarpal joint COPD (chronic obstructive pulmonary disease) Deep vein thrombosis, lower left extremity Essential (primary) hypertension History of pulmonary embolism Hyperlipidemia Kidney stones Longstanding persistent atrial fibrillation Morbid obesity Obstructive sleep apnea Paroxysmal atrial fibrillation Pneumonia Pyelonephritis (09/16/21) Septic shock (09/16/21) Severe sepsis TIA (transient ischemic attack) Type 2 diabetes mellitus Home Medications albuterol sulfate 90 mcg/actuation aerosol inhaler 2 puff inhalation Q4H PRN PRN COUGH/WHEEZE 04/20/17 [History Last Taken Unknown] budesonide-formoterol HFA 160 mcg-4.5 mcg/actuation aerosol inhaler 2 puff inhalation BID copd 04/20/17 [History Last Taken 02/28/19] celecoxib 200 mg capsule 200 mg PO DAILY depression 04/20/17 [History Last Taken 02/28/19] vitamins A,C,X-nqrt-cqpqhh 4,296 mcg-226 mg-90 mg capsule 1 ea PO DAILY vision vitamin 04/20/17 [History Last Taken 02/28/19] metoprolol tartrate 25 mg tablet 25 mg PO BID #60 tabs 10/29/18 [Rx Last Taken 02/28/19] calcium carbonate 600 mg PO DAILY 04/23/19 [History Last Taken Unknown] olmesartan 40 mg tablet 40 mg PO DAILY 04/23/19 [History Last Taken Unknown] hydrocodone-acetaminophen 5-325mg 5mg-325mg 1 tab PO BID BACK PAIN 10/27/20 [History Last Taken Unknown] pramipexole 0.5 mg tablet 0.5 mg PO BID RESTLESS LEGS 10/27/20 [History Last Taken Unknown] vortioxetine 20 mg tablet 20 mg PO DAILY depression 10/27/20 [History Last Taken Unknown] multivitamin 1 tab PO DAILY 03/14/22 [History Last Taken Unknown] rosuvastatin 40 mg tablet 40 mg PO DAILY 03/14/22 [History Last Taken Unknown] solifenacin 5 mg tablet 5 mg PO DAILY 03/14/22 [History Last Taken Unknown] trazodone 100 mg tablet 100 mg PO QHS 03/14/22 [History Last Taken Unknown] warfarin 5 mg tablet 5 mg PO DAILY MANAGED BY DR. CORRAL 06/09/22 [History Last Taken Unknown] Allergy/AdvReac Type Severity Reaction Status Date / Time flecainide [Flecainide] Allergy Rash Verified 09/19/22 09:07 Family History (Reviewed 09/19/22 @ 09:04 by Karrie Elam SENIOR PENSIONS ADMINISTRATOR, SENIOR PENSIONS ADMINISTRATOR-C) Father CAD (coronary artery disease) Myocardial infarction Other Diabetes Surgical History (Reviewed 09/19/22 @ 09:04 by aKrrie Elam SENIOR PENSIONS ADMINISTRATOR, SENIOR PENSIONS ADMINISTRATOR-C) History of cardioversion (02/2010) History of lithotripsy History of radiofrequency ablation procedure for cardiac arrhythmia (05/2010) History of repair of left rotator cuff History of repair of right rotator cuff History of reverse total replacement of right shoulder joint History of thumb surgery History of tonsillectomy History of total left knee replacement History of tubal ligation Social History (Reviewed 09/19/22 @ 09:04 by Karrie Elam SENIOR PENSIONS ADMINISTRATOR, SENIOR PENSIONS ADMINISTRATOR-C) Smoking Status: Never smoker alcohol intake: never substance use type: does not use caffeine: Yes Type: carbonated beverages Number of servings: 2 EXAM Physical Exam Const Vital Signs: 07/03/23 14:36 07/03/23 14:36 07/03/23 16:00 Temperature 96 F L Temperature Source Temporal Pulse Rate 64 64 Respiratory Rate 18 18 Blood Pressure 169/67 H 169/67 H Blood Pressure Mean 101 101 Pulse Ox 96 99 Oxygen Delivery Method Room Air Room Air Room Air 07/03/23 16:32 07/03/23 18:00 Temperature Temperature Source Pulse Rate 66 70 Respiratory Rate 14 12 Blood Pressure 152/77 H 165/80 H Blood Pressure Mean 102 108 Pulse Ox 97 96 Oxygen Delivery Method Room Air Room Air MDM MDM MDM Narrative Medical decision making narrative: HISTORY OF PRESENT ILLNESS: 67-year-old female presents with concern for elevated blood pressure. She states She also has chest tightness. She states this occurred after 1 episode of nonbloody nonbilious vomitus. She denies any nausea at this time. States she recently changed her blood pressure medicine from olmesartan 40 mg to olmesartan 20 mg daily. Has baseline exertional shortness of breath. Denies any lower extremity edema. The patient denies recent surgery in the last 4 weeks or immobilization in the last 3 days, denies previous diagnosis of DVT or PE, hemoptysis, unilateral leg swelling or malignancy with treatment the last 6 months or palliative. No estrogen use noted. Patient denies sudden onset of pain, no tearing sensation, no migratory symptoms, no new numbness, weakness or loss of sensation. Patient denies family history or personal history of Connective tissue disorders (Marfan's Syndrome, Flavia Danlos etc) REVIEW OF SYSTEMS: Pertinent positives: Elevated blood pressure, chest tightness Pertinent negatives: Headache, facial drooping, focal weakness, loss of sensation PHYSICAL EXAM: Nursing triage notes reviewed, Vital signs reviewed Constitutional: please see mdm HENT: MMM Eyes: Pupils equal round and reactive to light, Extraocular muscles intact Neck: No stridor, no JVD, full neck ROM Lungs: Clear to auscultation, No wheezing or rales. No increased work of breathing, no conversational dyspnea, no accessory muscle use, no nasal flaring. No respiratory distress noted Heart: Regular rate and rhythm, No murmurs, No rubs and No gallops, 2+ distal pulses (radial, femoral, posterior tibial) in all extremities Abdomen: Soft, there is no tenderness, rigidity, rebound or guarding, no obvious peritoneal signs, no palpable pulsatile abdominal masses, no auscultated abdominal bruit : No CVAT Extremities: No edema Neuro: No focal neurological deficits, cranial nerves II through XII intact, 5/5 strength in all extremities. Intact sensation to light touch in all extremities, 2+ reflexes bilateral patella tendons. Normal gait. No ataxia. Skin: No rash or lesions noted MEDICAL DECISION MAKING: Chief Complaint: Hypertension, chest pressure External records reviewed: Imaging studies reviewed: Echocardiogram from August 2021 shows ejection fraction 65 Factors affecting care: History of hypertension on metoprolol, PE on warfarin, TEETEE, COPD, DVT, heart failure, obesity, atrial fibrillation Social determinants of health: Elderly History obtained from others: Family Consults: none [facility] Narrative: Patient was initially hypertensive otherwise afebrile and nontoxic-appearing. Exam without focal neurologic deficits. No focal cardiopulmonary abnormalities I considered the following differential diagnosis: ACS, arrhythmia, anemia, endorgan damage due to high blood pressure, PE, pneumonia I obtained a broad lab and imaging workup to further elucidate the etiology the patient's complaints. I considered pulm embolism potential etiology of the patient low risk Wells score and as such advanced imaging is not indicated at this time I treated the patient with as needed nitroglycerin ALL IMAGES (IF OBTAINED) HAVE BEEN PERSONALLY REVIEWED AND INTERPRETED BY MYSELF. EKG with rate controlled atrial fibrillation, normal axis, normal intervals, no obvious STEMI High-sensitivity troponin is negative, no evidence of myocardial ischemia x2 CBC without leukocytosis, severe anemia, no thrombocytopenia. No coagulopathy INR subtherapeutic BMP without evidence of significant electrolyte abnormalities, no anion gap, no acute kidney injury. I have personally reviewed the patient's chest x-ray. Chest x-ray is unremarkable for pulmonary edema, pneumothorax, pneumonia or focal cardiopulmonary abnormality. The synthesis of the patient's history, physical exam labs images suggest no acute life-limiting etiology pacifically no signs of ACS, morning, PE, arrhythmia, anemia, endorgan damage. Blood pressure was elevated but not subsequently so it does not require emergent treatment. He is appropriate discharge home with close PCP follow-up for outpatient blood pressure management. The patient and/or family, caregivers express understanding. The patient and/or family, caregivers agrees with the plan. Shared decision making: I will have a discussion with the patient and or visitors regarding risk/benefits of further testing or admission. They will be made aware of of the risk/benefits inherent in this decision they will be given the opportunity to voice understanding. Total critical care time today provided was at least 0 minutes. This excludes separately billable procedures. Critical care time (if documented) is secondary to the patient having high probability of clinically significant/life threatening deterioration in the patient's condition which required my urgent intervention. Impression: 1. Chest pressure 2. Elevated blood pressure 3. History of hypertension Dispo: dc home This note was generated with [email or web address] dictation software. It may contain incorrect words, spelling, and punctuation that were not noted in review of the chart prior to signing. Lab Data Labs: Laboratory Results - last 24 hr 07/03/23 07/03/23 15:45 18:28 WBC 6.9 RBC 4.06 L Hgb 13.1 Hct 39.1 MCV 96.3 MCH 32.3 H MCHC 33.5 RDW Std Deviation 47.7 H RDW Coeff of Cara 13.4 Plt Count 195 MPV 9.6 Immature Gran % (Auto) 0.300 Neut % (Auto) 69.8 Lymph % (Auto) 20.5 [place] % (Auto) 8.1 Eos % (Auto) 0.7 Baso % (Auto) 0.6 Absolute Neuts (auto) 4.8 Absolute Lymphs (auto) 1.41 Nucleated RBC % 0 PT 19.5 H INR 1.7 Sodium 141 Potassium 4.3 Chloride 109 H Carbon Dioxide 27.0 Anion Gap 5 BUN 19 H Creatinine 0.75 Estim Creat Clear Calc 82.52 Est GFR (MDRD) Af Amer 98 Est GFR (MDRD) Non-Af 81 BUN/Creatinine Ratio 25.2 H Glucose 121 H Calcium 9.1 Troponin I High Sens 11 11 Radiography Diagnostic Testing: Clinical Impression(s) from Imaging Studies Chest X-Ray 07/03/23 15:55 IMPRESSION: No radiographic evidence of acute cardiopulmonary disease. Electronically Signed: Shaq Oakley DO at 16:07 EDT Reading Location ID and State: [facility] / [place] Tel [phone], Service support , Discharge Plan Triage Chief Complaint: Hypertension ED Provider: Sawyer Curtis Dx/Rx/DC Orders Prescriptions: No Action olmesartan 40 mg tablet 40 mg PO DAILY calcium carbonate 600 mg calcium (1,500 mg) tablet 600 mg PO DAILY multivitamin Tablet 1 tab PO DAILY solifenacin 5 mg tablet 5 mg PO DAILY trazodone 100 mg tablet 100 mg PO QHS rosuvastatin 40 mg tablet 40 mg PO DAILY celecoxib 200 MG capsule 200 mg PO DAILY albuterol sulfate 1 INHALER inhaler 2 puff INHALATION Q4H PRN PRN (Reason: COUGH/WHEEZE) vitamins A,C,T-jxoe-fdjuhm 1 EACH capsule 1 ea PO DAILY budesonide-formoterol 1 INHALER inhaler 2 puff inhalation BID pramipexole 0.5 mg tablet 0.5 mg PO BID vortioxetine 20 mg tablet 20 mg PO DAILY hydrocodone-acetaminophen 5-325 mg tablet 1 tab PO BID metoprolol tartrate 25 mg tablet 25 mg PO BID Qty: 60 11RF warfarin 5 mg tablet 5 mg PO DAILY Primary Care Provider: Ruddy Corral Chi Referrals: Ruddy Corral Chi, MD [Primary Care Provider] -
--- NOTE | 2023-07-03 15:55 | RAD_ITS ---
INDICATION: chest pain EXAMINATION/TECHNIQUE: X-RAY - XR Chest 1 View COMPARISON: FINDINGS: LINES/DEVICES: None. LUNGS: No consolidation, edema or effusion. No pneumothorax. MEDIASTINUM AND CARDIOVASCULAR STRUCTURES: Cardiac silhouette not enlarged. Central airways and mediastinal contour are unremarkable. BONES AND SOFT TISSUES: Status post right shoulder replacement. RAD/Chest 1 View (Portable) IMPRESSION: No radiographic evidence of acute cardiopulmonary disease. Electronically Signed: Shaq Oakley DO at 16:07 EDT ,
[2023-07-03 15:56] LABS: Absolute Lymphocyte Count 1.41 X10^3/uL (0.83-4.51); Absolute Neutrophil Count 4.8 X10^3/uL (2.0-7.7); Basophil# 0.04 X10^3/uL; Basophil% 0.6 % (0-1); Eosinophil# 0.05 X10^3/uL; Eosinophils% 0.7 % (0-5); Hematocrit 39.1 % (37-47); Hemoglobin 13.1 g/dL (12.0-15.0); Lymphocyte # 1.41 X10^3/ul (0.83-4.51); Lymphocyte % 20.5 % (19-41); Mean Corp Hgb Conc 33.5 g/dL (32-36); Mean Corpuscular Hgb 32.3 pg (27.0-32.0); Mean Corpuscular Volume 96.3 fL (81-99); Mean Platelet Vol. 9.6 fl (6.2-12.0); Monocyte# 0.56 X10^3/uL; Monocyte% 8.1 % (0-10); NRBC Flagged by Analyzer 0 % (0-5); Neutrophil # 4.81 X10^3/uL (2.7-7.7); Neutrophil % 69.8 % (47-70); Platelet Count 195 K/mm3 (150-450); RBC Distribution Width CV 13.4 % (11.6-14.6); RBC Distribution Width SD 47.7 fl (35.1-43.9); Red Blood Count 4.06 M/mm3 (4.2-5.4); White Blood Count 6.9 K/mm3 (4.4-11.0)
[2023-07-03 16:09] LABS: International Normalized Ratio 1.7; Prothrombin Time (Protime)PT. 19.5 SECONDS (11.7-14.9)
[2023-07-03 16:24] LABS: Anion Gap 5 (5-15); BUN 19 mg/dL (7-18); BUN/Creat Ratio 25.2 RATIO (10-20); Calcium,Total 9.1 mg/dL (8.5-10.1); Chloride 109 mmol/L (98-107); Creatinine, Serum 0.75 mg/dL (0.55-1.02); EST Glomerular Filtration Rate 81 mL/min (>60); Est Glom Filt Rate - Afr Amer 98 mL/min (>60); Estimated Creatinine Clearance 82.52 ml/min; Glucose 121 mg/dL (74-106); Potassium 4.3 mmol/L (3.5-5.1); Sodium Level 141 mmol/L (136-145); Troponin-I HS (w/2H Reflex) 11 pg/mL (3.0-54.0)
[2023-07-03 16:32] VITALS: BP 152/77; PULSE 66; RESP 14; O2SAT 97
[2023-07-03 17:49] LABS: Reflex Troponin-HS? (from REC) Y
[2023-07-03 18:00] VITALS: BP 165/80; PULSE 70; RESP 12; O2SAT 96
[2023-07-03 18:59] LABS: Troponin-I HS 11 pg/mL (3.0-54.0)
[2023-07-03 19:43] VITALS: BP 170/60; PULSE 72; RESP 18; TEMP 36.9; O2SAT 97
== END 2023-07-03 19:44 | disposition home or self-care (01) ==
PROVIDERS: Emergency Provider Emergency Medicine; PCP Family Medicine Geriatric Medicine; Visit Provider Emergency Medicine
DX: I11.0 Hypertensive heart disease with heart failure (principal); J44.9 Chronic obstructive pulmonary disease, unspecified; I48.11 Longstanding persistent atrial fibrillation; E11.9 Type 2 diabetes mellitus without complications; R07.89 Other chest pain; E78.5 Hyperlipidemia, unspecified; Z86.73 Personal history of transient ischemic attack (TIA), and cerebral infarction without residual deficits; Z79.51 Long term (current) use of inhaled steroids; Z79.899 Other long term (current) drug therapy; Z96.652 Presence of left artificial knee joint; Z98.51 Tubal ligation status
CPT/HCPCS: 71045; 80048; 84484; 85025; 85610; 93005; 99284; A4216

== ENCOUNTER → 2023-10-19 | Outpatient (CLI) | payer MEDICARE, OTHER, SELFPAY ==
[2023-10-19 10:03] LABS: Absolute Lymphocyte Count 1.33 X10^3/uL (0.83-4.51); Absolute Neutrophil Count 3.6 X10^3/uL (2.0-7.7); Basophil# 0.04 X10^3/uL; Basophil% 0.7 % (0-1); Eosinophil# 0.11 X10^3/uL; Hematocrit 41.3 % (37-47); Hemoglobin 13.6 g/dL (12.0-15.0); Lymphocyte # 1.33 X10^3/ul (0.83-4.51); Lymphocyte % 23.8 % (19-41); Mean Corp Hgb Conc 32.9 g/dL (32-36); Mean Corpuscular Hgb 31.5 pg (27.0-32.0); Mean Corpuscular Volume 95.6 fL (81-99); Mean Platelet Vol. 10.4 fl (6.2-12.0); Monocyte# 0.49 X10^3/uL; Monocyte% 8.8 % (0-10); NRBC Flagged by Analyzer 0 % (0-5); Neutrophil # 3.61 X10^3/uL (2.7-7.7); Neutrophil % 64.3 % (47-70); Platelet Count 143 K/mm3 (150-450); RBC Distribution Width CV 13.2 % (11.6-14.6); RBC Distribution Width SD 46.5 fl (35.1-43.9); Red Blood Count 4.32 M/mm3 (4.2-5.4); White Blood Count 5.6 K/mm3 (4.4-11.0)
[2023-10-19 10:19] LABS: Vitamin D,25 Hydroxy 58.9 ng/mL
[2023-10-19 10:26] LABS: AST(SGOT) 13 U/L (15-37); Alanine Aminotransfer ALT/SGPT 18 U/L (13-56); Albumin, Serum 3.5 g/dL (3.2-5.0); Alkaline Phosphatase 97 U/L (45-117); Anion Gap 7 (5-15); BUN 15 mg/dL (7-18); BUN/Creat Ratio 15.7 RATIO (10-20); Calcium,Total 8.7 mg/dL (8.5-10.1); Chloride 109 mmol/L (98-107); Creatinine, Serum 0.96 mg/dL (0.55-1.02); EST Glomerular Filtration Rate 61 mL/min (>60); Est Glom Filt Rate - Afr Amer 74 mL/min (>60); Globulin 3.6 g/dL (2.2-4.2); Glucose 123 mg/dL (74-106); Potassium 3.9 mmol/L (3.5-5.1); Protein, Total 7.1 g/dL (6.4-8.2); Sodium Level 141 mmol/L (136-145)
== END | disposition home or self-care (01) ==
LOC: POLAB3 09:34
PROVIDERS: PCP Family Medicine Geriatric Medicine; Visit Provider Family Medicine Geriatric Medicine
DX: I10 Essential (primary) hypertension (principal); E55.9 Vitamin D deficiency, unspecified
CPT/HCPCS: 36415; 80053; 82306; 84443; 85025

== ENCOUNTER 2023-10-30 20:40 | Emergency (ER) | payer MEDICARE, OTHER, SELFPAY ==
[2023-10-30 20:41] VITALS: BP 154/72; PULSE 75; RESP 16; TEMP 36.6; O2SAT 98
--- NOTE | 2023-10-30 20:45 | EKG12_ITS ---
Test Reason : CP Blood Pressure : / mmHG Vent. Rate : 073 BPM Atrial Rate : 000 BPM P-R Int : 000 ms QRS Dur : 100 ms QT Int : 414 ms P-R-T Axes : 000 040 006 degrees QTc Int : 456 ms Atrial fibrillation Abnormal ECG Confirmed by DHARMESH KRUEGER, DEX ([id number]), index editor PALOMO SEAMAN ([id number]) on 11/01/2023 1:48:11 PM Referred By: MATTHEW Confirmed By:DEX BARROSO MD
--- NOTE | 2023-10-30 21:00 | RAD_ITS ---
INDICATION: CP EXAMINATION/TECHNIQUE: X-RAY - XR Chest 1 View COMPARISON: 07/03/2023 chest radiograph. Findings: Single frontal view of the chest. LUNG PARENCHYMA: No acute focal airspace disease or mass lesion. PLEURA: No pleural effusion. No pneumothorax. HEART/GREAT VESSELS: Cardiomediastinal silhouette is unremarkable. BONES: Right shoulder arthroplasty, incompletely imaged, although no obvious hardware complication.. RAD/Chest 1 View (Portable) IMPRESSION: Chest with no acute disease. Electronically Signed: Andrei Trujillo MD at 22:35 EDT ,
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
[2023-10-30 21:12] VITALS: O2SAT 97
[2023-10-30 21:19] LABS: Absolute Lymphocyte Count 1.75 X10^3/uL (0.83-4.51); Absolute Neutrophil Count 4.8 X10^3/uL (2.0-7.7); Basophil# 0.04 X10^3/uL; Basophil% 0.5 % (0-1); Eosinophil# 0.09 X10^3/uL; Eosinophils% 1.2 % (0-5); Hematocrit 38.8 % (37-47); Hemoglobin 12.7 g/dL (12.0-15.0); Lymphocyte # 1.75 X10^3/ul (0.83-4.51); Lymphocyte % 23.9 % (19-41); Mean Corp Hgb Conc 32.7 g/dL (32-36); Mean Corpuscular Hgb 31.2 pg (27.0-32.0); Mean Corpuscular Volume 95.3 fL (81-99); Mean Platelet Vol. 10.1 fl (6.2-12.0); Monocyte# 0.58 X10^3/uL; Monocyte% 7.9 % (0-10); NRBC Flagged by Analyzer 0 % (0-5); Neutrophil # 4.84 X10^3/uL (2.7-7.7); Neutrophil % 66.1 % (47-70); Platelet Count 154 K/mm3 (150-450); RBC Distribution Width CV 12.9 % (11.6-14.6); RBC Distribution Width SD 45.1 fl (35.1-43.9); Red Blood Count 4.07 M/mm3 (4.2-5.4); White Blood Count 7.3 K/mm3 (4.4-11.0)
[2023-10-30 21:40] VITALS: BP 165/60; PULSE 64; RESP 15; O2SAT 96
[2023-10-30 21:46] LABS: International Normalized Ratio 1.6
[2023-10-30 22:00] VITALS: BP 163/69; PULSE 68; RESP 17; O2SAT 97
[2023-10-30 22:23] LABS: Anion Gap 5 (5-15); BUN 10 mg/dL (7-18); BUN/Creat Ratio 11.7 RATIO (10-20); Calcium,Total 8.7 mg/dL (8.5-10.1); Chloride 111 mmol/L (98-107); Creatinine, Serum 0.86 mg/dL (0.55-1.02); EST Glomerular Filtration Rate 70 mL/min (>60); Est Glom Filt Rate - Afr Amer 84 mL/min (>60); Glucose 93 mg/dL (74-106); Potassium 3.4 mmol/L (3.5-5.1); Sodium Level 145 mmol/L (136-145); Troponin-I HS (w/2H Reflex) 12 pg/mL (3.0-54.0)
[2023-10-30 23:00] VITALS: BP 158/75; PULSE 60; RESP 18; O2SAT 97
[2023-10-31] VITALS: BP 172/67; PULSE 64; RESP 16; O2SAT 98
[2023-10-31 00:01] LABS: Reflex Troponin-HS? (from REC) Y
[2023-10-31 00:27] LABS: Troponin-I HS 14 pg/mL (3.0-54.0)
[2023-10-31 01:00] VITALS: BP 177/76; PULSE 65; RESP 16; O2SAT 97
[2023-10-31 02:00] VITALS: BP 170/85; PULSE 66; RESP 16; TEMP 37.2; O2SAT 97
== END 2023-10-31 02:00 | disposition home or self-care (01) ==
PROVIDERS: Emergency Provider Emergency Medicine; PCP Family Medicine Geriatric Medicine; Visit Provider Emergency Medicine
DX: R07.9 Chest pain, unspecified (principal); I11.0 Hypertensive heart disease with heart failure; I50.9 Heart failure, unspecified; J44.9 Chronic obstructive pulmonary disease, unspecified; I48.91 Unspecified atrial fibrillation; E11.9 Type 2 diabetes mellitus without complications; I35.9 Nonrheumatic aortic valve disorder, unspecified; E78.5 Hyperlipidemia, unspecified; Z86.73 Personal history of transient ischemic attack (TIA), and cerebral infarction without residual deficits; G47.33 Obstructive sleep apnea (adult) (pediatric); Z86.718 Personal history of other venous thrombosis and embolism; Z86.711 Personal history of pulmonary embolism
CPT/HCPCS: 71045; 80048; 84484; 85025; 85610; 93005; 99284; A4216

== ENCOUNTER → 2023-11-14 | Outpatient (CLI) | payer MEDICARE, OTHER, SELFPAY ==
--- NOTE | 2023-11-14 12:51 | STRESSREP_ITS ---
Stress Test Report Date: 11/14/2023 Procedure: Pharmacologic stress nuclear imaging study Indications: Chest pain Consent: Per the patient Procedure: The patient underwent pharmacologic (Regadenoson 0.4mg ) evaluation with a peak heart rate of 77 beats per minute (50%predicted maximal heart rate) and a peak blood pressure of 140/78 mmHg. The baseline ECG demonstrated atrial fibrillation. The peak pharmacologic ECG demonstrated no diagnostic ischemic changes. Baseline atrial fibrillation. There was no complaint of chest discomfort during pharmacologic infusion or recovery. The patient was injected with 14.7 millicuries of technetium 99m Cardiolite and subsequently rest SPECT Cardiolite nuclear imaging was obtained in the horizontal long, vertical long, and short axis views. The patient underwent pharmacologic (Regadenoson) evaluation. The patient was injected with 44.3 millicuries of technetium 99m Cardiolite and subsequently stress SPECT Cardiolite nuclear imaging was obtained in the horizontal long, vertical long, and short axis views. A gated Cardiolite study at peak stress was obtained. The examination was stopped secondary to completion of protocol. Rest and stress SPECT Cardiolite nuclear imaging status post realignment, normalization, and attenuation correction demonstrate no fixed or reversible perfusion defects. There is end systolic thickening and brightening. The gated Cardiolite study demonstrates myocardial thickening and inward wall motion. The reported LVEF is 61%. Impression: 1. Pharmacologic (Regadenoson) evaluation 2. Peak pharmacologic ECG with no diagnostic ischemic changes. 3. Baseline atrial fibrillation. 5. Rest and stress SPECT Cardiolite nuclear imaging demonstrate relative un iform tracer uptake and myocardial perfusion appearing within normal limits. 6. The gated Cardiolite study reports an LVEF of 61%. This note was generated with [employer] software. It may contain incorrect words, spelling, and punctuation that were not noted in checking the note before signing.
== END | disposition home or self-care (01) ==
LOC: CVS 06:25
PROVIDERS: PCP Family Medicine Geriatric Medicine; Referring Provider Family Medicine Geriatric Medicine; Visit Provider Family Medicine Geriatric Medicine
DX: R07.9 Chest pain, unspecified (principal)
CPT/HCPCS: 78452; 93017; A9500; A4216; J2785

== ENCOUNTER → 2023-12-13 | Outpatient (CLI) | payer MEDICARE, OTHER, SELFPAY ==
--- NOTE | 2023-12-13 13:30 | RAD_ITS ---
STUDY: X-RAY - LUMBAR SPINE REASON FOR EXAM: Female, 68 years old. spondylosis in the lumbar region without myelopathy or radiculopa TECHNIQUE: 2 view(s) of the lumbar spine were obtained. COMPARISON: Lumbar spine radiograph May 16, 2017 FINDINGS: Normal lumbar lordosis. Mild dextroconvex scoliosis. Retrolisthesis at L1-2 and L2-3. There is multilevel endplate spondylosis of the lumbar vertebrae. Displaced narrowing at all levels. The soft tissue structures are unremarkable. RAD/Lumbar Spine 2 or 3 Views IMPRESSION: Degenerative disease and spondylosis Electronically Signed: Will Clark MD at 15:49 EDT ,
[2023-12-13 14:42] LABS: Amphetamine Urine VISTA NEGATIVE (<1000 ng/mL); Barbiturate Urine VISTA NEGATIVE (< 200 ng/mL); Benzodiazepine Urine VISTA NEGATIVE (< 200 ng/mL); Cocaine Urine VISTA NEGATIVE (< 300 ng/mL); Ecstacy Urine VISTA POSITIVE (< 500 ng/mL); Methadone Urine VISTA NEGATIVE (< 300 ng/mL); PCP Urine VISTA NEGATIVE (< 25 ng/mL); THC Urine VISTA NEGATIVE (< 50 ng/mL); Vista UDS pH Range 5
== END | disposition home or self-care (01) ==
LOC: RAD 13:02
PROVIDERS: PCP Family Medicine Geriatric Medicine; Referring Provider Anesthesiology Pain Medicine; Visit Provider Anesthesiology Pain Medicine
DX: M51.369 Other intervertebral disc degeneration, lumbar region without mention of lumbar back pain or lower extremity pain (principal); M47.816 Spondylosis without myelopathy or radiculopathy, lumbar region
CPT/HCPCS: 72100; 80307

== ENCOUNTER → 2024-03-28 | Outpatient (CLI) | payer MEDICARE, OTHER, SELFPAY | END | disposition home or self-care (01) | LOC: POLAB3 11:54 | PROVIDERS: PCP Family Medicine Geriatric Medicine; Visit Provider Family Medicine Geriatric Medicine | DX: R68.83 Chills (without fever) (principal) | CPT/HCPCS: 87631 ==

== ENCOUNTER → 2024-04-10 | Outpatient (CLI) | payer MEDICARE, OTHER, SELFPAY ==
--- NOTE | 2024-04-10 09:17 | RAD_ITS ---
EXAM: XR Right Shoulder Complete, 2 or More Views CLINICAL INDICATION: TECHNIQUE: Two or more views of the right shoulder. COMPARISON: No relevant prior studies available. FINDINGS: BONES/JOINTS: Total shoulder replacement. Intact hardware. No acute fracture. No dislocation. SOFT TISSUES: Soft tissue emphysema and swelling. 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 Reading Location: [facility]
[2024-04-10 10:30] LABS: Absolute Lymphocyte Count 2.05 X10^3/uL (0.83-4.51); Absolute Neutrophil Count 3.9 X10^3/uL (2.0-7.7); Basophil# 0.03 X10^3/uL; Basophil% 0.5 % (0-1); Eosinophil# 0.12 X10^3/uL; Eosinophils% 1.8 % (0-5); Hematocrit 40.8 % (37-47); Hemoglobin 13.6 g/dL (12.0-15.0); Lymphocyte # 2.05 X10^3/ul (0.83-4.51); Lymphocyte % 30.8 % (19-41); Mean Corp Hgb Conc 33.3 g/dL (32-36); Mean Corpuscular Hgb 32.2 pg (27.0-32.0); Mean Corpuscular Volume 96.7 fL (81-99); Mean Platelet Vol. 10.3 fl (6.2-12.0); Monocyte# 0.51 X10^3/uL; Monocyte% 7.7 % (0-10); NRBC Flagged by Analyzer 0 % (0-5); Neutrophil # 3.92 X10^3/uL (2.7-7.7); Neutrophil % 58.9 % (47-70); Platelet Count 212 K/mm3 (150-450); RBC Distribution Width CV 13.3 % (11.6-14.6); RBC Distribution Width SD 47.8 fl (35.1-43.9); Red Blood Count 4.22 M/mm3 (4.2-5.4); White Blood Count 6.7 K/mm3 (4.4-11.0)
[2024-04-10 10:32] LABS: Color, Urine Yellow (Yellow); Glucose, Dipstick Normal (Normal); Ketone-Dipstick Negative (Negative); Leukocyte Esterase-Dipstick 100 /ul (Negative); Nitrite-Dipstick Negative (Negative); Occult Blood-Urine 25 /ul (Negative); Protein-Dipstick 30 mg/dl (Negative); Specific Gravity, Urine 1.025 (1.002-1.030); Urine Bilirubin Dipstick Negative (Negative); Urine Clarity Sl. Cloudy (Clear); Urine Urobilinogen Normal (Normal)
[2024-04-10 10:52] LABS: Microalbumin:Creatinine Ratio 165.2 mg/g CRE (<30 mg/g CRE)
[2024-04-10 11:20] LABS: AST(SGOT) 19 U/L (15-37); Alanine Aminotransfer ALT/SGPT 20 U/L (13-56); Albumin, Serum 3.5 g/dL (3.2-5.0); Alkaline Phosphatase 96 U/L (45-117); Anion Gap 7 (5-15); BUN 17 mg/dL (7-18); BUN/Creat Ratio 18.3 RATIO (10-20); Calcium,Total 9.2 mg/dL (8.5-10.1); Chloride 107 mmol/L (98-107); Creatinine, Serum 0.93 mg/dL (0.55-1.02); EST Glomerular Filtration Rate 63 mL/min (>60); Est Glom Filt Rate - Afr Amer 77 mL/min (>60); Globulin 3.6 g/dL (2.2-4.2); Glucose 101 mg/dL (74-106); Potassium 4.2 mmol/L (3.5-5.1); Protein, Total 7.1 g/dL (6.4-8.2); Sodium Level 138 mmol/L (136-145)
== END | disposition home or self-care (01) ==
LOC: LAB 08:57
PROVIDERS: PCP Family Medicine Geriatric Medicine; Referring Provider Family Medicine Geriatric Medicine; Visit Provider Family Medicine Geriatric Medicine
DX: M25.511 Pain in right shoulder (principal); E11.22 Type 2 diabetes mellitus with diabetic chronic kidney disease; R42 Dizziness and giddiness; N18.9 Chronic kidney disease, unspecified; I12.9 Hypertensive chronic kidney disease with stage 1 through stage 4 chronic kidney disease, or unspecified chronic kidney disease
CPT/HCPCS: 36415; 73030; 80053; 81002; 82043; 82570; 84443; 85025

== ENCOUNTER → 2024-04-21 | Outpatient (CLI) | payer MEDICARE, OTHER, SELFPAY ==
[2024-04-21 11:06] LABS: Absolute Lymphocyte Count 1.67 X10^3/uL (0.83-4.51); Absolute Neutrophil Count 3.5 X10^3/uL (2.0-7.7); Basophil# 0.05 X10^3/uL; Basophil% 0.8 % (0-1); Eosinophil# 0.14 X10^3/uL; Eosinophils% 2.4 % (0-5); Hematocrit 44.9 % (37-47); Hemoglobin 14.9 g/dL (12.0-15.0); Lymphocyte # 1.67 X10^3/ul (0.83-4.51); Lymphocyte % 28.3 % (19-41); Mean Corp Hgb Conc 33.2 g/dL (32-36); Mean Corpuscular Hgb 32.6 pg (27.0-32.0); Mean Corpuscular Volume 98.2 fL (81-99); Mean Platelet Vol. 9.9 fl (6.2-12.0); Monocyte# 0.55 X10^3/uL; Monocyte% 9.3 % (0-10); NRBC Flagged by Analyzer 0 % (0-5); Neutrophil # 3.48 X10^3/uL (2.7-7.7); Neutrophil % 58.9 % (47-70); Platelet Count 192 K/mm3 (150-450); RBC Distribution Width CV 13.4 % (11.6-14.6); RBC Distribution Width SD 48.4 fl (35.1-43.9); Red Blood Count 4.57 M/mm3 (4.2-5.4); White Blood Count 5.9 K/mm3 (4.4-11.0)
[2024-04-21 11:22] LABS: Hemoglobin A1c 5.3 % (3.8-5.6)
[2024-04-21 12:40] LABS: Microalbumin,Random Urine 38.7 mg/L (NO RANGE EST.); Microalbumin:Creatinine Ratio 20.4 mg/g CRE (<30 mg/g CRE)
[2024-04-21 21:33] LABS: ALB/GLOB Ratio 1.1 RATIO (0.9-2.4); AST(SGOT) 19 U/L (15-37); Alanine Aminotransfer ALT/SGPT 20 U/L (13-56); Albumin, Serum 3.8 g/dL (3.2-5.0); Alkaline Phosphatase 105 U/L (45-117); Anion Gap 8 (5-15); BUN 17 mg/dL (7-18); BUN/Creat Ratio 17.5 RATIO (10-20); Calcium,Total 9.3 mg/dL (8.5-10.1); Chloride 108 mmol/L (98-107); Cholesterol 241 mg/dL (200); Creatinine, Serum 0.97 mg/dL (0.55-1.02); EST Glomerular Filtration Rate 60 mL/min (>60); Est Glom Filt Rate - Afr Amer 73 mL/min (>60); Globulin 3.6 g/dL (2.2-4.2); Glucose 98 mg/dL (74-106); High Density Lipoprotein 58 mg/dL; Potassium 3.8 mmol/L (3.5-5.1); Protein, Total 7.4 g/dL (6.4-8.2); Sodium Level 140 mmol/L (136-145); Triglycerides 329 mg/dL; Very Low Density Lipoprotein 66 mg/dL (5-40)
== END | disposition home or self-care (01) ==
LOC: POLAB3 10:46
PROVIDERS: PCP Family Medicine Geriatric Medicine; Visit Provider Family Medicine Geriatric Medicine
DX: E11.22 Type 2 diabetes mellitus with diabetic chronic kidney disease (principal); E11.65 Type 2 diabetes mellitus with hyperglycemia; N18.9 Chronic kidney disease, unspecified; E55.9 Vitamin D deficiency, unspecified; E78.5 Hyperlipidemia, unspecified; I12.9 Hypertensive chronic kidney disease with stage 1 through stage 4 chronic kidney disease, or unspecified chronic kidney disease
CPT/HCPCS: 36415; 80053; 80061; 82043; 82306; 82570; 83036; 84443; 85025

== ENCOUNTER → 2024-05-21 | Outpatient (CLI) | payer MEDICARE, OTHER, SELFPAY | END | disposition home or self-care (01) | PROVIDERS: PCP Family Medicine Geriatric Medicine; Referring Provider Family Medicine Geriatric Medicine; Visit Provider Family Medicine Geriatric Medicine | DX: J98.8 Other specified respiratory disorders (principal); R05.9 Cough, unspecified | CPT/HCPCS: 87631 ==

== ENCOUNTER → 2024-05-21 | Outpatient (CLI) | payer MEDICARE, OTHER, SELFPAY ==
--- NOTE | 2024-05-21 16:12 | RAD_ITS ---
EXAM: Chest PA and lateral CLINICAL HISTORY: Wheezing/shortness of breath COMPARISON: 10/30/2023 TECHNIQUE: PA and lateral views of the chest FINDINGS: Patchy ill-defined airspace opacity throughout the right lung with a lower zone predominance and very small area suggested at the peripheral left midlung. No pleural effusion. The cardiac and mediastinal contours appear within limits. Atherosclerotic change again noted at the aortic arch. Right shoulder replacement again noted. RAD/Chest PA and Lateral IMPRESSION: Infiltrate aynmv-wxrvsma-rtnb-left lung as above may be inflammatory or infecti ous, pneumonia, atypical etiology not excluded, clinically correlate and recommend follow-up to resolution. Reading Location: [id number]
== END | disposition home or self-care (01) ==
LOC: RAD 16:11
PROVIDERS: PCP Family Medicine Geriatric Medicine; Referring Provider Family Medicine Geriatric Medicine; Visit Provider Family Medicine Geriatric Medicine
DX: R06.02 Shortness of breath (principal); R06.2 Wheezing
CPT/HCPCS: 71046

== ENCOUNTER 2024-06-04 15:58 | Emergency (ER) | payer MEDICARE, OTHER, SELFPAY ==
[2024-06-04 15:58] VITALS: BP 151/83; PULSE 99; RESP 17; TEMP 36.8; O2SAT 94; BMI 34.8
[2024-06-04 16:03] VITALS: O2SAT 94
[2024-06-04] MEDS: HYDROcodone Bitartrate/Apap 5/325 Tablet PO (16:50)
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
[2024-06-04 17:48] LABS: Prothrombin Time (Protime)PT. 46.3 SECONDS (11.7-14.9)
[2024-06-04 17:54] LABS: International Normalized Ratio 4.8
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
[2024-06-04 17:58] VITALS: BP 158/62; PULSE 77; RESP 14; O2SAT 98
[2024-06-04 18:27] VITALS: BP 161/79; PULSE 98; RESP 16; TEMP 36.6; O2SAT 100
== END 2024-06-04 18:35 | disposition home or self-care (01) ==
PROVIDERS: Emergency Provider Emergency Medicine; PCP Family Medicine Geriatric Medicine; Visit Provider Emergency Medicine
DX: S40.012A Contusion of left shoulder, initial encounter (principal); I11.0 Hypertensive heart disease with heart failure; I50.32 Chronic diastolic (congestive) heart failure; J44.9 Chronic obstructive pulmonary disease, unspecified; I48.91 Unspecified atrial fibrillation; E11.9 Type 2 diabetes mellitus without complications; R79.1 Abnormal coagulation profile; E78.5 Hyperlipidemia, unspecified; M19.90 Unspecified osteoarthritis, unspecified site; Z79.01 Long term (current) use of anticoagulants; Z98.51 Tubal ligation status; Z86.73 Personal history of transient ischemic attack (TIA), and cerebral infarction without residual deficits; Z86.711 Personal history of pulmonary embolism; Z86.718 Personal history of other venous thrombosis and embolism; V43.52XA Car driver injured in collision with other type car in traffic accident, initial encounter
CPT/HCPCS: 36415; 73030; 85610; 99282

== ENCOUNTER → 2024-06-09 | Outpatient (CLI) | payer MEDICARE, OTHER, SELFPAY ==
[2024-06-09 14:55] LABS: International Normalized Ratio 1.2
== END | disposition home or self-care (01) ==
LOC: LAB 14:01
PROVIDERS: PCP Family Medicine Geriatric Medicine; Referring Provider Family Medicine Geriatric Medicine; Visit Provider Family Medicine Geriatric Medicine
DX: I48.91 Unspecified atrial fibrillation (principal)
CPT/HCPCS: 36415; 85610

== ENCOUNTER → 2024-07-01 | Outpatient (CLI) | payer MEDICARE, OTHER, SELFPAY ==
[2024-07-01 21:58] LABS: Amphetamine Urine NEGATIVE (<1000 ng/mL); Barbiturate Urine NEGATIVE (< 200 ng/mL); Benzodiazepine Urine NEGATIVE (< 200 ng/mL); Buprenorphine Urine NEGATIVE (< 200 ng/mL); Cocaine Urine NEGATIVE (< 300 ng/mL); Fentanyl, Urine NEGATIVE; Methadone Urine PRESUMPTIVE POSITIVE (< 300 ng/mL); Opiates Urine PRESUMPTIVE POSITIVE (< 300 ng/mL); Oxycodone, Urine NEGATIVE (< 100 ng/mL); PCP Urine NEGATIVE (< 25 ng/mL); THC Urine NEGATIVE (< 50 ng/mL)
== END | disposition home or self-care (01) ==
LOC: LAB 15:55
PROVIDERS: PCP Family Medicine Geriatric Medicine; Referring Provider Anesthesiology Pain Medicine; Visit Provider Anesthesiology Pain Medicine
DX: F11.20 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, 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 (principal)
CPT/HCPCS: 80307

== ENCOUNTER → 2024-08-20 | Outpatient (CLI) | payer MEDICARE, OTHER, SELFPAY ==
--- NOTE | 2024-08-20 08:40 | VDUE_ITS ---
Reason For Study Reason For Study: LUE Swelling Left Proximal Left jugular vein is spontaneous, widely patent, phasic, with no intraluminal echogenicity noted. Left subclavian vein is spontaneous, widely patent, phasic, with no intraluminal echogenicity noted. Left Arm Left axillary vein is spontaneous, patent, phasic, competent, compressible and demonstrates augmentation. Left brachial vein is compressible. Left cephalic vein is compressible. Left basilic vein is compressible. Left Lower Arm Left radial vein is compressible. Left ulnar vein is compressible. Procedure This was a unilateral left upper extremity venous doppler examination. Preliminary faxed to Dr. Lazcano office. VL/Venous Duplex US, Unilateral Interpretation Summary Deep veins of the left upper extremity are patent and compressible segmentally. There is no evidence of deep vein thrombosis. The superficial veins of the left upper extremity, the basilic and cephalic veins, are patent and compressible. There is no evidence of left upper extremity superficial thrombop hlebitis involving the veins imaged. Ordering Physician: Ruddy Corral Chi Referring Physician: Ruddy Corral Chi Performed By: Terell Dodd RVT ???
== END | disposition home or self-care (01) ==
LOC: CVS 08:39
PROVIDERS: PCP Family Medicine Geriatric Medicine; Referring Provider Family Medicine Geriatric Medicine; Visit Provider Family Medicine Geriatric Medicine
DX: M79.89 Other specified soft tissue disorders (principal); M79.642 Pain in left hand
CPT/HCPCS: 93971

== ENCOUNTER 2024-09-22 15:30 | Outpatient (RCR) | payer MEDICARE, OTHER, SELFPAY ==
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
== END 2024-09-22 19:00 | disposition home or self-care (01) ==
LOC: PT 15:30
PROVIDERS: PCP Family Medicine Geriatric Medicine; Referring Provider Anesthesiology Pain Medicine; Visit Provider Anesthesiology Pain Medicine
DX: M54.9 Dorsalgia, unspecified (principal); M79.609 Pain in unspecified limb
CPT/HCPCS: 97110; 97162; 97530

== ENCOUNTER → 2024-10-20 | Outpatient (CLI) | payer MEDICARE, OTHER, SELFPAY ==
[2024-10-20 15:07] LABS: Hematocrit 38.7 % (37-47); Hemoglobin 13.0 g/dL (12.0-15.0); Immature Granulocytes Count 0.050 X10^3/uL (0.0-0.0); Mean Corp Hgb Conc 33.6 g/dL (32-36); Mean Corpuscular Volume 96.0 fL (81-99); Mean Platelet Vol. 9.7 fl (6.2-12.0); NRBC Flagged by Analyzer 0 % (0-5); Platelet Count 188 K/mm3 (150-450); RBC Distribution Width CV 13.2 % (11.6-14.6); RBC Distribution Width SD 46.7 fl (35.1-43.9); Red Blood Count 4.03 M/mm3 (4.2-5.4); White Blood Count 5.0 K/mm3 (4.4-11.0)
[2024-10-20 16:47] LABS: AST(SGOT) 22 U/L (<=31); Alanine Aminotransfer ALT/SGPT 15 U/L (<=34); Albumin, Serum 3.8 g/dL (3.4-4.8); Alkaline Phosphatase 108 U/L (35-104); Anion Gap 14 (5-15); BUN 23 mg/dL (4-19); BUN/Creat Ratio 29.9 RATIO (10-20); Calcium,Total 8.9 mg/dL (7.6-11.0); Carbon Dioxide 20.6 mmol/L (21.0-32.0); Chloride 107 mmol/L (98-108); Cholesterol 230 mg/dL (<=200); Globulin 2.8 g/dL (2.2-4.2); Glucose 119 mg/dL (70-99); Low Density Lipoprotein Calc. 113 mg/dL; Potassium 4.0 mmol/L (3.3-5.1); Triglycerides 260 mg/dL; Very Low Density Lipoprotein 52 mg/dL (5-40); Vitamin D,25 Hydroxy 27.2 ng/mL (30-100); cholesterol:hdl ratio screen 3.56
[2024-10-20 18:20] LABS: Creatinine, Urine (random) 160.00 mg/dL (28.00-217.00); Microalbumin,Random Urine 28.7 mg/L (<20 mg/L)
[2024-10-20 22:30] LABS: Xtra Tube Kwok EXTRA TUBE
== END | disposition home or self-care (01) ==
LOC: POLAB3 14:27
PROVIDERS: PCP Family Medicine Geriatric Medicine; Visit Provider Family Medicine Geriatric Medicine
DX: E11.22 Type 2 diabetes mellitus with diabetic chronic kidney disease (principal); I12.9 Hypertensive chronic kidney disease with stage 1 through stage 4 chronic kidney disease, or unspecified chronic kidney disease; N18.9 Chronic kidney disease, unspecified; E78.5 Hyperlipidemia, unspecified; E55.9 Vitamin D deficiency, unspecified
CPT/HCPCS: 36415; 80053; 80061; 82043; 82306; 82570; 83036; 84443; 85025

== ENCOUNTER → 2025-02-16 | Outpatient (CLI) | payer MEDICARE, OTHER, SELFPAY ==
[2025-02-16 14:06] LABS: Prothrombin Time (Protime)PT. 43.4 SECONDS (11.7-14.9)
== END | disposition home or self-care (01) ==
LOC: POLAB3 13:38
PROVIDERS: PCP Family Medicine Geriatric Medicine; Visit Provider Family Medicine Geriatric Medicine
DX: I48.91 Unspecified atrial fibrillation (principal); Z79.01 Long term (current) use of anticoagulants
CPT/HCPCS: 36415; 85610

== ENCOUNTER → 2025-02-19 | Outpatient (CLI) | payer MEDICARE, OTHER, SELFPAY ==
--- OUTSIDE RECORDS SUMMARY | 2025-02-19 09:47 | XMS RPT_ITS | CCD ---
Author Organization [facility] Care Team Providers Care Api Architect Name Role Phone Jesse Lemus Unavailable Vivas, Sanaz N Unavailable Vivas, Sanaz N Unavailable Vivas, Sanaz N Unavailable Vivas, Sanaz N Unavailable Vivas, Sanaz N Unavailable Vivas, Sanaz N Unavailable Tory King Unavailable Jesse Lemus Unavailable Richard KRUEGER, Leena Kilpatrick Unavailable SAKINA CORRAL Primary Care Provider DO BELA ROPER Emergency Provider MD ADRIANE WAYNE Admit Provider MD ADRIANE WAYNE Attending Provider [phone] MD NICKOLAS [facility] Other Provider Pcp, No Primary Care Provider Dr. Ruddy Crandall Chi Primary Care Provider Dr. Ruddy Corral Chi Referring Provider Dr. Tulio Licea Attending Provider Dr. Gavin Britton Attending Provider Unavailable Primary Care Provider UnavailMIRLANDE Frederick Referring Unavailable Lele Sumner Unavailable Dr. Ruddy Corral Chi Primary Care Provider Dr. Ruddy Corral Chi Referring Provider Papa FOREIGN TRADE TEACHER, FOREIGN TRADE TEACHERShaylaC Karrie Attending Provider Ellis, Ruddy Chi Primary Care Provider [phone] ILYA, PHOEBE Attending Unavailable ILYA, PHOEBE Attending Unavailable ILYA, PHOEBE Attending Unavailable ILYA, PHOEBE Attending Unavailable ILYA, PHOEBE Attending Unavailable ILYA, PHOEBE Attending Unavailable ILYA, PHOEBE Attending Unavailable ELLIS, RUDDY CHI Primary Care Unavailable MAMMO, ISHAN A Attending Unavailable SELF Referring Unavailable ELLIS, RUDDY CHI Primary Care Unavailable ILYA, PHOEBE Attending Unavailable ELLIS, RUDDY CHI Primary Care Unavailable ILYA, PHOEBE Attending Unavailable Ellis , Dr. Ruddy Mclain Primary Care Provider [phone] Ellis KRUEGER, Dr. Ruddy Mclain Attending Provider Ellis KRUEGER, Dr. Ruddy Mclain Referring Provider Ellis KRUEGER, Dr. Ruddy Mclain Primary Care Provider [phone] Ellis KRUEGER, Dr. Ruddy Mclain Attending Provider Ellis KRUEGER, Dr. Ruddy Mclain Referring Provider Dr. Warren Dior DO Emergency Provider Dr. Warren Dior DO Attending Provider Jada KRUEGER, Dr. Mariano Attending Provider [phone] Jada KRUEGER, Dr. Mariano Referring Provider Ellis KRUEGER, Dr. Ruddy Mclain Primary Care Provider [phone] Ellis KRUEGER, Dr. Ruddy Mclain Attending Provider Ellis KRUEGER, Dr. Ruddy Mclain Referring Provider Ellis KRUEGER, Dr. Ruddy Mclain Primary Care Provider [phone] Ellis KRUEGER, Dr. Ruddy Mclain Attending Provider Ellis KRUEGER, Dr. Ruddy Mclain Referring Provider Rivka KRUEGER, Dr. Agustin Mckinney Attending Provider Ellis, Ruddy Chi Primary Care Unavailable Montserrat Welsh Attending Unavailable Montserrat Welsh Referring Unavailable Ellis, Ruddy Chi Primary Care Unavailable KirstenSawyer timmons Attending Unavailable Ellis, Ruddy Chi Primary Care Unavailable Karrie Elam NP Attending Unavailable Ellis, Ruddy Chi Consulting Unavailable Ellis, Ruddy Chi Primary Care Unavailable Ellis, Ruddy Chi Referring Unavailable Devorah Suresh Attending Unavailable Ellis, Ruddy Chi Primary Care Unavailable Warren Dior Attending Unavailable Ellis, Ruddy Chi Referring Unavailable Ellis, Ruddy Chi Primary Care Unavailable Ellis, Ruddy Chi Attending Unavailable Ellis, Ruddy Chi Referring Unavailable Ellis, Ruddy Chi Primary Care Unavailable Ellis, Ruddy Chi Attending Unavailable Basali, Ayman Attending Unavailable Ellis, Ruddy Chi Primary Care Unavailable Basali, Ayman Referring Unavailable Ellis, Ruddy Chi Referring Unavailable Ellis, Ruddy Chi Primary Care Unavailable Ellis, Ruddy Chi Attending Unavailable Ellis, Ruddy Chi Primary Care Unavailable Ellis, Ruddy Chi Attending Unavailable Ellis, Ruddy Chi Primary Care Unavailable Ellis, Ruddy Chi Referring Unavailable Ellis, Ruddy Chi Attending Unavailable Ellis, Ruddy Chi Primary Care Unavailable Ellis, Ruddy Chi Attending Unavailable Basali, Ayman Attending Unavailable Ellis, Ruddy Chi Primary Care Unavailable Basali, Ayman Referring Unavailable Ellis, Ruddy Chi Primary Care Unavailable Ellis, Ruddy Chi Referring Unavailable Ellis, Ruddy Chi Attending Unavailable Ellis, Ruddy Chi Primary Care Unavailable Ellis, Ruddy Chi Attending Unavailable Ellis, Ruddy Chi Primary Care Unavailable Ellis, Ruddy Chi Referring Unavailable Ellis, Ruddy Chi Attending Unavailable Allergies Allergy Classification Reported Allergen(s) Allergy Type Date of Onset Reaction(s) Facility (20 sources) flecainide; Translations: [FLECAINIDE] drug allergy 08-17-2010 [facility] Work Phone: (1 source) FLECINIDE drug allergy 01-04-2021 [facility] Work Phone: Medications Current Medications Medication Drug Class(es) Dates Sig (Normalized) Sig (Original) acetaminophen 325 mg / HYDROcodone bitartrate 5 mg oral tablet (20 sources) Opioid Agonist Start: 03-01-2019 End: 10-27-2020 Hydrocodone-Acetam inophen 5-325 mg tablet Active 1 {tbl} PO TWICE A DAY October 27, 2020 10:59am BACK PAIN Start: 03-01-2019 End: 10-27-2020 take 1 tablet by mouth twice daily Hydrocodone-Acetaminophen Active 1 TABLE T PO TWICE A DAY October 27, 2020 10:59am Start: 07-23-2018 End: 10-16-2018 Hydrocodone-Acetaminophen (N orco) 5-325 mg tablet Discontinued 2 {tbl} PO EVERY 6 HOURS 0 July 23, 2018 12:00am October 16, 2018 3:06pm Comment on above: Take 1 tablet by kraig twice daily. [id number] 200 actuat albuterol 0.09 mg/actuat metered dose inhaler (20 sources) beta2-Adrenergic Agonist Start: 09-16-2021 Albuterol Sulfate (Proair Hfa) 8.5 GM Hfa.Aer.Ad Active 2 PUFF IN Q4H September 16, 2021 12:00am Start: 04-20-2017 Albuterol Sulf ate 1 INHALER inhaler Active 2 NMA INHALATION EVERY 4 HOURS NEEDED as needed for COUGH/WHEEZE April 20, 2017 1:00am Start: 04-20-2017 take 1 puff(s) by in halation every four hours as needed Albuterol Sulfate Active 2 PUFF INHALATION EVERY 4 HOURS NEEDED April 20, 2017 1:00am Start: 02-29-2016 VENTOLIN HFA 1 08 (90 Base) MCG/ACT AERS As needed - 90mcg/inh ALBUTEROL SULFATE [id number] Tulio Licea MD Start: 02-29-2016 VENTOLIN HFA 1 08 (90 Base) MCG/ACT AERS As needed - 90mcg/inh ALBUTEROL SULFATE [id number] Tulio Licea MD take 2 puff(s) by in halation every four hours VENTOLIN HFA 108 (90 Base) MCG/ACT AERS 2 puff using inhaler every four hours albuterol sulfate [id number] Opal Orozco LPN ascorbic acid 113 mg / beta carotene 7160 mg / cuprous oxide 0.4 mg / dl-alpha tocopheryl acetate 100 unt / zinc oxide 17.4 mg oral tablet (4 sources) Vitamin C Start: 09-16-2021 Vit A/Vit C/Vi t E/Zinc/Copper (Preservision Areds Tablet) 1 EACH Tablet Active 1 TAB PO Daily September 16, 2021 12:00am 120 actuat budesonide 0.16 mg/actuat / formoterol fumarate 0.0045 mg/actuat metered dose inhaler (20 sources) Corticosteroid, beta2-Adrenergic Agonist Start: 04-20-2017 Budesonide-Formotero l 1 INHALER inhaler Active 2 NMA INHALATION TWICE A DAY April 20, 2017 1:00am copd Start: 04-20-2017 take 1 puff(s) by in halation twice daily Budesonide-Formoterol Active 2 PUFF INHALATION TWICE A DAY April 20, 2017 1:00am Start: 01-06-2013 take 2 puff(s) by in halation twice daily budesonide-formoterol 160-4.5 mcg/actuation inhaler Inhale 2 Puffs as instructed twice daily. 0 01/06/2013 Active take 2 puff(s) by in halation twice daily SYMBICORT 160-4.5 MCG/ACT AERO 2 puff using inhaler twice a day budesonide-formoterol [id number] Opal Orozco LPN Comment on above: Inhale 2 Puffs as in structed twice daily. CPAP/BIPAP/OTHER (20 sources) Start: 07-19-2022 End: 12-03-2049 CPAP/BIPAP/OTHER Indications: Obstructive sleep apnea Type .CPAPSettings into a note to see current settings/supplies/DME information. 1 Each 0 07/19/2022 12/03/2049 Active Start: 04-20-2022 End: 09-04-2049 CPAP/BIPAP/OTHER Indications : Obstructive sleep apnea Type .CPAPSettings into a note to see current settings/supplies/DME information. 1 Each 0 04/20/2022 09/04/2049 Active Start: 12-13-2021 End: 04-29-2049 CPAP/BIPAP/OTHER Indications : Obstructive sleep apnea Type .CPAPSettings into a note to see current settings/supplies/DME information. 1 Each 0 12/13/2021 04/29/2049 Active Comment on above: Type .CPAPSettings i nto a note to see current settings/supplies/DME information. 24 hr metoprolol succinate 25 mg extended release oral tablet (20 sources) beta-Adrenergic Julio Cesar Start: 09-17-19 take 1 tablet by mouth twice daily Metoprolol Succinate (Toprol Xl 25 Mg Tablet) 25 MG Tablet Active 25 MG PO Two Times A Day September 16, 2021 12:00am Start: 10-29-2018 take 1 tablet by kraig th twice daily Metoprolol Tartrate 25 mg tablet Active 25 mg PO TWICE A DAY October 29, 2018 12:00am Start: 10-14-2018 End: 10-16-2018 take 1 tablet by mouth once daily Metoprolol Tartrate 50 mg tablet Discontinued 50 mg PO DAILY October 14, 2018 12:00am October 16, 2018 3:06pm Start: 12-03-2012 End: 01-22-2014 take 1 tablet by mouth once daily Metoprolol Tartrate 25 MG tablet Discontinued 25 mg PO DAILY December 23, 2012 12:00am January 22, 2014 11:12am take 1 tablet by kraig twice daily METOPROLOL SUCCINATE ER 25 MG [id number] 1 tablet by mouth twice a day metoprolol succinate [id number] Opal Orozco LPN Comment on above: Take 1 tablet by kraig once daily. Multivitamin preparation (11 sources) Start: 03-14-2022 take 1 tablet by mouth once daily Multivitamin Active 1 TABLET PO DAILY March 14, 2022 1:00am Start: 03-14-2022 take 1 tablet by kraig th once daily Multivitamin Active 1 TABLET PO DAILY March 14, 2022 12:00am take 1 tablet by kraig once daily MULTI-VITAMINS TABS 1 tablet by mouth once a day multivitamin [id number] Opal Orozco LPN Multivitamin tablet (8 sources) Start: 03-14-2022 Multivitamin t ablet Active 1 {tbl} PO DAILY March 14, 2022 1:00am Start: 03-14-2022 Multivitamin t ablet Active 1 {tbl} PO DAILY March 14, 2022 12:00am olmesartan medoxomil 40 mg oral tablet (20 sources) Angiotensin 2 Receptor Julio Cesar Start: 04-23-2019 take 1 tablet by mouth once daily Olmesartan 40 mg tablet Active 40 mg PO DAILY April 23, 2019 1:00am rosuvastatin calcium 40 mg oral tablet (18 sources) HMG-CoA Reductase Inhibitor Start: 03-14-2022 take 1 tablet by mouth once daily Rosuvastatin 40 mg tablet Active 40 mg PO DAILY March 14, 2022 1:00am saccharomyces boulardii 250 mg oral capsule (4 sources) Start: 09-22-2021 take 1 capsule by mouth twice daily Saccharomyces Boulardii (Florastor 250 Mg Capsule) 250 MG Capsule Active 500 MG PO Two Times A Day 56 14 September 22, 2021 12:00am solifenacin succinate 5 mg oral tablet (20 sources) Cholinergic Muscarinic Antagonist Start: 03-14-2022 take 1 tablet by mouth once daily Solifenacin 5 mg tablet Active 5 mg PO DAILY March 14, 2022 1:00am Start: 09-16-2021 take 1 tablet by kraig th once daily Solifenacin Succinate (Vesicare) 5 MG Tablet Active 5 MG PO Daily September 16, 2021 12:00am Start: 05-20-2020 End: 03-14-2022 take 2 tablets by mouth once daily Solifenacin 10 mg tablet Discontinued 20 mg PO DAILY May 20, 2020 12:00am March 14, 2022 3:00pm Start: 05-20-2020 End: 03-14-2022 take 20 mg by mouth once daily Solifenacin Discontinue d 20 MG PO DAILY May 20, 2020 12:00am March 14, 2022 3:00pm Start: 02-29-2016 End: 05-20-2020 take 1 tablet by mouth once daily Solifenacin 5 MG tablet Discontinued 5 mg PO DAILY February 11, 2018 1:00am May 20, 2020 10:33am overactive bladder Start: 12-03-2012 End: 12-23-2012 take 1 tablet by mouth once daily Solifenacin (Vesicare) 5 MG tablet Discontinued 5 mg PO DAILY December 03, 2012 12:00am December 23, 2012 3:02pm sulfamethoxazole 800 mg / trimethoprim 160 mg oral tablet (4 sources) Dihydrofolate Reductase Inhibitor Antibacterial, Sulfonamide Antimicrobial Start: 09-22-2021 Sulfamethoxazole/Trimethopri m (Sulfamethoxazole-Tmp Ds Tablet) 1 EACH Tablet Active 1 EACH PO Two Times A Day 14 September 22, 2021 12:00am traZODone hydrochloride 100 mg oral tablet (20 sources) Serotonin Reuptake Inhibitor Start: 03-14-2022 take 1 tablet by mouth at bedtime Trazodone 100 mg tablet Active 100 mg PO AT BEDTIME March 14, 2022 1:00am Start: 02-11-2018 End: 03-14-2022 take 1 tablet by mouth at bedtime Trazodone 50 MG tablet Discontinued 50 mg PO AT BEDTIME February 11, 2018 1:00am March 14, 2022 3:02pm depression/ sleep Vitamins A,C,L-Rlaz-Vrpujz (12 sources) Start: 04-20-2017 Vitamins A,C,E -Zinc-Copper Active 1 EACH PO DAILY April 20, 2017 12:00am Start: 04-20-2017 Vitamins A,C,E -Zinc-Copper Active 1 EACH PO DAILY April 20, 2017 1:00am Vitamins A,C,A-Crir-Dhcxpx 1 EACH capsule (8 sources) Start: 04-20-2017 take 1 capsule by mouth once daily Vitamins A,C,Y-Iqcc-Lvbsxa 1 EACH capsule Active 1 NMA PO DAILY April 20, 2017 1:00am vision vitamin Start: 04-20-2017 take 1 capsule by mo ut once daily Vitamins A,C,T-Mxxh-Kufvzl 1 EACH capsule Active 1 NMA PO DAILY April 20, 2017 1:00am Start: 04-20-2017 take 1 capsule by mo uth once daily Vitamins A,C,E-Hrdd-Rroggk 1 EACH capsule Active 1 NMA PO DAILY April 20, 2017 12:00am vortioxetine 20 mg oral tablet (20 sources) Start: 04-20-2017 End: 10-27-2020 take 1 tablet by mouth once daily Vortioxetine 20 mg tablet Active 20 mg PO DAILY October 27, 2020 11:00am depression warfarin sodium 5 mg oral tablet (20 sources) Vitamin K Antagonist Start: 09-16-2021 take 1 tablet by mouth at bedtime Warfarin Sodium (Coumadin 6 Mg Tablet) 6 MG Tablet Active 6 MG PO Bedtime September 16, 2021 12:00am Start: 03-01-2019 End: 06-09-2022 Warfarin 1 MG tablet Discont inued 1 mg PO every Sunday, , , Sat March 01, 2019 1:00am June 09, 2022 10:13am PULMONARY EMBOLISM/DVT GIVE WITH 7.5MG TO =8.5MG SUTUTHSA Please contact the information source for Protocol details. Start: 03-01-2019 End: 06-09-2022 Warfarin 4 MG tablet Discont inued 4 mg PO MOWEFR March 01, 2019 1:00am June 09, 2022 10:13am PULMONARY EMBOLISM/ DVT GIVE WITH 5MG MOWEFR TO = 9MG Please contact the information source for Protocol details. Start: 03-01-2019 End: 06-09-2022 Warfarin 5 MG tablet Discont inued 5 mg PO MOWEFR March 01, 2019 1:00am June 09, 2022 10:13am PULMONARY EMBOLISM/ DVT GIVE WITH 4MG MOWEFR TO = 9MG Please contact the information source for Protocol details. Start: 03-01-2019 End: 04-23-2019 Warfarin 7.5 MG tablet Disco ntinued 7.5 mg PO every Sunday, , , SunMarch 01, 2019 1:00am April 23, 2019 9:32am PULMONARY EMBOLISM/ DVT GIVE WITH 1MG TO =8.5MG SUTUTHSA Start: 04-20-2017 End: 05-16-2017 Warfarin 10 MG tablet Discon tinued 11 mg PO DAILY April 20, 2017 1:00am May 16, 2017 5:44pm Start: 04-20-2017 End: 05-16-2017 take 11 mg by mouth once daily Warfarin Discontinued 1 1 MG PO DAILY April 20, 2017 1:00am May 16, 2017 5:44pm Start: 12-18-2012 take 1 tablet by kraig th once daily Warfarin 5 mg tablet Active 5 mg PO DAILY June 09, 2022 12:00am MANAGED BY DR. CORRAL Start: 12-18-2012 take 1 tablet by kraig th once daily warfarin (COUMADIN) 4 mg tablet Take 1 tablet by mouth once daily. 9 mg daily 0 12/18/2012 Active Start: 08-17-2010 End: 09-20-2011 take 2 tablets by mouth once daily in the evening COUMADIN 4 MG TABS 2 tablets by mouth every evening to = 8mg WARFARIN SODIUM [id number] Ashley Garcia Start: 08-17-2010 End: 09-20-2011 COUMADIN 5 MG TABS managed b aurelio Corral WARFARIN SODIUM [id number] Tulio Licea MD Comment on above: Take 1 tablet by kraig th daily as directed. 9 mg daily Take 1 tablet by kraig th once daily. 9 mg daily Completed/Discontinued Medications Medication Drug Class(es) Dates Sig (Normalized) Sig (Original) acetaminophen 500 mg oral tablet (20 sources) Start: 03-22-2018 End: 03-27-2018 take 1 tablet by mouth every four hours as needed for pain Acetaminophen 500 MG tablet Discontinued 500 mg PO EVERY 4 HOURS NEEDED as needed for Pain 20 5 0 March 22, 2018 1:00am March 26, 2018 1:00am March 27, 2018 1:07am acetaminophen 325 mg / oxyCODONE hydrochloride 7.5 mg oral tablet (20 sources) Opioid Agonist Start: 02-11-2018 End: 02-13-2018 Oxycodone-Acetamino phen 1 EACH tablet Discontinued 0 NMA PO EVERY 6 HOURS NEEDED as needed for Pain 14 4 0 February 11, 2018 2:57pm February 14, 2018 1:00am February 13, 2018 9:16am Calculus of left kidney Calculus of kidney Start: 02-11-2018 End: 02-13-2018 Oxycodone-Acetaminophen Disc ontinued 0 EACH PO EVERY 6 HOURS NEEDED 14 4 February 11, 2018 2:57pm February 13, 2018 9:16am Start: 09-22-2016 take 1-2 tablets by mouth every eight hours as needed OXYCODONE-ACETAMINOPHEN 5-325 MG TABS 1- 2 po q8h prn OXYCODONE-ACETAMINOPHEN [id number] Jesse Lmeus 0.05 ml aflibercept 40 mg/ml injection (2 sources) Vascular Endothelial Growth Factor Inhibitor Start: 04-24-2023 End: 04-24-2023 aflibercept intravitreal injection 2 mg/0.05 mL (EYLEA) Start: 02-06-2023 End: 02-06-2023 aflibercept intravitreal inj ection 2 mg/0.05 mL (EYLEA) ALPRAZolam 0.5 mg oral tablet (20 sources) Benzodiazepine Start: 02-29-2016 End: 08-31-2016 XANAX 0.5 MG TABS as needed ALPRAZOLAM [id number] Tulio Licea MD armodafinil 200 mg oral tablet (20 sources) Start: 06-22-2015 End: 08-31-2016 take 1 tablet by mouth once daily armodafinil (NUVIGIL) 200 mg tab Indications: TEETEE (obstructive sleep apnea) Take 200 mg by mouth once daily. 30 tablet 5 06/22/2015 Active Start: 12-23-2012 End: 12-24-2012 Armodafinil (Nuvigil) 150 MG tablet Discontinued 150 mg PO December 23, 2012 12:00am December 24, 2012 12:59am Comment on above: Take 200 mg by mouth once daily. MULTIPLE VITAMINS-MINERALS (4 sources) Vitamin C Start: 1 take 1 tablet by mouth once daily PRESERVISION/LUTEIN CAPS One tablet by mouth daily MULTIPLE VITAMINS-MINERALS [id number] Tulio Licea MD atorvastatin 40 mg oral tablet (20 sources) HMG-CoA Reductase Inhibitor Start: 9 End: 0 take 1 tablet by mouth at bedtime Atorvastatin 40 mg tablet Discontinued 40 mg PO AT BEDTIME October 16, 2018 3:04pm April 23, 2019 9:30am cholesterol Start: 10-14-2018 End: 10-16-2018 Atorvastatin 40 mg tablet Discontinued 20 mg PO AT BEDTIME October 14, 2018 6:38pm October 16, 2018 3:07pm Start: 10-14-2018 End: 10-16-2018 take 20 mg by mouth at bedtime Atorvastatin Discontinu ed 20 MG PO AT BEDTIME October 14, 2018 6:38pm October 16, 2018 3:07pm Start: 03-06-2018 End: 10-14-2018 take 1 tablet by mouth at bedtime Atorvastatin 40 MG tablet Discontinued 40 mg PO AT BEDTIME March 06, 2018 1:00am October 14, 2018 6:40pm Start: 02-10-2008 End: 03-14-2022 take 1 tablet by mouth at bedtime Atorvastatin 20 MG tablet Discontinued 20 mg PO AT BEDTIME December 03, 2012 12:00am December 23, 2012 3:02pm Comment on above: Take one(1) tablet d aily. benoxinate hydrochloride 4 mg/ml / fluorescein sodium 3 mg/ml ophthalmic solution (3 sources) Diagnostic Dye Start: 06-12-2023 End: 06-13-2023 fluorescein-benoxi veronica 0.3-0.4 % 1 Drop (FLURESS) Start: 04-24-2023 End: 04-25-2023 fluorescein-benoxinate 0.3-0 .4 % 1 Drop (FLURESS) Start: 05-09-2022 End: 05-09-2022 fluorescein-benoxinate 0.25- 0.4 % 1 Drop (FLURESS) bevacizumab intravitreal syr rajendra 2.5 mg/0.1 mL (5 sources) Start: 10-17-2022 End: 10-17-2022 bevacizumab intravitreal syringe 2.5 mg/0.1 mL Start: 09-05-2022 End: 09-05-2022 bevacizumab intravitreal syr rajendra 2.5 mg/0.1 mL Start: 08-01-2022 End: 08-01-2022 bevacizumab intravitreal syr rajendra 2.5 mg/0.1 mL Start: 06-27-2022 End: 06-27-2022 bevacizumab intravitreal syr rajendra 2.5 mg/0.1 mL Start: 05-09-2022 End: 05-09-2022 bevacizumab intravitreal syr rajendra 2.5 mg/0.1 mL buPROPion (5 sources) Aminoketone bupropion HCl (WELLBUTRIN ORAL) Take by mouth. 0 Active Comment on above: Take by mouth. calcium carbonate 500 mg chewable tablet (20 sources) Start: 03-01-2019 End: 04-23-2019 take 1 tablet by mouth every four hours as needed Calcium Carbonate 200 MG tablet,chewable Discontinued 200 mg PO EVERY 4 HOURS NEEDED as needed for Indigestion March 01, 2019 1:00am April 23, 2019 9:31am Start: 02-10-2008 take 1 tablet by mouth once da bambi Calcium Carbonate 600 mg calcium (1,500 mg) tablet Active 600 mg PO DAILY April 23, 2019 1:00am Start: 02-10-2008 take 2 tablets by mo [facility] once daily Calcium Carbonate (Calcium) 600 MG Tablet Active 2 TAB PO Daily September 16, 2021 12:00am Comment on above: Take two(2) tablets daily. calcium carbonate / vitamin D (19 sources) Start: 08-17-2010 take 1 tablet by mouth twice daily CALCIUM CARBONATE-VITAMIN D 600-125 MG-UNIT TABS One tablet by mouth twice daily CALCIUM CARBONATE-VITAMIN D [id number] Ashley Garcia Start: 08-17-2010 take 1 tablet by kraig th twice daily CALCIUM CARBONATE-VITAMIN D 600-125 MG-UNIT TABS One tablet by mouth twice daily CALCIUM CARBONATE-VITAMIN D [id number] Ashley Garcia calcium citrate 1500 mg / cholecalciferol 250 unt oral tablet (20 sources) Vitamin D Start: 03-01-2019 End: 04-23-2019 Calcium Citrate-Vitamin D3 1 EACH tablet Discontinued 1 NMA PO TWICE A DAY March 01, 2019 1:00am April 23, 2019 9:31am SUPPLEMENT Start: 03-01-2019 End: 04-23-2019 Calcium Citrate-Vitamin D3 D iscontinued 1 EACH PO TWICE A DAY March 01, 2019 1:00am April 23, 2019 9:31am celecoxib 200 mg oral capsule (20 sources) Nonsteroidal Anti-inflammatory Drug Start: 08-17-2010 End: 09-22-2021 take 1 capsule by mouth once daily Celecoxib 200 MG capsule Discontinued 200 mg PO DAILY December 03, 2012 12:00am December 23, 2012 3:02pm Comment on above: Take 1 capsule by mouth once daily. CPAP (17 sources) Start: 12-15-2014 CPAP autoPAP 13-20 cmH2O, mask, tubing, filters, heated humidity, lifetime supplies. Please fax 710 compliance download to [phone] ([employer]). Dx: TEETEE 1 Units 0 12/15/2014 Active Comment on above: autoPAP 13-20 cmH2O, mask, tubing, filte rs, heated humidity, lifetime supplies. Please fax 7-10 compliance download to [phone] ([employer]). Dx: TEETEE DULoxetine 30 mg delayed release oral capsule (20 sources) Serotonin and Norepinephrine Reuptake Inhibitor Start: 02-29-2016 take 1 tablet by mouth twice daily CYMBALTA 30 MG CPEP One tablet by mouth twice daily DULOXETINE HCL [id number] Tulio Licea MD Start: 12-24-2012 End: 03-23-2016 take 1 capsule by mouth once daily Duloxetine 30 MG capsule Discontinued 30 mg PO DAILY 30 0 December 24, 2012 12:00am March 23, 2016 10:03am 0.3 ml enoxaparin sodium 100 mg/ml prefilled syringe (20 sources) Low Molecular Weight Heparin Start: 01-21-2014 End: 01-22-2014 Enoxaparin 30 MG/0.3 ML syringe Discontinued 30 mg SC DAILY@0600 10 0 January 21, 2014 1:00am January 22, 2014 11:13am ergocalciferol [id number] unt oral tablet (19 sources) Provitamin D2 Compound Start: 02-29-2016 take 1 tablet by mouth every month VITAMIN D (ERGOCALCIFEROL) 62108 UNIT CAPS One tablet by mouth every month ERGOCALCIFEROL [id number] Tulio Licea MD Start: 02-29-2016 take 1 tablet by kraig th every month VITAMIN D (ERGOCALCIFEROL) 71445 UNIT CAPS One tablet by mouth every month ERGOCALCIFEROL [id number] Tulio Licea MD hydroCHLOROthiazide 12.5 mg / olmesartan medoxomil 40 mg oral tablet (20 sources) Thiazide Diuretic, Angiotensin 2 Receptor Julio Cesar Start: 02-11-2018 End: 04-23-2019 Olmesartan-Hydrochlorothiazi de 1 TAB tablet Discontinued 1 {tbl} PO DAILY February 11, 2018 1:00am April 23, 2019 9:29am high blood pressure 40MG Start: 12-03-2012 End: 12-23-2012 take 1 tablet by mouth once daily Olmesartan/Hydrochlorothiazide (Benicar Hct 40-12.5 Mg Tab) 1 TAB tablet Discontinued 1 {tbl} PO DAILY December 03, 2012 12:00am December 23, 2012 3:02pm Start: 08-17-2010 take 1 tablet by kraig th once daily BENICAR HCT 40-12.5 MG TABS One tablet b y mouth daily OLMESARTAN MEDOXOMIL-HCTZ [id number] Omar Jimenez Start: 08-17-2010 take 1 tablet by kraig th once daily BENICAR HCT 40-12.5 MG TABS One tablet b y mouth daily OLMESARTAN MEDOXOMIL-HCTZ [id number] Ashley Garcia Start: 02-10-2008 End: 04-23-2019 take 1 tablet by mouth once daily Olmesartan/Hydrochlorothiazide (Benicar Hct 40-12.5 Mg Tab) 1 TAB tablet Discontinued 1 {tbl} PO DAILY December 02, 2012 11:00pm December 23, 2012 2:02pm Comment on above: Take one(1) tablet d aily. levoFLOXacin 750 mg oral tablet (20 sources) Quinolone Antimicrobial Start: 03-03-19 End: 04-23-19 take 1 tablet by mouth once daily Levofloxacin 750 MG tablet Discontinued 750 mg PO DAILY 5 0 March 03, 2019 1:00am April 23, 2019 9:32am lutein 6 mg oral capsule (20 sources) Start: 10-15-19 End: 10-17-19 take 1 capsule by mouth twice daily Lutein 6 mg capsule Discontinued 6 mg PO TWICE A DAY October 14, 2018 12:00am October 16, 2018 3:06pm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 determinationOrdered By: Ruddy Corral on 04-21-2024 MCV (RBC) [Entitic vol] 98.2 fL 81-99 [facility] Mean corpuscular hemoglobin (MCH) determinationOrdered By: [facility] on 04-21-2024 MCH (RBC) [Entitic mass] 32.6 pg High 27.0-32.[address] [facility] Mean corpuscular hemoglobin concentration (MCHC) determinationOrdered By: [facility] 04-21-2024 MCHC (RBC) [Mass/Vol] 33.2 g/dL 32-36 [facility] Mean platelet volume determi nationOrdered By: Ruddy Corral on 04-21-2024 Platelet mean volume (Bld) [Entitic vol] 9.9 fL 6.2-12.[address] [facility] Microalb:Creat Ratio,Random URon 04-21-2024 Creatinine [Mass/Vol] 190.00 mg/dL Normal NO RAN GE EST. [facility] Comment on above: Performed By: #### L 500.2500, L501.5425 #### [facility] [address] [place], [place], [id number] MALB:CRE 20.4 mg/g CRE Normal <30 mg/g CRE [facility] Comment on above: Performed By: #### L 500.2500, L501.5425 #### [facility] [address] [place], [place], [id number] MICROALBUMIN,UR 38.7 mg/L Normal NO RANGE EST. [facility] Comment on above: Performed By: #### L 500.2500, L501.5425 #### [facility] [address] [place], [address] Monocyte percentageOrdered B y: Ruddy Corral on 04-21-2024 Monocytes/100 WBC (Bld) 9.3 % 0-10 [facility] Neutrophil percentageOrdered By: Ruddy Corral on 04-21-2024 Neutrophils/100 WBC (Bld) 58.9 % 47-[address] [facility] Nucleated red blood cell per centageOrdered By: Ruddy Corral on 04-21-2024 Nucleated RBC/100 WBC (Bld) [Ratio] 0 % 0-[address] [facility] Platelet countOrdered By: Steven Corral on 04-21-2024 Platelets (Bld) [#/Vol] 192 10*3/uL 150-[address] [facility] Potassium measurementOrdered By: Ruddy Corral on 04-21-2024 Potassium [Moles/Vol] 3.8 mmol/L 3.5-5.1 [facility] RBC Auto (Bld) [#/Vol]Ordere d By: Ruddy Corral on 04-21-2024 RBC (Bld) [#/Vol] 4.57 10*6/uL 4.2-5.[address] [facility] Random urine microalbumin me asurementOrdered By: Ruddy Corral on 04-21-2024 Urine Random Microalbumin 38.7 mg/L NO RANGE EST. [facility] Serum anion gap measurementO rdered By: Ruddy Corral 04-21-2024 Anion gap [Moles/Vol] 8 mmol/L 5-15 [facility] Serum globulin measurementOr dered By: Ruddy Corral 04-21-2024 Globulin (S) [Mass/Vol] 3.6 g/dL 2.2-4.2 [facility] Serum or plasma alanine gomez otransferase (ALT) measurementOrdered By: Ruddy Corral 04-21-2024 ALT [Catalytic activity/Vol] 20 U/L 13-[address] [facility] Serum or plasma albumin nunu urement (mass/volume)Ordered By: Ruddy Corral 04-21-2024 Albumin [Mass/Vol] 3.8 g/dL 3.2-5.0 [facility] Serum or plasma alkaline kathryn sphatase measurementOrdered By: Ruddy Corral 04-21-2024 ALP [Catalytic activity/Vol] 105 U/L 45-[address] [facility] Serum or plasma calcium nunu urement (mass/volume)Ordered By: Ruddy Corral on 04-21-2024 Calcium [Mass/Vol] 9.3 mg/dL 8.5-10.1 [facility] Serum or plasma cholesterol measurement (mass/volume)Ordered By: Ruddy Corral on 04-21-2024 Cholesterol [Mass/Vol] 241 mg/dL High <200 [facility] Comment on above: <200 mg/dL Desirable 200-240 mg/dL Borderline >240 mg/dL High Risk Serum or plasma creatinine m easurement (mass/volume)Ordered By: Ruddy Corral on 04-21-2024 Creatinine [Mass/Vol] 0.97 mg/dL 0.55-1.02 [facility] Comment on above: The validity of the calculated GFR & GFRAA in patients over 70 years has not been determined. Clinical correlation is essential. Serum or plasma thyroid stim ulating hormone (TSH) measurement (units/volume)Ordered By: Ruddy Corral on 04-21-2024 TSH Qn 1.670 uIU/mL 0.358-3.[address] [facility] Serum or plasma urea nitroge n measurement (mass/volume)Ordered By: Ruddy Corral on 04-21-2024 Urea nitrogen [Mass/Vol] 17 mg/dL 7-[address] [facility] Sodium levelOrdered By: Ruddy Corral 04-21-2024 Sodium [Moles/Vol] 140 mmol/L 136-145 [facility] TSH QnOrdered By: Ruddy Corral o n 04-21-2024 Thyroid Stimulating Hormone (TSH) 1.670 uIU/mL 0.358-3.[address] [facility] Thyroid Stim Hormone (TSH)on 04-21-2024 TSH 1.670 uIU/mL Normal 0.358-3.[address] [facility] Comment on above: Performed By: #### L 500.2500, L501.5425 #### [facility] [place], [address] Total proteinOrdered By: Ruddy Corral on 04-21-2024 Protein [Mass/Vol] 7.4 g/dL 6.4-8.2 [facility] Triglycerides measurementOrd ered By: Ruddy Corral on 04-21-2024 Triglyceride [Mass/Vol] 329 mg/dL High <199 [facility] Comment on above: The drugs N-Acetylcy steine and Metamizole may falsely depress this assay.Serum Triglycerides Reference Interval Normal <150 mg/dL Borderline high 150 - 199 mg/dL High 200 - 499 mg/dL Very High > or = 500 mg/dL Urine albumin/creatinine rat io for detection of microalbuminuriaOrdered By: Ruddy Corral on 04-21-2024 Urine Microalbumin/Creatinine Ratio 20.4 mg/g CRE <[address] [facility] Urine creatinine measurement (mass/volume)Ordered By: Ruddy Corral on 04-21-2024 Creatinine (U) [Mass/Vol] 190.00 mg/dL NO RANGE EST. [facility] Very low density lipoprotein (VLDL) cholesterol measurementOrdered By: Ruddy Corral on 04-21-2024 Very low density lipoprotein (VLDL) cholesterol measurement 66 mg/dL High 5-[address] [facility] VLDL Cholesterol 66 mg/dL High 5-[address] [facility] Vitamin D,25 Hydroxyon 04-21 Vitamin D 25-OH 54.0 ng/mL Normal [facility] Comment on above: Result Comment: Lizbet min D 25(OH) Status Range Deficiency <20 ng/mL (50nmol/L) Insufficiency 20 - 30 ng/mL (50 - 75 nmol/L) Sufficiency 30 - 100 ng/mL (75 - 250 nmol/L) Toxicity >100 ng/mL (>250 nmol/L) Performed By: #### L 500.2500, L501.5425 #### [facility] [address] [place], [address] White blood cell (WBC) count Ordered By: Ruddy Corral on 04-21-2024 WBC (Bld) [#/Vol] 5.9 10*3/uL 4.4-11.0 [facility] Absolute lymphocyte countOrd ered By: Ruddy Corral on 04-10-2024 Lymphocytes Auto (Unsp spec) [#/Vol] 2.05 10*3/uL 0.83-4.[address] [facility] Absolute neutrophil countOrd ered By: Ruddy Corral on 04-10-2024 Neutrophils (Bld) [#/Vol] 3.9 10*3/uL 2.0-7.[address] [facility] Albumin to globulin ratioOrd ered By: Ruddy Corral on 04-10-2024 Albumin/Globulin [Mass ratio] 1.0 {ratio} Normal 0.9-2.[address] [facility] Comment on above: Performed By: #### L 400, L501.1200, L500.4050, L501.9520, L100.0100, L502.0250 #### [facility] [address] [place], [place], [id number] Automated blood erythrocyte countOrdered By: Ruddy Corral on 04-10-2024 RBC (Bld) [#/Vol] 4.22 10*6/uL Normal 4.2-5.[address] [facility] Comment on above: Performed By: #### L 400, L501.1200, L500.4050, L501.9520, L100.0100, L502.0250 #### [facility] [address] [place], [place], [id number] Automated blood hematocrit ( percentage)Ordered By: Ruddy Corral on 04-10-2024 Hematocrit (Bld) [Volume fraction] 40.8 % Normal 37-[address] [facility] Comment on above: Performed By: #### L 400, L501.1200, L500.4050, L501.9520, L100.0100, L502.0250 #### [facility] [address] [place], [place], [id number] Automated lymphocyte count a s percentage of total leukocytesOrdered By: Ruddy Corral on 04-10-2024 Lymphocytes/100 WBC (Bld) 30.8 % Normal 19-[address] [facility] Comment on above: Performed By: #### L 400, L501.1200, L500.4050, L501.9520, L100.0100, L502.0250 #### [facility] [address] [place], [address] Lymphocytes/100 WBC Auto (Unsp spec) 30.8 % 19-[address] [facility] Basophil percentageOrdered B y: Ruddy Ellis on 04-10-2024 Basophils/100 WBC (Bld) 0.5 % Normal 0-1 [facility] Comment on above: Performed By: #### L 400.2010, L501.1200, L500.4050, L501.9520, L100.0100, L502.0250 #### [facility] [address] [place], [address] Bilirubin Test strip Ql (U)O rdered By: Ruddy Corral on 04-10-2024 Bilirubin Ql (U) Negative Negative [facility] Bilirubin, totalOrdered By: Ruddy Corral on 04-10-2024 Bilirubin [Mass/Vol] 0.50 mg/dL Normal 0.20-1.00 [facility] Comment on above: For patients on eltr ombopag therapy, use of Dimension [place] TBIL is not recommended. Result Comment: For patients on eltrombopag therapy, use of Dimension [place] TBIL is not recommended. Performed By: #### L 400.2010, L501.1200, L500.4050, L501.9520, L100.0100, L502.0250 #### [facility] [address] [place], [address] Blood urea nitrogen (BUN)/cr eatinine ratioOrdered By: Ruddy Corral on 04-10-2024 Urea nitrogen/Creatinine [Mass ratio] 18.3 mg/mg 10-[address] [facility] CBC W/Diff, Automatedon 03-29 Absolute Lymph 2.05 X10 3/uL Normal 0.83-4.[address] [facility] Comment on above: Performed By: #### L 400.2010, L501.1200, L500.4050, L501.9520, L100.0100, L502.0250 #### [facility] [address] [place], [address] Absolute Neut 3.9 X10 3/uL Normal 2.0-7.[address] [facility] Comment on above: Performed By: #### L 400, L501.1200, L500.4050, L501.9520, L100.0100, L502.0250 #### [facility] [address] [place], [address] IG% 0.300 Normal 0.0-0.[address] [facility] Comment on above: Result Comment: IG% - Immature Granulocytes (promyelocytes, myelocytes and metamyelocytes) > 1% indicates that a LEFT SHIFT is Present. Performed By: #### L 400, L501.1200, L500.4050, L501.9520, L100.0100, L502.0250 #### [facility] [address] [place], [address] Nucleated RBC (Bld) [#/Vol] 0 10*3/uL Normal 0-[address] [facility] Comment on above: Performed By: #### L 400, L501.1200, L500.4050, L501.9520, L100.0100, L502.0250 #### [facility] [address] [place], [address] RDW SD 47.8 fl High 35.1-43.[address] [facility] Comment on above: Performed By: #### L 400, L501.1200, L500.4050, L501.9520, L100.0100, L502.0250 #### [facility] [address] [place], [address] Carbon dioxide measurementOr dered By: Ruddy Corral on 04-10-2024 CO2 [Moles/Vol] 25.0 mmol/L Normal 21.0-32.[address] [facility] Comment on above: Performed By: #### L 400, L501.1200, L500.4050, L501.9520, L100.0100, L502.0250 #### [facility] [address] [place], [address] Chloride measurementOrdered By: Ruddy Corral on 04-10-2024 Chloride [Moles/Vol] 107 mmol/L Normal 98-107 [facility] Comment on above: Performed By: #### L 400.2010, L501.1200, L500.4050, L501.9520, L100.0100, L502.0250 #### [facility] [address] [place], [address] Comprehensive Metabolic Prof dulce 04-10-2024 ALK P 96 U/L Normal 45-[address] [facility] Comment on above: Performed By: #### L 400, L501.1200, L500.4050, L501.9520, L100.0100, L502.0250 #### [facility] [address] [place], [address] BUN/CRE 18.3 RATIO Normal 10-[address] [facility] [address] [facility] [facility] Comment on above: Performed By: #### L 400, L501.1200, L500.4050, L501.9520, L100.0100, L502.0250 #### [facility] [address] [place], [address] CA,Total 9.2 mg/dL Normal 8.5-10.[address] [facility] Comment on above: Performed By: #### L 400.2010, L501.1200, L500.4050, L501.9520, L100.0100, L502.0250 #### [facility] [address] [place], [address] EST GFR - AA 77 mL/min Normal >[address] [facility] Comment on above: Result Comment: Afri can Thai GFR Calc Performed By: #### L 400, L501.1200, L500.4050, L501.9520, L100.0100, L502.0250 #### [facility] [address] [place], [address] GAP 7 Normal 5-[address] [facility] Comment on above: Performed By: #### L 400.2010, L501.1200, L500.4050, L501.9520, L100.0100, L502.0250 #### [facility] [address] [place], [address] T PROT 7.1 g/dL Normal 6.4-8.[address] [facility] Comment on above: Performed By: #### L 400.2010, L501.1200, L500.4050, L501.9520, L100.0100, L502.0250 #### [facility] [address] [place], [address] Comprehensive Metabolic Prof ilOrdered By: Ruddy Corral on 04-10-2024 AST [Catalytic activity/Vol] 19 U/L Normal 15-[address] [facility] Comment on above: Performed By: #### L 400, L501.1200, L500.4050, L501.9520, L100.0100, L502.0250 #### [facility] [address] [place], [address] Creatinine, Urine (random)on 04-10-2024 UR CREAT 141.00 mg/dL Normal NO RANGE EST. [facility] Comment on above: Performed By: #### L 400, L501.1200, L500.4050, L501.9520, L100.0100, L502.0250 #### [facility] [address] [place], [address] Eosinophil percentageOrdered By: Ruddy Corral on 04-10-2024 Eosinophils/100 WBC (Bld) 1.8 % Normal 0-[address] [facility] Comment on above: Performed By: #### L 400, L501.1200, L500.4050, L501.9520, L100.0100, L502.0250 #### [facility] [address] [place], [place], [address] Erythrocyte distribution wid th ratioOrdered By: Ruddy Corral on 04-10-2024 Erythrocyte distribution width (RBC) [Ratio] 13.3 % Normal 11.6-14.[address] [facility] Comment on above: Performed By: #### L 400.2010, L501.1200, L500.4050, L501.9520, L100.0100, L502.0250 #### [facility] [address] [place], [place], [address] Erythrocyte distribution wid th standard deviationOrdered By: Ruddy Corral on 04-10-2024 Erythrocyte distribution width (RBC) [Entitic vol] 47.8 fL High 35.1-43.9 [facility] Erythrocyte distribution width (RBC) [Ratio] 47.8 fl High 35.1-43.[address] [facility] Estimated glomerular filtrat ion rate (GFR) AmericanOrdered By: Ruddy Corral on 04-10-2024 Estimated GFR (MDRD) Amer 77 mL/min >[address] [facility] Comment on above: GFR Calc Glomerular filtration rate ( GFR) estimationOrdered By: Ruddy Corral on 04-10-2024 GFR/1.73 sq M.predicted among non-blacks MDRD (S/P/Bld) [Vol rate/Area] 63 mL/min/{1.73_m2} Normal >60 [facility] Comment on above: Non- GFR Calc Result Comment: Non- GFR Calc Performed By: #### L 400.2010, L501.1200, L500.4050, L501.9520, L100.0100, L502.0250 #### [facility] [address] [place], [place], [address] Estimated GFR (MDRD) Non-Af Amer 63 mL/min >[address] [facility] Comment on above: Non- GFR Calc Glucose Ql (U)Ordered By: Steven Corral on 04-10-2024 Urine Glucose (UA) Normal mg/dl Normal [facility] Glucose measurementOrdered B y: Ruddy Corral on 04-10-2024 Glucose [Mass/Vol] 101 mg/dL Normal 74-106 [facility] Comment on above: Fasting Glucose resu lt from 100 to 125 mg/dL suggests IMPAIRED HOMEOSTASIS per A.D.A. criteria. Result Comment: Fast ing Glucose result from 100 to 125 mg/dL suggests IMPAIRED HOMEOSTASIS per A.D.A. criteria. Performed By: #### L 400.2010, L501.1200, L500.4050, L501.9520, L100.0100, L502.0250 #### [facility] [address] [place], [place], [address] Hemoglobin measurementOrdere d By: Ruddy Corral on 04-10-2024 Hemoglobin (Bld) [Mass/Vol] 13.6 g/dL Normal 12.0-15.[address] [facility] Comment on above: Performed By: #### L 400.2010, L501.1200, L500.4050, L501.9520, L100.0100, L502.0250 #### [facility] [address] [facility] [address] [place], [place], [address] Immature granulocytes/100 WB C Auto (Bld)Ordered By: Ruddy Corral on 04-10-2024 Immature granulocytes/100 WBC (Bld) 0.300 % 0.0-0.[address] [facility] Comment on above: IG% - Immature Granu locytes (promyelocytes, myelocytes and metamyelocytes) > 1% indicates that a LEFT SHIFT is Present. Ketones Test strip Ql (U)Ord ered By: Ruddy Kelloggok on 04-10-2024 Ketones Ql (U) Negative Negative [facility] Lymphocytes Auto (Unsp spec) [#/Vol]Ordered By: Ruddy Corral on 04-10-2024 Lymphocytes (Bld) [#/Vol] 2.05 10*3/uL 0.83-4.[address] [facility] MCV (mean corpuscular volume ) determinationOrdered By: Ruddy Corral on 04-10-2024 MCV (RBC) [Entitic vol] 96.7 fL Normal 81-99 [facility] Comment on above: Performed By: #### L 400.2010, L501.1200, L500.4050, L501.9520, L100.0100, L502.0250 #### [facility] [address] [place], [address] Mean corpuscular hemoglobin (MCH) determinationOrdered By: Ruddy Corral on 04-10-2024 MCH (RBC) [Entitic mass] 32.2 pg High 27.0-32.[address] [facility] Comment on above: Performed By: #### L 400.2010, L501.1200, L500.4050, L501.9520, L100.0100, L502.0250 #### [facility] [address] [place], [place], [address] Mean corpuscular hemoglobin concentration (MCHC) determinationOrdered By: Ruddy Corral on 04-10-2024 MCHC (RBC) [Mass/Vol] 33.3 g/dL Normal 32-36 [facility] Comment on above: Performed By: #### L 400.2010, L501.1200, L500.4050, L501.9520, L100.0100, L502.0250 #### [facility] [address] [place], [address] Mean platelet volume determi nationOrdered By: Ruddy Corral on 04-10-2024 Platelet mean volume (Bld) [Entitic vol] 10.3 fL Normal 6.2-12.[address] [facility] Comment on above: Performed By: #### L 400.2010, L501.1200, L500.4050, L501.9520, L100.0100, L502.0250 #### [facility] [address] [place], [address] Microalb:Creat Ratio,Random URon 04-10-2024 MALB:CRE 165.2 mg/g CRE High <30 mg/g CRE [facility] Comment on above: Performed By: #### L 400.2010, L501.1200, L500.4050, L501.9520, L100.0100, L502.0250 #### [facility] [address] [place], [address] MICROALBUMIN,UR 233.0 mg/L Normal NO RANGE EST. [facility] Comment on above: Performed By: #### L 400.2010, L501.1200, L500.4050, L501.9520, L100.0100, L502.0250 #### [facility] [address] [place], [address] Monocyte percentageOrdered B y: Ruddy Corral on 04-10-2024 Monocytes/100 WBC (Bld) 7.7 % Normal 0-10 [facility] Comment on above: Performed By: #### L 400.2010, L501.1200, L500.4050, L501.9520, L100.0100, L502.0250 #### [facility] [address] [place], [address] Neutrophil percentageOrdered By: Ruddy Corral on 04-10-2024 Neutrophils/100 WBC (Bld) 58.9 % Normal 47-[address] [facility] Comment on above: Performed By: #### L 400.2010, L501.1200, L500.4050, L501.9520, L100.0100, L502.0250 #### [facility] [address] [place], [address] Nucleated red blood cell per centageOrdered By: Ruddy Corral on 04-10-2024 Nucleated RBC/100 WBC (Bld) [Ratio] 0 % 0-[address] [facility] Platelet countOrdered By: Steven Corral on 04-10-2024 Platelets (Bld) [#/Vol] 212 10*3/uL Normal 150-[address] [facility] Comment on above: Performed By: #### L 400.2010, L501.1200, L500.4050, L501.9520, L100.0100, L502.0250 #### [facility] [address] [place], [place], [address] Potassium measurementOrdered By: Ruddy Corral on 04-10-2024 Potassium [Moles/Vol] 4.2 mmol/L Normal 3.5-5.1 [facility] Comment on above: Performed By: #### L 400.2010, L501.1200, L500.4050, L501.9520, L100.0100, L502.0250 #### [facility] [address] [place], [place], [address] Protein Test strip Ql (U)Ord ered By: Ruddy Corral on 04-10-2024 Protein Ql (U) 30 mg/dl High Negative [facility] Random urine microalbumin me asurementOrdered By: Ruddy Corral on 04-10-2024 Urine Random Microalbumin 233.0 mg/L NO RANGE EST. [facility] Serum anion gap measurementO rdered By: Ruddy Corral on 04-10-2024 Anion gap [Moles/Vol] 7 mmol/L 5-15 [facility] Serum globulin measurementOr dered By: Ruddy Corral on 04-10-2024 Globulin (S) [Mass/Vol] 3.6 g/dL Normal 2.2-4.2 [facility] Comment on above: Performed By: #### L 400.2010, L501.1199, L500.4050, L501.9520, L100.0100, L502.0250 #### [facility] [address] [place], [address] Serum or plasma alanine gomez otransferase (ALT) measurementOrdered By: Ruddy Corral on 04-10-2024 ALT [Catalytic activity/Vol] 20 U/L Normal 13-[address] [facility] Comment on above: Performed By: #### L 400, L501.1200, L500.4050, L501.9520, L100.0100, L502.0250 #### [facility] [address] [place], [address] Serum or plasma albumin nunu urement (mass/volume)Ordered By: Ruddy Ellis on 04-10-2024 Albumin [Mass/Vol] 3.5 g/dL Normal 3.2-5.0 [facility] Comment on above: Performed By: #### L 400.2010, L501.1200, L500.4050, L501.9520, L100.0100, L502.0250 #### [facility] [address] [place], [address] Serum or plasma alkaline kathryn sphatase measurementOrdered By: Ruddy Ellis on 04-10-2024 ALP [Catalytic activity/Vol] 96 U/L 45-[address] [facility] Serum or plasma calcium nunu urement (mass/volume)Ordered By: Ruddy Ellis on 04-10-2024 Calcium [Mass/Vol] 9.2 mg/dL 8.5-10.1 [facility] Serum or plasma creatinine m easurement (mass/volume)Ordered By: Ruddy Ellis on 04-10-2024 Creatinine [Mass/Vol] 0.93 mg/dL Normal 0.55-1.02 [facility] Comment on above: The validity of the calculated GFR & GFRAA in patients over 70 years has not been determined. Clinical correlation is essential. Result Comment: The validity of the calculated GFR GFRAA in patients over 70 years has not been determined. Clinical correlation is essential. Performed By: #### L 400, L501.1200, L500.4050, L501.9520, L100.0100, L502.0250 #### [facility] [address] [place], [address] Serum or plasma thyroid stim ulating hormone (TSH) measurement (units/volume)Ordered By: Ruddy Corral on 04-10-2024 TSH Qn 1.310 uIU/mL 0.358-3.[address] [facility] Serum or plasma urea nitroge n measurement (mass/volume)Ordered By: Ruddy Corral on 04-10-2024 Urea nitrogen [Mass/Vol] 17 mg/dL Normal 7-[address] [facility] Comment on above: Performed By: #### L 400.2010, L501.1200, L500.4050, L501.9520, L100.0100, L502.0250 #### [facility] [address] [place], [address] Shoulder min 2 Viewson 04-10 Shoulder min 2 Views [facility] Imaging Services [address] [place] [address] Shoulder min 2 Views MR#: [id number] Acct: [id number] Name: IVON WISEMAN Rep #: [id number] : 1955 F 68 From: Paulo Dior MD PCP: Dr. Ruddy Corral MD Status: REG CLI Study: Shoulder min 2 Views Date of Exam: 04/10/24 Exam# [id number] Ordering Dr: Ruddy Corral MD EXAM: XR Right Shoulder Complete, 2 or More Views CLINICAL INDICATION: TECHNIQUE: Two or more views of the right shoulder. COMPARISON: No relevant prior studies available. FINDINGS: BONES/JOINTS: Total shoulder replacement. Intact hardware. No acute fracture. No dislocation. SOFT TISSUES: Soft tissue emphysema and swelling. 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 Reading [facility] CC: Dr. Ruddy Corral MD Sail Maker: Signed Normal [facility] Sodium levelOrdered By: Ruddy Corral on 04-10-2024 Sodium [Moles/Vol] 138 mmol/L Normal 136-145 [facility] Comment on above: Performed By: #### L 400.2010, L501.1200, L500.4050, L501.9520, L100.0100, L502.0250 #### [facility] [address] [place], [address] TSH QnOrdered By: Ruddy smith 04-10-2024 Thyroid Stimulating Hormone (TSH) 1.310 uIU/mL 0.358-3.[address] [facility] Thyroid Stim Hormone (TSH)on 04-10-2024 TSH 1.310 uIU/mL Normal 0.358-3.[address] [facility] Comment on above: Performed By: #### L 400.2010, L501.1200, L500.4050, L501.9520, L100.0100, L502.0250 #### [facility] [address] [place], [address] Total proteinOrdered By: Ruddy Corral on 04-10-2024 Protein [Mass/Vol] 7.1 g/dL 6.4-8.2 [facility] Urinalysis, Routine (Dipstic k)on 04-10-2024 BILIRUBIN URINE Negative Normal Negative [facility] Comment on above: Order Comment: Urine , Random Performed By: #### L 400.2010, L501.1200, L500.4050, L501.9520, L100.0100, L502.0250 #### [facility] [address] [place], [address] GLUCOSE, UR Normal Normal Normal [facility] Comment on above: Order Comment: Urine , Random Performed By: #### L 400.2010, L501.1200, L500.4050, L501.9520, L100.0100, L502.0250 #### [facility] [address] [place], [address] KETONE UR Negative Normal Negative [facility] Comment on above: Order Comment: Urine , Random Performed By: #### L 400.2010, L501.1200, L500.4050, L501.9520, L100.0100, L502.0250 #### [facility] [address] [place], [address] LEUK ESTERASE 100 /ul Abnormal Negative [facility] Comment on above: Order Comment: Urine , Random Performed By: #### L 400, L501.1200, L500.4050, L501.9520, L100.0100, L502.0250 #### [facility] [address] [place], [address] OCCULT BLOOD-UR 25 /ul Abnormal Negative [facility] Comment on above: Order Comment: Urine , Random Performed By: #### L 400.2010, L501.1200, L500.4050, L501.9520, L100.0100, L502.0250 #### [facility] [address] [place], [address] pH UR 5.0 Normal 5.0 - 8.[address] [facility] Comment on above: Order Comment: Urine , Random Performed By: #### L 400, L501.1200, L500.4050, L501.9520, L100.0100, L502.0250 #### [facility] [address] [place], [address] PROT DIPSTX 30 mg/dl Abnormal Negative [facility] Comment on above: Order Comment: Urine , Random Performed By: #### L 400, L501.1200, L500.4050, L501.9520, L100.0100, L502.0250 #### [facility] [address] [place], [address] SP.GR. DIPSTX 1.025 Normal 1.002-1.[address] [facility] Comment on above: Order Comment: Urine , Random Performed By: #### L 400, L501.1200, L500.4050, L501.9520, L100.0100, L502.0250 #### [facility] [address] [place], [address] UROBILI Normal Normal Normal [facility] Comment on above: Order Comment: Urine , Random Performed By: #### L 400, L501.1200, L500.4050, L501.9520, L100.0100, L502.0250 #### [facility] [address] [place], [address] Urine albumin/creatinine rat io for detection of microalbuminuriaOrdered By: Ruddy Corral on 04-10-2024 Urine Microalbumin/Creatinine Ratio 165.2 mg/g CRE High <[address] [facility] Urine blood detectionOrdered By: Ruddy Corral on 04-10-2024 Urine Occult Blood 25 /ul High Negative [facility] Urine clarityOrdered By: Ruddy Corral on 04-10-2024 Clarity (U) Sl. Cloudy Normal Clear [facility] Comment on above: Order Comment: Urine , Random Performed By: #### L 400.2010, L501.1200, L500.4050, L501.9520, L100.0100, L502.0250 #### [facility] [address] [facility] [address] [place], [place], [id number] Urine color determinationOrd ered By: Ruddy Corral on 04-10-2024 Color (U) Yellow Normal Yellow [facility] Comment on above: Order Comment: Urine , Random Performed By: #### L 400.2010, L501.1200, L500.4050, L501.9520, L100.0100, L502.0250 #### [facility] [address] [place], [place], [address] Urine creatinine measurement (mass/volume)Ordered By: Ruddy Corral on 04-10-2024 Creatinine (U) [Mass/Vol] 141.00 mg/dL NO RANGE EST. [facility] Urine glucose detectionOrder ed By: Ruddy Corral on 04-10-2024 Glucose Ql (U) Normal mg/dl Normal [facility] Urine leukocyte esterase det ection by dipstickOrdered By: Ruddy Corral on 04-10-2024 Leukocyte esterase Test strip Ql (U) 100 /ul High Negative [facility] Urine nitrite test by dipsti ckOrdered By: Ruddy Corral on 04-10-2024 Nitrite Ql (U) Negative Normal Negative [facility] Comment on above: Order Comment: Urine , Random Performed By: #### L 400.2010, L501.1200, L500.4050, L501.9520, L100.0100, L502.0250 #### [facility] [address] [place], [address] Urine pHOrdered By: Ruddy Corral on 04-10-2024 pH (U) 5.0 [pH] 5.0 - 8.[address] [facility] Urine specific gravity measu rementOrdered By: Ruddy Corral on 04-10-2024 Specific gravity (U) [Rel density] 1.025 1.002-1.[address] [facility] Urine urobilinogen measureme ntOrdered By: Ruddy Corral on 04-10-2024 Urobilinogen Ql (U) Normal mg/dl Normal [facility] Urobilinogen Ql (U)Ordered B y: Ruddy Corral on 04-10-2024 Urine Urobilinogen Normal mg/dl Normal [facility] White blood cell (WBC) count Ordered By: Ruddy Corral on 04-10-2024 WBC (Bld) [#/Vol] 6.7 10*3/uL Normal 4.4-11.0 [facility] Comment on above: Performed By: #### L 400.2010, L501.1200, L500.4050, L501.9520, L100.0100, L502.0250 #### [facility] [address] [place], [place], [id number] Influenza virus A and B and SARS-CoV-2 (COVID-19) and Respiratory syncytial virus RNAOrdered By: Ruddy Corral on 03-28-2024 SARS-CoV-2 (COVID-19) RNA DAVON+probe Ql (Unsp spec) [facility] SARS-CoV-2 (COVID-19) RNA DAVON+probe Ql (Unsp spec) [facility] M100.678on 03-28-2024 M100.678 Pending SARS-CoV-2 (COVID 19) Negative INFLUENZA A Negative INFLUENZA B Negative RSV PCR Negative Normal [facility] Comment on above: Performed By: #### L 400.2010, L501.1200, L500.4050, L501.9520, L100.0100, L502.0250 #### [facility] [address] [place], [address] Miscellaneous Lab Procedureo n 12-19-2023 [facility] [place] Normal [facility] Comment on above: Order Comment: URINE TOX [id number] [id number] Result Comment: [id number] 6+OXYCODONE-BUND (ng/mL) DRUG RESULT SCREEN CUTOFF ____ Amphetamines,Urine Negative ng/mL 1000 Amphetamine test includes Amphetamine and Methamphetamine. Barbiturates Negative ng/mL 200 Benzodiazepines Negative ng/mL 200 Cannabinoid Negative ng/mL 20 Cocaine (Metab) Negative ng/mL 300 Opiates POSITIVE ng/mL 300 Opiates test includes Codeine, Morphine, Hydromorphone, Hydrocodone. Please Note: Confirmation performed by Mass Spectrometry Codeine Negative 300 Morphine Negative 300 Hydromorphone Negative 300 Hydrocodone Positive Hydrocodone Conf, MS, UR 1312 ng/mL 300 Oxycodone/Oxymorphone,Urine Negative ng/mL 300 Test includes Oxycodone and Oxymorphone. TESTING PERFORMED AT [facility]. ORIGINAL REPORT ON FILE IN LAB CONTAINS ADDITIONAL TEST SITE INFORMATION. Performed By: #### L 400.2010, L501.1200, L500.4050, L501.9520, L100.0100, L502.0250 #### [facility] [address] [place], [address] Lumbar Spine 2 or 3 Viewson 12-13-2023 Lumbar Spine 2 or 3 Views [facility] Imaging Services [address] [place] [address] Lumbar Spine 2 or 3 Views MR#: [id number] Acct: [id number] Name: IVON WISEMAN Rep #: [id number] : 1955 F 68 From: Will Reyna PCP: Dr. Ruddy Corral MD Status: REG CLI Study: Lumbar Spine 2 or 3 Views Date of Exam: Exam# [id number] Ordering Dr: Montserrat Welsh MD [id number] STUDY: X-RAY - LUMBAR SPINE REASON FOR EXAM: Female, 68 years old. spondylosis in the lumbar region without myelopathy or radiculopa TECHNIQUE: 2 view(s) of the lumbar spine were obtained. COMPARISON: Lumbar spine radiograph May 16, 2017 FINDINGS: Normal lumbar lordosis. Mild dextroconvex scoliosis. Retrolisthesis at L1-2 and L2-3. There is multilevel endplate spondylosis of the lumbar vertebrae. Displaced narrowing at all levels. The soft tissue structures are unremarkable. RAD/Lumbar Spine 2 or 3 Views IMPRESSION: Degenerative disease and spondylosis Electronically Signed: Will Clark MD at 15:49 EDT , CC: Dr. Montserrat Welsh MD; Dr. Ruddy Corral MD Sail Maker: Signed Normal [facility] Urine Drug Screen (VISTA)on 12-13-2023 AMPHETAMINES Negative Normal <1000 ng/mL [facility] Comment on above: Order Comment: UNK Performed By: #### L 400.2011, L501.1200, L500.4050, L501.9520, L100.0100, L502.0250 #### [facility] [address] [place], [place], [facility] BARBITIURATES Negative Normal < 200 ng/mL [facility] Comment on above: Order Comment: UNK Performed By: #### L 400.2010, L501.1200, L500.4050, L501.9520, L100.0100, L502.0250 #### [facility] [address] [place] [address] BENZODIAZIPINE Negative Normal < 200 ng/mL [facility] Comment on above: Order Comment: UNK Performed By: #### L 400.2010, L501.1200, L500.4050, L501.9520, L100.0100, L502.0250 #### [facility] [address] [place] [address] COCAINE Negative Normal < 300 ng/mL [facility] Comment on above: Order Comment: UNK Performed By: #### L 400, L501.1200, L500.4050, L501.9520, L100.0100, L502.0250 #### [facility] [facility] [address] [place] [address] ECSTACY Positive Abnormal < 500 ng/mL [facility] Comment on above: Order Comment: UNK Performed By: #### L 400.2010, L501.1200, L500.4050, L501.9520, L100.0100, L502.0250 #### [facility] [address] [place] [address] METHADONE Negative Normal < 300 ng/mL [facility] Comment on above: Order Comment: UNK Performed By: #### L 400, L501.1200, L500.4050, L501.9520, L100.0100, L502.0250 #### [facility] [address] [place] [id number] OPIATES Positive Abnormal < 300 ng/mL [facility] Comment on above: Order Comment: UNK Performed By: #### L 400.2010, L501.1200, L500.4050, L501.9520, L100.0100, L502.0250 #### [facility] [address] [place], [address] PCP Negative Normal < 25 ng/mL [facility] Comment on above: Order Comment: UNK Performed By: #### L 400.2010, L501.1200, L500.4050, L501.9520, L100.0100, L502.0250 #### [facility] [address] [place], [address] THC Negative Normal < 50 ng/mL [facility] Comment on above: Order Comment: UNK Performed By: #### L 400.2010, L501.1200, L500.4050, L501.9520, L100.0100, L502.0250 #### [facility] [address] [place], [address] VISTA UDS PH [address] [facility] Comment on above: Order Comment: UNK Performed By: #### L 400.2010, L501.1200, L500.4050, L501.9520, L100.0100, L502.0250 #### [facility] [address] [place], [address] Stress Reporton 11-14-2023 Stress Report [facility] [address] [place] [address] MR#: [id number] Acct: [id number] Name: IVON WISEMAN Rep #: [id number] : 1955 67 From: Devorah Suresh MD Primary Care: Dr. Ruddy Corral MD Status: REG CLI Referring Dr: Ruddy Corral MD Sex: F C Stress Test Report Date: 11/14/2023 Procedure: Pharmacologic stress nuclear imaging study Indications: Chest pain Consent: Per the patient Procedure: The patient underwent pharmacologic (Regadenoson 0.4mg ) evaluation with a peak heart rate of 77 beats per minute (50%predicted maximal heart rate) and a peak blood pressure of 140/78 mmHg. The baseline ECG demonstrated atrial fibrillation. The peak pharmacologic ECG demonstrated no diagnostic ischemic changes. Baseline atrial fibrillation. There was no complaint of chest discomfort during pharmacologic infusion or recovery. The patient was injected with 14.7 millicuries of technetium 99m Cardiolite and subsequently rest SPECT Cardiolite nuclear imaging was obtained in the horizontal long, vertical long, and short axis views. The patient underwent pharmacologic (Regadenoson) evaluation. The patient was injected with 44.3 millicuries of technetium 99m Cardiolite and subsequently stress SPECT Cardiolite nuclear imaging was obtained in the horizontal long, vertical long, and short axis views. A gated Cardiolite study at peak stress was obtained. The examination was stopped secondary to completion of protocol. Rest and stress SPECT Cardiolite nuclear imaging status post realignment, normalization, and attenuation correction demonstrate no fixed or reversible perfusion defects. There is end systolic thickening and brightening. The gated Cardiolite study demonstrates myocardial thickening and inward wall motion. The reported LVEF is 61%. Impression: 1. Pharmacologic (Regadenoson) evaluation 2. Peak pharmacologic ECG with no diagnostic ischemic changes. 3. Baseline atrial fibrillation. 5. Rest and stress SPECT Cardiolite nuclear imaging demonstrate relative uniform tracer uptake and myocardial perfusion appearing within normal limits. 6. The gated Cardiolite study reports an LVEF of 61%. This note was generated with Sentr[employer] software. It may contain incorrect words, spelling, and punctuation that were not noted in checking the note before signing. 11/14/23 1253 Date Devorah Suresh MD CC: Dr. Ruddy Corral MD Date Dictated: 11/14/23 1251 Date Transcribed: 11/14/23 1251 Sail Maker: ANSELMO Signed Normal [facility] L501.4020on 10-31-2023 TROPONIN-I HS 14 pg/mL Normal 3.0-54.[address] [facility] Comment on above: Result Comment: Rocio bauman Note: New Test Units and Gender Specific Reference Ranges. For more information see Policy Stat Procedure [place] High Sensitivity Troponin (TNIH) and attachments. Performed By: #### L 501.4020 #### [facility] Laboratory [address] [place], [address] 12 Lead EKGon 10-30-2023 12 Lead EKG [facility] Cardiovascular Services [address] [place] [address] 12 Lead EKG 10/30/232047 MR#: [id number] Acct: [id number] Name: IVON WISEMAN Rep #: [id number] : 1955 67 From: Tulio Licea MD Attending Dr: Status: DEP ER Ordering Dr: Sawyer Curtis DO Date: 10/30/23 Location: ED Sex: F C Admitted: Test Reason : CP Blood Pressure : / mmHG Vent. Rate : 073 BPM Atrial Rate : 000 BPM P-R Int : 000 ms QRS Dur : 100 ms QT Int : 414 ms P-R-T Axes : 000 040 006 degrees QTc Int : 456 ms Atrial fibrillation Abnormal ECG Confirmed by TULIO LICEA MD ([id number]), offline editor PALOMO SEAMAN ([id number]) on 11/01/2023 1:48:11 PM Referred By: KIRSTEN Confirmed By:TULIO LICEA MD 11/01/23 1348 Date Tulio Licea MD CC: Dr. Ruddy Corral MD; Dr. Sawyer Curtis DO Signed Normal [facility] Basic Metabolic Profile (BMP )on 10-30-2023 BUN/CRE 11.7 RATIO Normal 10-[address] [facility] Comment on above: Order Comment: 1 Y Performed By: #### L 500.2500, L501.5425 #### [facility] [address] [place], [address] CA,Total 8.7 mg/dL Normal 8.5-10.[address] [facility] Comment on above: Order Comment: 1 Y Performed By: #### L 500.2500, L501.5425 #### [facility] [address] [place], [address] Chloride [Moles/Vol] 111 mmol/L High 98-107 [facility] Comment on above: Order Comment: 1 Y Performed By: #### L 500.2500, L501.5425 #### [facility] [address] [place], [address] CO2 [Moles/Vol] 29.0 mmol/L Normal 21.0-32.[address] [facility] Comment on above: Order Comment: 1 Y Performed By: #### L 500.2500, L501.5425 #### [facility] [address] [place], [address] Creatinine [Mass/Vol] 0.86 mg/dL Normal 0.55-1.02 [facility] Comment on above: Order Comment: 1 Y Result Comment: The validity of the calculated GFR GFRAA in patients over 70 years has not been determined. Clinical correlation is essential. Performed By: #### L 500.2500, L501.5425 #### [facility] [address] [place], [address] EST GFR - AA 84 mL/min Normal >[address] [facility] Comment on above: Order Comment: 1 Y Result Comment: Afri can Thai GFR Calc Performed By: #### L 500.2500, L501.5425 #### [facility] [address] [place], [address] GAP 5 Normal 5-[address] [facility] Comment on above: Order Comment: 1 Y Performed By: #### L 500.2500, L501.5425 #### [facility] [address] [place], [address] GFR/1.73 sq M.predicted among non-blacks MDRD (S/P/Bld) [Vol rate/Area] 70 mL/min/{1.73_m2} Normal >60 [facility] Comment on above: Order Comment: 1 Y Result Comment: Non- GFR Calc Performed By: #### L 500.2500, L501.5425 #### [facility] [address] [place], [address] Glucose [Mass/Vol] 93 mg/dL Normal 74-106 [facility] Comment on above: Order Comment: 1 Y Performed By: #### L 500.2500, L501.5425 #### [facility] [address] [place], [address] Potassium [Moles/Vol] 3.4 mmol/L Low 3.5-5.1 [facility] Comment on above: Order Comment: 1 Y Performed By: #### L 500.2500, L501.5425 #### [facility] [address] [place], [address] Sodium [Moles/Vol] 145 mmol/L Normal 136-145 [facility] Comment on above: Order Comment: 1 Y Performed By: #### L 500.2500, L501.5425 #### [facility] [address] [place], [address] Urea nitrogen [Mass/Vol] 10 mg/dL Normal 7-[address] [facility] Comment on above: Order Comment: 1 Y Performed By: #### L 500.2500, L501.5425 #### [facility] [address] [place], [address] BUN Normal 7-[address] [facility] Comment on above: Order Comment: 1 Y Result Comment: This specimen has been REJECTED due to Laboratory criteria: Hemolyzed. COOPER KING has been notified of need of recollection. 10/30/232150 Janina H Lucero Performed By: #### L 500.2500, L501.5425 #### [facility] [address] [place], [address] BUN/CRE Normal 10-[address] [facility] Comment on above: Order Comment: 1 Y Result Comment: This specimen has been REJECTED due to Laboratory criteria: Hemolyzed. COOPER KING has been notified of need of recollection. 10/30/232150 Janina H Lucero Performed By: #### L 500.2500, L501.5425 #### [facility] [address] [place], [address] CA,Total Normal 8.5-10.[address] [facility] Comment on above: Order Comment: 1 Y Result Comment: This specimen has been REJECTED due to Laboratory criteria: Hemolyzed. COOPER KING has been notified of need of recollection. 10/30/232150 Janina H Lucero Performed By: #### L 500.2500, L501.5425 #### [facility] [address] [place], [address] CL Normal 98-[address] [facility] Comment on above: Order Comment: 1 Y Result Comment: This specimen has been REJECTED due to Laboratory criteria: Hemolyzed. COOPER KING has been notified of need of recollection. 10/30/232150 Janina H Lucero Performed By: #### L 500.2500, L501.5425 #### [facility] [address] [place], [address] CO2 Normal 21.0-32.[address] [facility] Comment on above: Order Comment: 1 Y Result Comment: This specimen has been REJECTED due to Laboratory criteria: Hemolyzed. COOPER KING has been notified of need of recollection. 10/30/232150 Janina H Lucero Performed By: #### L 500.2500, L501.5425 #### [facility] [address] [place], [address] CREAT,SERUM Normal 0.55-1.[address] [facility] Comment on above: Order Comment: 1 Y Result Comment: This specimen has been REJECTED due to Laboratory criteria: Hemolyzed. COOPER KING has been notified of need of recollection. 10/30/232150 Janina H Lucero Performed By: #### L 500.2500, L501.5425 #### [facility] [address] [place], [address] EST GFR Normal >[address] [facility] Comment on above: Order Comment: 1 Y Result Comment: This specimen has been REJECTED due to Laboratory criteria: Hemolyzed. COOPER KING has been notified of need of recollection. 10/30/232150 Janina H Lucero Performed By: #### L 500.2500, L501.5425 #### [facility] [address] [place], [address] EST GFR - AA Normal >[address] [facility] Comment on above: Order Comment: 1 Y Result Comment: This specimen has been REJECTED due to Laboratory criteria: Hemolyzed. COOPER KING has been notified of need of recollection. 10/30/232150 Janina H Lucero Performed By: #### L 500.2500, L501.5425 #### [facility] [address] [place], [address] GAP Normal 5-[address] [facility] Comment on above: Order Comment: 1 Y Result Comment: This specimen has been REJECTED due to Laboratory criteria: Hemolyzed. COOPER KING has been notified of need of recollection. 10/30/232150 Janina H Lucero Performed By: #### L 500.2500, L501.5425 #### [facility] [address] [place], [address] GLU Normal 74-[address] [facility] Comment on above: Order Comment: 1 Y Result Comment: This specimen has been REJECTED due to Laboratory criteria: Hemolyzed. COOPERNADINE KING has been notified of need of recollection. 10/30/232150 Janina H Lucero Performed By: #### L 500.2500, L501.5425 #### [facility] [address] [place], [address] Potassium Normal 3.5-5.[address] [facility] Comment on above: Order Comment: 1 Y Result Comment: This specimen has been REJECTED due to Laboratory criteria: Hemolyzed. COOPER KING has been notified of need of recollection. 10/30/232150 Janina H Lucero Performed By: #### L 500.2500, L501.5425 #### [facility] [address] [place], [address] Basic Metabolic Profile (BMP) Normal 136-[address] [facility] Comment on above: Order Comment: 1 Y Result Comment: This specimen has been REJECTED due to Laboratory criteria: Hemolyzed. COOPER KING has been notified of need of recollection. 10/30/232150 Janina H Lucero Performed By: #### L 500.2500, L501.5425 #### [facility] [address] [place], [address] CBC W/Diff, Automatedon 09-0 3-2023 Absolute Lymph 1.75 X10 3/uL Normal 0.83-4.[address] [facility] Comment on above: Performed By: #### L 500.2500, L501.5425 #### [facility] [address] [place], [address] Absolute Neut 4.8 X10 3/uL Normal 2.0-7.[address] [facility] Comment on above: Performed By: #### L 500.2500, L501.5425 #### [facility] [address] [place], [address] Basophils/100 WBC (Bld) 0.5 % Normal 0-1 [facility] Comment on above: Performed By: #### L 500.2500, L501.5425 #### [facility] [address] [place], [address] Eosinophils/100 WBC (Bld) 1.2 % Normal 0-[address] [facility] Comment on above: Performed By: #### L 500.2500, L501.5425 #### [facility] [address] [place], [address] Erythrocyte distribution width (RBC) [Ratio] 12.9 % Normal 11.6-14.[address] [facility] Comment on above: Performed By: #### L 500.2500, L501.5425 #### [facility] [address] [place], [address] Hematocrit (Bld) [Volume fraction] 38.8 % Normal 37-[address] [facility] Comment on above: Performed By: #### L 500.2500, L501.5425 #### [facility] [address] [place], [address] Hemoglobin (Bld) [Mass/Vol] 12.7 g/dL Normal 12.0-15.[address] [facility] Comment on above: Performed By: #### L 500.2500, L501.5425 #### [facility] [address] [place], [address] IG% 0.400 Normal 0.0-0.[address] [facility] Comment on above: Result Comment: IG% - Immature Granulocytes (promyelocytes, myelocytes and metamyelocytes) > 1% indicates that a LEFT SHIFT is Present. Performed By: #### L 500.2500, L501.5425 #### [facility] [address] [place], [address] Lymphocytes/100 WBC (Bld) 23.9 % Normal 19-[address] [facility] Comment on above: Performed By: #### L 500.2500, L501.5425 #### [facility] [address] [place], [address] MCH (RBC) [Entitic mass] 31.2 pg Normal 27.0-32.[address] [facility] Comment on above: Performed By: #### L 500.2500, L501.5425 #### [facility] [address] [place], [address] MCHC (RBC) [Mass/Vol] 32.7 g/dL Normal 32-36 [facility] Comment on above: Performed By: #### L 500.2500, L501.5425 #### [facility] [address] [place], [address] MCV (RBC) [Entitic vol] 95.3 fL Normal 81-99 [facility] Comment on above: Performed By: #### L 500.2500, L501.5425 #### [facility] [address] [place], [address] Monocytes/100 WBC (Bld) 7.9 % Normal 0-10 [facility] Comment on above: Performed By: #### L 500.2500, L501.5425 #### [facility] [address] [place], [address] Neutrophils/100 WBC (Bld) 66.1 % Normal 47-[address] [facility] Comment on above: Performed By: #### L 500.2500, L501.5425 #### [facility] [address] [place], [address] Nucleated RBC (Bld) [#/Vol] 0 10*3/uL Normal 0-[address] [facility] Comment on above: Performed By: #### L 500.2500, L501.5425 #### [facility] [address] [place], [address] Platelet mean volume (Bld) [Entitic vol] 10.1 fL Normal 6.2-12.[address] [facility] Comment on above: Performed By: #### L 500.2500, L501.5425 #### [facility] [address] [place], [address] Platelets (Bld) [#/Vol] 154 10*3/uL Normal 150-[address] [facility] Comment on above: Performed By: #### L 500.2500, L501.5425 #### [facility] [address] [place], [address] RBC (Bld) [#/Vol] 4.07 10*6/uL Low 4.2-5.[address] [facility] Comment on above: Performed By: #### L 500.2500, L501.5425 #### [facility] [address] [place], [address] RDW SD 45.1 fl High 35.1-43.[address] [facility] Comment on above: Performed By: #### L 500.2500, L501.5425 #### [facility] [address] [place], [address] WBC (Bld) [#/Vol] 7.3 10*3/uL Normal 4.4-11.0 [facility] Comment on above: Performed By: #### L 500.2500, L501.5425 #### [facility] [address] [place], [address] Chest 1 View (Portable)on Chest 1 View (Portable) [facility] Imaging Services [address] [place] [address] Chest 1 View (Portable) MR#: [id number] Acct: [id number] Name: IVON WISEMAN Rep #: [id number] : 1955 F 67 From: Andrei Trujillo MD PCP: Dr. Ruddy Corral MD Status: [facility] ER Study: Chest 1 View (Portable) Date of Exam: 10/30/23 Exam# [id number] Ordering Dr: Sawyer Curtis DO [id number] INDICATION: CP EXAMINATION/TECHNIQUE: X-RAY - XR Chest 1 View COMPARISON: 07/03/2023 chest radiograph. Findings: Single frontal view of the chest. LUNG PARENCHYMA: No acute focal airspace disease or mass lesion. PLEURA: No pleural effusion. No pneumothorax. HEART/GREAT VESSELS: Cardiomediastinal silhouette is unremarkable. BONES: Right shoulder arthroplasty, incompletely imaged, although no obvious hardware complication.. RAD/Chest 1 View (Portable) IMPRESSION: Chest with no acute disease. Electronically Signed: Andrei Trujillo MD at 22:35 EDT , CC: Dr. Ruddy Corral MD; Dr. Sawyer Curtis DO Sail Maker: Signed Normal [facility] Emergency Department Summary on 10-30-2023 Emergency Department Summary [facility] Medical Records Department [address] [place] [address] Emergency Department Summary 10/30/23 MR#: [id number] Acct: [id number] Name: IVON WISEMAN Rep #: [id number] : 1955 67 From: Sawyer Curtis DO PCP: Dr. Ruddy Corral MD Status:REG ER Location: ED HPI History of Present Illness Chief Complaint: Chest Pain [facility] Medical History (HFpEF) heart failure with preserved ejection fraction (09/16/21) Arthrosis of first carpometacarpal joint COPD (chronic obstructive pulmonary disease) Deep vein thrombosis, lower left extremity Essential (primary) hypertension History of pulmonary embolism Hyperlipidemia Kidney stones Longstanding persistent atrial fibrillation Morbid obesity Obstructive sleep apnea Paroxysmal atrial fibrillation Pneumonia Pyelonephritis (09/16/21) Septic shock (09/16/21) Severe sepsis TIA (transient ischemic attack) Type 2 diabetes mellitus Home Medications ???Medication ???Instructions ???Recorded ???Last Taken ???Type albuterol sulfate 90 mcg/actuation 2 puff inhalation Q4H PRN PRN 02/23/18 Unknown History aerosol inhaler COUGH/WHEEZE budesonide-formoterol HFA 160 2 puff inhalation BID copd 04/20/17 02/28/19 History mcg-4.5 mcg/actuation aerosol inhaler celecoxib 200 mg capsule 200 mg PO DAILY depression 04/20/17 02/28/19 History vitamins A,C,O-yqwy-cfrzeg 4,296 1 ea PO DAILY vision vitamin 04/20/17 02/28/19 History mcg-226 mg-90 mg capsule metoprolol tartrate 25 mg tablet 25 mg PO BID #60 tabs 10/29/18 02/28/19 Rx calcium carbonate 600 mg PO DAILY 04/23/19 Unknown History olmesartan 40 mg tablet 40 mg PO DAILY 04/23/19 Unknown History hydrocodone-acetaminop hen 5-325mg 1 tab PO BID BACK PAIN 10/27/20 Unknown History 5mg-325mg pramipexole 0.5 mg tablet 0.5 mg PO BID RESTLESS LEGS 10/27/20 Unknown History vortioxetine 20 mg tablet 20 mg PO DAILY depression 10/27/20 Unknown History multivitamin 1 tab PO DAILY 03/14/22 Unknown History rosuvastatin 40 mg tablet 40 mg PO DAILY 03/14/22 Unknown History solifenacin 5 mg tablet 5 mg PO DAILY 03/14/22 Unknown History trazodone 100 mg tablet 100 mg PO QHS 03/14/22 Unknown History warfarin 5 mg tablet 5 mg PO DAILY MANAGED BY DR. CORRAL 06/09/22 Unknown History Allergy/AdvReac Type Severity Reaction Status Date / Time flecainide (Flecainide) Allergy Rash Verified 10/30/23 20:45 Family History Father CAD (coronary artery disease) Myocardial infarction Other Diabetes Surgical History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 mg capsule Take 1 capsule by mouth once daily. - budesonide-formoterol 160-4.5 mcg/actuation inhaler Inhale 2 Puffs as instructed twice daily. - Zolpidem (AMBIEN CR) 12.5 mg CR tablet Take 1 tablet by mouth at bedtime as needed. - metoprolol tartrate, short acting, 25 mg tablet Take 1 tablet by mouth once daily. - warfarin (COUMADIN) 5 mg tablet Take 1 tablet by mouth daily as directed. 9 mg daily - warfarin (COUMADIN) 4 mg tablet Take 1 tablet by mouth once daily. 9 mg daily - pregabalin 75 mg capsule Take 1 capsule by mouth twice daily. - pramipexole (MIRAPEX) 0.5 mg tablet Take 0.5 mg by mouth twice daily. - olmesartn/hydrochlorot hiazide(BENICAR HCT 40 MG-12.5 MG TAB) Take one(1) tablet daily. - atorvastatin calcium(LIPITOR 20 MG TAB) Take one(1) tablet daily. - multivitamins(MULTIPLE VITAMIN TAB) Take one(1) tablet daily. - calcium carbonate(CALTRATE 600 600 MG (1,500 MG) TAB) Take two(2) tablets daily. Meds Comments as of 05/09/2022: 05/09/22 The medications are managed by this patient by: PATIENT FRACISCO Bethea Problem List As Of Date 08/23/2022 Noted Resolved TEETEE (obstructive sleep apnea) [G47.33] 12/18/2012 Obesity [E66.9] 12/18/2012 COPD (chronic obstructive pulmonary disease) (H*12/18/2012 RLS (restless legs syndrome) [G25.81] 12/18/2012 DVT (deep venous thrombosis) (HCC) [I82.409] 01/06/2013 Pulmonary embolism (HCC) [I26.99] 01/06/2013 Atrial fibrillation (HCC) [I48.91] 05/06/2010 06/06/2010 Coronary artery disease [I25.10] Urinary tract infection [N39.0] 09/16/2021 Type 2 diabetes mellitus without complications *05/05/2021 Triggering of digit [M65.30] 03/24/2022 Shortness of breath [R06.02] 12/22/2020 Sepsis (HCC) [A41.9] 09/16/2021 08/04/2022 Primary localized osteoarthritis [M19.91] 01/03/2011 Pneumonia [J18.9] 05/09/2022 Pain of hand [M79.643] 03/24/2022 Other specified symptoms and signs involving th*04/27/2021 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, 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 (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) [F11.20] 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 *05/09/2022 Hyperlipidemia [E78.5] 08/31/2016 History of pulmonary embolism [Z86.711] 02/17/2016 Heart failure with preserved ejection fraction *09/16/2021 Orthopedic aftercare [Z47.89] 05/24/2015 Dizziness and giddiness [R42] 08/17/2010 Aortic valve disorder [I35.9] 04/11/2022 Accident due to mechanical fall without injury *05/09/2022 Abrasion of right knee [S80.211A] 05/09/2022 Exudative age-related macular degeneration, lef*05/09/2022 Nonexudative age-related macular degeneration, *05/09/2022 Bilateral pseudophakia [Z96.1] 05/09/2022 Encounter Status:Closed by KRISTOPHER KIRKLAND on 08/23/22 [facility] Sil 07-19-2022 CNPN Telephone ([facility]) IVON WISEMAN ([id number]) 1955 F Date Time Provider Department 07/19/22 MIRLANDE ARIAS [facility] During your visit today, we recorded the following information about you: Shelly Casimiro 07/19/2022 10:14 AM Signed Mirlande Arias MD 07/19/2022 12:36 PM Signed Addended by: MIRLANDE ARIAS on: 07/19/2022 12:36 PM Modules accepted: Orders Jarrett Sheffield 07/20/2022 3:57 PM Signed Received from [facility] stating the office notes sent was to old need new office notes via fax. 1 page indexed to chart. Lizzeth Coleman RN 07/21/2022 10:01 AM Signed [employer] [employer] message sent Allergies As of Date: 07/19/2022 Noted Allergy Reaction FLECAINIDE 12/18/2012 4 - Hives Date Reviewed: 06/27/2022 Reviewed by: Kathe Caraballo MD - Fully Assessed Reason for Visit: PAP Therapy Follow Up [1285] Cmt: CPAP MACHINE OVER 7 YEARS OLD NOT TRANSMITTING ANYMORE. Office Notes [Other] Cmt: Over 6 Months [place] Primary Visit Diagnosis:Obstructive sleep apnea [G47.33] Order(s):PAP THERAPY ORDER [[id number]] Order #: [id number]: 1 CPAP/BIPAP/OTHERType .CPAPSettings into a note to see current settings/supplies/DME information.Disp: 1 EachRfl: 0 Prescriptions as of 07/27/2022 - CPAP/BIPAP/OTHER Type .CPAPSettings into a note to see current settings/supplies/DME information. - CPAP/BIPAP/OTHER Type .CPAPSettings into a note to see current settings/supplies/DME information. - CPAP/BIPAP/OTHER Type .CPAPSettings into a note to see current settings/supplies/DME information. - armodafinil (NUVIGIL) 200 mg tab Take 200 mg by mouth once daily. - CPAP autoPAP 13-20 cmH2O, mask, tubing, filters, heated humidity, lifetime supplies. Please fax 7-10 compliance download to [phone] ([place]). Dx: TEETEE - celecoxib (CELEBREX) 200 mg capsule Take 1 capsule by mouth once daily. - budesonide-formoterol 160-4.5 mcg/actuation inhaler Inhale 2 Puffs as instructed twice daily. - Zolpidem (AMBIEN CR) 12.5 mg CR tablet Take 1 tablet by mouth at bedtime as needed. - metoprolol tartrate, short acting, 25 mg tablet Take 1 tablet by mouth once daily. - warfarin (COUMADIN) 5 mg tablet Take 1 tablet by mouth daily as directed. 9 mg daily - warfarin (COUMADIN) 4 mg tablet Take 1 tablet by mouth once daily. 9 mg daily - pregabalin 75 mg capsule Take 1 capsule by mouth twice daily. - pramipexole (MIRAPEX) 0.5 mg tablet Take 0.5 mg by mouth twice daily. - olmesartn/hydrochlorot hiazide(BENICAR HCT 40 MG-12.5 MG TAB) Take one(1) tablet daily. - atorvastatin calcium(LIPITOR 20 MG TAB) Take one(1) tablet daily. - multivitamins(MULTIPLE VITAMIN TAB) Take one(1) tablet daily. - calcium carbonate(CALTRATE 600 600 MG (1,500 MG) TAB) Take two(2) tablets daily. Meds Comments as of 05/09/2022: 05/09/22 The medications are managed by this patient by: PATIENT Juan Geller, OA Problem List As Of Date 07/19/2022 Noted Resolved TEETEE (obstructive sleep apnea) [G47.33] 12/18/2012 Obesity [E66.9] 12/18/2012 COPD (chronic obstructive pulmonary disease) (H*12/18/2012 RLS (restless legs syndrome) [G25.81] 12/18/2012 DVT (deep venous thrombosis) ([facility]) [I82.409] 01/06/2013 Pulmonary embolism (HCC) [I26.99] 01/06/2013 Atrial fibrillation (HCC) [I48.91] 05/06/2010 06/06/2010 Coronary artery disease [I25.10] Urinary tract infection [N39.0] 09/16/2021 Type 2 diabetes mellitus without complications *05/05/2021 Triggering of digit [M65.30] 03/24/2022 Shortness of breath [R06.02] 12/22/2020 Sepsis (HCC) [A41.9] 09/16/2021 Primary localized osteoarthritis [M19.91] 01/03/2011 Pneumonia [J18.9] 05/09/2022 Pain of hand [M79.643] 03/24/2022 Other specified symptoms and signs involving th*04/27/2021 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, 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 (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) [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.20] 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 *05/09/2022 Hyperlipidemia [E78.5] 08/31/2016 History of pulmonary embolism [Z86.711] 02/17/2016 Heart failure with preserved ejection fraction *09/16/2021 Orthopedic aftercare [Z47.89] 05/24/2015 Dizziness and giddiness [R42] 08/17/2010 Aortic valve disorder [I35.9] 04/11/2022 Accident due to mechanical fall without injury *05/09/2022 Abrasion of right knee [S80.211A] 05/09/2022 Exudative age-related macular degeneration, lef*05/09/2022 Nonexudative age-related macular degeneration, *05/09/2022 Bilateral pseudophakia [Z96.1] 05/09/2022 Prescriptions ordered this encounter Disp Refills Start End CPAP/BIPAP/OTHER 1 Ea* 0 07/19/2022 12/03/2049 Class: In Office Sig: Type .CPAPSettings into a note to see current settings/supplies/DME information. Encounter Status:Closed by SHELLY KIRKPATRICK on 07/19/22 [facility] Telephone ([facility]) IVON WISEMAN ([id number]) 1955 F Date Time Provider Department 07/19/22 MIRLANDE ARIAS [facility] During your visit today, we recorded the following information about you: Shelly Kirkpatrick 07/19/2022 2:58 PM Signed Faxed order, office notes, demographics, and sleep study to: DME name: [facility] DME fax: [phone] DME ph: WITH CONFIRMATION Allergies As of Date: 07/19/2022 Noted Allergy Reaction FLECAINIDE 12/18/2012 4 - Hives Date Reviewed: 06/27/2022 Reviewed by: Kathe Caraballo MD - Fully Assessed Reason for Visit: PAP Rx Faxed [[id number]] Cmt: DME: [facility] Prescriptions as of 07/19/2022 - CPAP/BIPAP/OTHER Type .CPAPSettings into a note to see current settings/supplies/DME information. - CPAP/BIPAP/OTHER Type .CPAPSettings into a note to see current settings/supplies/DME information. - CPAP/BIPAP/OTHER Type .CPAPSettings into a note to see current settings/supplies/DME information. - armodafinil (NUVIGIL) 200 mg tab Take 200 mg by mouth once daily. - CPAP autoPAP 13-20 cmH2O, mask, tubing, filters, heated humidity, lifetime supplies. Please fax 09-04 compliance download to [phone] ([place] [employer]). Dx: TEETEE - celecoxib (CELEBREX) 200 mg capsule Take 1 capsule by mouth once daily. - budesonide-formoterol 160-4.5 mcg/actuation inhaler Inhale 2 Puffs as instructed twice daily. - Zolpidem (AMBIEN CR) 12.5 mg CR tablet Take 1 tablet by mouth at bedtime as needed. - metoprolol tartrate, short acting, 25 mg tablet Take 1 tablet by mouth once daily. - warfarin (COUMADIN) 5 mg tablet Take 1 tablet by mouth daily as directed. 9 mg daily - warfarin (COUMADIN) 4 mg tablet Take 1 tablet by mouth once daily. 9 mg daily - pregabalin 75 mg capsule Take 1 capsule by mouth twice daily. - pramipexole (MIRAPEX) 0.5 mg tablet Take 0.5 mg by mouth twice daily. - olmesartn/hydrochlorot hiazide(BENICAR HCT 40 MG-12.5 MG TAB) Take one(1) tablet daily. - atorvastatin calcium(LIPITOR 20 MG TAB) Take one(1) tablet daily. - multivitamins(MULTIPLE VITAMIN TAB) Take one(1) tablet daily. - calcium carbonate(CALTRATE 600 600 MG (1,500 MG) TAB) Take two(2) tablets daily. Meds Comments as of 05/09/2022: 05/09/22 The medications are managed by this patient by: PATIENT Juan Geller, OA Problem List As Of Date 07/19/2022 Noted Resolved TEETEE (obstructive sleep apnea) [G47.33] 12/18/2012 Obesity [E66.9] 12/18/2012 COPD (chronic obstructive pulmonary disease) (H*12/18/2012 RLS (restless legs syndrome) [G25.81] 12/18/2012 DVT (deep venous thrombosis) (HCC) [I82.409] 01/06/2013 Pulmonary embolism (HCC) [I26.99] 01/06/2013 Atrial fibrillation (HCC) [I48.91] 05/06/2010 06/06/2010 Coronary artery disease [I25.10] Urinary tract infection [N39.0] 09/16/2021 Type 2 diabetes mellitus without complications *05/05/2021 Triggering of digit [M65.30] 03/24/2022 Shortness of breath [R06.02] 12/22/2020 Sepsis (HCC) [A41.9] 09/16/2021 Primary localized osteoarthritis [M19.91] 01/03/2011 Pneumonia [J18.9] 05/09/2022 Pain of hand [M79.643] 03/24/2022 Other specified symptoms and signs involving th*04/27/2021 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, 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 (HCC) [F11.20] 07/16/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 current use of anticoagulant therapy *05/09/2022 Hyperlipidemia [E78.5] 08/31/2016 History of pulmonary embolism [Z86.711] 02/17/2016 Heart failure with preserved ejection fraction *09/16/2021 Orthopedic aftercare [Z47.89] 05/24/2015 Dizziness and giddiness [R42] 08/17/2010 Aortic valve disorder [I35.9] 04/11/2022 Accident due to mechanical fall without injury *05/09/2022 Abrasion of right knee [S80.211A] 05/09/2022 Exudative age-related macular degeneration, lef*05/09/2022 Nonexudative age-related macular degeneration, *05/09/2022 Bilateral pseudophakia [Z96.1] 05/09/2022 Encounter Status:Closed by SHELLY KIRKPATRICK on 07/19/22 [facility] Sil 06-21-2022 [facility] Telephone ([facility]) IVON WISEMAN ([id number]) 1955 F Date Time Provider Department 06/21/22 MIRLANDE ARIAS [facility] During your visit today, we recorded the following information about you: Vikas Mello MA 06/21/2022 11:13 AM Signed Sent demographics, script and office note To:[facility] Fax:[phone] Phone: Allergies As of Date: 06/21/2022 Noted Allergy Reaction FLECAINIDE 12/18/2012 4 - Hives Date Reviewed: 05/09/2022 Reviewed by: Kathe Caraballo MD - Fully Assessed Reason for Visit: PAP Rx Faxed [1132] Prescriptions as of 06/21/2022 - CPAP/BIPAP/OTHER Type .CPAPSettings into a note to see current settings/supplies/DME information. - CPAP/BIPAP/OTHER Type .CPAPSettings into a note to see current settings/supplies/DME information. - armodafinil (NUVIGIL) 200 mg tab Take 200 mg by mouth once daily. - CPAP autoPAP 13-20 cmH2O, mask, tubing, filters, heated humidity, lifetime supplies. Please fax 7-10 compliance download to [phone] ([place]). Dx: TEETEE - celecoxib (CELEBREX) 200 mg capsule Take 1 capsule by mouth once daily. - budesonide-formoterol 160-4.5 mcg/actuation inhaler Inhale 2 Puffs as instructed twice daily. - Zolpidem (AMBIEN CR) 12.5 mg CR tablet Take 1 tablet by mouth at bedtime as needed. - metoprolol tartrate, short acting, 25 mg tablet Take 1 tablet by mouth once daily. - warfarin (COUMADIN) 5 mg tablet Take 1 tablet by mouth daily as directed. 9 mg daily - warfarin (COUMADIN) 4 mg tablet Take 1 tablet by mouth once daily. 9 mg daily - pregabalin 75 mg capsule Take 1 capsule by mouth twice daily. - pramipexole (MIRAPEX) 0.5 mg tablet Take 0.5 mg by mouth twice daily. - olmesartn/hydrochlorot hiazide(BENICAR HCT 40 MG-12.5 MG TAB) Take one(1) tablet daily. - atorvastatin calcium(LIPITOR 20 MG TAB) Take one(1) tablet daily. - multivitamins(MULTIPLE VITAMIN TAB) Take one(1) tablet daily. - calcium carbonate(CALTRATE 600 600 MG (1,500 MG) TAB) Take two(2) tablets daily. Meds Comments as of 05/09/2022: 05/09/22 The medications are managed by this patient by: PATIENT Juan Geller, OA Problem List As Of Date 06/21/2022 Noted Resolved TEETEE (obstructive sleep apnea) [G47.33] 12/18/2012 Obesity [E66.9] 12/18/2012 COPD (chronic obstructive pulmonary disease) (H*12/18/2012 RLS (restless legs syndrome) [G25.81] 12/18/2012 DVT (deep venous thrombosis) ([facility]) [I82.409] 01/06/2013 Pulmonary embolism ([facility]) [I26.99] 01/06/2013 Atrial fibrillation ([facility]) [I48.91] 05/06/2010 06/06/2010 Coronary artery disease [I25.10] Urinary tract infection [N39.0] 09/16/2021 Type 2 diabetes mellitus without complications *05/05/2021 Triggering of digit [M65.30] 03/24/2022 Shortness of breath [R06.02] 12/22/2020 Sepsis (HCC) [A41.9] 09/16/2021 Primary localized osteoarthritis [M19.91] 01/03/2011 Pneumonia [J18.9] 05/09/2022 Pain of hand [M79.643] 03/24/2022 Other specified symptoms and signs involving th*04/27/2021 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, 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 (HCC) [F11.20] 07/16/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 current use of anticoagulant therapy *05/09/2022 Hyperlipidemia [E78.5] 08/31/2016 History of pulmonary embolism [Z86.711] 02/17/2016 Heart failure with preserved ejection fraction *09/16/2021 Orthopedic aftercare [Z47.89] 05/24/2015 Dizziness and giddiness [R42] 08/17/2010 Aortic valve disorder [I35.9] 04/11/2022 Accident due to mechanical fall without injury *05/09/2022 Abrasion of right knee [S80.211A] 05/09/2022 Exudative age-related macular degeneration, lef*05/09/2022 Nonexudative age-related macular degeneration, *05/09/2022 Bilateral pseudophakia [Z96.1] 05/09/2022 Encounter Status:Closed by VIKAS MELLO on 06/21/22 [facility] Absolute lymphocyte countOrd ered By: Dr. Corral on 04-05-2022 Lymphocytes Auto (Unsp spec) [#/Vol] 1.89 10*3/uL 0.83-4.[address] [facility] Basophil percentageOrdered B y: Dr. Corral on 04-05-2022 Basophils/100 WBC (Bld) 0.6 % 0-1 [facility] Bilirubin [Mass/Vol] 0.40 mg/dL 0.20-1.00 [facility] Comment on above: For patients on eltr ombopag therapy, use of Dimension [place] TBIL is not recommended. Chloride [Moles/Vol] 109 mmol/L 98-107 [facility] Cholesterol [Mass/Vol] 151 mg/dL <200 [facility] Comment on above: <200 mg/dL Desirable 200-240 mg/dL Borderline >240 mg/dL High Risk Eosinophils/100 WBC (Bld) 2.2 % 0-[address] [facility] Glucose [Mass/Vol] 133 mg/dL 74-106 [facility] Comment on above: Fasting Glucose resu lt greater than or equal to 126 mg/dL suggests DIABETES MELLITUS per A.D.A. criteria. Neutrophils (Bld) [#/Vol] 4.1 10*3/uL 2.0-7.[address] [facility] Neutrophils/100 WBC (Bld) 61.3 % 47-[address] [facility] Potassium [Moles/Vol] 4.0 mmol/L 3.5-5.1 [facility] Protein [Mass/Vol] 7.2 g/dL 6.4-8.2 [facility] Sodium [Moles/Vol] 140 mmol/L 136-145 [facility] Triglyceride [Mass/Vol] 174 mg/dL <199 [facility] Comment on above: The drugs N-Acetylcy steine and Metamizole may falsely depress this assay.Serum Triglycerides Reference Interval Normal <150 mg/dL Borderline high 150 - 199 mg/dL High 200 - 499 mg/dL Very High > or = 500 mg/dL WBC (Bld) [#/Vol] 6.8 10*3/uL 4.4-11.0 [facility] Blood erythrocytes count (nu mber/volume)Ordered By: Dr. Corral on 04-05-2022 RBC (Bld) [#/Vol] 4.13 10*6/uL 4.2-5.[address] [facility] Blood hemoglobin measurement (mass/volume)Ordered By: Dr. Corral on 04-05-2022 Hemoglobin (Bld) [Mass/Vol] 12.9 g/dL 12.0-15.[address] [facility] Blood lymphocytes/100 leukoc ytesOrdered By: Dr. Corral on 04-05-2022 Lymphocytes/100 WBC (Bld) 28.0 % 19-[address] [facility] Blood monocytes/100 leukocyt esOrdered By: Dr. Corral on 04-05-2022 Monocytes/100 WBC (Bld) 7.6 % 0-10 [facility] Blood platelet mean volumeOr dered By: Dr. Corral on 04-05-2022 Platelet mean volume (Bld) [Entitic vol] 10.0 fL 6.2-12.[address] [facility] Determination of erythrocyte mean corpuscular volume (MCV)Ordered By: Dr. Corral on 04-05-2022 MCV (RBC) [Entitic vol] 95.2 fL 81-99 [facility] Hematocrit Auto (Bld) [Volum e fraction]Ordered By: Dr. Corral on 04-05-2022 Hematocrit (Bld) [Volume fraction] 39.3 % 37-[address] [facility] Laboratory - Chemistry and C hemistry - challengeOrdered By: Dr. Corral on 04-05-2022 ALP [Catalytic activity/Vol] 85 U/L 45-[address] [facility] ALT [Catalytic activity/Vol] 18 U/L 13-[address] [facility] CO2 [Moles/Vol] 25.0 mmol/L 21.0-32.[address] [facility] Globulin (S) [Mass/Vol] 3.8 g/dL 2.2-4.2 [facility] Urea nitrogen/Creatinine [Mass ratio] 30.9 mg/mg 10-[address] [facility] Laboratory - Hematology and Cell countsOrdered By: Dr. Corral on 04-05-2022 Erythrocyte distribution width (RBC) [Entitic vol] 49.5 fL 35.1-43.9 [facility] Erythrocyte distribution width (RBC) [Ratio] 14.1 % 11.6-14.[address] [facility] Immature granulocytes/100 WBC (Bld) 0.300 % 0.0-0.[address] [facility] Comment on above: IG% - Immature Granu locytes (promyelocytes, myelocytes and metamyelocytes) > 1% indicates that a LEFT SHIFT is Present. MCH (RBC) [Entitic mass] 31.2 pg 27.0-32.[address] [facility] Nucleated RBC/100 WBC (Bld) [Ratio] 0 % 0-[address] [facility] MCHC Auto (RBC) [Mass/Vol]Or dered By: Dr. Corral on 04-05-2022 MCHC (RBC) [Mass/Vol] 32.8 g/dL 32-36 [facility] No Panel InformationOrdered By: Dr. Corral on 04-05-2022 Estimated GFR (MDRD) Amer 86 mL/min >[address] [facility] Comment on above: GFR Calc Estimated GFR (MDRD) Non-Af Amer 71 mL/min >[address] [facility] Comment on above: Non- GFR Calc Thyroid Stimulating Hormone (TSH) 0.97 uIU/mL 0.358-3.[address] [facility] Vitamin D 25-Hydroxy 33.2 ng/mL [facility] Comment on above: Vitamin D 25(OH) Sta tus Range Deficiency <20 ng/mL (50nmol/L) Insufficiency 20 - 30 ng/mL (50 - 75 nmol/L) Sufficiency 30 - 100 ng/mL (75 - 250 nmol/L) Toxicity >100 ng/mL (>250 nmol/L) Platelets bldOrdered By: Dr. Corral on 04-05-2022 Platelets (Bld) [#/Vol] 187 10*3/uL 150-[address] [facility] Serum or plasma albumin nunu urement (mass/volume)Ordered By: Dr. Corral on 04-05-2022 Albumin [Mass/Vol] 3.4 g/dL 3.2-5.0 [facility] Serum or plasma albumin/glob ulin mass ratioOrdered By: Dr. Corral on 04-05-2022 Albumin/Globulin [Mass ratio] 0.9 {ratio} 0.9-2.[address] [facility] Serum or plasma calcium nunu urement (mass/volume)Ordered By: Dr. Corral on 04-05-2022 Calcium [Mass/Vol] 8.8 mg/dL 8.5-10.1 [facility] Serum or plasma cholesterol in HDL measurement (mass/volume)Ordered By: Dr. Corral on 04-05-2022 Cholesterol in HDL [Mass/Vol] 66 mg/dL >[address] [facility] Comment on above: The drugs N-Acetylcy steine and Metamizole may falsely depress this assay. Reference Range HDL <40 mg/dL Low HDL Cholesterol HDL >or= 60 mg/dL High HDL Cholesterol Serum or plasma cholesterol in VLDL measurement (mass/volume)Ordered By: Dr. Corral on 04-05-2022 Cholesterol in VLDL [Mass/Vol] 35 mg/dL 5-[address] [facility] Serum or plasma creatinine m easurement (mass/volume)Ordered By: Dr. Corral on 04-05-2022 Creatinine [Mass/Vol] 0.84 mg/dL 0.55-1.02 [facility] Comment on above: The validity of the calculated GFR & GFRAA in patients over 70 years has not been determined. Clinical correlation is essential. Serum or plasma low density lipoprotein (LDL) cholesterol measurement (mass/volume)Ordered By: Dr. Corral on 04-05-2022 Cholesterol in LDL [Mass/Vol] 50 mg/dL 0-[address] [facility] Serum or plasma urea nitroge n measurement (mass/volume)Ordered By: Dr. Corral on 04-05-2022 Urea nitrogen [Mass/Vol] 26 mg/dL 7-[address] [facility] Thin prep Papanicolaou smear with manual screeningOrdered By: Dr. Corral on 04-05-2022 Thin prep Papanicolaou smear with manual screening 16 U/L 15-[address] [facility] Thin prep Papanicolaou smear with manual screening 6 5-[address] [facility] Laboratory - Drug toxicology Ordered By: Dr. Welsh on 03-22-2022 Amphetamines Ql (U) Negative <1000 ng/mL [facility] Benzodiazepines Ql (U) Negative < 200 ng/mL [facility] Cannabinoids Screen Ql (U) Negative < 50 ng/mL [facility] Cocaine Ql (U) Negative < 300 ng/mL [facility] Opiates Ql (U) Positive < 300 ng/mL [facility] No Panel InformationOrdered By: Dr. Welsh on 03-22-2022 MDMA (Ecstasy) Screen Positive < 500 ng/mL [facility] Miscellaneous Test See comment [facility] Comment on above: [id number] 6+OXYCODONE-B UND (ng/mL) DRUG RESULT SCREEN CUTOFF____ Amphetamines,Urine Negative ng/mL 1000 Amphetamine test includes Amphetamine and Methamphetamine.Barbiturates Negative ng/mL 200Benzodiazepines Negative ng/mL 200Cannabinoid Negative ng/mL 20Cocaine (Metab) Negative ng/mL 300Opiates Positive ng/mL 300 Opiates test includes Codeine, Morphine, Hydromorphone, Hydrocodone. Codeine Negative 300 Morphine Negative 300 Hydromorphone Negative 300 Hydrocodone PositiveHydrocodone Conf,MS,UR 846 ng/mL 300Oxycodone/Oxymorphone,Urine Negative ng/mL 300 Test includes Oxydodone and Oxymorphone. TESTING PERFORMED AT [facility]. ORIGINAL REPORT ON FILE IN LAB CONTAINS ADDITIONAL TEST SITE INFORMATION. Urine Barbiturates Screen Negative < 200 ng/mL [facility] Urine Drug Screen Comment [facility] Comment on above: CONFIRMATORY TESTING FOR ALL POSITIVE URINE DRUG SCREENRESULTS WILL ONLY BE SENT OUT UPON PHYSICIAN ORDER. VISTA Urine Drug Screen methods provide only preliminaryanalytical test results. A more specific alternate chemicalmethod must be used in order to obtain a confirmedanalytical result. Gas chromatography/mass spectrometery(GC/MS) is the preferred confirmatory method. Clinicalconsideration and professional judgement should be appliedto any drug of abuse test result, particularly whenpreliminary positive results are used. URINE TCA TESTING MUST BE ORDERED SEPARATELY. USE TESTMNEMONIC: [facility] Urine Methadone Screen Negative < 300 ng/mL [facility] Urine phencyclidine (PCP) de tectionOrdered By: Dr. Welsh on 03-22-2022 Phencyclidine Ql (U) Negative < 25 ng/mL [facility] INR in Blood by Coagulation assayOrdered By: Dr. Corral on 01-21-2022 INR Coag (Bld) [Relative time] 1.3 {INR} [facility] Laboratory - CoagulationOrde red By: Dr. Corral on 01-21-2022 PT Coag (PPP) [Time] 15.8 s 11.7-14.9 [facility] EMERGENCY DEPARTMENTon 09-24 [place] [address] HEALTH INFORMATION MANAGEMENT EMERGENCY DEPARTMENT : [id number] Signed Patient: IVON WISEMAN Acct:[id number] MRUN : [id number] : 1955 Sex: F Loc: ICU ADM Date: Room/Bed: [facility] DISC Date: 09/22/21 History of Present Illness - General Chief Complaint: Syncopal Stated Complaint: NAUSEA LIGHT HEADED FEELS SYNCOPAL Symptom onset: YESTERDAY HPI: PATIENT STATES I GET DIZZY WHEN I STAND UP AND IF I EVEN LOOK AT FOOD I GET NAUSEOUS, AND I JUST HAVE NO ENERGY. ITS BEEN LIKE THIS SINCE YESTERDAY. Source: Patient, RN notes reviewed, Old records Mode of Transport: Wheelchair - History of Present Illness Initial Comments: Patient presents the ED with family member complaint of just not feeling well nauseous anorexic. The nausea began this morning but in general her illness began yesterday. She states she did not feel well last evening she was shivering and was sweating despite having a blanket. She denies any cough or shortness of breath no abdominal pain she does have nausea no associated diarrhea no ill contacts. She has no myalgias arthralgias she has been vaccinated and had 1 COVID booster. She does have chronic A. fib she takes metoprolol and Coumadin regularly. - Related Data Home Medications Medication Instructions Recorded Confirmed Albuterol Sulfate [Proair Hfa] 2 puff IN Q4H PRN 09/16/21 09/16/21 Atorvastatin Calcium [Lipitor 20 20 mg PO QHS 09/16/21 09/16/21 mg Tablet] Calcium Carbonate [Calcium] 2 tab PO DAILY 09/16/21 09/16/21 Celecoxib [Celebrex 200 mg Capsule] 1 cap PO DAILY 09/16/21 09/16/21 Hydrocodone Bit/Acetaminophen 1 tab PO BID 09/16/21 09/16/21 [Palo 5/325 mg Tablet] Metoprolol Succinate [Toprol Xl 25 25 mg PO BID 09/16/21 09/16/21 mg Tablet] Olmesartan Medoxomil [Benicar] 1 tab PO DAILY 09/16/21 09/16/21 Pramipexole Di-HCl [Mirapex] 0.5 mg PO BID 09/16/21 09/16/21 Solifenacin Succinate [Vesicare] 5 mg PO DAILY 09/16/21 09/16/21 Trazodone HCl [Desyrel 50 mg 50 mg PO BID 09/16/21 09/16/21 Tablet] Vit A/Vit C/Vit E/Zinc/Copper 1 tab PO DAILY 09/16/21 09/16/21 [Preservision Areds Tablet] Vortioxetine Hydrobromide 20 mg PO DAILY 09/16/21 09/16/21 [Trintellix] Warfarin Sodium [Coumadin 6 mg 6 mg PO QHS 09/16/21 09/16/21 Tablet] Allergies Allergy/AdvReac Type Severity Reaction Status Date / Time flecainide Allergy Verified 09/16/21 14:32 Review of System - Constitutional Constitutional: Present: see HPI, fever, weakness, Obese - CV Cardiology: Present: see HPI, palpitations - GI Gastrointestinal/Abdom inal: Present: see HPI, nausea. Absent: abdominal pain, constipation, diarrhea - Genitourinary Symptoms: Absent: dysuria - Neuro Neurological: Absent: headache, weakness - Muskuloskeletal Musculoskeletal: Absent: back pain, joint pain, joint swelling - Integumentary Skin: Absent: lesions, rash - All Others/Exceptions All Other Systems: Reviewed and Negative Except Where Noted in Documentation ED PMH/Social HX/Family HX - Respiratory Hx Respiratory Disorders: Yes PMH--Respiratory: COPD - Cardiovascular Hx Cardiac Disorders: Yes PMH--Cardiovascular: Atrial Fib, CHF, HTN, Hypercholesterolemia - Neurological Hx Neurological Disorder: No - Endocrine Hx Endocrine Disorders: No - Gastrointestinal Hx Gastrointestinal Disorders: No - Genitourinary Hx Genitourinary Disorders: No - Musculoskeletal Hx Musculoskeletal Disorders: Yes PMH--Musculoskeletal: Arthritis, Degen. Disk Disease, Fibromyalgia - Reproductive ?: No Hx Reproductive Disorders: No - Psychological Hx Psychosocial Problems: No - HEENT Hx Ear, Nose Throat Disorders: No - Cancer Hx Cancer: No - Social History Able to Read: Yes Able to Write: Yes Smoking Status: Never Smoked Hx Chewing Tobacco Use: No Alcohol Use: Never Any recreational drug use reported?: No Feels Threatened In Home Environment: No Feels Threatened In a Relationship: No - [place]-Suicide Severity Rating Scale 1) Wish to be :: No 2) Suicidal Thoughts:: No 3) Suicidal Thoughts with Method (without specific plan or intent to act):: No 4) Suicidal Intent (WITHOUT Specific Plan):: No 5) Suicidal Intent (WITH Specific Plan):: No 6) Suicidal Behavior Question (A): LIFETIME: No 6) Suicidal Behavior Question (B): PAST 3 MONTHS: No Patient Safety Strategies Initiated?: No General Exam - General Limitations: Complains of: no limitations Constitutional: Present: see HPI, Well developed, Well nourished, well hydrated, Non-toxic, fever - Head Head exam: Present: atraumatic, normocephalic, normal inspection - Eye Eye exa (more content not included)... Normal [facility] Absolute immature granulocyt e countOrdered By: ADRIANE WAYNE on 09-22-2021 Immature granulocytes (Bld) [#/Vol] 0 10*3/uL 0.00-0.10 [facility] Absolute lymphocyte countOrd ered By: ADRIANE WAYNE on 09-22-2021 Lymphocytes Auto (Unsp spec) [#/Vol] 2.60 10*3/uL 1.30-2.90 [facility] Automated blood eosinophils/ 100 leukocytesOrdered By: ADRIANE WAYNE on 09-22-2021 Eosinophils/100 WBC (Bld) 0 % 1-3 [facility] Basic Metabolic Panelon 08-27 Anion gap [Moles/Vol] 10.8 mmol/L Normal 8.0-16.0 [facility] Comment on above: Performed By: #### C BCS #### [facility] [address] [place] [address] Calcium [Mass/Vol] 8.6 mg/dL Normal 8.2-10.0 [facility] Comment on above: Performed By: #### C BCS #### [facility] [address] [place] [address] Chloride [Moles/Vol] 105 mmol/L Normal 94-110 [facility] Comment on above: Performed By: #### C BCS #### [facility] [address] [place] [address] CO2 [Moles/Vol] 30 mmol/L Normal 21-34 [facility] Comment on above: Performed By: #### C BCS #### [facility] [address] [place] [address] Creatinine [Mass/Vol] 1.14 mg/dL High 0.51-0.95 [facility] Comment on above: Performed By: #### C BCS #### [facility] [address] [place] [address] EGFR Other Races 47 Abnormal >60 [facility] Comment on above: Performed By: #### C BCS #### [facility] [address] [place] [address] GFR/1.73 sq M.predicted among blacks MDRD (S/P/Bld) [Vol rate/Area] 57 mL/min/{1.73_m2} Abnormal >60 [facility] Comment on above: Result Comment: [employer] Kidney Disease less than 60 mL/min/1.73 m2 Kidney Failure less than 15 mL/min/1.73 m2 Average estimated GFR by age: 60-69 years 85 mL/min/1.73 m2 Performed By: #### C BCS #### [facility] [address] [place] [address] Glucose [Mass/Vol] 128 mg/dL High 65-100 [facility] Comment on above: Performed By: #### C BCS #### [facility] [address] [place] [address] Potassium [Moles/Vol] 3.8 mmol/L Normal 3.3-5.1 [facility] Comment on above: Performed By: #### C BCS #### [facility] [address] [place] [address] Sodium [Moles/Vol] 142 mmol/L Normal 132-145 [facility] Comment on above: Performed By: #### C BCS #### [facility] [address] [place] [address] Urea nitrogen [Mass/Vol] 23.2 mg/dL Normal 3.2-26.9 [facility] Comment on above: Performed By: #### C BCS #### [facility] [address] [place] [address] Urea nitrogen/Creatinine [Mass ratio] 20 mg/mg Normal 6-20 [facility] Comment on above: Performed By: #### C BCS #### [facility] [address] [place] [address] Basophils/100 WBC Manual cnt (Body fld)Ordered By: ADRIANE WAYNE on 09-22-2021 Basophils/100 WBC (Body fld) 1 % 0-1 [facility] Blood lymphocytes variant de tection by light microscopyOrdered By: ADRIANE WAYNE on 09-22-2021 Variant lymphocytes LM Ql (Bld) 1 % [facility] Blood lymphocytes/100 leukoc ytesOrdered By: ADRIANE WAYNE on 09-22-2021 Lymphocytes/100 WBC (Bld) 33 % 17-46 [facility] CBC w/Auto Differentialon Basophils Abs. # 0.08 K/uL Normal 0.00-0.10 [facility] Comment on above: Performed By: #### C OVAG #### [facility] [address] [place] [address] Basophils/100 WBC (Bld) 1.0 % Normal 0.2-1.0 [facility] Comment on above: Performed By: #### C OVAG #### [facility] [address] [place] [address] Eosinophils (Bld) [#/Vol] 0.00 10*3/uL Normal 0.00-0.2 0 [facility] Comment on above: Performed By: #### C OVAG #### [facility] [address] [place] [address] Eosinophils/100 WBC (Bld) 0.0 % Low 0.9-2.9 [facility] Comment on above: Performed By: #### C OVAG #### [facility] [address] [place] [address] Erythrocyte distribution width (RBC) [Ratio] 14.9 % High 11.5-14.5 [facility] Comment on above: Performed By: #### C OVAG #### [id number] [place] [address] Hematocrit (Bld) [Volume fraction] 28.7 % Low 33.4-46.0 [facility] Comment on above: Performed By: #### C OVAG #### [facility] [address] [place] [address] Hemoglobin (Bld) [Mass/Vol] 9.1 g/dL Low 11.1-13.7 [facility] Comment on above: Performed By: #### C OVAG #### [facility] [address] [place] [id number] Imm Grans % 0.00 % Normal 0.00-1.00 [facility] Comment on above: Performed By: #### C OVAG #### [id number] [place] [id number] Imm Grans Absolute # 0.00 K/uL Normal 0.00-0.10 [facility] Comment on above: Performed By: #### C OVAG #### [address] [place] [address] Lymphocytes (Bld) [#/Vol] 2.60 10*3/uL Normal 1.30-2.9 0 [facility] Comment on above: Performed By: #### C OVAG #### [facility] [address] [place] [address] Lymphocytes/100 WBC (Bld) 33.0 % Normal 17.0-45.5 [facility] Comment on above: Performed By: #### C OVAG #### [facility] [address] [place] [address] MCH (RBC) [Entitic mass] 30.8 pg Normal 27.0-31.0 [facility] Comment on above: Performed By: #### C OVAG #### [facility] [address] [place] [address] MCHC (RBC) [Mass/Vol] 31.7 g/dL Low 33.0-37.0 [facility] Comment on above: Performed By: #### C OVAG #### [facility] [address] [place] [address] MCV (RBC) [Entitic vol] 97.3 fL Normal 81.0-99.0 [facility] Comment on above: Performed By: #### C OVAG #### [facility] [address] [place] [address] Monocytes (Bld) [#/Vol] 0.10 10*3/uL Low 0.30-0.80 [facility] Comment on above: Performed By: #### C OVAG #### [facility] [address] [place] [address] Monocytes/100 WBC (Bld) 1.0 % Low 5.5-11.7 [facility] Comment on above: Performed By: #### C OVAG #### [facility] [place] [address] [facility] [place] [address] Neutrophils Abs. # 4.80 K/uL Normal 2.20-4.80 [facility] Comment on above: Performed By: #### C OVAG #### [facility] [place] [address] [facility] [place] [address] Neutrophils/100 WBC (Bld) 64.0 % Normal 43.0-65.0 [facility] Comment on above: Performed By: #### C OVAG #### [facility] [place] [address] [facility] [place] [address] Platelet mean volume (Bld) [Entitic vol] 9.9 fL Normal 7.4-10.4 [facility] Comment on above: Performed By: #### C OVAG #### [facility] [place] [address] [facility] [place] [address] Platelets (Bld) [#/Vol] 198 10*3/uL Normal 148-402 [facility] Comment on above: Performed By: #### C OVAG #### [facility] [place] [address] [facility] [place] [address] RBC (Bld) [#/Vol] 2.95 10*6/uL Low 3.83-5.19 [facility] Comment on above: Performed By: #### C OVAG #### [facility] [place] [address] [facility] [place] [address] WBC (Bld) [#/Vol] 7.5 10*3/uL Normal 3.6-10.8 [facility] Comment on above: Performed By: #### C OVAG #### [facility] [place] [address] [facility] [place] [address] Culture with gram stain, bod y fluidOrdered By: ADRIANE WAYNE on 09-22-2021 MCH (RBC) [Entitic mass] 30.8 pg 27.0-31.0 [facility] Differential Manualon 2021 Anisocytosis [employer] TEACHER Normal [facility] Comment on above: Performed By: #### D IFF #### [facility] [place] [address] [place] [address] Basophilic Stippling [employer] TEACHER Normal [facility] Comment on above: Performed By: #### D IFF #### [facility] [place] [address] [place] [address] Basophils 1 % Normal 0-1 [facility] Comment on above: Performed By: #### D IFF #### [facility] [place] [address] [place] [address] Blast. [employer]IGN TR[employer] TEACHER Normal 0-0 [facility] Comment on above: Performed By: #### D IFF #### [facility] [place] [address] [place] [address] Roxana Cell [employer] TRADE TEACHER Normal [facility] Comment on above: Performed By: #### D IFF #### [facility] [place] [address] [place] [address] Bruin Rings [employer]IGN TRADE TEACHER Normal [facility] Comment on above: Performed By: #### D IFF #### [facility] [place] [address] [place] [address] Crenated Cells [employer]IGN TRADE TEACHER Normal [facility] Comment on above: Performed By: #### D IFF #### [facility] [place] [address] [facility] [address] Dohle Bodies FOREIGN TRADE TEACHER Normal [facility] Comment on above: Performed By: #### D IFF #### [facility] [place] [address] [place] [address] Eosinophils 0 % Low 1-3 [facility] Comment on above: Performed By: #### D IFF #### [facility] [place] [address] [place] [address] Fragmented Cells [employer] TRADE TEACHER Normal [facility] Comment on above: Performed By: #### D IFF #### [facility] [place] [address] [place] [address] Morgan Bodies FOREIGN TRADE TEACHER Normal [facility] Comment on above: Performed By: #### D IFF #### [facility] [place] [address] [facility] [place] [address] Simpson-[place] Bodies FOREIGN TRADE TEACHER Normal [facility] Comment on above: Performed By: #### D IFF #### [facility] [place] [address] [facility] [place] [address] Hyperchromia [employer]IGN TRADE TEACHER Normal [facility] Comment on above: Performed By: #### D IFF #### [facility] [place] [address] [facility] [place] [address] Hypochromia FOREIGN TRADE TEACHER Normal [facility] Comment on above: Performed By: #### D IFF #### [facility] [place] [address] [facility] [place] [address] Immature Cells [employer]EIGN TR[employer] TEACHER Normal [facility] Comment on above: Performed By: #### D IFF #### [facility] [place] [address] [place] [address] Lymphocytes 33 % Normal 17-46 [facility] Comment on above: Performed By: #### D IFF #### [facility] [place] [address] [place] [address] Lymphocytes Atypical 1 % Normal [facility] Comment on above: Performed By: #### D IFF #### [facility] [place] [address] [place] [address] Lymphocytes Reactive [employer] TR[employer] TEACHER Normal [facility] Comment on above: Performed By: #### D IFF #### [facility] [place] [address] [place] [address] Macrocytosis FOREIGN TRADE TEACHER Normal [facility] Comment on above: Performed By: #### D IFF #### [facility] [place] [address] [place] [address] Metamyelocytes [employer] TEACHER Normal 0-0 [facility] Comment on above: Performed By: #### D IFF #### [facility] [place] [address] [place] [address] Microcytic FOREIGN TRADE TEACHER Normal [facility] Comment on above: Performed By: #### D IFF #### [facility] [place] [address] [place] [address] Monoblasts FOREIGN TR[employer] TEACHER Normal [facility] Comment on above: Performed By: #### D IFF #### [facility] [place] [address] [place] [address] Monocytes 1 % Low 6-12 [facility] Comment on above: Performed By: #### D IFF #### [facility] [place] [address] [place] [address] Myeloblasts FOREIGN TRADE TEACHER Normal [facility] Comment on above: Performed By: #### D IFF #### [facility] [place] [address] [place] [address] Myelocytes FOREIGN TRADE TEACHER Normal 0-0 [facility] Comment on above: Performed By: #### D IFF #### [facility] [place] [address] [facility] [place] [address] Neutrophils 64 % Normal 43-65 [facility] Comment on above: Performed By: #### D IFF #### [facility] [place] [address] [facility] [place] [address] Nucleated RBC [employer] TR[employer] TEACHER Normal 0-0 [facility] Comment on above: Performed By: #### D IFF #### [facility] [place] [address] [facility] [place] [address] Ovalocytes FOREIGN TRADE TEACHER Normal [facility] Comment on above: Performed By: #### D IFF #### [facility] [place] [address] [facility] [place] [address] Platelet Slide Review FOREIGN TRADE TEACHER Normal [facility] Comment on above: Performed By: #### D IFF #### [facility] [place] [address] [facility] [place] [address] Poikilocytosis FOREIGN TRADE TEACHER Normal [facility] Comment on above: Performed By: #### D IFF #### [facility] [place] [address] [place] [address] Polychromasia FOREIGN TRADE TEACHER Normal [facility] Comment on above: Performed By: #### D IFF #### [facility] [place] [address] [facility] [address] Promyelocyte FOREIGN TRADE TEACHER Normal 0-0 [facility] Comment on above: Performed By: #### D IFF #### [facility] [place] [address] [place] [address] Schistocytes FOREIGN TRADE TEACHER Normal [facility] Comment on above: Performed By: #### D IFF #### [facility] [place] [address] [place] [address] Sickle Cells FOREIGN TRADE TEACHER Normal [facility] Comment on above: Performed By: #### D IFF #### [facility] [place] [address] [facility] [place] [address] Smudge Cells FOREIGN TRADE TEACHER Normal [facility] Comment on above: Performed By: #### D IFF #### [facility] [place] [address] [facility] [place] [address] Spherocytes FOREIGN TRADE TEACHER Normal [facility] Comment on above: Performed By: #### D IFF #### [facility] [place] [address] [facility] [address] Target Cells FOREIGN TRADE TEACHER Normal [facility] Comment on above: Performed By: #### D IFF #### [facility] [place] [address] [place] [address] Tear Drop Cells FOREIGN TRADE TEACHER Normal [facility] Comment on above: Performed By: #### D IFF #### [facility] [place] [address] [facility] [place] [address] Toxic Granulation FOREIGN TRADE TEACHER Normal [facility] Comment on above: Performed By: #### D IFF #### [facility] [place] [address] [place] [address] Erythrocyte distribution wid th ratioOrdered By: ADRIANE WAYNE on 09-22-2021 Erythrocyte distribution width (RBC) [Ratio] 14.9 % 11.5-14.5 [facility] INR in Platelet poor plasma by Coagulation assayOrdered By: ADRIANE WAYNE on 09-22-2021 INR Coag (PPP) [Relative time] 2.46 {INR} [facility] Comment on above: 2.0 - 3.0 Group A 2.5 - 3.5 Group B Group A indications: Prophylaxis and treatment of venous thrombosis. Treatment of pulmonary embolism. Prevention of systemic embolism. Tissue heart valves. Acute myocardial infarction. Valvular heart disease. Atrial fibrillation. Group B indications: Mechanical prosthetic valves. . Immature granulocytes/100 WB C Auto (Bld)Ordered By: ADRIANE WAYNE on 09-22-2021 Immature granulocytes/100 WBC (Bld) 0 % 0.00-1.00 [facility] Laboratory - Chemistry and C hemistry - challengeOrdered By: ADRIANE WAYNE on 09-22-2021 Calcium [Mass/Vol] 8.6 mg/dL 8.2-10.0 [facility] Creatinine [Mass/Vol] 1.14 mg/dL 0.51-0.95 [facility] Glucose [Mass/Vol] 128 mg/dL 65-100 [facility] Magnesium [Mass/Vol] 1.7 mg/dL 1.3-2.3 [facility] Urea nitrogen [Mass/Vol] 23.2 mg/dL 3.2-26.9 [facility] Urea nitrogen/Creatinine [Mass ratio] 20 mg/mg 6-20 [facility] Laboratory - Hematology and Cell countsOrdered By: ADRIANE WAYNE on 09-22-2021 Basophils (Bld) [#/Vol] 0.08 10*3/uL 0.00-0.10 [facility] Hematocrit (Bld) [Volume fraction] 28.7 % 33.4-46.0 [facility] MCHC (RBC) [Mass/Vol] 31.7 g/dL 33.0-37.0 [facility] Platelet mean volume (Bld) [Entitic vol] 9.9 fL 7.4-10.4 [facility] Platelets (Bld) [#/Vol] 198 10*3/uL 148-402 [facility] RBC (Bld) [#/Vol] 2.95 10*6/uL 3.83-5.19 [facility] WBC (Bld) [#/Vol] 7.5 10*3/uL 3.6-10.8 [facility] Magnesiumon 09-22-2021 Magnesium [Mass/Vol] 1.7 mg/dL Normal 1.3-2.3 [facility] Comment on above: Performed By: #### C OVAG #### [facility] [address] [place] [address] McvOrdered By: ADRIANE Deleon on 09-22-2021 MCV (RBC) [Entitic vol] 97.3 fL 81.0-99.0 [facility] Monocyte %Ordered By: ADRIANE WAYNE on 09-22-2021 Monocyte % 142 mmol/L 132-145 [facility] Monocyte % 3.8 mmol/L 3.3-5.1 [facility] Monocyte % 105 mmol/L 94-110 [facility] Monocyte % 30 mmol/L 21-34 [facility] Monocyte % 9.1 g/dL 11.1-13.7 [facility] Monocytes (Bld) [#/Vol] 4.80 10*3/uL 2.20-4.80 [facility] Monocytes (Bld) [#/Vol] 0.10 10*3/uL 0.30-0.80 [facility] Monocytes (Bld) [#/Vol] 0 10*3/uL 0.00-0.20 [facility] Monocytes/100 WBC (Bld) 33.0 % 17.0-45.5 [facility] Monocytes/100 WBC (Bld) 1.0 % 0.2-1.0 [facility] Monocytes Manual cnt (Bld) [ #/Vol]Ordered By: ADRIANE WAYNE on 09-22-2021 Monocytes/100 WBC (Bld) 1 % 6-12 [facility] Neutrophils seg % bldOrdered By: ADRIANE WAYNE on 09-22-2021 Segmented neutrophils/100 WBC (Bld) 64.0 % 43.0-65.0 [facility] No Panel InformationOrdered By: ADRIANE WAYNE on 09-22-2021 Estimated GFR (MDRD) Amer 57 >60 [facility] Comment on above: Chronic Kidney Disea se less than 60 mL/min/1.73 m2 Kidney Failure less than 15 mL/min/1.73 m2 Average estimated GFR by age: 60-69 years 85 mL/min/1.73 m2 Estimated GFR (MDRD) Non-Af Amer 47 >60 [facility] Neutrophils (Manual) 64 % 43-65 [facility] Prothrombin Time 22.7 '' 8.9-12.2 [facility] Comment on above: New Reference Ranges effective 2017. PROGRESS NOTEon 09-22-2021 PROGRESS NOTE [address] [address] HEALTH INFORMATION MANAGEMENT PROGRESS NOTE : [phone] Signed Patient: IVON WISEMAN Acct:[id number] MRUN : [id number] : 1955 Sex: F Loc: ICU ADM Date: Room/Bed: 352-A DISC Date: CARDIOLOGY PROGRESS NOTE THIS DOCUMENT HAS BEEN CREATED USING VOICE RECOGNITION SOFTWARE AND MAY CONTAIN GRAMMATICAL, SYNTAX, AND TYPOGRAPHICAL ERRORS. Current Date: 09/22/21 IVON WISEMAN was admitted to MEDICAL SURGICAL service into room 352 on 09/16/21 at 16:17 for complaints of UTI. CC: F/U CHF S: Patient states she feels much better today. No chest pain or pressure. Review of Systems General: Denies: Fever Cardiovascular: Denies: Chest Pain-Sharp, Chest Pain-Heavy, Orthopnea, Short of Breath Cardiology Objective Findings Sepsis focused exam performed?: No General: Yes: Alert, Oriented Lungs: Yes: Clear to auscultation, Normal air movement Cardiovascular: Yes: Irregular rate, Normal S2, Normal S1 Neurological: Yes: Speech Clear Psych/Mental Status: Yes: Mental status NL Vitals and I O: 09/21/21 09/21/21 09/22/21 11:59 23:59 11:59 Weight 259 lb 4.8 oz Intake: IV Intake 200 100 100 Zosyn 4.5 gm Injection 4. 200 100 100 5 gm In Sodium Chloride 0 .9 % 100 ml 100 ml @ 100 mls/hr IVPB Q8H [facility] Rx#: [id number] Intake ml 200 320 240 Oral 120 Output: Output ml 2250 3475 550 Reyes 2250 3475 550 Other: Oral Intake Size Oral Scant Output stool Nonnumeric/ Comment Stool medium large small VITAL SIGNS Temp Pulse Resp BP Pulse Ox FiO2 97.1 F 73 16 137/62 97 09/22/21 07:43 09/22/21 10:50 09/22/21 10:50 09/22/21 07:43 09/22/21 10:50 Radiology-Impressions: See radiology reports in electronic medical record. ASSESSMENT/PLAN Reviewed Vitals, Medications, Labs and Notes. 1) acute on chronic diastolic CHF -Diuresed another about 5L. Has been off oxygen for 2 days. Euvolemic. 2) Afib -Permanent. Rates controlled. Anticoagulation with warfarin. 3) Moderate AI and mild-mod MR -Repeat echo at [facility] in a couple months. Patient states she's going to call for an appointment today. Patient stable to be discharged from cardiac perspective. Initial Admit Date: 09/16/21 Current Date: 09/22/21 Current Registration Status: ADM IN Electronically Generated By: XIOMARA OLMOS MD Generated Date/Time: 09/22/21 1142 Electronically Signed By: XIOMARA OLMOS MD Signed Date/Time 09/22/21 1147 Co Signed Electronically By: Co Signed Date/Time: CC: Normal [facility] Prothrombin Timeon 2 INR Coag (PPP) [Relative time] 2.46 {INR} Normal [facility] Comment on above: Result Comment: 2.0 - 3.0 Group A 2.5 - 3.5 Group B Group A indications: Prophylaxis and treatment of venous thrombosis. Treatment of pulmonary embolism. Prevention of systemic embolism. Tissue heart valves. Acute myocardial infarction. Valvular heart disease. Atrial fibrillation. Group B indications: Mechanical prosthetic valves. . Performed By: #### P T #### [facility] [address] [address] PT Coag (PPP) [Time] 22.7 s High 8.9-12.2 [facility] Comment on above: Result Comment: New Reference Ranges effective 2017. Performed By: #### P T #### [facility] [place] [address] [place] [address] Serum or plasma anion gapOrd ered By: ADRIANE WAYNE on 09-22-2021 Anion gap [Moles/Vol] 10.8 mmol/L 8.0-16.0 [facility] Basic Metabolic Panelon 08-27 Anion gap [Moles/Vol] 11.6 mmol/L Normal 8.0-16.0 [facility] Comment on above: Performed By: #### C BCS #### [facility] [place] [address] [place] [address] Calcium [Mass/Vol] 8.8 mg/dL Normal 8.2-10.0 [facility] Comment on above: Performed By: #### C BCS #### [facility] [place] [address] [place] [address] Chloride [Moles/Vol] 105 mmol/L Normal 94-110 [facility] Comment on above: Performed By: #### C BCS #### [facility] [place] [address] [place] [address] CO2 [Moles/Vol] 29 mmol/L Normal 21-34 [facility] Comment on above: Performed By: #### C BCS #### [facility] [place] [address] [place] [address] Creatinine [Mass/Vol] 1.05 mg/dL High 0.51-0.95 [facility] Comment on above: Performed By: #### C BCS #### [facility] [place] [address] [place] [address] EGFR Other Races 52 Abnormal >60 [facility] Comment on above: Performed By: #### C BCS #### [facility] [place] [address] [place] [address] GFR/1.73 sq M.predicted among blacks MDRD (S/P/Bld) [Vol rate/Area] mL/min/{1.73_m2} Normal >60 [facility] Comment on above: Result Comment: Grinder Operator [employer] carmen Kidney Disease less than 60 mL/min/1.73 m2 Kidney Failure less than 15 mL/min/1.73 m2 Average estimated GFR by age: 60-69 years 85 mL/min/1.73 m2 Performed By: #### C BCS #### [facility] [address] [place] [address] Glucose [Mass/Vol] 118 mg/dL High 65-100 [facility] Comment on above: Performed By: #### C BCS #### [facility] [place] [address] [facility] [place] [address] Potassium [Moles/Vol] 3.6 mmol/L Normal 3.3-5.1 [facility] Comment on above: Performed By: #### C BCS #### [facility] [place] [address] [place] [address] Sodium [Moles/Vol] 142 mmol/L Normal 132-145 [facility] Comment on above: Performed By: #### C BCS #### [facility] [place] [address] [place] [address] Urea nitrogen [Mass/Vol] 21.2 mg/dL Normal 3.2-26.9 [facility] Comment on above: Performed By: #### C BCS #### [facility] [place] [address] [facility] [place] [address] Urea nitrogen/Creatinine [Mass ratio] 20 mg/mg Normal 6-20 [facility] Comment on above: Performed By: #### C BCS #### [facility] [place] [address] [facility] [place] [address] CBC w/Auto Differentialon Basophils Abs. # 0.06 K/uL Normal 0.00-0.10 [facility] Comment on above: Performed By: #### C BCS #### [facility] [place] [address] [facility] [place] [address] Basophils/100 WBC (Bld) 0.8 % Normal 0.2-1.0 [facility] Comment on above: Performed By: #### C BCS #### [facility] [address] [facility] [place] [address] Eosinophils (Bld) [#/Vol] 0.10 10*3/uL Normal 0.00-0.2 0 [facility] Comment on above: Performed By: #### C BCS #### [facility] [address] [facility] [place] [address] Eosinophils/100 WBC (Bld) 1.8 % Normal 0.9-2.9 [facility] Comment on above: Performed By: #### C BCS #### [facility] [address] [facility] [place] [address] Erythrocyte distribution width (RBC) [Ratio] 14.9 % High 11.5-14.5 [facility] Comment on above: Performed By: #### C BCS #### [facility] [place] [address] [facility] [place] [address] Hematocrit (Bld) [Volume fraction] 28.2 % Low 33.4-46.0 [facility] Comment on above: Performed By: #### C BCS #### [facility] [place] [address] [facility] [place] [address] Hemoglobin (Bld) [Mass/Vol] 9.3 g/dL Low 11.1-13.7 [facility] Comment on above: Performed By: #### C BCS #### [facility] [address] [place] [address] Imm Grans % 2.50 % High 0.00-1.00 [facility] Comment on above: Performed By: #### C BCS #### [facility] [address] [place] [address] Imm Grans Absolute # 0.19 K/uL High 0.00-0.10 [facility] Comment on above: Performed By: #### C BCS #### [facility] [address] [place] [address] Lymphocytes (Bld) [#/Vol] 1.70 10*3/uL Normal 1.30-2.9 0 [facility] Comment on above: Performed By: #### C BCS #### [facility] [address] [place] [address] Lymphocytes/100 WBC (Bld) 21.5 % Normal 17.0-45.5 [facility] Comment on above: Performed By: #### C BCS #### [facility] [address] [place] [address] MCH (RBC) [Entitic mass] 31.4 pg High 27.0-31.0 [facility] Comment on above: Performed By: #### C BCS #### [facility] [address] [place] [address] MCHC (RBC) [Mass/Vol] 33.0 g/dL Normal 33.0-37.0 [facility] Comment on above: Performed By: #### C BCS #### [facility] [address] [facility] [place] [address] MCV (RBC) [Entitic vol] 95.3 fL Normal 81.0-99.0 [facility] Comment on above: Performed By: #### C BCS #### [facility] [address] [facility] [place] [address] Monocytes (Bld) [#/Vol] 0.90 10*3/uL High 0.30-0.80 [facility] Comment on above: Performed By: #### C BCS #### [facility] [address] [facility] [place] [address] Monocytes/100 WBC (Bld) 11.5 % Normal 5.5-11.7 [facility] Comment on above: Performed By: #### C BCS #### [facility] [address] [facility] [place] [address] Neutrophils Abs. # 4.75 K/uL Normal 2.20-4.80 [facility] Comment on above: Performed By: #### C BCS #### [facility] [address] [facility] [place] [address] Neutrophils/100 WBC (Bld) 61.9 % Normal 43.0-65.0 [facility] Comment on above: Performed By: #### C BCS #### [facility] [address] [place] [address] Platelet mean volume (Bld) [Entitic vol] 10.4 fL Normal 7.4-10.4 [facility] Comment on above: Performed By: #### C BCS #### [facility] [address] [facility] [place] [address] Platelets (Bld) [#/Vol] 166 10*3/uL Normal 148-402 [facility] Comment on above: Performed By: #### C BCS #### [facility] [address] [place] [address] RBC (Bld) [#/Vol] 2.96 10*6/uL Low 3.83-5.19 [facility] Comment on above: Performed By: #### C BCS #### [facility] [address] [place] [address] WBC (Bld) [#/Vol] 7.7 10*3/uL Normal 3.6-10.8 [facility] Comment on above: Performed By: #### C BCS #### [facility] [address] [place], [place] [id number] PROGRESS NOTEon 09-21-2021 PROGRESS NOTE [address] [id number] HEALTH INFORMATION MANAGEMENT PROGRESS NOTE : [phone] Signed Patient: IVON WISEMAN Acct:[id number] MRUN : [id number] : 1955 Sex: F Loc: ICU ADM Date: Room/Bed: [facility]-A DISC Date: Subjective Assessment Date Of Service: 09/21/21 Events Since Admission: IVON WISEMAN was admitted to MEDICAL SURGICAL service into room 352 on 09/16/21 at 16:17 for complaints of UTI. The patient's laboratory testing and diagnostic testing has been reviewed. Subjective Note: Past 24 hours, net negative -4 L. She has been off oxygen starting yesterday. No overnight acute events. Patient seen today, reports breathing improved. Denies leg swelling currently Discussed INR is high, will hold off discharge Patient nauseated also received Zofran Denies chest pain, palpitations. No fevers or chills Condition: Stable General: Confirms: Weakness, Fatigue. Denies: Fever, Chills, Sweats, Weight Gain, Weight Loss, Other ENT: Denies: Earache, Ear Discharge, Decreased Hearing, Tinnitus, Nose Congestion, Nose Drainage, Nasal Ulcers, Epitaxis, Sore Throat, Throat Swelling, Hoarseness, Loss Of Voice, Tongue Pain, Tongue Swelling, Lip Swelling, Dental Pain, Cervical, Other Respiratory: Confirms: Shortness of Breath (Improved), Dyspnea on Exertion. Denies: Cough, Wheezing, Sputum Production, Hemoptysis, Pleuritic Pain, Other Cardiovascular: Confirms: Orthopnea (Improved ), Short of Breath (improved), Dyspnea on Exertion. Denies: Chest Pain-Sharp, Chest Pain-Heavy, Paroxysmal Noc. Dyspnea, Edema, Palpitations, Light Headedness, Syncope, Diaphoresis, Claudication, Edema, Other Gastrointestinal: Confirms: Nausea. Denies: Vomiting, Abdominal Pain, Diarrhea, Constipation, Melena, Hematochezia, Other Genitourinary: Denies: Dysuria, Frequency, Incontinence, Hematuria, Retention, Other Musculoskeletal: Denies: Neck Pain, Shoulder Pain, Arm Pain, Back Pain, Hand Pain, Leg Pain, Foot Pain, Other Neurological: Confirms: Weakness. Denies: Numbness, Incoordination, Change in Speech, Confusion, Seizures, Other Objective Findings General: Yes: Alert, Oriented (X3), Cooperative/Pleasant, Mild distress HEENT: Yes: Atraumatic, PERRLA, Mucous membr. moist/pink, EOMI. No: Vision Impaired, Hearing Impaired Neck: Yes: Supple. No: JVD Lungs: Yes: Unlabored, Diminished (Basis). No: Exibits Shortness of [place], Pursed Lip Breathing, Use of Accessory Muscles, Retracting Cardiovascular: Yes: Regular rate, Normal S2, Normal S1, No murmurs, Geriatric Assistant Rhythm (Sinus Rhythm). No: Gallops, Rubs, Ectopy Abdomen: Yes: Bowel Sounds X4, Soft, No Tenderness, Flatus. No: Hepatospenomegaly, Masses, Nausea/Vomiting, Emesis Present, Constipation, Diarrhea Genitourinary/Rectal: Yes: Deferred-Not Relevant Extremities: Yes: Normal pulses. No: Clubbing, Cyanosis, No tenderness/swelling, Mottling noted Skin: No: Rashes, Skin Breakdown, Significant lesions, Open Wound Present Neurological: Yes: Speech Clear, Normal tone, Sensation intact, Cognitive Ability Intact Psych/Mental Status: Yes: Mental status NL, Mood Appropriate. No: Hallucinations Vitals and I O: Vital Signs Temperature 97.3 F 09/21/21 08:14 Pulse Rate 88 09/21/21 10:36 Respiratory Rate 20 09/21/21 10:36 Blood Pressure 160/86 09/21/21 08:52 O2 Sat by Pulse Oximetry(%) 97 09/21/21 10:36 FiO2 - Manual Entry Intake Output 09/20/21 09/21/21 09/21/21 23:59 11:59 23:59 Intake Total 500 300 Output Total 4400 2250 Balance -3900 -1950 Intake: IV Intake 100 100 Zosyn 4.5 gm Injection 4. 100 100 5 gm In Sodium Chloride 0 .9 % 100 ml 100 ml @ 100 mls/hr IVPB Q8H [facility] Rx#: [id number] Intake ml 400 200 Output: Output ml 4400 2250 Reyes 4400 2250 Other: Output Urine Nonnumeric/ Comment Stool small Output stool Nonnumeric/ Comment Stool large Laboratory-Last 48 hrs: 09/21/21 04:35 09/21/21 04:35 Laboratory Results-last 24 hrs 09/20/21 06:06: Creatinine 1.11 H, Est GFR (MDRD) Af Amer 59 A, Est GFR (MDRD) Non-Af 49 A, Glucose 141 H 09/20/21 06:06: RBC 2.69 L, Hgb 8.6 L, Hct 26.2 L, MCH 32.0 H, MCHC 32.8 L, RDW 14.8 H, Plt Count 139 L, MPV 10.6 H, Neut % (Auto) 74.3 H, Absolute Neuts (auto) 5.54 H 09/20/21 06:06: PT 32.0 H 09/21/21 04:35: Creatinine 1.05 H, Est GFR (MDRD) Non-Af 52 A, Glucose 118 H 09/21/21 04:35: RBC 2.96 L, Hgb 9.3 L, Hct 28.2 L, MCH 31.4 H, RDW 14.9 H, Abs Immat Gran (man) 0.19 H, Absolute Monos (auto) 0.90 H, Immature Gran % 2.50 H 09/21/21 04:35: PT 48.1 H, INR 5.46 H* Radiology-Impressions: See radiology reports in electronic medical record. Plan/Treatment Plan: Septic shock pyelonephritis, ecoli chao, likely vasomotor (more content not included)... Normal [facility] PROGRESS NOTE [place] [id number] HEALTH INFORMATION MANAGEMENT PROGRESS NOTE : [phone] Signed Patient: IVON WISEMAN Acct:[id number] MRUN : [id number] : 1955 Sex: F Loc: ICU ADM Date: Room/Bed: 352-A DISC Date: CARDIOLOGY PROGRESS NOTE THIS DOCUMENT HAS BEEN CREATED USING VOICE RECOGNITION SOFTWARE AND MAY CONTAIN GRAMMATICAL, SYNTAX, AND TYPOGRAPHICAL ERRORS. Current Date: 09/21/21 IVON WISEMAN was admitted to MEDICAL SURGICAL service into room 352 on 09/16/21 at 16:17 for complaints of UTI. CC: F/U CHF S: Patient felt nauseous and vomited this morning. Now off oxygen. Review of Systems General: Denies: Fever Cardiovascular: Confirms: Edema. Denies: Chest Pain-Sharp, Chest Pain-Heavy, Orthopnea Cardiology Objective Findings Sepsis focused exam performed?: No General: Yes: Alert, Oriented HEENT: Yes: Atraumatic Lungs: Yes: Normal air movement Cardiovascular: Yes: Irregular rate, Normal S2, Normal S1 Abdomen: Yes: Large/Obese Extremities: Yes: Bilateral Leg Edema Skin: No: Rashes Neurological: Yes: Speech Clear Psych/Mental Status: Yes: Mental status NL Vitals and I O: 09/20/21 09/21/21 09/21/21 23:59 11:59 23:59 Intake: IV Intake 100 100 Zosyn 4.5 gm Injection 4. 100 100 5 gm In Sodium Chloride 0 .9 % 100 ml 100 ml @ 100 mls/hr IVPB Q8H [facility] Rx#: [id number] Intake ml 400 200 Output: Output ml 4400 2250 Reyes 4400 2250 Other: Output Urine Nonnumeric/ Comment Stool small Output stool Nonnumeric/ Comment Stool large VITAL SIGNS Temp Pulse Resp BP Pulse Ox FiO2 97.3 F 88 20 160/86 97 09/21/21 08:14 09/21/21 10:36 09/21/21 10:36 09/21/21 08:52 09/21/21 10:36 Radiology-Impressions: See radiology reports in electronic medical record. ASSESSMENT/PLAN Reviewed Vitals, Medications, Labs and Notes. 1) Acute on chronic diastolic CHF exac -Net negative 4L in 24hrs. Still has edema on exam. Has been weaned off oxygen. Will give one more dose of IV lasix today. 2) Afib -Permanent. Rates controlled. INR supratherapeutic. 3) Moderat AI and mild-mod MR -Anticipate this improve with diuresis. NEW ORDERS: Medications 09/21/21 12:48 Furosemide [Lasix 20 mg/2 ml Injection] 20 mg IVP ONE ONE Initial Admit Date: 09/16/21 Current Date: 09/21/21 Current Registration Status: ADM IN Electronically Generated By: XIOMARA OLMOS MD Generated Date/Time: 09/21/21 1249 Electronically Signed By: XIOMARA OLMOS MD Signed Date/Time 09/21/21 1252 Co Signed Electronically By: Co Signed Date/Time: CC: Normal [facility] Prothrombin Timeon 2 INR Coag (PPP) [Relative time] 5.46 {INR} Critically high [facility] Comment on above: Result Comment: 2.0 - 3.0 Group A 2.5 - 3.5 Group B Group A indications: Prophylaxis and treatment of venous thrombosis. Treatment of pulmonary embolism. Prevention of systemic embolism. Tissue heart valves. Acute myocardial infarction. Valvular heart disease. Atrial fibrillation. Group B indications: Mechanical prosthetic valves. . Performed By: #### P T #### [place] [id number] PT Coag (PPP) [Time] 48.1 s High 8.9-12.2 [facility] Comment on above: Result Comment: New Reference Ranges effective 2017. Performed By: #### P T #### [facility] [address] [place] [address] Basic Metabolic Panelon 2 Anion gap [Moles/Vol] 12.4 mmol/L Normal 8.0-16.0 [facility] Comment on above: Performed By: #### P T #### [facility] [address] [place] [address] Calcium [Mass/Vol] 8.5 mg/dL Normal 8.2-10.0 [facility] Comment on above: Performed By: #### P T #### [facility] [address] [place] [address] Chloride [Moles/Vol] 107 mmol/L Normal 94-110 [facility] Comment on above: Performed By: #### P T #### [facility] [address] [place] [address] CO2 [Moles/Vol] 26 mmol/L Normal 21-34 [facility] Comment on above: Performed By: #### P T #### [facility] [address] [place] [address] Creatinine [Mass/Vol] 1.11 mg/dL High 0.51-0.95 [facility] Comment on above: Performed By: #### P T #### [facility] [address] [place] [address] EGFR Other Races 49 Abnormal >60 [facility] Comment on above: Performed By: #### P T #### [facility] [address] [place] [address] GFR/1.73 sq M.predicted among blacks MDRD (S/P/Bld) [Vol rate/Area] 59 mL/min/{1.73_m2} Abnormal >60 [facility] Comment on above: Result Comment: [employer] Kidney Disease less than 60 mL/min/1.73 m2 Kidney Failure less than 15 mL/min/1.73 m2 Average estimated GFR by age: 60-69 years 85 mL/min/1.73 m2 Performed By: #### P T #### [facility] [address] [place] [address] Glucose [Mass/Vol] 141 mg/dL High 65-100 [facility] Comment on above: Performed By: #### P T #### [facility] [address] [place] [address] Potassium [Moles/Vol] 3.4 mmol/L Normal 3.3-5.1 [facility] Comment on above: Performed By: #### P T #### [facility] [address] [place] [address] Sodium [Moles/Vol] 142 mmol/L Normal 132-145 [facility] Comment on above: Performed By: #### P T #### [facility] [address] [place] [address] Urea nitrogen [Mass/Vol] 20.8 mg/dL Normal 3.2-26.9 [facility] Comment on above: Performed By: #### P T #### [facility] [address] [place] [address] Urea nitrogen/Creatinine [Mass ratio] 19 mg/mg Normal 6-20 [facility] Comment on above: Performed By: #### P T #### [facility] [address] [place] [address] CBC w/Auto Differentialon Basophils Abs. # 0.04 K/uL Normal 0.00-0.10 [facility] Comment on above: Performed By: #### C BCS #### [facility] [address] [place] [address] Basophils/100 WBC (Bld) 0.5 % Normal 0.2-1.0 [facility] Comment on above: Performed By: #### C BCS #### [facility] [address] [place] [address] Eosinophils (Bld) [#/Vol] 0.10 10*3/uL Normal 0.00-0.2 0 [facility] Comment on above: Performed By: #### C BCS #### [facility] [address] [place] [address] Eosinophils/100 WBC (Bld) 1.1 % Normal 0.9-2.9 [facility] Comment on above: Performed By: #### C BCS #### [facility] [address] [place] [address] Erythrocyte distribution width (RBC) [Ratio] 14.8 % High 11.5-14.5 [facility] Comment on above: Performed By: #### C BCS #### [facility] [address] [place] [address] Hematocrit (Bld) [Volume fraction] 26.2 % Low 33.4-46.0 [facility] Comment on above: Performed By: #### C BCS #### [facility] [address] [place] [address] Hemoglobin (Bld) [Mass/Vol] 8.6 g/dL Low 11.1-13.7 [facility] Comment on above: Performed By: #### C BCS #### [facility] [address] [place] [address] Imm Grans % 0.40 % Normal 0.00-1.00 [facility] Comment on above: Performed By: #### C BCS #### [facility] [address] [place] [address] Imm Grans Absolute # 0.03 K/uL Normal 0.00-0.10 [facility] Comment on above: Performed By: #### C BCS #### [facility] [address] [place] [address] Lymphocytes (Bld) [#/Vol] 1.30 10*3/uL Normal 1.30-2.9 0 [facility] Comment on above: Performed By: #### C BCS #### [facility] [address] [place] [address] Lymphocytes/100 WBC (Bld) 17.0 % Normal 17.0-45.5 [facility] Comment on above: Performed By: #### C BCS #### [facility] [address] [place] [address] MCH (RBC) [Entitic mass] 32.0 pg High 27.0-31.0 [facility] Comment on above: Performed By: #### C BCS #### [facility] [address] [place] [address] MCHC (RBC) [Mass/Vol] 32.8 g/dL Low 33.0-37.0 [facility] Comment on above: Performed By: #### C BCS #### [facility] [address] [place] [address] MCV (RBC) [Entitic vol] 97.4 fL Normal 81.0-99.0 [facility] Comment on above: Performed By: #### C BCS #### [facility] [place] [address] [place] [address] Monocytes (Bld) [#/Vol] 0.50 10*3/uL Normal 0.30-0.80 [facility] Comment on above: Performed By: #### C BCS #### [facility] [place] [address] [place] [address] Monocytes/100 WBC (Bld) 6.7 % Normal 5.5-11.7 [facility] Comment on above: Performed By: #### C BCS #### [facility] [place] [address] [place] [address] Neutrophils Abs. # 5.54 K/uL High 2.20-4.80 [facility] Comment on above: Performed By: #### C BCS #### [facility] [place] [address] [place] [address] Neutrophils/100 WBC (Bld) 74.3 % High 43.0-65.0 [facility] Comment on above: Performed By: #### C BCS #### [facility] [place] [address] [place] [address] Platelet mean volume (Bld) [Entitic vol] 10.6 fL High 7.4-10.4 [facility] Comment on above: Performed By: #### C BCS #### [facility] [place] [address] [place] [address] Platelets (Bld) [#/Vol] 139 10*3/uL Low 148-402 [facility] Comment on above: Performed By: #### C BCS #### [facility] [place] [address] [place] [address] RBC (Bld) [#/Vol] 2.69 10*6/uL Low 3.83-5.19 [facility] Comment on above: Performed By: #### C BCS #### [facility] [address] [place] [address] WBC (Bld) [#/Vol] 7.5 10*3/uL Normal 3.6-10.8 [facility] Comment on above: Performed By: #### C BCS #### [facility] [address] [place] [address] Magnesiumon 09-20-2021 Magnesium [Mass/Vol] 2.1 mg/dL Normal 1.3-2.3 [facility] Comment on above: Performed By: #### C OVAG #### [facility] [address] [place] [address] Monocyte %Ordered By: ADRIANE WAYNE on 09-20-2021 Monocyte % 3.6 mg/dL 2.5-4.9 [facility] PROGRESS NOTEon 09-20-2021 PROGRESS NOTE [facility] [address] [place] [address] HEALTH INFORMATION MANAGEMENT PROGRESS NOTE : [id number] Signed Patient: IVON WISEMAN Acct:[id number] MRUN : [id number] : 1955 Sex: F Loc: ICU [facility] Date: Subjective Assessment Date Of Service: 09/20/21 Events Since Admission: IVON WISEMAN was admitted to [facility] service into room 352 on 09/16/21 at 16:17 for complaints of UTI. The patient's laboratory testing and diagnostic testing has been reviewed. Subjective Note: Last night, losartan 25 mg was started for high BP. Shortness of breath slightly improved compared to yesterday. mild leg swelling. Denies chest pain, palpitations. No fevers or chills With diarrhea General: Confirms: Weakness, Fatigue. Denies: Fever, Chills, Sweats, Weight Gain, Weight Loss, Other ENT: Denies: Earache, Ear Discharge, Decreased Hearing, Tinnitus, Nose Congestion, Nose Drainage, Nasal Ulcers, Epitaxis, Sore Throat, Throat Swelling, Hoarseness, Loss Of Voice, Tongue Pain, Tongue Swelling, Lip Swelling, Dental Pain, Cervical, Other Respiratory: Confirms: Shortness of Breath, Dyspnea on Exertion. Denies: Cough, Wheezing, Sputum Production, Hemoptysis, Pleuritic Pain, Other Cardiovascular: Confirms: Short of Breath, Dyspnea on Exertion. Denies: Chest Pain-Sharp, Chest Pain-Heavy, Orthopnea, Paroxysmal Noc. Dyspnea, Edema, Palpitations, Light Headedness, Syncope, Diaphoresis, Claudication, Edema, Other Gastrointestinal: Confirms: Diarrhea. Denies: Nausea, Vomiting, Abdominal Pain, Constipation, Melena, Hematochezia, Other Genitourinary: Denies: Dysuria, Frequency, Incontinence, Hematuria, Retention, Other Musculoskeletal: Denies: Neck Pain, Shoulder Pain, Arm Pain, Back Pain, Hand Pain, Leg Pain, Foot Pain, Other Neurological: Confirms: Weakness. Denies: Numbness, Incoordination, Change in Speech, Confusion, Seizures, Other Objective Findings General: Yes: Alert, Oriented (X3), Cooperative/Pleasant, No acute distress HEENT: Yes: Atraumatic, PERRLA, Mucous membr. moist/pink, EOMI. No: Vision Impaired, Hearing Impaired Neck: Yes: Supple, +2 carotid pulse wo bruit. No: JVD, Thyromegaly Lungs: Yes: Normal air movement, Unlabored, Rales, Diminished (bilateral lung bases). No: Exibits Shortness of Mandy, Pursed Lip Breathing, Use of Accessory Muscles, Retracting Cardiovascular: Yes: Regular rate, Normal S2, Normal S1, No murmurs, Geriatric Assistant Rhythm (Sinus Rhythm). No: Gallops, Rubs, Ectopy Abdomen: Yes: Bowel Sounds X4, Soft, No Tenderness, Flatus. No: Hepatospenomegaly, Masses, Nausea/Vomiting, Emesis Present, Constipation, Diarrhea Genitourinary/Rectal: Yes: Deferred-Not Relevant Extremities: Yes: Normal pulses. No: Clubbing, Cyanosis, Edema, No tenderness/swelling, Mottling noted Skin: No: Rashes, Skin Breakdown, Significant lesions, Open Wound Present Neurological: Yes: Speech Clear, Normal tone, Sensation intact, Cognitive Ability Intact Psych/Mental Status: Yes: Mental status NL, Mood Appropriate. No: Hallucinations Vitals and I O: Vital Signs Temperature 97.3 F 09/20/21 04:00 Pulse Rate 74 09/20/21 10:40 Respiratory Rate 18 09/20/21 10:40 Blood Pressure 139/63 09/20/21 09:22 O2 Sat by Pulse Oximetry(%) 98 09/20/21 10:40 FiO2 - Manual Entry Intake Output 09/19/21 09/19/21 09/20/21 11:59 23:59 11:59 Intake Total 765 300 300 Output Total 1650 1400 700 Balance -885 -1100 -400 Weight 250 lb 4.8 oz 261 lb 8 oz Intake: IV Intake 525 100 100 Levophed 4 mg/4 ml 0 Injection 8 mg In Sodium Chloride 0.9 % 250 ml 242 ml @ 0.1 MCG/KG/MIN 20. 888 mls/hr IV CONT PRN Rx #:[id number] Sodium Chloride 0.9 % 325 1000 ml 1,000 ml @ 125 mls/hr IV .Q8H PRN Rx#: [id number] Zosyn 4.5 gm Injection 4. 200 100 100 5 gm In Sodium Chloride 0 .9 % 100 ml 100 ml @ 100 mls/hr IVPB Q8H MATT Rx#: [id number] Intake ml 240 200 200 Oral 200 Output: Output ml 1650 1400 700 Reyes 1600 1400 700 Rectal tube 50 Stool 0 Other: Output Urine Nonnumeric/ See I O Comment Output stool Nonnumeric/ Comment Stool small liquid yellow Laboratory-Last 48 hrs: 09/20/21 06:06 09/20/21 06:06 Laboratory Results-last 24 hrs 09/18/21 22:13: Hgb 9.0 L, Hct 27.6 L 09/19/21 05:52: Creatinine 1.25 H, Est GFR (MDRD) Af Amer 52 A, Est GFR (MDRD) Non-Af 43 A, Glucose 131 H, Calcium 8.0 L 09/19/21 05:52: RBC 3.10 L, Hgb 9.7 L, Hct 29.9 L, MCH 31.3 H, MCHC 32.4 L, RDW 15.1 H, Plt Count 120 L, MPV 10.8 H, Neut % (Auto) 85.0 H, Lymph % (Auto) 8.8 L, [place] % (Auto) 4.9 L, Eos % (Auto) 0.6 L, Baso % (Auto) 0.1 L, Absolute Neuts (auto) 7.69 H, Absolute Lymphs (auto) 0.80 L 09/19/21 05:52: PT 3 (more content not included)... Normal [facility] Phosphoruson 09-20-2021 Phosphate [Mass/Vol] 3.6 mg/dL Normal 2.5-4.9 [facility] Comment on above: Performed By: #### P HOS #### [address] [address] Prothrombin Timeon 2 INR Coag (PPP) [Relative time] 3.55 {INR} Normal [facility] Comment on above: Result Comment: 2.0 - 3.0 Group A 2.5 - 3.5 Group B Group A indications: Prophylaxis and treatment of venous thrombosis. Treatment of pulmonary embolism. Prevention of systemic embolism. Tissue heart valves. Acute myocardial infarction. Valvular heart disease. Atrial fibrillation. Group B indications: Mechanical prosthetic valves. . Performed By: #### P T #### [facility] [address] [place] [address] PT Coag (PPP) [Time] 32.0 s High 8.9-12.2 [facility] Comment on above: Result Comment: New Reference Ranges effective 2017. Performed By: #### P T #### [facility] [address] [place], [place] [id number] Albumin ser/plasOrdered By: ADRIANE WAYNE on 09-19-2021 Albumin [Mass/Vol] 1.9 g/dL 3.4-5.0 [facility] Basic Metabolic Panelon 08-27 Anion gap [Moles/Vol] 15.0 mmol/L Normal 8.0-16.0 [facility] Comment on above: Performed By: #### B MP #### [facility] [address] [place] [address] Calcium [Mass/Vol] 8.0 mg/dL Low 8.2-10.0 [facility] Comment on above: Performed By: #### B MP #### [facility] [address] [place] [address] Chloride [Moles/Vol] 105 mmol/L Normal 94-110 [facility] Comment on above: Performed By: #### B MP #### [facility] [address] [place] [address] CO2 [Moles/Vol] 22 mmol/L Normal 21-34 [facility] Comment on above: Performed By: #### B MP #### [facility] [address] [place] [address] Creatinine [Mass/Vol] 1.25 mg/dL High 0.51-0.95 [facility] Comment on above: Performed By: #### B MP #### [facility] [place] [address] [facility] [place] [address] EGFR Other Races 43 Abnormal >60 [facility] Comment on above: Performed By: #### B MP #### [facility] [address] [place] [address] GFR/1.73 sq M.predicted among blacks MDRD (S/P/Bld) [Vol rate/Area] 52 mL/min/{1.73_m2} Abnormal >60 [facility] Comment on above: Result Comment: [employer] Kidney Disease less than 60 mL/min/1.73 m2 Kidney Failure less than 15 mL/min/1.73 m2 Average estimated GFR by age: 60-69 years 85 mL/min/1.73 m2 Performed By: #### B MP #### [facility] [address] [place] [address] Glucose [Mass/Vol] 131 mg/dL High 65-100 [facility] Comment on above: Performed By: #### B MP #### [facility] [address] [place] [address] Potassium [Moles/Vol] 4.0 mmol/L Normal 3.3-5.1 [facility] Comment on above: Performed By: #### B MP #### [facility] [address] [place] [address] Sodium [Moles/Vol] 138 mmol/L Normal 132-145 [facility] Comment on above: Performed By: #### B MP #### [facility] [address] [place] [address] Urea nitrogen [Mass/Vol] 22.6 mg/dL Normal 3.2-26.9 [facility] Comment on above: Performed By: #### B MP #### [facility] [address] [place] [address] Urea nitrogen/Creatinine [Mass ratio] 18 mg/mg Normal 6-20 [facility] Comment on above: Performed By: #### B MP #### [facility] [address] [place] [address] Blood total protein measurem entOrdered By: ADRIANE WAYNE on 09-19-2021 Protein [Mass/Vol] 5.9 g/dL 6.1-8.2 [facility] CBC w/Auto Differentialon Basophils Abs. # 0.01 K/uL Normal 0.00-0.10 [facility] Comment on above: Performed By: #### C BCS #### [facility] [place] [address] [facility] [place] [address] Basophils/100 WBC (Bld) 0.1 % Low 0.2-1.0 [facility] Comment on above: Performed By: #### C BCS #### [facility] [address] [facility] [place] [address] Eosinophils (Bld) [#/Vol] 0.10 10*3/uL Normal 0.00-0.2 0 [facility] Comment on above: Performed By: #### C BCS #### [facility] [place] [address] [facility] [place] [address] Eosinophils/100 WBC (Bld) 0.6 % Low 0.9-2.9 [facility] Comment on above: Performed By: #### C BCS #### [facility] [address] [place] [address] Erythrocyte distribution width (RBC) [Ratio] 15.1 % High 11.5-14.5 [facility] Comment on above: Performed By: #### C BCS #### [facility] [address] [place] [address] Hematocrit (Bld) [Volume fraction] 29.9 % Low 33.4-46.0 [facility] Comment on above: Performed By: #### C BCS #### [facility] [address] [facility] [place] [address] Hemoglobin (Bld) [Mass/Vol] 9.7 g/dL Low 11.1-13.7 [facility] Comment on above: Performed By: #### C BCS #### [facility] [address] [facility] [place] [address] Imm Grans % 0.60 % Normal 0.00-1.00 [facility] Comment on above: Performed By: #### C BCS #### [facility] [address] [place] [address] Imm Grans Absolute # 0.05 K/uL Normal 0.00-0.10 [facility] Comment on above: Performed By: #### C BCS #### [facility] [address] [place] [address] Lymphocytes (Bld) [#/Vol] 0.80 10*3/uL Low 1.30-2.9 0 [facility] Comment on above: Performed By: #### C BCS #### [facility] [address] [place] [address] Lymphocytes/100 WBC (Bld) 8.8 % Low 17.0-45.5 [facility] Comment on above: Performed By: #### C BCS #### [facility] [address] [place] [address] MCH (RBC) [Entitic mass] 31.3 pg High 27.0-31.0 [facility] Comment on above: Performed By: #### C BCS #### [facility] [address] [place] [address] MCHC (RBC) [Mass/Vol] 32.4 g/dL Low 33.0-37.0 [facility] Comment on above: Performed By: #### C BCS #### [facility] [address] [place] [address] MCV (RBC) [Entitic vol] 96.5 fL Normal 81.0-99.0 [facility] Comment on above: Performed By: #### C BCS #### [facility] [place] [address] [place] [address] Monocytes (Bld) [#/Vol] 0.40 10*3/uL Normal 0.30-0.80 [facility] Comment on above: Performed By: #### C BCS #### [facility] [place] [address] [place] [address] Monocytes/100 WBC (Bld) 4.9 % Low 5.5-11.7 [facility] Comment on above: Performed By: #### C BCS #### [facility] [place] [address] [place] [address] Neutrophils Abs. # 7.69 K/uL High 2.20-4.80 [facility] Comment on above: Performed By: #### C BCS #### [facility] [place] [address] [place] [address] Neutrophils/100 WBC (Bld) 85.0 % High 43.0-65.0 [facility] Comment on above: Performed By: #### C BCS #### [facility] [place] [address] [place] [address] Platelet mean volume (Bld) [Entitic vol] 10.8 fL High 7.4-10.4 [facility] Comment on above: Performed By: #### C BCS #### [facility] [place] [address] [place] [address] Platelets (Bld) [#/Vol] 120 10*3/uL Low 148-402 [facility] Comment on above: Performed By: #### C BCS #### [facility] [place] [address] [place] [address] RBC (Bld) [#/Vol] 3.10 10*6/uL Low 3.83-5.19 [facility] Comment on above: Performed By: #### C BCS #### [facility] [address] [place] [address] WBC (Bld) [#/Vol] 9.0 10*3/uL Normal 3.6-10.8 [facility] Comment on above: Performed By: #### C BCS #### [facility] [address] [place] [address] Culture with gram stain, bod y fluidOrdered By: ADRIANE WAYNE on 09-19-2021 Albumin/Globulin [Mass ratio] 0.5 {ratio} 1.1-2.5 [facility] AST [Catalytic activity/Vol] 15 U/L 3-39 [facility] Direct bilirubinOrdered By: ADRIANE WAYNE on 09-19-2021 Bilirubin.direct [Mass/Vol] 0.19 mg/dL 0.00-0.42 [facility] Hemoglobin and Hematocriton 09-19-2021 Hematocrit (Bld) [Volume fraction] 27.6 % Low 33.4-46.0 [facility] Comment on above: Performed By: #### C OVAG #### [facility] [address] [place] [address] Hemoglobin (Bld) [Mass/Vol] 9.0 g/dL Low 11.1-13.7 [facility] Comment on above: Performed By: #### C OVAG #### [facility] [address] [place] [address] Hepatic Function Panelon Albumin [Mass/Vol] 1.9 g/dL Low 3.4-5.0 [facility] Comment on above: Performed By: #### P T #### [facility] [address] [place] [address] Albumin/Globulin [Mass ratio] 0.5 {ratio} Low 1.1-2.5 [facility] Comment on above: Performed By: #### P T #### [facility] [address] [place] [address] ALP [Catalytic activity/Vol] 120 U/L High 54-112 [facility] Comment on above: Performed By: #### P T #### [facility] [address] [place] [address] ALT [Catalytic activity/Vol] 25 U/L Normal 13-66 [facility] Comment on above: Performed By: #### P T #### [facility] [address] [place] [address] AST [Catalytic activity/Vol] 15 U/L Normal 3-39 [facility] Comment on above: Performed By: #### P T #### [facility] [address] [place] [address] Bilirubin [Mass/Vol] 0.53 mg/dL Normal 0.00-0.99 [facility] Comment on above: Performed By: #### P T #### [facility] [address] [place] [address] Bilirubin.direct [Mass/Vol] 0.19 mg/dL Normal 0.00-0.42 [facility] Comment on above: Performed By: #### P T #### [facility] [address] [place] [address] Globulin (S) [Mass/Vol] 4.0 g/dL Normal 1.5-4.5 [facility] Comment on above: Performed By: #### P T #### [facility] [address] [place] [address] Protein [Mass/Vol] 5.9 g/dL Low 6.1-8.2 [facility] Comment on above: Performed By: #### P T #### [address] [address] Laboratory - Chemistry and C hemistry - challengeOrdered By: ADRIANE WAYNE on 09-19-2021 ALP [Catalytic activity/Vol] 120 U/L 54-112 [facility] ALT [Catalytic activity/Vol] 25 U/L 13-66 [facility] Globulin (S) [Mass/Vol] 4.0 g/dL 1.5-4.5 [facility] Monocyte %Ordered By: ADRIANE WAYNE on 09-19-2021 Monocyte % 0.53 mg/dL 0.00-0.99 [facility] PROGRESS NOTEon 09-19-2021 PROGRESS NOTE [address] [address] HEALTH INFORMATION MANAGEMENT PROGRESS NOTE : [id number] Signed Patient: IVON WISEMAN Acct:[id number] MRUN : [id number] : 1955 Sex: F Loc: ICU ADM Date: Room/Bed: [facility] DISC Date: Subjective Assessment Date Of Service: 09/19/21 Events Since Admission: IVON WISEMAN was admitted to [facility] service into room 352 on 09/16/21 at 16:17 for complaints of UTI. The patient's laboratory testing and diagnostic testing has been reviewed. Subjective Note: Yesterday, Levophed has been weaned off. had soft to watery diarrhea. So far blood pressure tolerating. Metoprolol has been restarted. Heart rate improved to 80s. patient seen today. still with orthopnea. nasal cannula on. reports sob on exertion. she has generalized weakness. denies fever, chills General: Confirms: Weakness, Fatigue. Denies: Fever, Chills, Sweats, Weight Gain, Weight Loss, Other ENT: Denies: Earache, Ear Discharge, Decreased Hearing, Tinnitus, Nose Congestion, Nose Drainage, Nasal Ulcers, Epitaxis, Sore Throat, Throat Swelling, Hoarseness, Loss Of Voice, Tongue Pain, Tongue Swelling, Lip Swelling, Dental Pain, Cervical, Other Respiratory: Confirms: Shortness of Breath, Dyspnea on Exertion. Denies: Cough, Wheezing, Sputum Production, Hemoptysis, Pleuritic Pain, Other Cardiovascular: Confirms: Orthopnea, Dyspnea on Exertion. Denies: Chest Pain-Sharp, Chest Pain- Heavy, Short of Breath, Paroxysmal Noc. Dyspnea, Edema, Palpitations, Light Headedness, Syncope, Diaphoresis, Claudication, Edema, Other Gastrointestinal: Confirms: Diarrhea. Denies: Nausea, Vomiting, Abdominal Pain, Constipation, Melena, Hematochezia, Other Genitourinary: Denies: Dysuria, Frequency, Incontinence, Hematuria, Retention, Other Musculoskeletal: Denies: Neck Pain, Shoulder Pain, Arm Pain, Back Pain, Hand Pain, Leg Pain, Foot Pain, Other Neurological: Confirms: Weakness. Denies: Numbness, Incoordination, Change in Speech, Confusion, Seizures, Other Objective Findings General: Yes: Alert, Oriented (X3), Cooperative/Pleasant, No acute distress, Other (fatigued, weak appearing ) HEENT: Yes: Atraumatic, PERRLA, Mucous membr. moist/pink, EOMI Neck: Yes: Supple, +2 carotid pulse wo bruit. No: JVD, Thyromegaly Lungs: Yes: Labored, Rales (L lung base), Diminished (on the bases), Exibits Shortness of [place]. No: Pursed Lip Breathing, Use of Accessory Muscles, Retracting Cardiovascular: Yes: Regular rate (irregular rhythm), Normal S2, Normal S1, No murmurs, Geriatric Assistant Rhythm (Sinus Rhythm). No: Gallops, Rubs, Ectopy Abdomen: Yes: Bowel Sounds X4, Soft, No Tenderness, Flatus. No: Hepatospenomegaly, Masses, Nausea/Vomiting, Emesis Present, Constipation, Diarrhea Genitourinary/Rectal: Yes: Deferred-Not Relevant Extremities: Yes: Normal pulses. No: Clubbing, Cyanosis, Edema, No tenderness/swelling, Mottling noted Skin: No: Rashes, Skin Breakdown, Significant lesions, Open Wound Present Neurological: Yes: Speech Clear, Normal tone, Sensation intact, Cognitive Ability Intact Psych/Mental Status: Yes: Mental status NL, Mood Appropriate. No: Hallucinations Vitals and I O: Vital Signs Temperature 97.0 F 09/19/21 08:00 Pulse Rate 70 09/19/21 10:01 Respiratory Rate 20 09/19/21 07:30 Blood Pressure 151/62 09/19/21 10:01 O2 Sat by Pulse Oximetry(%) 98 09/19/21 10:01 FiO2 - Manual Entry Intake Output 09/18/21 09/18/21 09/19/21 11:59 23:59 11:59 Intake Total 394 450 765 Output Total 650 1225 450 Balance -256 -775 315 Weight 246 lb 12.8 oz 250 lb 4.8 oz Intake: IV Intake 294 350 525 Levophed 4 mg/4 ml 94 Injection 8 mg In Sodium Chloride 0.9 % 250 ml 242 ml @ 0.1 MCG/KG/MIN 20. 888 mls/hr IV CONT PRN Rx #:[id number] Sodium Chloride 0.9 % 325 1000 ml 1,000 ml @ 125 mls/hr IV .Q8H PRN Rx#: [id number] Vancocin 1 Gram Injection 250 1.5 gm In Sodium Chloride 0.9 % 250 ml 250 ml @ 166.667 mls/hr IVPB Q24H MATT Rx#:[id number] Zosyn 4.5 gm Injection 4. 200 100 200 5 gm In Sodium Chloride 0 .9 % 100 ml 100 ml @ 100 mls/hr IVPB Q8H MATT Rx#: [id number] Intake ml 100 100 240 Output: Output ml 650 1225 450 Reyes 650 1225 400 Rectal tube 50 Other: Output Urine Nonnumeric/ See I O Comment Output stool Nonnumeric/ Comment Stool large loose small liquid Laboratory-Last 48 hrs: 09/19/21 05:52 09/19/21 05:52 Laboratory Results-last 24 hrs 09/18/21 05:47: Creatinine 1.57 H, Est GFR (MDRD) Af Amer 40 A, Est GFR (MDRD) Non-Af 33 A, Glucose 140 H, Calcium 7.7 L 09/18/21 05:47: WBC 14.8 H, RBC 2.74 L, Hgb 8.7 L, Hct 26.7 L, MCH 31.8 H, MCHC 32.6 L, RDW 15.4 H, Neut % (Auto) 87.0 H, Lymph (more content not included)... Normal [facility] Prothrombin Timeon INR Coag (PPP) [Relative time] 3.41 {INR} Normal [facility] Comment on above: Result Comment: 2.0 - 3.0 Group A 2.5 - 3.5 Group B Group A indications: Prophylaxis and treatment of venous thrombosis. Treatment of pulmonary embolism. Prevention of systemic embolism. Tissue heart valves. Acute myocardial infarction. Valvular heart disease. Atrial fibrillation. Group B indications: Mechanical prosthetic valves. . Performed By: #### C BCS #### [facility] [address] [place] [address] PT Coag (PPP) [Time] 30.8 s High 8.9-12.2 [facility] Comment on above: Result Comment: New Reference Ranges effective 2017. Performed By: #### C BCS #### [facility] [address] [place] [address] Basic Metabolic Panelon 08-27 Anion gap [Moles/Vol] 14.5 mmol/L Normal 8.0-16.0 [facility] Comment on above: Performed By: #### C BCS #### [facility] [address] [place] [address] Calcium [Mass/Vol] 7.7 mg/dL Low 8.2-10.0 [facility] Comment on above: Performed By: #### C BCS #### [facility] [address] [place] [address] Chloride [Moles/Vol] 103 mmol/L Normal 94-110 [facility] Comment on above: Performed By: #### C BCS #### [facility] [address] [place] [address] CO2 [Moles/Vol] 22 mmol/L Normal 21-34 [facility] Comment on above: Performed By: #### C BCS #### [facility] [address] [place] [address] Creatinine [Mass/Vol] 1.57 mg/dL High 0.51-0.95 [facility] Comment on above: Performed By: #### C BCS #### [facility] [address] [place] [address] EGFR Other Races 33 Abnormal >60 [facility] Comment on above: Performed By: #### C BCS #### [facility] [address] [place] [address] GFR/1.73 sq M.predicted among blacks MDRD (S/P/Bld) [Vol rate/Area] 40 mL/min/{1.73_m2} Abnormal >60 [facility] Comment on above: Result Comment: Gr[employer] car[employer] Kidney Disease less than 60 mL/min/1.73 m2 Kidney Failure less than 15 mL/min/1.73 m2 Average estimated GFR by age: 60-69 years 85 mL/min/1.73 m2 Performed By: #### C BCS #### [facility] [address] [place] [address] Glucose [Mass/Vol] 140 mg/dL High 65-100 [facility] Comment on above: Performed By: #### C BCS #### [facility] [address] [place] [address] Potassium [Moles/Vol] 3.5 mmol/L Normal 3.3-5.1 [facility] Comment on above: Performed By: #### C BCS #### [facility] [place] [address] [facility] [place] [address] Sodium [Moles/Vol] 136 mmol/L Normal 132-145 [facility] Comment on above: Performed By: #### C BCS #### [facility] [address] [facility] [place] [address] Urea nitrogen [Mass/Vol] 22.8 mg/dL Normal 3.2-26.9 [facility] Comment on above: Performed By: #### C BCS #### [facility] [address] [facility] [place] [address] Urea nitrogen/Creatinine [Mass ratio] 15 mg/mg Normal 6-20 [facility] Comment on above: Performed By: #### C BCS #### [facility] [address] [facility] [place] [address] CBC w/Auto Differentialon Basophils Abs. # 0.00 K/uL Normal 0.00-0.10 [facility] Comment on above: Performed By: #### P T #### [facility] [address] [place] [address] Basophils/100 WBC (Bld) 0.0 % Low 0.2-1.0 [facility] Comment on above: Performed By: #### P T #### [facility] [address] [facility] [place] [address] Eosinophils (Bld) [#/Vol] 0.00 10*3/uL Normal 0.00-0.2 0 [facility] Comment on above: Performed By: #### P T #### [facility] [address] [facility] [place] [address] Eosinophils/100 WBC (Bld) 0.0 % Low 0.9-2.9 [facility] Comment on above: Performed By: #### P T #### [facility] [address] [place] [address] Erythrocyte distribution width (RBC) [Ratio] 15.4 % High 11.5-14.5 [facility] Comment on above: Performed By: #### P T #### [facility] [address] [place] [address] Hematocrit (Bld) [Volume fraction] 26.7 % Low 33.4-46.0 [facility] Comment on above: Performed By: #### P T #### [id number] [place] [address] Hemoglobin (Bld) [Mass/Vol] 8.7 g/dL Low 11.1-13.7 [facility] Comment on above: Performed By: #### P T #### [facility] [address] [place] [address] Imm Grans % 0.00 % Normal 0.00-1.00 [facility] Comment on above: Performed By: #### P T #### [address] [place] [address] Imm Grans Absolute # 0.00 K/uL Normal 0.00-0.10 [facility] Comment on above: Performed By: #### P T #### [facility] [address] [place] [address] Lymphocytes (Bld) [#/Vol] 1.50 10*3/uL Normal 1.30-2.9 0 [facility] Comment on above: Performed By: #### P T #### [id number] [place] [id number] Lymphocytes/100 WBC (Bld) 10.0 % Low 17.0-45.5 [facility] Comment on above: Performed By: #### P T #### [facility] [address] [place] [address] MCH (RBC) [Entitic mass] 31.8 pg High 27.0-31.0 [facility] Comment on above: Performed By: #### P T #### [facility] [address] [place] [address] MCHC (RBC) [Mass/Vol] 32.6 g/dL Low 33.0-37.0 [facility] Comment on above: Performed By: #### P T #### [facility] [address] [place] [address] MCV (RBC) [Entitic vol] 97.4 fL Normal 81.0-99.0 [facility] Comment on above: Performed By: #### P T #### [facility] [address] [place] [address] Monocytes (Bld) [#/Vol] 0.40 10*3/uL Normal 0.30-0.80 [facility] Comment on above: Performed By: #### P T #### [facility] [address] [place] [address] Monocytes/100 WBC (Bld) 3.0 % Low 5.5-11.7 [facility] Comment on above: Performed By: #### P T #### [facility] [address] [place] [address] Neutrophils Abs. # 12.88 K/uL High 2.20-4.80 [facility] Comment on above: Performed By: #### P T #### [address] [place] [address] Neutrophils/100 WBC (Bld) 87.0 % High 43.0-65.0 [facility] Comment on above: Performed By: #### P T #### [facility] [address] [place] [address] Platelet mean volume (Bld) [Entitic vol] 10.1 fL Normal 7.4-10.4 [facility] Comment on above: Performed By: #### P T #### [facility] [address] [place] [address] Platelets (Bld) [#/Vol] 148 10*3/uL Normal 148-402 [facility] Comment on above: Performed By: #### P T #### [facility] [address] [place] [address] RBC (Bld) [#/Vol] 2.74 10*6/uL Low 3.83-5.19 [facility] Comment on above: Performed By: #### P T #### [facility] [address] [place] [address] WBC (Bld) [#/Vol] 14.8 10*3/uL High 3.6-10.8 [facility] Comment on above: Performed By: #### P T #### [facility] [address] [place] [address] CHEST APon 09-18-2021 CHEST AP EXAMINATION: ONE XRAY VIEW OF THE CHEST 09/18/2021 5:36 am COMPARISON: 09/17/2021 HISTORY: ORDERING SYSTEM PROVIDED HISTORY: wheezy FINDINGS: Portable chest reveals PICC line catheter identified on the right tip in the SVC. Lung volumes are low. There is no new focal parenchymal opacification present. Atelectatic changes in the right lung base. Bony structures are unremarkable. IMPRESSION: Stable chest with no new focal parenchymal opacification present. Minimal increased markings stable at the right lung base. PICC line catheter unchanged in satisfactory position. Normal [facility] Culture with gram stain, bod y fluidOrdered By: ADRIANE WAYNE on 09-18-2021 Culture with gram stain, body fluid Appear normal [facility] Differential Manualon 2021 Anisocytosis FOREIGN TRADE TEACHER Normal [facility] Comment on above: Performed By: #### P T #### [facility] [place] [address] [place] [address] Basophilic Stippling FOREIGN TRADE TEACHER Normal [facility] Comment on above: Performed By: #### P T #### [facility] [place] [address] [place] [address] Basophils 0 % Normal 0-1 [facility] Comment on above: Performed By: #### P T #### [facility] [address] [place] [address] Blast. FOREIGN TRADE TEACHER Normal 0-0 [facility] Comment on above: Performed By: #### P T #### [facility] [place] [address] [place] [address] Roxana Cell FOREIGN TRADE TEACHER Normal [facility] Comment on above: Performed By: #### P T #### [facility] [address] [place] [address] Bruin Rings FOREIGN TRADE TEACHER Normal [facility] Comment on above: Performed By: #### P T #### [facility] [place] [address] [place] [address] Crenated Cells FOREIGN TRADE TEACHER Normal [facility] Comment on above: Performed By: #### P T #### [facility] [address] [facility] [place] [address] Dohle Bodies FOREIGN TRADE TEACHER Normal [facility] Comment on above: Performed By: #### P T #### [facility] [place] [address] [place] [address] Eosinophils 0 % Low 1-3 [facility] Comment on above: Performed By: #### P T #### [facility] [place] [address] [place] [address] Fragmented Cells FOREIGN TRADE TEACHER Normal [facility] Comment on above: Performed By: #### P T #### [facility] [place] [address] [place] [address] Morgan Bodies FOREIGN TRADE TEACHER [facility] Comment on above: Performed By: #### P T #### [facility] [place] [address] [place] [address] Simpson-[place] Bodies FOREIGN TRADE TEACHER [facility] Comment on above: Performed By: #### P T #### [facility] [place] [address] [place] [address] Hyperchromia FOREIGN TRADE TEACHER Normal [facility] Comment on above: Performed By: #### P T #### [facility] [place] [address] [place] [address] Hypochromia FOREIGN TRADE TEACHER Normal [facility] Comment on above: Performed By: #### P T #### [facility] [place] [address] [place] [address] Immature Cells FOREIGN TRADE TEACHER [facility] Comment on above: Performed By: #### P T #### [facility] [place] [address] [place] [address] Lymphocytes 10 % Low 17-46 [facility] Comment on above: Performed By: #### P T #### [facility] [place] [address] [place] [address] Lymphocytes Atypical FOREIGN TRADE TEACHER Normal [facility] Comment on above: Performed By: #### P T #### [facility] [place] [address] [place] [address] Lymphocytes Reactive FOREIGN TRADE TEACHER Normal [facility] Comment on above: Performed By: #### P T #### [facility] [place] [address] [place] [address] Macrocytosis FOREIGN TRADE TEACHER Normal [facility] Comment on above: Performed By: #### P T #### [facility] [place] [address] [place] [address] Metamyelocytes FOREIGN TRADE TEACHER Normal 0-0 [facility] Comment on above: Performed By: #### P T #### [facility] [place] [address] [place] [address] Microcytic FOREIGN TRADE TEACHER Normal [facility] Comment on above: Performed By: #### P T #### [facility] [place] [address] [place] [address] Monoblasts FOREIGN TRADE TEACHER Normal [facility] Comment on above: Performed By: #### P T #### [facility] [place] [address] [place] [address] Monocytes 3 % Low 6-12 [facility] Comment on above: Performed By: #### P T #### [facility] [place] [address] [place] [address] Myeloblasts FOREIGN TRADE TEACHER Normal [facility] Comment on above: Performed By: #### P T #### [facility] [place] [address] [place] [address] Myelocytes FOREIGN TRADE TEACHER Normal 0-0 [facility] Comment on above: Performed By: #### P T #### [facility] [place] [address] [facility] [address] Neutrophils 87 % High 43-65 [facility] Comment on above: Performed By: #### P T #### [facility] [place] [address] [place] [address] Nucleated RBC FOREIGN TRADE TEACHER Normal 0-0 [facility] Comment on above: Performed By: #### P T #### [facility] [place] [address] [facility] [place] [address] Ovalocytes FOREIGN TRADE TEACHER Normal [facility] Comment on above: Performed By: #### P T #### [facility] [place] [address] [facility] [place] [address] Platelet Slide Review APPEAR NORMAL Normal [facility] Comment on above: Performed By: #### P T #### [facility] [place] [address] [facility] [place] [address] Poikilocytosis FOREIGN TRADE TEACHER Normal [facility] Comment on above: Performed By: #### P T #### [facility] [place] [address] [facility] [place] [address] Polychromasia FOREIGN TRADE TEACHER Normal [facility] Comment on above: Performed By: #### P T #### [facility] [place] [address] [facility] [place] [address] Promyelocyte FOREIGN TRADE TEACHER Normal 0-0 [facility] Comment on above: Performed By: #### P T #### [facility] [place] [address] [facility] [place] [address] Schistocytes FOREIGN TRADE TEACHER Normal [facility] Comment on above: Performed By: #### P T #### [facility] [place] [address] [facility] [place] [address] Sickle Cells FOREIGN TRADE TEACHER Normal [facility] Comment on above: Performed By: #### P T #### [facility] [place] [address] [place] [address] Smudge Cells FOREIGN TRADE TEACHER Normal [facility] Comment on above: Performed By: #### P T #### [facility] [place] [address] [place] [address] Spherocytes FOREIGN TRADE TEACHER Normal [facility] Comment on above: Performed By: #### P T #### [facility] [place] [address] [place] [address] Target Cells FOREIGN TRADE TEACHER Normal [facility] Comment on above: Performed By: #### P T #### [facility] [place] [address] [place] [address] Tear Drop Cells FOREIGN TRADE TEACHER [facility] Comment on above: Performed By: #### P T #### [facility] [place] [address] [place] [address] Toxic Granulation FOREIGN TRADE TEACHER Normal [facility] Comment on above: Performed By: #### P T #### [facility] [place] [address] [place] [address] KSCULon 09-18-2021 KSCUL Patient: JULIO C WISEMAN [id number] Location: [facility] Aount: [id number] : 1955 Age: 65 Sex F Lab NumbEr [id number] Requested by: ADRIANE WAYNE Admitdate: 09/16/21 Source: STOOL Collected: 09/18/21 15:37 Site: Received : 09/18/21 15:37 OE C O M M E N T S LAB.PORT; Does the Patient have a central line to draw blood from?; N; [email or web address]; Huy Site; stool Culture, Stool FINAL 09/21/21 06:41 09/20/21 RESULT COMMENT Stool culture negative for Campylobacter, E. coli 0157, Salmonella, Shigella, Vibrio, and Yersinia. Normal [facility] Comment on above: Performed By: #### C BCS #### [facility] [address] [place], [place] [id number] Laboratory - Chemistry and C hemistry - challengeOrdered By: ADRIANE WAYNE on 09-18-2021 Natriuretic peptide B (Bld) [Mass/Vol] 7912 pg/mL 0-125 [facility] Comment on above: NOTE-Dietary supplem ents containing high biotin levels may cause significant interference with affected lab tests, including cardiovascular diagnostic tests and hormone tests that use biotin technology. Incorrect test results may be generated if there is biotin in the patients specimen. NT Pro-BNPon 09-18-2021 Natriuretic peptide B (Bld) [Mass/Vol] 7912 pg/mL High 0-125 [facility] Comment on above: Result Comment: NOTE -Dietary supplements containing high biotin levels may cause significant interference with affected lab tests, including cardiovascular diagnostic tests and hormone tests that use biotin technology. Incorrect test results may be generated if there is biotin in the patients specimen. Performed By: #### C BCS #### [address] [id number] PROGRESS NOTEon 09-18-2021 PROGRESS NOTE [address] [address] HEALTH INFORMATION MANAGEMENT PROGRESS NOTE : [phone] Signed Patient: IVON WISEMAN Acct:[id number] MRUN : [id number] : 1955 Sex: F Loc: ICU ADM Date: Room/Bed: 352-A DISC Date: Subjective Assessment Date Of Service: 09/18/21 Events Since Admission: IVON WISEMAN was admitted to [facility] service into room 352 on 09/16/21 at 16:17 for complaints of UTI. The patient's laboratory testing and diagnostic testing has been reviewed. Subjective Note: last night, patient was noted to be more wheezy, sob when laying flight she was started on steroids, inhalers, breahting tx, fluids dc'd patietn seen today, reports fatigue denies any chest pain, palpitations r sided back pain improve still with orthopnea, wheezing complains of nausea, diarrhea soft to watery General: Confirms: Fatigue. Denies: Fever, Chills, Sweats, Weakness, Weight Gain, Weight Loss, Other ENT: Denies: Earache, Ear Discharge, Decreased Hearing, Tinnitus, Nose Congestion, Nose Drainage, Nasal Ulcers, Epitaxis, Sore Throat, Throat Swelling, Hoarseness, Loss Of Voice, Tongue Pain, Tongue Swelling, Lip Swelling, Dental Pain, Cervical, Other Respiratory: Confirms: Shortness of Breath, Wheezing, Dyspnea on Exertion. Denies: Cough, Sputum Production, Hemoptysis, Pleuritic Pain, Other Cardiovascular: Confirms: Orthopnea, Short of Breath, Dyspnea on Exertion. Denies: Chest Pain- Sharp, Chest Pain-Heavy, Paroxysmal Noc. Dyspnea, Edema, Palpitations, Light Headedness, Syncope, Diaphoresis, Claudication, Edema, Other Gastrointestinal: Confirms: Nausea, Diarrhea. Denies: Vomiting, Abdominal Pain, Constipation, Me chana, Hematochezia, Other Genitourinary: Denies: Dysuria, Frequency, Incontinence, Hematuria, Retention, Other Musculoskeletal: Denies: Neck Pain, Shoulder Pain, Arm Pain, Back Pain, Hand Pain, Leg Pain, Foot Pain, Other Neurological: Confirms: Weakness. Denies: Numbness, Incoordination, Change in Speech, Confusion, Seizures, Other Objective Findings General: Yes: Alert, Oriented (X3), Cooperative/Pleasant, No acute distress, Other (fatigued appearing) HEENT: Yes: Atraumatic, PERRLA, Mucous membr. moist/pink, EOMI. No: Vision Impaired, Hearing Impaired Neck: Yes: Supple, +2 carotid pulse wo bruit. No: JVD, Thyromegaly Lungs: Yes: Labored, Wheezing (occasional), Diminished (on the bases), Use of Accessory Muscles. No: Exibits Shortness of [place], Pursed Lip Breathing, Retracting Cardiovascular: Yes: Regular rate, Normal S2, Normal S1, No murmurs, Geriatric Assistant Rhythm (Sinus Rhythm). No: Gallops, Rubs, Ectopy Abdomen: Yes: Bowel Sounds X4, Soft, Large/Obese, No Tenderness, Flatus. No: Hepatospenomegaly, Masses, Nausea/Vomiting, Emesis Present, Constipation, Diarrhea Genitourinary/Rectal: Yes: Deferred-Not Relevant Extremities: Yes: Normal pulses. No: Clubbing, Cyanosis, Edema, No tenderness/swelling, Mottling noted Skin: No: Rashes, Skin Breakdown, Significant lesions, Open Wound Present Neurological: Yes: Speech Clear, Normal tone, Sensation intact, Cognitive Ability Intact Psych/Mental Status: Yes: Mental status NL, Mood Appropriate. No: Hallucinations Vitals and I O: Vital Signs Temperature 97.2 F 09/18/21 08:00 Pulse Rate 91 09/18/21 08:30 Respiratory Rate 24 H 09/18/21 08:00 Blood Pressure 123/62 09/18/21 11:00 O2 Sat by Pulse Oximetry(%) 100 09/18/21 08:30 FiO2 - Manual Entry Intake Output 09/17/21 09/18/21 09/18/21 23:59 11:59 23:59 Intake Total 2829 294 Output Total 750 650 Balance 2079 -356 Weight 246 lb 12.8 oz Intake: IV Intake 2349 194 Levophed 4 mg/4 ml 324 94 Injection 8 mg In Sodium Chloride 0.9 % 250 ml 242 ml @ 0.1 MCG/KG/MIN 20. 888 mls/hr IV CONT PRN Rx #:[id number] Sodium Chloride 0.9 % 1675 1000 ml 1,000 ml @ 125 mls/hr IV .Q8H PRN Rx#: [id number] Sodium Chloride 0.9 % 0 1000 ml 1,000 ml @ 80 mls /hr IV .[id number] PRN Rx#: [id number] Vancocin 1 Gram Injection 250 1.5 gm In Sodium Chloride 0.9 % 250 ml 250 ml @ 166.667 mls/hr IVPB Q24H MATT Rx#:[id number] Zosyn 4.5 gm Injection 4. 100 100 5 gm In Sodium Chloride 0 .9 % 100 ml 100 ml @ 100 mls/hr IVPB Q8H MATT Rx#: [id number] Intake ml 480 100 Output: Output ml 750 650 Reyes 750 650 Laboratory-Last 48 hrs: 09/18/21 05:47 09/18/21 05:47 Laboratory Results-last 24 hrs 09/17/21 04:41: Creatinine 2.06 H, Est GFR (MDRD) Af Amer 29 A, Est GFR (MDRD) Non-Af 24 A, Glucose 187 H, Phosphorus 1.0 L, Magnesium 2.6 H 09/17/21 04:41: WBC 11.1 H, RBC 3.48 L, Hgb 10.9 L, MCH 31.3 H, MCHC 32.2 L, RDW 15.0 H, Neut % (Auto) 87.7 H, Lymph % (Auto) 5.3 L, [place] % (Auto) 5.4 L (more content not included)... Normal [facility] Prothrombin Timeon INR Coag (PPP) [Relative time] 2.59 {INR} Normal [facility] Comment on above: Result Comment: 2.0 - 3.0 Group A 2.5 - 3.5 Group B Group A indications: Prophylaxis and treatment of venous thrombosis. Treatment of pulmonary embolism. Prevention of systemic embolism. Tissue heart valves. Acute myocardial infarction. Valvular heart disease. Atrial fibrillation. Group B indications: Mechanical prosthetic valves. . Performed By: #### C BCS #### [facility] [address] PT Coag (PPP) [Time] 23.8 s High 8.9-12.2 [facility] Comment on above: Result Comment: New Reference Ranges effective 2017. Performed By: #### C BCS #### [facility] [address] [place] [address] [place]'s test before arterial blood gasOrdered By: ADRIANE WAYNE on 09-17-2021 Arterial patency Wrist artery --pre arterial puncture See comment [facility] Comment on above: Positive Arterial blood carboxyhemogl obin measurementOrdered By: ADRIANE WAYNE on 09-17-2021 Carboxyhemoglobin (BldA) [Mass fraction] 0.1 % 0.0-3.09 [facility] Arterial blood deoxyhemoglob in/total hemoglobinOrdered By: ADRIANE WAYNE on 09-17-2021 Deoxyhemoglobin (BldA) [Mass fraction] 27.9 % 0.0-5.09 [facility] Arterial blood fractional ox yhemoglobinOrdered By: ADRIANE WAYNE on 09-17-2021 Oxyhemoglobin (BldA) [Mass fraction] 71.7 % 92.9-100.9 [facility] Arterial blood methemoglobin /total hemoglobinOrdered By: ADRIANE WAYNE on 09-17-2021 Methemoglobin (BldA) [Mass fraction] 0.3 % 0.0-1.59 [facility] Arterial blood standard bica rbonate measurementOrdered By: ADRIANE WAYNE on 09-17-2021 HCO3 standard (BldA) [Moles/Vol] 20.8 mmol/L 21.9-26.9 [facility] Base excess Calc (BldA) [Mol es/Vol]Ordered By: ADRIANE WAYNE on 09-17-2021 Base excess Calc (Bld) [Moles/Vol] -5.1000 mmol/L -2.1-2.29 [facility] Basic Metabolic Panelon 08-27 Anion gap [Moles/Vol] 14.4 mmol/L Normal 8.0-16.0 [facility] Comment on above: Performed By: #### C OVAG #### [address] [address] Calcium [Mass/Vol] 8.6 mg/dL Normal 8.2-10.0 [facility] Comment on above: Performed By: #### C OVAG #### [address] [place] [address] Chloride [Moles/Vol] 104 mmol/L Normal 94-110 [facility] Comment on above: Performed By: #### C OVAG #### [facility] [address] [place] [address] CO2 [Moles/Vol] 24 mmol/L Normal 21-34 [facility] Comment on above: Performed By: #### C OVAG #### [facility] [address] [place] [address] Creatinine [Mass/Vol] 2.06 mg/dL High 0.51-0.95 [facility] Comment on above: Performed By: #### C OVAG #### [facility] [address] [place] [address] EGFR Other Races 24 Abnormal >60 [facility] Comment on above: Performed By: #### C OVAG #### [facility] [address] [place] [address] GFR/1.73 sq M.predicted among blacks MDRD (S/P/Bld) [Vol rate/Area] 29 mL/min/{1.73_m2} Abnormal >60 [facility] Comment on above: Result Comment: [employer] Kidney Disease less than 60 mL/min/1.73 m2 Kidney Failure less than 15 mL/min/1.73 m2 Average estimated GFR by age: 60-69 years 85 mL/min/1.73 m2 Performed By: #### C OVAG #### [facility] [address] [place] [address] Glucose [Mass/Vol] 187 mg/dL High 65-100 [facility] Comment on above: Performed By: #### C OVAG #### [facility] [address] [place] [address] Potassium [Moles/Vol] 3.4 mmol/L Normal 3.3-5.1 [facility] Comment on above: Performed By: #### C OVAG #### [facility] [address] [place] [address] Sodium [Moles/Vol] 139 mmol/L Normal 132-145 [facility] Comment on above: Performed By: #### C OVAG #### [facility] [address] [place] [address] Urea nitrogen [Mass/Vol] 24.8 mg/dL Normal 3.2-26.9 [facility] Comment on above: Performed By: #### C OVAG #### [facility] [address] [place] [address] Urea nitrogen/Creatinine [Mass ratio] 12 mg/mg Normal 6-20 [facility] Comment on above: Performed By: #### C OVAG #### [facility] [address] [place] [address] CBC w/Auto Differentialon Basophils Abs. # 0.01 K/uL Normal 0.00-0.10 [facility] Comment on above: Performed By: #### C OVAG #### [facility] [address] [place] [address] Basophils/100 WBC (Bld) 0.1 % Low 0.2-1.0 [facility] Comment on above: Performed By: #### C OVAG #### [facility] [address] [place] [address] Eosinophils (Bld) [#/Vol] 0.00 10*3/uL Normal 0.00-0.2 0 [facility] Comment on above: Performed By: #### C OVAG #### [facility] [address] [place] [address] Eosinophils/100 WBC (Bld) 0.0 % Low 0.9-2.9 [facility] Comment on above: Performed By: #### C OVAG #### [facility] [address] [place] [address] Erythrocyte distribution width (RBC) [Ratio] 15.0 % High 11.5-14.5 [facility] Comment on above: Performed By: #### C OVAG #### [facility] [address] [place] [address] Hematocrit (Bld) [Volume fraction] 33.9 % Normal 33.4-46.0 [facility] Comment on above: Performed By: #### C OVAG #### [facility] [address] [place] [address] Hemoglobin (Bld) [Mass/Vol] 10.9 g/dL Low 11.1-13.7 [facility] Comment on above: Performed By: #### C OVAG #### [facility] [address] [place] [address] Imm Grans % 1.50 % High 0.00-1.00 [facility] Comment on above: Performed By: #### C OVAG #### [facility] [address] [place] [address] Imm Grans Absolute # 0.17 K/uL High 0.00-0.10 [facility] Comment on above: Performed By: #### C OVAG #### [facility] [address] [place] [address] Lymphocytes (Bld) [#/Vol] 0.60 10*3/uL Low 1.30-2.9 0 [facility] Comment on above: Performed By: #### C OVAG #### [facility] [place] [address] [place] [address] Lymphocytes/100 WBC (Bld) 5.3 % Low 17.0-45.5 [facility] Comment on above: Performed By: #### C OVAG #### [facility] [address] [place] [address] MCH (RBC) [Entitic mass] 31.3 pg High 27.0-31.0 [facility] Comment on above: Performed By: #### C OVAG #### [facility] [address] [place] [address] MCHC (RBC) [Mass/Vol] 32.2 g/dL Low 33.0-37.0 [facility] Comment on above: Performed By: #### C OVAG #### [facility] [address] [place] [address] MCV (RBC) [Entitic vol] 97.4 fL Normal 81.0-99.0 [facility] Comment on above: Performed By: #### C OVAG #### [facility] [address] [place] [address] Monocytes (Bld) [#/Vol] 0.60 10*3/uL Normal 0.30-0.80 [facility] Comment on above: Performed By: #### C OVAG #### [facility] [address] [place] [address] Monocytes/100 WBC (Bld) 5.4 % Low 5.5-11.7 [facility] Comment on above: Performed By: #### C OVAG #### [facility] [address] [place] [address] Neutrophils Abs. # 9.69 K/uL High 2.20-4.80 [facility] Comment on above: Performed By: #### C OVAG #### [facility] [address] [place] [address] Neutrophils/100 WBC (Bld) 87.7 % High 43.0-65.0 [facility] Comment on above: Performed By: #### C OVAG #### [facility] [address] [place] [address] Platelet mean volume (Bld) [Entitic vol] 9.9 fL Normal 7.4-10.4 [facility] Comment on above: Performed By: #### C OVAG #### [facility] [address] [place] [address] Platelets (Bld) [#/Vol] 175 10*3/uL Normal 148-402 [facility] Comment on above: Performed By: #### C OVAG #### [facility] [address] [place] [address] RBC (Bld) [#/Vol] 3.48 10*6/uL Low 3.83-5.19 [facility] Comment on above: Performed By: #### C OVAG #### [facility] [address] [place] [address] WBC (Bld) [#/Vol] 11.1 10*3/uL High 3.6-10.8 [facility] Comment on above: Performed By: #### C OVAG #### [facility] [address] [place] [address] CHEST APon 09-17-2021 CHEST AP EXAMINATION: ONE XRAY VIEW OF THE CHEST 09/17/2021 8:04 am COMPARISON: 09/16/2021 HISTORY: ORDERING SYSTEM PROVIDED HISTORY: PICC line placement FINDINGS: There is a mildly diminished inspiratory effort. Heart is upper limits of normal in size. No alveolar consolidation is detected. There is no evidence of pneumothorax. There is a left-sided PICC line catheter with its tip in the upper right atrium in good position. Osseous structures are stable. IMPRESSION: Left PICC line catheter tip is in the upper right atrium just inferior to the cavoatrial junction in good position. Normal [facility] CO2 (BldA) [Partial pressure ]Ordered By: ADRIANE WAYNE on 09-17-2021 CO2 (Bld) [Partial pressure] 42.0 mm[Hg] 34.9-45.9 [facility] Hemoglobin (BldA) [Mass/Vol] Ordered By: ADRIANE WAYNE on 09-17-2021 Hemoglobin (Bld) [Mass/Vol] 10.3 g/dL 11.1-17.3 [facility] Hepatic Function Panelon Albumin [Mass/Vol] 2.4 g/dL Low 3.4-5.0 [facility] Comment on above: Performed By: #### C OVAG #### [facility] [address] [place], [place] [id number] Albumin/Globulin [Mass ratio] 0.6 {ratio} Low 1.1-2.5 [facility] Comment on above: Performed By: #### C OVAG #### [facility] [address] [place], [place] [id number] ALP [Catalytic activity/Vol] 125 U/L High 54-112 [facility] Comment on above: Performed By: #### C OVAG #### [facility] [address] [place] [address] ALT [Catalytic activity/Vol] 37 U/L Normal 13-66 [facility] Comment on above: Performed By: #### C OVAG #### [facility] [address] [place], [place] [id number] AST [Catalytic activity/Vol] 32 U/L Normal 3-39 [facility] Comment on above: Performed By: #### C OVAG #### [facility] [address] [place] [address] Bilirubin [Mass/Vol] 1.81 mg/dL High 0.00-0.99 [facility] Comment on above: Performed By: #### C OVAG #### [facility] [address] [place] [address] Bilirubin.direct [Mass/Vol] 1.12 mg/dL High 0.00-0.42 [facility] Comment on above: Performed By: #### C OVAG #### [facility] [address] [place] [address] Globulin (S) [Mass/Vol] 3.8 g/dL Normal 1.5-4.5 [facility] Comment on above: Performed By: #### C OVAG #### [facility] [address] [place] [address] Protein [Mass/Vol] 6.2 g/dL Normal 6.1-8.2 [facility] Comment on above: Performed By: #### C OVAG #### [facility] [address] [place] [address] Magnesiumon 09-17-2021 Magnesium [Mass/Vol] 2.6 mg/dL High 1.3-2.3 [facility] Comment on above: Performed By: #### M G #### [facility] [address] [place] [address] No Panel InformationOrdered By: ADRIANE WAYNE on 09-17-2021 Blood Gas Comments See comment [facility] Comment on above: Ran as arterial but suspect venous gas. Critical values verified times two. Reported to RN.Verified by RB. Blood Gas Sample Site L radial [facility] Blood Gas Ventilator Setting [facility] FiO2 28 % 21-100 [facility] Oxygen (BldA) [Partial press ure]Ordered By: ADRIANE WAYNE on 09-17-2021 Oxygen (Bld) [Partial pressure] 40.4 mm[Hg] 79.9-99.9 [facility] PROGRESS NOTEon 09-17-2021 PROGRESS NOTE [place] [id number] [place] [address] HEALTH INFORMATION MANAGEMENT PROGRESS NOTE : [phone] Signed with Addenda Patient: IVON WISEMAN Acct:[id number] MRUN : [id number] : 1955 Sex: F Loc: ICU ADM Date: Room/Bed: [facility] DISC Date: ADDENDUM---- ------ CCT 35min Addendum: Signed Date/Time: 09/17/21 1754 Co-Signed: Co-signed Date/Time Subjective Assessment Date Of Service: 09/17/21 Events Since Admission: IVON WISEMAN was admitted to [facility] service into room 352 on 09/16/21 at 16:17 for complaints of UTI. The patient's laboratory testing and diagnostic testing has been reviewed. Subjective Note: Overnight, despite being on ceftriaxone, patient was still spiking fevers up to 103 Antibiotics were broadened to Vanco and Zosyn She had A. fib RVR. 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 Attempted to give fluid bolus however this did not improve She also received digoxin once, dosing was used with caution given CHAO Patient was transferred to the ICU, Levophed was started, additional fluid bolus given Patient seen, fatigued appearing. Diaphoretic, clammy extremities Reports right-sided back pain. No midline pain No leg swelling No cough or rash General: Confirms: Weakness, Fatigue. Denies: Fever, Chills, Sweats, Weight Gain, Weight Loss, Other ENT: Denies: Earache, Ear Discharge, Decreased Hearing, Tinnitus, Nose Congestion, Nose Drainage, Nasal Ulcers, Epitaxis, Sore Throat, Throat Swelling, Hoarseness, Loss Of Voice, Tongue Pain, Tongue Swelling, Lip Swelling, Dental Pain, Cervical, Other Respiratory: Denies: Cough, Shortness of Breath, Wheezing, Sputum Production, Hemoptysis, Dyspnea on Exertion, Pleuritic Pain, Other Cardiovascular: Denies: Chest Pain-Sharp, Chest Pain-Heavy, Orthopnea, Short of Breath, Dyspnea on Exertion, Paroxysmal Noc. Dyspnea, Edema, Palpitations, Light Headedness, Syncope, Diaphoresis, Claudication, Edema, Other Gastrointestinal: Denies: Nausea, Vomiting, Abdominal Pain, Diarrhea, Constipation, Melena, Hematochezia, Other Genitourinary: Denies: Dysuria, Frequency, Incontinence, Hematuria, Retention, Other Musculoskeletal: Denies: Neck Pain, Shoulder Pain, Arm Pain, Back Pain, Hand Pain, Leg Pain, Foot Pain, Other Neurological: Confirms: Weakness. Denies: Numbness, Incoordination, Change in Speech, Confusion, Seizures, Other Objective Findings General: Yes: Alert, Oriented, Cooperative/Pleasant, Mild distress, Other (Weak appearing) HEENT: Yes: Atraumatic, PERRLA, Mucous membr. moist/pink, EOMI. No: Vision Impaired, Hearing Impaired Neck: Yes: Supple. No: JVD Lungs: Yes: Clear to auscultation, Normal air movement, Unlabored. No: Exibits Shortness of [place], Pursed Lip Breathing, Use of Accessory Muscles, Retracting Cardiovascular: Yes: Regular rate, Normal S2, Normal S1, No murmurs, Geriatric Assistant Rhythm (Sinus Rhythm). No: Gallops, Rubs, Ectopy Abdomen: Yes: Bowel Sounds X4, Soft, Large/Obese, No Tenderness, Flatus. No: Hepatospenomegaly, Masses, Nausea/Vomiting, Emesis Present, Constipation, Diarrhea Genitourinary/Rectal: Yes: Deferred-Not Relevant Extremities: Yes: Normal pulses, Other (No midline tenderness. No CVA tenderness today). No: Clubbing, Cyanosis, Edema, No tenderness/swelling, Mottling noted Skin: No: Rashes, Skin Breakdown, Significant lesions, Open Wound Present Neurological: Yes: Speech Clear, Normal tone, Sensation intact, Cognitive Ability Intact Psych/Mental Status: Yes: Mental status NL, Mood Appropriate. No: Hallucinations Vitals and I O: Vital Signs Temperature 97.3 F 09/17/21 16:34 Pulse Rate 74 09/17/21 17:00 Respiratory Rate 26 H 09/17/21 11:30 Blood Pressure 107/64 09/17/21 17:00 O2 Sat by Pulse Oximetry(%) 99 09/17/21 17:00 FiO2 - Manual Entry Intake Output 09/16/21 09/17/21 09/17/21 23:59 11:59 23:59 Intake Total 1098 3811 1712 Output Total 250 Balance 1098 3561 1712 Weight 245 lb 9.6 oz Intake: IV Intake 1098 3811 1472 Lactated Ringers 1000 ml 1000 1,000 ml @ Wide Open IV . Q0M STA Rx#:[id number] Levophed 4 mg/4 ml 230 222 Injection 8 mg In Sodium Chloride 0.9 % 250 ml 242 ml @ 0.1 MCG/KG/MIN 20. 888 mls/hr IV CONT PRN Rx #:[id number] MAG SULFATE 4 GM PREMIX 4 100 gm In 100 ml @ 50 mls/hr IVPB ONE ONE Rx#: [id number] Rocephin 1 Gram Injection 50 1 gm In Sodium Chloride 0.9 % 50 ml 50 ml @ 100 mls/hr IVPB STAT STA Rx#: [id number] Sodium Chloride 0.9 % 1000 1000 ml 1,000 ml @ 125 mls/hr IV .Q8H PRN Rx#: [id number] Sodium Chloride 0.9 % 1000 (more content not included)... Normal [facility] Phosphoruson 09-17-2021 Phosphate [Mass/Vol] 1.0 mg/dL Low 2.5-4.9 [facility] Comment on above: Performed By: #### C [facility] #### [address] [address] Prothrombin Timeon 2 INR Coag (PPP) [Relative time] 1.78 {INR} Normal [facility] Comment on above: Result Comment: 2.0 - 3.0 Group A 2.5 - 3.5 Group B Group A indications: Prophylaxis and treatment of venous thrombosis. Treatment of pulmonary embolism. Prevention of systemic embolism. Tissue heart valves. Acute myocardial infarction. Valvular heart disease. Atrial fibrillation. Group B indications: Mechanical prosthetic valves. . Performed By: #### C BCS #### [facility] [address] [place] [address] PT Coag (PPP) [Time] 16.7 s High 8.9-12.2 [facility] Comment on above: Result Comment: New Reference Ranges effective 2017. Performed By: #### C BCS #### [facility] [address] [place], [place] [id number] pH (BldA)Ordered By: ADRIANE HECTOR on 09-17-2021 pH (Bld) 7.312 [pH] 7.34-7.46 [facility] 2019 Novel Coronavirus (CoVI D-19), NAAon 09-16-2021 SARS-CoV-2 (COVID-19) RNA DAVON+probe Ql (Unsp spec) Not detected Normal Not Detected [facility] Comment on above: Result Comment: This nucleic acid amplification test was developed and its performance characteristics determined by [employer]. Nucleic acid amplification tests include RT-PCR and TMA. This test has not been FDA cleared or approved. This test has been authorized by FDA under an Emergency Use Authorization (EUA). This test is only authorized for the duration of time the declaration that circumstances exist justifying the authorization of the emergency use of in vitro diagnostic tests for detection of SARS-CoV-2 virus and/or diagnosis of COVID-19 infection under section 564(b)(1) of the Act, 21 U.S.C. 360bbb-3(b) (1), unless the authorization is terminated or revoked sooner. When diagnostic testing is negative, the possibility of a false negative result should be considered in the context of a patient's recent exposures and the presence of clinical signs and symptoms consistent with COVID-19. An individual without symptoms of COVID-19 and who is not shedding SARS-CoV-2 virus would expect to have a negative (not detected) result in this assay. Performed at: - [facility] [id number] Global Implementation Manager: Darrell Pavon PhD, Phone: [phone] Performed By: #### P T #### [address] [address] Appearance urOrdered By: SIMBA ROPER on 09-16-2021 Appearance (U) sl.cloudy Clear [facility] Bacteria detection in urine sediment by light microscopyOrdered By: BELA ROPER on 09-16-2021 Bacteria LM Ql (Urine sed) 3+ /hpf 0 - 1+ [facility] CBC w/Auto Differentialon Basophils Abs. # 0.02 K/uL Normal 0.00-0.10 [facility] Comment on above: Performed By: #### C OVAG #### [facility] [address] [place] [address] Basophils/100 WBC (Bld) 0.2 % Normal 0.2-1.0 [facility] Comment on above: Performed By: #### C OVAG #### [facility] [address] [place] [address] Eosinophils (Bld) [#/Vol] 0.00 10*3/uL Normal 0.00-0.2 0 [facility] Comment on above: Performed By: #### C OVAG #### [facility] [address] [place] [address] Eosinophils/100 WBC (Bld) 0.1 % Low 0.9-2.9 [facility] Comment on above: Performed By: #### C OVAG #### [facility] [address] [place] [address] Erythrocyte distribution width (RBC) [Ratio] 14.7 % High 11.5-14.5 [facility] Comment on above: Performed By: #### C OVAG #### [facility] [address] [place] [address] Hematocrit (Bld) [Volume fraction] 39.0 % Normal 33.4-46.0 [facility] Comment on above: Performed By: #### C OVAG #### [facility] [address] [place] [address] Hemoglobin (Bld) [Mass/Vol] 12.1 g/dL Normal 11.1-13.7 [facility] Comment on above: Performed By: #### C OVAG #### [facility] [address] [place] [address] Imm Grans % 0.20 % Normal 0.00-1.00 [facility] Comment on above: Performed By: #### C OVAG #### [facility] [address] [place] [address] Imm Grans Absolute # 0.02 K/uL Normal 0.00-0.10 [facility] Comment on above: Performed By: #### C OVAG #### [facility] [address] [place] [address] Lymphocytes (Bld) [#/Vol] 0.60 10*3/uL Low 1.30-2.9 0 [facility] Comment on above: Performed By: #### C OVAG #### [facility] [address] [place] [address] Lymphocytes/100 WBC (Bld) 6.1 % Low 17.0-45.5 [facility] Comment on above: Performed By: #### C OVAG #### [facility] [place] [address] [place] [address] MCH (RBC) [Entitic mass] 31.6 pg High 27.0-31.0 [facility] Comment on above: Performed By: #### C OVAG #### [facility] [address] [place] [address] MCHC (RBC) [Mass/Vol] 31.0 g/dL Low 33.0-37.0 [facility] Comment on above: Performed By: #### C OVAG #### [facility] [address] [place] [address] MCV (RBC) [Entitic vol] 101.8 fL High 81.0-99.0 [facility] Comment on above: Performed By: #### C OVAG #### [facility] [address] [place] [address] Monocytes (Bld) [#/Vol] 0.70 10*3/uL Normal 0.30-0.80 [facility] Comment on above: Performed By: #### C OVAG #### [facility] [address] [place] [address] Monocytes/100 WBC (Bld) 6.2 % Normal 5.5-11.7 [facility] Comment on above: Performed By: #### C OVAG #### [facility] [address] [place] [address] Neutrophils Abs. # 9.18 K/uL High 2.20-4.80 [facility] Comment on above: Performed By: #### C OVAG #### [facility] [address] [place] [address] Neutrophils/100 WBC (Bld) 87.2 % High 43.0-65.0 [facility] Comment on above: Performed By: #### C OVAG #### [facility] [address] [place] [address] Platelet mean volume (Bld) [Entitic vol] 9.6 fL Normal 7.4-10.4 [facility] Comment on above: Performed By: #### C OVAG #### [facility] [address] [place] [address] Platelets (Bld) [#/Vol] 174 10*3/uL Normal 148-402 [facility] Comment on above: Performed By: #### C OVAG #### [facility] [address] [place] [address] RBC (Bld) [#/Vol] 3.83 10*6/uL Normal 3.83-5.19 [facility] Comment on above: Performed By: #### C OVAG #### [facility] [address] [place] [address] WBC (Bld) [#/Vol] 10.5 10*3/uL Normal 3.6-10.8 [facility] Comment on above: Performed By: #### C OVAG #### [facility] [address] [place] [address] CBLDon 09-16-2021 CBLD Patient: JULIO C WISEMAN MRUN [id number] Location: [facility] Aount: [id number] : 1955 Age: 65 Sex F Lab NumbEr [id number] Requested by: ADRIANE WAYNE Admitdate: 09/16/21 Source: BLOOD Collected: 09/16/21 17:30 Site: MATTI Received : 09/16/21 17:33 OE C O M M E N T S [email or web address]; Huy Site; blood Culture, Blood FINAL 09/21/21 16:48 09/19/21 No growth after 48 hours incubation in aerobic and anaerobic bottle. 09/19/2021 06:25 09/21/21 No growth after 5 days incubation in aerobic and anaerobic bottle. 09/21/2021 16:48 Normal [facility] Comment on above: Performed By: #### M IC2 #### [facility] [address] [address] CBLD Patient: JULIO C WISEMAN [id number] Location: [facility] Aount: [id number] : 1955 Age: 65 Sex F Lab NumbEr [id number] Requested by: ADRIANE WAYNE Admitdate: 09/16/21 Source: BLOOD Collected: 09/16/21 17:30 Site: MATTI Received : 09/16/21 17:34 OE C O M M E N T S [email or web address]; Huy Site; blood Culture, Blood FINAL 09/21/21 16:49 09/19/21 No growth after 48 hours incubation in aerobic and anaerobic bottle. 09/19/2021 06:25 09/21/21 No growth after 5 days incubation in aerobic and anaerobic bottle. 09/21/2021 16:49 Normal [facility] Comment on above: Performed By: #### P T #### [facility] [address] CHEST PA/LATon 09-16-2021 CHEST PA/LAT EXAMINATION: TWO XRAY VIEWS OF THE CHEST 09/16/2021 3:36 pm COMPARISON: None. HISTORY: ORDERING SYSTEM PROVIDED HISTORY: fever FINDINGS: PA and lateral views of the chest were obtained. Heart, mediastinum, and pulmonary vasculature are within normal limits. Lungs and pleural spaces are clear. There are degenerative changes within the spine. There is right reverse shoulder prosthesis. IMPRESSION: No active cardiopulmonary disease. Normal [facility] CURINon 09-16-2021 MARIA DOLORES Patient: JULIO C WISEMAN [id number] Location: [facility] Aount: [id number] : 1955 Age: 65 Sex F Lab NumbEr [id number] Requested by: BELA ROPER Admitdate: 09/16/21 Source: UR Collected: 09/16/21 15:27 Site: Received : 09/16/21 16:10 Culture, Urine FINAL 09/18/21 07:15 09/17/21 AEROBIC CULTURE RESULTS: #1: HEAVY GNB COLONY COUNT: >100,000 CFU/ml Organism 01 Escherichia coli _ Organism E. coli ANTIBIOTICS HUY Interp _ Amikacin <16 S Amoxicillin/K Clavulanate <8/4 S Amp/Sulbactam <8/4 S Ampicillin <8 S Cefazolin <2 S Cefepime <2 S Cefotaxime <2 S Cefotetan <16 S Ceftazidime <1 S Ceftriaxone <1 S Ciprofloxacin <1 S Ertapenem <0.5 S Gentamicin <4 S Levofloxacin <2 S Minocycline <4 S Nitrofurantoin <32 S Piperacillin/Tony <16 S Tetracycline <4 S Tobramycin <4 S Trimeth/Sulfa <2/38 S _ S=Sensitive I=Intermediate R=Resistant _ Normal [facility] Comment on above: Performed By: #### C OVAG #### [facility] [place] [address] [place] [address] Color urOrdered By: BELA BARRIOS on 09-16-2021 Color (U) Dark yellow Yellow [facility] Comprehensive Metabolic Pane nadia 09-16-2021 Albumin [Mass/Vol] 3.0 g/dL Low 3.4-5.0 [facility] Comment on above: Performed By: #### C OVAG #### [facility] [place] [address] [place] [address] Albumin/Globulin [Mass ratio] 0.7 {ratio} Low 1.1-2.5 [facility] Comment on above: Performed By: #### C OVAG #### [facility] [place] [address] [place] [address] ALP [Catalytic activity/Vol] 119 U/L High 54-112 [facility] Comment on above: Performed By: #### C OVAG #### [facility] [place] [address] [place] [address] ALT [Catalytic activity/Vol] 30 U/L Normal 13-66 [facility] Comment on above: Performed By: #### C OVAG #### [facility] [place] [address] [place] [address] Anion gap [Moles/Vol] 15.2 mmol/L Normal 8.0-16.0 [facility] Comment on above: Performed By: #### C OVAG #### [facility] [place] [address] [place] [address] AST [Catalytic activity/Vol] 25 U/L Normal 3-39 [facility] Comment on above: Performed By: #### C OVAG #### [facility] [place] [address] [facility] [place] [address] Bilirubin [Mass/Vol] 1.23 mg/dL High 0.00-0.99 [facility] Comment on above: Performed By: #### C OVAG #### [facility] [address] [facility] [place] [address] Calcium [Mass/Vol] 8.9 mg/dL Normal 8.2-10.0 [facility] Comment on above: Performed By: #### C OVAG #### [facility] [address] [facility] [place] [address] Chloride [Moles/Vol] 100 mmol/L Normal 94-110 [facility] Comment on above: Performed By: #### C OVAG #### [facility] [place] [address] [facility] [place] [address] CO2 [Moles/Vol] 23 mmol/L Normal 21-34 [facility] Comment on above: Performed By: #### C OVAG #### [facility] [place] [address] [facility] [place] [address] Creatinine [Mass/Vol] 1.37 mg/dL High 0.51-0.95 [facility] Comment on above: Performed By: #### C OVAG #### [facility] [place] [address] [facility] [place] [address] EGFR Other Races 38 Abnormal >60 [facility] Comment on above: Performed By: #### C OVAG #### [facility] [address] [place] [address] GFR/1.73 sq M.predicted among blacks MDRD (S/P/Bld) [Vol rate/Area] 46 mL/min/{1.73_m2} Abnormal >60 [facility] Comment on above: Result Comment: [employer] Kidney Disease less than 60 mL/min/1.73 m2 Kidney Failure less than 15 mL/min/1.73 m2 Average estimated GFR by age: 60-69 years 85 mL/min/1.73 m2 Performed By: #### C OVAG #### [facility] [address] [place] [address] Globulin (S) [Mass/Vol] 4.2 g/dL Normal 1.5-4.5 [facility] Comment on above: Result Comment: CO RRECTED REPORT: Previous result was 4.3 at 15:14 on 09/16/21 Performed By: #### C OVAG #### [facility] [address] [place] [address] Glucose [Mass/Vol] 140 mg/dL High 65-100 [facility] Comment on above: Performed By: #### C OVAG #### [facility] [address] [place] [address] Potassium [Moles/Vol] 4.2 mmol/L Normal 3.3-5.1 [facility] Comment on above: Performed By: #### C OVAG #### [facility] [address] [place] [address] Protein [Mass/Vol] 7.2 g/dL Normal 6.1-8.2 [facility] Comment on above: Performed By: #### C OVAG #### [facility] [address] [place] [address] Sodium [Moles/Vol] 134 mmol/L Normal 132-145 [facility] Comment on above: Performed By: #### C OVAG #### [facility] [address] [place] [address] Urea nitrogen [Mass/Vol] 19.5 mg/dL Normal 3.2-26.9 [facility] Comment on above: Performed By: #### C OVAG #### [facility] [address] [place] [address] Urea nitrogen/Creatinine [Mass ratio] 14 mg/mg Normal 6-20 [facility] Comment on above: Performed By: #### C OVAG #### [facility] [address] [place] [address] Detection in respiratory spe cimen of antigen of either or both severe acute respiratoOrdered By: BELA ROPER on 09-16-2021 SARS-CoV+SARS-CoV-2 (COVID-19) Ag IA.rapid Ql (Resp) Negative Negative [facility] Comment on above: The Allyson 2 SARS Ant igen NIYAH is a lateral flow immunofluorescent sandwich assay that is used with the Allyson 2 instrument intended for the qualitative detection of the nucleocapsid protein antigen from SARS-CoV-2 in nasopharyngeal (FOREIGN TRADE TEACHER) and nasal (NS) swab specimens directly or after the swabs have been added to viral transport media from individuals who are suspected of COVID-19 by their healthcare provider. Testing is limited to laboratories certified under the Clinical Laboratory Improvement Amendments of 1988 (CLIA), 42 U.S.C. 263a, that meet the requirements to perform moderate, high or waived complexity tests. This test is authorized for use at the Point of Care (POC), i.e., in patient care settings operating under a CLIA Certificate of Waiver, Certificate of Compliance, or Certificate of Accreditation. The SARS Antigen NIYAH does not differentiate between SARS-CoV and SARS-CoV-2. Results are for the identification of SARS-CoV-2 nucleocapsid protein antigen. Antigen is generally detectable in upper respiratory specimens during the acute phase of infection. Positive results indicate the presence of viral antigens, but clinical correlation with patient history and other diagnostic information is necessary to determine infection status. Positive results do not rule out bacterial infection or co-infection with other viruses. The agent detected may not be the definite cause of disease. Negative results should be treated as presumptive and confirmed with a molecular assay, if necessary for patient management. Negative results do not rule out COVID-19 and should not be used as the sole basis for treatment or patient management decisions, including infection control decisions. Negative results should be considered in the context of a patient s recent exposures, history and the presence of clinical signs and symptoms consistent with COVID-19. Ketones Test strip Ql (U)Ord ered By: BELA ROPER on 09-16-2021 Ketones Ql (U) Negative Negative [facility] Laboratory - Chemistry and C hemistry - challengeOrdered By: BELA ROPER on 09-16-2021 Bilirubin Ql (U) 1 Negative [facility] Glucose Ql (U) Normal Negative [facility] Laboratory - UrinalysisOrder ed By: BELA ROPER on 09-16-2021 Epithelial cells LM Ql (Urine sed) 3-6 /lpf 0 - 6 [facility] Lactic Acid (Venous)on 09-16 Lactate [Moles/Vol] 1.3 mmol/L Normal 0.4-2.0 [facility] Comment on above: Result Comment: Plea se note change in normal range Performed By: #### P T #### [address] [address] Magnesiumon 09-16-2021 Magnesium [Mass/Vol] 1.5 mg/dL Normal 1.3-2.3 [facility] Comment on above: Performed By: #### C BCS #### [facility] [address] [place] [address] Nitrite Test strip Ql (U)Ord ered By: BELA ROPER on 09-16-2021 Nitrite Ql (U) Positive Negative [facility] No Panel InformationOrdered By: ADRIANE WAYNE on 09-16-2021 Plasma Lactic Acid, Venous 1.3 mmol/L 0.4-2.0 [facility] Comment on above: Please note change i n normal range No Panel InformationOrdered By: BELA ROPER on 09-16-2021 Urine WBC 50-100 /hpf 0 - 6 [facility] Urine Urobilinogen Normal mg/dL Normal-1.0 [facility] Protein ur QLOrdered By: SIMBA ROPER on 09-16-2021 Protein Ql (U) 75 Negative [facility] Prothrombin Timeon INR Coag (PPP) [Relative time] 1.77 {INR} Normal [facility] Comment on above: Result Comment: 2.0 - 3.0 Group A 2.5 - 3.5 Group B Group A indications: Prophylaxis and treatment of venous thrombosis. Treatment of pulmonary embolism. Prevention of systemic embolism. Tissue heart valves. Acute myocardial infarction. Valvular heart disease. Atrial fibrillation. Group B indications: Mechanical prosthetic valves. . Performed By: #### P T #### [id number] [place] [address] PT Coag (PPP) [Time] 16.6 s High 8.9-12.2 [facility] Comment on above: Result Comment: New Reference Ranges effective 2017. Performed By: #### P T #### [address] [address] RBC LM Ql (Urine sed)Ordered By: BELA ROPER on 09-16-2021 RBC Ql (U) 0-2 /hpf 0 - 2 [facility] RBC Test strip (U) [#/Vol]Or dered By: BELA ROPER on 09-16-2021 RBC (U) [#/Vol] 50 /uL Negative [facility] SARS Antigen (Rapid)on 09-16 SARS Antigen Negative Normal Negative [facility] Comment on above: Result Comment: The Allyson 2 SARS Antigen NIYAH is a lateral flow immunofluorescent sandwich assay that is used with the Allyson 2 instrument intended for the qualitative detection of the nucleocapsid protein antigen from SARS-CoV-2 in nasopharyngeal (FOREIGN TRADE TEACHER) and nasal (NS) swab specimens directly or after the swabs have been added to viral transport media from individuals who are suspected of COVID-19 by their healthcare provider. Testing is limited to laboratories certified under the Clinical Laboratory Improvement Amendments of 1988 (CLIA), 42 U.S.C. ?263a, that meet the requirements to perform moderate, high or waived complexity tests. This test is authorized for use at the Point of Care (POC), i.e., in patient care settings operating under a CLIA Certificate of Waiver, Certificate of Compliance, or Certificate of Accreditation. The SARS Antigen NIYAH does not differentiate between SARS-CoV and SARS-CoV-2. Results are for the identification of SARS-CoV-2 nucleocapsid protein antigen. Antigen is generally detectable in upper respiratory specimens during the acute phase of infection. Positive results indicate the presence of viral antigens, but clinical correlation with patient history and other diagnostic information is necessary to determine infection status. Positive results do not rule out bacterial infection or co-infection with other viruses. The agent detected may not be the definite cause of disease. Negative results should be treated as presumptive and confirmed with a molecular assay, if necessary for patient management. Negative results do not rule out COVID-19 and should not be used as the sole basis for treatment or patient management decisions, including infection control decisions. Negative results should be considered in the context of a patient?s recent exposures, history and the presence of clinical signs and symptoms consistent with COVID-19. Performed By: #### C [facility] #### [address] [address] Severe acute respiratory syn drome coronavirus 2 (SARS-CoV-2) RNA detection by probe aOrdered By: BELA ROPER on 09-16-2021 SARS-CoV-2 (COVID-19) RNA DAVON+probe Ql (Unsp spec) Not detected Not Detected [facility] Comment on above: This nucleic acid am plification test was developed and its performance characteristics determined by [employer]. Nucleic acid amplification tests include RT-PCR and TMA. This test has not been FDA cleared or approved. This test has been authorized by FDA under an Emergency Use Authorization (EUA). This test is only authorized for the duration of time the declaration that circumstances exist justifying the authorization of the emergency use of in vitro diagnostic tests for detection of SARS-CoV-2 virus and/or diagnosis of COVID-19 infection under section 564(b)(1) of the Act, 21 U.S.C. 360bbb-3(b) (1), unless the authorization is terminated or revoked sooner. When diagnostic testing is negative, the possibility of a false negative result should be considered in the context of a patient's recent exposures and the presence of clinical signs and symptoms consistent with COVID-19. An individual without symptoms of COVID-19 and who is not shedding SARS-CoV-2 virus would expect to have a negative (not detected) result in this assay. Performed at: [address] [id number] Global Implementation Manager: Darrell Pavon PhD, Phone: [phone] Specific gravity Test strip (U) [Rel density]Ordered By: BELA ROPER on 09-16-2021 Specific gravity (U) [Rel density] 1.015 1.015-1.02 5 [facility] UA w/mandatory microscopicon 09-16-2021 Appearance (U) sl.cloudy Normal Clear [facility] Comment on above: Performed By: #### C BCS #### [facility] [address] [place], [place] [id number] Bacteria 3+ /hpf Normal 0 - 1+ [facility] Comment on above: Performed By: #### C BCS #### [facility] [address] [place] [address] Bilirubin Ql (U) 1 Abnormal Negative [facility] Comment on above: Performed By: #### C BCS #### [facility] [address] [place] [address] Casts FOREIGN TRADE TEACHER Normal [facility] Comment on above: Performed By: #### C BCS #### [facility] [place] [address] [place] [address] Casts. FOREIGN TRADE TEACHER Normal [facility] Comment on above: Performed By: #### C BCS #### [facility] [place] [address] [place] [address] Color (U) Dark Yellow Abnormal Yellow [facility] Comment on above: Performed By: #### C BCS #### [facility] [place] [address] [place] [address] Crystals LM Nom (Urine sed) FOREIGN TRADE TEACHER Normal [facility] Comment on above: Performed By: #### C BCS #### [facility] [place] [address] [place] [address] Crystals. FOREIGN TRADE TEACHER Normal [facility] Comment on above: Performed By: #### C BCS #### [facility] [place] [address] [facility] [place] [address] Epithelial cells LM Ql (Urine sed) 3-6 Normal 0 - 6 [facility] Comment on above: Performed By: #### C BCS #### [facility] [place] [address] [place] [address] Glucose Ql (U) NORMAL Normal Negative [facility] Comment on above: Performed By: #### C BCS #### [facility] [place] [address] [place] [address] Hemoglobin Ql (U) 50 Abnormal Negative [facility] Comment on above: Performed By: #### C BCS #### [facility] [place] [address] [place] [address] Ketones Ql (U) Negative Normal Negative [facility] Comment on above: Performed By: #### C BCS #### [facility] [place] [address] [place] [address] Leukocytes Esterase 2+ Abnormal Negative [facility] Comment on above: Performed By: #### C BCS #### [facility] [place] [address] [place] [address] Mucus Ql (Urine sed) FOREIGN TRADE TEACHER Normal [facility] Comment on above: Performed By: #### C BCS #### [facility] [place] [address] [facility] [place] [address] Nitrite Ql (U) Positive Abnormal Negative [facility] Comment on above: Performed By: #### C BCS #### [facility] [address] [facility] [place] [address] pH (U) 5 [pH] Normal [facility] Comment on above: Performed By: #### C BCS #### [facility] [address] [facility] [place] [address] Protein Ql (U) 75 Normal Negative [facility] Comment on above: Performed By: #### C BCS #### [facility] [address] [facility] [place] [address] RBC 0-2 Normal 0 - 2 [facility] Comment on above: Performed By: #### C BCS #### [facility] [address] [facility] [place] [address] Specific gravity (U) [Rel density] 1.015 Normal 1.015-1.02 5 [facility] Comment on above: Performed By: #### C BCS #### [facility] [place] [address] [facility] [place] [address] Trichomonas FOREIGN TRADE TEACHER Normal [facility] Comment on above: Performed By: #### C BCS #### [facility] [address] [facility] [place] [address] Urobilinogen NORMAL Normal Normal-1.0 [facility] Comment on above: Performed By: #### C BCS #### [facility] [place] [address] [place] [address] WBC 50-100 Normal 0 - 6 [facility] Comment on above: Performed By: #### C BCS #### [facility] [place] [address] [place] [address] Yeast FOREIGN TRADE TEACHER Normal [facility] Comment on above: Performed By: #### C BCS #### [facility] [place] [address] [facility] [place] [address] Other FOREIGN TRADE TEACHER Normal [facility] Comment on above: Performed By: #### C BCS #### [facility] [address] [place] [address] Urine leukocyte esterase det ection by dipstickOrdered By: BELA ROPER on 09-16-2021 Leukocyte esterase Test strip Ql (U) 2+ Negative [facility] pH Test strip (U)Ordered By: BELA ROPER on 09-16-2021 pH (U) 5 [pH] [facility] Laboratory - Drug toxicology on 07-12-2021 Amphetamines Ql (U) Negative <1000 ng/mL [facility] Work Phone: Benzodiazepines Ql (U) Negative < 200 ng/mL [facility] Work Phone: Cannabinoids Screen Ql (U) Negative < 50 ng/mL [facility] Work Phone: Cocaine Ql (U) Negative < 300 ng/mL [facility] Work Phone: Opiates Ql (U) Positive < 300 ng/mL [facility] Work Phone: No Panel Informationon 07-12 MDMA (Ecstasy) Screen Positive < 500 ng/mL [facility] Work Phone: Miscellaneous Test See comment [facility] Work Phone: Comment on above: [phone] 6+OXYCODONE-B UND (ng/mL) DRUG RESULT SCREEN CUTOFF____ Amphetamines,Urine Negative ng/mL 1000 Amphetamine test includes Amphetamine and Methamphetamine.Barbiturates Negative ng/mL 200Benzodiazepines Negative ng/mL 200Cannabinoid Negative ng/mL 20Cocaine (Metab) Negative ng/mL 300Opiates Positive ng/mL 300 Opiates test includes Codeine, Morphine, Hydromorphone, Hydrocodone. Please Note: Confirmation performed by Mass Spectrometry Codeine Negative Morphine Negative Hydromorphone Positive Hydromorphone Conf, MS, UR 484 ng/mL 300 Hydrocodone Positive Hydrocodone Conf, [place], [place] 2084 ng/mL 300Oxycodone/Oxymorphone,Urine Negative ng/mL 300 Test includes Oxydodone and Oxymorphone. TESTING PERFORMED AT [facility]. ORIGINAL REPORT ON FILE IN LAB CONTAINS ADDITIONAL TEST SITE INFORMATION. Urine Barbiturates Screen Negative < 200 ng/mL [facility] Work Phone: Urine Drug Screen Comment [facility] Work Phone: Comment on above: CONFIRMATORY TESTING FOR ALL POSITIVE URINE DRUG SCREENRESULTS WILL ONLY BE SENT OUT UPON PHYSICIAN ORDER. VISTA Urine Drug Screen methods provide only preliminaryanalytical test results. A more specific alternate chemicalmethod must be used in order to obtain a confirmedanalytical result. Gas chromatography/mass spectrometery(GC/MS) is the preferred confirmatory method. Clinicalconsideration and professional judgement should be appliedto any drug of abuse test result, particularly whenpreliminary positive results are used. URINE TCA TESTING MUST BE ORDERED SEPARATELY. USE TESTMNEMONIC: [facility] Urine Methadone Screen Negative < 300 ng/mL [facility] Work Phone: Urine phencyclidine (PCP) de tectionon 07-12-2021 Phencyclidine Ql (U) Negative < 25 ng/mL [facility] Work Phone: Clinical Summary: Arsalan smith 04-19-2021 [facility] OP Visit Invalid Interpretation Code [facility] Work Phone: CT C-SPINE WO CONTRASTon CT C-SPINE WO CONTRAST Patient Name: IVON WISEMAN STUDY: CT C-SPINE WO CONTRAST; 02/18/2019 9:43 am INDICATION: fall. COMPARISON: None. ACCESSION NUMBER(S): [id number] ORDERING CLINICIAN: PAULO GARIBAY TECHNIQUE: Contiguous unenhanced axial images were obtained through the cervical spine with coronal and sagittal reformations of the axial data. FINDINGS: ALIGNMENT: The craniocervical junction appears intact. The dens and atlantoaxial relation appear intact with regional mild marginal spurring. Cervical alignment is normal. VERTEBRAE/DISC SPACES: Multilevel disc space narrowing and endplate spurring is most prominent at C5-6 and C6-7. There is mild multilevel facet arthrosis bilaterally throughout the cervical spine as well. Foraminal narrowing appears to be greatest bilaterally at C5-6. no acute fracture, subluxation, or compression deformity is seen. ADDITIONAL FINDINGS: Prevertebral soft tissues are not thickened. There are irregular carotid atherosclerotic calcifications in the neck bilaterally. IMPRESSION: Multilevel degenerative disc and facet changes most prominent at C5-6 and C6-7. No acute fracture or subluxation of the cervical spine. Electronically signed by: VIRGILIO MCLAIN MD [facility] CT HEAD WO CONTRASTon 2018 CT HEAD WO CONTRAST Patient Name: IVON WISEMAN STUDY: CT HEAD WO CONTRAST; 02/18/2019 9:43 am INDICATION: fall. Fell and hit forehead. COMPARISON: None. ACCESSION NUMBER(S): [id number] ORDERING CLINICIAN: PAULO GARIBAY TECHNIQUE: Contiguous unenhanced axial images were obtained through the brain. FINDINGS: INTRACRANIAL: Atrophy is present with compensatory ventricular and subarachnoid space prominence. Irregular atherosclerotic calcifications are greatest in the internal carotid artery segments. No acute intracranial bleed, midline shift, or mass effect is seen. Shin-white differentiation is maintained. No extra-axial fluid collection or hydrocephalus. Bones are intact. EXTRACRANIAL: Minimal peripheral mucosal thickening present in the paranasal sinuses without visualized air-fluid level. Mastoid air cells are clear. IMPRESSION: No acute intracranial process. Electronically signed by: VIRGILIO MCLAIN MD [facility] Provider Note - ED v2on 01-27 Provider Note - ED v2 Provider Note - ED v2: Chart Review: ED NOTES ED NOTES: 63-year-old female presents by ambulance after she slipped on a wet floor at [facility] and fell forward hitting her forehead. Patient also jammed her right wrist. Patient denies any loss of consciousness with the fall. Patient denies any other associated injury. I did speak to the patient indicating all the x-rays were negative. Patient will be discharged home. HISTORY OF PRESENTING ILLNESS IVON is a 63 year old Female and was seen by me at 18-Feb-2019 09:05 for a chief complaint of fall . Other complaints include: Pt states she slipped and fell at [facility] this morning. Complains of right wrist and right knee pain. Did hit head but denies LOC or neck pain. Pt is on blood thinners. Abrasion noted to nose . The historian is the patient. Triage Information: Most recent Vital Sign Value Date Temp (F): 98 02-18-2019 08:57 Temp (C): 36.6 02-18-2019 08:57 Heart Rate (beats/min): 78 02-18-2019 08:57 Respirations (breaths/min): 18 02-18-2019 08:57 SpO2 (%): 97 02-18-2019 08:57 BP Systolic (mm Hg): 158 02-18-2019 08:57 BP Diastolic (mm Hg): 81 02-18-2019 08:57 PAST MEDICAL HISTORY ATTESTATION: I have reviewed and confirmed nurse's/medic's notes for patient's medications, allergies, medical history, and surgical history PSYCHOSOCIAL SCREENING: NO: concerns for safety at home, feelings of depression, feels like hurting others and feels like hurting self ALLERGIES/INTOLERANCES : Allergy Allergen: flecainide Type: Drug Reaction: Rash HEALTH HISTORY: No documented data. OUTPATIENT MEDICATIONS: Home Medications Review Status for Reconciliation: N/A Med Status: N/A No documented data. SIGNIFICANT EVENTS: Past Medical History Description:Hypertensi on (HTN) Description:Hyperlipid emia Description:Chronic Obstructive Pulmonary Disease (COPD) Description:Congestive Heart Failure (CHF) Description:Diabetes Description:other Additional Notes:PE and DVT REVIEW OF SYSTEMS All other systems reviewed and are negative PHYSICAL EXAM CONSTITUTIONAL: Well appearing, well nourished, awake, alert, oriented to person, place, time/situation and in no apparent distress. HENMT: Airway patent, ears with clear tympanic membranes bilaterally. Nasal mucosa clear. Mouth with normal mucosa. Throat has no vesicles, no oropharyngeal exudates and uvula is midline. Face with no lymph node enlargement. EYES: Clear bilaterally, pupils equal, round and reactive to light. CARDIOVASCULAR: Normal rate, regular rhythm. Heart sounds S1, S2. No murmurs, rubs or gallops. PMI non-displaced. RESPIRATORY: Breath sounds clear and equal bilaterally. GASTROINTESTINAL: Abdomen soft, non-distended, no rebound, no guarding. Bowel sounds normal in all 4 quadrants. GENITOURINARY: No discharge, no lesions. MUSCULOSKELETAL: Spine appears normal, range of motion is not limited, no muscle or joint tenderness slight right wrist pain with movement. NEUROLOGICAL: Alert and oriented, no focal deficits, no motor or sensory deficits. Right forehead hematoma. SKIN: Skin normal color for race, warm, dry and intact. No evidence of trauma. PSYCHIATRIC: Alert and oriented to person, place, time/situation. normal mood and affect. No apparent risk to self or others. HEME/LYMPH: No adenopathy or splenomegaly. No cervical, supraclavicular or inguinal lymphadenopathy. RESULTS/VITAL SIGNS RESULTS: Radiology Results: Impression: Multilevel degenerative disc and facet changes most prominent at C5-6 and C6-7. No acute fracture or subluxation of the cervical spine. CT C Spine without Contrast [Feb 18 2019 9:54AM] Impression: No acute intracranial process. CT Head without Contrast [Feb 18 2019 9:51AM] Impression: No obvious fracture. Xray Wrist Complete Min 3 View [Feb 18 2019 9:34AM] VITAL SIGNS: T PRBP SpO2O2(LPM) %FiO2 Method 18-Feb-2019 08:57:[id number] 1 97 room air, no respiratory support CLINICAL IMPRESSION Diagnosis/Annotation: ED Dx Name:Head injury, acute Code:S09.90XA Dispostion: discharged Type: home ATTESTATION Comments/Additional Findings: Neuro checks every 4 hours, any changes return to ED. Motrin or Tylenol for pain. Follow-up with family medical doctor as needed. CRITICAL CARE TIME Is this a critically ill patient: no Electronic Signatures: Paulo Garibay () (Signed 18-Feb-2019 10:20) Authored: Provider Note - ED v2 Last Updated: 18-Feb-2019 10:20 by Paulo Garibay () References: 1. Data Referenced From Triage - ED 18-Feb-2019 08:57 Normal [facility] Risk Screen - Adult Emergenc yon 02-18-2019 Risk Screen - Adult Emergency Preferred Language: Preferred Language: Preferred Language for Discussing Health Care (patient/designee)Engl lisbet Advanced Directives: Advance Directive/DNRno Family Violence Adult: Abuse Screen: Are you or have you been threatened or abused physically, emotionally, or sexually by anyoneno Learning Assessment (Patient): Learning Assessment (Patient): Patient is Able to be Assessed for Learningyes Factors Influencing Readiness to Learnpain Factors that Impact Ability to Learnnone Devices/Methods Used to Communicatenone Learning Preferenceswritten material; verbal instruction Cultural Considerationsnone Developmental Considerationsnone Jewish Considerationsnone Learning Assessment (Other Learner): Learning Assessment (Other Learner): Other learner availableno Pressure Injury/TB/Substance: Pressure Injury: Pressure Injury Present on Admissionno Do you have a coughno Substance Use Current or Former Historynever: Cigarette/Tobacco, e-Cigarette/Vaping, Alcohol, Street Drugs Admission Risk Screen: Significant IndicatorsComplete CAGE: CAGE: Is this an injured patient at a Trauma Center ([facility]/[place]/[facility]/[place]): no Electronic Signatures: Sanaz PérezRN) (Signed 18-Feb-2019 09:02) Authored: Preferred Language, Advanced Directives, Family Violence Adult, Learning Assessment (Patient), Learning Assessment (Other Learner), Pressure Injury/TB/Substance, CAGE Last Updated: 18-Feb-2019 09:02 by Sanaz Pérez (LEONA) [facility] Triage - EDon 02-18-2019 Triage - ED Quick Triage: The patient and/or guardian verbally acknowledges placement for services into the following (when Urgent Care Service hours are operating):emergency department Chart Review: CHIEF COMPLAINT IVON WISEMAN is a Female patient with a chief complaint of fall. Onset of the Complaint: 18-Feb-2019 Other Complaints: Pt states she slipped and fell at [employer] this morning. Complains of right wrist and right knee pain. Did hit head but denies LOC or neck pain. Pt is on blood thinners. Abrasion noted to nose Triage Date/Time: 18-Feb-2019 08:57 Pain Rating (0-10): 8 = Severe Pain location: right wrist Vital Signs: Temperature: 98.0F ( 36.6C) taken oral Blood Pressure: 158/81 Mean: Heart Rate: 78 Respiratory Rate: 18 Pulse Oximetry: 97% on room air, no respiratory support. Height: 5 feet 5.00 inches. 165.1 CM Weight: 233.0 pounds. Calculated 105.6 kg. (stated) Calculated BMI (kg/m2): 38.740 Calculated BSA (m2) 2.20 Lydia Coma Scale: Best Eye Response: (E4) spontaneous Best Motor Response: (M6) obeys commands Best Verbal Response: (V5) oriented Vinton Score: 15 Travel outside of [place]: no Allergies: yes Patient has homicidal thoughts: no STEVEN: 3 Symptoms Are POSITIVE For: abrasion, bruising and pain (describe). Symptoms Are Negative For: bleeding, confusion, decreased ROM, deformity, loss of consciousness, numbness and seizure. Risk Screens Suicide Risk Screen In the Past Month: Have you wished you were or wished you could go to sleep and not wake up no In the Past Month: Have you had any actual thoughts of killing yourself no In Your Lifetime: Have you ever done anything, started to do anything, or prepared to do anything to end your life no Velazquez Fall Scale Screening Has the patient fallen before (or is the patient in the ED as a result of a fall) has had a fall Does the patient have an impaired gait does not have impaired gait Is the patient cognitively impaired not cognitively impaired Velazquez Fall Scale History of falling (immediate or previous) yes (25) Secondary Diagnosis yes (15) Intravenous Therapy/ Heparin/Saline Lock no (0 Gait/Transferring normal/bedrest/wheelch air (0) Ambulatory Aids crutches/walker/cane (15) Mental Status oriented to own ability (0) Velazquez Fall Risk Score: 55 Interventions: Velazquez Fall Interventions: *LOW AND MODERATE INTERVENTIONS PLUS: * supervised toileting at all times PAIN Pain Scale Used: JONATHAN Pain Rating (0-10): 8 = Severe Past Medical History: Past Medical History Reviewedyes other: Past Medical History, PE and DVT, Active Diabetes: Past Medical History, Active Congestive Heart Failure (CHF): Past Medical History, Active Chronic Obstructive Pulmonary Disease (COPD): Past Medical History, Active Hyperlipidemia: Past Medical History, Active Hypertension (HTN): Past Medical History, Active Electronic Signatures: Sanaz Pérez (RN) (Signed 18-Feb-2019 09:02) Authored: Triage, Past Medical History Last Updated: 18-Feb-2019 09:02 by Sanaz Pérez (LEONA) [facility] WRIST COMPLT MIN 3 VIEWSon 1 04-21-2018 WRIST COMPLT MIN 3 VIEWS Patient Name: IVON WISEMAN STUDY: WRIST COMPLT; MIN 3 VIEWS; 02/18/2019 9:27 am INDICATION: fall. COMPARISON: None. ACCESSION NUMBER(S): [id number] ORDERING CLINICIAN: PAULO GARIBAY TECHNIQUE: PA, lateral and oblique and navicular images of the left wrist were obtained. FINDINGS: There is no obvious fracture, dislocation or bone destruction. There are mild degenerative changes of 1st metacarpal-carpal joint. There are arterial calcifications. IMPRESSION: No obvious fracture. Electronically signed by: ELISA LU MD [facility] Office Visiton 12-07-2016 Documentation of current medications (procedure) Done Invalid Interpretation Code [facility] Work Phone: Smoking cessation education (procedure) yes Invalid Interpretation Code [facility] Work Phone: Tobacco use CPHS Current every day smoker Invalid Interpretation Code [facility] Work Phone: Office Visiton 10-11-2016 Documentation of current medications (procedure) Done Invalid Interpretation Code [facility] Work Phone: [phone] Smoking cessation education (procedure) yes Invalid Interpretation Code [facility] Work Phone: [phone] Tobacco use CPHS Current every day smoker Invalid Interpretation Code [facility] Work Phone: [phone] Office Visiton 09-13-2016 Documentation of current medications (procedure) Done Invalid Interpretation Code [facility] Work Phone: [phone] Protein [facility] conc [facility] Work Phone: [phone] Protein mass conc yes [facility] Work Phone: [phone] Smoking cessation education (procedure) yes Invalid Interpretation Code [facility] Work Phone: [phone] Tobacco smoking status NHIS Current every day smoker [facility] Work Phone: [phone] Tobacco use CP Current every day smoker Invalid Interpretation Code [facility] Work Phone: [phone] Lab Report: Bedside Glucoseo n 09-05-2016 Glucose 135 mg/dL High 70-110 [facility] Work Phone: [phone] Glucose mass conc 135 mg/dL High 70-110 [facility] Work Phone: [phone] Lab Report: INR Fingersticko n 09-05-2016 INR Coag RelTime (PPP) 1.10 {INR} Invalid Interpretation Code [facility] Work Phone: [phone] INR in blood by coagulation 1.10 {INR} Invalid Interpretation Code [facility] Work Phone: [phone] Lab Report: Prothrombin Time Fingerstickon 09-05-2016 Prothrombin time (PT) Coag time (PPP) 13.5 s Invalid Interpretation Code 11.9-14.4 [facility] Work Phone: [phone] Lab Report: Hemoglobin A1con 08-31-2016 HbA1c 7.2 % High 4.2-6.3 [facility] Work Phone: [phone] Office Visit: [facility] 09-01-19 Fall risk assessment No Invalid Interpretation Code [facility] Work Phone: [phone] Office Visiton 08-09-2016 Documentation of current medications (procedure) Done Invalid Interpretation Code [facility] Work Phone: [phone] Protein mass conc yes [facility] Work Phone: [phone] Protein mass conc Done [facility] Work Phone: [phone] Smoking cessation education (procedure) yes Invalid Interpretation Code [facility] Work Phone: [phone] Tobacco smoking status NHIS Current every day smoker [facility] Work Phone: [phone] Tobacco use CPHS Current every day smoker Invalid Interpretation Code [facility] Work Phone: [phone] Office Visiton 07-14-2016 Documentation of current medications (procedure) Done Invalid Interpretation Code [facility] Work Phone: [phone] Protein mass conc yes [facility] Work Phone: [phone] Protein mass conc Done [facility] Work Phone: [phone] Smoking cessation education (procedure) yes Invalid Interpretation Code [facility] Work Phone: [phone] Tobacco smoking status NHIS Current every day smoker [facility] Work Phone: [phone] Tobacco use CPHS Current every day smoker Invalid Interpretation Code [facility] Work Phone: [phone] Lab Report: INR Fingersticko n 03-28-2016 INR Coag RelTime (PPP) 1.20 {INR} [facility] Work Phone: [phone] INR in blood by coagulation 1.20 {INR} Invalid Interpretation Code [facility] Work Phone: [phone] Lab Report: Prothrombin Time Fingerstickon 03-28-2016 Coagulation tissue factor induced in platelet poor plasma 13.7 s Invalid Interpretation Code 11.9-14.4 [facility] Work Phone: [phone] Lab Report: Prothrombin Time w/INRon 03-27-2016 Coagulation tissue factor induced in platelet poor plasma 15.2 s High 11.7-14.9 [facility] Work Phone: [phone] Lab Report: Liver Profileon 03-23-2016 Alanine aminotransferase (ALT) 76 U/L Invalid Interpretation Code 12-78 [facility] Work Phone: [phone] Albumin 3.3 g/dL Low 3.4-5.0 [facility] Work Phone: [phone] Alkaline phosphatase (ALP) 173 U/L High 45-117 [facility] Work Phone: [phone] ALP enzyme act/vol (Bld) 173 U/L High 45-117 [facility] Work Phone: [phone] Aspartate aminotransferase (AST) 96 U/L High 15-37 [facility] Work Phone: [phone] Bilirubin (direct) 0.25 mg/dL Invalid Interpretation Code 0.00-0.30 [facility] Work Phone: [phone] Bilirubin (total) 0.90 mg/dL Invalid Interpretation Code 0.20-1.00 [facility] Work Phone: [phone] Globulin 3.6 g/dL High 2.3-3.5 [facility] Work Phone: [phone] Globulin mass conc (S) 3.6 g/dL High 2.3-3.5 [facility] Work Phone: [phone] Protein 6.9 g/dL Invalid Interpretation Code 6.4-8.2 [facility] Work Phone: [phone] Lab Report: Partial Thrombop last Timeon 03-23-2016 aPTT 42.3 s High 24.1-36.2 [facility] Work Phone: [phone] Clinical Lists Update: Monie santos Noteon 03-08-2016 Left ventricular Ejection fraction 60 % Invalid Interpretation Code [facility] Work Phone: [phone] Replaced Document: Jd TEAGUE Observationson 02-29-2016 EKG QRS axis 33 deg Invalid Interpretation Code [facility] Work Phone: [phone] electrocardiogram interpretation Sinus Rhythm - frequent ectopic ventricular beat s # VECs = 3BORDERLINE RHYTHM Invalid Interpretation Code [facility] Work Phone: [phone] GE use only - for LinkLogic import when terms are not otherwise specified 410 ms Invalid Interpretation Code [facility] Work Phone: [phone] Interpretation Sinus Rhythm - frequent ectopic ventricular beat s # VECs = 3BORDERLINE RHYTHM Invalid Interpretation Code [facility] Work Phone: [phone] P [place] 46 deg Invalid Interpretation Code [facility] Work Phone: [phone] P wave axis, electrocardiogram 46 deg Invalid Interpretation Code [facility] Work Phone: [phone] NH Interval 156 ms Invalid Interpretation Code [facility] Work Phone: [phone] NH interval, electrocardiogram 156 ms Invalid Interpretation Code [facility] Work Phone: [phone] Pulse (Heart Rate) 92 /min Invalid Interpretation Code [facility] Work Phone: [phone] QRS axis, electrocardiogram 33 deg Invalid Interpretation Code [facility] Work Phone: [phone] QRS Duration 100 ms Invalid Interpretation Code [facility] Work Phone: [phone] QRS duration, electrocardiogram 100 ms Invalid Interpretation Code [facility] Work Phone: [phone] QT Interval new path ms Invalid Interpretation Code [facility] Work Phone: QT interval, electrocardiogram new path ms Invalid Interpretation Code [facility] Work Phone: [phone] QTc [place] 410 ms Invalid Interpretation Code [facility] Work Phone: [phone] T [place] -1 deg Invalid Interpretation Code [facility] Work Phone: [phone] T wave axis, electrocardiogram -1 deg Invalid Interpretation Code [facility] Work Phone: [phone] Clinical Lists Update: 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-10-2016 Anion gap 5 mmol/L Invalid Interpretation Code [facility] Work Phone: [phone] Anion gap molar conc 5 mmol/L [facility] Work Phone: [phone] BUN/Creatinine Ratio 23.3 mg/mg High [facility] Work Phone: [phone] Calcium 9.1 mg/dL Invalid Interpretation Code [facility] Work Phone: [phone] Chloride 103 mmol/L Invalid Interpretation Code [facility] Work Phone: [phone] CO2 27 mmol/L Invalid Interpretation Code [facility] Work Phone: [phone] CO2 ppres (BldV) 27 mmol/L [facility] Work Phone: [phone] Creatinine 0.73 mg/dL Invalid Interpretation Code [facility] Work Phone: [phone] Glucose 156 mg/dL High [facility] Work Phone: [phone] Glucose mass conc 156 mg/dL High [facility] Work Phone: [phone] Hematocrit (HCT) 40.9 % Invalid Interpretation Code [facility] Work Phone: [phone] Hematocrit Volume Fraction (Bld) 40.9 % [facility] Work Phone: [phone] Hemoglobin (HGB) 13.4 g/dL Invalid Interpretation Code [facility] Work Phone: [phone] Platelets 211 10*3/mm3 Invalid Interpretation Code [facility] Work Phone: [phone] Platelets #/vol (Bld) 211 10*3/mm3 [facility] Work Phone: [phone] Potassium 4.0 mmol/L Invalid Interpretation Code [facility] Work Phone: [phone] Sodium 135 mmol/L Low [facility] Work Phone: [phone] Urea nitrogen 17 mg/dL Invalid Interpretation Code [facility] Work Phone: [phone] Lab Report: Basic Metabolic Profile (BMP)on 09-02-2015 Creatinine 85.09 mL/min Invalid Interpretation Code [facility] Work Phone: [phone] eGFR (non-black) 119 mL/min/{1.73_m2} Invalid Interpretation Code >60 [facility] Work Phone: [phone] eGFR (non-black) 98 mL/min/{1.73_m2} Invalid Interpretation Code >60 [facility] Work Phone: [phone] EST GFR - AA 119 mL/min >60 [facility] Work Phone: [phone] Lab Report: CBC W/Diff, Auto matedon 09-02-2015 Absolute Neut 4.2 X10 3/UL Invalid Interpretation Code 2.0-7.7 [facility] Work Phone: [phone] Basophils/100 leukocytes 0.1 % Invalid Interpretation Code 0-1 [facility] Work Phone: [phone] Basophils/100 WBC (Bld) 0.1 % 0-1 [facility] Work Phone: [phone] Eosinophils/100 leukocytes 1.7 % Invalid Interpretation Code 0-5 [facility] Work Phone: [phone] Eosinophils/100 WBC (Bld) 1.7 % 0-5 [facility] Work Phone: 1) 0 Erythrocyte distribution width Ratio (RBC) 14.9 % High 11.6-14.6 [facility] Work Phone: 1) 0 Erythrocyte distribution width Ratio (RBC) 54.2 fL High 35.1-43.9 [facility] Work Phone: 1) 0 Erythrocytes (RBC) 3.38 10*6/uL Low 4.2-5.4 [facility] Work Phone: 1) 0 Immature granulocytes #/vol (Bld) 0.300 % 0.0-0.9 [facility] Work Phone: 1 0 immature granulocytes, percentage of total cells, blood 0.300 % Invalid Interpretation Code 0.0-0.9 [facility] Work Phone: 1) 0 Immature granulocytes/100 WBC (Bld) 0.300 % Invalid Interpretation Code 0.0-0.9 [facility] Work Phone: 1) 0 Lymphocytes 2.01 X10 3/UL Invalid Interpretation Code 0.83-4.51 [facility] Work Phone: 1) 0 Lymphocytes #/vol (Bld) 2.01 X10 3/UL 0.83-4.51 [facility] Work Phone: 1) 0 Lymphocytes/100 leukocytes 27.7 % Invalid Interpretation Code 19 [facility] Work Phone: 1() 0 Lymphocytes/100 WBC (Bld) 27.7 % - [facility] Work Phone: 1() 0 MCH 33.7 pg High 27.0-32.0 [facility] Work Phone: 1) 0 MCH Entitic mass (RBC) 33.7 pg High 27.0-32.0 [facility] Work Phone: 1) 0 MCHC 33.2 G/GL Invalid Interpretation Code 32-36 [facility] Work Phone: [phone] MCHC mass conc (RBC) 33.2 G/GL 32-36 [facility] Work Phone: [phone] MCV 101.5 fL High 81-99 [facility] Work Phone: 1() 0 MCV Entitic volume (RBC) 101.5 fL High 81-99 [facility] Work Phone: [phone] Monocytes/100 leukocytes 11.9 % High 0-10 [facility] Work Phone: 1() 0 Monocytes/100 WBC (Bld) 11.9 % High 0-10 [facility] Work Phone: 1() 0 neutrophil count, blood 4.2 X10 3/UL Invalid Interpretation Code 2.0-7.7 [facility] Work Phone: 1() 0 Neutrophils #/vol (Bld) 4.2 X10 3/UL 2.0-7.7 [facility] Work Phone: 1() 0 Neutrophils/100 leukocytes 58.3 % Invalid Interpretation Code 47-70 [facility] Work Phone: 1() 0 Neutrophils/100 WBC (Bld) 58.3 % 47-70 [facility] Work Phone: 1() 0 Platelet mean volume Entitic volume (Bld) 9.3 fL 6.2-12.0 [facility] Work Phone: 1() 0 PMV by Khadra 9.3 fL Invalid Interpretation Code 6.2-12.0 [facility] Work Phone: 1() 0 RBC #/vol (Bld) 3.38 10*6/uL Low 4.2-5.4 [facility] Work Phone: 1() 0 RDW SD 54.2 fL High 35.1-43.9 [facility] Work Phone: [phone] RDW-CA 14.9 % High 11.6-14.6 [facility] Work Phone: [phone] red blood cell distribution width, size density 54.2 fL High 35.1-43.9 [facility] Work Phone: [phone] WBC #/vol (Bld) 7.3 10*3/uL 4.4-11.0 [facility] Work Phone: [phone] WBC (Leukocytes) 7.3 10*3/uL Invalid Interpretation Code 4.4-11.0 [facility] Work Phone: [phone] Lab Report: Magnesiumon 07-0 Magnesium 1.7 mg/dL Low 1.8-2.4 [facility] Work Phone: [phone] Lab Report: Urinalysis, Rout ine (Dipstick)on 08-24-2015 Albumin Ql (U) 15 High Negative [facility] [place] [facility] Work Phone: [phone] Bilirubin Ql (U) Negative Invalid Interpretation Code Negative [facility] Work Phone: [phone] Ketones mass conc (U) Negative Negative [facility] Work Phone: [phone] NITRITE UR Negative Invalid Interpretation Code Negative [facility] Work Phone: [phone] Nitrite Urine Negative Invalid Interpretation Code Negative [facility] Work Phone: [phone] Occult Blood, urine 10 High Negative [facility] Work Phone: [phone] OCCULT BLOOD-UR 10 High Negative [facility] [place] [facility] Work Phone: [phone] pH (U) 6.0 [pH] 5.0 - 8.0 [facility] Work Phone: [phone] specific gravity, urine 1.020 Invalid Interpretation Code 1.002-1.03 0 [facility] Work Phone: [phone] Urine, bilirubin presence Negative Invali d Interpretation Code Negative [facility] Work Phone: [phone] Urine, clarity Clear Invalid Interpretation Code Clear [facility] Work Phone: [phone] Urine, color Yellow Invalid Interpretation Code Yellow [facility] Work Phone: [phone] Urine, glucose presence Normal mg/dl Invalid Interpretation Code Normal [facility] Work Phone: [phone] Urine, ketones presence Negative Invalid Interpretation Code Negative [facility] Work Phone: [phone] Urine, leukocyte esterase presence 25 High Negative [facility] Work Phone: [phone] Urine, pH 6.0 [pH] Invalid Interpretation Code 5.0 - 8.0 [facility] Work Phone: [phone] Urine, protein 15 mg/dL High Negative [facility] Work Phone: [phone] UROBILI Normal mg/dl Invalid Interpretation Code Normal [facility] Work Phone: [phone] urobilinogen, urine, by dipstick Normal mg/dl Invalid Interpretation Code Normal [facility] Work Phone: [phone] Lab Report: CBCDon 4 Absolute Neutrophil count 4.8 X10 3/UL Normal 2.0-7.7 [facility] Work Phone: [phone] ANC 4.8 X10 3/UL Normal 2.0-7.7 [facility] Work Phone: [phone] No Panel Information [facility] Vital Signs Date Time Vital Sign Value Performing Clinician Facility 06-04-2024 18:27-0400 Body temperature 98 [degF] Dr. Ruddy Corral MD Work Phone: [facility] 06-04-2024 18:27-0400 Diastolic blood pressure 79 mm[Hg] Dr. Ruddy Corral MD Work Phone: [facility] 06-04-2024 18:27-0400 Heart rate 98 /min Dr. Ruddy Corral MD Work Phone: [facility] 06-04-2024 18:27-0400 Respiratory rate 16 /min Dr. Ruddy Corral MD Work Phone: [facility] 06-04-2024 18:27-0400 SaO2% (BldA) [Mass fraction] 100 % Dr. Ruddy Corral MD Work Phone: [facility] 06-04-2024 18:27-0400 Systolic blood pressure 161 mm[Hg] Dr. Ruddy Corral MD Work Phone: [facility] 06-04-2024 15:58-0400 Body height 170.[address] Ruddy Corral MD Work Phone: [facility] 06-04-2024 15:58-0400 Body mass index (BMI) [Ratio] 34.8 kg/m2 Dr. Ruddy Corral MD Work Phone: [facility] 06-04-2024 15:58-0400 Body weight 100.[address] Ruddy Corral MD Work Phone: [facility] 07-03-2023 19:43-0400 Body temperature 98.4 [degF] [facility] 07-03-2023 19:43-0400 Diastolic blood pressure 60 mm[Hg] [facility] 07-03-2023 19:43-0400 Heart rate 72 /min [facility] 07-03-2023 19:43-0400 Respiratory rate 18 /min [facility] 07-03-2023 19:43-0400 SaO2% (BldA) [Mass fraction] 97 % [facility] 07-03-2023 19:43-0400 Systolic blood pressure 170 mm[Hg] [facility] 07-03-2023 14:36-0400 Body height 167.64 cm [facility] 07-03-2023 14:36-0400 Body mass index (BMI) [Ratio] 38.4 kg/m2 [facility] 07-03-2023 14:36-0400 Body weight 107.95 kg [facility] 09-19-2022 09:13-0400 Body height 167.[address] Ruddy Corral Work Phone: [phone] [place] [address] 09-19-2022 09:10-0400 Body mass index (BMI) [Ratio] 40.4 kg/m2 Dr. Ruddy Corral Work Phone: [phone] [place] [address] 09-19-2022 09:10-0400 Body weight 113.[address] Ruddy Corral Work Phone: [phone])078-859171 [place] [address] 09-19-2022 09:10-0400 Diastolic blood pressure 72 mm[Hg] Dr. Ruddy Corral Work Phone: [phone])[phone] [place] [address] 09-19-2022 09:10-0400 Heart rate 82 /min Dr. Ruddy Corral Work Phone: 2(793)892-593071 [place] [address] 09-19-2022 09:10-0400 Respiratory rate 18 /min Dr. Ruddy Corral Work Phone: 0([phone])439-967671 [place] [address] 09-19-2022 09:10-0400 SaO2% (BldA) [Mass fraction] 96 % Dr. Ruddy Corral Work Phone: 7(108)641-966271 [place] [address] 09-19-2022 09:10-0400 Systolic blood pressure 141 mm[Hg] Dr. Ruddy Corral Work Phone: 8(363)675-234671 [place] [address] 03-14-2022 13:56-0500 Body height 167.[address] Ruddy Corral Work Phone: 8(571)046-284071 [place] [address] 03-14-2022 13:56-0500 Body mass index (BMI) [Ratio] 40 kg/m2 Dr. Ruddy Corral Work Phone: 4(016)909-028471 [place] [address] 03-14-2022 13:56-0500 Body weight 112.[address] Ruddy Corral Work Phone: 3([phone] [place] [address] 03-14-2022 13:56-0500 Diastolic blood pressure 70 mm[Hg] Dr. Ruddy Corral Work Phone: [facility] 03-14-2022 13:56-0500 Heart rate 84 /min Dr. Ruddy Corral Work Phone: [facility] 03-14-2022 13:56-0500 Respiratory rate 18 /min Dr. Ruddy Corral Work Phone: [facility] 03-14-2022 13:56-0500 Systolic blood pressure 149 mm[Hg] Dr. Ruddy Corral Work Phone: [facility] 09-22-2021 11:54-0400 Body temperature 96.6 [degF] RUDDY-CHI ELLIS Work Phone: [facility] 09-22-2021 11:54-0400 Diastolic blood pressure 60 mm[Hg] RUDDY-CHI ELLIS Work Phone: [facility] 09-22-2021 11:54-0400 Heart rate 75 /min RUDDY-CHI ELLIS Work Phone: [facility] 09-22-2021 11:54-0400 SaO2% (BldA) [Mass fraction] 97 % RUDDY-CHI ELLIS Work Phone: [facility] 09-22-2021 11:54-0400 Systolic blood pressure 151 mm[Hg] RUDDY-CHI ELLIS Work Phone: [facility] 09-22-2021 10:50-0400 Respiratory rate 18 /min RUDDY-CHI ELLIS Work Phone: [facility] 09-22-2021 05:40-0400 Body weight 117.62 kg RUDDY-CHI ELLIS Work Phone: [facility] 09-17-2021 06:15-0400 SaO2% (BldA) [Mass fraction] 72.0 % RUDDY-CHI ELLIS Work Phone: [facility] 09-16-2021 18:09-0400 Body height 165.1 cm RUDDY-CHI ELLIS Work Phone: [facility] 08-31-2016 07:43-0400 BMI (Body Mass Index) 51.32 kg/m2 [facility] Work Phone: 08-31-2016 07:43-0400 BP Diastolic 72 mm[Hg] [facility] Work Phone: 08-31-2016 07:43-0400 BP Systolic 132 mm[Hg] [facility] Work Phone: 08-31-2016 07:43-0400 Height 152.4 cm [facility] Work Phone: 08-31-2016 07:43-0400 Pulse (Heart Rate) 92 /min [facility] enter [facility] Work Phone: 08-31-2016 07:43-0400 Respiratory Rate 20 /min [facility] Work Phone: 08-31-2016 07:43-0400 Weight 119.21 kg [facility] Work Phone: 02-29-2016 16:02-0500 Heart rate 92 /min Sanaz Lópezy [facility] Work Phone: 02-29-2016 15:39-0500 BMI (Body Mass Index) 54.29 kg/m2 [facility] Work Phone: 02-29-2016 15:39-0500 BP Diastolic 64 mm[Hg] [facility] Work Phone: 02-29-2016 15:39-0500 BP Systolic 144 mm[Hg] [facility] Work Phone: 02-29-2016 15:39-0500 BSA (Body Surface Area) 2.15 m2 [facility] Work Phone: 02-29-2016 15:39-0500 Pulse (Heart Rate) 84 /min [facility] Work Phone: 02-29-2016 15:39-0500 Respiratory Rate 20 /min [facility] Work Phone: 02-29-2016 15:39-0500 Weight 126.1 kg [facility] Work Phone: 09-02-2015 07:02-0400 Body surface area Derived from formula 85.09 mL/min Sanaz Vivas [facility] Work Phone: 01-03-2011 17:02-0500 Height 152.4 cm [facility] Work Phone: NEGATED: Highlighted [id number] 13:52-0500 Body height 170.18 cm Radha Laurence [employer] [facility] Work Phone: NEGATED: Highlighted [id number] 13:52-0500 Body height 170 cm Radha Laurence [facility] Work Phone: NEGATED: Highlighted [id number] 13:52-0500 Body mass index (BMI) [Ratio] 53.76 kg/m2 Radha Laurence [employer] [facility] Work Phone: NEGATED: Highlighted [id number] 13:52-0500 Body temperature 97.7 [degF] Radha Laurence [employer] [facility] Work Phone: NEGATED: Highlighted [id number] 13:52-0500 Body weight 155.13 kg Radha Laurence [employer] [facility] Work Phone: NEGATED: Highlighted [id number] 13:52-0500 Body weight 155 kg Radha Dang LPN [facility] Work Phone: Encounters Encounter Date Encounter Type Care Provider Facility Start: 10-20-2024 End: 10-20-[address] Ruddy Corral MD Work Phone: -Laboratory Phy Office 3rd Flr Start: 10-20-2024 End: 10-20-[address] Ruddy Corral MD -Laboratory Phy Office 3rd Flr Start: 10-20-2024 End: 10-20-2024 ambulatory [facility] Facility:[facility] Start: 09-22-[facility] Start: 09-22-[address] Montserrat James i, MD -Physical Therapy Work Phone: Start: 08-20-2024 End: 08-20-[address] Ruddy Corral MD Work Phone: -Cardiovascular Services Start: 08-20-2024 End: 08-20-[address] Ruddy Corral MD -Cardiovascular Services Work Phone: Start: 08-20-2024 End: 08-20-2024 ambulatory Ruddy Dinh Corral Facility:[facility] Start: 08-11-[address] Montserrat James i, MD -Physical Therapy Work Phone: Start: 07-01-2024 End: 07-01-[address] Ruddy Corral MD Work Phone: [facility] Work Phone: Start: 07-01-2024 End: 07-01-[address] Montserrat Welsh MD -Laboratory Work Phone: Start: 07-01-2024 End: 07-01-[facility] Start: 06-09-2024 End: 06-09-[address] Ruddy Corral MD Work Phone: [facility] Work Phone: Start: 06-09-2024 End: 06-09-[address] Ruddy Corral MD -Laboratory Work Phone: Start: 06-09-2024 End: 06-09-2024 ambulatory [facility] Facility:[facility] Start: 06-04-2024 End: 06-04-2024 Emergency department patient visit Dr. Ruddy Corral MD Work Phone: -Emergency Department Work Phone: Start: 05-21-2024 End: 05-21-[address] Ruddy Corral MD Work Phone: [facility] Work Phone: Start: 05-21-2024 End: 05-21-[address] Ruddy Corral MD -Laboratory, Specimen Work Phone: Start: 05-21-2024 End: 05-21-[address] Ruddy Corral MD Work Phone: [facility] Work Phone: Start: 05-21-2024 End: 05-21-[address] Ruddy Corral MD -Radiology, [facility] Work Phone: Start: 05-21-2024 End: 05-21-2024 ambulatory [facility] Facility:[facility] Start: 04-21-2024 End: 04-21-[address] Ruddy Corral MD Work Phone: [facility] Work Phone: Start: 04-21-2024 End: 04-21-[address] Ruddy Corral MD -Laboratory, Phy Office 3rd Flr Start: 04-21-2024 End: 04-21-2024 ambulatory [facility] Facility:[facility] Start: 04-10-2024 End: 04-10-[address] Ruddy Corral MD -Laboratory Work Phone: Start: 04-10-2024 End: 04-10-2024 ambulatory [facility]dy [facility] Facility:[facility] Start: 03-28-2024 End: 03-28-[address] Ruddy Corral MD -Laboratory, Phy Office 3rd Flr Start: 03-28-2024 End: 03-28-2024 ambulatory [facility] Facility:[facility] Start: 12-13-2023 End: 12-13-2023 ambulatory [facility] Facility:[facility] Start: 11-16-2023 ambulatory Ruddy [facility] Start: 11-14-2023 ambulatory [facility] Start: 11-14-2023 End: 11-14-2023 ambulatory [facility] Facility:[facility] Start: 10-30-2023 End: 10-31-2023 Emergency department patient visit [facility] Facility:[facility] Start: 07-03-2023 End: 07-03-2023 Emergency department patient visit [facility]-Emergency Department Work Phone: Start: 06-26-2023 End: 06-26-[address] [facility] Work Phone: Start: 06-26-2023 End: 06-26-2023 Patient encounter procedure [facility] Work Phone: Start: 06-13-2023 End: 06-13-[address] [facility] Work Phone: Start: 06-13-2023 End: 06-13-2023 Patient encounter procedure [facility]-Laboratory, Phy Office 3rd Flr Start: 06-12-2023 End: 06-12-2023 ambulatory KATHE CARABALLO Facility:[facility] Start: 06-12-2023 End: 06-12-2023 Patient encounter procedure Kathe Caraballo MD Work Phone: [facility] Comment on above: Bilateral pseudophak ia (Primary Dx); Exudative age-related macular degeneration, left eye, with active choroidal neovascularization (HCC); Nonexudative age-related macular degeneration, right eye, advanced atrophic without subfoveal involvement Start: 05-17-2023 End: 05-17-[address] [facility] Work Phone: Start: 05-17-2023 End: 05-17-2023 Patient encounter procedure [facility]-Pulmonary Services/Neurology Work Phone: Start: 04-24-2023 End: 04-24-2023 ambulatory ISHAN RAGLAND Facility:[facility] Start: 04-24-2023 End: 04-24-2023 Patient encounter procedure Ishan Ragland MD Work Phone: [facility] Comment on above: Exudative age-relate d macular degeneration, left eye, with active choroidal neovascularization (HCC); Nonexudative age-related macular degeneration, right eye, advanced atrophic without subfoveal involvement; Bilateral pseudophakia Start: 04-17-2023 Orders Only [facility] Comment on above: Exudative age-relate d macular degeneration, left eye, with active choroidal neovascularization (HCC) (Primary Dx); Nonexudative age-related macular degeneration, right eye, advanced atrophic without subfoveal involvement; Bilateral pseudophakia Start: 04-12-2023 End: 04-12-[address] [facility] Work Phone: Start: 04-12-2023 End: 04-12-2023 Patient encounter procedure [facility]-Laboratory, Phy Office 3rd Flr Start: 03-13-2023 End: 03-13-2023 ambulatory KATHE CARABALLO Facility:[facility] Start: 02-06-2023 End: 02-06-2023 ambulatory KATHE CARABALLO Facility:[facility] Start: 02-06-2023 End: 02-06-2023 Patient encounter procedure Kathe Caraballo MD Work Phone: [facility] Comment on above: Exudative age-relate d macular degeneration, left eye, with active choroidal neovascularization (HCC); Nonexudative age-related macular degeneration, right eye, advanced atrophic without subfoveal involvement Start: 01-02-2023 End: 01-02-2023 ambulatory KATHE CARABALLO Facility:[facility] Start: 12-08-2022 End: 12-08-[address] Ruddy Corral Work Phone: [facility] Work Phone: Start: 12-08-2022 End: 12-08-[address] Ruddy Corral Work Phone: [facility]-Radiology, [facility] Work Phone: Start: 11-28-2022 End: 11-28-2022 ambulatory PHOROIMEE ILYA Facility:[facility] Start: 11-21-2022 End: 11-21-[address] Ruddy Corral Work Phone: [facility] Work Phone: Start: 11-21-2022 End: 11-21-[address] Ruddy Corral Work Phone: [facility]-Outpatient Bone Densitometry Work Phone: Start: 10-17-2022 End: 10-17-2022 ambulatory PHOROMIEE ILYA Facility:[facility] Start: 10-17-2022 End: 10-17-2022 Patient encounter procedure Kathe Caraballo MD Work Phone: [facility] Comment on above: Exudative age-relate d macular degeneration, left eye, with active choroidal neovascularization (HCC); Nonexudative age-related macular degeneration, right eye, advanced atrophic without subfoveal involvement Start: 10-11-2022 End: 10-11-[address] Ruddy Corral Work Phone: [facility] Work Phone: Start: 10-11-2022 End: 10-11-[address] Ruddy Corral Work Phone: [facility]-Laboratory, Phy Office 3rd Flr Start: 09-19-2022 End: 09-19-[address] Ruddy Corral Work Phone: [facility] Work Phone: Start: 09-05-2022 End: 09-05-2022 ambulatory PHOROMIEE ILYA Facility:[facility] Start: 09-05-2022 End: 09-05-2022 Patient encounter procedure Phoromiee Ilya MD Work Phone: [facility] Comment on above: Bilateral pseudophak ia (Primary Dx); Exudative age-related macular degeneration, left eye, with active choroidal neovascularization (HCC); Nonexudative age-related macular degeneration, right eye, advanced atrophic without subfoveal involvement Start: 08-23-2022 Telephone encounter [facility] Work Phone: Neurology Comment on above: Patient Question Start: 08-01-2022 End: 08-01-2022 ambulatory KATHRYNANDRA CARABALLO Facility:[facility] Start: 08-01-2022 End: 08-01-2022 Patient encounter procedure Kathe Caraballo MD Work Phone: [facility] Comment on above: Bilateral pseudophak ia; Exudative age-related macular degeneration, left eye, with active choroidal neovascularization (HCC); Nonexudative age-related macular degeneration, right eye, advanced atrophic without subfoveal involvement Start: 06-27-2022 End: 06-27-2022 ambulatory KATHE CARABALLO Facility:[facility] Start: 06-27-2022 End: 06-27-2022 Patient encounter procedure Kathe Caraballo MD Work Phone: [facility] Comment on above: Exudative age-relate d macular degeneration, left eye, with active choroidal neovascularization (HCC); Nonexudative age-related macular degeneration, right eye, advanced atrophic without subfoveal involvement; Bilateral pseudophakia Start: 06-21-2022 Telephone encounter Mirlande Arias MD Work Phone: Neurology Comment on above: PAP Rx Faxed Start: 05-09-2022 End: 05-09-2022 Patient encounter procedure Kathe Caraballo MD Work Phone: [facility] Comment on above: Exudative age-relate d macular degeneration, left eye, with active choroidal neovascularization (HCC) (Primary Dx); Nonexudative age-related macular degeneration, right eye, advanced atrophic without subfoveal involvement; Bilateral pseudophakia Start: 04-20-2022 Orders Only Mirlande del angel MD Work Phone: Neurology Comment on above: Obstructive sleep ap nakita (Primary Dx) Start: 04-15-2022 Chart abstracting [facility] Main Work Phone: Neurology Start: 04-14-2022 End: 04-15-2022 ambulatory MIRLANDE ARIAS Facility:[facility] Start: 04-05-2022 End: 04-05-[address] Ruddy Corral Work Phone: [facility] Work Phone: Start: 04-05-2022 End: 04-05-[address] Ruddy Corral Work Phone: [facility]-Laboratory, Phy Office 3rd Flr Start: 03-24-2022 End: 03-24-[address] Ruddy Corral Work Phone: [facility] Start: 03-22-2022 End: 03-22-[address] Ruddy Corral Work Phone: [facility] Work Phone: Start: 03-22-2022 End: 03-22-[address] [facility] Start: 03-14-2022 End: 03-14-[address] Ruddy Corral Work Phone: [facility] Start: 03-02-2022 Orders Only Mirlande del angel MD Work Phone: Neurology Comment on above: Obstructive sleep ap nakita (Primary Dx) Start: 02-08-2022 Chart abstracting [facility] Main Work Phone: Neurology Start: 01-21-2022 End: 01-21-[address] 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 Work Phone: Start: 11-02-2021 End: 11-02-2021 Patient encounter procedure [facility]-Outpatient Breast Imaging Start: 09-16-2021 End: 09-22-2021 Evaluation and management of inpatient RUDDYShaylaDINH CORRAL Work Phone: [facility] Start: 07-12-2021 End: 07-12-2021 Patient encounter procedure [facility]-Laboratory Procedures Date Procedure Procedure Detail Performing Clinician Start: 10-20-2024 Urine microalbumin/creatinine ratio measurement Dr. Ruddy Corral MD Work Phone: Start: 10-20-2024 Vitamin D, 25-hydrox y measurement Dr. Ruddy Corral MD Work Phone: Comment on above: Vitamin D StatusDefi ciency: <20 ng/mL (50nmol/L)Insufficiency: 20-30 ng/mL (50-75 nmol/L)Sufficiency: 30-100 ng/mL (75-250 nmol/L)Toxicity: >100 ng/mL (>250 nmol/L) Start: 07-01-2024 Methadone measuremen t, urine Dr. Ruddy Corral MD Work Phone: Comment on above: If confirmation test ing is needed, a separate order will be required to send out testing to the reference laboratory. Start: 07-01-[address] Ruddy gonsalez MD Work Phone: Comment on above: Test Ordered: [id number] Screen, Urine Negative ng/mL UI Reference Range: Anuzrw=041Ltdoruyczjb test includes Amphetamine and Methamphetamine.Barbiturates Negative ng/mL UI Reference Range: Fzvoqc=294Nbhfznsmolwryvm Negative ng/mL UI Reference Range: Fhwqeb=372Bygcooj (Metab.), Urine Negative ng/mL UI Reference Range: Yzbbwi=005Yqdczrl Note: ng/mL UI See Final Results Reference Range: Ndrztt=788Qfvpma test includes Codeine, Morphine, Hydromorphone, Hydrocodone.Opiates Positive [A ] UI Reference Range: Cfszhz=655Iznqus test includes Codeine, Morphine, Hydromorphone, Hydrocodone.Codeine Negative UI Reference Range: Kvlswr=581Rjvwpufo Negative UI Reference Range: Ntftjh=601Gwfqlitjnujue Negative UI Reference Range: Rqxkpp=110Juupnrnvdci Positive [A ] UI Reference Range: .Hydrocodone Conf, MS, UR 452 ng/mL UI Reference Range: Nhqube=4584-Qicqszsamqmabr, Urine Negative ng/mL UI Reference Range: Cutoff=10Oxycodone/Oxymorphone, Urine Negative ng/mL UI Reference Range: Rwyvjl=400Svea includes Oxycodone and OxymorphonePCP, Urine Negative ng/mL UI Reference Range: Cutoff=25Methadone Screen, Urine Negative ng/mL UI Reference Range: Jxvlkj=651Llkwlmlyvkgv, Urine Negative ng/mL UI Reference Range: Vjadde=864Ufcmjpic, Urine Negative ng/mL UI Reference Range: Cutoff=2.0Test includes Fentanyl and NorfentanylThis test was developed and its performance characteristicsdetermined by [facility]. It has not been cleared orapproved by the Food and Drug Administration.Tramadol Negative ng/mL UI Reference Range: Bmsfqq=116Qlullyebyxhnt, Urine Negative ng/mL UI Reference Range: Cutoff=10Creatinine, Urine 84.1 mg/dL UI Reference Range: 20.0-300.0pH, Urine 5.3 UI Reference Range: 4.5-8.9Performed at: [facility] [id number] [place], [place] [id number] Director: Isha Elliott PhD, Phone: [phone] at: [address] [id number] Director: Darrell Pavon PhD, Phone: [phone] Start: 06-04-2024 Plain X-ray of shoulder Dr. Ruddy Corral MD Work Phone: Start: 05-21-2024 X-ray of chest, PA a nd lateral views Dr. Ruddy Corral MD Work Phone: Start: 05-21-2024 SARS-CoV-2, Influenz a & RSV (PCR) Dr. Ruddy Corral MD Work Phone: Start: 04-21-[address] Ruddy Corral MD Work Phone: Start: 04-21-2024 Urine microalbumin/creatinine ratio measurement Dr. Ruddy Corral MD Work Phone: Start: 04-21-2024 Measurement of renal function Dr. Ruddy Corral MD Work Phone: Comment on above: GFR Calc Start: 04-21-2024 Vitamin D, 25-hydrox y measurement Dr. Ruddy Corral MD Work Phone: Comment on above: Vitamin D 25(OH) Sta tus Range Deficiency <20 ng/mL (50nmol/L) Insufficiency 20 - 30 ng/mL (50 - 75 nmol/L) Sufficiency 30 - 100 ng/mL (75 - 250 nmol/L) Toxicity >100 ng/mL (>250 nmol/L) Start: 04-10-2024 Plain X-ray of shoulder Dr. Ruddy Corral MD Work Phone: Start: 04-10-2024 Measurement of renal function Dr. Ruddy Corral MD Work Phone: Comment on above: GFR Calc Start: 04-10-[address] Ruddy Corral MD Work Phone: Start: 04-10-2024 Urine microalbumin/creatinine ratio measurement Dr. Ruddy Corral MD Work Phone: Start: 04-10-2024 Urnls dip stick/tabl et reagent auto microscopy Dr. Ruddy Corral MD Work Phone: Start: 03-28-2024 SARS-CoV-2, Influenz a & RSV (PCR) Dr. Ruddy Corral MD Work Phone: Start: 07-03-2023 Plain chest X-ray Start: 06-26-2023 MRI of brain without contrast Start: 06-13-2023 Urine culture Start: 06-12-2023 Computerized ophthal huy imaging retina Kathe Caraballo MD Work Phone: Start: 05-17-2023 SARS-CoV-2, Influenz a & RSV (PCR) Start: 04-24-2023 Intravitreal njx pharmacologic agt spx Ishan Ragland MD Work Phone: Start: 04-24-2023 Computerized ophthal huy imaging retina Ishan Ragland MD Work Phone: Start: 02-06-2023 Intravitreal njx pharmacologic agt spx Kathe Caraballo MD Work Phone: Start: 02-06-2023 Computerized ophthal huy imaging retina Kathe Caraballo MD Work Phone: Start: 12-08-2022 Plain X-ray of shoulder Dr. Ruddy Corral Work Phone: Start: 11-21-2022 Screening mammography Axel Corral Work Phone: Start: 11-21-2022 Dual energy X-ray absorptiometry Dr. Ruddy Corral Work Phone: Start: 10-17-2022 Intravitreal njx pharmacologic agt spx Kathe Caraballo MD Work Phone: Start: 10-17-2022 Computerized ophthal huy imaging retina Kathe Caraballo MD Work Phone: Start: 09-05-2022 Intravitreal njx pharmacologic agt spx Kathe Caraballo MD Work Phone: Start: 09-05-2022 Computerized ophthal huy imaging ariadne Caraballo MD Work Phone: Start: 08-01-2022 Intravitreal njx pharmacologic agt spx Kathe Caraballo MD Work Phone: Start: 08-01-2022 Computerized ophthal huy imaging retina Kathe Caraballo MD Work Phone: Start: 06-27-2022 Intravitreal njx pharmacologic agt spx Kathe Caraballo MD Work Phone: Start: 06-27-2022 End: 06-27-2022 Computerized ophthalmic imaging retina Kathe Caraballo MD Work Phone: Start: 06-27-2022 OCT ANGIOGRAPHY OU ( BOTH EYES) Kathe Caraballo MD Work Phone: Start: 05-09-2022 Intravitreal njx pharmacologic agt spx Kathe Caraballo MD Work Phone: Start: 05-09-2022 Computerized ophthal huy imaging retina Kathe Caraballo MD Work Phone: Start: 03-24-2022 Plain x-ray of hand Dr. Ruddy Corral Work Phone: Start: 11-02-2021 Screening mammography Start: 09-19-2021 Contrast echocardiography DOMINIQUEDINH ELLIS Work Phone: Start: 09-18-2021 X-ray of chest anteroposterior view DOMINIQUEDINH ELLIS Work Phone: Start: 09-17-2021 X-ray of chest anteroposterior view RUDDY-DINH ELLIS Work Phone: Start: 09-16-2021 Plain chest X-ray BRENNAN VERO CORRAL Work Phone: Start: 04-19-2021 End: 04-19-2021 Belt strap sleev grmnt cover Leena Ramos MD Work Phone: Start: 04-19-2021 End: 04-19-2021 BP scrn no perf at interval Leena Ramos MD Work Phone: Start: 04-19-2021 End: 04-19-2021 Calc BMI out nrm mena nof/u Leena Ramos MD Work Phone: Start: 04-19-2021 End: 04-19-2021 Current tobacco non-user cad cap copd pv dm Leena Ramos MD Work Phone: Start: 04-19-2021 End: 04-19-2021 Docrev cur meds by arlene Ramos MD Work Phone: Start: 04-19-2021 End: 04-19-2021 Osteoarthritis symptoms&funcjal status asses Leena Ramos MD Work Phone: Start: 04-19-2021 End: 04-19-2021 Pain neg no plan Leena Ramos MD Work Phone: Start: 04-19-2021 End: 04-19-2021 Patient encounter procedure Leena Ramos MD Work Phone: Start: 08-31-2016 End: 08-31-2016 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 Zabala [employer]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 [employer]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 Work Phone: Start: 08-31-2016 End: 08-31-2016 Follow Up Appt 6 months Naman Zabala [employer]EIGN [employer] TEACHER Work Phone: Start: 08-31-2016 End: 08-31-2016 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 Naman Zabala [employer] TEACHER Work Phone: Start: 08-31-2016 End: 08-31-2016 Follow Up Appt 6 months Naman Zabala [employer] TEACHER Work Phone: Start: 07-14-2016 End: 09-01-2016 Mri any jt upper extremity w/contrast matrl Jesse Lemus Work Phone: Start: 07-14-2016 End: 09-01-2016 Mri joint upr extrem w/dye Jesse Lemus Work Phone: Start: 05-25-2016 End: 06-07-2016 Arthrocentesis aspir&/inj major jt/bursa w/o us Jesse Lemus Work Phone: Start: 05-25-2016 End: 09-01-2016 Radiologic exam knee complete 4/more views Jesse Lemus Work Phone: Start: 05-25-2016 End: 06-07-2016 Drain/inject, joint/bursa Jesse Lemus Work Phone: Start: 05-25-2016 End: 09-01-2016 X-ray exam, knee, 4 or more Jesse Lemus Work Phone: Start: 04-19-2016 End: 04-19-2017 Physical Therapy General Jesse Lemus Work Phone: Start: 04-19-2016 End: 04-19-2017 Physical Therapy General Jesse Lemus Work Phone: Start: 04-10-2016 End: 09-01-2016 Radex shoulder complete minimum 2 views Jesse Lemus Work Phone: Start: 04-10-2016 End: 09-01-2016 X-ray exam of shoulder Jesse Lemus Work Phone: Start: 02-29-2016 End: 02-29-2016 Ecg routine ecg w/least 12 lds w/i&r Tulio Licea MD Start: 02-29-2016 End: 02-29-2016 Echocardiography Tulio Licea MD Start: 02-29-2016 End: 02-29-2016 Echocardiography Tulio Licea MD Start: 02-29-2016 End: 02-29-2016 Electrocardiogram, complete Tulio Licea MD Start: 02-17-2016 Preoperative cardiovascular examination Pre-op cardiovascular exam Sanaz Vivas Start: 02-02-2016 End: 03-23-2016 Mri any jt upper extremity w/o contrast matrl Jesse Lemus Work Phone: Start: 02-02-2016 End: 03-23-2016 Mri joint upr extrem w/o dye Jesse Lemus Work Phone: Start: 11-10-2015 End: 11-09-2016 Physical Therapy General Jesse Lemus Work Phone: Start: 11-10-2015 End: 11-09-2016 Physical Therapy General Jesse Lemus Work Phone: Start: 09-16-2015 End: 01-05-2016 Radex shoulder complete minimum 2 views Jesse Lemus Work Phone: Start: 09-16-2015 End: 01-05-2016 X-ray exam of shoulder Jesse Lemus Work Phone: Start: 08-24-2015 End: 08-24-2015 Urinalysis Sanaz Vivas Start: 07-28-2015 End: 08-25-2015 Mri any jt upper extremity w/o contrast matrl Jesse Lemus Work Phone: Start: 07-28-2015 End: 08-25-2015 Mri joint upr extrem w/o dye Jesse Lemus Work Phone: Start: 07-08-2015 End: 08-25-2015 Radex shoulder complete minimum 2 views Jesse Lemus Work Phone: Start: 07-08-2015 End: 08-25-2015 X-ray exam of shoulder Jesse Lemus Work Phone: Start: 04-02-2015 End: 05-12-2015 Mri any jt upper extremity w/o contrast katelinl Jesse Lemus Work Phone: Start: 04-02-2015 End: 05-12-2015 Radex shoulder complete minimum 2 views Jesse Lemus Work Phone: Start: 04-02-2015 End: 05-12-2015 Mri joint upr extrem w/o dye Jesse Lemus Work Phone: Start: 04-02-2015 End: 05-12-2015 X-ray exam of shoulder Jesse Lemus Work Phone: Start: 12-16-2014 End: 12-27-2014 Arthrocentesis aspir&/inj major jt/bursa w/o us Jesse Lemus Work Phone: Start: 12-16-2014 End: 05-12-2015 Radiologic exam knee complete 4/more views Jesse Lemus Work Phone: Start: 12-16-2014 End: 12-27-2014 Drain/inject, joint/bursa Jesse Lemus Work Phone: Start: 12-16-2014 End: 05-12-2015 X-ray exam, knee, 4 or more Jesse Lemus Work Phone: Start: 09-17-2014 End: 09-24-2014 Arthrocentesis aspir&/inj major jt/bursa w/o us Jesse Lemus Work Phone: Start: 09-17-2014 End: 05-12-2015 Radex shoulder complete minimum 2 views Jesse Lemus Work Phone: Start: 09-17-2014 End: 09-24-2014 Drain/inject, joint/bursa Jesse Lemus Work Phone: Start: 09-17-2014 End: 05-12-2015 X-ray exam of shoulder Jesse Lemus Work Phone: Start: 03-20-2014 End: 05-12-2015 Radiologic exam knee complete 4/more views Jesse Lemus Work Phone: Start: 03-20-2014 End: 05-12-2015 X-ray exam, knee, 4 or more Jesse Lemus Work Phone: Start: 01-26-2014 End: 05-12-2015 *CBC Jesse Lemus Work Phone: Start: 01-26-2014 End: 01-26-2014 aPTT in Platelet poor plasma by Coagulation assay Jesse Lemus Work Phone: Start: 01-26-2014 End: 01-26-2014 INR in Platelet poor plasma by Coagulation assay Jesse Lemus Work Phone: Start: 01-26-2014 End: 05-12-2015 *CBC Jesse Lemus Work Phone: Start: 01-26-2014 End: 01-26-2014 aPTT Jesse Lemus Work Phone: Start: 01-26-2014 End: 01-26-2014 INR in Platelet poor plasma by Coagulation assay Jesse Lemus Work Phone: Start: 12-16-2013 End: 05-12-2015 Radiologic exam knee complete 4/more views Amanda Hammond Work Phone: Start: 12-16-2013 End: 05-12-2015 X-ray exam of hip Amanda Hammond Work Phone: Start: 12-16-2013 End: 05-12-2015 X-ray exam of hip Amanda Grovejeannie Work Phone: Start: 12-16-2013 End: 05-12-2015 X-ray exam, knee, 4 or more Amanda Grovejeannie Work Phone: Start: 02-16-2009 Mammography Mirlande Cordova MD Work Phone: Start: 03-16-2008 Colonoscopy Mirlande Cordova MD Work Phone: NEGATED: Highlighted rowStart: 04-19-2021 End: 04-19-2021 Documentation of current medications Radha Dang LPN Plan of Treatment Date Care Activity Detail Author Start: 12-02-2024 Urine microalbumin profile DTaP,Tdap,Td Vaccine (4 - Td or Tdap) [facility] Start: 06-26-2024 End: 12-03-2024 OCT MACULA CIRRUS OU (BOTH EYES) OCT MACULA CIRRUS OU (BOTH EYES) OPHT Imaging Routine Exudative age-related macular degeneration, left eye, with active choroidal neovascularization (HCC) Nonexudative age-related macular degeneration, right eye, advanced atrophic without subfoveal involvement Expected: 06/26/2024, Expires: 12/03/2024 [facility] Work Phone: Comment on above: Expected: 06/26/2024, Expires: Start: 06-11-2024 Glaucoma screening Dilated Retinal Exam [facility] Start: 06-04-[address] [facility] Start: 05-08-2024 End: 10-15-2024 OCT MACULA CIRRUS OU (BOTH EYES) OCT MACULA CIRRUS OU (BOTH EYES) OPHT Imaging Routine Exudative age-related macular degeneration, left eye, with active choroidal neovascularization (HCC) Expected: 05/08/2024, Expires: 10/15/2024 [facility] Work Phone: Comment on above: Expected: 05/08/2024, Expires: Start: 03-13-2024 Glaucoma screening Dilated Retinal Exam [facility] Start: 02-21-2024 End: 07-30-2024 OCT MACULA CIRRUS OU (BOTH EYES) OCT MACULA CIRRUS OU (BOTH EYES) OPHT Imaging Routine Exudative age-related macular degeneration, left eye, with active choroidal neovascularization (HCC) Nonexudative age-related macular degeneration, right eye, advanced atrophic without subfoveal involvement Expected: 02/21/2024, Expires: 07/30/2024 [facility] Work Phone: Comment on above: Expected: 02/21/2024, Expires: Start: 02-07-2024 Glaucoma screening Dilated Retinal Exam [facility] Start: 11-01-2023 End: 04-09-2024 OCT MACULA CIRRUS OU (BOTH EYES) OCT MACULA CIRRUS OU (BOTH EYES) OPHT Imaging Routine Exudative age-related macular degeneration, left eye, with active choroidal neovascularization (HCC) Nonexudative age-related macular degeneration, right eye, advanced atrophic without subfoveal involvement Expected: 11/01/2023, Expires: 04/09/2024 [facility] Work Phone: Comment on above: Expected: 11/01/2023, Expires: Start: 10-18-2023 Hepatitis C antibody, confirmatory test DILATED RETINAL EXAM [facility] Start: 09-20-2023 End: 02-27-2024 OCT MACULA CIRRUS OU (BOTH EYES) OCT MACULA CIRRUS OU (BOTH EYES) OPHT Imaging Routine Exudative age-related macular degeneration, left eye, with active choroidal neovascularization (HCC) Nonexudative age-related macular degeneration, right eye, advanced atrophic without subfoveal involvement Expected: 09/20/2023, Expires: 02/27/2024 [facility] Work Phone: Comment on above: Expected: 09/20/2023, Expires: Start: 09-06-2023 Hepatitis C antibody, confirmatory test DILATED RETINAL EXAM [facility] Start: 08-16-2023 End: 01-23-2024 OCT MACULA CIRRUS OU (BOTH EYES) OCT MACULA CIRRUS OU (BOTH EYES) OPHT Imaging Routine Exudative age-related macular degeneration, left eye, with active choroidal neovascularization (HCC) Nonexudative age-related macular degeneration, right eye, advanced atrophic without subfoveal involvement Expected: 08/16/2023, Expires: 01/23/2024 [facility] Work Phone: Comment on above: Expected: 08/16/2023, Expires: 4 Start: 08-02-2023 Hepatitis C antibody, confirmatory test DILATED RETINAL EXAM [facility] Start: 07-12-2023 End: 12-19-2023 OCT MACULA CIRRUS OU (BOTH EYES) OCT MACULA CIRRUS OU (BOTH EYES) OPHT Imaging Routine Exudative age-related macular degeneration, left eye, with active choroidal neovascularization (HCC) Nonexudative age-related macular degeneration, right eye, advanced atrophic without subfoveal involvement Bilateral pseudophakia Expected: 07/12/2023, Expires: 12/19/2023 [facility] Work Phone: Comment on above: Expected: 07/12/2023, Expires: Start: 07-03-[address] [facility] Start: 07-03-[address] [facility] Start: 06-28-2023 Hepatitis C antibody, confirmatory test DILATED RETINAL EXAM [facility] Start: 05-24-2023 End: 10-31-2023 Camera fundoscopy FUNDUS PHOTOS OU (BOTH EYES) OPHT Imaging Routine Exudative age-related macular degeneration, left eye, with active choroidal neovascularization (HCC) Nonexudative age-related macular degeneration, right eye, advanced atrophic without subfoveal involvement Bilateral pseudophakia Expected: 05/24/2023, Expires: 10/31/2023 [facility] Work Phone: Comment on above: Expected: 05/24/2023, Expires: Start: 05-24-2023 End: 10-31-2023 FUNDUS AUTOFLUORESCENCE PHOTO (FAF) OU (BOTH EYES) FUNDUS AUTOFLUORESCENCE PHOTO (FAF) OU (BOTH EYES) OPHT Imaging Routine Exudative age-related macular degeneration, left eye, with active choroidal neovascularization (HCC) Nonexudative age-related macular degeneration, right eye, advanced atrophic without subfoveal involvement Bilateral pseudophakia Expected: 05/24/2023, Expires: 10/31/2023 [facility] Work Phone: Comment on above: Expected: 05/24/2023, Expires: Start: 05-24-2023 End: 10-31-2023 OCT ANGIOGRAPHY OU (BOTH EYES) OCT ANGIOGRAPHY OU (BOTH EYES) OPHT Imaging Routine Exudative age-related macular degeneration, left eye, with active choroidal neovascularization (HCC) Nonexudative age-related macular degeneration, right eye, advanced atrophic without subfoveal involvement Bilateral pseudophakia Expected: 05/24/2023, Expires: 10/31/2023 [facility] Work Phone: Comment on above: Expected: 05/24/2023, Expires: Start: 05-24-2023 End: 10-31-2023 OCT MACULA CIRRUS OU (BOTH EYES) OCT MACULA CIRRUS OU (BOTH EYES) OPHT Imaging Routine Exudative age-related macular degeneration, left eye, with active choroidal neovascularization (HCC) Nonexudative age-related macular degeneration, right eye, advanced atrophic without subfoveal involvement Bilateral pseudophakia Expected: 05/24/2023, Expires: 10/31/2023 [facility] Work Phone: Comment on above: Expected: 05/24/2023, Expires: Start: 05-10-2023 Hepatitis C antibody, confirmatory test DILATED RETINAL EXAM [facility] Start: 02-26-2023 Advance Directive Discussion Advance Directive Discussion [facility] Start: 02-26-2023 Behavioral Health Screening Behavioral Health Screening [facility] Start: 02-26-2023 Depression Assessment Depression Assessment [facility] Start: 02-10-2023 COVID-19 VACCINE (5 - Pfizer series) COVID-19 VACCINE (5 - Pfizer series) [facility] Start: 10-27-2022 Influenza vaccination [facility] Start: 02-26-2022 ADVANCE DIRECTIVE DISCUSSION ADVANCE DIRECTIVE DISCUSSION [facility] Start: 02-26-2022 DEPRESSION ASSESSMENT DEPRESSION ASSESSMENT [facility] Start: 10-27-2021 Influenza vaccination INFLUENZA (#1) [facility] Start: 09-20-2021 Consultation [facility] Work Phone: Start: 09-18-2021 [facility] Work Phone: Start: 09-17-2021 [facility] Work Phone: Start: 09-16-2021 Hospital admission, emergency, from emergency room [facility] Work Phone: Start: 09-16-2021 Resuscitation [facility] Work Phone: Start: 09-16-2021 Electrocardiographic procedure EKG [facility] Start: 04-19-2021 End: 04-19-2021 Patient encounter procedure Appointment [facility] Work Phone: Start: 02-26-2021 ADVANCE DIRECTIVE DISCUSSION ADVANCE DIRECTIVE DISCUSSION [facility] Start: 02-26-2021 DEPRESSION ASSESSMENT DEPRESSION ASSESSMENT [facility] Start: 09-24-2020 Pneumococcal Vaccine: 65+ (2 - PCV) Pneumococcal Vaccine: 65+ (2 - PCV) [facility] Start: 09-24-2020 Pneumococcal Vaccine: 65+ (2 of 2 - PCV) Pneumococcal Vaccine: 65+ (2 of 2 - PCV) [facility] Start: 06-08-2019 Urine microalbumin profile DTAP,TDAP,TD (2 - Td or Tdap) [facility] Start: 2018 BONE DENSITY BONE DENSITY [facility] Start: 2018 Screening for osteoporosis Bone Density Screening [facility] Start: 12-16-2017 DIABETES SCREEN DIABETES SCREEN [facility] Start: 03-13-2017 End: 03-13-2017 Appointment Appointment [facility] Work Phone: Start: 12-07-2016 End: 12-07-2016 Appointment Appointment [facility] Work Phone: Start: 10-25-2016 End: 10-25-2016 Physical Therapy General Physical Therapy [facility], [address] [place] [address], [id number] [facility] Work Phone: Start: 10-25-2016 End: 10-25-2016 Physical Therapy General Physical Therapy [facility], [address] [place] [address], [id number] [facility] Work Phone: Start: 10-18-2016 End: 10-18-2016 Physical Therapy General Physical Therapy [facility], [address] [place] [address], [id number] [facility] Work Phone: Start: 10-18-2016 End: 10-18-2016 Physical Therapy General Physical Therapy [facility], [address] [place] [address], [id number] [facility] Work Phone: Start: 10-11-2016 End: 10-11-2016 Appointment Appointment [facility] Work Phone: Start: 10-11-2016 End: 10-11-2016 Appointment Appointment [facility] Work Phone: Start: 09-13-2016 End: 09-13-2016 Appointment Appointment [facility] Work Phone: Start: 09-05-2016 End: 09-05-2016 Appointment Appointment [facility] Work Phone: Start: 08-31-2016 End: 08-31-2016 Appointment Appointment [facility] Work Phone: Start: 08-31-2016 End: 08-31-2016 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 [facility] Work Phone: Start: 08-31-2016 End: 08-31-2016 Follow Up Appt 6 months Follow Up Appt 6 months [facility] Work Phone: Start: 08-31-2016 End: 08-31-2016 Appointment Appointment [facility] Work Phone: Start: 08-31-2016 End: 08-31-2016 Appointment Appointment [facility] Work Phone: Start: 08-31-2016 End: 08-31-2016 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 [facility] Work Phone: Start: 08-31-2016 End: 08-31-2016 Follow Up Appt 6 months Follow Up Appt 6 months [facility] Work Phone: Start: 08-09-2016 End: 08-09-2016 Appointment Appointment [facility] Work Phone: Start: 07-14-2016 End: 09-01-2016 Mri any jt upper extremity w/contrast matrl MRI upper extremity, any joint with contrast [facility] Work Phone: Start: 07-14-2016 End: 09-01-2016 Mri joint upr extrem w/dye MRI upper extremity, any joint with contrast [facility] Work Phone: Start: 05-25-2016 End: 09-01-2016 Radiologic exam knee complete 4/more views X-Ray, Knee [facility] Work Phone: Start: 05-25-2016 End: 09-01-2016 X-ray exam, knee, 4 or more X-Ray, Knee [facility] Work Phone: Start: 04-19-2016 End: 04-19-2016 Physical Therapy General Physical Therapy [facility], [address] [place] [address], [id number] [facility] Work Phone: Start: 04-19-2016 End: 04-19-2016 Physical Therapy General Physical Therapy [facility], [address] [place] [address], [id number] [facility] Work Phone: Start: 04-10-2016 End: 09-01-2016 Radex shoulder complete minimum 2 views X-Ray, Shoulder [facility] Work Phone: Start: 04-10-2016 End: 09-01-2016 X-ray exam of shoulder X-Ray, Shoulder [facility] Work Phone: Start: 02-29-2016 End: 02-29-2016 Ecg routine ecg w/least 12 lds w/i&r EKG (In office) [facility] Work Phone: Start: 02-29-2016 End: 02-29-2016 Echocardiography Echocardiogram (complete) [facility] counts include 234 beds at the [facility] Work Phone: Start: 02-29-2016 End: 02-29-2016 Echocardiography Echocardiogram (complete) [facility] counts include 234 beds at the [facility] Work Phone: Start: 02-29-2016 End: 02-29-2016 Electrocardiogram, complete EKG (In office) [facility] Work Phone: Start: 02-02-2016 End: 03-23-2016 Mri any jt upper extremity w/o contrast matrl MRI Joint Upper Extremity [facility] Work Phone: Start: 02-02-2016 End: 03-23-2016 Mri joint upr extrem w/o dye MRI Joint Upper Extremity [facility] Work Phone: Start: 11-10-2015 End: 11-10-2015 Physical Therapy General Physical Therapy [facility], [address] [place] [address], [id number] [facility] Work Phone: Start: 11-10-2015 End: 11-10-2015 Physical Therapy General Physical Therapy [facility], [address] [place] [address], [id number] [facility] Work Phone: Start: 09-16-2015 End: 01-05-2016 Radex shoulder complete minimum 2 views X-Ray, Shoulder [facility] Work Phone: Start: 09-16-2015 End: 01-05-2016 X-ray exam of shoulder X-Ray, Shoulder [facility] Work Phone: Start: 07-28-2015 End: 08-25-2015 Mri any jt upper extremity w/o contrast matrl MRI Joint Upper Extremity [facility] Work Phone: Start: 07-28-2015 End: 08-25-2015 Mri joint upr extrem w/o dye MRI Joint Upper Extremity [facility] Work Phone: Start: 07-08-2015 End: 08-25-2015 Radex shoulder complete minimum 2 views X-Ray, Shoulder [facility] Work Phone: Start: 07-08-2015 End: 08-25-2015 X-ray exam of shoulder X-Ray, Shoulder [facility] Work Phone: Start: 04-02-2015 End: 05-12-2015 Mri any jt upper extremity w/o contrast matrl MRI Joint Upper Extremity [facility] Work Phone: Start: 04-02-2015 End: 05-12-2015 Radex shoulder complete minimum 2 views X-Ray, Shoulder [facility] Work Phone: Start: 04-02-2015 End: 05-12-2015 Mri joint upr extrem w/o dye MRI Joint Upper Extremity [facility] Work Phone: Start: 04-02-2015 End: 05-12-2015 X-ray exam of shoulder X-Ray, Shoulder [facility] Work Phone: Start: 12-16-2014 End: 05-12-2015 Radiologic exam knee complete 4/more views X-Ray, Knee [facility] Work Phone: Start: 12-16-2014 End: 05-12-2015 X-ray exam, knee, 4 or more X-Ray, Knee [facility] Work Phone: Start: 09-17-2014 End: 05-12-2015 Radex shoulder complete minimum 2 views X-Ray, Shoulder [facility] Work Phone: Start: 09-17-2014 End: 05-12-2015 X-ray exam of shoulder X-Ray, Shoulder [facility] Work Phone: Start: 03-20-2014 End: 05-12-2015 Radiologic exam knee complete 4/more views X-Ray, Knee [facility] Work Phone: Start: 03-20-2014 End: 05-12-2015 X-ray exam, knee, 4 or more X-Ray, Knee [facility] Work Phone: Start: 01-26-2014 End: 05-12-2015 *CBC *CBC [facility] Work Phone: Start: 01-26-2014 End: 01-26-2014 aPTT *PTT-Partial Thromboplastin Time [facility] Work Phone: Start: 01-26-2014 End: 01-26-2014 INR Coag RelTime (PPP) *PT/INR [facility] Work Phone: Start: 01-26-2014 End: 05-12-2015 *CBC *CBC [facility] Work Phone: Start: 01-26-2014 End: 01-26-2014 aPTT *PTT-Partial Thromboplastin Time [facility] Work Phone: Start: 01-26-2014 End: 01-26-2014 aPTT Coag time (PPP) *PTT-Partial Thromboplastin Time [facility] Work Phone: Start: 01-26-2014 End: 01-26-2014 Coagulation factor induced.INR assay in platelet poor plasma *PT/INR [facility] Work Phone: Start: 12-16-2013 End: 05-12-2015 Radiologic exam knee complete 4/more views X-Ray, Knee [facility] Work Phone: Start: 12-16-2013 End: 05-12-2015 X-ray exam of hip X-Ray, Hip Unilateral [facility] Work Phone: Start: 12-16-2013 End: 05-12-2015 X-ray exam of hip X-Ray, Hip Unilateral [facility] Work Phone: Start: 12-16-2013 End: 05-12-2015 X-ray exam, knee, 4 or more X-Ray, Knee [facility] Work Phone: Start: 2013 RSV Vaccine (1 - 1-dose 60+ series) RSV Vaccine (1 - 1-dose 60+ series) [facility] Start: 02-16-2010 Mammography MAMMOGRAM [facility] Start: 02-16-2010 Screening for malignant neoplasm of breast Mammogram Screening [facility] Start: 03-16-2009 Colonoscopy COLONOSCOPY [facility] Start: 03-16-2009 COLORECTAL CANCER SCREENING COLORECTAL CANCER SCREENING [facility] Start: 03-16-2009 Screening for malignant neoplasm of colon [facility] Start: 11-21-2003 SHINGRIX VACCINE (1 of 2) SHINGRIX VACCINE (1 of 2) [facility] Start: 1998 COLOGUARD (FIT-DNA) COLOGUARD (FIT-DNA) [facility] Start: [address] COLONOGRAPHY [facility] Start: 1998 FECAL OCCULT BLOOD FECAL OCCULT BLOOD [facility] Start: 1998 LIPID SCREEN LIPID SCREEN [facility] Start: 1998 Screening for malignant neoplasm of colon [facility] Start: 1998 SIGMOIDOSCOPY SIGMOIDOSCOPY [facility] Start: 11-21-1983 Zoledronic acid therapy ALPHA-1 ANTITRYPSIN DEFICIENCY SCREENING [facility] Start: 11-21-1971 ANNUAL PCP TEAM CHRONIC DISEASE VISIT ANNUAL PCP TEAM CHRONIC DISEASE VISIT [facility] Start: 11-21-1971 Hepatitis B surface antibody level LDL CHOLESTEROL [facility] Start: 11-21-1971 HEPATITIS C SCREENING HEPATITIS C SCREENING [facility] Start: 11-21-1971 Hepatitis C screening Hepatitis C Screening [facility] Start: 11-21-1971 SPIROMETRY SPIROMETRY [facility] Start: 11-21-1963 3 comp foot exam completed DIABETIC FOOT EXAM [facility] Start: 11-21-1963 Diabetic foot examination Diabetic Foot Exam [facility] Start: 11-21-1963 Hepatitis B screening URINE ALBUMIN:CREATININE RATIO [facility] Start: 11-21-1959 PNEUMOCOCCAL: 65+ (1 - PCV) PNEUMOCOCCAL: 65+ (1 - PCV) [facility] Start: 1958 Hemoglobin A1c measurement HbA1C [facility] Start: 1958 Hemoglobin A1c/Hemoglobin.total in Blood HBA1C [facility] Start: 05-20-1954 COVID-19 VACCINE (#1) COVID-19 VACCINE (#1) [facility] EYLEA (AFLIBERCEPT) 2MG INTRAVITREAL INJECTION OS (LEFT EYE) EYLEA (AFLIBERCEPT) 2MG INTRAVITREAL INJECTION OS (LEFT EYE) Ophthalmology Routine Exudative age-related macular degeneration, left eye, with active choroidal neovascularization (HCC) Nonexudative age-related macular degeneration, right eye, advanced atrophic without subfoveal involvement Ordered: 06/12/2023 [facility] Work Phone: Comment on above: Ordered: 06/12/2023 Magn[facility] Work Phone: End: 10-08-2024 OCT MACULA CIRRUS OU (BOTH EYES) OCT MACULA CIRRUS OU (BOTH EYES) OPHT Imaging Routine Exudative age-related macular degeneration, left eye, with active choroidal neovascularization (HCC) Nonexudative age-related macular degeneration, right eye, advanced atrophic without subfoveal involvement Bilateral pseudophakia 1 Occurrences starting 04/17/2023 until 10/08/2024 [facility] Work Phone: Comment on above: 1 Occurrences starting 04/17/2023 until 10/08/2024 Patient Education [facility] Work Phone: Patient referral [facility] Work Phone: End: 03-02-2023 Polysomnogram POLYSOMNOGRAM (PSG) Procedures Routine Obstructive sleep apnea 1 Occurrences starting 03/02/2022 until 03/02/2023 [facility] Work Phone: Comment on above: 1 Occurrences starting 03/02/2022 until 03/02/2023 Vancomycin [Mass/vol ume] in Serum or Plasma --trough [facility] Work Phone: [facility] Immunizations Immunization Date Immunization Notes Care Provider Magui jacobson 11-26-2016 Influenza virus vaccine [facility] 11-17-2015 Influenza virus vaccine [facility] 12-02-2014 tetanus and diphther ia toxoids, adsorbed, preservative free, for adult use (2 Lf of tetanus toxoid and 2 Lf of diphtheria toxoid) [facility] 11-26-2013 Influenza virus vaccine [facility] 11-19-2012 Influenza virus vaccine [facility] 11-19-2012 Pneumococcal Vaccine [facility] Work Phone: 11-19-2012 pneumococcal vaccine , unspecified formulation [facility] 06-07-2009 tetanus toxoid, redu ba diphtheria toxoid, and acellular pertussis vaccine, adsorbed Mirlande Arias MD Work Phone: [facility] Work Phone: Payers Date Payer Category Payer Self-pay [id number] 2023 Medicare [id number] 2022 Medicare [id number] 2012 Unknown [id number] 2010 Medicare [id number] 2010 Medicare [id number] 2006 Unknown [id number] Unknown [id number] 2.16.8 [id number] Unknown [id number] 2.16.8 [id number] Unknown [id number] 2.16.8 [id number] Unknown [id number] 2.16.8 [id number] Unknown [id number] 2.16.8 [id number] Unknown [id number] 2.16.8 [id number] Unknown [id number] 2.16.8 [id number] Unknown [id number] 2.16.8 [id number] Unknown [id number] 2.16.8 [id number] Unknown [id number] 2.16.8 [id number] Unknown [id number] 2.16.8 [id number] Unknown [id number] 2.16.8 [id number] Unknown [id number] 2.16.8 [id number] Unknown [id number] 2.16.8 [id number] Unknown [id number] 2.16.8 [id number] Unknown [id number] 2.16.8 [id number] Social History Date Type Detail Facility Start: 03-08-2021 End: 07-03-2023 Assertion Unknown if ever smoked [facility] Work Phone: Start: 09-16-2021 End: 06-04-2024 Tobacco smoking status NHIS Never smoked tobacco (finding) [facility] Start: 09-20-2021 Never [facility] Start: 09-16-2021 No [facility] Start: 1955 Sex Assigned At Female [facility] Start: 06-24-2020 Occasional [facility] Start: 06-24-2020 None [facility] Start: 06-24-2020 Alone [facility] Start: 06-24-2020 Secondhand [facility] Start: 01-06-2013 End: 09-05-2022 Tobacco use and exposure Smokeless tobacco non-user [facility] Work Phone: Start: 12-13-2021 End: 06-12-2023 Alcohol intake Current non-drinker of alcohol (finding) [facility] Start: 01-06-2013 End: 09-05-2022 Tobacco Comment Father smoked in childhood home. Spouse smoked about 6 years. Workplace ETS exposure. [facility] Start: 02-11-2008 [facility] Start: 1955 Sex Assigned At Not on file [facility] Start: 08-01-2022 End: 09-25-2022 History of Social function [facility] Start: 08-01-2022 End: 09-25-2022 Tobacco use panel [facility] Adult Depression Screening Assessment 1 [facility] Start: 05-01-2024 End: 06-13-2024 Sex Female (finding) [facility] Goals Date Patient Goal Desired Activity /State Functional Status Date Assessment Result Facility 09-22-2021 [facility] Work Phone: 09-22-2021 Functional status None [facility] Work Phone: 09-19-2021 Functional status Oral Expressio n Ability No Impairment [facility] Work Phone: Mental Status Date Assessment Result Facility 07-03-2023 Cognitive function Level Of Cons ciousness Awake;Alert;Appropriate;Follow s Commands [facility] Work Phone: 09-22-2021 Cognitive function Level Of Cons ciousness Awake;Alert;Appropriate;Follow s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 and/or fellow if applicable. I also have reviewed and agree with the assessment and plan as stated above and agree with all of its relevant components. Kathe Caraballo MD, PhD Vitreoretinal Surgery AND Ocular Inflammatory Diseases [facility] 10-17-2022 Note HNO ID: [id number] Author: Kathe Caraballo MD Service: ? Author Type: Physician Type: Progress Notes Filed: 10/17/2022 3:05 PM Note Text: HPI: Vision about stable not as good as other eye Impression: 66 year old female #. 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 Pseudophakia OU - stable both eyes PLAN: Discussed above findings with the patient Amsler grid and AREDS2 use, mediterranean diet reviewed. RTC warning signs reviewed Rpt Avastin given without complication OS F/U - ~ 4 weeks NEXT: DILATE, OCT both eyes, switch to Eylea left eye if possible I have confirmed and edited as necessary the relevant ophthalmic history, ROS, and the neuro exam findings as obtained by others. I have seen and examined this patient. I have discussed the case and the management of this patient's care with the Resident and/or fellow if applicable. I also have reviewed and agree with the assessment and plan as stated above and agree with all of its relevant components. Kathe Caraballo MD, PhD Vitreoretinal Surgery AND Ocular Inflammatory Diseases [facility] 10-17-2022 Instructions Kathe Caraballo MD - 10/17/2022 3:02 PM EDT Post Injection Patient Information You had eye injection(s) today. These are your after injection instructions. Today: Preservative free artificial tears 1 drop every hour while awake as needed Tomorrow: Preservative free artificial tears 1 drop every 2 hours while awake as needed Care instructions after eye injections: Do not rub or touch your eye other than dabbing lightly with a tissue An hwyh-vdr-dwcpgwq pain reliever (i.e. Tylenol) can be used for mild soreness Use artificial tears/lubricating drops once an hour as needed for comfort (chill the tears in the refrigerator for more comfort). If you are using the tears more than 4 times a day they need to be the preservative free kind Warm or cool compresses are okay It is okay to shower and wash your face. No swimming pools or saunas for 24 hours COMMON symptoms after successful eye injections: Mild to moderate pain or irritation beginning the day of the injection. This should begin to improve the following day. Eyelash in the eye or yobani/gritty sensation Tearing Mild floaters or bubbles in your vision - usually resolves after 1-2 days Bloody tears for 1-2 days after treatment Eye Redness Also known as subconjunctival hemorrhage This bruise can cover the entire white part of the eye and may last a few weeks CONCERNING symptoms after eye injections: Severe, constant pain Worsening pain after the first day Decreased vision Severe, constant floaters Curtain or veil in your vision New eye redness that was not there after the injection and covers the whole eye Please call the office immediately for any of the above listed concerning symptoms or with any other questions. If it is after hours please call [phone] which will give instructions on how to reach the eye doctor combination saw operator documented in this encounter [facility] 10-17-2022 History of Presen t illness Narrative HPI: Vision about stable not as good as other eye Impression: 66 year old female #. 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 Pseudophakia OU - stable both eyes PLAN: Discussed above findings with the patient Amsler grid and AREDS2 use, mediterranean diet reviewed. RTC warning signs reviewed Rpt Avastin given without complication OS F/U - ~ 4 weeks NEXT: DILATE, OCT both eyes, switch to Eylea left eye if possible I have confirmed and edited as necessary the relevant ophthalmic history, ROS, and the neuro exam findings as obtained by others. I have seen and examined this patient. I have discussed the case and the management of this patient's care with the Resident and/or fellow if applicable. I also have reviewed and agree with the assessment and plan as stated above and agree with all of its relevant components. Kathe Caraballo MD, PhD Vitreoretinal Surgery & Ocular Inflammatory Diseases [facility] documented in this encounter [facility] 09-05-2022 Note HNO ID: [id number] Author: Kathe Caraballo MD Service: ? Author Type: Physician Type: Progress Notes Filed: 09/05/2022 3:59 PM Note Text: HPI: Vision about stable not as good as other eye Impression: 66 year old female #. 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 Pseudophakia OU - stable both eyes PLAN: Discussed above findings with the patient Amsler grid and AREDS2 use, mediterranean diet reviewed. RTC warning signs reviewed Rpt Avastin given without complication OS F/U - ~ 5 weeks NEXT: DILATE, OCT both eyes, injection only Avastin left eye next visit I have confirmed and edited as necessary the relevant ophthalmic history, ROS, and the neuro exam findings as obtained by others. I have seen and examined this patient. I have discussed the case and the management of this patient's care with the Resident and/or fellow if applicable. I also have reviewed and agree with the assessment and plan as stated above and agree with all of its relevant components. Kathe Caraballo MD, PhD Vitreoretinal Surgery AND Ocular Inflammatory Diseases [facility] 09-05-2022 Instructions Kathe Caraballo MD - 09/05/2022 3:56 PM EDT Post Injection Patient Information You had eye injection(s) today. These are your after injection instructions. Today: Preservative free artificial tears 1 drop every hour while awake as needed Tomorrow: Preservative free artificial tears 1 drop every 2 hours while awake as needed Care instructions after eye injections: Do not rub or touch your eye other than dabbing lightly with a tissue An atpg-urs-ciifzdq pain reliever (i.e. Tylenol) can be used for mild soreness Use artificial tears/lubricating drops once an hour as needed for comfort (chill the tears in the refrigerator for more comfort). If you are using the tears more than 4 times a day they need to be the preservative free kind Warm or cool compresses are okay It is okay to shower and wash your face. No swimming pools or saunas for 24 hours COMMON symptoms after successful eye injections: Mild to moderate pain or irritation beginning the day of the injection. This should begin to improve the following day. Eyelash in the eye or yobani/gritty sensation Tearing Mild floaters or bubbles in your vision - usually resolves after 1-2 days Bloody tears for 1-2 days after treatment Eye Redness Also known as subconjunctival hemorrhage This bruise can cover the entire white part of the eye and may last a few weeks CONCERNING symptoms after eye injections: Severe, constant pain Worsening pain after the first day Decreased vision Severe, constant floaters Curtain or veil in your vision New eye redness that was not there after the injection and covers the whole eye Please call the office immediately for any of the above listed concerning symptoms or with any other questions. If it is after hours please call [phone] which will give instructions on how to reach the eye doctor combination saw operator documented in this encounter [facility] 09-05-2022 History of Presen t illness Narrative HPI: Vision about stable not as good as other eye Impression: 66 year old female #. 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 Pseudophakia OU - stable both eyes PLAN: Discussed above findings with the patient Amsler grid and AREDS2 use, mediterranean diet reviewed. RTC warning signs reviewed Rpt Avastin given without complication OS F/U - ~ 5 weeks NEXT: DILATE, OCT both eyes, injection only Avastin left eye next visit I have confirmed and edited as necessary the relevant ophthalmic history, ROS, and the neuro exam findings as obtained by others. I have seen and examined this patient. I have discussed the case and the management of this patient's care with the Resident and/or fellow if applicable. I also have reviewed and agree with the assessment and plan as stated above and agree with all of its relevant components. Kathe Caraballo MD, PhD Vitreoretinal Surgery & Ocular Inflammatory Diseases [facility] documented in this encounter [facility] 08-23-2022 Miscellaneous Notes Called [facility], patient needs new office visit and new script. Patient was send on 07/21 informing which she did not read. Called patient and explained and gave her number to scheduling. SLEEP PHONE Name of caller: Ivon Relationship to patient : Self In-state or [id number] patient: In-State Was permission obtained from patient? Yes Patient identified by Name and Date of . ( Ivon Wiseman, 1955). Yes Reason for Call : Patient left voicemail stating she is wanting to get a new CPAP machine. Number to return call [phone] (home) Okay to leave a message ? Yes Last office visit 12.13.[address] Arias in person documented in this encounter [facility] 08-01-2022 Note HNO ID: [id number] Author: Kathe Caraballo MD Service: ? Author Type: Physician Type: Progress Notes Filed: 08/01/2022 3:33 PM Note Text: HPI: Vision about the same maybe slighlty improved Impression: 66 year old female #. 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 Pseudophakia OU - stable both eyes PLAN: Discussed above findings with the patient Amsler grid and AREDS2 use, mediterranean diet reviewed. RTC warning signs reviewed Rpt Avastin given without complication OS F/U - ~ 4 weeks NEXT: DILATE, OCT both eyes, injection only Avastin left eye next visit I have confirmed and edited as necessary the relevant ophthalmic history, ROS, and the neuro exam findings as obtained by others. I have seen and examined this patient. I have discussed the case and the management of this patient's care with the Resident and/or fellow if applicable. I also have reviewed and agree with the assessment and plan as stated above and agree with all of its relevant components. Kathe Caraballo MD, PhD Vitreoretinal Surgery AND Ocular Inflammatory Diseases [facility] 08-01-2022 Instructions Kathe Caraballo MD - 08/01/2022 3:30 PM EDT Post Injection Patient Information You had eye injection(s) today. These are your after injection instructions. Today: Preservative free artificial tears 1 drop every hour while awake as needed Tomorrow: Preservative free artificial tears 1 drop every 2 hours while awake as needed Care instructions after eye injections: Do not rub or touch your eye other than dabbing lightly with a tissue An ggwx-gua-fkcxqkc pain reliever (i.e. Tylenol) can be used for mild soreness Use artificial tears/lubricating drops once an hour as needed for comfort (chill the tears in the refrigerator for more comfort). If you are using the tears more than 4 times a day they need to be the preservative free kind Warm or cool compresses are okay It is okay to shower and wash your face. No swimming pools or saunas for 24 hours COMMON symptoms after successful eye injections: Mild to moderate pain or irritation beginning the day of the injection. This should begin to improve the following day. Eyelash in the eye or yobani/gritty sensation Tearing Mild floaters or bubbles in your vision - usually resolves after 1-2 days Bloody tears for 1-2 days after treatment Eye Redness Also known as subconjunctival hemorrhage This bruise can cover the entire white part of the eye and may last a few weeks CONCERNING symptoms after eye injections: Severe, constant pain Worsening pain after the first day Decreased vision Severe, constant floaters Curtain or veil in your vision New eye redness that was not there after the injection and covers the whole eye Please call the office immediately for any of the above listed concerning symptoms or with any other questions. If it is after hours please call [phone] which will give instructions on how to reach the eye doctor combination saw operator documented in this encounter [facility] 08-01-2022 History of Presen t illness Narrative HPI: Vision about the same maybe slighlty improved Impression: 66 year old female #. 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 Pseudophakia OU - stable both eyes PLAN: Discussed above findings with the patient Amsler grid and AREDS2 use, mediterranean diet reviewed. RTC warning signs reviewed Rpt Avastin given without complication OS F/U - ~ 4 weeks NEXT: DILATE, OCT both eyes, injection only Avastin left eye next visit I have confirmed and edited as necessary the relevant ophthalmic history, ROS, and the neuro exam findings as obtained by others. I have seen and examined this patient. I have discussed the case and the management of this patient's care with the Resident and/or fellow if applicable. I also have reviewed and agree with the assessment and plan as stated above and agree with all of its relevant components. Kathe Caraballo MD, PhD Vitreoretinal Surgery & Ocular Inflammatory Diseases [facility] documented in this encounter [facility] 06-27-2022 Note HNO ID: [id number] Author: Kathe Caraballo MD Service: ? Author Type: Physician Type: Progress Notes Filed: 06/30/2022 1:51 AM Note Text: HPI: Vision about the same maybe slighlty improved Impression: 66 year old female #. 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 Pseudophakia OU - stable both eyes PLAN: Discussed above findings with the patient Amsler grid and AREDS2 use, mediterranean diet reviewed. RTC warning signs reviewed Rpt Avastin given without complication OS F/U - ~ 4 weeks NEXT: DILATE, OCT both eyes, injection only Avastin left eye next visit I have confirmed and edited as necessary the relevant ophthalmic history, ROS, and the neuro exam findings as obtained by others. I have seen and examined this patient. I have discussed the case and the management of this patient's care with the Resident and/or fellow if applicable. I also have reviewed and agree with the assessment and plan as stated above and agree with all of its relevant components. Kathe Caraballo MD, PhD Vitreoretinal Surgery AND Ocular Inflammatory Diseases [facility] 06-27-2022 Instructions Kathe Caraballo MD - 06/27/2022 4:35 PM EDT Post Injection Patient Information You had eye injection(s) today. These are your after injection instructions. Today: Preservative free artificial tears 1 drop every hour while awake as needed Tomorrow: Preservative free artificial tears 1 drop every 2 hours while awake as needed Care instructions after eye injections: Do not rub or touch your eye other than dabbing lightly with a tissue An dokx-bhq-kowmezo pain reliever (i.e. Tylenol) can be used for mild soreness Use artificial tears/lubricating drops once an hour as needed for comfort (chill the tears in the refrigerator for more comfort). If you are using the tears more than 4 times a day they need to be the preservative free kind Warm or cool compresses are okay It is okay to shower and wash your face. No swimming pools or saunas for 24 hours COMMON symptoms after successful eye injections: Mild to moderate pain or irritation beginning the day of the injection. This should begin to improve the following day. Eyelash in the eye or yobani/gritty sensation Tearing Mild floaters or bubbles in your vision - usually resolves after 1-2 days Bloody tears for 1-2 days after treatment Eye Redness Also known as subconjunctival hemorrhage This bruise can cover the entire white part of the eye and may last a few weeks CONCERNING symptoms after eye injections: Severe, constant pain Worsening pain after the first day Decreased vision Severe, constant floaters Curtain or veil in your vision New eye redness that was not there after the injection and covers the whole eye Please call the office immediately for any of the above listed concerning symptoms or with any other questions. If it is after hours please call [phone] which will give instructions on how to reach the eye doctor combination saw operator documented in this encounter [facility] 06-27-2022 History of Presen t illness Narrative HPI: Vision about the same maybe slighlty improved Impression: 66 year old female #. 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 Pseudophakia OU - stable both eyes PLAN: Discussed above findings with the patient Amsler grid and AREDS2 use, mediterranean diet reviewed. RTC warning signs reviewed Rpt Avastin given without complication OS F/U - ~ 4 weeks NEXT: DILATE, OCT both eyes, injection only Avastin left eye next visit I have confirmed and edited as necessary the relevant ophthalmic history, ROS, and the neuro exam findings as obtained by others. I have seen and examined this patient. I have discussed the case and the management of this patient's care with the Resident and/or fellow if applicable. I also have reviewed and agree with the assessment and plan as stated above and agree with all of its relevant components. Kathe Caraballo MD, PhD Vitreoretinal Surgery & Ocular Inflammatory Diseases [facility] documented in this encounter [facility] 06-21-2022 Miscellaneous Notes Sent demographics, script and office note To:[facility] Fax:[phone] Phone: documented in this encounter [facility] 05-09-2022 Instructions Kathe Caraballo MD - 05/09/2022 11:33 AM EDT Images from the original note were not included. What does AREDS2 contain? The AREDS2 Formula should contain: Lutein 10 milligrams (mg) Zeaxanthin 2mg Vitamin C 500mg Vitamin E 400IU Zinc oxide 80mg or 25mg (these two doses worked equally well), and Cupric oxide 2mg Consider switching to a mediterranean diet to prevent progression of your macular degeneration: this mainly consists of leafy green vegetables, yellow/orange vegetables, more fish over meat. Post Injection Patient Information You had eye injection(s) today. These are your after injection instructions. Today: Preservative free artificial tears 1 drop every hour while awake as needed Tomorrow: Preservative free artificial tears 1 drop every 2 hours while awake as needed Care instructions after eye injections: Do not rub or touch your eye other than dabbing lightly with a tissue An zaea-eya-zxrdkpp pain reliever (i.e. Tylenol) can be used for mild soreness Use artificial tears/lubricating drops once an hour as needed for comfort (chill the tears in the refrigerator for more comfort). If you are using the tears more than 4 times a day they need to be the preservative free kind Warm or cool compresses are okay It is okay to shower and wash your face. No swimming pools or saunas for 24 hours COMMON symptoms after successful eye injections: Mild to moderate pain or irritation beginning the day of the injection. This should begin to improve the following day. Eyelash in the eye or yobani/gritty sensation Tearing Mild floaters or bubbles in your vision - usually resolves after 1-2 days Bloody tears for 1-2 days after treatment Eye Redness Also known as subconjunctival hemorrhage This bruise can cover the entire white part of the eye and may last a few weeks CONCERNING symptoms after eye injections: Severe, constant pain Worsening pain after the first day Decreased vision Severe, constant floaters Curtain or veil in your vision New eye redness that was not there after the injection and covers the whole eye Please call the office immediately for any of the above listed concerning symptoms or with any other questions. If it is after hours please call [phone] which will give instructions on how to reach the eye doctor combination saw operator documented in this encounter [facility] 05-09-2022 History of Presen t illness Narrative HPI: Advanced vision loss for age; diagnosed with Age related macular degeneration in 2016, has no family history Impression: 66 year old female #. Age related macular degeneration - Smoking history: never personally, but second hand smoke was prominent; Family history: none in blood relations RIGHT EYE - nonexudative Age related macular degeneration with significant geographic atrophy LEFT EYE - possible exudative Age related macular degeneration with significant geographic atrophy, Avastin given OS #. Pseudophakia OU - stable both eyes PLAN: Discussed above findings with the patient Amsler grid and AREDS2 use, mediterranean diet reviewed. RTC warning signs reviewed RBA anti-VEGF left eye, Avastin given without complication OS F/U - ~ 4 weeks NEXT: DILATE, OCT both eyes, OCTA both eyes, Optos photos and Autofluorescence OU I have confirmed and edited as necessary the relevant ophthalmic history, ROS, and the neuro exam findings as obtained by others. I have seen and examined this patient. I have discussed the case and the management of this patient's care with the Resident and/or fellow if applicable. I also have reviewed and agree with the assessment and plan as stated above and agree with all of its relevant components. Kathe Caraballo MD, PhD Vitreoretinal Surgery & Ocular Inflammatory Diseases [facility] documented in this encounter [facility] 04-15-2022 History of Presen t illness Narrative Sleep Study Check-In Documentation Date: April 15, 2022 Name: Ivon Wisemna Patient was accompanied by Self. Location: [place] Latex allergy: No Tape allergy: No Current medications were reviewed with the patient:Yes Sleep aid taken by patient for the sleep study: Yes Name of sleep aid: Trazodone Procedure was explained to the patient and all questions were answered. PAP treatment discussed and shown to patient: Yes Knowledge Program (KP): KP was not completed in [facility] by patient and accepted Study type: Polysomnogram Adverse Event: No (If yes create a new abstract) Comments: Patient was advised to follow up with their ordering provider regarding test results Izabel Sue documented in this encounter [facility] 02-24-2022 History of Presen t illness Narrative Sleep Study Check-In Documentation Date: February 24, 2022 Name: Ivon Wiseman Comments: HST was returned in working order with all sleep questionnaires Silvana Sapp [employer]# [id number] Mail out date:02/21/22 [employer] Shipping #:[id number] [employer] Return #:[id number] February 08, 2022 An order has been received for Home Sleep Apnea Test (HSAT) from [facility] Staff/Plate Inspector Staff Orders. Visit prep complete - Please refer to the sleep study order (under procedures tab) for protocol details and special instructions. The sleep study is scheduled for 02/22. Insurance: Payor: MEDICARE / Plan: MEDICARE A AND B / Product Type: Medicare / Payer/Plan Subscr Sex Relation Sub. Ins. ID Effective Group Num 1. MEDICARE - [place]* JALEN WISEMANFaye De Leon 1955 Female Self [id number] 11/26/10 [address] - CH* VEGA WISEMANCOREY De Leon 1955 Female Self [id number] 08/26/12 [address] [address] Yahaira Padilla documented in this encounter [facility] 12-13-2021 Miscellaneous Notes Images from the original note were not included. documented in this encounter [facility] 12-13-2021 Instructions Mirlande Arias MD - 12/13/2021 11:26 AM EDT We'll ask [employer] for a download from your unit If medicare requires a repeat sleep study, we'll do a home sleep study. Let us know if you run into any difficulties If Restless Legs get worse; would suggest a change of medication, and checking iron and ferritin (the stored form of iron) in you blood. Ferritin should be > 75 to keep the legs quite See us yearly documented in this encounter [facility] 12-13-2021 History of Presen t illness Narrative Images from the original note were not included. [facility] New Patient Evaluation Virtual PCP Sakina dong [place] PATIENT NAME: Ivon Wiseman DATE OF SERVICE: December 13, [address] Up and Marquita Koch CNP Last visit 2014 CONSULTING PROVIDER: SELF REASON FOR VISIT: TEETEE HPI: Ivon Wiseman is a 66 year old female with PE, COPD, RLS, CAD, Obesity, TEETEE Sleep-related history: In need of supplies and masks, headgear. She has been using CPAP with perceived benefit since 2001. Last supplies 5 years ago No current sleep complaints. Resolution of RLS on Mirapex. No longer on Ambien CR for insomnia TEETEE: Dx [facility] 2001 AHI 38 DME: [facility] [employer] S10 [employer], stopped transmitting Aril 2021 APAP 13-20 Ave pressure 14 AHI 0.2 Used 100% nights 7 hours nightly No leak No detailed data Nasal pillows RLS: Mirapex 0.[address] Corral No augmentation or obsessive behavior, up to date on colon ca screening per report. Pregabalin 75 daily No results found for: MOHINI EDS Armodafanil 200 mg filled 10/07/21 [facility] Insomnia Ambien 12.5 CR nightly 2012 stopped SLEEP FUNCTIONAL OUTCOME MEASURES Patient-Entered Questionnaire Sleep Scores PHQ-9 12/18/2012 04/23/2013 11/11/2014 Score 14 7 18 REVIEW OF SYSTEMS Negative except for above stated PAST MEDICAL HISTORY Diagnosis Date Arthropathy, unspecified, site unspecified Atrial fibrillation (HCC) 05/06/2010 Ablation 2010. Chronic obstructive pulmonary disease (COPD) (HCC) Coronary artery disease DVT (deep venous thrombosis) (HCC) 2011 Hypertension Macular degeneration Myalgia and myositis, unspecified Fibromyalgia (myalgia and myositis) Obstructive sleep apnea Pulmonary embolism (HCC) 2012 PAST SURGICAL HISTORY Procedure Laterality Date CARDIOVERSION 04/2006 COLONOSCOPY FLX DX W/COLLJ SPEC WHEN PFRMD 03/16/08 LIG/TRNSXJ FLP TUBE ABDL/VAG APPR UNI/BI 1983 Tubal ligation TONSILLECTOMY & ADENOIDECTOMY <AGE 12 @ 2yrs of age ACTIVE PROBLEM LIST Teetee (Obstructive Sleep Apnea) Obesity Copd (Chronic Obstructive Pulmonary Disease) ([facility]) Rls (Restless Legs Syndrome) Dvt (Deep Venous Thrombosis) ([facility]) Pulmonary Embolism ([facility]) Coronary Artery Disease Allergies As of Date: 12/13/2021 Allergen Noted Reaction FLECAINIDE 12/18/2012 Hives Fully Assessed 12/13/2021 CURRENT MEDICATIONS: armodafinil (NUVIGIL) 200 mg tab Take 200 mg by mouth once daily. CPAP autoPAP 13-20 cmH2O, mask, tubing, filters, heated humidity, lifetime supplies. Please fax 09-04 compliance download to [phone] ([employer]). Dx: TEETEE celecoxib (CELEBREX) 200 mg capsule Take 1 capsule by mouth once daily. budesonide-formoterol 160-4.5 mcg/actuation inhaler Inhale 2 Puffs as instructed twice daily. Zolpidem (AMBIEN CR) 12.5 mg CR tablet Take 1 tablet by mouth at bedtime as needed. metoprolol tartrate, short acting, 25 mg tablet Take 1 tablet by mouth once daily. warfarin (COUMADIN) 5 mg tablet Take 1 tablet by mouth daily as directed. 9 mg daily warfarin (COUMADIN) 4 mg tablet Take 1 tablet by mouth once daily. 9 mg daily pregabalin 75 mg capsule Take 1 capsule by mouth twice daily. pramipexole (MIRAPEX) 0.5 mg tablet Take 0.5 mg by mouth twice daily. olmesartn/hydrochlorothiazide(BE NICAR HCT 40 MG-12.5 MG TAB) Take one(1) tablet daily. atorvastatin calcium(LIPITOR 20 MG TAB) Take one(1) tablet daily. multivitamins(MULTIPLE VITAMIN TAB) Take one(1) tablet daily. calcium carbonate(CALTRATE 600 600 MG (1,500 MG) TAB) Take two(2) tablets daily. SOCIAL HISTORY Social History Tobacco Use Smoking status: Never Smokeless tobacco: Never Tobacco comments: Father smoked in childhood home. Spouse smoked about 6 years. Workplace ETS exposure. Substance Use Topics Alcohol use: No Comment: LONG AGO Drug use: No FAMILY HISTORY FAMILY HISTORY Problem Relation Age of Onset Diabetes Father other (congestive heart failure [Other]) Father Heart Paternal Grandfather Emphysema Maternal Grandfather smoker other (hypercholesterolemia [Other]) Mother other (rheumatic fever [Other]) Mother Heart Paternal Uncle fatal [place] Arthritis Maternal Aunt other (lung cancer [Other]) Paternal Uncle smoker PHYSICAL EXAMINATION: Vital Signs: There were no vitals filed for this visit. Estimated body mass index is 45.83 kg/m as calculated from the following: Height as of 01/06/13: 162.6 cm (5' 4). Weight as of 06/22/15: 121.1 kg (267 lb). PHYSICAL EXAM: General appearance: WD WN NAD Mental status: AOx3 Neck: No goiter visible Constitutional: NL Skin: NL Eyes: NL Neuro: Nl CN, no tremors Psych: Nl mood and affect IMPRESSION/PLAN: Ivon Wiseman is a 66 year old female with PE, COPD, RLS, CAD, Obesity, TEETEE Sleep-related history: In need of supplies and masks, headgear. She has been using CPAP with perceived benefit since 2001. Last supplies 5 years ago. No current sleep complaints aside from being in need of supply renewal. -Resolution of RLS on Mirapex; currently without augmentation or obsessive behaviors. Advised her that should either occur a change of medication to gabapentin would be recommended. Also would recommend a serum ferritin of > 75 for RLS -Ambien stopped many years ago, armodafanil filled by Dr Corral -TEETEE: modem stopped transmitting May 2021. Will ask [facility] for a manual download. Supplies renewed. If a repeat diagnostic study needed for supplies, then HSAT F/u yearly Mirlande Arias MD CLICK HERE FOR PAGING COPY AND PASTE Please contact Ivon Wiseman - Mirlande Arias MD THIS HELP TEXT WILL DISAPPEAR WHEN YOU SAVE YOUR NOTE :[id number]} documented in this encounter [facility] 09-24-2021 Discharge summary Note Date/Time September 16, 2021 2:41pm [facility] [address] [place] [id number] HEALTH INFORMATION MANAGEMENT EMERGENCY DEPARTMENT : [id number] Signed Patient: IVON WISEMAN Acct:[id number] MRUN: [id number] : 1955 Sex: F Loc: ICU AD M Date: 09/16/21 Room/Bed: [facility] DISC Date: 09/22/21 History of Present Illness - General Chief Complaint: Syncopal Stated Complaint: NAUSEA LIGHT HEADED FEELS SYNCOPAL Symptom onset: YESTERDAY HPI: PATIENT STATES I GET DIZZY WHEN I STAND UP AND IF I EVEN LOOK AT FOOD I GET NAUSEOUS, AND I JUST HAVE NO ENERGY. ITS BEEN LIKE THIS SINCE YESTERDAY. Source: Patient, RN notes reviewed, Old records Mode of Transport: Wheelchair - History of Present Illness Initial Comments: Patient presents the ED with family member complaint of just not feeling well nauseous anorexic. The nausea began this morning but in general her illness began yesterday. She states she did not feel well last evening she was shivering and was sweating despite having a blanket. She denies any cough or shortness of breath no abdominal pain she does have nausea no associated diarrhea no ill contacts. She has no myalgias arthralgias she has been vaccinated and had 1 COVID booster. She does have chronic A. fib she takes metoprolol and Coumadin regularly. - Related Data Home Medications Medication Instructions Recorded Confirmed Albuterol Sulfate [Proair Hfa] 2 puff IN Q4H PRN 09/16/21 09/16/21 Atorvastatin Calcium [Lipitor 20 20 mg PO QHS 09/16/21 09/16/21 mg Tablet] Calcium Carbonate [Calcium] 2 tab PO DAILY 09/16/21 09/16/21 Celecoxib [Celebrex 200 mg Capsule] 1 cap PO DAILY 09/16/21 09/16/21 Hydrocodone Bit/Acetaminophen 1 tab PO BID 09/16/21 09/16/21 [Palo 5/325 mg Tablet] Metoprolol Succinate [Toprol Xl 25 25 mg PO BID 09/16/21 09/16/21 mg Tablet] Olmesartan Medoxomil [Benicar] 1 tab PO DAILY 09/16/21 09/16/21 Pramipexole Di-HCl [Mirapex] 0.5 mg PO BID 09/16/21 09/16/21 Solifenacin Succinate [Vesicare] 5 mg PO DAILY 09/16/21 09/16/21 Trazodone HCl [Desyrel 50 mg 50 mg PO BID 09/16/21 09/16/21 Tablet] Vit A/Vit C/Vit E/Zinc/Copper 1 tab PO DAILY 09/16/21 09/16/21 [Preservision Areds Tablet] Vortioxetine Hydrobromide 20 mg PO DAILY 09/16/21 09/16/21 [Trintellix] Warfarin Sodium [Coumadin 6 mg 6 mg PO QHS 09/16/21 09/16/21 Tablet] Allergies Allergy/AdvReac Type Severity Reaction Status Date / Time flecainide Allergy Verified 09/16/21 14:32 Review of System - Constitutional Constitutional: Present: see HPI, fever, weakness, Obese - CV Cardiology: Present: see HPI, palpitations - GI Gastrointestinal/Abdominal: Present: see HPI, nausea. Absent: abdominal pain, constipation, diarrhea - Genitourinary Symptoms: Absent: dysuria - Neuro Neurological: Absent: headache, weakness - Muskuloskeletal Musculoskeletal: Absent: back pain, joint pain, joint swelling - Integumentary Skin: Absent: lesions, rash - All Others/Exceptions All Other Systems: Reviewed and Negative Except Where Noted in Documentation ED PMH/Social HX/Family HX - Respiratory Hx Respiratory Disorders: Yes PMH--Respiratory: COPD - Cardiovascular Hx Cardiac Disorders: Yes PMH--Cardiovascular: Atrial Fib, CHF, HTN, Hypercholesterolemia - Neurological Hx Neurological Disorder: No - Endocrine Hx Endocrine Disorders: No - Gastrointestinal Hx Gastrointestinal Disorders: No - Genitourinary Hx Genitourinary Disorders: No - Musculoskeletal Hx Musculoskeletal Disorders: Yes PMH--Musculoskeletal: Arthritis, Degen. Disk Disease, Fibromyalgia - Reproductive ?: No Hx Reproductive Disorders: No - Psychological Hx Psychosocial Problems: No - HEENT Hx Ear, Nose Throat Disorders: No - Cancer Hx Cancer: No - Social History Able to Read: Yes Able to Write: Yes Smoking Status: Never Smoked Hx Chewing Tobacco Use: No Alcohol Use: Never Any recreational drug use reported?: No Feels Threatened In Home Environment: No Feels Threatened In a Relationship: No - [place]-Suicide Severity Rating Scale 1) Wish to be :: No 2) Suicidal Thoughts:: No 3) Suicidal Thoughts with Method (without specific plan or intent to act):: No 4) Suicidal Intent (WITHOUT Specific Plan):: No 5) Suicidal Intent (WITH Specific Plan):: No 6) Suicidal Behavior Question (A): LIFETIME: No 6) Suicidal Behavior Question (B): PAST 3 MONTHS: No Patient Safety Strategies Initiated?: No General Exam - General Limitations: Complains of: no limitations Constitutional: Present: see HPI, Well developed, Well nourished, well hydrated,Non-toxic, fever - Head Head exam: Present: atraumatic, normocephalic, normal inspection - Eye Eye exam: Present: normal apperance, normal accomodation, EOMI Pupils: Present: PERRL - ENT ENT exam: Present: normal orophraynx, mucous membranes moist, TMs clear w/ good light reflex, normal external ear exam, No Nasal Discharge, Posterior Pharynx Non-erethemetous - Expanded ENT Exam Ear exam: Present: normal external inspection Mouth exam: Present: normal external inspection Teeth exam: Present: normal inspection Throat exam: normal inspection - Neck Neck exam: Present: full ROM, Supple. Absent: tenderness, meningismus, Posterior Lymphadenopathy, Anterior Lymphadenopathy - Respiratory Respiratory exam: Present: lungs clear and equal bilaterally. Absent: respiratory distress, wheezes, rales, rhonchi, accessory muscle use - Cardiovascular Cardiovascular Exam: Present: tachycardia, irregular rhythm, normal heart sounds. Absent: murmur, rubs, gallop, clicks - GI/Abdominal GI/Abdominal exam: Present: soft, non tender, normal bowel sounds. Absent: guarding, rebound, rigid, mass, bruit - Extremities Exam Extremities exam: Present: normal inspection, full ROM, neurovascularly intact - Back Exam Back exam: Present: normal inspection, full ROM. Absent: tenderness - Neurological Exam Neurological exam: Present: alert, oriented X3, CN II-XII intact - Expanded Neurological Exam Patient oriented to: Present: person, place, time Speech: Present: fluid speech - Psychiatric Psychiatric exam: Present: normal affect, normal mood - Skin Skin Color: Present: Normal, [place], Flushed Skin exam: Present: warm, intact. Absent: rash - Expanded Skin Exam Type of lesion: Absent: rash - Vital Signs Vital Signs 09/16/21 09/16/21 14:12 15:28 Temperature 103.1 F H Pulse Rate [ 113 H 124 H Pulse Ox] Respiratory 18 Rate Blood Pressure 143/68 120/65 [Left Arm Sitting] O2 Sat by Pulse 97 96 Oximetry(%) Fever MDM - Lab Data Result diagrams: 09/16/21 14:52 09/16/21 14:52 Lab Results 09/16/21 09/16/21 09/16/21 Range/Units 14:52 14:52 15:19 WBC 10.5 (3.6-10.8) K/uL RBC 3.83 (3.83-5.19) M/uL Hgb 12.1 (11.1-13.7) g/dL Hct 39.0 (33.4-46.0) % MCV 101.8 H (81.0-99.0) fL MCH 31.6 H (27.0-31.0) pg MCHC 31.0 L (33.0-37.0) g/dL RDW 14.7 H (11.5-14.5) % Plt Count 174 (148-402) K/uL MPV 9.6 (7.4-10.4) fL Neut % (Auto) 87.2 H (43.0-65.0) % Lymph % (Auto) 6.1 L (17.0-45.5) % [place] % (Auto) 6.2 (5.5-11.7) % Eos % (Auto) 0.1 L (0.9-2.9) % Baso % (Auto) 0.2 (0.2-1.0) % Abs Immat Gran (man) 0.02 (0.00-0.10) K/uL Absolute Neuts (auto) 9.18 H (2.20-4.80) K/uL Absolute Lymphs (auto) 0.60 L (1.30-2.90) K/uL Absolute Monos (auto) 0.70 (0.30-0.80) K/uL Absolute Eos (auto) 0 (0.00-0.20) K/uL Absolute Basos (auto) 0.02 (0.00-0.10) K/uL Immature Gran % 0.20 (0.00-1.00) % PT 16.6 H (8.9-12.2) sec INR 1.77 ratio Sodium 134 (132-145) mmol/L Potassium 4.2 (3.3-5.1) mmol/L Chloride 100 (94-110) mmol/L Total Carbon Dioxide 23 (21-34) mmol/L Anion Gap 15.2 (8.0-16.0) mmol/L BUN 19.5 (3.2-26.9) mg/dL Creatinine 1.37 H (0.51-0.95) mg/dL Est GFR (MDRD) Af Amer 46 A (>60) Est GFR (MDRD) Non-Af 38 A (>60) BUN/Creatinine Ratio 14 (6-20) Glucose 140 H (65-100) mg/dL Calcium 8.9 (8.2-10.0) mg/dL Total Bilirubin 1.23 H (0.00-0.99) mg/dL AST 25 (3-39) U/L ALT 30 (13-66) U/L Alkaline Phosphatase 119 H (54-112) U/L Total Protein 7.2 (6.1-8.2) g/dL Albumin 3.0 L (3.4-5.0) g/dL Globulin 4.2 (1.5-4.5) g/dL Albumin/Globulin Ratio 0.7 L (1.1-2.5) Urine Color (Yellow) Urine Appearance (Clear) Urine pH Ur Specific [place] (1.015-1.025) Urine Protein (Negative) Urine Ketones (Negative) Urine Blood (Negative) Urine Nitrite (Negative) Urine Bilirubin (Negative) Urine Urobilinogen (Normal-1.0) mg/dL Ur Leukocyte Esterase (Negative) Urine Glucose (Negative) SARS-CoV-2 Ag (Rapid) (Negative) 09/16/21 09/16/21 Range/Units 15:20 15:20 WBC (3.6-10.8) K/uL RBC (3.83-5.19) M/uL Hgb (11.1-13.7) g/dL Hct (33.4-46.0) % MCV (81.0-99.0) fL MCH (27.0-31.0) pg MCHC (33.0-37.0) g/dL RDW (11.5-14.5) % Plt Count (148-402) K/uL MPV (7.4-10.4) fL Neut % (Auto) (43.0-65.0) % Lymph % (Auto) (17.0-45.5) % [place] % (Auto) (5.5-11.7) % Eos % (Auto) (0.9-2.9) % Baso % (Auto) (0.2-1.0) % Abs Immat Gran (man) (0.00-0.10) K/uL Absolute Neuts (auto) (2.20-4.80) K/uL Absolute Lymphs (auto) (1.30-2.90) K/uL Absolute Monos (auto) (0.30-0.80) K/uL Absolute Eos (auto) (0.00-0.20) K/uL Absolute Basos (auto) (0.00-0.10) K/uL Immature Gran % (0.00-1.00) % PT (8.9-12.2) sec INR ratio Sodium (132-145) mmol/L Potassium (3.3-5.1) mmol/L Chloride (94-110) mmol/L Total Carbon Dioxide (21-34) mmol/L Anion Gap (8.0-16.0) mmol/L BUN (3.2-26.9) mg/dL Creatinine (0.51-0.95) mg/dL Est GFR (MDRD) Af Amer (>60) Est GFR (MDRD) Non-Af (>60) BUN/Creatinine Ratio (6-20) Glucose (65-100) mg/dL Calcium (8.2-10.0) mg/dL Total Bilirubin (0.00-0.99) mg/dL AST (3-39) U/L ALT (13-66) U/L Alkaline Phosphatase (54-112) U/L Total Protein (6.1-8.2) g/dL Albumin (3.4-5.0) g/dL Globulin (1.5-4.5) g/dL Albumin/Globulin Ratio (1.1-2.5) Urine Color Dark yellow A (Yellow) Urine Appearance sl.cloudy (Clear) Urine pH 5 Ur Specific [place] 1.015 (1.015-1.025) Urine Protein 75 (Negative) Urine Ketones Negative (Negative) Urine Blood 50 A (Negative) Urine Nitrite Positive A (Negative) Urine Bilirubin 1 A (Negative) Urine Urobilinogen Normal (Normal-1.0) mg/dL Ur Leukocyte Esterase 2+ A (Negative) Urine Glucose Normal (Negative) SARS-CoV-2 Ag (Rapid) Negative (Negative) Orders: Medications Ceftriaxone Sodium 1 gm/ (Sodium Chloride) 50 mls @ 100 mls/hr IVPB STAT STA Stop: 09/16/21 16:20 Last Admin: 09/16/21 15:56 Dose: 100 mls/hr, 100 mls/hr Documented by: [email or web address] Discontinued Medications Acetaminophen (Acetaminophen 325 Mg Tablet) 1,000 mg PO STAT STA Stop: 09/16/21 14:38 Last Admin: 09/16/21 15:12 Dose: 975 mg Documented by: [email or web address] Ondansetron HCl (Ondansetron Hcl/Pf 4 Mg/2 Ml Injection) 4 mg IVP STAT STA Stop: 09/16/21 14:39 Last Admin: 09/16/21 15:12 Dose: 4 mg Documented by: [email or web address] Labs 09/16/21 14:25 EKG [CAR] Stat 09/16/21 14:26 12-Lead per nursing [RC] STAT 09/16/21 14:36 ED-IV [RC] ONE Telemetry [RC] ONE 09/16/21 14:37 CHEST PA/LAT [DIAG] Stat Acetaminophen [Tylenol 325 mg Tablet] 1,000 mg PO STAT STA 09/16/21 14:38 Ondansetron HCl/Pf [Zofran 4 mg/2 ml Injection] 4 mg IVP STAT STA 09/16/21 14:52 CBC w/Auto Differential [HEM] Stat Comprehensive Metabolic Panel [CHM] Stat 09/16/21 15:00 COVID19 Discontinue of Isolation [RC] PRN Isolation/Precautions [RC] QS 09/16/21 15:19 INR [PT] [COA] Stat 09/16/21 15:20 SARS Antigen (Rapid) [CHM] Stat 09/16/21 15:27 Novel Coronavirus CoVid-19 [REF] Stat UA w/mandatory microscopic [URN] Stat 09/16/21 15:51 Ceftriaxone Sodium [Rocephin 1 Gram Injection] 1 gm Normal Saline [Sodium Chloride 0.9 % 50 ml] 50 ml IVPB STAT Ringers Lactated [Lactated Ringers 1000 ml] 1,000 ml IV Wide Open 09/16/21 16:09 Sepsis check Lactate Result [RC] ONE 09/16/21 16:10 Blood Culture PRN [RC] PRN Culture Urine [MIC2] Stat - EKG Data 1 EKG interpreted by: EKG interpreted by me Rhythm: A.Fib [place]/QRS: left axis deviation Q waves: v1 Qtc: Normal Ectopy: None EKG: Rate (128) - Radiology Data IMPRESSIONS Electrocardiogram 09/16/21 14:25 [facility] ED Test Date: 2021-09-16 Test Time: 14:25:42 Pat Name: IVON WISEMAN Department: Room: Gender: F 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 - Medical Decision Making Patient presented with acute fever and an ill feeling. She has no source historically. Chest x-ray is unremarkable no cough COVID-negative. Her examination soft and benign no suprapubic tenderness no back or flank discomfort. Urine clean-catch is abnormal will be sent for culture the patient has no significant leukocytosis heart rate improved with antipyretics. Explained to the patient she very could have a developing upper pole infection she has borderline to be discharged home I think considering her age comorbidities slight renal impairment although I do not have a baseline it would be reasonable for empiric antibiotics. I do not believe she is septic the hospitalist wanted blood cultures and a lactate I did not initially order this because my anticipation was to discharge her home. Patient will be admitted ED Discharge Summary - Discharge Data Clinical Impression: UTI (urinary tract infection) Condition: Good Disposition: 02 SHORT TERM HOSPITAL Referrals: SAKINA CORRAL [Primary Care Provider] - Home Medications: Ambulatory Orders Medication Instructions Recorded Albuterol Sulfate [Proair Hfa] 2 puff IN Q4H PRN 09/16/21 Atorvastatin Calcium [Lipitor 20 20 mg PO QHS 09/16/21 mg Tablet] Calcium Carbonate [Calcium] 2 tab PO DAILY 09/16/21 Celecoxib [Celebrex 200 mg Capsule] 1 cap PO DAILY 09/16/21 Hydrocodone Bit/Acetaminophen 1 tab PO BID 09/16/21 [Palo 5/325 mg Tablet] Metoprolol Succinate [Toprol Xl 25 25 mg PO BID 09/16/21 mg Tablet] Olmesartan Medoxomil [Benicar] 1 tab PO DAILY 09/16/21 Pramipexole Di-HCl [Mirapex] 0.5 mg PO BID 09/16/21 Solifenacin Succinate [Vesicare] 5 mg PO DAILY 09/16/21 Trazodone HCl [Desyrel 50 mg 50 mg PO BID 09/16/21 Tablet] Vit A/Vit C/Vit E/Zinc/Copper 1 tab PO DAILY 09/16/21 [Preservision Areds Tablet] Vortioxetine Hydrobromide 20 mg PO DAILY 09/16/21 [Trintellix] Warfarin Sodium [Coumadin 6 mg 6 mg PO QHS 09/16/21 Tablet] Electronically Generated By:BELA ROPER DO Generated Date/Time: 09/16/21 1436 Electronically Signed By: BELA ROPER DO Signed Date/Time 09/24/21 0721 Co Signed Electronically By: Co Signed Date/Time: CC: XIOMARA OLMOS MD; SAKINA CORRAL [facility] Work Phone: 1(439) 238-808707-28-2022 Progress note Author XIOMARA OLMOS [facility] September 22, 2021 11:47am Note Date/Time September 22, 2021 11:4 5am [facility] [address] [place] [address] HEALTH INFORMATION MANAGEMENT PROGRESS NOTE : [phone] Signed Patient: IVON WISEMAN Acct:[id number] MRUN: [id number] : 1955 Sex: F Loc: ICU AD M Date: 09/16/21 Room/Bed: 352-A DISC Date: CARDIOLOGY PROGRESS NOTE THIS DOCUMENT HAS BEEN CREATED USING VOICE RECOGNITION SOFTWARE AND MAY CONTAIN GRAMMATICAL, SYNTAX, AND TYPOGRAPHICAL ERRORS. Current Date: 09/22/21 IVON WISEMAN was admitted to MEDICAL SURGICAL service into room 352 on 09/16/21 at 16:17 for complaints of UTI. CC: F/U CHF S: Patient states she feels much better today. No chest pain or pressure. Review of Systems General: Denies: Fever Cardiovascular: Denies: Chest Pain-Sharp, Chest Pain-Heavy, Orthopnea, Short of Breath Cardiology Objective Findings Sepsis focused exam performed?: No General: Yes: Alert, Oriented Lungs: Yes: Clear to auscultation, Normal air movement Cardiovascular: Yes: Irregular rate, Normal S2, Normal S1 Neurological: Yes: Speech Clear Psych/Mental Status: Yes: Mental status NL Vitals and I&O: 09/21/21 09/21/21 09/22/21 11:59 23:59 11:59 Weight 259 lb 4.8 oz Intake: IV Intake 200 100 100 Zosyn 4.5 gm Injection 4. 200 100 100 5 gm In Sodium Chloride 0 .9 % 100 ml 100 ml @ 100 mls/hr IVPB Q8H [facility] Rx#: [id number] Intake ml 200 320 240 Oral 120 Output: Output ml 2250 3475 550 Reyes 2250 3475 550 Other: Oral Intake Size Oral Scant Output stool Nonnumeric/ Comment Stool medium large small VITAL SIGNS Temp Pulse Resp BP Pulse Ox FiO2 97.1 F 73 16 137/62 97 09/22/21 07:43 09/22/21 10:50 09/22/21 10:50 09/22/21 07:43 09/22/21 10:50 Radiology-Impressions: See radiology reports in electronic medical record. ASSESSMENT/PLAN Reviewed Vitals, Medications, Labs and Notes. 1) acute on chronic diastolic CHF -Diuresed another about 5L. Has been off oxygen for 2 days. Euvolemic. 2) Afib -Permanent. Rates controlled. Anticoagulation with warfarin. 3) Moderate AI and mild-mod MR -Repeat echo at [facility] in a couple months. Patient states she's going to call for an appointment today. Patient stable to be discharged from cardiac perspective. Initial Admit Date: 09/16/21 Current Date: 09/22/21 Current Registration Status: ADM IN Electronically Generated By:XIOMARA OLMOS MD Generated Date/Time: 09/22/21 114 Electronically Signed By: XIOMARA OLMOS MD Signed Date/Time 09/22/211146 Co Signed Electronically By: Ebenezer Signed Date/Time: CC: [facility] Work Phone: 1(422) 377-450407-28-2022 Progress note Author XIOMARA OLMOS [facility] September 22, 2021 11:47am Note Date/Time September 22, 2021 11:4 5am [facility] [address] [place] [address] HEALTH INFORMATION MANAGEMENT PROGRESS NOTE : [id number] Signed Patient: IVON WISEMAN Acct:[id number] MRUN: [id number] : 1955 Sex: F Loc: ICU AD M Date: 09/16/21 Room/Bed: 352-A DISC Date: CARDIOLOGY PROGRESS NOTE THIS DOCUMENT HAS BEEN CREATED USING VOICE RECOGNITION SOFTWARE AND MAY CONTAIN GRAMMATICAL, SYNTAX, AND TYPOGRAPHICAL ERRORS. Current Date: 09/22/21 IVON WISEMAN was admitted to MEDICAL SURGICAL service into room 352 on 09/16/21 at 16:17 for complaints of UTI. CC: F/U CHF S: Patient states she feels much better today. No chest pain or pressure. Review of Systems General: Denies: Fever Cardiovascular: Denies: Chest Pain-Sharp, Chest Pain-Heavy, Orthopnea, Short of Breath Cardiology Objective Findings Sepsis focused exam performed?: No General: Yes: Alert, Oriented Lungs: Yes: Clear to auscultation, Normal air movement Cardiovascular: Yes: Irregular rate, Normal S2, Normal S1 Neurological: Yes: Speech Clear Psych/Mental Status: Yes: Mental status NL Vitals and I&O: 09/21/21 09/21/21 09/22/21 11:59 23:59 11:59 Weight 259 lb 4.8 oz Intake: IV Intake 200 100 100 Zosyn 4.5 gm Injection 4. 200 100 100 5 gm In Sodium Chloride 0 .9 % 100 ml 100 ml @ 100 mls/hr IVPB Q8H [facility] Rx#: [id number] Intake ml 200 320 240 Oral 120 Output: Output ml 2250 3475 550 Reyes 2250 3475 550 Other: Oral Intake Size Oral Scant Output stool Nonnumeric/ Comment Stool medium large small VITAL SIGNS Temp Pulse Resp BP Pulse Ox FiO2 97.1 F 73 16 137/62 97 09/22/21 07:43 09/22/21 10:50 09/22/21 10:50 09/22/21 07:43 09/22/21 10:50 Radiology-Impressions: See radiology reports in electronic medical record. ASSESSMENT/PLAN Reviewed Vitals, Medications, Labs and Notes. 1) acute on chronic diastolic CHF -Diuresed another about 5L. Has been off oxygen for 2 days. Euvolemic. 2) Afib -Permanent. Rates controlled. Anticoagulation with warfarin. 3) Moderate AI and mild-mod MR -Repeat echo at [facility] in a couple months. Patient states she's going to call for an appointment today. Patient stable to be discharged from cardiac perspective. Initial Admit Date: 09/16/21 Current Date: 09/22/21 Current Registration Status: ADM IN Electronically Generated By:XIOMARA OLMOS MD Generated Date/Time: 09/22/21 1142 Electronically Signed By: XIOMARA OLMOS MD Signed Date/Time 09/22/21 1147 Co Signed Electronically By: Co Signed Date/Time: CC: [facility] Work Phone: [phone]) 647-210307-28-2022 [facility] [address] [place] [address] HEALTH INFORMATION MANAGEMENT DISCHARGE SUMMARY : [id number] Signed Patient: IVON WISEMAN Acct:[id number] MRUN : [id number] : 1955 Sex: F Loc: ICU ADM Date: Room/Bed: 352-A DISC Date: - Hospital Course Events Since Admission: IVON WISEMAN was admitted to MEDICAL SURGICAL service into room 352 on 09/16/21 at 16:17 from Emergency Dept for complaints of UTI. Laboratory and diagnostic testing has been reviewed. The patient was seen, evaluated and found to be appropriate for discharge. Reason For Visit: UTI Hospital Course: Patient is a 65f who presented to [facility] ED on 09/16/21 for chills that started day prior to admission. she also had R sided back pain, nausea, lightheadedness, presyncope. In the ED, patient received with bp 120/65, hr 124, rr 18, o2 sat 96%, temp 103.1. wbc 10.5. crea 1.37. ua showed nitrite positive, leuks 2+, wbc 50-100, bacteria 3+, blood 50. covid rapid negative. patient given fluids and abx. patient admitted to med surg floor for sepsis secondary to pyelonephritis, afib rvr, chao. however overnight, patient immediately became more ill despite broadening abx and attempting to stabilize hypotension with fluid boluses. she required transfer to icu for septic shock treated with levophed, afib rvr, and worsening chao. her bp slowly improved, she was weaned off levophed. home blood presurre medications were slowly restarted. patient started having more shortness of breath when laying flat, wheezing. she was treated for mild copd exacerbation with scheduled breathing tx and inhalers. echo showed ef 55%, moderate AR, mild to mod MR, mild TR, dilated IVC. cardiology was consulted. diuretics were given. patient's blood cultures came back negative. urine culture came back positive for ecoli. she had diarrhea characterized as soft/mushy stools. stool culture came back negative. hospital course also complicated by supratherapeutic inr. this improved to normal range at 2.46. patient's breathing slowly improved and she was weaned off to room air. physical therapy consulted. on the day of discharge, i saw patient face to face. patient was discharged in a stable condition. discharge time >30min Hospital Treatment: 09/22/21 04:25 09/22/21 04:25 Laboratory Results - last 24 hr 09/22/21 04:25: Neutrophils (Manual) 64, Lymphocytes (Manual) 33, Monocytes (Manual) 1 L, Eosinophils (Manual) 0 L, Basophils (Manual) 1, Atypical Lymphocytes 1 09/22/21 04:25: Magnesium 1.7 09/22/21 04:25: PT 22.7 H, INR 2.46 09/22/21 04:25: WBC 7.5, RBC 2.95 L, Hgb 9.1 L, Hct 28.7 L, MCV 97.3, MCH 30.8, MCHC 31.7 L, RDW 14.9 H, Plt Count 198, MPV 9.9, Neut % (Auto) 64.0, Lymph % (Auto) 33.0, [place] % (Auto) 1.0 L, Eos % (Auto) 0 L, Baso % (Auto) 1.0, Abs Immat Gran (man) 0, Absolute Neuts (auto) 4.80, Absolute Lymphs (auto) 2.60, Absolute Monos (auto) 0.10 L, Absolute Eos (auto) 0, Absolute Basos (auto) 0.08, Immature Gran % 0 09/22/21 04:25: Sodium 142, Potassium 3.8, Chloride 105, Total Carbon Dioxide 30, Anion Gap 10.8, BUN 23.2, Creatinine 1.14 H, Est GFR (MDRD) Af Amer 57 A, Est GFR (MDRD) Non-Af 47 A, BUN/Creatinine Ratio 20, Glucose 128 H, Calcium 8.6 Intake Output 09/19/21 09/20/21 09/21/21 09/22/21 23:59 23:59 23:59 23:59 Intake Total 1065 1100 820 340 Output Total 3050 5100 5725 550 Balance -1984 -4000 -4905 -210 Weight 250 lb 4.8 oz 261 lb 8 oz 259 lb 4.8 oz See radiology reports in electronic medical record. - Discharge Information Discharge Diagnosis:: Assessment. Septic shock. pyelonephritis, ecoli. chao, likely vasomotor nephropathy, no prior baseline to compare with. persistent afib in rvr, on chronic anticoagulation, supratherapeutic inr; hx of cardioversion in 2010. hx of dvt and pe. acute hypxoic respiratory failue. copd in mild exacerbation noted since 09/17. acute on chronic diastolic HF exacerbation. m od [place], MR mild to mod. covid ruled out. anemia, normocytic, stable. thrombocytopenia, new, resolv ed. HTN. HLD. chronic pain on chronic prescribed opioiod. depression. morbid obesity Disposition: 01 HOME / SELF CARE / HOMELESS Condition: Good Assessment: Assessment Septic shock pyelonephritis, ecoli chao, likely vasomotor nephropathy, no prior baseline to compare with persistent afib in rvr, on chronic anticoagulation, supratherapeutic inr; hx of cardioversion in 2010 hx of dvt and pe acute hypxoic respiratory failue copd in mild exacerbation noted since 09/17 acute on chronic diastolic HF exacerbation mod AR, MR mild to mod covid ruled out anemia, normocytic, stable thrombocytopenia, new, resolved HTN HLD chronic pain on chronic prescribed opioiod depression morbid obesity Plan of Treatment: P (more content not included)...[facility]07-28-2022 Discharge summary Author ADRIANE WAYNE [facility] September 22, 2021 11:38am Note Date/Time September 22, 2021 11:3 8am [facility] [address] [place] [id number] HEALTH INFORMATION MANAGEMENT DISCHARGE SUMMARY : [id number] Signed Patient: IVON WISEMAN Acct:[id number] MRUN: [id number] : 1955 Sex: F Loc: ICU AD M Date: 09/16/21 Room/Bed: 352-A DISC Date: - Hospital Course Events Since Admission: IVON WISEMAN was admitted to MEDICAL SURGICAL service into room 352 on 09/16/21 at 16:17 from Emergency Dept for complaints of UTI. Laboratory and diagnostic testing has been reviewed. The patient was seen, evaluated and foundto be appropriate for discharge. Reason For Visit: UTI Hospital Course: Patient is a 65f who presented to [facility] ED on 09/16/21 for chills that started dayprior to admission. she also had R sided back pain, nausea, lightheadedness, presyncope. In the ED, patient received with bp 120/65, hr 124, rr 18, o2 sat 96%, temp 103.1. wbc 10.5. crea 1.37. ua showed nitrite positive, leuks 2+, wbc 50-100, bacteria 3+, blood 50. covid rapid negative. patient given fluids and abx. patient admitted to med surg floor for sepsis secondary to pyelonephritis, afib rvr, choa. however overnight, patient immediately became more ill despite broadening abx and attempting to stabilize hypotension with fluid boluses. she required transfer to icu for septic shock treated with levophed, afib rvr, and worsening chao. her bp slowly improved, she was weaned off levophed. home blood presurre medications were slowly restarted. patient started having more shortness of breath when laying flat, wheezing. she was treated for mild copd exacerbation with scheduled breathing tx and inhalers. echo showed ef 55%, moderate AR, mild to mod MR, mild TR, dilated IVC. cardiology was consulted. diuretics were given. patient's blood cultures came back negative. urine culturecame back positive for ecoli. she had diarrhea characterized as soft/mushy stools. stool culture came back negative. hospital course also complicated by supratherapeutic inr. this improved to normal range at 2.46. patient's breathingslowly improved and she was weaned off to room air. physical therapy consulted. on the day of discharge, i saw patient face to face. patient was discharged in astable condition. discharge time >30min Hospital Treatment: 09/22/21 04:25 09/22/21 04:25 Laboratory Results - last 24 hr 09/22/21 04:25: Neutrophils (Manual) 64, Lymphocytes (Manual) 33, Monocytes (Manual) 1 L, Eosinophils (Manual) 0 L, Basophils (Manual) 1, Atypical Lymphocytes1 09/22/21 04:25: Magnesium 1.7 09/22/21 04:25: PT 22.7 H, INR 2.46 09/22/21 04:25: WBC 7.5, RBC 2.95 L, Hgb 9.1 L, Hct 28.7 L, MCV 97.3, MCH 30.8, MCHC 31.7 L, RDW 14.9 H, Plt Count 198, MPV 9.9, Neut % (Auto) 64.0, Lymph % (Auto) 33.0, [place] % (Auto) 1.0 L, Eos % (Auto) 0 L, Baso % (Auto) 1.0, Abs ImmatGran (man) 0, Absolute Neuts (auto) 4.80, Absolute Lymphs (auto) 2.60, Absolute Monos (auto) 0.10 L, Absolute Eos (auto) 0, Absolute Basos (auto) 0.08, ImmatureGran % 0 09/22/21 04:25: Sodium 142, Potassium 3.8, Chloride 105, Total Carbon Dioxide 30, Anion Gap 10.8, BUN 23.2, Creatinine 1.14 H, Est GFR (MDRD) Af Amer 57 A, Est GFR (MDRD) Non-Af 47 A, BUN/Creatinine Ratio 20, Glucose 128 H, Calcium 8.6 Intake & Output 09/19/21 09/20/21 09/21/21 09/22/21 23:59 23:59 23:59 23:59 Intake Total 1065 1100 820 340 Output Total 3051 5100 5772 550 Balance -1985 -4000 -4905 -210 Weight 250 lb 4.8 oz 261 lb 8 oz 259 lb 4.8 oz See radiology reports in electronic medical record. - Discharge Information Discharge Diagnosis:: Assessment. Septic shock. pyelonephritis, ecoli. chao, likely vasomotor nephropathy, no prior baseline to compare with. persistent afib in rvr, on chronic anticoagulation, supratherapeutic inr; hx of cardioversion in 2010. hx of dvt and pe. acute hypxoic respiratory failue. copd in mild exacerbation noted since 09/17. acute on chronic diastolic HF exacerbation. mod AR, MR mild to mod. covid ruled out. anemia, normocytic, stable. thrombocytopenia, new, resolved. HTN. HLD. chronic pain on chronic prescribed opioiod. depression. morbid obesity Disposition: HOME / SELF CARE / HOMELESS Condition: Good Assessment: Assessment Septic shock pyelonephritis, ecoli chao, likely vasomotor nephropathy, no prior baseline to compare with persistent afib in rvr, on chronic anticoagulation, supratherapeutic inr; hx of cardioversion in 2010 hx of dvt and pe acute hypxoic respiratory failue copd in mild exacerbation noted since 09/17 acute on chronic diastolic HF exacerbation mod AR, MR mild to mod covid ruled out anemia, normocytic, stable thrombocytopenia, new, resolved HTN HLD chronic pain on chronic prescribed opioiod depression morbid obesity Plan of Treatment: Plan Take Bactrim twice daily for 7 more days Take probiotics twice daily for the next 2 weeks Resume all other home meds. Have INR check Recommend outpatient follow-up with PCP Recommend outpatient follow-up with cardiology Patient will need repeat echo after discharge. Anticipate moderate AI and mild/moderate MR will improve after diuretics were given - Discharge Instructions Referrals: SAKINA CORRAL [Primary Care Provider] - Prescriptions & home med reconciliation (Convert): Saccharomyces Boulardii [Florastor 250 mg Capsule] 500 mg PO BID 14 Days #56 capsule Sulfamethoxazole/Trimethoprim [Sulfamethoxazole-Tmp Ds Tablet] 1 each PO BID 7 Days #14 tablet Special Instructions: Activity Level For Discharge:: As Tolerated Discharge Diet: Cardiac, Low Sodium Weight Bearing Status: Weight Bearing as Tolerated Electronically Generated By:ADRIANE WAYNE MD Generated Date/Time: 09/22/211137 Electronically Signed By: ADRIANE WAYNE MD Signed Date/Time 09/22/21 113 Co Signed Electronically By: Co Signed Date/Time: CC: XIOMARA OLMOS MD; ELLIS, [facility] Work Phone: [phone]) 650-169207-28-2022 Discharge summary Author ADRIANE WAYNE [facility] September 22, 2021 11:38am Note Date/Time September 22, 2021 11:3 8am [facility] [address] [place] [address] HEALTH INFORMATION MANAGEMENT DISCHARGE SUMMARY : [id number] Signed Patient: IVON WISEMAN Acct:[id number] MRUN: [id number] : 1955 Sex: F Loc: ICU AD M Date: 09/16/21 Room/Bed: 352-A DISC Date: - Hospital Course Events Since Admission: IVON WISEMAN was admitted to MEDICAL SURGICAL service into room 352 on 09/16/21 at 16:17 from Emergency Dept for complaints of UTI. Laboratory and diagnostic testing has been reviewed. The patient was seen, evaluated and foundto be appropriate for discharge. Reason For Visit: UTI Hospital Course: Patient is a 65f who presented to [facility] ED on 09/16/21 for chills that started dayprior to admission. she also had R sided back pain, nausea, lightheadedness, presyncope. In the ED, patient received with bp 120/65, hr 124, rr 18, o2 sat 96%, temp 103.1. wbc 10.5. crea 1.37. ua showed nitrite positive, leuks 2+, wbc 50-100, bacteria 3+, blood 50. covid rapid negative. patient given fluids and abx. patient admitted to med surg floor for sepsis secondary to pyelonephritis, afib rvr, chao. however overnight, patient immediately became more ill despite broadening abx and attempting to stabilize hypotension with fluid boluses. she required transfer to icu for septic shock treated with levophed, afib rvr, and worsening chao. her bp slowly improved, she was weaned off levophed. home blood presurre medications were slowly restarted. patient started having more shortness of breath when laying flat, wheezing. she was treated for mild copd exacerbation with scheduled breathing tx and inhalers. echo showed ef 55%, moderate AR, mild to mod MR, mild TR, dilated IVC. cardiology was consulted. diuretics were given. patient's blood cultures came back negative. urine culturecame back positive for ecoli. she had diarrhea characterized as soft/mushy stools. stool culture came back negative. hospital course also complicated by supratherapeutic inr. this improved to normal range at 2.46. patient's breathingslowly improved and she was weaned off to room air. physical therapy consulted. on the day of discharge, i saw patient face to face. patient was discharged in astable condition. discharge time >30min Hospital Treatment: 09/22/21 04:25 09/22/21 04:25 Laboratory Results - last 24 hr 09/22/21 04:25: Neutrophils (Manual) 64, Lymphocytes (Manual) 33, Monocytes (Manual) 1 L, Eosinophils (Manual) 0 L, Basophils (Manual) 1, Atypical Lymphocytes1 09/22/21 04:25: Magnesium 1.7 09/22/21 04:25: PT 22.7 H, INR 2.46 09/22/21 04:25: WBC 7.5, RBC 2.95 L, Hgb 9.1 L, Hct 28.7 L, MCV 97.3, MCH 30.8, MCHC 31.7 L, RDW 14.9 H, Plt Count 198, MPV 9.9, Neut % (Auto) 64.0, Lymph % (Auto) 33.0, [place] % (Auto) 1.0 L, Eos % (Auto) 0 L, Baso % (Auto) 1.0, Abs ImmatGran (man) 0, Absolute Neuts (auto) 4.80, Absolute Lymphs (auto) 2.60, Absolute Monos (auto) 0.10 L, Absolute Eos (auto) 0, Absolute Basos (auto) 0.08, ImmatureGran % 0 09/22/21 04:25: Sodium 142, Potassium 3.8, Chloride 105, Total Carbon Dioxide 30, Anion Gap 10.8, BUN 23.2, Creatinine 1.14 H, Est GFR (MDRD) Af Amer 57 A, Est GFR (MDRD) Non-Af 47 A, BUN/Creatinine Ratio 20, Glucose 128 H, Calcium 8.6 Intake & Output 09/19/21 09/20/21 09/21/21 09/22/21 23:59 23:59 23:59 23:59 Intake Total 1065 1100 820 340 Output Total 3050 5100 5731 550 Balance -1984 -4000 -4905 -210 Weight 250 lb 4.8 oz 261 lb 8 oz 259 lb 4.8 oz See radiology reports in electronic medical record. - Discharge Information Discharge Diagnosis:: Assessment. Septic shock. pyelonephritis, ecoli. chao, likely vasomotor nephropathy, no prior baseline to compare with. persistent afib in rvr, on chronic anticoagulation, supratherapeutic inr; hx of cardioversion in 2010. hx of dvt and pe. acute hypxoic respiratory failue. copd in mild exacerbation noted since 09/17. acute on chronic diastolic HF exacerbation. mod AR, MR mild to mod. covid ruled out. anemia, normocytic, stable. thrombocytopenia, new, resolved. HTN. HLD. chronic pain on chronic prescribed opioiod. depression. morbid obesity Disposition: 01 HOME / SELF CARE / HOMELESS Condition: Good Assessment: Assessment Septic shock pyelonephritis, ecoli chao, likely vasomotor nephropathy, no prior baseline to compare with persistent afib in rvr, on chronic anticoagulation, supratherapeutic inr; hx of cardioversion in 2010 hx of dvt and pe acute hypxoic respiratory failue copd in mild exacerbation noted since 09/17 acute on chronic diastolic HF exacerbation mod AR, MR mild to mod covid ruled out anemia, normocytic, stable thrombocytopenia, new, resolved HTN HLD chronic pain on chronic prescribed opioiod depression morbid obesity Plan of Treatment: Plan Take Bactrim twice daily for 7 more days Take probiotics twice daily for the next 2 weeks Resume all other home meds. Have INR check Recommend outpatient follow-up with PCP Recommend outpatient follow-up with cardiology Patient will need repeat echo after discharge. Anticipate moderate AI and mild/moderate MR will improve after diuretics were given - Discharge Instructions Referrals: SAKINA CORRAL [Primary Care Provider] - Prescriptions & home med reconciliation (Convert): Saccharomyces Boulardii [Florastor 250 mg Capsule] 500 mg PO BID 14 Days #56 capsule Sulfamethoxazole/Trimethoprim [Sulfamethoxazole-Tmp Ds Tablet] 1 each PO BID 7 Days #14 tablet Special Instructions: Activity Level For Discharge:: As Tolerated Discharge Diet: Cardiac, Low Sodium Weight Bearing Status: Weight Bearing as Tolerated Electronically Generated By:ADRIANE WAYNE MD Generated Date/Time: 09/22/211137 Electronically Signed By: ADRIANE WAYNE MD Signed Date/Time 09/22/211137 Co Signed Electronically By: Co Signed Date/Time: CC: XIOMARA OLMOS MD; RUDDY CORRALSPHARESDINH [facility] Work Phone: 1(694) 618-310707-28-2022 Evaluation note* [facility] Authored September 22, 2021 11:3 8am Assessment Septic shock pyelonephritis, ecoli chao, likely vasomotor nephropathy, no prior baseline to compare with persistent afib in rvr, on chronic anticoagulation, supratherapeutic inr; hx of cardioversion in 2010 hx of dvt and pe acute hypxoic respiratory failue copd in mild exacerbation noted since 09/17 acute on chronic diastolic HF exacerbation mod AR, MR mild to mod covid ruled out anemia, normocytic, stable thrombocytopenia, new, resolved HTN HLD chronic pain on chronic prescribed opioiod depression morbid obesity [facility] Work Phone: 1([phone]) 209-753107-28-2022 Progress note Author XIOMARA OLMOS [facility] September 22, 2021 11:47am Note Date/Time September 22, 2021 11:4 5am [facility] [address] [place] [address] HEALTH INFORMATION MANAGEMENT PROGRESS NOTE : [id number] Signed Patient: IVON WISEMAN Acct:[id number] MRUN: [id number] : 1955 Sex: F Loc: ICU AD M Date: 09/16/21 Room/Bed: 352-A DISC Date: CARDIOLOGY PROGRESS NOTE THIS DOCUMENT HAS BEEN CREATED USING VOICE RECOGNITION SOFTWARE AND MAY CONTAIN GRAMMATICAL, SYNTAX, AND TYPOGRAPHICAL ERRORS. Current Date: 09/22/21 IVON WISEMAN was admitted to MEDICAL SURGICAL service into room 352 on 09/16/21 at 16:17 for complaints of UTI. CC: F/U CHF S: Patient states she feels much better today. No chest pain or pressure. Review of Systems General: Denies: Fever Cardiovascular: Denies: Chest Pain-Sharp, Chest Pain-Heavy, Orthopnea, Short of Breath Cardiology Objective Findings Sepsis focused exam performed?: No General: Yes: Alert, Oriented Lungs: Yes: Clear to auscultation, Normal air movement Cardiovascular: Yes: Irregular rate, Normal S2, Normal S1 Neurological: Yes: Speech Clear Psych/Mental Status: Yes: Mental status NL Vitals and I&O: 09/21/21 09/21/21 09/22/21 11:59 23:59 11:59 Weight 259 lb 4.8 oz Intake: IV Intake 200 100 100 Zosyn 4.5 gm Injection 4. 200 100 100 5 gm In Sodium Chloride 0 .9 % 100 ml 100 ml @ 100 mls/hr IVPB Q8H [facility] Rx#: [id number] Intake ml 200 320 240 Oral 120 Output: Output ml 2250 3475 550 Reyes 2250 3475 550 Other: Oral Intake Size Oral Scant Output stool Nonnumeric/ Comment Stool medium large small VITAL SIGNS Temp Pulse Resp BP Pulse Ox FiO2 97.1 F 73 16 137/62 97 09/22/21 07:43 09/22/21 10:50 09/22/21 10:50 09/22/21 07:43 09/22/21 10:50 Radiology-Impressions: See radiology reports in electronic medical record. ASSESSMENT/PLAN Reviewed Vitals, Medications, Labs and Notes. 1) acute on chronic diastolic CHF -Diuresed another about 5L. Has been off oxygen for 2 days. Euvolemic. 2) Afib -Permanent. Rates controlled. Anticoagulation with warfarin. 3) Moderate AI and mild-mod MR -Repeat echo at [facility] in a couple months. Patient states she's going to call for an appointment today. Patient stable to be discharged from cardiac perspective. Initial Admit Date: 09/16/21 Current Date: 09/22/21 Current Registration Status: ADM IN Electronically Generated By:XIOMARA OLMOS MD Generated Date/Time: 09/22/21 1142 Electronically Signed By: XIOMARA OLMOS MD Signed Date/Time 09/22/21 1147 Co Signed Electronically By: Co Signed Date/Time: CC: [facility] Work Phone: [phone]) 728-574007-27-2022 Progress note Author ARDIANE WAYNE [facility] September 21, 2021 1:07pm Note Date/Time September 21, 2021 1:07 pm [facility] [address] [place] [id number] HEALTH INFORMATION MANAGEMENT PROGRESS NOTE : [phone] Signed Patient: IVON WISEMAN Acct:[id number] MRUN: [id number] : 1955 Sex: F Loc: ICU AD M Date: 09/16/21 Room/Bed: 352-A DISC Date: Subjective Assessment Date Of Service: 09/21/21 Events Since Admission: IVON WISEMAN was admitted to MEDICAL SURGICAL service into room 352 on 09/16/21 at 16:17 for complaints of UTI. The patient's laboratory testing and diagnostic testing has been reviewed. Subjective Note: Past 24 hours, net negative -4 L. She has been off oxygen starting yesterday. No overnight acute events. Patient seen today, reports breathing improved. Denies leg swelling currently Discussed INR is high, will hold off discharge Patient nauseated also received Zofran Denies chest pain, palpitations. No fevers or chills Condition: Stable General: Confirms: Weakness, Fatigue. Denies: Fever, Chills, Sweats, Weight Gain, Weight Loss, Other ENT: Denies: Earache, Ear Discharge, Decreased Hearing, Tinnitus, Nose Congestion, Nose Drainage, Nasal Ulcers, Epitaxis, Sore Throat, Throat Swelling,Hoarseness, Loss Of Voice, Tongue Pain, Tongue Swelling, Lip Swelling, Dental Pain, Cervical, Other Respiratory: Confirms: Shortness of Breath (Improved), Dyspnea on Exertion. Denies: Cough, Wheezing, Sputum Production, Hemoptysis, Pleuritic Pain, Other Cardiovascular: Confirms: Orthopnea (Improved ), Short of Breath (improved), Dyspnea on Exertion. Denies: Chest Pain-Sharp, Chest Pain-Heavy, Paroxysmal Noc. Dyspnea, Edema, Palpitations, Light Headedness, Syncope, Diaphoresis, Claudication, Edema, Other Gastrointestinal: Confirms: Nausea. Denies: Vomiting, Abdominal Pain, Diarrhea,Constipation, Melena, Hematochezia, Other Genitourinary: Denies: Dysuria, Frequency, Incontinence, Hematuria, Retention, Other Musculoskeletal: Denies: Neck Pain, Shoulder Pain, Arm Pain, Back Pain, Hand Pain, Leg Pain, Foot Pain, Other Neurological: Confirms: Weakness. Denies: Numbness, Incoordination, Change in Speech, Confusion, Seizures, Other Objective Findings General: Yes: Alert, Oriented (X3), Cooperative/Pleasant, Mild distress HEENT: Yes: Atraumatic, PERRLA, Mucous membr. moist/pink, EOMI. No: Vision Impaired, Hearing Impaired Neck: Yes: Supple. No: JVD Lungs: Yes: Unlabored, Diminished (Basis). No: Exibits Shortness of Mandy, Pursed Lip Breathing, Use of Accessory Muscles, Retracting Cardiovascular: Yes: Regular rate, Normal S2, Normal S1, No murmurs, Geriatric Assistant Rhythm (Sinus Rhythm). No: Gallops, Rubs, Ectopy Abdomen: Yes: Bowel Sounds X4, Soft, No Tenderness, Flatus. No: Hepatospenomegaly, Masses, Nausea/Vomiting, Emesis Present, Constipation, Diarrhea Genitourinary/Rectal: Yes: Deferred-Not Relevant Extremities: Yes: Normal pulses. No: Clubbing, Cyanosis, No tenderness/swelling, Mottling noted Skin: No: Rashes, Skin Breakdown, Significant lesions, Open Wound Present Neurological: Yes: Speech Clear, Normal tone, Sensation intact, Cognitive Ability Intact Psych/Mental Status: Yes: Mental status NL, Mood Appropriate. No: Hallucinations Vitals and I&O: Vital Signs Temperature 97.3 F 09/21/21 08:14 Pulse Rate 88 09/21/21 10:36 Respiratory Rate 20 09/21/21 10:36 Blood Pressure 160/86 09/21/21 08:52 O2 Sat by Pulse Oximetry(%) 97 09/21/21 10:36 FiO2 - Manual Entry Intake & Output 09/20/21 09/21/21 09/21/21 23:59 11:59 23:59 Intake Total 500 300 Output Total 4400 2250 Balance -3900 -1950 Intake: IV Intake 100 100 Zosyn 4.5 gm Injection 4. 100 100 5 gm In Sodium Chloride 0 .9 % 100 ml 100 ml @ 100 mls/hr IVPB Q8H [facility] Rx#: [id number] Intake ml 400 200 Output: Output ml 4400 2250 Reyes 4400 2250 Other: Output Urine Nonnumeric/ Comment Stool small Output stool Nonnumeric/ Comment Stool large Laboratory-Last 48 hrs: 09/21/21 04:35 09/21/21 04:35 Laboratory Results-last 24 hrs 09/20/21 06:06: Creatinine 1.11 H, Est GFR (MDRD) Af Amer 59 A, Est GFR (MDRD) Non-Af 49 A, Glucose 141 H 09/20/21 06:06: RBC 2.69 L, Hgb 8.6 L, Hct 26.2 L, MCH 32.0 H, MCHC 32.8 L, RDW 14.8 H, Plt Count 139 L, MPV 10.6 H, Neut % (Auto) 74.3 H, Absolute Neuts (auto)5.54 H 09/20/21 06:06: PT 32.0 H 09/21/21 04:35: Creatinine 1.05 H, Est GFR (MDRD) Non-Af 52 A, Glucose 118 H 09/21/21 04:35: RBC 2.96 L, Hgb 9.3 L, Hct 28.2 L, MCH 31.4 H, RDW 14.9 H, Abs Immat Gran (man) 0.19 H, Absolute Monos (auto) 0.90 H, Immature Gran % 2.50 H 09/21/21 04:35: PT 48.1 H, INR 5.46 H* Radiology-Impressions: See radiology reports in electronic medical record. Plan/Treatment Plan: Septic shock pyelonephritis, ecoli chao, likely vasomotor nephropathy, no prior baseline to compare with persistent afib in rvr, on chronic anticoagulation, supratherapeutic inr; hx of cardioversion in 2010 hx of dvt and pe covid ruled out acute hypxoic respiratory failue copd in mild exacerbation noted since 09/17 pulmonary edema, likely from fluid resuscitation. r/o underlying HF. no hx of chf per records. mod AR, MR mild to mod anemia, normocytic, stable thrombocytopenia, new HTN HLD chronic pain on chronic prescribed opioiod depression morbid obesity plan continue Zosyn home metoprolol. continue telemetry losatan increase to 50mg daily give another dose of lasix today. i/o, daily wts keep k close to 4, mg close to 2. give mg cardiology following, discussedc ase home inhalers. breathing tx follow hg. no signs of overt blood loss. stabilizing at the range of 9 inr supratherapeutic at 5.46 home statin home norco, pramipexole, trazodone pt following dvt ppx: home warfarin gi ppx: pepcid, renally dose not yet ready for discharge. supratherapeutic inr. nauseated. ongoing diuresis. New Orders: New Orders-Lab 09/21/21 04:35 Basic Metabolic Panel [CHM] DAILY@0400 CBC w/Auto Differential [HEM] DAILY@0400 INR [PT] [COA] DAILY@0400 09/22/21 04:00 Basic Metabolic Panel [CHM] DAILY@0400 CBC w/Auto Differential [HEM] DAILY@0400 INR [PT] [COA] DAILY@0400 Electronically Generated By:ADRIANE WAYNE MD Generated Date/Time: 09/21/21 130 Electronically Signed By: ADRIANE WAYNE MD Signed Date/Time 09/21/21 130 Co Signed Electronically By: Co Signed Date/Time: CC: [facility] Work Phone: [phone] Progress note Author ADRIANE WAYNE [facility] September 21, 2021 1:07pm Note Date/Time September 21, 2021 1:07 pm [facility] [address] [place] [address] HEALTH INFORMATION MANAGEMENT PROGRESS NOTE : [id number] Signed Patient: IVON WISEMAN Acct:[id number] MRUN: [id number] : 1955 Sex: F Loc: ICU AD M Date: 09/16/21 Room/Bed: 352-A DISC Date: Subjective Assessment Date Of Service: 09/21/21 Events Since Admission: IVON WISEMAN was admitted to MEDICAL SURGICAL service into room 352 on 09/16/21 at 16:17 for complaints of UTI. The patient's laboratory testing and diagnostic testing has been reviewed. Subjective Note: Past 24 hours, net negative -4 L. She has been off oxygen starting yesterday. No overnight acute events. Patient seen today, reports breathing improved. Denies leg swelling currently Discussed INR is high, will hold off discharge Patient nauseated also received Zofran Denies chest pain, palpitations. No fevers or chills Condition: Stable General: Confirms: Weakness, Fatigue. Denies: Fever, Chills, Sweats, Weight Gain, Weight Loss, Other ENT: Denies: Earache, Ear Discharge, Decreased Hearing, Tinnitus, Nose Congestion, Nose Drainage, Nasal Ulcers, Epitaxis, Sore Throat, Throat Swelling,Hoarseness, Loss Of Voice, Tongue Pain, Tongue Swelling, Lip Swelling, Dental Pain, Cervical, Other Respiratory: Confirms: Shortness of Breath (Improved), Dyspnea on Exertion. Denies: Cough, Wheezing, Sputum Production, Hemoptysis, Pleuritic Pain, Other Cardiovascular: Confirms: Orthopnea (Improved ), Short of Breath (improved), Dyspnea on Exertion. Denies: Chest Pain-Sharp, Chest Pain-Heavy, Paroxysmal Noc. Dyspnea, Edema, Palpitations, Light Headedness, Syncope, Diaphoresis, Claudication, Edema, Other Gastrointestinal: Confirms: Nausea. Denies: Vomiting, Abdominal Pain, Diarrhea,Constipation, Melena, Hematochezia, Other Genitourinary: Denies: Dysuria, Frequency, Incontinence, Hematuria, Retention, Other Musculoskeletal: Denies: Neck Pain, Shoulder Pain, Arm Pain, Back Pain, Hand Pain, Leg Pain, Foot Pain, Other Neurological: Confirms: Weakness. Denies: Numbness, Incoordination, Change in Speech, Confusion, Seizures, Other Objective Findings General: Yes: Alert, Oriented (X3), Cooperative/Pleasant, Mild distress HEENT: Yes: Atraumatic, PERRLA, Mucous membr. moist/pink, EOMI. No: Vision Impaired, Hearing Impaired Neck: Yes: Supple. No: JVD Lungs: Yes: Unlabored, Diminished (Basis). No: Exibits Shortness of Mandy, Pursed Lip Breathing, Use of Accessory Muscles, Retracting Cardiovascular: Yes: Regular rate, Normal S2, Normal S1, No murmurs, Geriatric Assistant Rhythm (Sinus Rhythm). No: Gallops, Rubs, Ectopy Abdomen: Yes: Bowel Sounds X4, Soft, No Tenderness, Flatus. No: Hepatospenomegaly, Masses, Nausea/Vomiting, Emesis Present, Constipation, Diarrhea Genitourinary/Rectal: Yes: Deferred-Not Relevant Extremities: Yes: Normal pulses. No: Clubbing, Cyanosis, No tenderness/swelling, Mottling noted Skin: No: Rashes, Skin Breakdown, Significant lesions, Open Wound Present Neurological: Yes: Speech Clear, Normal tone, Sensation intact, Cognitive Ability Intact Psych/Mental Status: Yes: Mental status NL, Mood Appropriate. No: Hallucinations Vitals and I&O: Vital Signs Temperature 97.3 F 09/21/21 08:14 Pulse Rate 88 09/21/21 10:36 Respiratory Rate 20 09/21/21 10:36 Blood Pressure 160/86 09/21/21 08:52 O2 Sat by Pulse Oximetry(%) 97 09/21/21 10:36 FiO2 - Manual Entry Intake & Output 09/20/21 09/21/21 09/21/21 23:59 11:59 23:59 Intake Total 500 300 Output Total 4400 2250 Balance -3900 -1950 Intake: IV Intake 100 100 Zosyn 4.5 gm Injection 4. 100 100 5 gm In Sodium Chloride 0 .9 % 100 ml 100 ml @ 100 mls/hr IVPB Q8H [facility] Rx#: [id number] Intake ml 400 200 Output: Output ml 4400 2250 Reyes 4400 2250 Other: Output Urine Nonnumeric/ Comment Stool small Output stool Nonnumeric/ Comment Stool large Laboratory-Last 48 hrs: 09/21/21 04:35 09/21/21 04:35 Laboratory Results-last 24 hrs 09/20/21 06:06: Creatinine 1.11 H, Est GFR (MDRD) Af Amer 59 A, Est GFR (MDRD) Non-Af 49 A, Glucose 141 H 09/20/21 06:06: RBC 2.69 L, Hgb 8.6 L, Hct 26.2 L, MCH 32.0 H, MCHC 32.8 L, RDW 14.8 H, Plt Count 139 L, MPV 10.6 H, Neut % (Auto) 74.3 H, Absolute Neuts (auto)5.54 H 09/20/21 06:06: PT 32.0 H 09/21/21 04:35: Creatinine 1.05 H, Est GFR (MDRD) Non-Af 52 A, Glucose 118 H 09/21/21 04:35: RBC 2.96 L, Hgb 9.3 L, Hct 28.2 L, MCH 31.4 H, RDW 14.9 H, Abs Immat Gran (man) 0.19 H, Absolute Monos (auto) 0.90 H, Immature Gran % 2.50 H 09/21/21 04:35: PT 48.1 H, INR 5.46 H* Radiology-Impressions: See radiology reports in electronic medical record. Plan/Treatment Plan: Septic shock pyelonephritis, ecoli chao, likely vasomotor nephropathy, no prior baseline to compare with persistent afib in rvr, on chronic anticoagulation, supratherapeutic inr; hx of cardioversion in 2010 hx of dvt and pe covid ruled out acute hypxoic respiratory failue copd in mild exacerbation noted since 09/17 pulmonary edema, likely from fluid resuscitation. r/o underlying HF. no hx of chf per records. mod AR, MR mild to mod anemia, normocytic, stable thrombocytopenia, new HTN HLD chronic pain on chronic prescribed opioiod depression morbid obesity plan continue Zosyn home metoprolol. continue telemetry losatan increase to 50mg daily give another dose of lasix today. i/o, daily wts keep k close to 4, mg close to 2. give mg cardiology following, discussedc ase home inhalers. breathing tx follow hg. no signs of overt blood loss. stabilizing at the range of 9 inr supratherapeutic at 5.46 home statin home norco, pramipexole, trazodone pt following dvt ppx: home warfarin gi ppx: pepcid, renally dose not yet ready for discharge. supratherapeutic inr. nauseated. ongoing diuresis. New Orders: New Orders-Lab 09/21/21 04:35 Basic Metabolic Panel [CHM] DAILY@0400 CBC w/Auto Differential [HEM] DAILY@0400 INR [PT] [COA] DAILY@0400 09/22/21 04:00 Basic Metabolic Panel [CHM] DAILY@0400 CBC w/Auto Differential [HEM] DAILY@0400 INR [PT] [COA] DAILY@0400 Electronically Generated By:ADRIANE WAYNE MD Generated Date/Time: 09/21/211301 Electronically Signed By: ADRIANE WAYNE MD Signed Date/Time 09/21/211306 Co Signed Electronically By: Ebenezer Signed Date/Time: CC: [facility] Work Phone: [phone]) [phone] Progress note Author XIOMARA OLMOS [facility] September 21, 2021 12:52pm Note Date/Time September 21, 2021 12:5 1pm [facility] [address] [place] [address] HEALTH INFORMATION MANAGEMENT PROGRESS NOTE : [phone] Signed Patient: IVON WISEMAN Acct:[id number] MRUN: [id number] : 1955 Sex: F Loc: ICU AD M Date: 09/16/21 Room/Bed: 352-A DISC Date: CARDIOLOGY PROGRESS NOTE THIS DOCUMENT HAS BEEN CREATED USING VOICE RECOGNITION SOFTWARE AND MAY CONTAIN GRAMMATICAL, SYNTAX, AND TYPOGRAPHICAL ERRORS. Current Date: 09/21/21 IVON WISEMAN was admitted to MEDICAL SURGICAL service into room 352 on 09/16/21 at 16:17 for complaints of UTI. CC: F/U CHF S: Patient felt nauseous and vomited this morning. Now off oxygen. Review of Systems General: Denies: Fever Cardiovascular: Confirms: Edema. Denies: Chest Pain-Sharp, Chest Pain-Heavy, Orthopnea Cardiology Objective Findings Sepsis focused exam performed?: No General: Yes: Alert, Oriented HEENT: Yes: Atraumatic Lungs: Yes: Normal air movement Cardiovascular: Yes: Irregular rate, Normal S2, Normal S1 Abdomen: Yes: Large/Obese Extremities: Yes: Bilateral Leg Edema Skin: No: Rashes Neurological: Yes: Speech Clear Psych/Mental Status: Yes: Mental status NL Vitals and I&O: 09/20/21 09/21/21 09/21/21 23:59 11:59 23:59 Intake: IV Intake 100 100 Zosyn 4.5 gm Injection 4. 100 100 5 gm In Sodium Chloride 0 .9 % 100 ml 100 ml @ 100 mls/hr IVPB Q8H [facility] Rx#: [id number] Intake ml 400 200 Output: Output ml 4400 2250 Reyes 4400 2250 Other: Output Urine Nonnumeric/ Comment Stool small Output stool Nonnumeric/ Comment Stool large VITAL SIGNS Temp Pulse Resp BP Pulse Ox FiO2 97.3 F 88 20 160/86 97 09/21/21 08:14 09/21/21 10:36 09/21/21 10:36 09/21/21 08:52 09/21/21 10:36 Radiology-Impressions: See radiology reports in electronic medical record. ASSESSMENT/PLAN Reviewed Vitals, Medications, Labs and Notes. 1) Acute on chronic diastolic CHF exac -Net negative 4L in 24hrs. Still has edema on exam. Has been weaned off oxygen. Will give one more dose of IV lasix today. 2) Afib -Permanent. Rates controlled. INR supratherapeutic. 3) Moderat AI and mild-mod MR -Anticipate this improve with diuresis. NEW ORDERS: Medications 09/21/21 12:48 Furosemide [Lasix 20 mg/2 ml Injection] 20 mg IVP ONE ONE Initial Admit Date: 09/16/21 Current Date: 09/21/21 Current Registration Status: ADM IN Electronically Generated By:XIOMARA OLMOS MD Generated Date/Time: 09/21/21 1249 Electronically Signed By: XIOMARA OLMOS MD Signed Date/Time 09/21/21 1252 Co Signed Electronically By: Co Signed Date/Time: CC: [facility] Work Phone: [phone]) [phone] Progress note Author XIOMARA PENNINGTONJOANN [facility] September 21, 2021 12:52pm Note Date/Time September 21, 2021 12:5 1pm [facility] [address] [place] [id number] HEALTH INFORMATION MANAGEMENT PROGRESS NOTE : [phone] Signed Patient: IVON WISEMAN Acct:[id number] MRUN: [id number] : 1955 Sex: F Loc: ICU AD M Date: 09/16/21 Room/Bed: [facility]-A DISC Date: CARDIOLOGY PROGRESS NOTE THIS DOCUMENT HAS BEEN CREATED USING VOICE RECOGNITION SOFTWARE AND MAY CONTAIN GRAMMATICAL, SYNTAX, AND TYPOGRAPHICAL ERRORS. Current Date: 09/21/21 IVON WISEMAN was admitted to MEDICAL SURGICAL service into room 352 on 09/16/21 at 16:17 for complaints of UTI. CC: F/U CHF S: Patient felt nauseous and vomited this morning. Now off oxygen. Review of Systems General: Denies: Fever Cardiovascular: Confirms: Edema. Denies: Chest Pain-Sharp, Chest Pain-Heavy, Orthopnea Cardiology Objective Findings Sepsis focused exam performed?: No General: Yes: Alert, Oriented HEENT: Yes: Atraumatic Lungs: Yes: Normal air movement Cardiovascular: Yes: Irregular rate, Normal S2, Normal S1 Abdomen: Yes: Large/Obese Extremities: Yes: Bilateral Leg Edema Skin: No: Rashes Neurological: Yes: Speech Clear Psych/Mental Status: Yes: Mental status NL Vitals and I&O: 09/20/21 09/21/21 09/21/21 23:59 11:59 23:59 Intake: IV Intake 100 100 Zosyn 4.5 gm Injection 4. 100 100 5 gm In Sodium Chloride 0 .9 % 100 ml 100 ml @ 100 mls/hr IVPB Q8H [facility] Rx#: [id number] Intake ml 400 200 Output: Output ml 4400 2250 Reyes 4400 2250 Other: Output Urine Nonnumeric/ Comment Stool small Output stool Nonnumeric/ Comment Stool large VITAL SIGNS Temp Pulse Resp BP Pulse Ox FiO2 97.3 F 88 20 160/86 97 09/21/21 08:14 09/21/21 10:36 09/21/21 10:36 09/21/21 08:52 09/21/21 10:36 Radiology-Impressions: See radiology reports in electronic medical record. ASSESSMENT/PLAN Reviewed Vitals, Medications, Labs and Notes. 1) Acute on chronic diastolic CHF exac -Net negative 4L in 24hrs. Still has edema on exam. Has been weaned off oxygen. Will give one more dose of IV lasix today. 2) Afib -Permanent. Rates controlled. INR supratherapeutic. 3) Moderat AI and mild-mod MR -Anticipate this improve with diuresis. NEW ORDERS: Medications 09/21/21 12:48 Furosemide [Lasix 20 mg/2 ml Injection] 20 mg IVP ONE ONE Initial Admit Date: 09/16/21 Current Date: 09/21/21 Current Registration Status: ADM IN Electronically Generated By:XIOMARA OLMOS MD Generated Date/Time: 09/21/21 1249 Electronically Signed By: XIOMARA OLMOS MD Signed Date/Time 09/21/21 1252 Co Signed Electronically By: Co Signed Date/Time: CC: [facility] Work Phone: [phone]) [phone] Consult note Author XIOMARA OLMOS [facility] September 20, 2021 3:35pm Note Date/Time September 20, 2021 3:30 pm [facility] [address] [place] [address] HEALTH INFORMATION MANAGEMENT CONSULTATION : [phone] Signed Patient: IVON WISEMAN Acct:[id number] MRUN: [id number] : 1955 Sex: F Loc: ICU AD M Date: 09/16/21 Room/Bed: 352-A DISC Date: CARDIOLOGY CONSULT THIS DOCUMENT HAS BEEN CREATED USING VOICE RECOGNITION SOFTWARE AND MAY CONTAIN GRAMMATICAL, SYNTAX, AND TYPOGRAPHICAL ERRORS. Admission Date: 09/16/21 16:17 Current Date: 09/20/21 Chief Complaint: CHF/AI Referring Physician: Hospitalist HPI: This is a 65-year-old female with history of permanent atrial fibrillation, history of previous ablations in the past, she was admitted for sepsis and UTI. She was found to be in heart failure as well. An echo was ordered that showed moderate aortic regurgitation and I was consulted. She was given a dose of IV Lasix this morning. She is currently on nasal cannula, not on oxygen at home. She denies any chest pain or pressure. She was given IV fluids for sepsis and pyelonephritis. Past cardiac history: Follows [facility] -Hx of Afib ablation, now permanent Afib, on warfarin -No Hx of CAD, denied previous [facility] Allergies/Adverse Reactions: flecainide Allergy (Verified 09/16/21 14:32) Last Vital Signs Temp 97.5 F 09/20/21 08:00 Pulse 74 09/20/21 10:40 Resp 18 09/20/21 10:40 BP 121/52 09/20/21 10:00 Pulse Ox 98 09/20/21 10:40 FiO2 Laboratory Last Values WBC 7.5 K/uL (3.6-10.8) 09/20/21 06:06 RBC 2.69 M/uL (3.83-5.19) L 09/20/21 06:06 Hgb 8.6 g/dL (11.1-13.7) L 09/20/21 06:06 Hct 26.2 % (33.4-46.0) L 09/20/21 06:06 MCV 97.4 fL (81.0-99.0) 09/20/21 06:06 MCH 32.0 pg (27.0-31.0) H 09/20/21 06:06 MCHC 32.8 g/dL (33.0-37.0) L 09/20/21 06:06 RDW 14.8 % (11.5-14.5) H 09/20/21 06:06 Plt Count 139 K/uL (148-402) L 09/20/21 06:06 Plt Count Comment Appear normal 09/18/21 05:47 MPV 10.6 fL (7.4-10.4) H 09/20/21 06:06 Neut % (Auto) 74.3 % (43.0-65.0) H 09/20/21 06:06 Lymph % (Auto) 17.0 % (17.0-45.5) 09/20/21 06:06 [place] % (Auto) 6.7 % (5.5-11.7) 09/20/21 06:06 Eos % (Auto) 1.1 % (0.9-2.9) 09/20/21 06:06 Baso % (Auto) 0.5 % (0.2-1.0) 09/20/21 06:06 Abs Immat Gran (man) 0.03 K/uL (0.00-0.10) 09/20/21 06:06 Absolute Neuts (auto) 5.54 K/uL (2.20-4.80) H 09/20/21 06:06 Absolute Lymphs (auto) 1.30 K/uL (1.30-2.90) 09/20/21 06:06 Absolute Monos (auto) 0.50 K/uL (0.30-0.80) 09/20/21 06:06 Absolute Eos (auto) 0.10 K/uL (0.00-0.20) 09/20/21 06:06 Absolute Basos (auto) 0.04 K/uL (0.00-0.10) 09/20/21 06:06 Immature Gran % 0.40 % (0.00-1.00) 09/20/21 06:06 Neutrophils (Manual) 87 % (43-65) H 09/18/21 05:47 Lymphocytes (Manual) 10 % (17-46) L 09/18/21 05:47 Monocytes (Manual) 3 % (6-12) L 09/18/21 05:47 Eosinophils (Manual) 0 % (1-3) L 09/18/21 05:47 Basophils (Manual) 0 % (0-1) 09/18/21 05:47 PT 32.0 sec (8.9-12.2) H 09/20/21 06:06 INR 3.55 ratio 09/20/21 06:06 Sample Site L radial 09/17/21 06:15 ABG pH 7.312 (7.35-7.45) L 09/17/21 06:15 ABG pCO2 42.0 mmHg (35.0-45.0) 09/17/21 06:15 ABG pO2 40.4 mmHg (80.0-100.0) L 09/17/21 06:15 ABG HCO3 20.8 mmol/L (20.0-26.0) L 09/17/21 06:15 ABG O2 Saturation 72.0 % (93.0-100.0) L* 09/17/21 06:15 ABG Base Excess -5.1 mmol/L (-2.0-2.0) L 09/17/21 06:15 ABG Hemoglobin 10.3 g/dL (11.1-17.3) L 09/17/21 06:15 ABG Oxyhemoglobin 71.7 % (93.0-100.0) L* 09/17/21 06:15 ABG Carboxyhemoglobin 0.1 % (0.0-3.0) 09/17/21 06:15 ABG Methemoglobin 0.3 % (0.0-1.5) 09/17/21 06:15 ABG Deoxyhemoglobin 27.9 % (0.0-5.0) H* 09/17/21 06:15 [place] Test 09/17/21 06:15 Vent Setting Rc 09/17/21 06:15 FiO2 28 % (21-100) 09/17/21 06:15 Blood Gas Comments 09/17/21 06:15 Sodium 142 mmol/L (132-145) 09/20/21 06:06 Potassium 3.4 mmol/L (3.3-5.1) 09/20/21 06:06 Chloride 107 mmol/L (94-110) 09/20/21 06:06 Total Carbon Dioxide 26 mmol/L (21-34) 09/20/21 06:06 Anion Gap 12.4 mmol/L (8.0-16.0) 09/20/21 06:06 BUN 20.8 mg/dL (3.2-26.9) 09/20/21 06:06 Creatinine 1.11 mg/dL (0.51-0.95) H 09/20/21 06:06 Est GFR (MDRD) Af Amer 59 (>60) A 09/20/21 06:06 Est GFR (MDRD) Non-Af 49 (>60) A 09/20/21 06:06 BUN/Creatinine Ratio 19 (6-20) 09/20/21 06:06 Glucose 141 mg/dL (65-100) H 09/20/21 06:06 Plasma Lactic Acid Matti 1.3 mmol/L (0.4-2.0) 09/16/21 17:40 Calcium 8.5 mg/dL (8.2-10.0) 09/20/21 06:06 Phosphorus 3.6 mg/dL (2.5-4.9) 09/20/21 06:06 Magnesium 2.1 mg/dL (1.3-2.3) 09/20/21 06:06 Total Bilirubin 0.53 mg/dL (0.00-0.99) 09/19/21 05:52 Direct Bilirubin 0.19 mg/dL (0.00-0.42) 09/19/21 05:52 AST 15 U/L (3-39) 09/19/21 05:52 ALT 25 U/L (13-66) 09/19/21 05:52 Alkaline Phosphatase 120 U/L (54-112) H 09/19/21 05:52 NT-Pro-B Natriuret Pep 7912 pg/mL (0-125) H 09/18/21 05:47 Total Protein 5.9 g/dL (6.1-8.2) L 09/19/21 05:52 Albumin 1.9 g/dL (3.4-5.0) L 09/19/21 05:52 Globulin 4.0 g/dL (1.5-4.5) 09/19/21 05:52 Albumin/Globulin Ratio 0.5 (1.1-2.5) L 09/19/21 05:52 Urine Color Dark yellow (Yellow) A 09/16/21 15:20 Urine Appearance sl.cloudy (Clear) 09/16/21 15:20 Urine pH 5 09/16/21 15:20 Ur Specific [place] 1.015 (1.015-1.025) 09/16/21 15:20 Urine Protein 75 (Negative) 09/16/21 15:20 Urine Ketones Negative (Negative) 09/16/21 15:20 Urine Blood 50 (Negative) A 09/16/21 15:20 Urine Nitrite Positive (Negative) A 09/16/21 15:20 Urine Bilirubin 1 (Negative) A 09/16/21 15:20 Urine Urobilinogen Normal mg/dL (Normal-1.0) 09/16/21 15:20 Ur Leukocyte Esterase 2+ (Negative) A 09/16/21 15:20 Urine RBC 0-2 /hpf (0 - 2) 09/16/21 15:27 Urine WBC 50-100 /hpf (0 - 6) 09/16/21 15:27 Ur Epithelial Cells 3-6 /lpf (0 - 6) 09/16/21 15:27 Urine Bacteria 3+ /hpf (0 - 1+) 09/16/21 15:27 Urine Glucose Normal (Negative) 09/16/21 15:20 SARS-CoV-2 (PCR) Not detected (Not Detected) 09/16/21 15:27 SARS-CoV-2 Ag (Rapid) Negative (Negative) 09/16/21 15:20 Active Medications Generic Name Dose Route Start Last Admin Trade Name Freq PRN Reason Stop Dose Admin Acetaminophen 650 mg 09/19/21 07:06 Acetaminophen 325 Mg Tablet PO 10/20/21 07:07 Q4H PRN MILD PAIN (1-3) Hydrocodone Bitart/Acetaminophen 1 each 09/19/21 09:00 Hydrocodone Bit/Acetaminophen 5/325 Mg PO 10/20/21 09:01 BID PRN SEVERE PAIN (7-10) Albuterol/Ipratropium 3 ml 09/19/21 16:00 09/20/21 10:40 Ipratropium/Albuterol Sulf Neb Solution IH 10/20/21 16:01 3 ml RTQID [facility] Administration Atorvastatin Calcium 20 mg 09/17/21 22:00 09/19/21 22:11 Atorvastatin Calcium 10 Mg Tablet PO 10/18/21 22:01 20 mg QHS [facility] Administration Budesonide/Formoterol Fumarate 0 gm 09/18/21 20:00 09/20/21 05:22 Budesonide/Formoterol Fumarate Aerosal IH 10/19/21 20:01 2 puff RTBID [facility] Administration Famotidine 20 mg 09/20/21 20:00 Famotidine 20 Mg Tablet PO 10/21/21 20:01 BID [facility]ATT Piperacillin Sod/Tazobactam 100 mls @ 100 mls/hr 09/17/21 10:00 09/20/21 10:28 Sod 4.5 gm/ Sodium Chloride IVPB 09/24/21 10:01 Infused Q8H [facility] Infusion Losartan Potassium 25 mg 09/20/21 09:00 09/20/21 09:21 Losartan Potassium 25 Mg Tablet PO 10/21/21 09:01 25 mg DAILY [facility] Administration Metoprolol Succinate 25 mg 09/18/21 22:55 09/20/21 09:22 Metoprolol Succinate Er 25 Mg Tablet PO 10/19/21 22:56 25 mg BID MATT Administration Metoprolol Tartrate 5 mg 09/16/21 21:20 09/16/21 22:50 Metoprolol Tartrate 5 Mg/5 Ml Injection IVP 10/17/21 21:21 5 mg Q4H PRN Administration For HR >120 Ondansetron HCl 4 mg 09/19/21 07:07 Ondansetron Hcl/Pf 4 Mg/2 Ml Injection IVP 10/20/21 07:08 Q4H PRN Nausea / Vomiting Oxybutynin Chloride 5 mg 09/17/21 09:00 09/20/21 09:20 Oxybutynin Chloride Er 5 Mg Tablet PO 10/18/21 09:01 5 mg DAILY MATT Administration Patient Own Medication 0 mg 09/19/21 15:30 09/20/21 09:18 Patient Own Medication #1 PO 10/20/21 15:31 1 mg DAILY MATT Administration Pramipexole Dihydrochloride 0.5 mg 09/17/21 09:00 09/20/21 09:21 Pramipexole Hcl 0.25 Mg Tablet PO 10/18/21 09:01 0.5 mg BID MATT Administration Saccharomyces Boulardii 500 mg 09/18/21 20:00 09/20/21 09:19 Saccharomyces Boulardii 250 Mg Capsule PO 10/19/21 20:01 500 mg BID MATT Administration Sodium Phosphate 2 tab 09/17/21 10:00 09/20/21 09:20 Phosphorus Potassium/Sodium 250 Mg Tablet PO 10/18/21 10:01 2 tab BID MATT Administration Trazodone HCl 50 mg 09/20/21 22:00 Trazodone Hcl 50 Mg Tablet PO 10/21/21 22:01 QHS MATT Warfarin Sodium 6 mg 09/18/21 22:00 09/18/21 21:09 Warfarin Sodium 6 Mg Tablet PO 10/19/21 22:01 6 mg QHS MATT Administration Protocol Patient History Albuterol Sulfate [Proair Hfa] 2 puff IN Q4H PRN 09/16/21 [History Confirmed 09/16/21] Atorvastatin Calcium [Lipitor 20 mg Tablet] 20 mg PO QHS 09/16/21 [History Confirmed 09/16/21] Calcium Carbonate [Calcium] 2 tab PO DAILY 09/16/21 [History Confirmed 09/16/21] Celecoxib [Celebrex 200 mg Capsule] 1 cap PO DAILY 09/16/21 [History Confirmed 09/16/21] Hydrocodone Bit/Acetaminophen [Palo 5/325 mg Tablet] 1 tab PO BID 09/16/21 [History Confirmed 09/16/21] Metoprolol Succinate [Toprol Xl 25 mg Tablet] 25 mg PO BID 09/16/21 [History Confirmed 09/16/21] Olmesartan Medoxomil [Benicar] 1 tab PO DAILY 09/16/21 [History Confirmed 09/16/21] Pramipexole Di-HCl [Mirapex] 0.5 mg PO BID 09/16/21 [History Confirmed 09/16/21] Solifenacin Succinate [Vesicare] 5 mg PO DAILY 09/16/21 [History Confirmed 09/16/21] Trazodone HCl [Desyrel 50 mg Tablet] 50 mg PO BID 09/16/21 [History Confirmed 09/16/21] Vit A/Vit C/Vit E/Zinc/Copper [Preservision Areds Tablet] 1 tab PO DAILY 09/16/21 [History Confirmed 09/16/21] Vortioxetine Hydrobromide [Trintellix] 20 mg PO DAILY 09/16/21 [History Confirmed 09/16/21] Warfarin Sodium [Coumadin 6 mg Tablet] 6 mg PO QHS 09/16/21 [History Confirmed 09/16/21] Past Medical History Hx Ear/Nose/Throat Disorders: No Hx Neurological Disorder: No Hx Psychosocial Problems: No Hx Cardiac Disorders: Yes PMH--Cardiovascular: Confirms: Atrial Fib, CHF, HTN, Hypercholesterolemia Hx Respiratory Disorders: Yes PMH--Respiratory: Confirms: COPD Hx Endocrine Disorders: No Hx Musculoskeletal Disorders: Yes PMH--Musculoskeletal: Confirms: Arthritis, Degen. Disk Disease, Fibromyalgia ?: No Hx Reproductive Disorders: No Hx Genitourinary Disorders: No Hx Gastrointestinal Disorders: No Hx Cancer: No Past Social History Marital Status: Lives with: Alone Occupation: retired Highest Educational Level: High School Able to Read: Yes Able to Write: Yes Alcohol Use: Never - [place]/Gender ID What is your current Gender Identity? Choose all that Apply: Female Define your Sexual Orientation?: Straight/Heterosexual - [place]-Suicide Severity Rating Scale 1) Wish to be :: No 2) Suicidal Thoughts:: No 3) Suicidal Thoughts with Method:: No 4) Suicidal Intent (WITHOUT Specific Plan):: No 5) Suicidal Intent (WITH Specific Plan):: No 6) Suicidal Behavior Question (A): LIFETIME: No 6) Suicidal Behavior Question (B): PAST 3 MONTHS: No Patient Safety Strategies Initiated?: No Family Medical History - Family Medical History No Significant Family History Other Family History: Review of Systems General: Denies: Fever ENT: Denies: Throat Swelling Respiratory: Confirms: Shortness of Breath. Denies: Wheezing Cardiovascular: Denies: Chest Pain-Sharp, Chest Pain-Heavy, Edema Gastrointestinal: Denies: Nausea, Vomiting Skin: Denies: Rash Neurological: Denies: Weakness, Numbness Cardiology Exam General: Yes: Alert, Oriented HEENT: Yes: Atraumatic Lungs: Yes: Normal air movement Cardiovascular: Yes: Irregular Rate, Normal S2, Normal S1, JVD Abdomen: Yes: Soft, Large/Obese Neurological: Yes: Speech Clear Psych/Mental Status: Yes: Mental status NL ASSESSMENT/PLAN Reviewed Vitals, Medications, Labs and Notes. 1) Acute on chronic diastolic CHF -BNPT about 7K. She was given a dose of IV lasix this morning, will give a second dose this afternoon. Her IVC was dilated on echo yesterday. Still on nasal cannula (not on oxygen at home) -Etiology is likely from resuscitation given her sepsis and pyelonephritis earlier this admission requiring IV fluids. 2) Afib -Permanent. This was confirmed by her records from [facility]. Continue anticoagulation with warfarin. 3) Moderate AI and Mild-moderate MR -I anticipate this improve after diuresis. She will need a repeat echo after discharge at [facility]. Patient made aware of these findings (no significant regurgitation noted on echo in 2019 at [facility], just trivial AI). Thank you for the consultation, will continue to follow. Electronically Generated By:XIOMARA OLMOS MD Generated Date/Time: 09/20/21 1528 Electronically Signed By: XIOMARA OLMOS MD Signed Date/Time 09/20/21 1535 Co Signed Electronically By: Co Signed Date/Time: CC: XIOMARA OLMOS MD; [facility] Work Phone: 1(271) [phone] [place] [address] HEALTH INFORMATION MANAGEMENT CONSULTATION : [phone] Signed Patient: IVON WISEMAN Acct:[id number] MRUN : [id number] : 1955 Sex: F Loc: ICU ADM Date: Room/Bed: 352-A DISC Date: CARDIOLOGY CONSULT THIS DOCUMENT HAS BEEN CREATED USING VOICE RECOGNITION SOFTWARE AND MAY CONTAIN GRAMMATICAL, SYNTAX, AND TYPOGRAPHICAL ERRORS. Admission Date: 09/16/21 16:17 Current Date: 09/20/21 Chief Complaint: CHF/AI Referring Physician: Hospitalist HPI: This is a 65-year-old female with history of permanent atrial fibrillation, history of previous ablations in the past, she was admitted for sepsis and UTI. She was found to be in heart failure as well. An echo was ordered that showed moderate aortic regurgitation and I was consulted. She was given a dose of IV Lasix this morning. She is currently on nasal cannula, not on oxygen at home. She denies any chest pain or pressure. She was given IV fluids for sepsis and pyelonephritis. Past cardiac history: Follows [facility] -Hx of Afib ablation, now permanent Afib, on warfarin -No Hx of CAD, denied previous [facility] Allergies/Adverse Reactions: flecainide Allergy (Verified 09/16/21 14:32) Last Vital Signs Temp 97.5 F 09/20/21 08:00 Pulse 74 09/20/21 10:40 Resp 18 09/20/21 10:40 BP 121/52 09/20/21 10:00 Pulse Ox 98 09/20/21 10:40 FiO2 Laboratory Last Values WBC 7.5 K/uL (3.6-10.8) 09/20/21 06:06 RBC 2.69 M/uL (3.83-5.19) L 09/20/21 06:06 Hgb 8.6 g/dL (11.1-13.7) L 09/20/21 06:06 Hct 26.2 % (33.4-46.0) L 09/20/21 06:06 MCV 97.4 fL (81.0-99.0) 09/20/21 06:06 MCH 32.0 pg (27.0-31.0) H 09/20/21 06:06 MCHC 32.8 g/dL (33.0-37.0) L 09/20/21 06:06 RDW 14.8 % (11.5-14.5) H 09/20/21 06:06 Plt Count 139 K/uL (148-402) L 09/20/21 06:06 Plt Count Comment Appear normal 09/18/21 05:47 MPV 10.6 fL (7.4-10.4) H 09/20/21 06:06 Neut % (Auto) 74.3 % (43.0-65.0) H 09/20/21 06:06 Lymph % (Auto) 17.0 % (17.0-45.5) 09/20/21 06:06 [place] % (Auto) 6.7 % (5.5-11.7) 09/20/21 06:06 Eos % (Auto) 1.1 % (0.9-2.9) 09/20/21 06:06 Baso % (Auto) 0.5 % (0.2-1.0) 09/20/21 06:06 Abs Immat Gran (man) 0.03 K/uL (0.00-0.10) 09/20/21 06:06 Absolute Neuts (auto) 5.54 K/uL (2.20-4.80) H 09/20/21 06:06 Absolute Lymphs (auto) 1.30 K/uL (1.30-2.90) 09/20/21 06:06 Absolute Monos (auto) 0.50 K/uL (0.30-0.80) 09/20/21 06:06 Absolute Eos (auto) 0.10 K/uL (0.00-0.20) 09/20/21 06:06 Absolute Basos (auto) 0.04 K/uL (0.00-0.10) 09/20/21 06:06 Immature Gran % 0.40 % (0.00-1.00) 09/20/21 06:06 Neutrophils (Manual) 87 % (43-65) H 09/18/21 05:47 Lymphocytes (Manual) 10 % (17-46) L 09/18/21 05:47 Monocytes (Manual) 3 % (6-12) L 09/18/21 05:47 Eosinophils (Manual) 0 % (1-3) L 09/18/21 05:47 Basophils (Manual) 0 % (0-1) 09/18/21 05:47 PT 32.0 sec (8.9-12.2) H 09/20/21 06:06 INR 3.55 ratio 09/20/21 06:06 Sample Site L radial 09/17/21 06:15 ABG pH 7.312 (7.35-7.45) L 09/17/21 06:15 ABG pCO2 42.0 mmHg (35.0-45.0) 09/17/21 06:15 ABG pO2 40.4 mmHg (80.0-100.0) L 09/17/21 06:15 ABG HCO3 20.8 mmol/L (20.0-26.0) L 09/17/21 06:15 ABG O2 Saturation 72.0 % (93.0-100.0) L* 09/17/21 06:15 ABG Base Excess -5.1 mmol/L (-2.0-2.0) L 09/17/21 06:15 ABG Hemoglobin 10.3 g/dL (11.1-17.3) L 09/17/21 06:15 ABG Oxyhemoglobin 71.7 % (93.0-100.0) L* 09/17/21 06:15 ABG Carboxyhemoglobin 0.1 % (0.0-3.0) 09/17/21 06:15 ABG Methemoglobin 0.3 % (0.0-1.5) 09/17/21 06:15 ABG Deoxyhemoglobin 27.9 % (0.0-5.0) H* 09/17/21 06:15 [place] Test 09/17/21 06:15 Vent Setting Rc 09/17/21 06:15 FiO2 28 % (21-100) 09/17/21 06:15 Blood Gas Comments 09/17/21 06:15 Sodium 142 mmol/L (132-145) 09/20/21 06:06 Potassium 3.4 mmol/L (3.3-5.1) 09/20/21 06:06 Chloride 107 mmol/L (94-110) 09/20/21 06:06 Total Carbon Dioxide 26 mmol/L (21-34) 09/20/21 06:06 Anion Gap 12.4 mmol/L (8.0-16.0) 09/20/21 06:06 BUN 20.8 mg/dL (3.2-26.9) 09/20/21 06:06 Creatinine 1.11 mg/dL (0.51-0.95) H 09/20/21 06:06 Est GFR (MDRD) Af Amer 59 (>60) A 09/20/21 06:06 Est GFR (MDRD) Non-Af 49 (>60) A 09/20/21 06:06 BUN/Creatinine Ratio 19 (6-20) 09/20/21 06:06 Glucose 141 mg/dL (65-100) H 09/20/21 06:06 Plasma Lactic Acid Matti 1.3 mmol/L (0.4-2.0) 09/16/21 17:40 Calcium 8.5 mg/dL (8.2-10.0) 09/20/21 06:06 Phosphorus 3.6 mg/dL (2.5-4.9) 09/20/21 06:06 Magnesium 2.1 mg/dL (1.3-2.3) 09/20/21 06:06 Total Bilirubin 0.53 mg/dL (0.00-0.99) 09/19/21 05:52 Direct Bilirubin 0.19 mg/dL (0.00-0.42) 09/19/21 05:52 AST 15 U/L (3-39) 09/19/21 05:52 ALT 25 U/L (13-66) 09/19/21 05:52 Alkaline Phosphatase 120 U/L (54-112) H 09/19/21 05:52 NT-Pro-B Natriuret Pep 7 (more content not included)...[facility]07-26-2022 Progress note Author ADRIANE WAYNE [facility] September 20, 2021 11:48am Note Date/Time September 20, 2021 11:4 1am [facility] [address] [place] [id number] HEALTH INFORMATION MANAGEMENT PROGRESS NOTE : [id number] Signed Patient: IVON WISEMAN Acct:[id number] MRUN: [id number] : 1955 Sex: F Loc: ICU AD M Date: 09/16/21 Room/Bed: 352-A DISC Date: Subjective Assessment Date Of Service: 09/20/21 Events Since Admission: IVON WISEMAN was admitted to [facility] service into room 352 on 09/16/21 at 16:17 for complaints of UTI. The patient's laboratory testing and diagnostic testing has been reviewed. Subjective Note: Last night, losartan 25 mg was started for high BP. Shortness of breath slightly improved compared to yesterday. mild leg swelling. Denies chest pain, palpitations. No fevers or chills With diarrhea General: Confirms: Weakness, Fatigue. Denies: Fever, Chills, Sweats, Weight Gain, Weight Loss, Other ENT: Denies: Earache, Ear Discharge, Decreased Hearing, Tinnitus, Nose Congestion, Nose Drainage, Nasal Ulcers, Epitaxis, Sore Throat, Throat Swelling,Hoarseness, Loss Of Voice, Tongue Pain, Tongue Swelling, Lip Swelling, Dental Pain, Cervical, Other Respiratory: Confirms: Shortness of Breath, Dyspnea on Exertion. Denies: Cough,Wheezing, Sputum Production, Hemoptysis, Pleuritic Pain, Other Cardiovascular: Confirms: Short of Breath, Dyspnea on Exertion. Denies: Chest Pain-Sharp, Chest Pain-Heavy, Orthopnea, Paroxysmal Noc. Dyspnea, Edema, Palpitations, Light Headedness, Syncope, Diaphoresis, Claudication, Edema, Other Gastrointestinal: Confirms: Diarrhea. Denies: Nausea, Vomiting, Abdominal Pain,Constipation, Melena, Hematochezia, Other Genitourinary: Denies: Dysuria, Frequency, Incontinence, Hematuria, Retention, Other Musculoskeletal: Denies: Neck Pain, Shoulder Pain, Arm Pain, Back Pain, Hand Pain, Leg Pain, Foot Pain, Other Neurological: Confirms: Weakness. Denies: Numbness, Incoordination, Change in Speech, Confusion, Seizures, Other Objective Findings General: Yes: Alert, Oriented (X3), Cooperative/Pleasant, No acute distress HEENT: Yes: Atraumatic, PERRLA, Mucous membr. moist/pink, EOMI. No: Vision Impaired, Hearing Impaired Neck: Yes: Supple, +2 carotid pulse wo bruit. No: JVD, Thyromegaly Lungs: Yes: Normal air movement, Unlabored, Rales, Diminished (bilateral lung bases). No: Exibits Shortness of Mandy, Pursed Lip Breathing, Use of Accessory Muscles, Retracting Cardiovascular: Yes: Regular rate, Normal S2, Normal S1, No murmurs, Geriatric Assistant Rhythm (Sinus Rhythm). No: Gallops, Rubs, Ectopy Abdomen: Yes: Bowel Sounds X4, Soft, No Tenderness, Flatus. No: Hepatospenomegaly, Masses, Nausea/Vomiting, Emesis Present, Constipation, Diarrhea Genitourinary/Rectal: Yes: Deferred-Not Relevant Extremities: Yes: Normal pulses. No: Clubbing, Cyanosis, Edema, No tenderness/swelling, Mottling noted Skin: No: Rashes, Skin Breakdown, Significant lesions, Open Wound Present Neurological: Yes: Speech Clear, Normal tone, Sensation intact, Cognitive Ability Intact Psych/Mental Status: Yes: Mental status NL, Mood Appropriate. No: Hallucinations Vitals and I&O: Vital Signs Temperature 97.3 F 09/20/21 04:00 Pulse Rate 74 09/20/21 10:40 Respiratory Rate 18 09/20/21 10:40 Blood Pressure 139/63 09/20/21 09:22 O2 Sat by Pulse Oximetry(%) 98 09/20/21 10:40 FiO2 - Manual Entry Intake & Output 09/19/21 09/19/21 09/20/21 11:59 23:59 11:59 Intake Total 765 300 300 Output Total 1650 1400 700 Balance -885 -1100 -400 Weight 250 lb 4.8 oz 261 lb 8 oz Intake: IV Intake 525 100 100 Levophed 4 mg/4 ml 0 Injection 8 mg In Sodium Chloride 0.9 % 250 ml 242 ml @ 0.1 MCG/KG/MIN 20. 888 mls/hr IV CONT PRN Rx #:[id number] Sodium Chloride 0.9 % 325 1000 ml 1,000 ml @ 125 mls/hr IV .Q8H PRN Rx#: [id number] Zosyn 4.5 gm Injection 4. 200 100 100 5 gm In Sodium Chloride 0 .9 % 100 ml 100 ml @ 100 mls/hr IVPB Q8H MATT Rx#: [id number] Intake ml 240 200 200 Oral 200 Output: Output ml 1650 1400 700 Reyes 1600 1400 700 Rectal tube 50 Stool 0 Other: Output Urine Nonnumeric/ See I&O Comment Output stool Nonnumeric/ Comment Stool small liquid yellow Laboratory-Last 48 hrs: 09/20/21 06:06 09/20/21 06:06 Laboratory Results-last 24 hrs 09/18/21 22:13: Hgb 9.0 L, Hct 27.6 L 09/19/21 05:52: Creatinine 1.25 H, Est GFR (MDRD) Af Amer 52 A, Est GFR (MDRD) Non-Af 43 A, Glucose 131 H, Calcium 8.0 L 09/19/21 05:52: RBC 3.10 L, Hgb 9.7 L, Hct 29.9 L, MCH 31.3 H, MCHC 32.4 L, RDW 15.1 H, Plt Count 120 L, MPV 10.8 H, Neut % (Auto) 85.0 H, Lymph % (Auto) 8.8 L,[place] % (Auto) 4.9 L, Eos % (Auto) 0.6 L, Baso % (Auto) 0.1 L, Absolute Neuts (auto) 7.69 H, Absolute Lymphs (auto) 0.80 L 09/19/21 05:52: PT 30.8 H 09/19/21 05:52: Alkaline Phosphatase 120 H, Total Protein 5.9 L, Albumin 1.9 L, Albumin/Globulin Ratio 0.5 L 09/20/21 06:06: Creatinine 1.11 H, Est GFR (MDRD) Af Amer 59 A, Est GFR (MDRD) Non-Af 49 A, Glucose 141 H 09/20/21 06:06: RBC 2.69 L, Hgb 8.6 L, Hct 26.2 L, MCH 32.0 H, MCHC 32.8 L, RDW 14.8 H, Plt Count 139 L, MPV 10.6 H, Neut % (Auto) 74.3 H, Absolute Neuts (auto)5.54 H 09/20/21 06:06: PT 32.0 H Radiology-Impressions: See radiology reports in electronic medical record. Plan/Treatment Plan: Septic shock pyelonephritis, ecoli chao, likely vasomotor nephropathy, no prior baseline to compare with persistent afib in rvr, on chronic anticoagulation, supratherapeutic inr; hx of cardioversion in 2010 hx of dvt and pe covid ruled out acute hypxoic respiratory failue copd in mild exacerbation noted since 09/17 pulmonary edema, likely from fluid resuscitation. r/o underlying HF. no hx of chf per records. echo findings of mod AR, MR mild to mod anemia, normocytic, stable thrombocytopenia, new HTN HLD chronic pain on chronic prescribed opioiod depression morbid obesity plan f/up blood cultures - negative urine culture. - ecoli stool culture. - neg continue Zosyn restarted metoprolol. continue telemetry losatan 25 give another dose of lasix. i/o, daily wts keep k close to 4, mg close to 2. give mg echo findings of mod AR, MR mild to mod cardiology consult home inhalers. breathing tx. avoided steroids in the setting of septic shock follow hg. no signs of overt blood loss. stabilizing at the range of 9 hold home warfarin tonight. inr supra therapeutic home statin home norco, pramipexole, trazodone pt following dvt ppx: home warfarin gi ppx: pepcid, renally dose med surg status New Orders: New Orders-Lab 09/20/21 06:06 Basic Metabolic Panel [CHM] DAILY@0400 CBC w/Auto Differential [HEM] DAILY@0400 INR [PT] [COA] DAILY@0400 Magnesium [CHM] Routine Phosphorus [CHM] Routine 09/21/21 04:00 Basic Metabolic Panel [CHM] DAILY@0400 CBC w/Auto Differential [HEM] DAILY@0400 INR [PT] [COA] DAILY@0400 09/22/21 04:00 Basic Metabolic Panel [CHM] DAILY@0400 CBC w/Auto Differential [HEM] DAILY@0400 INR [PT] [COA] DAILY@0400 Medications 09/20/21 09:00 Losartan Potassium [Losartan 25 mg Tablet] 25 mg PO DAILY 09/20/21 10:00 Potassium Chloride [Kdur 20 Meq Tablet] 40 meq PO Q4H 09/20/21 12:00 Furosemide [Lasix 20 mg/2 ml Injection] 20 mg IVP ONE ONE 09/20/21 20:00 Famotidine [Pepcid 20 mg Tablet] 20 mg PO BID Electronically Generated By:ADRIANE WAYNE MD Generated Date/Time: 09/20/21 1136 Electronically Signed By: ADRIANE WAYNE MD Signed Date/Time 09/20/21 1148 Co Signed Electronically By: Co Signed Date/Time: CC: [facility] Work Phone: 1(341) 428-335407-26-2022 Progress note Author ADRIANE WAYNE [facility] September 20, 2021 11:48am Note Date/Time September 20, 2021 11:4 1am [facility] [address] [place] [address] HEALTH INFORMATION MANAGEMENT PROGRESS NOTE : [id number] Signed Patient: IVON WISEMAN Acct:[id number] MRUN: [id number] : 1955 Sex: F Loc: ICU AD M Date: 09/16/21 Room/Bed: 352-A DISC Date: Subjective Assessment Date Of Service: 09/20/21 Events Since Admission: IVON WISEMAN was admitted to [facility] service into room 352 on 09/16/21 at 16:17 for complaints of UTI. The patient's laboratory testing and diagnostic testing has been reviewed. Subjective Note: Last night, losartan 25 mg was started for high BP. Shortness of breath slightly improved compared to yesterday. mild leg swelling. Denies chest pain, palpitations. No fevers or chills With diarrhea General: Confirms: Weakness, Fatigue. Denies: Fever, Chills, Sweats, Weight Gain, Weight Loss, Other ENT: Denies: Earache, Ear Discharge, Decreased Hearing, Tinnitus, Nose Congestion, Nose Drainage, Nasal Ulcers, Epitaxis, Sore Throat, Throat Swelling,Hoarseness, Loss Of Voice, Tongue Pain, Tongue Swelling, Lip Swelling, Dental Pain, Cervical, Other Respiratory: Confirms: Shortness of Breath, Dyspnea on Exertion. Denies: Cough,Wheezing, Sputum Production, Hemoptysis, Pleuritic Pain, Other Cardiovascular: Confirms: Short of Breath, Dyspnea on Exertion. Denies: Chest Pain-Sharp, Chest Pain-Heavy, Orthopnea, Paroxysmal Noc. Dyspnea, Edema, Palpitations, Light Headedness, Syncope, Diaphoresis, Claudication, Edema, Other Gastrointestinal: Confirms: Diarrhea. Denies: Nausea, Vomiting, Abdominal Pain,Constipation, Melena, Hematochezia, Other Genitourinary: Denies: Dysuria, Frequency, Incontinence, Hematuria, Retention, Other Musculoskeletal: Denies: Neck Pain, Shoulder Pain, Arm Pain, Back Pain, Hand Pain, Leg Pain, Foot Pain, Other Neurological: Confirms: Weakness. Denies: Numbness, Incoordination, Change in Speech, Confusion, Seizures, Other Objective Findings General: Yes: Alert, Oriented (X3), Cooperative/Pleasant, No acute distress HEENT: Yes: Atraumatic, PERRLA, Mucous membr. moist/pink, EOMI. No: Vision Impaired, Hearing Impaired Neck: Yes: Supple, +2 carotid pulse wo bruit. No: JVD, Thyromegaly Lungs: Yes: Normal air movement, Unlabored, Rales, Diminished (bilateral lung bases). No: Exibits Shortness of Mandy, Pursed Lip Breathing, Use of Accessory Muscles, Retracting Cardiovascular: Yes: Regular rate, Normal S2, Normal S1, No murmurs, Geriatric Assistant Rhythm (Sinus Rhythm). No: Gallops, Rubs, Ectopy Abdomen: Yes: Bowel Sounds X4, Soft, No Tenderness, Flatus. No: Hepatospenomegaly, Masses, Nausea/Vomiting, Emesis Present, Constipation, Diarrhea Genitourinary/Rectal: Yes: Deferred-Not Relevant Extremities: Yes: Normal pulses. No: Clubbing, Cyanosis, Edema, No tenderness/swelling, Mottling noted Skin: No: Rashes, Skin Breakdown, Significant lesions, Open Wound Present Neurological: Yes: Speech Clear, Normal tone, Sensation intact, Cognitive Ability Intact Psych/Mental Status: Yes: Mental status NL, Mood Appropriate. No: Hallucinations Vitals and I&O: Vital Signs Temperature 97.3 F 09/20/21 04:00 Pulse Rate 74 09/20/21 10:40 Respiratory Rate 18 07/26/22 10:40 Blood Pressure 139/63 09/20/21 09:22 O2 Sat by Pulse Oximetry(%) 98 09/20/21 10:40 FiO2 - Manual Entry Intake & Output 09/19/21 09/19/21 09/20/21 11:59 23:59 11:59 Intake Total 765 300 300 Output Total 1650 1400 700 Balance -885 -1100 -400 Weight 250 lb 4.8 oz 261 lb 8 oz Intake: IV Intake 525 100 100 Levophed 4 mg/4 ml 0 Injection 8 mg In Sodium Chloride 0.9 % 250 ml 242 ml @ 0.1 MCG/KG/MIN 20. 888 mls/hr IV CONT PRN Rx #:[id number] Sodium Chloride 0.9 % 325 1000 ml 1,000 ml @ 125 mls/hr IV .Q8H PRN Rx#: [id number] Zosyn 4.5 gm Injection 4. 200 100 100 5 gm In Sodium Chloride 0 .9 % 100 ml 100 ml @ 100 mls/hr IVPB Q8H MATT Rx#: [id number] Intake ml 240 200 200 Oral 200 Output: Output ml 1650 1400 700 Reyes 1600 1400 700 Rectal tube 50 Stool 0 Other: Output Urine Nonnumeric/ See I&O Comment Output stool Nonnumeric/ Comment Stool small liquid yellow Laboratory-Last 48 hrs: 09/20/21 06:06 09/20/21 06:06 Laboratory Results-last 24 hrs 09/18/21 22:13: Hgb 9.0 L, Hct 27.6 L 09/19/21 05:52: Creatinine 1.25 H, Est GFR (MDRD) Af Amer 52 A, Est GFR (MDRD) Non-Af 43 A, Glucose 131 H, Calcium 8.0 L 09/19/21 05:52: RBC 3.10 L, Hgb 9.7 L, Hct 29.9 L, MCH 31.3 H, MCHC 32.4 L, RDW 15.1 H, Plt Count 120 L, MPV 10.8 H, Neut % (Auto) 85.0 H, Lymph % (Auto) 8.8 L,[place] % (Auto) 4.9 L, Eos % (Auto) 0.6 L, Baso % (Auto) 0.1 L, Absolute Neuts (auto) 7.69 H, Absolute Lymphs (auto) 0.80 L 09/19/21 05:52: PT 30.8 H 09/19/21 05:52: Alkaline Phosphatase 120 H, Total Protein 5.9 L, Albumin 1.9 L, Albumin/Globulin Ratio 0.5 L 09/20/21 06:06: Creatinine 1.11 H, Est GFR (MDRD) Af Amer 59 A, Est GFR (MDRD) Non-Af 49 A, Glucose 141 H 09/20/21 06:06: RBC 2.69 L, Hgb 8.6 L, Hct 26.2 L, MCH 32.0 H, MCHC 32.8 L, RDW 14.8 H, Plt Count 139 L, MPV 10.6 H, Neut % (Auto) 74.3 H, Absolute Neuts (auto)5.54 H 09/20/21 06:06: PT 32.0 H Radiology-Impressions: See radiology reports in electronic medical record. Plan/Treatment Plan: Septic shock pyelonephritis, ecoli chao, likely vasomotor nephropathy, no prior baseline to compare with persistent afib in rvr, on chronic anticoagulation, supratherapeutic inr; hx of cardioversion in 2010 hx of dvt and pe covid ruled out acute hypxoic respiratory failue copd in mild exacerbation noted since 09/17 pulmonary edema, likely from fluid resuscitation. r/o underlying HF. no hx of chf per records. echo findings of mod AR, MR mild to mod anemia, normocytic, stable thrombocytopenia, new HTN HLD chronic pain on chronic prescribed opioiod depression morbid obesity plan f/up blood cultures - negative urine culture. - ecoli stool culture. - neg continue Zosyn restarted metoprolol. continue telemetry losatan 25 give another dose of lasix. i/o, daily wts keep k close to 4, mg close to 2. give mg echo findings of mod AR, MR mild to mod cardiology consult home inhalers. breathing tx. avoided steroids in the setting of septic shock follow hg. no signs of overt blood loss. stabilizing at the range of 9 hold home warfarin tonight. inr supra therapeutic home statin home norco, pramipexole, trazodone pt following dvt ppx: home warfarin gi ppx: pepcid, renally dose med surg status New Orders: New Orders-Lab 09/20/21 06:06 Basic Metabolic Panel [CHM] DAILY@0400 CBC w/Auto Differential [HEM] DAILY@0400 INR [PT] [COA] DAILY@0400 Magnesium [CHM] Routine Phosphorus [CHM] Routine 09/21/21 04:00 Basic Metabolic Panel [CHM] DAILY@0400 CBC w/Auto Differential [HEM] DAILY@0400 INR [PT] [COA] DAILY@0400 09/22/21 04:00 Basic Metabolic Panel [CHM] DAILY@0400 CBC w/Auto Differential [HEM] DAILY@0400 INR [PT] [COA] DAILY@0400 Medications 09/20/21 09:00 Losartan Potassium [Losartan 25 mg Tablet] 25 mg PO DAILY 09/20/21 10:00 Potassium Chloride [Kdur 20 Meq Tablet] 40 meq PO Q4H 09/20/21 12:00 Furosemide [Lasix 20 mg/2 ml Injection] 20 mg IVP ONE ONE 09/20/21 20:00 Famotidine [Pepcid 20 mg Tablet] 20 mg PO BID Electronically Generated By:ADRIANE WAYNE MD Generated Date/Time: 09/20/21 1136 Electronically Signed By: ADRIANE WAYNE MD Signed Date/Time 09/20/21 1148 Co Signed Electronically By: Ebenezer Signed Date/Time: CC: [facility] Work Phone: [phone]) 765-938607-25-2022 Progress note Author ADRIANE WAYNE [facility] September 19, 2021 2:12pm Note Date/Time September 19, 2021 11:1 1am [facility] [address] [place] [id number] HEALTH INFORMATION MANAGEMENT PROGRESS NOTE : [id number] Signed Patient: IVON WISEMAN Acct:[id number] MRUN: [id number] : 1955 Sex: F Loc: ICU AD M Date: 09/16/21 Room/Bed: 352-A DISC Date: Subjective Assessment Date Of Service: 09/19/21 Events Since Admission: IVON WISEMAN was admitted to [facility] service into room 352 on 09/16/21 at 16:17 for complaints of UTI. The patient's laboratory testing and diagnostic testing has been reviewed. Subjective Note: Yesterday, Levophed has been weaned off. had soft to watery diarrhea. So far blood pressure tolerating. Metoprolol has been restarted. Heart rate improved to 80s. patient seen today. still with orthopnea. nasal cannula on. reports sob on exertion. she has generalized weakness. denies fever, chills General: Confirms: Weakness, Fatigue. Denies: Fever, Chills, Sweats, Weight Gain, Weight Loss, Other ENT: Denies: Earache, Ear Discharge, Decreased Hearing, Tinnitus, Nose Congestion, Nose Drainage, Nasal Ulcers, Epitaxis, Sore Throat, Throat Swelling,Hoarseness, Loss Of Voice, Tongue Pain, Tongue Swelling, Lip Swelling, Dental Pain, Cervical, Other Respiratory: Confirms: Shortness of Breath, Dyspnea on Exertion. Denies: Cough,Wheezing, Sputum Production, Hemoptysis, Pleuritic Pain, Other Cardiovascular: Confirms: Orthopnea, Dyspnea on Exertion. Denies: Chest Pain- Sharp, Chest Pain-Heavy, Short of Breath, Paroxysmal Noc. Dyspnea, Edema, Palpitations, Light Headedness, Syncope, Diaphoresis, Claudication, Edema, Other Gastrointestinal: Confirms: Diarrhea. Denies: Nausea, Vomiting, Abdominal Pain,Constipation, Melena, Hematochezia, Other Genitourinary: Denies: Dysuria, Frequency, Incontinence, Hematuria, Retention, Other Musculoskeletal: Denies: Neck Pain, Shoulder Pain, Arm Pain, Back Pain, Hand Pain, Leg Pain, Foot Pain, Other Neurological: Confirms: Weakness. Denies: Numbness, Incoordination, Change in Speech, Confusion, Seizures, Other Objective Findings General: Yes: Alert, Oriented (X3), Cooperative/Pleasant, No acute distress, Other (fatigued, weak appearing ) HEENT: Yes: Atraumatic, PERRLA, Mucous membr. moist/pink, EOMI Neck: Yes: Supple, +2 carotid pulse wo bruit. No: JVD, Thyromegaly Lungs: Yes: Labored, Rales (L lung base), Diminished (on the bases), Exibits Shortness of [place]. No: Pursed Lip Breathing, Use of Accessory Muscles, Retracting Cardiovascular: Yes: Regular rate (irregular rhythm), Normal S2, Normal S1, No murmurs, Geriatric Assistant Rhythm (Sinus Rhythm). No: Gallops, Rubs, Ectopy Abdomen: Yes: Bowel Sounds X4, Soft, No Tenderness, Flatus. No: Hepatospenomegaly, Masses, Nausea/Vomiting, Emesis Present, Constipation, Diarrhea Genitourinary/Rectal: Yes: Deferred-Not Relevant Extremities: Yes: Normal pulses. No: Clubbing, Cyanosis, Edema, No tenderness/swelling, Mottling noted Skin: No: Rashes, Skin Breakdown, Significant lesions, Open Wound Present Neurological: Yes: Speech Clear, Normal tone, Sensation intact, Cognitive Ability Intact Psych/Mental Status: Yes: Mental status NL, Mood Appropriate. No: Hallucinations Vitals and I&O: Vital Signs Temperature 97.0 F 09/19/21 08:00 Pulse Rate 70 09/19/21 10:01 Respiratory Rate 20 09/19/21 07:30 Blood Pressure 151/62 09/19/21 10:01 O2 Sat by Pulse Oximetry(%) 98 09/19/21 10:01 FiO2 - Manual Entry Intake & Output 09/18/21 09/18/21 09/19/21 11:59 23:59 11:59 Intake Total 394 450 765 Output Total 650 1225 450 Balance -256 -775 315 Weight 246 lb 12.8 oz 250 lb 4.8 oz Intake: IV Intake 294 350 525 Levophed 4 mg/4 ml 94 Injection 8 mg In Sodium Chloride 0.9 % 250 ml 242 ml @ 0.1 MCG/KG/MIN 20. 888 mls/hr IV CONT PRN Rx #:[id number] Sodium Chloride 0.9 % 325 1000 ml 1,000 ml @ 125 mls/hr IV .Q8H PRN Rx#: [id number] Vancocin 1 Gram Injection 250 1.5 gm In Sodium Chloride 0.9 % 250 ml 250 ml @ 166.667 mls/hr IVPB Q24H MATT Rx#:[id number] Zosyn 4.5 gm Injection 4. 200 100 200 5 gm In Sodium Chloride 0 .9 % 100 ml 100 ml @ 100 mls/hr IVPB Q8H MATT Rx#: [id number] Intake ml 100 100 240 Output: Output ml 650 1225 450 Reyes 650 1225 400 Rectal tube 50 Other: Output Urine Nonnumeric/ See I&O Comment Output stool Nonnumeric/ Comment Stool large loose small liquid Laboratory-Last 48 hrs: 09/19/21 05:52 09/19/21 05:52 Laboratory Results-last 24 hrs 09/18/21 05:47: Creatinine 1.57 H, Est GFR (MDRD) Af Amer 40 A, Est GFR (MDRD) Non-Af 33 A, Glucose 140 H, Calcium 7.7 L 09/18/21 05:47: WBC 14.8 H, RBC 2.74 L, Hgb 8.7 L, Hct 26.7 L, MCH 31.8 H, MCHC 32.6 L, RDW 15.4 H, Neut % (Auto) 87.0 H, Lymph % (Auto) 10.0 L, [place] % (Auto) 3.0 L, Eos % (Auto) 0 L, Baso % (Auto) 0 L, Absolute Neuts (auto) 12.88 H 09/18/21 05:47: PT 23.8 H 09/18/21 05:47: NT-Pro-B Natriuret Pep 7912 H 09/18/21 05:47: Neutrophils (Manual) 87 H, Lymphocytes (Manual) 10 L, Monocytes (Manual) 3 L, Eosinophils (Manual) 0 L 09/18/21 22:13: Hgb 9.0 L, Hct 27.6 L 09/19/21 05:52: Creatinine 1.25 H, Est GFR (MDRD) Af Amer 52 A, Est GFR (MDRD) Non-Af 43 A, Glucose 131 H, Calcium 8.0 L 09/19/21 05:52: RBC 3.10 L, Hgb 9.7 L, Hct 29.9 L, MCH 31.3 H, MCHC 32.4 L, RDW 15.1 H, Plt Count 120 L, MPV 10.8 H, Neut % (Auto) 85.0 H, Lymph % (Auto) 8.8 L,[place] % (Auto) 4.9 L, Eos % (Auto) 0.6 L, Baso % (Auto) 0.1 L, Absolute Neuts (auto) 7.69 H, Absolute Lymphs (auto) 0.80 L 09/19/21 05:52: PT 30.8 H 09/19/21 05:52: Alkaline Phosphatase 120 H, Total Protein 5.9 L, Albumin 1.9 L, Albumin/Globulin Ratio 0.5 L Radiology-Impressions: See radiology reports in electronic medical record. Plan/Treatment Plan: Septic shock pyelonephritis, ecoli chao, likely vasomotor nephropathy, no prior baseline to compare with persistent afib in rvr, on chronic anticoagulation, supratherapeutic inr; hx of cardioversion in 2010 hx of dvt and pe covid ruled out acute hypxoic respiratory failue copd in mild exacerbation noted since 09/17 pulmonary edema, likely from fluid resuscitation. r/o underlying HF. no hx of chf per records. anemia, normocytic, stable thrombocytopenia, new HTN HLD chronic pain on chronic prescribed opioiod depression morbid obesity plan f/up blood cultures - negative urine culture. - ecoli stool culture. dc vanc continue Zosyn restarted metoprolol. continue telemetry hold arb or statin for now given chao. follow crea. will consider restarting tomorrow start lasix. i/o, daily wts. caution with hypotension keep k close to 4, mg close to 2. give mg home inhalers. breathing tx. avoided steroids in the setting of septic shock follow hg. no signs of overt blood loss. stabilizing at the range of 9 hold home warfarin. inr supra therapeutic home statin home norco, pramipexole, trazodone pt consult dvt ppx: home warfarin gi ppx: pepcid, renally dose reviewed records from Dr Licea from [facility] persistent afib with hx of cardioversion in 2010 hx of dvt and pe echo in 2019 ef 65%, no diastolic dysfunction. no heart failure dx New Orders: New Orders-Lab 09/19/21 05:52 Basic Metabolic Panel [CHM] DAILY@0400 CBC w/Auto Differential [HEM] DAILY@0400 Hepatic Function Panel [CHM] Routine INR [PT] [COA] DAILY@0400 09/20/21 04:00 Basic Metabolic Panel [CHM] DAILY@0400 CBC w/Auto Differential [HEM] DAILY@0400 INR [PT] [COA] DAILY@0400 Magnesium [CHM] Routine Phosphorus [CHM] Routine 09/20/21 11:30 Vancomycin Trough [CHM] Routine 09/21/21 04:00 Basic Metabolic Panel [CHM] DAILY@0400 CBC w/Auto Differential [HEM] DAILY@0400 INR [PT] [COA] DAILY@0400 09/22/21 04:00 Basic Metabolic Panel [CHM] DAILY@0400 CBC w/Auto Differential [HEM] DAILY@0400 INR [PT] [COA] DAILY@0400 New Orders-Radiology 09/19/21 08:00 ECHO W/DOPPLER CONTRAST [CAR] Routine New Orders-Nursing Care 09/19/21 07:33 Reassessment-Indwelling Urinary Catheter [RC] ONE 09/19/21 09:00 Obtain Old Medical Records [RC] ONE New Order-Therapy 09/19/21 09:52 IP PT Eval High Complex 45MIN [TS.PT] ONE Medications 09/19/21 07:06 Acetaminophen [Tylenol 325 mg Tablet] 650 mg PO Q4H PRN 09/19/21 07:07 Ondansetron HCl/Pf [Zofran 4 mg/2 ml Injection] 4 mg IVP Q4H PRN 09/19/21 09:00 Hydrocodone Bit/Acetaminophen [Palo 5/325 mg Tablet] 1 each PO BID PRN 09/19/21 11:00 Albuterol Sulfate [Ventolin (Pro Air) Hfa Inhaler] 2 puff IH RTQ6 Electronically Generated By:ADRIANE WAYNE MD Generated Date/Time: 09/19/21 1110 Electronically Signed By: ADRIANE WAYNE MD Signed Date/Time 09/19/21 1412 Co Signed Electronically By: Co Signed Date/Time: CC: [facility] Work Phone: [phone]) 799-896007-25-2022 Progress note Author ADRIANE WAYNE [facility] September 19, 2021 2:12pm Note Date/Time September 19, 2021 11:1 1am [facility] [address] [place] [address] HEALTH INFORMATION MANAGEMENT PROGRESS NOTE : [id number] Signed Patient: IVON WISEMAN Acct:[id number] MRUN: [id number] : 1955 Sex: F Loc: ICU AD M Date: 09/16/21 Room/Bed: 352-A DISC Date: Subjective Assessment Date Of Service: 09/19/21 Events Since Admission: IVON WISEMAN was admitted to [facility] UN[facility] service into room 352 on 09/16/21 at 16:17 for complaints of UTI. The patient's laboratory testing and diagnostic testing has been reviewed. Subjective Note: Yesterday, Levophed has been weaned off. had soft to watery diarrhea. So far blood pressure tolerating. Metoprolol has been restarted. Heart rate improved to 80s. patient seen today. still with orthopnea. nasal cannula on. reports sob on exertion. she has generalized weakness. denies fever, chills General: Confirms: Weakness, Fatigue. Denies: Fever, Chills, Sweats, Weight Gain, Weight Loss, Other ENT: Denies: Earache, Ear Discharge, Decreased Hearing, Tinnitus, Nose Congestion, Nose Drainage, Nasal Ulcers, Epitaxis, Sore Throat, Throat Swelling,Hoarseness, Loss Of Voice, Tongue Pain, Tongue Swelling, Lip Swelling, Dental Pain, Cervical, Other Respiratory: Confirms: Shortness of Breath, Dyspnea on Exertion. Denies: Cough,Wheezing, Sputum Production, Hemoptysis, Pleuritic Pain, Other Cardiovascular: Confirms: Orthopnea, Dyspnea on Exertion. Denies: Chest Pain- Sharp, Chest Pain-Heavy, Short of Breath, Paroxysmal Noc. Dyspnea, Edema, Palpitations, Light Headedness, Syncope, Diaphoresis, Claudication, Edema, Other Gastrointestinal: Confirms: Diarrhea. Denies: Nausea, Vomiting, Abdominal Pain,Constipation, Melena, Hematochezia, Other Genitourinary: Denies: Dysuria, Frequency, Incontinence, Hematuria, Retention, Other Musculoskeletal: Denies: Neck Pain, Shoulder Pain, Arm Pain, Back Pain, Hand Pain, Leg Pain, Foot Pain, Other Neurological: Confirms: Weakness. Denies: Numbness, Incoordination, Change in Speech, Confusion, Seizures, Other Objective Findings General: Yes: Alert, Oriented (X3), Cooperative/Pleasant, No acute distress, Other (fatigued, weak appearing ) HEENT: Yes: Atraumatic, PERRLA, Mucous membr. moist/pink, EOMI Neck: Yes: Supple, +2 carotid pulse wo bruit. No: JVD, Thyromegaly Lungs: Yes: Labored, Rales (L lung base), Diminished (on the bases), Exibits Shortness of [place]. No: Pursed Lip Breathing, Use of Accessory Muscles, Retracting Cardiovascular: Yes: Regular rate (irregular rhythm), Normal S2, Normal S1, No murmurs, Geriatric Assistant Rhythm (Sinus Rhythm). No: Gallops, Rubs, Ectopy Abdomen: Yes: Bowel Sounds X4, Soft, No Tenderness, Flatus. No: Hepatospenomegaly, Masses, Nausea/Vomiting, Emesis Present, Constipation, Diarrhea Genitourinary/Rectal: Yes: Deferred-Not Relevant Extremities: Yes: Normal pulses. No: Clubbing, Cyanosis, Edema, No tenderness/swelling, Mottling noted Skin: No: Rashes, Skin Breakdown, Significant lesions, Open Wound Present Neurological: Yes: Speech Clear, Normal tone, Sensation intact, Cognitive Ability Intact Psych/Mental Status: Yes: Mental status NL, Mood Appropriate. No: Hallucinations Vitals and I&O: Vital Signs Temperature 97.0 F 09/19/21 08:00 Pulse Rate 70 09/19/21 10:01 Respiratory Rate 20 09/19/21 07:30 Blood Pressure 151/62 09/19/21 10:01 O2 Sat by Pulse Oximetry(%) 98 09/19/21 10:01 FiO2 - Manual Entry Intake & Output 09/18/21 09/18/21 09/19/21 11:59 23:59 11:59 Intake Total 394 450 765 Output Total 650 2795 450 Balance -256 -775 315 Weight 246 lb 12.8 oz 250 lb 4.8 oz Intake: IV Intake 294 350 525 Levophed 4 mg/4 ml 94 Injection 8 mg In Sodium Chloride 0.9 % 250 ml 242 ml @ 0.1 MCG/KG/MIN 20. 888 mls/hr IV CONT PRN Rx #:[id number] Sodium Chloride 0.9 % 325 1000 ml 1,000 ml @ 125 mls/hr IV .Q8H PRN Rx#: [id number] Vancocin 1 Gram Injection 250 1.5 gm In Sodium Chloride 0.9 % 250 ml 250 ml @ 166.667 mls/hr IVPB Q24H MATT Rx#:[id number] Zosyn 4.5 gm Injection 4. 200 100 200 5 gm In Sodium Chloride 0 .9 % 100 ml 100 ml @ 100 mls/hr IVPB Q8H MATT Rx#: [id number] Intake ml 100 100 240 Output: Output ml 650 1225 450 Reyes 650 1225 400 Rectal tube 50 Other: Output Urine Nonnumeric/ See I&O Comment Output stool Nonnumeric/ Comment Stool large loose small liquid Laboratory-Last 48 hrs: 09/19/21 05:52 09/19/21 05:52 Laboratory Results-last 24 hrs 09/18/21 05:47: Creatinine 1.57 H, Est GFR (MDRD) Af Amer 40 A, Est GFR (MDRD) Non-Af 33 A, Glucose 140 H, Calcium 7.7 L 09/18/21 05:47: WBC 14.8 H, RBC 2.74 L, Hgb 8.7 L, Hct 26.7 L, MCH 31.8 H, MCHC 32.6 L, RDW 15.4 H, Neut % (Auto) 87.0 H, Lymph % (Auto) 10.0 L, [place] % (Auto) 3.0 L, Eos % (Auto) 0 L, Baso % (Auto) 0 L, Absolute Neuts (auto) 12.88 H 09/18/21 05:47: PT 23.8 H 09/18/21 05:47: NT-Pro-B Natriuret Pep 7912 H 09/18/21 05:47: Neutrophils (Manual) 87 H, Lymphocytes (Manual) 10 L, Monocytes (Manual) 3 L, Eosinophils (Manual) 0 L 09/18/21 22:13: Hgb 9.0 L, Hct 27.6 L 09/19/21 05:52: Creatinine 1.25 H, Est GFR (MDRD) Af Amer 52 A, Est GFR (MDRD) Non-Af 43 A, Glucose 131 H, Calcium 8.0 L 09/19/21 05:52: RBC 3.10 L, Hgb 9.7 L, Hct 29.9 L, MCH 31.3 H, MCHC 32.4 L, RDW 15.1 H, Plt Count 120 L, MPV 10.8 H, Neut % (Auto) 85.0 H, Lymph % (Auto) 8.8 L,[place] % (Auto) 4.9 L, Eos % (Auto) 0.6 L, Baso % (Auto) 0.1 L, Absolute Neuts (auto) 7.69 H, Absolute Lymphs (auto) 0.80 L 09/19/21 05:52: PT 30.8 H 09/19/21 05:52: Alkaline Phosphatase 120 H, Total Protein 5.9 L, Albumin 1.9 L, Albumin/Globulin Ratio 0.5 L Radiology-Impressions: See radiology reports in electronic medical record. Plan/Treatment Plan: Septic shock pyelonephritis, ecoli chao, likely vasomotor nephropathy, no prior baseline to compare with persistent afib in rvr, on chronic anticoagulation, supratherapeutic inr; hx of cardioversion in 2010 hx of dvt and pe covid ruled out acute hypxoic respiratory failue copd in mild exacerbation noted since 09/17 pulmonary edema, likely from fluid resuscitation. r/o underlying HF. no hx of chf per records. anemia, normocytic, stable thrombocytopenia, new HTN HLD chronic pain on chronic prescribed opioiod depression morbid obesity plan f/up blood cultures - negative urine culture. - ecoli stool culture. dc vanc continue Zosyn restarted metoprolol. continue telemetry hold arb or statin for now given chao. follow crea. will consider restarting tomorrow start lasix. i/o, daily wts. caution with hypotension keep k close to 4, mg close to 2. give mg home inhalers. breathing tx. avoided steroids in the setting of septic shock follow hg. no signs of overt blood loss. stabilizing at the range of 9 hold home warfarin. inr supra therapeutic home statin home norco, pramipexole, trazodone pt consult dvt ppx: home warfarin gi ppx: pepcid, renally dose reviewed records from Dr Licea from [facility] persistent afib with hx of cardioversion in 2010 hx of dvt and pe echo in 2019 ef 65%, no diastolic dysfunction. no heart failure dx New Orders: New Orders-Lab 09/19/21 05:52 Basic Metabolic Panel [CHM] DAILY@0400 CBC w/Auto Differential [HEM] DAILY@0400 Hepatic Function Panel [CHM] Routine INR [PT] [COA] DAILY@0400 09/20/21 04:00 Basic Metabolic Panel [CHM] DAILY@0400 CBC w/Auto Differential [HEM] DAILY@0400 INR [PT] [COA] DAILY@0400 Magnesium [CHM] Routine Phosphorus [CHM] Routine 09/20/21 11:30 Vancomycin Trough [CHM] Routine 09/21/21 04:00 Basic Metabolic Panel [CHM] DAILY@0400 CBC w/Auto Differential [HEM] DAILY@0400 INR [PT] [COA] DAILY@0400 09/22/21 04:00 Basic Metabolic Panel [CHM] DAILY@0400 CBC w/Auto Differential [HEM] DAILY@0400 INR [PT] [COA] DAILY@0400 New Orders-Radiology 09/19/21 08:00 ECHO W/DOPPLER CONTRAST [CAR] Routine New Orders-Nursing Care 09/19/21 07:33 Reassessment-Indwelling Urinary Catheter [RC] ONE 09/19/21 09:00 Obtain Old Medical Records [RC] ONE New Order-Therapy 09/19/21 09:52 IP PT Eval High Complex 45MIN [TS.PT] ONE Medications 09/19/21 07:06 Acetaminophen [Tylenol 325 mg Tablet] 650 mg PO Q4H PRN 09/19/21 07:07 Ondansetron HCl/Pf [Zofran 4 mg/2 ml Injection] 4 mg IVP Q4H PRN 09/19/21 09:00 Hydrocodone Bit/Acetaminophen [Palo 5/325 mg Tablet] 1 each PO BID PRN 09/19/21 11:00 Albuterol Sulfate [Ventolin (Pro Air) Hfa Inhaler] 2 puff IH RTQ6 Electronically Generated By:ADRIANE WAYNE MD Generated Date/Time: 09/19/21 1110 Electronically Signed By: ADRIANE WAYNE MD Signed Date/Time 09/19/21 1412 Co Signed Electronically By: Co Signed Date/Time: CC: [facility] Work Phone: [phone]) 773-980807-24-2022 Progress note Author ADRIANE WAYNE [facility] September 18, 2021 4:22pm Note Date/Time September 18, 2021 4:19 pm [facility] [address] [place] [id number] HEALTH INFORMATION MANAGEMENT PROGRESS NOTE : [id number] Signed Patient: IVON WISEMAN Acct:[id number] MRUN: [id number] : 1955 Sex: F Loc: ICU AD M Date: 09/16/21 Room/Bed: 352-A DISC Date: Subjective Assessment Date Of Service: 09/18/21 Events Since Admission: IVON WISEMAN was admitted to [facility]ARE UN[facility] service into room 352 on 09/16/21 at 16:17 for complaints of UTI. The patient's laboratory testing and diagnostic testing has been reviewed. Subjective Note: last night, patient was noted to be more wheezy, sob when laying flight she was started on steroids, inhalers, breahting tx, fluids dc'd patietn seen today, reports fatigue denies any chest pain, palpitations r sided back pain improve still with orthopnea, wheezing complains of nausea, diarrhea soft to watery General: Confirms: Fatigue. Denies: Fever, Chills, Sweats, Weakness, Weight Gain, Weight Loss, Other ENT: Denies: Earache, Ear Discharge, Decreased Hearing, Tinnitus, Nose Congestion, Nose Drainage, Nasal Ulcers, Epitaxis, Sore Throat, Throat Swelling,Hoarseness, Loss Of Voice, Tongue Pain, Tongue Swelling, Lip Swelling, Dental Pain, Cervical, Other Respiratory: Confirms: Shortness of Breath, Wheezing, Dyspnea on Exertion. Denies: Cough, Sputum Production, Hemoptysis, Pleuritic Pain, Other Cardiovascular: Confirms: Orthopnea, Short of Breath, Dyspnea on Exertion. Denies: Chest Pain-Sharp, Chest Pain-Heavy, Paroxysmal Noc. Dyspnea, Edema, Palpitations, Light Headedness, Syncope, Diaphoresis, Claudication, Edema, Other Gastrointestinal: Confirms: Nausea, Diarrhea. Denies: Vomiting, Abdominal Pain,Constipation, Melena, Hematochezia, Other Genitourinary: Denies: Dysuria, Frequency, Incontinence, Hematuria, Retention, Other Musculoskeletal: Denies: Neck Pain, Shoulder Pain, Arm Pain, Back Pain, Hand Pain, Leg Pain, Foot Pain, Other Neurological: Confirms: Weakness. Denies: Numbness, Incoordination, Change in Speech, Confusion, Seizures, Other Objective Findings General: Yes: Alert, Oriented (X3), Cooperative/Pleasant, No acute distress, Other (fatigued appearing) HEENT: Yes: Atraumatic, PERRLA, Mucous membr. moist/pink, EOMI. No: Vision Impaired, Hearing Impaired Neck: Yes: Supple, +2 carotid pulse wo bruit. No: JVD, Thyromegaly Lungs: Yes: Labored, Wheezing (occasional), Diminished (on the bases), Use of Accessory Muscles. No: Exibits Shortness of [place], Pursed Lip Breathing, Retracting Cardiovascular: Yes: Regular rate, Normal S2, Normal S1, No murmurs, Geriatric Assistant Rhythm (Sinus Rhythm). No: Gallops, Rubs, Ectopy Abdomen: Yes: Bowel Sounds X4, Soft, Large/Obese, No Tenderness, Flatus. No: Hepatospenomegaly, Masses, Nausea/Vomiting, Emesis Present, Constipation, Diarrhea Genitourinary/Rectal: Yes: Deferred-Not Relevant Extremities: Yes: Normal pulses. No: Clubbing, Cyanosis, Edema, No tenderness/swelling, Mottling noted Skin: No: Rashes, Skin Breakdown, Significant lesions, Open Wound Present Neurological: Yes: Speech Clear, Normal tone, Sensation intact, Cognitive Ability Intact Psych/Mental Status: Yes: Mental status NL, Mood Appropriate. No: Hallucinations Vitals and I&O: Vital Signs Temperature 97.2 F 09/18/21 08:00 Pulse Rate 91 09/18/21 08:30 Respiratory Rate 24 H 09/18/21 08:00 Blood Pressure 123/62 09/18/21 11:00 O2 Sat by Pulse Oximetry(%) 100 09/18/21 08:30 FiO2 - Manual Entry Intake & Output 09/17/21 09/18/21 09/18/21 23:59 11:59 23:59 Intake Total 2829 294 Output Total 750 650 Balance 2079 -356 Weight 246 lb 12.8 oz Intake: IV Intake 2349 194 Levophed 4 mg/4 ml 324 94 Injection 8 mg In Sodium Chloride 0.9 % 250 ml 242 ml @ 0.1 MCG/KG/MIN 20. 888 mls/hr IV CONT PRN Rx #:[id number] Sodium Chloride 0.9 % 1675 1000 ml 1,000 ml @ 125 mls/hr IV .Q8H PRN Rx#: [id number] Sodium Chloride 0.9 % 0 1000 ml 1,000 ml @ 80 mls /hr IV .[id number] PRN Rx#: [id number] Vancocin 1 Gram Injection 250 1.5 gm In Sodium Chloride 0.9 % 250 ml 250 ml @ 166.667 mls/hr IVPB Q24H MATT Rx#:[id number] Zosyn 4.5 gm Injection 4. 100 100 5 gm In Sodium Chloride 0 .9 % 100 ml 100 ml @ 100 mls/hr IVPB Q8H MATT Rx#: [id number] Intake ml 480 100 Output: Output ml 750 650 Reyes 750 650 Laboratory-Last 48 hrs: 09/18/21 05:47 09/18/21 05:47 Laboratory Results-last 24 hrs 09/17/21 04:41: Creatinine 2.06 H, Est GFR (MDRD) Af Amer 29 A, Est GFR (MDRD) Non-Af 24 A, Glucose 187 H, Phosphorus 1.0 L, Magnesium 2.6 H 09/17/21 04:41: WBC 11.1 H, RBC 3.48 L, Hgb 10.9 L, MCH 31.3 H, MCHC 32.2 L, RDW15.0 H, Neut % (Auto) 87.7 H, Lymph % (Auto) 5.3 L, [place] % (Auto) 5.4 L, Eos % (Auto) 0 L, Baso % (Auto) 0.1 L, Abs Immat Gran (man) 0.17 H, Absolute Neuts (auto) 9.69 H, Absolute Lymphs (auto) 0.60 L, Immature Gran % 1.50 H 09/17/21 04:41: PT 16.7 H 09/17/21 04:41: Total Bilirubin 1.81 H, Direct Bilirubin 1.12 H, Alkaline Phosphatase 125 H, Albumin 2.4 L, Albumin/Globulin Ratio 0.6 L 09/17/21 06:15: ABG pH 7.312 L, ABG pO2 40.4 L, ABG HCO3 20.8 L, ABG O2 Saturation 72.0 L*, ABG Base Excess -5.1 L, ABG Hemoglobin 10.3 L, ABG Oxyhemoglobin 71.7 L*, ABG Deoxyhemoglobin 27.9 H* 09/18/21 05:47: Creatinine 1.57 H, Est GFR (MDRD) Af Amer 40 A, Est GFR (MDRD) Non-Af 33 A, Glucose 140 H, Calcium 7.7 L 09/18/21 05:47: WBC 14.8 H, RBC 2.74 L, Hgb 8.7 L, Hct 26.7 L, MCH 31.8 H, MCHC 32.6 L, RDW 15.4 H, Neut % (Auto) 87.0 H, Lymph % (Auto) 10.0 L, [place] % (Auto) 3.0 L, Eos % (Auto) 0 L, Baso % (Auto) 0 L, Absolute Neuts (auto) 12.88 H 09/18/21 05:47: PT 23.8 H 09/18/21 05:47: NT-Pro-B Natriuret Pep 7912 H 09/18/21 05:47: Neutrophils (Manual) 87 H, Lymphocytes (Manual) 10 L, Monocytes (Manual) 3 L, Eosinophils (Manual) 0 L Radiology-Impressions: See radiology reports in electronic medical record. Plan/Treatment Current Plan: PCP for Medical Management Plan: Septic shock pyelonephritis, ecoli chao, likely vasomotor nephropathy, no prior baseline to compare with afib in rvr, on chronic anticoagulation covid ruled out anemia, normocytic copd not in acute exacerbation HTN HLD hx of chf per patient report, currently hypovolemic chronic pain on chronic prescribed opioiod depression morbid obesity f/up blood cultures urine culture. - ecoli Vanco Zosyn off Levophed this am, continue to monitor bp dc'd fluids holding off diuretic given for todya, monitor bp stool culture. hold arb or statin for now given chao. follow crea holding home metoprolol given low blood pressure. metop iv prn for hr >120 keep k close to 4, mg close to 2. give mg follow hg. no signs of overt blood loss home warfarin. inr daily telemetry home statin home norco, pramipexole, trazodone dvt ppx: home warfarin gi ppx: pepcid, renally dose cct 34min New Orders: New Orders-Lab 09/18/21 15:00 STOOL CULTURE. [MIC2] Routine 09/19/21 04:00 Basic Metabolic Panel [CHM] DAILY@0400 CBC w/Auto Differential [HEM] DAILY@0400 INR [PT] [COA] DAILY@0400 09/20/21 11:30 Vancomycin Trough [CHM] Routine New Orders-Radiology 09/19/21 08:00 ECHO W/DOPPLER CONTRAST [CAR] Routine New Orders-Nursing Care 09/18/21 09:00 Obtain Old Medical Records [RC] ONE 09/18/21 15:15 Rectal Tube [RC] QS 09/19/21 07:33 Reassessment-Indwelling Urinary Catheter [RC] ONE Medications 09/18/21 20:00 Budesonide/Formoterol Fumarate [Symbicort 160-4.5 Mcg Inhaler] See Dose Instructions IH RTBID Electronically Generated By:ADRIANE WAYNE MD Generated Date/Time: 09/18/211616 Electronically Signed By: ADRIANE WAYNE MD Signed Date/Time 09/18/211621 Co Signed Electronically By: Co Signed Date/Time: CC: [facility] Work Phone: [phone] Progress note Author ADRIANE WAYNE [facility] September 18, 2021 4:22pm Note Date/Time September 18, 2021 4:19 pm [facility] [address] [place] [address] HEALTH INFORMATION MANAGEMENT PROGRESS NOTE : [phone] Signed Patient: IVON WISEMAN Acct:[id number] MRUN: [id number] : 1955 Sex: F Loc: ICU AD M Date: 09/16/21 Room/Bed: 352-A DISC Date: Subjective Assessment Date Of Service: 09/18/21 Events Since Admission: IVON WISEMAN was admitted to [facility] service into room 352 on 09/16/21 at 16:17 for complaints of UTI. The patient's laboratory testing and diagnostic testing has been reviewed. Subjective Note: last night, patient was noted to be more wheezy, sob when laying flight she was started on steroids, inhalers, breahting tx, fluids dc'd patietn seen today, reports fatigue denies any chest pain, palpitations r sided back pain improve still with orthopnea, wheezing complains of nausea, diarrhea soft to watery General: Confirms: Fatigue. Denies: Fever, Chills, Sweats, Weakness, Weight Gain, Weight Loss, Other ENT: Denies: Earache, Ear Discharge, Decreased Hearing, Tinnitus, Nose Congestion, Nose Drainage, Nasal Ulcers, Epitaxis, Sore Throat, Throat Swelling,Hoarseness, Loss Of Voice, Tongue Pain, Tongue Swelling, Lip Swelling, Dental Pain, Cervical, Other Respiratory: Confirms: Shortness of Breath, Wheezing, Dyspnea on Exertion. Denies: Cough, Sputum Production, Hemoptysis, Pleuritic Pain, Other Cardiovascular: Confirms: Orthopnea, Short of Breath, Dyspnea on Exertion. Denies: Chest Pain-Sharp, Chest Pain-Heavy, Paroxysmal Noc. Dyspnea, Edema, Palpitations, Light Headedness, Syncope, Diaphoresis, Claudication, Edema, Other Gastrointestinal: Confirms: Nausea, Diarrhea. Denies: Vomiting, Abdominal Pain,Constipation, Melena, Hematochezia, Other Genitourinary: Denies: Dysuria, Frequency, Incontinence, Hematuria, Retention, Other Musculoskeletal: Denies: Neck Pain, Shoulder Pain, Arm Pain, Back Pain, Hand Pain, Leg Pain, Foot Pain, Other Neurological: Confirms: Weakness. Denies: Numbness, Incoordination, Change in Speech, Confusion, Seizures, Other Objective Findings General: Yes: Alert, Oriented (X3), Cooperative/Pleasant, No acute distress, Other (fatigued appearing) HEENT: Yes: Atraumatic, PERRLA, Mucous membr. moist/pink, EOMI. No: Vision Impaired, Hearing Impaired Neck: Yes: Supple, +2 carotid pulse wo bruit. No: JVD, Thyromegaly Lungs: Yes: Labored, Wheezing (occasional), Diminished (on the bases), Use of Accessory Muscles. 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 No: Gallops, Rubs, Ectopy Abdomen: Yes: Bowel Sounds X4, Soft, Large/Obese, No Tenderness, Flatus. No: Hepatospenomegaly, Masses, Nausea/Vomiting, Emesis Present, Constipation, Diarrhea Genitourinary/Rectal: Yes: Deferred-Not Relevant Extremities: Yes: Normal pulses. No: Clubbing, Cyanosis, Edema, No tenderness/swelling, Mottling noted Skin: No: Rashes, Skin Breakdown, Significant lesions, Open Wound Present Neurological: Yes: Speech Clear, Normal tone, Sensation intact, Cognitive Ability Intact Psych/Mental Status: Yes: Mental status NL, Mood Appropriate. No: Hallucinations Vitals and I&O: Vital Signs Temperature 97.2 F 09/18/21 08:00 Pulse Rate 91 09/18/21 08:30 Respiratory Rate 24 H 09/18/21 08:00 Blood Pressure 123/62 09/18/21 11:00 O2 Sat by Pulse Oximetry(%) 100 09/18/21 08:30 FiO2 - Manual Entry Intake & Output 09/17/21 09/18/21 09/18/21 23:59 11:59 23:59 Intake Total 2829 294 Output Total 238 650 Balance 2079 -356 Weight 246 lb 12.8 oz Intake: IV Intake 2349 194 Levophed 4 mg/4 ml 324 94 Injection 8 mg In Sodium Chloride 0.9 % 250 ml 242 ml @ 0.1 MCG/KG/MIN 20. 888 mls/hr IV CONT PRN Rx #:[id number] Sodium Chloride 0.9 % 1675 1000 ml 1,000 ml @ 125 mls/hr IV .Q8H PRN Rx#: [id number] Sodium Chloride 0.9 % 0 1000 ml 1,000 ml @ 80 mls /hr IV .[id number] PRN Rx#: [id number] Vancocin 1 Gram Injection 250 1.5 gm In Sodium Chloride 0.9 % 250 ml 250 ml @ 166.667 mls/hr IVPB Q24H [facility] Rx#:[id number] Zosyn 4.5 gm Injection 4. 100 100 5 gm In Sodium Chloride 0 .9 % 100 ml 100 ml @ 100 mls/hr IVPB Q8H [facility] Rx#: [id number] Intake ml 480 100 Output: Output ml 750 650 Reyes 750 650 Laboratory-Last 48 hrs: 09/18/21 05:47 09/18/21 05:47 Laboratory Results-last 24 hrs 09/17/21 04:41: Creatinine 2.06 H, Est GFR (MDRD) Af Amer 29 A, Est GFR (MDRD) Non-Af 24 A, Glucose 187 H, Phosphorus 1.0 L, Magnesium 2.6 H 09/17/21 04:41: WBC 11.1 H, RBC 3.48 L, Hgb 10.9 L, MCH 31.3 H, MCHC 32.2 L, RDW15.0 H, Neut % (Auto) 87.7 H, Lymph % (Auto) 5.3 L, [place] % (Auto) 5.4 L, Eos % (Auto) 0 L, Baso % (Auto) 0.1 L, Abs Immat Gran (man) 0.17 H, Absolute Neuts (auto) 9.69 H, Absolute Lymphs (auto) 0.60 L, Immature Gran % 1.50 H 09/17/21 04:41: PT 16.7 H 09/17/21 04:41: Total Bilirubin 1.81 H, Direct Bilirubin 1.12 H, Alkaline Phosphatase 125 H, Albumin 2.4 L, Albumin/Globulin Ratio 0.6 L 09/17/21 06:15: ABG pH 7.312 L, ABG pO2 40.4 L, ABG HCO3 20.8 L, ABG O2 Saturation 72.0 L*, ABG Base Excess -5.1 L, ABG Hemoglobin 10.3 L, ABG Oxyhemoglobin 71.7 L*, ABG Deoxyhemoglobin 27.9 H* 09/18/21 05:47: Creatinine 1.57 H, Est GFR (MDRD) Af Amer 40 A, Est GFR (MDRD) Non-Af 33 A, Glucose 140 H, Calcium 7.7 L 09/18/21 05:47: WBC 14.8 H, RBC 2.74 L, Hgb 8.7 L, Hct 26.7 L, MCH 31.8 H, MCHC 32.6 L, RDW 15.4 H, Neut % (Auto) 87.0 H, Lymph % (Auto) 10.0 L, [place] % (Auto) 3.0 L, Eos % (Auto) 0 L, Baso % (Auto) 0 L, Absolute Neuts (auto) 12.88 H 09/18/21 05:47: PT 23.8 H 09/18/21 05:47: NT-Pro-B Natriuret Pep 7912 H 09/18/21 05:47: Neutrophils (Manual) 87 H, Lymphocytes (Manual) 10 L, Monocytes (Manual) 3 L, Eosinophils (Manual) 0 L Radiology-Impressions: See radiology reports in electronic medical record. Plan/Treatment Current Plan: PCP for Medical Management Plan: Septic shock pyelonephritis, ecoli chao, likely vasomotor nephropathy, no prior baseline to compare with afib in rvr, on chronic anticoagulation covid ruled out anemia, normocytic copd not in acute exacerbation HTN HLD hx of chf per patient report, currently hypovolemic chronic pain on chronic prescribed opioiod depression morbid obesity f/up blood cultures urine culture. - ecoli Vanco Zosyn off Levophed this am, continue to monitor bp dc'd fluids holding off diuretic given for todya, monitor bp stool culture. hold arb or statin for now given chao. follow crea holding home metoprolol given low blood pressure. metop iv prn for hr >120 keep k close to 4, mg close to 2. give mg follow hg. no signs of overt blood loss home warfarin. inr daily telemetry home statin home norco, pramipexole, trazodone dvt ppx: home warfarin gi ppx: pepcid, renally dose cct 34min New Orders: New Orders-Lab 09/18/21 15:00 STOOL CULTURE. [MIC2] Routine 09/19/21 04:00 Basic Metabolic Panel [CHM] DAILY@0400 CBC w/Auto Differential [HEM] DAILY@0400 INR [PT] [COA] DAILY@0400 09/20/21 11:30 Vancomycin Trough [CHM] Routine New Orders-Radiology 09/19/21 08:00 ECHO W/DOPPLER CONTRAST [CAR] Routine New Orders-Nursing Care 09/18/21 09:00 Obtain Old Medical Records [RC] ONE 09/18/21 15:15 Rectal Tube [RC] QS 09/19/21 07:33 Reassessment-Indwelling Urinary Catheter [RC] ONE Medications 09/18/21 20:00 Budesonide/Formoterol Fumarate [Symbicort 160-4.5 Mcg Inhaler] See Dose Instructions IH RTBID Electronically Generated By:ADRIANE WAYNE MD Generated Date/Time: 09/18/21 161 Electronically Signed By: ADRINAE WAYNE MD Signed Date/Time 09/18/211621 Co Signed Electronically By: Co Signed Date/Time: CC: [facility] Work Phone: [phone]) 972-192607-23-2022 Progress note Author ADRIANE WAYNE [facility] September 17, 2021 5:54pm Note Date/Time September 17, 2021 5:12 pm [facility] [address] [place] [id number] HEALTH INFORMATION MANAGEMENT PROGRESS NOTE : [phone] Signed with Mimi Patient: IVON WISEMAN Acct:[id number] MRUN: [id number] : 1955 Sex: F Loc: ICU AD M Date: 09/16/21 Room/Bed: 352-A DISC Date: ADDENDUM CCT 35min Addendum: <Electronically signed by ADRIANE WAYNE MD> Signed Date/Time: 09/17/21 6504 Co-Signed: Co-signed Date/Time Subjective Assessment Date Of Service: 09/17/21 Events Since Admission: IVON IWSEMAN was admitted to [facility] service into room 352 on 09/16/21 at 16:17 for complaints of UTI. The patient's laboratory testing and diagnostic testing has been reviewed. Subjective Note: Overnight, despite being on ceftriaxone, patient was still spiking fevers up to 103 Antibiotics were broadened to Vanco and Zosyn She had A. fib RVR. 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 Attempted to give fluid bolus however this did not improve She also received digoxin once, dosing was used with caution given CHAO Patient was transferred to the ICU, Levophed was started, additional fluid bolusgiven Patient seen, fatigued appearing. Diaphoretic, clammy extremities Reports right-sided back pain. No midline pain No leg swelling No cough or rash General: Confirms: Weakness, Fatigue. Denies: Fever, Chills, Sweats, Weight Gain, Weight Loss, Other ENT: Denies: Earache, Ear Discharge, Decreased Hearing, Tinnitus, Nose Congestion, Nose Drainage, Nasal Ulcers, Epitaxis, Sore Throat, Throat Swelling, Hoarseness, Loss Of Voice, Tongue Pain, Tongue Swelling, Lip Swelling, Dental Pain, Cervical, Other Respiratory: Denies: Cough, Shortness of Breath, Wheezing, Sputum Production, Hemoptysis, Dyspnea on Exertion, Pleuritic Pain, Other Cardiovascular: Denies: Chest Pain-Sharp, Chest Pain-Heavy, Orthopnea, Short of Breath, Dyspnea on Exertion, Paroxysmal Noc. Dyspnea, Edema, Palpitations, LightHeadedness, Syncope, Diaphoresis, Claudication, Edema, Other Gastrointestinal: Denies: Nausea, Vomiting, Abdominal Pain, Diarrhea, Constipation, Melena, Hematochezia, Other Genitourinary: Denies: Dysuria, Frequency, Incontinence, Hematuria, Retention, Other Musculoskeletal: Denies: Neck Pain, Shoulder Pain, Arm Pain, Back Pain, Hand Pain, Leg Pain, Foot Pain, Other Neurological: Confirms: Weakness. Denies: Numbness, Incoordination, Change in Speech, Confusion, Seizures, Other Objective Findings General: Yes: Alert, Oriented, Cooperative/Pleasant, Mild distress, Other (Weak appearing) HEENT: Yes: Atraumatic, PERRLA, Mucous membr. moist/pink, EOMI. No: Vision Impaired, Hearing Impaired Neck: Yes: Supple. No: JVD Lungs: Yes: Clear to auscultation, Normal air movement, Unlabored. No: Exibits Shortness of [place], Pursed Lip Breathing, Use of Accessory Muscles, Retracting Cardiovascular: Yes: Regular rate, Normal S2, Normal S1, No murmurs, Geriatric Assistant Rhythm (Sinus Rhythm). No: Gallops, Rubs, Ectopy Abdomen: Yes: Bowel Sounds X4, Soft, Large/Obese, No Tenderness, Flatus. No: Hepatospenomegaly, Masses, Nausea/Vomiting, Emesis Present, Constipation, Diarrhea Genitourinary/Rectal: Yes: Deferred-Not Relevant Extremities: Yes: Normal pulses, Other (No midline tenderness. No CVA tenderness today). No: Clubbing, Cyanosis, Edema, No tenderness/swelling, Mottling noted Skin: No: Rashes, Skin Breakdown, Significant lesions, Open Wound Present Neurological: Yes: Speech Clear, Normal tone, Sensation intact, Cognitive Ability Intact Psych/Mental Status: Yes: Mental status NL, Mood Appropriate. No: Hallucinations Vitals and I&O: Vital Signs Temperature 97.3 F 09/17/21 16:34 Pulse Rate 74 09/17/21 17:00 Respiratory Rate 26 H 09/17/21 11:30 Blood Pressure 107/64 09/17/21 17:00 O2 Sat by Pulse Oximetry(%) 99 09/17/21 17:00 FiO2 - Manual Entry Intake & Output 09/16/21 09/17/21 09/17/21 23:59 11:59 23:59 Intake Total 1098 3811 1712 Output Total 250 Balance 1098 3621 1712 Weight 245 lb 9.6 oz Intake: IV Intake 1098 3811 1472 Lactated Ringers 1000 ml 1000 1,000 ml @ Wide Open IV . Q0M STA Rx#:[id number] Levophed 4 mg/4 ml 230 222 Injection 8 mg In Sodium Chloride 0.9 % 250 ml 242 ml @ 0.1 MCG/KG/MIN 20. 888 mls/hr IV CONT PRN Rx #:[id number] MAG SULFATE 4 GM PREMIX 4 100 gm In 100 ml @ 50 mls/hr IVPB ONE ONE Rx#: [id number] Rocephin 1 Gram Injection 50 1 gm In Sodium Chloride 0.9 % 50 ml 50 ml @ 100 mls/hr IVPB STAT STA Rx#: [id number] Sodium Chloride 0.9 % 1000 1000 ml 1,000 ml @ 125 mls/hr IV .Q8H PRN Rx#: [id number] Sodium Chloride 0.9 % 1000 1000 1000 ml 1,000 ml @ 500 mls/hr IV .Q2H PRN Rx#: [id number] Sodium Chloride 0.9 % 48 331 0 1000 ml 1,000 ml @ 80 mls /hr IV .[id number] PRN Rx#: [id number] Sodium Chloride 0.9 % 1000 1000 ml 1,000 ml @ 999 mls/hr IV .Q1H1M ONE Rx#: [id number] Vancocin 1 Gram Injection 250 1.5 gm In Sodium Chloride 0.9 % 250 ml 250 ml @ 166.667 mls/hr IVPB Q24H [facility] Rx#:[id number] Zosyn 3.375 gm Injection 50 3.375 gm In Sodium Chloride 0.9 % 50 ml 50 ml @ 100 mls/hr IVPB Q6H [facility] Rx#:[id number] Zosyn 4.5 gm Injection 4. 100 5 gm In Sodium Chloride 0 .9 % 100 ml 100 ml @ 100 mls/hr IVPB Q8H [facility] Rx#: [id number] Intake ml 240 Output: Output ml 200 Reyes 200 Output, Urine Amount 50 Other: Oral Intake Size Oral Scant Output Urine Nonnumeric/ Comment Urine unmeasured x 2 Laboratory-Last 48 hrs: 09/17/21 04:41 09/17/21 04:41 Laboratory Results-last 24 hrs 09/16/21 14:52: MCV 101.8 H, MCH 31.6 H, MCHC 31.0 L, RDW 14.7 H, Neut % (Auto) 87.2 H, Lymph % (Auto) 6.1 L, Eos % (Auto) 0.1 L, Absolute Neuts (auto) 9.18 H, Absolute Lymphs (auto) 0.60 L 09/16/21 14:52: Creatinine 1.37 H, Est GFR (MDRD) Af Amer 46 A, Est GFR (MDRD) Non-Af 38 A, Glucose 140 H, Total Bilirubin 1.23 H, Alkaline Phosphatase 119 H, Albumin 3.0 L, Albumin/Globulin Ratio 0.7 L 09/16/21 15:19: PT 16.6 H 09/16/21 15:20: Urine Color Dark yellow A, Urine Blood 50 A, Urine Nitrite Positive A, Urine Bilirubin 1 A, Ur Leukocyte Esterase 2+ A 09/17/21 04:41: Creatinine 2.06 H, Est GFR (MDRD) Af Amer 29 A, Est GFR (MDRD) Non-Af 24 A, Glucose 187 H, Phosphorus 1.0 L, Magnesium 2.6 H 09/17/21 04:41: WBC 11.1 H, RBC 3.48 L, Hgb 10.9 L, MCH 31.3 H, MCHC 32.2 L, RDW15.0 H, Neut % (Auto) 87.7 H, Lymph % (Auto) 5.3 L, [place] % (Auto) 5.4 L, Eos % (Auto) 0 L, Baso % (Auto) 0.1 L, Abs Immat Gran (man) 0.17 H, Absolute Neuts (auto) 9.69 H, Absolute Lymphs (auto) 0.60 L, Immature Gran % 1.50 H 09/17/21 04:41: PT 16.7 H 09/17/21 04:41: Total Bilirubin 1.81 H, Direct Bilirubin 1.12 H, Alkaline Phosphatase 125 H, Albumin 2.4 L, Albumin/Globulin Ratio 0.6 L 09/17/21 06:15: ABG pH 7.312 L, ABG pO2 40.4 L, ABG HCO3 20.8 L, ABG O2 Saturation 72.0 L*, ABG Base Excess -5.1 L, ABG Hemoglobin 10.3 L, ABG Oxyhemoglobin 71.7 L*, ABG Deoxyhemoglobin 27.9 H* Radiology-Impressions: See radiology reports in electronic medical record. Plan/Treatment Plan: Septic shock pyelonephritis chao, likely vasomotor nephropathy, no prior baseline to compare with afib in rvr, on chronic anticoagulation, subtherapeutic r/o covid anemia, normocytic copd not in acute exacerbation HTN HLD hx of chf per patient report, currently hypovolemic chronic pain on chronic prescribed opioiod depression morbid obesity f/up blood cultures, urine culture. Preliminary showing heavy gram-negative bacilli Vanco Zosyn Continue Levophed Continue fluids, will continue to reassess fluid status hold arb or statin for now given chao. follow crea DC home metoprolol given low blood pressure. metop iv prn for hr >120 keep k close to 4, mg close to 2. give mg Creatinine worse today,+hypotension follow hg. no signs of overt blood loss home warfarin. inr daily telemetry home statin home norco, pramipexole, trazodone dvt ppx: home warfarin gi ppx: pepcid, renally dose New Orders: New Orders-Lab 09/18/21 04:00 Basic Metabolic Panel [CHM] DAILY@0400 CBC w/Auto Differential [HEM] DAILY@0400 INR [PT] [COA] DAILY@0400 09/19/21 04:00 Basic Metabolic Panel [CHM] DAILY@0400 CBC w/Auto Differential [HEM] DAILY@0400 INR [PT] [COA] DAILY@0400 New Orders-Nursing Care 09/19/21 07:33 Reassessment-Indwelling Urinary Catheter [RC] ONE Medications 09/17/21 09:00 Oxybutynin Chloride [Ditropan Xl 5 mg Tablet] 5 mg PO DAILY Pramipexole Di-HCl [Mirapex 0.25 mg Tablet] 0.5 mg PO BID Vortioxetine Hydrobromide [Trintellix] 20 mg PO DAILY 09/17/21 10:00 Phosphorus #1 [K-Phos Neutral 250 mg Tablet] 2 tab PO BID Piperacillin Sodium/Tazobactam [Zosyn 4.5 gm Injection] 4.5 gm Normal Saline [Sodium Chloride 0.9 % 100 ml] 100 ml IVPB Q8H 09/17/21 12:00 Vancomycin HCl [Vancocin 1 Gram Injection] 1.5 gm Normal Saline [Sodium Chloride 0.9 % 250 ml] 250 ml IVPB Q24H 09/17/21 22:00 Atorvastatin Calcium [Lipitor 10 mg Tablets] 20 mg PO QHS Famotidine [Pepcid 20 mg Tablet] 20 mg PO Q48H Trazodone HCl [Desyrel 50 mg Tablet] 50 mg PO BID Electronically Generated By:ADRIANE WAYNE MD Generated Date/Time: 09/17/211709 Electronically Signed By: ADRIANE WAYNE MD Signed Date/Time 09/17/211715 Co Signed Electronically By: Co Signed Date/Time: CC: [facility] Work Phone: [phone]) 287-804807-23-2022 Progress note Author ADRIANE WAYNE [facility] September 17, 2021 5:54pm Note Date/Time September 17, 2021 5:12 pm [facility] [address] [place] [address] HEALTH INFORMATION MANAGEMENT PROGRESS NOTE : [id number] Signed with Mimi Patient: IVON WISEMAN Acct:[id number] MRUN: [id number] : 1955 Sex: F Loc: ICU AD M Date: 09/16/21 Room/Bed: 352-A DISC Date: ADDENDUM CCT 35min Addendum: <Electronically signed by ADRIANE WAYNE MD> Signed Date/Time: 09/17/211753 Co-Signed: Co-signed Date/Time Subjective Assessment Date Of Service: 09/17/21 Events Since Admission: IVON WISEMAN was admitted to [facility] service into room 352 on 09/16/21 at 16:17 for complaints of UTI. The patient's laboratory testing and diagnostic testing has been reviewed. Subjective Note: Overnight, despite being on ceftriaxone, patient was still spiking fevers up to 103 Antibiotics were broadened to Vanco and Zosyn She had A. fib RVR. 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 Attempted to give fluid bolus however this did not improve She also received digoxin once, dosing was used with caution given CHAO Patient was transferred to the ICU, Levophed was started, additional fluid bolusgiven Patient seen, fatigued appearing. Diaphoretic, clammy extremities Reports right-sided back pain. No midline pain No leg swelling No cough or rash General: Confirms: Weakness, Fatigue. Denies: Fever, Chills, Sweats, Weight Gain, Weight Loss, Other ENT: Denies: Earache, Ear Discharge, Decreased Hearing, Tinnitus, Nose Congestion, Nose Drainage, Nasal Ulcers, Epitaxis, Sore Throat, Throat Swelling, Hoarseness, Loss Of Voice, Tongue Pain, Tongue Swelling, Lip Swelling, Dental Pain, Cervical, Other Respiratory: Denies: Cough, Shortness of Breath, Wheezing, Sputum Production, Hemoptysis, Dyspnea on Exertion, Pleuritic Pain, Other Cardiovascular: Denies: Chest Pain-Sharp, Chest Pain-Heavy, Orthopnea, Short of Breath, Dyspnea on Exertion, Paroxysmal Noc. Dyspnea, Edema, Palpitations, LightHeadedness, Syncope, Diaphoresis, Claudication, Edema, Other Gastrointestinal: Denies: Nausea, Vomiting, Abdominal Pain, Diarrhea, Constipation, Melena, Hematochezia, Other Genitourinary: Denies: Dysuria, Frequency, Incontinence, Hematuria, Retention, Other Musculoskeletal: Denies: Neck Pain, Shoulder Pain, Arm Pain, Back Pain, Hand Pain, Leg Pain, Foot Pain, Other Neurological: Confirms: Weakness. Denies: Numbness, Incoordination, Change in Speech, Confusion, Seizures, Other Objective Findings General: Yes: Alert, Oriented, Cooperative/Pleasant, Mild distress, Other (Weak appearing) HEENT: Yes: Atraumatic, PERRLA, Mucous membr. moist/pink, EOMI. No: Vision Impaired, Hearing Impaired Neck: Yes: Supple. No: JVD Lungs: Yes: Clear to auscultation, Normal air movement, Unlabored. No: Exibits Shortness of [place], Pursed Lip Breathing, Use of Accessory Muscles, Retracting Cardiovascular: Yes: Regular rate, Normal S2, Normal S1, No murmurs, Geriatric Assistant Rhythm (Sinus Rhythm). No: Gallops, Rubs, Ectopy Abdomen: Yes: Bowel Sounds X4, Soft, Large/Obese, No Tenderness, Flatus. No: Hepatospenomegaly, Masses, Nausea/Vomiting, Emesis Present, Constipation, Diarrhea Genitourinary/Rectal: Yes: Deferred-Not Relevant Extremities: Yes: Normal pulses, Other (No midline tenderness. No CVA tenderness today). No: Clubbing, Cyanosis, Edema, No tenderness/swelling, Mottling noted Skin: No: Rashes, Skin Breakdown, Significant lesions, Open Wound Present Neurological: Yes: Speech Clear, Normal tone, Sensation intact, Cognitive Ability Intact Psych/Mental Status: Yes: Mental status NL, Mood Appropriate. No: Hallucinations Vitals and I&O: Vital Signs Temperature 97.3 F 09/17/21 16:34 Pulse Rate 74 09/17/21 17:00 Respiratory Rate 26 H 09/17/21 11:30 Blood Pressure 107/64 09/17/21 17:00 O2 Sat by Pulse Oximetry(%) 99 09/17/21 17:00 FiO2 - Manual Entry Intake & Output 09/16/21 09/17/21 09/17/21 23:59 11:59 23:59 Intake Total 1098 3811 1712 Output Total 250 Balance 1098 3561 1712 Weight 245 lb 9.6 oz Intake: IV Intake 1098 3811 1472 Lactated Ringers 1000 ml 1000 1,000 ml @ Wide Open IV . Q0M STA Rx#:[id number] Levophed 4 mg/4 ml 230 222 Injection 8 mg In Sodium Chloride 0.9 % 250 ml 242 ml @ 0.1 MCG/KG/MIN 20. 888 mls/hr IV CONT PRN Rx #:[id number] MAG SULFATE 4 GM PREMIX 4 100 gm In 100 ml @ 50 mls/hr IVPB ONE ONE Rx#: [id number] Rocephin 1 Gram Injection 50 1 gm In Sodium Chloride 0.9 % 50 ml 50 ml @ 100 mls/hr IVPB STAT STA Rx#: [id number] Sodium Chloride 0.9 % 1000 1000 ml 1,000 ml @ 125 mls/hr IV .Q8H PRN Rx#: [id number] Sodium Chloride 0.9 % 1000 1000 1000 ml 1,000 ml @ 500 mls/hr IV .Q2H PRN Rx#: [id number] Sodium Chloride 0.9 % 48 331 0 1000 ml 1,000 ml @ 80 mls /hr IV .[id number] PRN Rx#: [id number] Sodium Chloride 0.9 % 1000 1000 ml 1,000 ml @ 999 mls/hr IV .Q1H1M ONE Rx#: [id number] Vancocin 1 Gram Injection 250 1.5 gm In Sodium Chloride 0.9 % 250 ml 250 ml @ 166.667 mls/hr IVPB Q24H [facility] Rx#:[id number] Zosyn 3.375 gm Injection 50 3.375 gm In Sodium Chloride 0.9 % 50 ml 50 ml @ 100 mls/hr IVPB Q6H [facility] Rx#:[id number] Zosyn 4.5 gm Injection 4. 100 5 gm In Sodium Chloride 0 .9 % 100 ml 100 ml @ 100 mls/hr IVPB Q8H [facility] Rx#: [id number] Intake ml 240 Output: Output ml 200 Reyes 200 Output, Urine Amount 50 Other: Oral Intake Size Oral Scant Output Urine Nonnumeric/ Comment Urine unmeasured x 2 Laboratory-Last 48 hrs: 09/17/21 04:41 09/17/21 04:41 Laboratory Results-last 24 hrs 09/16/21 14:52: MCV 101.8 H, MCH 31.6 H, MCHC 31.0 L, RDW 14.7 H, Neut % (Auto) 87.2 H, Lymph % (Auto) 6.1 L, Eos % (Auto) 0.1 L, Absolute Neuts (auto) 9.18 H, Absolute Lymphs (auto) 0.60 L 09/16/21 14:52: Creatinine 1.37 H, Est GFR (MDRD) Af Amer 46 A, Est GFR (MDRD) Non-Af 38 A, Glucose 140 H, Total Bilirubin 1.23 H, Alkaline Phosphatase 119 H, Albumin 3.0 L, Albumin/Globulin Ratio 0.7 L 09/16/21 15:19: PT 16.6 H 09/16/21 15:20: Urine Color Dark yellow A, Urine Blood 50 A, Urine Nitrite Positive A, Urine Bilirubin 1 A, Ur Leukocyte Esterase 2+ A 09/17/21 04:41: Creatinine 2.06 H, Est GFR (MDRD) Af Amer 29 A, Est GFR (MDRD) Non-Af 24 A, Glucose 187 H, Phosphorus 1.0 L, Magnesium 2.6 H 09/17/21 04:41: WBC 11.1 H, RBC 3.48 L, Hgb 10.9 L, MCH 31.3 H, MCHC 32.2 L, RDW15.0 H, Neut % (Auto) 87.7 H, Lymph % (Auto) 5.3 L, [place] % (Auto) 5.4 L, Eos % (Auto) 0 L, Baso % (Auto) 0.1 L, Abs Immat Gran (man) 0.17 H, Absolute Neuts (auto) 9.69 H, Absolute Lymphs (auto) 0.60 L, Immature Gran % 1.50 H 09/17/21 04:41: PT 16.7 H 09/17/21 04:41: Total Bilirubin 1.81 H, Direct Bilirubin 1.12 H, Alkaline Phosphatase 125 H, Albumin 2.4 L, Albumin/Globulin Ratio 0.6 L 09/17/21 06:15: ABG pH 7.312 L, ABG pO2 40.4 L, ABG HCO3 20.8 L, ABG O2 Saturation 72.0 L*, ABG Base Excess -5.1 L, ABG Hemoglobin 10.3 L, ABG Oxyhemoglobin 71.7 L*, ABG Deoxyhemoglobin 27.9 H* Radiology-Impressions: See radiology reports in electronic medical record. Plan/Treatment Plan: Septic shock pyelonephritis chao, likely vasomotor nephropathy, no prior baseline to compare with afib in rvr, on chronic anticoagulation, subtherapeutic r/o covid anemia, normocytic copd not in acute exacerbation HTN HLD hx of chf per patient report, currently hypovolemic chronic pain on chronic prescribed opioiod depression morbid obesity f/up blood cultures, urine culture. Preliminary showing heavy gram-negative bacilli Vanco Zosyn Continue Levophed Continue fluids, will continue to reassess fluid status hold arb or statin for now given chao. follow crea DC home metoprolol given low blood pressure. metop iv prn for hr >120 keep k close to 4, mg close to 2. give mg Creatinine worse today,+hypotension follow hg. no signs of overt blood loss home warfarin. inr daily telemetry home statin home norco, pramipexole, trazodone dvt ppx: home warfarin gi ppx: pepcid, renally dose New Orders: New Orders-Lab 09/18/21 04:00 Basic Metabolic Panel [CHM] DAILY@0400 CBC w/Auto Differential [HEM] DAILY@0400 INR [PT] [COA] DAILY@0400 09/19/21 04:00 Basic Metabolic Panel [CHM] DAILY@0400 CBC w/Auto Differential [HEM] DAILY@0400 INR [PT] [COA] DAILY@0400 New Orders-Nursing Care 09/19/21 07:33 Reassessment-Indwelling Urinary Catheter [RC] ONE Medications 09/17/21 09:00 Oxybutynin Chloride [Ditropan Xl 5 mg Tablet] 5 mg PO DAILY Pramipexole Di-HCl [Mirapex 0.25 mg Tablet] 0.5 mg PO BID Vortioxetine Hydrobromide [Trintellix] 20 mg PO DAILY 09/17/21 10:00 Phosphorus #1 [K-Phos Neutral 250 mg Tablet] 2 tab PO BID Piperacillin Sodium/Tazobactam [Zosyn 4.5 gm Injection] 4.5 gm Normal Saline [Sodium Chloride 0.9 % 100 ml] 100 ml IVPB Q8H 09/17/21 12:00 Vancomycin HCl [Vancocin 1 Gram Injection] 1.5 gm Normal Saline [Sodium Chloride 0.9 % 250 ml] 250 ml IVPB Q24H 09/17/21 22:00 Atorvastatin Calcium [Lipitor 10 mg Tablets] 20 mg PO QHS Famotidine [Pepcid 20 mg Tablet] 20 mg PO Q48H Trazodone HCl [Desyrel 50 mg Tablet] 50 mg PO BID Electronically Generated By:ADRIANE WAYNE MD Generated Date/Time: 09/17/211709 Electronically Signed By: ADRIANE WAYNE MD Signed Date/Time 09/17/211715 Co Signed Electronically By: Co Signed Date/Time: CC: [facility] Work Phone: [phone] 197-317607-22-2022 History and physical note Author ADRIANE WAYNE [facility] September 16, 2021 9:27pm Note Date/Time September 16, 2021 7:10 pm [facility] [address] [place] [id number] HEALTH INFORMATION MANAGEMENT HISTORY AND PHYSICAL : Signed Patient: IVON WISEMAN Acct:[id number] MRUN: [id number] : 1955 Sex: F Loc: 4TH FLOOR ADM Date: 09/16/21 Room/Bed: 434-A DISC Date: History of Present Illness Date Of Admission: 09/16/21 Chief Complaint: chills Onset of Chief Complaint: 09/15/21 History of Present Illness: Visit History IVON WISEMAN is a 65 year old F patient of [facility]. Patient was admitted from Emergency Dept to room 434, bed A on 09/16/21 16:17. Pt was evaluated for complaints of , then admitted to [facility] for UTI. IVON was admitted as a ADM to [facility] for further evaluation and treatment. Pt was seen and evaluated on 09/16/211909, by this provider, ADRIANE WAYNE MD. Patient is a 65f who presented to [facility] ED on 09/16/21 for chills that started yesterday. she also had R sided back pain, nausea. she denied dysuria, suprapubic pain. she felt lightheaded, felt like she was about to pass out. of note patient had chronic back pain, typically midline, and get steroids injections, but they have been otherwise controlled until it started suddenly. In the ED, patient with bp 120/65, hr 124, rr 18, o2 sat 96%, temp 103.1. wbc 10.5. crea 1.37. ua showed nitrite positive, leuks 2+, wbc 50-100, bacteria 3+, blood 50. patient given fluids and abx. patient admitted for pyelonephritis. Allergies/Adverse Reactions: flecainide Allergy (Verified 09/16/21 14:32) Home Medications: Patient History Albuterol Sulfate [Proair Hfa] 2 puff IN Q4H PRN 09/16/21 [History Confirmed 09/16/21] Atorvastatin Calcium [Lipitor 20 mg Tablet] 20 mg PO QHS 09/16/21 [History Confirmed 09/16/21] Calcium Carbonate [Calcium] 2 tab PO DAILY 09/16/21 [History Confirmed 09/16/21] Celecoxib [Celebrex 200 mg Capsule] 1 cap PO DAILY 09/16/21 [History Confirmed 09/16/21] Hydrocodone Bit/Acetaminophen [Palo 5/325 mg Tablet] 1 tab PO BID 09/16/21 [History Confirmed 09/16/21] Metoprolol Succinate [Toprol Xl 25 mg Tablet] 25 mg PO BID 09/16/21 [History Confirmed 09/16/21] Olmesartan Medoxomil [Benicar] 1 tab PO DAILY 09/16/21 [History Confirmed 09/16/21] Pramipexole Di-HCl [Mirapex] 0.5 mg PO BID 09/16/21 [History Confirmed 09/16/21] Solifenacin Succinate [Vesicare] 5 mg PO DAILY 09/16/21 [History Confirmed 09/16/21] Trazodone HCl [Desyrel 50 mg Tablet] 50 mg PO BID 09/16/21 [History Confirmed 09/16/21] Vit A/Vit C/Vit E/Zinc/Copper [Preservision Areds Tablet] 1 tab PO DAILY 09/16/21 [History Confirmed 09/16/21] Vortioxetine Hydrobromide [Trintellix] 20 mg PO DAILY 09/16/21 [History Confirmed 09/16/21] Warfarin Sodium [Coumadin 6 mg Tablet] 6 mg PO QHS 09/16/21 [History Confirmed 09/16/21] Past Social History Marital Status: Lives with: Family Occupation: retired Highest Educational Level: High School Able to Read: Yes Able to Write: Yes Alcohol Use: Never - [place]/Gender ID What is your current Gender Identity? Choose all that Apply: Female Define your Sexual Orientation?: Straight/Heterosexual - [place]-Suicide Severity Rating Scale 1) Wish to be :: No 2) Suicidal Thoughts:: No 3) Suicidal Thoughts with Method (without specific plan or intent to act):: No 4) Suicidal Intent (WITHOUT Specific Plan):: No 5) Suicidal Intent (WITH Specific Plan):: No 6) Suicidal Behavior Question (A): LIFETIME: No 6) Suicidal Behavior Question (B): PAST 3 MONTHS: No Patient Safety Strategies Initiated?: No Past Medical History Hx Ear/Nose/Throat Disorders: No Hx Neurological Disorder: No Hx Psychosocial Problems: No Hx Cardiac Disorders: Yes PMH--Cardiovascular: Confirms: Atrial Fib, CHF, HTN, Hypercholesterolemia Hx Respiratory Disorders: Yes PMH--Respiratory: Confirms: COPD Hx Endocrine Disorders: No Hx Musculoskeletal Disorders: Yes PMH--Musculoskeletal: Confirms: Arthritis, Degen. Disk Disease, Fibromyalgia ?: No Hx Reproductive Disorders: No Hx Genitourinary Disorders: No Hx Gastrointestinal Disorders: No Hx Cancer: No Family Medical History - Family Medical History No Significant Family History Other Family History: Review of Systems General: Confirms: Fever, Chills. Denies: Sweats, Weakness, Fatigue, Weight Gain, Weight Loss, Other Head/Eye: Denies: Headache, Head Injury/Trama, Hear Loss, Pain, Itching, Redness, Matting, Blurry Vision, Double Vision, Scotoma (Spots), Amauriosis, Excessive Tearing, Other ENT: Denies: Earache, Ear Discharge, Decreased Hearing, Tinnitus, Nose Congestion, Nose Drainage, Nasal Ulcers, Epitaxis, Sore Throat, Throat Swelling,Hoarseness, Loss Of Voice, Tongue Pain, Tongue Swelling, Lip Swelling, Dental Pain, Cervical, Other Respiratory: Denies: Cough, Shortness of Breath, Wheezing, Sputum Production, Hemoptysis, Dyspnea on Exertion, Pleuritic Pain, Other Cardiovascular: Denies: Chest Pain-Sharp, Chest Pain-Heavy, Orthopnea, Short of Breath, Dyspnea on Exertion, Paroxysmal Noc. Dyspnea, Edema, Palpitations, LightHeadedness, 7, Syncope, Diaphoresis, Claudication, Edema, Other Gastrointestinal: Confirms: Nausea. Denies: Vomiting, Abdominal Pain, Diarrhea,Constipation, Melena, Hematochezia, Hematemesis, Rectal Pain, Other Genitourinary: Denies: Dysuria, Frequency, Incontinence, Hematuria, Retention, Urgency, Other Musculoskeletal: Confirms: Back Pain (R sided). Denies: Neck Pain, Shoulder Pain, Arm Pain, Hand Pain, Leg Pain, Foot Pain, Other Skin: Denies: Rash, Lesions, Jaundice, Bruising, Other Neurological: Denies: Weakness, Numbness, Incoordination, Change in Speech, Confusion, Seizures, Other Physical Exam Vital Signs: Vital Signs (72 hours) 09/16/21 09/16/21 09/16/21 14:12 15:28 16:26 Temperature 103.1 F H 99.5 F Pulse Rate Pulse Rate [ 113 H 124 H 116 H Pulse Ox] Respiratory 18 18 Rate Blood Pressure Blood Pressure 143/68 120/65 122/63 [Left Arm Sitting] O2 Sat by Pulse 97 96 97 Oximetry(%) 09/16/21 09/16/21 09/16/21 17:08 18:09 18:11 Temperature 98.2 F 98.2 F Pulse Rate 104 H Pulse Rate [ 104 H 104 H Pulse Ox] Respiratory 16 16 Rate Blood Pressure 120/54 Blood Pressure 120/54 [Left Arm Sitting] O2 Sat by Pulse 95 95 95 Oximetry(%) General: Yes: Alert, Oriented (X3), Cooperative/Pleasant, No acute distress HEENT: Yes: Atraumatic, PERRLA, EOMI, Mucous membr. moist/pink Lungs: Yes: Clear to auscultation, Normal air movement, Unlabored. No: Shortness Of Breath Scale Cardiovascular: Yes: Regular rate, Normal S2, Normal S1. No: No murmurs, Gallops, Rubs Abdomen: Yes: Bowel Sounds X4, Soft, Large/Obese, Tenderness Noted (R cva tenderness), Flatus (Present), Bowel Pattern. No: Hepatospenomegaly, Masses, Nausea/Vomiting, Emesis Present, Constipation, Diarrhea Extremities: Yes: Normal pulses. No: Clubbing, Cyanosis, Edema, No tenderness/swelling, Mottling noted Skin: No: Rashes, Skin Breakdown, Significant lesions, Open Wound Present, Skin Tear Neurological: Yes: Speech Clear, Normal tone, Sensation intact, Cognitive Ability Intact Psych/Mental Status: Yes: Mental status NL, Mood Appropriate. No: Depressed/Withdrawn, Hallucinations Genitourinary/Rectal: Yes: Deferred-Not Relevant Breast Exam: Yes: Deferred-Not Relevant Plan/Treatment Plan: sepsis pyelonephritis elevated crea, consider chao, likely vasomotor nephropathy, no prior baseline to compare with afib in rvr, on chronic anticoagulation, subtherapeutic r/o covid copd not in acute exacerbation HTN HLD hx of chf per patient report, currently hypovolemic chronic pain on chronic prescribed opioiod depression morbid obesity f/up blood cultures, urine culture lactate normal ceftriaxone fluids give 2nd bolus, then run saline maintenance. ?hx of hf, however no water pill on home med. will attempt to get cardiac records hold arb or statin for now given possible chao. follow crea home metoprolol. metop iv prn for hr >120 keep k close to 4, mg close to 2. give mg home warfarin. inr daily telemetry home statin home norco, pramipexole, trazodone dvt ppx: home warfarin gi ppx: pepcid, renally dose New Orders: New Orders-Lab 09/16/21 17:30 Culture Blood [MIC2] Stat Culture Blood [MIC2] Stat 09/16/21 17:40 Lactic Acid (Venous) [CHM] Urgent 09/17/21 04:00 Basic Metabolic Panel [CHM] DAILY@0400 CBC w/Auto Differential [HEM] DAILY@0400 Magnesium [CHM] Routine Phosphorus [CHM] Routine 09/18/21 04:00 Basic Metabolic Panel [CHM] DAILY@0400 CBC w/Auto Differential [HEM] DAILY@0400 09/19/21 04:00 Basic Metabolic Panel [CHM] DAILY@0400 CBC w/Auto Differential [HEM] DAILY@0400 Medications 09/16/21 18:32 Magnesium Sulfate [Mag Sulfate 4 gm Premix] 4 gm in 100 ml IVPB ONE 09/16/21 18:33 Acetaminophen [Tylenol 325 mg Tablet] 650 mg PO Q6H PRN Ondansetron HCl/Pf [Zofran 4 mg/2 ml Injection] 4 mg IVP Q4H PRN Electronically Generated By:ADRIANE WAYNE MD Generated Date/Time: 09/16/211909 Electronically Signed By: ADRIANE WAYNE MD Signed Date/Time 09/16/212126 Co Signed Electronically By: Co Signed Date/Time: CC: [facility] Work Phone: [phone]) 432-660307-22-2022 History and physical note Author ADRIANE WAYNE [facility] September 16, 2021 9:27pm Note Date/Time September 16, 2021 7:10 pm [facility] [address] [place] [address] HEALTH INFORMATION MANAGEMENT HISTORY AND PHYSICAL : Signed Patient: IVON WISEMAN Acct:[id number] MRUN: [id number] : 1955 Sex: F Loc: 4TH FLOOR ADM Date: 09/16/21 Room/Bed: 434-A DISC Date: History of Present Illness Date Of Admission: 09/16/21 Chief Complaint: chills Onset of Chief Complaint: 09/15/21 History of Present Illness: Visit History IVON WISEMAN is a 65 year old F patient of [facility]. Patient was admitted from Emergency Dept to room 434, bed A on 09/16/21 16:17. Pt was evaluated for complaints of , then admitted to [facility] for UTI. IVON was admitted as a ADM to [facility] for further evaluation and treatment. Pt was seen and evaluated on 09/16/211909, by this provider, ADRIANE WAYNE MD. Patient is a 65f who presented to [facility] ED on 09/16/21 for chills that started yesterday. she also had R sided back pain, nausea. she denied dysuria, suprapubic pain. she felt lightheaded, felt like she was about to pass out. of note patient had chronic back pain, typically midline, and get steroids injections, but they have been otherwise controlled until it started suddenly. In the ED, patient with bp 120/65, hr 124, rr 18, o2 sat 96%, temp 103.1. wbc 10.5. crea 1.37. ua showed nitrite positive, leuks 2+, wbc 50-100, bacteria 3+, blood 50. patient given fluids and abx. patient admitted for pyelonephritis. Allergies/Adverse Reactions: flecainide Allergy (Verified 09/16/21 14:32) Home Medications: Patient History Albuterol Sulfate [Proair Hfa] 2 puff IN Q4H PRN 09/16/21 [History Confirmed 09/16/21] Atorvastatin Calcium [Lipitor 20 mg Tablet] 20 mg PO QHS 09/16/21 [History Confirmed 09/16/21] Calcium Carbonate [Calcium] 2 tab PO DAILY 09/16/21 [History Confirmed 09/16/21] Celecoxib [Celebrex 200 mg Capsule] 1 cap PO DAILY 09/16/21 [History Confirmed 09/16/21] Hydrocodone Bit/Acetaminophen [Palo 5/325 mg Tablet] 1 tab PO BID 09/16/21 [History Confirmed 09/16/21] Metoprolol Succinate [Toprol Xl 25 mg Tablet] 25 mg PO BID 09/16/21 [History Confirmed 09/16/21] Olmesartan Medoxomil [Benicar] 1 tab PO DAILY 09/16/21 [History Confirmed 09/16/21] Pramipexole Di-HCl [Mirapex] 0.5 mg PO BID 09/16/21 [History Confirmed 09/16/21] Solifenacin Succinate [Vesicare] 5 mg PO DAILY 09/16/21 [History Confirmed 09/16/21] Trazodone HCl [Desyrel 50 mg Tablet] 50 mg PO BID 09/16/21 [History Confirmed 09/16/21] Vit A/Vit C/Vit E/Zinc/Copper [Preservision Areds Tablet] 1 tab PO DAILY 09/16/21 [History Confirmed 09/16/21] Vortioxetine Hydrobromide [Trintellix] 20 mg PO DAILY 09/16/21 [History Confirmed 09/16/21] Warfarin Sodium [Coumadin 6 mg Tablet] 6 mg PO QHS 09/16/21 [History Confirmed 09/16/21] Past Social History Marital Status: Lives with: Family Occupation: retired Highest Educational Level: High School Able to Read: Yes Able to Write: Yes Alcohol Use: Never - [place]/Gender ID What is your current Gender Identity? Choose all that Apply: Female Define your Sexual Orientation?: Straight/Heterosexual - [place]-Suicide Severity Rating Scale 1) Wish to be :: No 2) Suicidal Thoughts:: No 3) Suicidal Thoughts with Method (without specific plan or intent to act):: No 4) Suicidal Intent (WITHOUT Specific Plan):: No 5) Suicidal Intent (WITH Specific Plan):: No 6) Suicidal Behavior Question (A): LIFETIME: No 6) Suicidal Behavior Question (B): PAST 3 MONTHS: No Patient Safety Strategies Initiated?: No Past Medical History Hx Ear/Nose/Throat Disorders: No Hx Neurological Disorder: No Hx Psychosocial Problems: No Hx Cardiac Disorders: Yes PMH--Cardiovascular: Confirms: Atrial Fib, CHF, HTN, Hypercholesterolemia Hx Respiratory Disorders: Yes PMH--Respiratory: Confirms: COPD Hx Endocrine Disorders: No Hx Musculoskeletal Disorders: Yes PMH--Musculoskeletal: Confirms: Arthritis, Degen. Disk Disease, Fibromyalgia ?: No Hx Reproductive Disorders: No Hx Genitourinary Disorders: No Hx Gastrointestinal Disorders: No Hx Cancer: No Family Medical History - Family Medical History No Significant Family History Other Family History: Review of Systems General: Confirms: Fever, Chills. Denies: Sweats, Weakness, Fatigue, Weight Gain, Weight Loss, Other Head/Eye: Denies: Headache, Head Injury/Trama, Hear Loss, Pain, Itching, Redness, Matting, Blurry Vision, Double Vision, Scotoma (Spots), Amauriosis, Excessive Tearing, Other ENT: Denies: Earache, Ear Discharge, Decreased Hearing, Tinnitus, Nose Congestion, Nose Drainage, Nasal Ulcers, Epitaxis, Sore Throat, Throat Swelling,Hoarseness, Loss Of Voice, Tongue Pain, Tongue Swelling, Lip Swelling, Dental Pain, Cervical, Other Respiratory: Denies: Cough, Shortness of Breath, Wheezing, Sputum Production, Hemoptysis, Dyspnea on Exertion, Pleuritic Pain, Other Cardiovascular: Denies: Chest Pain-Sharp, Chest Pain-Heavy, Orthopnea, Short of Breath, Dyspnea on Exertion, Paroxysmal Noc. Dyspnea, Edema, Palpitations, LightHeadedness, 7, Syncope, Diaphoresis, Claudication, Edema, Other Gastrointestinal: Confirms: Nausea. Denies: Vomiting, Abdominal Pain, Diarrhea,Constipation, Melena, Hematochezia, Hematemesis, Rectal Pain, Other Genitourinary: Denies: Dysuria, Frequency, Incontinence, Hematuria, Retention, Urgency, Other Musculoskeletal: Confirms: Back Pain (R sided). Denies: Neck Pain, Shoulder Pain, Arm Pain, Hand Pain, Leg Pain, Foot Pain, Other Skin: Denies: Rash, Lesions, Jaundice, Bruising, Other Neurological: Denies: Weakness, Numbness, Incoordination, Change in Speech, Confusion, Seizures, Other Physical Exam Vital Signs: Vital Signs (72 hours) 09/16/21 09/16/21 09/16/21 14:12 15:28 16:26 Temperature 103.1 F H 99.5 F Pulse Rate Pulse Rate [ 113 H 124 H 116 H Pulse Ox] Respiratory 18 18 Rate Blood Pressure Blood Pressure 143/68 120/65 122/63 [Left Arm Sitting] O2 Sat by Pulse 97 96 97 Oximetry(%) 09/16/21 09/16/21 09/16/21 17:08 18:09 18:11 Temperature 98.2 F 98.2 F Pulse Rate 104 H Pulse Rate [ 104 H 104 H Pulse Ox] Respiratory 16 16 Rate Blood Pressure 120/54 Blood Pressure 120/54 [Left Arm Sitting] O2 Sat by Pulse 95 95 95 Oximetry(%) General: Yes: Alert, Oriented (X3), Cooperative/Pleasant, No acute distress HEENT: Yes: Atraumatic, PERRLA, EOMI, Mucous membr. moist/pink Lungs: Yes: Clear to auscultation, Normal air movement, Unlabored. No: Shortness Of Breath Scale Cardiovascular: Yes: Regular rate, Normal S2, Normal S1. No: No murmurs, Gallops, Rubs Abdomen: Yes: Bowel Sounds X4, Soft, Large/Obese, Tenderness Noted (R cva tenderness), Flatus (Present), Bowel Pattern. No: Hepatospenomegaly, Masses, Nausea/Vomiting, Emesis Present, Constipation, Diarrhea Extremities: Yes: Normal pulses. No: Clubbing, Cyanosis, Edema, No tenderness/swelling, Mottling noted Skin: No: Rashes, Skin Breakdown, Significant lesions, Open Wound Present, Skin Tear Neurological: Yes: Speech Clear, Normal tone, Sensation intact, Cognitive Ability Intact Psych/Mental Status: Yes: Mental status NL, Mood Appropriate. No: Depressed/Withdrawn, Hallucinations Genitourinary/Rectal: Yes: Deferred-Not Relevant Breast Exam: Yes: Deferred-Not Relevant Plan/Treatment Plan: sepsis pyelonephritis elevated crea, consider chao, likely vasomotor nephropathy, no prior baseline to compare with afib in rvr, on chronic anticoagulation, subtherapeutic r/o covid copd not in acute exacerbation HTN HLD hx of chf per patient report, currently hypovolemic chronic pain on chronic prescribed opioiod depression morbid obesity f/up blood cultures, urine culture lactate normal ceftriaxone fluids give 2nd bolus, then run saline maintenance. ?hx of hf, however no water pill on home med. will attempt to get cardiac records hold arb or statin for now given possible chao. follow crea home metoprolol. metop iv prn for hr >120 keep k close to 4, mg close to 2. give mg home warfarin. inr daily telemetry home statin home norco, pramipexole, trazodone dvt ppx: home warfarin gi ppx: pepcid, renally dose New Orders: New Orders-Lab 09/16/21 17:30 Culture Blood [MIC2] Stat Culture Blood [MIC2] Stat 09/16/21 17:40 Lactic Acid (Venous) [CHM] Urgent 09/17/21 04:00 Basic Metabolic Panel [CHM] DAILY@0400 CBC w/Auto Differential [HEM] DAILY@0400 Magnesium [CHM] Routine Phosphorus [CHM] Routine 09/18/21 04:00 Basic Metabolic Panel [CHM] DAILY@0400 CBC w/Auto Differential [HEM] DAILY@0400 09/19/21 04:00 Basic Metabolic Panel [CHM] DAILY@0400 CBC w/Auto Differential [HEM] DAILY@0400 Medications 09/16/21 18:32 Magnesium Sulfate [Mag Sulfate 4 gm Premix] 4 gm in 100 ml IVPB ONE 09/16/21 18:33 Acetaminophen [Tylenol 325 mg Tablet] 650 mg PO Q6H PRN Ondansetron HCl/Pf [Zofran 4 mg/2 ml Injection] 4 mg IVP Q4H PRN Electronically Generated By:ADRIANE WAYNE MD Generated Date/Time: 09/16/211909 Electronically Signed By: ADRIANE WAYNE MD Signed Date/Time 09/16/212126 Co Signed Electronically By: Co Signed Date/Time: CC: [facility] Work Phone: 1(830) 663-386507-22-2022 [place] [address] HEALTH INFORMATION MANAGEMENT HISTORY AND PHYSICAL : Signed Patient: IVON WISEMAN Acct:[id number] MRUN : [id number] : 1955 Sex: F Loc: 4TH FLOOR ADM Date: 09/16/21 Room/Bed: 434-A DISC Date: History of Present Illness Date Of Admission: 09/16/21 Chief Complaint: chills Onset of Chief Complaint: 09/15/21 History of Present Illness: Visit History IVON WISEMAN is a 65 year old F patient of [facility]. Patient was admitted from Emergency Dept to room 434, bed A on 09/16/21 16:17. Pt was evaluated for complaints of , then admitted to [facility] for UTI. IVON was admitted as a ADM to [facility] for further evaluation and treatment. Pt was seen and evaluated on 09/16/211909, by this provider, ADRIANE WAYNE MD. Patient is a 65f who presented to [facility] ED on 09/16/21 for chills that started yesterday. she also had R sided back pain, nausea. she denied dysuria, suprapubic pain. she felt lightheaded, felt like she was about to pass out. of note patient had chronic back pain, typically midline, and get steroids injections, but they have been otherwise controlled until it started suddenly. In the ED, patient with bp 120/65, hr 124, rr 18, o2 sat 96%, temp 103.1. wbc 10.5. crea 1.37. ua showed nitrite positive, leuks 2+, wbc 50-100, bacteria 3+, blood 50. patient given fluids and abx. patient admitted for pyelonephritis. Allergies/Adverse Reactions: flecainide Allergy (Verified 09/16/21 14:32) Home Medications: Patient History Albuterol Sulfate [Proair Hfa] 2 puff IN Q4H PRN 09/16/21 [History Confirmed 09/16/21] Atorvastatin Calcium [Lipitor 20 mg Tablet] 20 mg PO QHS 09/16/21 [History Confirmed 09/16/21] Calcium Carbonate [Calcium] 2 tab PO DAILY 09/16/21 [History Confirmed 09/16/21] Celecoxib [Celebrex 200 mg Capsule] 1 cap PO DAILY 09/16/21 [History Confirmed 09/16/21] Hydrocodone Bit/Acetaminophen [Palo 5/325 mg Tablet] 1 tab PO BID 09/16/21 [History Confirmed 09/16/21] Metoprolol Succinate [Toprol Xl 25 mg Tablet] 25 mg PO BID 09/16/21 [History Confirmed 09/16/21] Olmesartan Medoxomil [Benicar] 1 tab PO DAILY 09/16/21 [History Confirmed 09/16/21] Pramipexole Di-HCl [Mirapex] 0.5 mg PO BID 09/16/21 [History Confirmed 09/16/21] Solifenacin Succinate [Vesicare] 5 mg PO DAILY 09/16/21 [History Confirmed 09/16/21] Trazodone HCl [Desyrel 50 mg Tablet] 50 mg PO BID 09/16/21 [History Confirmed 09/16/21] Vit A/Vit C/Vit E/Zinc/Copper [Preservision Areds Tablet] 1 tab PO DAILY 09/16/21 [History Confirmed 09/16/21] Vortioxetine Hydrobromide [Trintellix] 20 mg PO DAILY 09/16/21 [History Confirmed 09/16/21] Warfarin Sodium [Coumadin 6 mg Tablet] 6 mg PO QHS 09/16/21 [History Confirmed 07/22/22] Past Social History Marital Status: Lives with: Family Occupation: retired Highest Educational Level: High School Able to Read: Yes Able to Write: Yes Alcohol Use: Never - [place]/Gender ID What is your current Gender Identity? Choose all that Apply: Female Define your Sexual Orientation?: Straight/Heterosexual - [place]-Suicide Severity Rating Scale 1) Wish to be :: No 2) Suicidal Thoughts:: No 3) Suicidal Thoughts with Method (without specific plan or intent to act):: No 4) Suicidal Intent (WITHOUT Specific Plan):: No 5) Suicidal Intent (WITH Specific Plan):: No 6) Suicidal Behavior Question (A): LIFETIME: No 6) Suicidal Behavior Question (B): PAST 3 MONTHS: No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 Provider Active Team Status: Inactive Member Role Status Dates Dr. Ruddy Corral MD Primary Care Provider Active Dr. Montserrat Welsh MD Attending Provider, Referring Pr ovider Active Team Status: Active Member Role Status Dates Dr. Ruddy Corral MD Primary Care Provider, Attending Provider Active Api Architect Relationship Specialty Start Date End Date Lele Sumner [address] [place] [address] Ophthalmology 05/01/22 Api Architect Relationship Specialty Start Date End Date Lele Sumner [address] [place] [address] Ophthalmology 05/01/22 Api Architect Relationship Specialty Start Date End Date Lele Sumner [address] [place] [address] Ophthalmology 05/01/22 Api Architect Relationship Specialty Start Date End Date Lele Sumner [address] [place] [address] Ophthalmology 05/01/22 Api Architect Relationship Specialty Start Date End Date Lele Sumner [address] [place] [address] Ophthalmology 05/01/22 Api Architect Relationship Specialty Start Date End Date Lele Sumner [address] [place] [address] Ophthalmology 05/01/22 Team Status: Inactive Member Role Status Dates Dr. Ruddy Corral MD Primary Care Provider, Referring Provider Active Karrie Elam FOREIGN TRADE TEACHER, FOREIGN TRADE TEACHER-C Attending Provider Active Api Architect Relationship Specialty Start Date End Date Lele Sumner [address] [place] [address] Ophthalmology 05/01/22 Team Status: Inactive Member Role Status Dates Dr. Ruddy Corral MD Primary Care Provi kimberly, Attending Provider, Referring Provider Active Api Architect Relationship Specialty Start Date End Date Lele Sumner [address] [place] [address] Ophthalmology 05/01/22 Api Architect Relationship Specialty Start Date End Date Ruddy Corral Chi [address] [place], [place] [id number] PCP - General Gerontology 03/13/23 Lele Sumner [address] [facility], [place] [address] Ophthalmology 05/01/22 Api Architect Relationship Specialty Start Date End Date Ruddy Corral Chi [address] [place], [place] [id number] PCP - General Gerontology 03/13/23 Lele Sumner [address] [facility], [place] [address] Ophthalmology 05/01/22 Api Architect Relationship Specialty Start Date End Date Ruddy Corral Chi [address] [place], [place] [id number] PCP - General Gerontology 03/13/23 Lele Sumner [address] [facility], [place] [id number] Ophthalmology 05/01/22 Team Status: Inactive Member Role Status Dates Dr. Ruddy Corral MD Primary Care Provider Active Dr. Sawyer Curtis DO Emergency Provider Active Team Status: Inactive Member Role Status Dates Dr. Ruddy Corral MD Primary Care Provider Active Start: March 28, 2024 End: March 28, 2024 Dr. Ruddy Corral MD Attending Provider Active Start: March 28, 2024 End: March 28, 2024 Team Status: Inactive Member Role Status Dates Dr. Ruddy Corral MD Primary Care Provider Active Start: April 10, 2024 End: April 10, 2024 Dr. Ruddy Corral MD Attending Provider Active Start: April 10, 2024 End: April 10, 2024 Dr. Ruddy Corral MD Referring Provider Active Start: April 10, 2024 End: April 10, 2024 Team Status: Inactive Member Role Status Dates Dr. Ruddy Corral MD Primary Care Provider Active Start: April 21, 2024 End: April 21, 2024 Dr. Ruddy Corral MD Attending Provider Active Start: April 21, 2024 End: April 21, 2024 Team Status: Active Member Role Status Dates Dr. Ruddy Corral MD Primary Care Provider Active Start: May 21, 2024 Dr. Ruddy Corral MD Attending Provider Active Start: May 21, 2024 Dr. Ruddy Corral MD Referring Provider Active Start: May 21, 2024 Team Status: Inactive Member Role Status Dates Dr. Ruddy Corral MD Primary Care Provider Active Start: May 21, 2024 End: May 21, 2024 Dr. Ruddy Corral MD Attending Provider Active Start: May 21, 2024 End: May 21, 2024 Dr. Ruddy Corral MD Referring Provider Active Start: May 21, 2024 End: May 21, 2024 Team Status: Active Member Role Status Dates Dr. Ruddy Corral MD Primary Care Provider Active Team Status: Inactive Member Role Status Dates Dr. Ruddy Corral MD Primary Care Provider Active Start: June 04, 2024 End: June 04, 2024 Dr. Warren Dior DO Emergency Provider Active Start : June 04, 2024 End: June 04, 2024 Team Status: Inactive Member Role Status Dates Dr. Ruddy Corral MD Primary Care Provider Active Start: June 04, 2024 End: June 04, 2024 Dr. Warren Dior DO Attending Provider Active Start : June 04, 2024 End: June 04, 2024 Dr. Warren Dior DO Emergency Provider Active Start : June 04, 2024 End: June 04, 2024 Team Status: Inactive Member Role Status Dates Dr. Ruddy Corral MD Primary Care Provider Active Start: June 09, 2024 End: June 09, 2024 Dr. Ruddy Corral MD Attending Provider Active Start: June 09, 2024 End: June 09, 2024 Dr. Ruddy Corral MD Referring Provider Active Start: June 09, 2024 End: June 09, 2024 Team Status: Inactive Member Role Status Dates Dr. Ruddy Corral MD Primary Care Provider Active Start: July 01, 2024 End: July 01, 2024 Dr. Montserrat Welsh MD Attending Provider Active Start: July 01, 2024 End: July 01, 2024 Dr. Montserrat Welsh MD Referring Provider Active Start: July 01, 2024 End: July 01, 2024 Team Status: Active Member Role/Relationship Status Dates Dr. Ruddy Corral MD Primary Care Provider Active Team Status: Inactive Member Role/Relationship Status Dates Dr. Ruddy Corral MD Primary Care Provider Active Start: May 21, 2024 End: May 21, 2024 Dr. Ruddy Corral MD Attending Provider Active Start: May 21, 2024 End: May 21, 2024 Dr. Ruddy Corral MD Referring Provider Active Start: May 21, 2024 End: May 21, 2024 Team Status: Inactive Member Role/Relationship Status Dates Dr. Ruddy Corral MD Primary Care Provider Active Start: May 21, 2024 End: May 21, 2024 Dr. Ruddy Corral MD Attending Provider Active Start: May 21, 2024 End: May 21, 2024 Dr. Ruddy Corral MD Referring Provider Active Start: May 21, 2024 End: May 21, 2024 Team Status: Inactive Member Role/Relationship Status Dates Dr. Ruddy Corral MD Primary Care Provider Active Start: June 04, 2024 End: June 04, 2024 Dr. Warren Dior DO Attending Provider Active Start : June 04, 2024 End: June 04, 2024 Dr. Warren Dior DO Emergency Provider Active Start : June 04, 2024 End: June 04, 2024 Team Status: Inactive Member Role/Relationship Status Dates Dr. Ruddy Corral MD Primary Care Provider Active Start: June 09, 2024 End: June 09, 2024 Dr. Ruddy Corral MD Attending Provider Active Start: June 09, 2024 End: June 09, 2024 Dr. Ruddy Corral MD Referring Provider Active Start: June 09, 2024 End: June 09, 2024 Team Status: Inactive Member Role/Relationship Status Dates Dr. Ruddy Corral MD Primary Care Provider Active Start: July 01, 2024 End: July 01, 2024 Dr. Montserrat Welsh MD Attending Provider Active Start: July 01, 2024 End: July 01, 2024 Dr. Montserrat Welsh MD Referring Provider Active Start: July 01, 2024 End: July 01, 2024 Team Status: Active Member Role/Relationship Status Dates Dr. Ruddy Corral MD Primary Care Provider Active Start: August 11, 2024 Dr. Montserrat Welsh MD Attending Provider Active Start: August 11, 2024 Dr. Montserrat Welsh MD Referring Provider Active Start: August 11, 2024 Team Status: Inactive Member Role/Relationship Status Dates Dr. Ruddy Corral MD Primary Care Provider Active Start: August 20, 2024 End: August 20, 2024 Dr. Ruddy Corral MD Attending Provider Active Start: August 20, 2024 End: August 20, 2024 Dr. Ruddy Corral MD Referring Provider Active Start: August 20, 2024 End: August 20, 2024 Team Status: Inactive Member Role/Relationship Status Dates Dr. Ruddy Corral MD Primary Care Provider Active Start: July 01, 2024 End: July 01, 2024 Dr. Montserrat Welsh MD Attending Provider Active Start: July 01, 2024 End: July 01, 2024 Dr. Montserrat Welsh MD Referring Provider Active Start: July 01, 2024 End: July 01, 2024 Team Status: Inactive Member Role/Relationship Status Dates Dr. Ruddy Corral MD Primary Care Provider Active Start: August 20, 2024 End: August 20, 2024 Dr. Ruddy Corral MD Attending Provider Active Start: August 20, 2024 End: August 20, 2024 Dr. Ruddy Corral MD Referring Provider Active Start: August 20, 2024 End: August 20, 2024 Team Status: Active Member Role/Relationship Status Dates Dr. Agustin Tineo MD Attending Provider Active Start: August 20, 2024 Dr. Ruddy Corral MD Referring Provider Active Start: August 20, 2024 Team Status: Active Member Role/Relationship Status Dates Dr. Ruddy Corral MD Primary Care Provider Active Start: September 22, 2024 Dr. Montserrat Welsh MD Attending Provider Active Start: September 22, 2024 Dr. Montserrat Welsh MD Referring Provider Active Start: September 22, 2024 Team Status: Inactive Member Role/Relationship Status Dates Dr. Ruddy Corral MD Primary Care Provider Active Start: October 20, 2024 End: October 20, 2024 Dr. Ruddy Corral MD Attending Provider Active Start: October 20, 2024 End: October 20, 2024 Goals (unrecognized section and content) Goals may be documented in a n alternate sectionGoals may be documented in an alternate sectionGoals may be documented in an alternate sectionGoals may be documented in an alternate sectionGoals may be documented in an alternate sectionGoals may be documented in an alternate sectionGoals may be documented in an alternate sectionGoals may be documented in an alternate sectionGoals may be documented in an alternate sectionGoals may be documented in an alternate sectionGoals may be documented in an alternate sectionGoals may be documented in an alternate sectionGoals may be documented in an alternate sectionGoals may be documented in an alternate sectionGoals may be documented in an alternate sectionGoals may be documented in an alternate sectionGoals may be documented in an alternate sectionGoals may be documented in an alternate sectionGoals may be documented in an alternate sectionGoals may be documented in an alternate section Source Comments (unrecognize d section and content) In the event this informatio n is protected by the Federal Confidentiality of Alcohol and Drug Abuse Patient Records regulations: The Federal rules restrict any use of the information to criminally investigate or prosecute any alcohol or drug abuse patient.[facility] the event this information is protected by the Federal Confidentiality of Alcohol and Drug Abuse Patient Records regulations: The Federal rules restrict any use of the information to criminally investigate or prosecute any alcohol or drug abuse patient.[facility] Center[facility] the event this information is protected by the Federal Confidentiality of Alcohol and Drug Abuse Patient Records regulations: The Federal rules restrict any use of the information to criminally investigate or prosecute any alcohol or drug abuse patient.[facility] the event this information is protected by the Federal Confidentiality of Alcohol and Drug Abuse Patient Records regulations: The Federal rules restrict any use of the information to criminally investigate or prosecute any alcohol or drug abuse patient.[facility] Center[facility] the event this information is protected by the Federal Confidentiality of Alcohol and Drug Abuse Patient Records regulations: The Federal rules restrict any use of the information to criminally investigate or prosecute any alcohol or drug abuse patient.[facility] Center[facility] the event this information is protected by the Federal Confidentiality of Alcohol and Drug Abuse Patient Records regulations: The Federal rules restrict any use of the information to criminally investigate or prosecute any alcohol or drug abuse patient.[facility] Center[facility] the event this information is protected by the Federal Confidentiality of Alcohol and Drug Abuse Patient Records regulations: The Federal rules restrict any use of the information to criminally investigate or prosecute any alcohol or drug abuse patient.[facility] Center[facility] the event this information is protected by the Federal Confidentiality of Alcohol and Drug Abuse Patient Records regulations: The Federal rules restrict any use of the information to criminally investigate or prosecute any alcohol or drug abuse patient.[facility] Center[facility] the event this information is protected by the Federal Confidentiality of Alcohol and Drug Abuse Patient Records regulations: The Federal rules restrict any use of the information to criminally investigate or prosecute any alcohol or drug abuse patient.[facility] CenterIn the event this information is protected by the Federal Confidentiality of Alcohol and Drug Abuse Patient Records regulations: The Federal rules restrict any use of the information to criminally investigate or prosecute any alcohol or drug abuse patient.[facility] CenterIn the event this information is protected by the Federal Confidentiality of Alcohol and Drug Abuse Patient Records regulations: The Federal rules restrict any use of the information to criminally investigate or prosecute any alcohol or drug abuse patient.[facility] CenterIn the event this information is protected by the Federal Confidentiality of Alcohol and Drug Abuse Patient Records regulations: The Federal rules restrict any use of the information to criminally investigate or prosecute any alcohol or drug abuse patient.[facility] CenterIn the event this information is protected by the Federal Confidentiality of Alcohol and Drug Abuse Patient Records regulations: The Federal rules restrict any use of the information to criminally investigate or prosecute any alcohol or drug abuse patient.[facility] CenterIn the event this information is protected by the Federal Confidentiality of Alcohol and Drug Abuse Patient Records regulations: The Federal rules restrict any use of the information to criminally investigate or prosecute any alcohol or drug abuse patient.[facility] CenterIn the event this information is protected by the Federal Confidentiality of Alcohol and Drug Abuse Patient Records regulations: The Federal rules restrict any use of the information to criminally investigate or prosecute any alcohol or drug abuse patient.[facility] CenterIn the event this information is protected by the Federal Confidentiality of Alcohol and Drug Abuse Patient Records regulations: The Federal rules restrict any use of the information to criminally investigate or prosecute any alcohol or drug abuse patient.[facility] CenterIn the event this information is protected by the Federal Confidentiality of Alcohol and Drug Abuse Patient Records regulations: The Federal rules restrict any use of the information to criminally investigate or prosecute any alcohol or drug abuse patient.[facility] Inactive Administered Medications - up to 3 most recent administrations Administered Medications (un recognized section and content) Medication Order MAR Action Action Date Dose Rate Site aflibercept intravitreal injection 2 mg/0.05 mL (EYLEA) 2 mg, ONCE, 1 dose, Starting on Sun04/24/23 at 1527, Until Sun04/24/23 at 1527 Given 04/24/2023 3:27 PM EST 2 mg Le ft fluorescein-benoxinate 0.3-0.4 % 1 Drop (FLURESS) 1 Drop, BOTH EYES, DIRECTED, Starting on Sun04/24/23 at 1430, Until Sun04/25/23 at 0229, Administer for applanation tonometry. In the event of a Fluress shortage, administer Lorene-Fluor 1 drop into both eyes as directed for applanation tonometry, [facility] MED ORDERS Given 04/24/2023 2:30 PM EST 1 Drop PHENYLephrine 2.5 % 1 Drop (AK-DILATE, MELISSA-SYNEPHRINE) 1 Drop, BOTH EYES, DIRECTED, Starting on Sun04/24/23 at 1430, Until Sun04/25/23 at 0229, Administer for dilation PROTECT FROM LIGHT, [facility] MED ORDERS Given 04/24/2023 2:30 PM EST 1 Drop tropicamide 1 % 1 Drop (MYDRIACYL) 1 Drop, BOTH EYES, DIRECTED, Starting on Sun04/24/23 at 1430, Until Sun04/25/23 at 0229, Administer for dilation, [facility] MED ORDERS Given 04/24/2023 2:30 PM EST 1 Drop FOR RECORDS PERTAINING TO PATIENTS WHO ARE OR HAVE BEEN ENROLLED IN A CHEMICAL DEPENDENCY/SUBSTANCEABUSE PROGRAM, SOME INFORMATION MAY BE OMITTED. This clinical summary was aggregated from multiple sources. Caution should be exercised in using it in the provision of clinical care. This summary normalizes information from multiple sources, and as a consequence, information in this document may materially change the coding, format and clinical context of patient data. In addition, data may be omitted in some cases. CLINICAL DECISIONS SHOULD BE BASED ON THE PRIMARY CLINICAL RECORDS. [facility]. provides no warranty or guarantee of the accuracy or completeness of information in this document.
[2025-02-19 10:41] LABS: Prothrombin Time (Protime)PT. 21.9 SECONDS (11.7-14.9)
== END | disposition home or self-care (01) ==
LOC: LAB 09:43
PROVIDERS: PCP Family Medicine Geriatric Medicine; Visit Provider Family Medicine Geriatric Medicine
DX: I48.91 Unspecified atrial fibrillation (principal); Z79.01 Long term (current) use of anticoagulants
CPT/HCPCS: 36415; 85610